=== PATIENT | female | born 1950 | race Caucasian/White ===

== ENCOUNTER 2017-12-31 21:53 | Inpatient (IN) | payer MEDICARE ==
--- NOTE | 2017-12-31 22:42 | RAD ---
AP VIEW CHEST: INDICATIONS: Dyspnea. Diaphoresis. COMPARISON: 05/17/2016 IMPRESSION: There is stable cardiomegaly. No confluent air space opacity or pleural effusion is evident. There is stable elevation of the right hemidiaphragm. No acute osseous abnormality is evident. POS: H
[2017-12-31 23:04] LABS: #Eosinphils 0.2 thou/uL (0.0-0.7); #Monocytes 0.7 thou/uL (0.11-0.59); #Neutrophils 4.1 thou/uL (1.40-6.50); %Basophils 0.4 % (0.0-1.0); %Eosinophils 3.6 % (0.0-10.0); %Lymphocytes 17.1 % (21.0-51.0); %Monocytes 10.7 % (0.0-10.0); %Neutrophils 68.2 % (42.0-75.0); Hemoglobin 10.2 g/dL (12.0-16.0); Mean Corpuscular HGB CONC 32.1 g/dL (32.0-36.0); Mean Corpuscular Hemoglobin 27.9 pg (27.0-31.0); Mean Corpuscular Volume 86.9 fl (81.0-99.0); Mean Platelet Volume 7.3 fL (7.4-10.4); Platelet Count 250 thou/uL (130-400); RBC Distribution Width 14.5 % (11.5-14.5); Red Blood Cell (RBC) Count 3.64 mill/uL (4.20-5.40); White Blood Cell (WBC) Count 6.1 thou/uL (4.8-10.8)
[2017-12-31 23:22] LABS: ALT (SGPT) 20 U/L (8-55); AST (SGOT) 32 U/L (5-34); Albumin 3.3 g/dL (3.4-4.8); Alkaline Phosphatase 94 U/L (40-150); Anion Gap 12 mmol/L (10-20); BUN (Urea Nitrogen) 15 mg/dL (9.8-20.1); Bilirubin, Total 1.2 mg/dL (0.2-1.2); CK (CPK) 185 U/L (29-168); Calc. Creatinine Clearance 0 mL/min (70-130); Calcium 8.9 mg/dL (7.8-10.44); Carbon Dioxide 27 mmol/L (23-31); Chloride 105 mmol/L (98-107); Estimated GFR-MDRD 49; Globulin 2.6 g/dL (2.4-3.5); Glucose 87 mg/dL (80-115); Lipase 9 U/L (8-78); Potassium 3.1 mmol/L (3.5-5.1); Protein, Total 5.9 g/dL (6.0-8.3); Sodium 141 mmol/L (136-145)
[2017-12-31] MEDS ORDERED: Labetalol HCl 100 MG/20 ML VIAL ONE (23:25)
[2017-12-31 23:26] LABS: Troponin I 0.036 ng/mL (< 0.028)
[2018-01-01] MEDS ORDERED: Furosemide 40 MG/4 ML VIAL ONE (00:36)
[2018-01-01] MEDS ORDERED: Nitroglycerin 2% Ointment 1 INCH/1 GM Packet ONE (00:36)
[2018-01-01] MEDS ORDERED: Labetalol HCl 100 MG/20 ML VIAL ONE (01:37)
[2018-01-01] MEDS ORDERED: Acetaminophen 325 MG TAB PO PRN (02:51)
[2018-01-01] MEDS ORDERED: Ondansetron HCl/PF 4 MG/2 ML Vial IVP PRN (02:51)
[2018-01-01] MEDS ORDERED: Ondansetron ODT 4 MG TAB SL PRN (02:51)
[2018-01-01] MEDS: Nitroglycerin 2% Ointment 1 INCH/1 GM Packet TOP SCH ×3 (03:45→17:17)
[2018-01-01 03:46] LABS: Troponin I 0.048 ng/mL (< 0.028)
[2018-01-01] MEDS ORDERED: HYDROcodone/Acetaminophen 5/325 mg Tablet PO PRN (04:00)
[2018-01-01] MEDS ORDERED: Guaifenesin DM 100-10/5 ML UDCUP PO PRN (04:00)
[2018-01-01] MEDS ORDERED: Dextrose 5% in Water 1,000 ML IV PRN (04:00)
[2018-01-01] MEDS ORDERED: Dextrose 50% Abboject 50 ML SYRINGE SLOW IVP PRN (04:00)
[2018-01-01] MEDS ORDERED: Enoxaparin Sodium 40 MG/0.4 ML SYRINGE SC SCH (04:00)
[2018-01-01] MEDS: Furosemide 40 MG/4 ML VIAL SLOW IVP SCH ×2 (05:44→14:33)
[2018-01-01] MEDS: hydrALAZINE 20 MG/ML VIAL SLOW IVP PRN ×2 (05:51→12:18)
[2018-01-01] MEDS ORDERED: Aspirin 325 MG TAB PO SCH (08:00)
[2018-01-01 08:02] LABS: CKMB 3.9 ng/mL (0-6.6); Troponin I 0.038 ng/mL (< 0.028)
--- NOTE | 2018-01-01 09:21 | HP ---
PRIMARY CARE PHYSICIAN: Dr. Florida Mejia PRIMARY EQUITY RESEARCH ANALYST: Dr. Lenny Childs DATE OF ADMISSION: 01/01/2018 TIME OF SERVICE: O245. CHIEF COMPLAINT: Shortness of breath. HISTORY OF PRESENT ILLNESS: Ms. Bruce is a 67-year-old female with history of diabetes, insulin-de pendent, hypertension, GERD, CHF and per echo is 05/18/2016 with combined diastolic and systolic, chr onic anemia, CKD, neuropathy and coronary disease. The patient was in normal state of health and presented to the emergency room today with increased sh ortness of breath and diaphoresis. The patient complains she has been having a cough for 7-8 months, seems to be worse when she lays monica k on one of her sides. She has also had some bilateral lower extremity edema. The patient denies an y chest pain. Oxygen saturations have been okay on room air. She has some dyspnea on exertion. She presented to the emergency department where she was found to have a BNP elevated to 1182, CK, CK- MB, and troponin I were normal except for mild elevation of troponin to 0.036. [facility], blood pressure also noted to be 220/92, potassium slightly low at 3.1. We were meyer bsequently called to admit for hypertensive emergency. The patient received medications on the floor, on arrival to the floor blood pressure reported was 13 0/63, repeat while I was in the room was 196/96. She had no complaints except for mild headache. No nausea, vomiting, no fevers or chills. No cough or sputum production. PAST MEDICAL HISTORY: 1. Diabetes mellitus type 2, insulin-dependent. 2. Hypertension. 3. Gastroesophageal reflux disease. 4. Congestive heart failure, chronic combined systolic and diastolic. 5. Anemia of chronic disease. 6. History of pulmonary edema in the past. 7. Chronic kidney disease, stage 3. 8. Neuropathy. 9. Coronary artery disease status post [place] in the past. 10. Gout. 11. She is legally blind. 12. Depression. PAST SURGICAL HISTORY: 1. Stent x4 back when she had her heart attack. 2. Bilateral cataract replacement. 3. Retina repair. 4. x2 remotely. 5. Tonsillectomy. HOME MEDICATIONS: 1. Gabapentin 300 mg p.o. b.i.d. 2. Plavix 75 mg daily. 3. Lisinopril 20 mg p.o. daily. 4. Protonix 40 mg p.o. daily. 5. Colchicine 0.6 mg 1/2 tablet every 2 weeks. 6. Lasix 40 mg p.o. daily. 7. Tylenol #3 p.r.n. 8. Traceba 30 units subcu daily. ALLERGIES: SULFA, ALLOPURINOL. FAMILY HISTORY: Negative for clotting or bleeding disorder, no immune dysfunction. SOCIAL HISTORY: Negative for habits x3. She lives at home, her daughter and granddaughter, sanket childs currently sits with her in the room, help take care of her. REVIEW OF SYSTEMS: A 10-point review of systems was performed and is negative for all systems except as stated as per HPI. PHYSICAL EXAMINATION: VITAL SIGNS: On arrival, temperature was 98.2, pulse 74, blood pressure 220/92, respiratory 18, satt ing 91% on room air. On arrival to the floor, temperature was 98.0, pulse 91, blood pressure 130/63, respiratory rate 19, satting 93% on room air. GENERAL: She is awake. She is alert. She is oriented x3. She is a well-developed, well-nourished, obese white female, appears to be in no distress. HEENT: She was normocephalic, atraumatic. Pupils are sluggish, but reactive bilaterally. Mucous rh ythm moist. She has no visible lesion or thrush. NECK: Supple. She had no lymphadenopathy, no JVD or thyromegaly. She has normal carotid upstrokes. I do not appreciate bruits. RESPIRATORY: Lungs clear bilaterally, no wheezes, no rales or rhonchi with good air movement. Symme tric chest excursion. CARDIOVASCULAR: Normal S1, S2. No S3, S4. No audible murmurs. ABDOMEN: Soft, it is obese, it is nontender. She has good bowel sounds in all 4 quadrants. There i s no rebound, rigidity or guarding. EXTREMITIES: Show no cyanosis, clubbing with trace pedal edema. SKIN: Warm, moist and well perfused. She has no rash or lesions. No palpable cords in her calves. MUSCULOSKELETAL: Normal to inspection. Large joints appear normal. There is no inflammation. No p alpable effusions. NEUROLOGIC: Pupils are sluggish. She can see shadows and movement, but no detail. Cranial nerves I I-XII be grossly intact, there is no focal neurologic deficits. She has normal speech pattern and 5/ 5 strength. LABORATORY DATA: Sodium 141, potassium 3.1, chloride 105, bicarbonate 27, BUN 15, creatinine 1.10, c alcium 8.9, glucose of 87. Liver functions are completely within normal limits. Total protein 5.9, albumin 3.3. CBC showed white count 6.1 with a normal differential. Hemoglobin 16.2, hematocrit 38.7, platelet co unt 250,000. Chest x-ray showed stable cardiomegaly, no confluent airspace opacity or pleural effusion. There is stable elevation of the left hemidiaphragm. No acute osseous abnormality. ASSESSMENT AND PLAN: 1. Acute on chronic combined systolic and diastolic congestive heart failure. BNP is elevated at 11 82, will give IV Lasix, we will get a 2D echocardiogram, it has been sometime since her last one, we will notify Dr. Childs of admission. We will get daily weights, strict I's and O's. 2. Diabetes mellitus type 2, insulin-dependent, we will continue home medications once she is eating . 3. Hypertension. She is on lisinopril and Lasix. We will continue. 4. Anemia. 5. Chronic kidney disease, stable. 6. Peripheral neuropathy as above. 7. Coronary artery disease, status post myocardial infarction. 8. Gout on every other week Colchicine 0.[address] will [address] the patient on observation. We will get serial cardiac biomarkers. Watch her on telem etry and place her on cardioprotective meds.
[2018-01-01] MEDS ORDERED: Acetaminophen/Codeine 30-300mg Tablet PO PRN (11:42)
[2018-01-01] MEDS: Acetaminophen 325 MG TAB PO PRN (12:47)
--- NOTE | 2018-01-01 13:02 | CON ---
DATE OF CONSULTATION: 01/01/2018 REASON FOR CONSULTATION: Previous history of CAD and shortness of breath. PRIMARY CHILD WELFARE DIRECTOR: Dr. Lneny Childs HISTORY: Ms. Bruce is a 67-year-old woman who is a patient of Dr. Lenny Childs. She has a hist ory of CAD, status post stent placement x4 five years ago after having suffered a myocardial infarcti on. She states over the last week and a half she has had diarrhea, nausea, and vomiting. She also had dr anette orozco over the last 3 days. No other ameliorating or relieving factors present. PAST MEDICAL HISTORY: Diabetes mellitus, hypertension, acid reflux, systolic heart failure, chronic kidney disease, gout, depression, legally blind, anemia of chronic disease, cataract surgery, C-secti on, tonsillectomy. HOME MEDICATIONS: Plavix, lisinopril, Protonix, colchicine, Lasix, Tylenol, Traceba and gabapentin. ALLERGIES: SULFA. FAMILY HISTORY: Negative for CAD. REVIEW OF SYSTEMS: Ten point review of systems reviewed, as above, otherwise negative. PHYSICAL EXAMINATION: VITAL SIGNS: Blood pressure 180/93, pulse 71, temperature 96.7. GENERAL: Patient is a pleasant female who is in no acute distress. The patient appears older than he r stated age. NEUROLOGIC: The patient is alert and oriented times 3 with no focal neurologic deficits. HEENT: Sclerae without icterus. Mouth has moist mucous membranes with normal pallor. NECK: No JVD. Carotid upstroke brisk. No bruits bilaterally. LUNGS: Clear to auscultation with unlabored respirations. BACK: No scoliosis or kyphosis. CARDIAC: Regular rate and rhythm with normal S1 and S2. No S3 or S4 noted. No significant rubs, mur murs, thrills, or gallops noted throughout the precordium. PMI is not displaced. There is no parast ernal heave. ABDOMEN: Soft, nontender, nondistended. No peritoneal signs present. No hepatosplenomegaly. No abn ormal striae. EXTREMITIES: 2+ femoral and 2+ dorsalis pedis pulses. No cyanosis, clubbing, or edema. SKIN: No gross abnormalities. PERTINENT LABS: Hemoglobin 10.2. Peak troponin 0.048. BNP of 1242. IMPRESSION: 1. Nausea, vomiting and diarrhea. 2. Coronary artery disease. 3. Status post myocardial infarction. 4. Shortness of breath. RECOMMENDATIONS: Ms. Bruce states her shortness of breath is fairly stable. Her main issue is ritesh sea, vomiting and diarrhea. She has been on colchicine. From a CV standpoint, I am not concerned ab out troponin. This is likely demand ischemia from previous history of CAD. Would continue conservat luz maria therapy. Echo with Doppler is pending. We will review. Recommendations per Dr. Childs in the a .m.
[2018-01-01 13:19] LABS: CKMB 3.6 ng/mL (0-6.6); Troponin I 0.036 ng/mL (< 0.028)
[2018-01-01 19:04] LABS: CKMB 3.2 ng/mL (0-6.6); Troponin I 0.049 ng/mL (< 0.028)
[2018-01-01] MEDS: Atorvastatin Calcium 20 MG TAB PO SCH (20:24)
[2018-01-01] MEDS: Gabapentin 300 MG CAP PO SCH (20:24)
[2018-01-02] MEDS: Nitroglycerin 2% Ointment 1 INCH/1 GM Packet TOP SCH ×3 (02:03→17:12)
[2018-01-02] MEDS: hydrALAZINE 20 MG/ML VIAL SLOW IVP PRN (04:04)
[2018-01-02 05:25] LABS: #Eosinphils 0.2 thou/uL (0.0-0.7); #Lymphocytes 0.6 thou/uL (1.20-3.40); #Monocytes 0.6 thou/uL (0.11-0.59); #Neutrophils 5.2 thou/uL (1.40-6.50); %Basophils 0.4 % (0.0-1.0); %Eosinophils 2.5 % (0.0-10.0); %Lymphocytes 9.3 % (21.0-51.0); %Monocytes 8.5 % (0.0-10.0); %Neutrophils 79.3 % (42.0-75.0); Hemoglobin 9.7 g/dL (12.0-16.0); Mean Corpuscular HGB CONC 31.7 g/dL (32.0-36.0); Mean Corpuscular Hemoglobin 27.7 pg (27.0-31.0); Mean Corpuscular Volume 87.2 fl (81.0-99.0); Mean Platelet Volume 7.3 fL (7.4-10.4); Platelet Count 264 thou/uL (130-400); RBC Distribution Width 14.9 % (11.5-14.5); White Blood Cell (WBC) Count 6.5 thou/uL (4.8-10.8)
[2018-01-02] MEDS: Furosemide 40 MG/4 ML VIAL SLOW IVP SCH (05:30)
[2018-01-02] MEDS: Acetaminophen 325 MG TAB PO PRN ×2 (05:36→11:32)
[2018-01-02 05:37] LABS: Anion Gap 12 mmol/L (10-20); BUN (Urea Nitrogen) 20 mg/dL (9.8-20.1); Calc. Creatinine Clearance 52 mL/min (70-130); Calcium 8.2 mg/dL (7.8-10.44); Carbon Dioxide 26 mmol/L (23-31); Cardiac Risk 4.6 (Less than 4.5); Chloride 107 mmol/L (98-107); Cholesterol 147 mg/dl (< 200 Desired); Estimated GFR-MDRD 34; Glucose 209 mg/dL (80-115); HDL Cholesterol 32 mg/dL (>60 Neg Risk); LDL Cholesterol, Calculated 98 mg/dL; Potassium 3.2 mmol/L (3.5-5.1); Sodium 142 mmol/L (136-145); Triglycerides 87 mg/dL (Less than 150)
[2018-01-02] MEDS: HumaLOG 300 UNITS/3 ML VIAL SC PRN ×4 (06:19→21:20)
[2018-01-02] MEDS ORDERED: Insulin Degludec [Tresiba Flextouch U-100] SC SCH (07:30)
[2018-01-02] MEDS: Lisinopril 20 MG TAB PO SCH (09:23)
[2018-01-02] MEDS: Gabapentin 300 MG CAP PO SCH ×2 (09:23→20:51)
[2018-01-02] MEDS: Clopidogrel Bisulfate 75 MG TAB PO SCH (09:24)
--- NOTE | 2018-01-02 10:53 | PDOC.PN ---
- Subjective Encounter Start Date: 01/02/18 Encounter Start Time: 10:35 Subjective: f/u for CHF exacerbation and dyspnea. Multiple complaints including -: diarrhea, nosebleeding, chest pain, leg pain and weakness. Nursing noted -: fever of 100.2 last pm receiving Tylenol. - Objective Resuscitation Status: Resuscitation Status FULL:Full Resuscitation MAR Reviewed: Yes Vital Signs & Weight: Vital Signs (12 hours) Temp Pulse Resp BP Pulse Ox 01/02/18 08:05 99.0 F 88 17 137/63 95 01/02/18 05:33 100.2 F H 197/87 H 01/02/18 05:13 100.1 F H 86 20 197/84 H 91 L 01/02/18 04:04 80 Weight Admit Weight 208 lb 6.4 oz Weight 208 lb 6.4 oz I&O: 01/01/18 01/02/18 01/03/18 06:59 06:59 06:59 Intake Total 560 Balance 560 Result Diagrams: 01/02/18 04:55 01/02/18 04:55 Additional Labs: Accuchecks 01/01/18 01/01/18 01/01/18 20:50 17:00 10:56 POC Glucose 216 H 180 H 105 Laboratory Tests 12/31/17 12/31/17 01/01/18 22:51 22:51 03:03 Potassium 3.1 L Creatinine 1.10 Hemoglobin A1c B-Natriuretic Peptide 1182.3 H 1242.2 H Triglycerides Cholesterol LDL Cholesterol, Calc HDL Cholesterol 01/02/18 01/02/18 01/02/18 04:55 04:55 04:55 Potassium Creatinine Hemoglobin A1c 7.0 H B-Natriuretic Peptide 901.2 H Triglycerides 87 Cholesterol 147 LDL Cholesterol, Calc 98 HDL Cholesterol 32 EKG Reviewed by me: Yes (Tele - SR in 90's) Phys Exam - Physical Examination Constitutional: NAD alert, responsive HEENT: PERRLA, moist MMs, sclera anicteric, oral pharynx no lesions Neck: no nodes, no JVD, supple diminished in bases Respiratory: no wheezing, no rales, no rhonchi Cardiovascular: RRR, no significant murmur, no rub, gallop Gastrointestinal: soft, non-tender, no distention, positive bowel sounds mild LE edema bilat Musculoskeletal: pulses present Neurological: non-focal, moves all 4 limbs Psychiatric: normal affect, A&O x 3 Skin: no rash, normal turgor, cap refill <2 seconds Dx/Plan (1) Acute on chronic diastolic (congestive) heart failure Code(s): I50.33 - ACUTE ON CHRONIC DIASTOLIC (CONGESTIVE) HEART FAILURE Status : Acute Comment: Improved with Lasix, decrease Lasix 20mg IV q12h, await 2D echo results (2) SHAMEKA (acute kidney injury) Code(s): N17.9 - ACUTE KIDNEY FAILURE, UNSPECIFIED Status: Acute Comment: mild SHAMEKA, decrease Lasix dosing, avoid nephrotoxic meds and contrast media, serial monitoirng (3) CKD (chronic kidney disease), stage III Code(s): N18.3 - CHRONIC KIDNEY DISEASE, STAGE 3 (MODERATE) Status: Chronic (4) Hypertension Code(s): I10 - ESSENTIAL (PRIMARY) HYPERTENSION Status: Chronic Qualifiers: Hypertension type: essential hypertension Qualified Code(s): I10 - Essential (primary) hypertension Comment: Continue Lisinopril and titrate to optimal response (5) Diarrhea Code(s): R19.7 - DIARRHEA, UNSPECIFIED Status: Acute Comment: Check stool for c. diff, Campylobacter, lactoferrin (6) Fever Code(s): R50.9 - FEVER, UNSPECIFIED Status: Acute Comment: ? etiology, check stool studies, monitor trend (7) Hypokalemia Code(s): E87.6 - HYPOKALEMIA Status: Acute Comment: KCL 40meq BID, repeat K + level in am - Plan plan discussed w/ family, PT/OT, social media sr strategy manager, out of bed/ambulate, DVT proph w/SCDs Stable overall -: Decrease Lasix 20mg IV q12h -: Continue Plavix and Lipitor -: Detemir 10u sc daily -: KCL 40meq BID * AM lab: BMP, CBC, stool studies
[2018-01-02] MEDS ORDERED: Furosemide 20 MG/2 ML VIAL SLOW IVP SCH (14:00)
--- NOTE | 2018-01-02 18:38 | PDOC.CTH ---
Cardiology Progress Note - Subjective She is doing better. No chest pain, tightness, pressure, SOB. - Objective Vital Signs Temp Pulse Resp BP Pulse Ox 01/02/18 16:04 99.0 F 78 16 162/68 H 96 01/02/18 12:00 98.9 F 90 17 179/81 H 95 01/02/18 08:05 99.0 F 88 17 137/63 95 01/02/18 08:00 98.9 F 90 17 95 Admit Weight 208 lb 6.4 oz Weight 208 lb 6.4 oz 01/01/18 01/02/18 01/03/18 06:59 06:59 06:59 Intake Total 560 1020 Output Total 670 Balance 560 350 - Physical Examination General/Neuro: alert & oriented x3, NAD Neck: no JVD present Lungs: unlabored respirations Heart: RRR Abdomen: NT/ND Extremities: + edema B (1+) - Telemetry Telemetry Rhythm: NSR - Labs Result Diagrams: 01/02/18 04:55 01/02/18 04:55 Troponin/CKMB CK-MB (CK-2) 3.2 ng/mL (0-6.6) 01/01/18 18:25 Troponin I 0.049 ng/mL (< 0.028) H 01/01/18 18:25 - Assessment/Plan 1. Acute gastroenteritis. 2. CAD 3. Elevated troponins, likely demand ischemia. 4. Acute on chronic systolic heart failure. PLAN: - Would stop IV lasix as creatinine going up. - Fluid balance will be difficult and would only treat with IV lasix once her diarrhea is better. - EF on echo at 45-50% - C-Diff pending. - Replace K. - Will follow.
[2018-01-02] MEDS: Atorvastatin Calcium 20 MG TAB PO SCH (20:51)
[2018-01-03] MEDS: hydrALAZINE 20 MG/ML VIAL SLOW IVP PRN ×2 (00:08→20:31)
[2018-01-03] MEDS: Nitroglycerin 2% Ointment 1 INCH/1 GM Packet TOP SCH ×3 (01:27→18:28)
[2018-01-03 06:06] LABS: Anion Gap 10 mmol/L (10-20); BUN (Urea Nitrogen) 25 mg/dL (9.8-20.1); Calc. Creatinine Clearance 48 mL/min (70-130); Calcium 8.5 mg/dL (7.8-10.44); Carbon Dioxide 27 mmol/L (23-31); Chloride 109 mmol/L (98-107); Estimated GFR-MDRD 31; Glucose 133 mg/dL (80-115); Potassium 3.2 mmol/L (3.5-5.1); Sodium 143 mmol/L (136-145)
[2018-01-03 06:09] LABS: Anisocytosis SLIGHT = 6-15 cells (100X) (0-5/hpf); Eosinophils 3 % (0-10); Hemoglobin 9.8 g/dL (12.0-16.0); Hypochromia SLIGHT = 6-15 cells (100X) (0-5/hpf); Lymphocytes 11 % (21-51); MDiff Complete? YES; Mean Corpuscular HGB CONC 31.3 g/dL (32.0-36.0); Mean Corpuscular Hemoglobin 27.8 pg (27.0-31.0); Mean Corpuscular Volume 88.8 fl (81.0-99.0); Mean Platelet Volume 7.5 fL (7.4-10.4); Monocytes 10 % (0-10); Neutrophil 76 % (42-75); PLT Morphology Comment Appears Adequate; Platelet Count 247 thou/uL (130-400); RBC Distribution Width 15.1 % (11.5-14.5); Red Blood Cell (RBC) Count 3.53 mill/uL (4.20-5.40); White Blood Cell (WBC) Count 6.5 thou/uL (4.8-10.8)
[2018-01-03 07:55] VITALS: BMI 35.6
[2018-01-03] MEDS: Clopidogrel Bisulfate 75 MG TAB PO SCH (09:47)
[2018-01-03] MEDS: Gabapentin 300 MG CAP PO SCH ×2 (09:47→20:30)
[2018-01-03] MEDS: Lisinopril 20 MG TAB PO SCH (09:47)
[2018-01-03] MEDS: Insulin Detemir 100 UNITS/ML 10 UNITS in Pre-Filled Syringe 1 EACH SC SCH (09:48)
[2018-01-03] MEDS: Acetaminophen 325 MG TAB PO PRN (09:50)
[2018-01-03] MEDS: HumaLOG 300 UNITS/3 ML VIAL SC PRN ×2 (11:26→16:43)
[2018-01-03] MEDS ORDERED: Potassium Chloride 20 MEQ TAB PO SCH ×4 (14:00)
--- NOTE | 2018-01-03 14:03 | PDOC.PN ---
- Subjective Encounter Start Date: 01/03/18 Encounter Start Time: 14:00 Subjective: f/u for CHF exacerbation and pt states feeling much better. Low- grade -: fever noted over 24h ago now resolved. No diarrhea. Good appetite. -: Still with multiple complaints but overall feels improved. - Objective Resuscitation Status: Resuscitation Status FULL:Full Resuscitation MAR Reviewed: Yes Vital Signs & Weight: Vital Signs (12 hours) Temp Pulse Pulse Pulse Resp BP BP 01/03/18 11:17 98.2 F 88 17 01/03/18 09:49 94 94 140/84 134/84 01/03/18 08:00 98.6 F 81 16 01/03/18 07:23 98.6 F 81 16 01/03/18 04:00 97.7 F 75 16 BP Pulse Ox 01/03/18 11:17 142/68 H 96 01/03/18 09:49 01/03/18 08:00 01/03/18 07:23 158/80 H 96 01/03/18 04:00 152/70 H 96 Weight Admit Weight 208 lb 6.4 oz Weight 208 lb I&O: 01/02/18 01/03/18 01/04/18 06:59 06:59 06:59 Intake Total 560 1500 Output Total 670 Balance 560 830 Result Diagrams: 01/03/18 05:24 01/03/18 05:24 Additional Labs: Accuchecks 01/03/18 01/03/18 01/02/18 10:24 05:23 20:50 POC Glucose 276 H 131 H 240 H 01/02/18 16:31 POC Glucose 222 H Radiology Reviewed by me: Yes (2D echo - EF 45-50%, mod-severe TR, mod MR) EKG Reviewed by me: Yes (Tele - SR) Phys Exam - Physical Examination Constitutional: NAD alert, smiling HEENT: PERRLA, moist MMs, sclera anicteric, oral pharynx no lesions Neck: no nodes, no JVD, supple Respiratory: no wheezing, no rales, no rhonchi, clear to auscultation bilateral II/ GWEN RUSB Cardiovascular: RRR, no rub, gallop Gastrointestinal: soft, non-tender, no distention, positive bowel sounds minimal LE edema Musculoskeletal: pulses present Neurological: non-focal, normal sensation, moves all 4 limbs Psychiatric: normal affect, A&O x 3 Skin: no rash, normal turgor, cap refill <2 seconds Dx/Plan (1) Acute on chronic diastolic (congestive) heart failure Code(s): I50.33 - ACUTE ON CHRONIC DIASTOLIC (CONGESTIVE) HEART FAILURE Status : Acute Comment: Improved with Lasix, currently Lasix held secondary to renal function, continue to monitor clinically (2) SHAMEKA (acute kidney injury) Code(s): N17.9 - ACUTE KIDNEY FAILURE, UNSPECIFIED Status: Acute Comment: mild SHAMEKA, Lasix on hold, serial monitoring (3) CKD (chronic kidney disease), stage III Code(s): N18.3 - CHRONIC KIDNEY DISEASE, STAGE 3 (MODERATE) Status: Chronic (4) Hypertension Code(s): I10 - ESSENTIAL (PRIMARY) HYPERTENSION Status: Chronic Qualifiers: Hypertension type: essential hypertension Qualified Code(s): I10 - Essential (primary) hypertension Comment: Continue Lisinopril and titrate to optimal response (5) Diarrhea Code(s): R19.7 - DIARRHEA, UNSPECIFIED Status: Acute Comment: Likely viral etiology, stool studies negative, resolving (6) Fever Code(s): R50.9 - FEVER, UNSPECIFIED Status: Acute Comment: ? etiology, suspected GI source, resolved (7) Hypokalemia Code(s): E87.6 - HYPOKALEMIA Status: Acute Comment: KCL 40meq BID, repeat K + level in am - Plan PT/OT, social worker aide, out of bed/ambulate Stable overall -: OOB/ambulate -: KCL 40meq x 1 dose now and BID -: Lasix on hold due to renal function -: AM lab: BMP * Likely home in am 01/04/18
[2018-01-03] MEDS: Potassium Chloride 20 MEQ TAB PO SCH ×2 (16:42)
--- NOTE | 2018-01-03 18:31 | PDOC.CTH ---
Cardiology Progress Note - Subjective She is doing much better. No chest pain, tightness, pressure, SOB. She continues to have diarrhea but better. - Objective Vital Signs Temp Pulse Pulse Pulse Resp BP BP 01/03/18 15:37 98.0 F 77 16 01/03/18 11:17 98.2 F 88 17 01/03/18 09:49 94 94 140/84 134/84 01/03/18 08:00 98.6 F 81 16 01/03/18 07:23 98.6 F 81 16 BP Pulse Ox 01/03/18 15:37 152/64 H 97 01/03/18 11:17 142/68 H 96 01/03/18 09:49 01/03/18 08:00 01/03/18 07:23 158/80 H 96 Admit Weight 208 lb 6.4 oz Weight 208 lb 01/02/18 01/03/18 01/04/18 06:59 06:59 06:59 Intake Total 560 1500 1510 Output Total 670 500 Balance 076 235 0575 - Physical Examination General/Neuro: alert & oriented x3, NAD Neck: no JVD present Lungs: unlabored respirations Heart: RRR Abdomen: NT/ND Extremities: + edema B (1+) - Telemetry Telemetry Rhythm: NSR - Labs Result Diagrams: 01/03/18 05:24 01/03/18 05:24 Troponin/CKMB CK-MB (CK-2) 3.2 ng/mL (0-6.6) 01/01/18 18:25 Troponin I 0.049 ng/mL (< 0.028) H 01/01/18 18:25 - Assessment/Plan 1. Acute gastroenteritis. 2. CAD, stable 3. Elevated troponins, likely demand ischemia. 4. Acute on chronic systolic heart failure. PLAN: - Continue to hold diuresis. - EF on echo at 45-50% - Replace K - CV stable, no new recs. - Would only restart Lasix PRN and on discharge back to home dose.
[2018-01-03] MEDS: Atorvastatin Calcium 20 MG TAB PO SCH (20:31)
[2018-01-04] MEDS: Nitroglycerin 2% Ointment 1 INCH/1 GM Packet TOP SCH ×2 (01:25→11:29)
[2018-01-04 05:25] LABS: Anion Gap 13 mmol/L (10-20); BUN (Urea Nitrogen) 29 mg/dL (9.8-20.1); Calc. Creatinine Clearance 46 mL/min (70-130); Calcium 8.2 mg/dL (7.8-10.44); Carbon Dioxide 24 mmol/L (23-31); Chloride 109 mmol/L (98-107); Estimated GFR-MDRD 29; Glucose 179 mg/dL (80-115); Potassium 4.2 mmol/L (3.5-5.1); Sodium 142 mmol/L (136-145)
[2018-01-04] MEDS: HumaLOG 300 UNITS/3 ML VIAL SC PRN ×2 (09:07→11:37)
[2018-01-04] MEDS: Insulin Detemir 100 UNITS/ML 10 UNITS in Pre-Filled Syringe 1 EACH SC SCH (09:08)
[2018-01-04] MEDS: Gabapentin 300 MG CAP PO SCH (09:09)
[2018-01-04] MEDS: Clopidogrel Bisulfate 75 MG TAB PO SCH (09:09)
[2018-01-04] MEDS: Lisinopril 20 MG TAB PO SCH (09:09)
[2018-01-04] MEDS: Potassium Chloride 20 MEQ TAB PO SCH ×4 (09:09→17:28)
--- NOTE | 2018-01-04 12:15 | DIS ---
DATE OF ADMISSION: 01/01/2018 DATE OF DISCHARGE: 01/04/2018 DISCHARGE DIAGNOSES: 1. Acute on chronic diastolic congestive heart failure with ejection fraction of 45%-50%. 2. Acute kidney injury on chronic kidney disease stage 3, improved. 3. Gastroenteritis with salmonella group C. 4. Hypertension, stable. 5. Hypokalemia, resolved. 6. Deconditioning. 7. Diabetes mellitus type 2, insulin requiring. CONSULTATION: Dr. Childs with Cardiology Service. PERTINENT LABORATORY DATA AND IMAGING DATA: Potassium ranged between 3.1-4.2, creatinine ranged betw een 1.10-1.72 with estimated GFR ranging between 29-49. Troponin I ranged between 0.036-0.049. BNP ranged between 2242-3046, total cholesterol 147, triglycerides 87, HDL 32, LDL 98. Hemoglobin A1c 7. 0. CBC showed hemoglobin ranging between 9.7-10.2. Stool culture dated 01/02/2018 positive for salm onella group C. Campylobacter and Shigella toxin negative on 01/02/2018. Stool lactoferrin positive on 01/02/2018. C. difficile antigen and toxin on 01/02/2018 negative. Portable chest x-ray dated 0 12/31/2017 showed no acute cardiopulmonary process. A 2D transthoracic echocardiogram dated 8 showed ejection fraction 45%-50%. Grade 2/3 diastolic dysfunction. Moderate mitral annular calcif ication. Moderate to severe mitral valve regurgitation. Moderate tricuspid valve regurgitation. El evated right ventricular systolic pressure 41 mmHg. HOSPITAL COURSE: The patient initially presented with increased shortness of breath in the context o f known diastolic congestive heart failure, placed on IV Lasix and undergoing 2D transthoracic echoca rdiogram showing findings as stated previously. The patient diuresed appropriately with overall decr ease in shortness of breath and dyspnea. The patient was evaluated by the Cardiology Service with re commendations for diuretic therapy and general supportive care. The patient was noted with mild hypo kalemia, receiving potassium chloride replacement therapy with stabilization and resolution of the hy pokalemia by the time of discharge. The patient continued to have loose stool and diarrhea during he r hospital course, undergoing stool evaluation with Salmonella group C positivity noted on 01/02/2018 . The patient treated with ampicillin 250 mg q.i.d. with recommendations for 7-day course of antibio tic therapy after discharge. Due to patient's overall deconditioned status and comorbid conditions, patient was deemed appropriate candidate for ongoing home health services including physical therapy. The patient receiving assistance from case management services for coordination of home health care on discharge. I have examined the patient at the time of discharge and discussed discharge planning , laboratory findings and plans for followup at which point patient has verbalized understanding and agreement. The patient overall clinically stable and ready for discharge on 01/04/2018. DISCHARGE MEDICATIONS: 1. Tylenol #3 300 mg/30 mg 1 tablet p.o. q. 12 hours p.r.n. pain. 2. Ampicillin 250 mg 1 tab p.o. q.i.d. x7 days. 3. Plavix 75 mg one tab p.o. daily. 4. Colchicine 0.3 mg p.o. every 2 weeks. 5. Lasix 40 mg p.o. daily p.r.n. 6. Gabapentin 300 mg p.o. b.i.d. 7. Tresiba FlexTouch 30 units subcutaneously daily. 8. Lisinopril 20 mg 1 tab p.o. daily. 9. Protonix 40 mg one tab p.o. daily. 10. Simvastatin 40 mg p.o. at bedtime. FOLLOWUP: The patient will follow up with Dr. Florida Mejia, primary care provider on 01/11/2018 at 1:15 p.m. Patient will follow up with Dr. Spring with Nephrology Service and to call his office fo r appointment time and date. The patient will follow up with Dr. Childs with [facility] and to call his office for appointment time and date. CONDITION ON DISCHARGE: Stable. ACTIVITY: Ad maegan. DIET: Heart healthy and ADA. SPECIAL INSTRUCTIONS: Cardiac rehabilitation outpatient. Home health services including physical th erapy on discharge. CODE STATUS: FULL. DISPOSITION: Home 01/04/2018. Total time preparing and coordinating discharge is 35 minutes.
[2018-01-04 17:16] VITALS: BP 142/66; TEMP 98.9
== END 2018-01-04 17:35 | disposition home or self-care (01) | DRG 291 ==
LOC: ERS 21:53 → 2NO 01-01 00:27
PROVIDERS: ADMIT Internal Medicine Infectious Disease; ATTEND Internal Medicine Infectious Disease
DX: I13.0 Hypertensive heart and chronic kidney disease with heart failure and stage 1 through stage 4 chronic kidney disease, or unspecified chronic kidney disease (principal); I50.43 Acute on chronic combined systolic (congestive) and diastolic (congestive) heart failure; N17.9 Acute kidney failure, unspecified; E11.22 Type 2 diabetes mellitus with diabetic chronic kidney disease; E11.42 Type 2 diabetes mellitus with diabetic polyneuropathy; A02.0 Salmonella enteritis; I24.8 Other forms of acute ischemic heart disease; K21.9 Gastro-esophageal reflux disease without esophagitis; I25.10 Atherosclerotic heart disease of native coronary artery without angina pectoris; D63.1 Anemia in chronic kidney disease; N18.3 Chronic kidney disease, stage 3 (moderate); M10.9 Gout, unspecified; I25.2 Old myocardial infarction; Z95.5 Presence of coronary angioplasty implant and graft; Z79.02 Long term (current) use of antithrombotics/antiplatelets; Z79.899 Other long term (current) drug therapy; Z79.4 Long term (current) use of insulin; E87.6 Hypokalemia
CPT/HCPCS: 36415; 36416; 71045; 80048; 80053; 80061; 82553; 83036; 83630; 83690; 83880; 84484; 85007; 85025; 85027; 87045; 87046; 87077; 87186; 87324; 87449; 87899; 93005; 93306; 93798; 96374; 96375; 96376; A4216; J0360; J1650; J1815; J1940

== ENCOUNTER 2018-01-22 18:42 | Emergency (ER) | payer MEDICARE ==
[~2018-01-22 18:42] MED LIST: ISOVUE-370 76%-LOCM 1 ML ONE; Iopamidol 370 76% 50 ML VIAL FS ONE
[2018-01-22 19:24] LABS: #Eosinphils 0.2 thou/uL (0.0-0.7); #Lymphocytes 0.6 thou/uL (1.20-3.40); #Monocytes 0.5 thou/uL (0.11-0.59); %Basophils 0.3 % (0.0-1.0); %Eosinophils 3.2 % (0.0-10.0); %Lymphocytes 7.9 % (21.0-51.0); %Monocytes 6.9 % (0.0-10.0); %Neutrophils 81.7 % (42.0-75.0); Hemoglobin 9.8 g/dL (12.0-16.0); Mean Corpuscular Hemoglobin 29.9 pg (27.0-31.0); Mean Corpuscular Volume 90.5 fl (81.0-99.0); Mean Platelet Volume 8.1 fL (7.4-10.4); Platelet Count 196 thou/uL (130-400); RBC Distribution Width 15.9 % (11.5-14.5); Red Blood Cell (RBC) Count 3.29 mill/uL (4.20-5.40); White Blood Cell (WBC) Count 7.4 thou/uL (4.8-10.8)
[2018-01-22 19:37] LABS: ALT (SGPT) 19 U/L (8-55); AST (SGOT) 30 U/L (5-34); Albumin 3.6 g/dL (3.4-4.8); Alkaline Phosphatase 94 U/L (40-150); Anion Gap 10 mmol/L (10-20); BUN (Urea Nitrogen) 35 mg/dL (9.8-20.1); Bilirubin, Total 0.9 mg/dL (0.2-1.2); CK (CPK) 494 U/L (29-168); Calc. Creatinine Clearance 0 mL/min (70-130); Calcium 8.4 mg/dL (7.8-10.44); Carbon Dioxide 27 mmol/L (23-31); Chloride 107 mmol/L (98-107); Estimated GFR-MDRD 31; Globulin 2.3 g/dL (2.4-3.5); Glucose 221 mg/dL (80-115); Potassium 4.2 mmol/L (3.5-5.1); Protein, Total 5.9 g/dL (6.0-8.3); Sodium 140 mmol/L (136-145)
[2018-01-22 19:41] LABS: Troponin I 0.024 ng/mL (< 0.028)
--- NOTE | 2018-01-22 20:31 | RAD ---
PORTABLE CHEST: 01/22/18 HISTORY: Dyspnea. Patient was eating a sandwich and had the feeling that the sandwich stuck in her throat. COMPARISON: 05/17/16 study. Heart size is enlarged. There are atherosclerotic changes of the aorta. There is what appears to be f ree air under the right hemidiaphragm. No pneumomediastinum is seen. The lungs are clear of infiltrat es. IMPRESSION: Possible free air into the right hemidiaphragm. This was discussed with Michelle Cunha and CT will be performed for further assessment. POS: [facility]
[2018-01-22] MEDS ORDERED: Ondansetron ODT 4 MG TAB ONE (20:59)
[2018-01-22] MEDS ORDERED: Morphine 4 MG/ML VIAL ONE (20:59)
--- NOTE | 2018-01-22 22:14 | CT ---
CT OF ABDOMEN AND PELVIS PERFORMED WITH INTRAVENOUS CONTRAST ENHANCEMENT: 01/22/18 HISTORY: Patient had questionable free air seen under the right hemidiaphragm on chest x-ray. Small bilateral pleural effusions, right larger than left are noted. There is some linear parenchymal change in the lung bases. Some of this linear density in the left base is curvilinear in nature and is what caused the appearance of air under the hemidiaphragm and actually just represents some linear scarring. This just curves in the same shape as the hemidiaphragm. Small amount of free fluid is see n anterior to the liver which shows no focal abnormalities. The spleen and pancreas regions are unrem arkable. Areas of increased attenuation within the gallbladder consistent with some small stones. Right and left adrenal glands and right and left kidneys are normal in size. There is some trace free fluid seen in the region of the mesentery and in the right pericolic gutter. There is also some free fluid noted within the pelvis. CT OF PELVIS PERFORMED WITH CONTRAST ENHANCEMENT: No adenopathy or mass. No free fluid. Sigmoid diverticulosis is noted. IMPRESSION: 1. Small bilateral pleural effusions right larger than left with minimal ascites also incidental ly noted. 2. Gallstones. 3. No evidence of free air. 4. Some mild edema changes are seen within the subcutaneous fat. POS: [facility]
== END 2018-01-23 00:59 | disposition home or self-care (01) ==
LOC: ERS 18:42
DX: R05 Cough (principal); M19.90 Unspecified osteoarthritis, unspecified site; D64.9 Anemia, unspecified; I50.9 Heart failure, unspecified; E11.40 Type 2 diabetes mellitus with diabetic neuropathy, unspecified; I25.2 Old myocardial infarction; M10.9 Gout, unspecified; F32.9 Major depressive disorder, single episode, unspecified; Z79.899 Other long term (current) drug therapy; Z79.82 Long term (current) use of aspirin
CPT/HCPCS: 36415; 71045; 74177; 80053; 82553; 83880; 84484; 85025; 87040; 93005; 96374; J2270; Q0162

== ENCOUNTER 2018-05-09 07:12 | Inpatient (IN) | payer MEDICARE ==
[2018-05-09 08:13] LABS: Cardiac Risk 4.2 (Less than 4.5)
[2018-05-09] MEDS ORDERED: Acetaminophen 500 MG TAB ONE (08:14)
[2018-05-09] MEDS ORDERED: Zolpidem Tartrate 5 MG TAB PO PRN (10:35)
[2018-05-09] MEDS ORDERED: Guaifenesin DM 100-10/5 ML UDCUP PO PRN (10:35)
[2018-05-09] MEDS ORDERED: Milk Of Magnesia 30 ML UDCUP PO PRN (10:35)
[2018-05-09 11:06] VITALS: BMI 30.5
[2018-05-09] MEDS ORDERED: Acetaminophen/Codeine 30-300mg Tablet PO PRN (11:21)
[2018-05-09] MEDS ORDERED: Ondansetron ODT 4 MG TAB PO PRN (11:24)
[2018-05-09] MEDS ORDERED: Colchicine 0.3 MG TAB PO SCH (11:30)
[2018-05-09] MEDS: hydrALAZINE 25 MG TAB PO SCH ×2 (14:04→20:21)
[2018-05-09] MEDS: Atorvastatin Calcium 20 MG TAB PO SCH (20:20)
[2018-05-09] MEDS: Carvedilol 6.25 MG TAB PO SCH (20:20)
[2018-05-09] MEDS: Gabapentin 300 MG CAP PO SCH (20:21)
[2018-05-09] MEDS: Sodium Chloride 0.9% 1,000 ML IV SCH (20:22)
[2018-05-10] MEDS ORDERED: Dextrose 50% Abboject 50 ML SYRINGE IVP PRN (00:27)
[2018-05-10] MEDS ORDERED: Dextrose 5% in Water 1,000 ML IV PRN (00:27)
[2018-05-10] MEDS: DULoxetine 60 MG CAP PO SCH (05:02)
[2018-05-10] MEDS: Gabapentin 300 MG CAP PO SCH ×2 (05:02→20:32)
[2018-05-10] MEDS: Furosemide 40 MG TAB PO SCH (05:02)
[2018-05-10] MEDS: Clopidogrel Bisulfate 75 MG TAB PO SCH (05:02)
[2018-05-10] MEDS: Carvedilol 6.25 MG TAB PO SCH ×2 (05:03→20:31)
[2018-05-10] MEDS: hydrALAZINE 25 MG TAB PO SCH ×3 (05:04→21:31)
[2018-05-10 05:47] LABS: #Eosinphils 0.3 thou/uL (0.0-0.7); #Lymphocytes 0.8 thou/uL (1.20-3.40); #Monocytes 0.4 thou/uL (0.11-0.59); #Neutrophils 3.1 thou/uL (1.40-6.50); %Basophils 0.5 % (0.0-1.0); %Eosinophils 6.4 % (0.0-10.0); %Lymphocytes 16.5 % (21.0-51.0); %Monocytes 8.6 % (0.0-10.0); Hemoglobin 8.7 g/dL (12.0-16.0); Mean Corpuscular HGB CONC 33.2 g/dL (32.0-36.0); Mean Corpuscular Hemoglobin 28.7 pg (27.0-31.0); Mean Corpuscular Volume 86.6 fL (78.0-98.0); Mean Platelet Volume 7.1 fL (7.4-10.4); Platelet Count 179 thou/uL (130-400); RBC Distribution Width 13.5 % (11.5-14.5); Red Blood Cell (RBC) Count 3.03 mill/uL (4.20-5.40); White Blood Cell (WBC) Count 4.6 thou/uL (4.8-10.8)
[2018-05-10 05:54] LABS: Anion Gap 13 mmol/L (10-20); BUN (Urea Nitrogen) 38 mg/dL (9.8-20.1); Calc. Creatinine Clearance 38 mL/min (70-130); Calcium 8.6 mg/dL (7.8-10.44); Carbon Dioxide 26 mmol/L (23-31); Chloride 106 mmol/L (98-107); Estimated GFR-MDRD 29; Glucose 244 mg/dL (80-115); Sodium 141 mmol/L (136-145)
[2018-05-10] MEDS: Lisinopril 20 MG TAB PO SCH (07:43)
[2018-05-10] MEDS ORDERED: HEPARIN ONE (08:41)
[2018-05-10] MEDS ORDERED: D5W ONE (08:41)
[2018-05-10] MEDS ORDERED: Lidocaine 1% (PF) 30 ML VIAL ONE (08:42)
[2018-05-10] MEDS ORDERED: Heparin 10,000 UNITS/1 ML VIAL ONE ×2 (09:47→09:57)
[2018-05-10] MEDS ORDERED: Clopidogrel Bisulfate 300 MG TAB ONE (09:57)
[2018-05-10] MEDS ORDERED: Iopamidol 370 76% 100 ML VIAL ONE (10:45)
[2018-05-10] MEDS ORDERED: Iopamidol 370 76% 50 ML VIAL FS ONE (10:45)
[2018-05-10] MEDS ORDERED: Nitroglycerin 0.4 MG TAB (25 Tab Bottle) SL PRN (12:09)
--- NOTE | 2018-05-10 15:18 | EKG ---
Test Reason : POST STENT Blood Pressure : / mmHG Vent. Rate : 066 BPM Atrial Rate : 066 BPM P-R Int : 146 ms QRS Dur : 148 ms QT Int : 488 ms P-R-T Axes : 056 -45 -35 degrees QTc Int : 511 ms Normal sinus rhythm Left axis deviation Right bundle branch block Inferior infarct (cited on or before 18-MAY-2016) Abnormal ECG Confirmed by BLANCO ONTIVEROS, QUETA ([id number]) on 05/10/2018 3:18:12 PM Referred By: MATTIE Confirmed By:QUETA SIMEON MD
[2018-05-10] MEDS: Sodium Chloride 0.9% 1,000 ML IV SCH (15:19)
[2018-05-10] MEDS: HumaLOG 300 UNITS/3 ML VIAL SC PRN ×2 (17:29→20:37)
[2018-05-10] MEDS: Atorvastatin Calcium 20 MG TAB PO SCH (20:31)
[2018-05-11 05:25] LABS: #Eosinphils 0.3 thou/uL (0.0-0.7); #Lymphocytes 0.6 thou/uL (1.20-3.40); #Monocytes 0.4 thou/uL (0.11-0.59); #Neutrophils 3.7 thou/uL (1.40-6.50); %Basophils 0.4 % (0.0-1.0); %Eosinophils 5.4 % (0.0-10.0); %Lymphocytes 11.7 % (21.0-51.0); %Monocytes 8.6 % (0.0-10.0); Hemoglobin 8.2 g/dL (12.0-16.0); Mean Corpuscular HGB CONC 33.5 g/dL (32.0-36.0); Mean Corpuscular Hemoglobin 28.9 pg (27.0-31.0); Mean Corpuscular Volume 86.3 fL (78.0-98.0); Mean Platelet Volume 7.3 fL (7.4-10.4); Platelet Count 178 thou/uL (130-400); RBC Distribution Width 13.7 % (11.5-14.5); Red Blood Cell (RBC) Count 2.84 mill/uL (4.20-5.40); White Blood Cell (WBC) Count 4.9 thou/uL (4.8-10.8)
[2018-05-11 05:39] LABS: ALT (SGPT) 10 U/L (8-55); AST (SGOT) 15 U/L (5-34); Albumin 2.8 g/dL (3.4-4.8); Alkaline Phosphatase 74 U/L (40-150); Anion Gap 9 mmol/L (10-20); BUN (Urea Nitrogen) 37 mg/dL (9.8-20.1); Bilirubin, Total 0.4 mg/dL (0.2-1.2); Calc. Creatinine Clearance 29 mL/min (70-130); Calcium 8.3 mg/dL (7.8-10.44); Carbon Dioxide 29 mmol/L (23-31); Chloride 103 mmol/L (98-107); Estimated GFR-MDRD 22; Globulin 2.8 g/dL (2.4-3.5); Glucose 192 mg/dL (80-115); Potassium 4.3 mmol/L (3.5-5.1); Protein, Total 5.6 g/dL (6.0-8.3); Sodium 137 mmol/L (136-145)
[2018-05-11 07:03] VITALS: BP 120/59; TEMP 98.8
[2018-05-11] MEDS ORDERED: Insulin Glargine 30 UNITS in Pre-Filled Syringe 1 EACH SC SCH (08:00)
[2018-05-11] MEDS: TRESIBA U SC SCH (08:00)
[2018-05-11] MEDS: Clopidogrel Bisulfate 75 MG TAB PO SCH (08:27)
[2018-05-11] MEDS: Furosemide 40 MG TAB PO SCH (08:27)
[2018-05-11] MEDS: Carvedilol 6.25 MG TAB PO SCH (08:27)
[2018-05-11] MEDS: DULoxetine 60 MG CAP PO SCH (08:27)
[2018-05-11] MEDS: Lisinopril 20 MG TAB PO SCH (08:27)
[2018-05-11] MEDS: hydrALAZINE 25 MG TAB PO SCH (08:27)
[2018-05-11] MEDS: Gabapentin 300 MG CAP PO SCH (08:28)
[2018-05-12] MEDS ORDERED: Insulin Glargine 30 UNITS in Pre-Filled Syringe 1 EACH SC SCH (07:30)
== END 2018-05-11 09:26 | disposition home or self-care (01) | DRG 247 ==
LOC: CCL 07:12 → 2NO 10:21
PROVIDERS: ADMIT Internal Medicine Cardiovascular Disease; ATTEND Internal Medicine Cardiovascular Disease
PROC: 027034Z Dilation of Coronary Artery, One Artery with Drug-eluting Intraluminal Device, Percutaneous Approach (ICD-10-PCS; principal; 2018-05-10)
PROC: 4A023N7 Measurement of Cardiac Sampling and Pressure, Left Heart, Percutaneous Approach (ICD-10-PCS; 2018-05-10)
PROC: B211YZZ Fluoroscopy of Multiple Coronary Arteries using Other Contrast (ICD-10-PCS; 2018-05-10)
DX: I25.10 Atherosclerotic heart disease of native coronary artery without angina pectoris (principal); I25.5 Ischemic cardiomyopathy; E11.319 Type 2 diabetes mellitus with unspecified diabetic retinopathy without macular edema; Z01.810 Encounter for preprocedural cardiovascular examination
CPT/HCPCS: 36415; 36416; 80048; 80053; 80061; 85025; 85027; 85347; 85610; 85730; 92928; 93005; 93010; 93454; 93798; A4216; C1769; C1874; C1887; C9600; J1644; J2001; Q0162

== ENCOUNTER 2019-02-27 23:32 | Inpatient (IN) | payer MEDICARE ==
[2019-02-28] MEDS ORDERED: Pantoprazole 80 MG in Sodium Chloride 0.9% 100 ML IVPB SCH (01:15)
[2019-02-28] MEDS ORDERED: Acetaminophen 325 MG TAB PO PRN (03:00)
[2019-02-28] MEDS ORDERED: Dextrose 5% in Water 1,000 ML IV PRN (03:20)
[2019-02-28] MEDS ORDERED: Dextrose 50% Abboject 50 ML SYRINGE SLOW IVP PRN (03:20)
[2019-02-28] MEDS ORDERED: Dextrose 50% Abboject 50 ML SYRINGE ONE ×2 (03:21→20:38)
[2019-02-28] MEDS ORDERED: Sodium Chloride 0.9% 1,000 ML IV SCH (03:30)
--- NOTE | 2019-02-28 03:56 | HP ---
PRIMARY CARE PROVIDER: [place] Mejia MD CHIEF COMPLAINT: Diarrhea. HISTORY OF PRESENT ILLNESS: Ms. Bruce is a pleasant 68-year-old lady, who was seen at [facility] on 02/28/2019. Therefore, she was transferred here from the emergency room at [place], where she presented complaining of diarrhea. She reports that approximately a month ago, she was treated with 10 days of an oral antibiotic for bronchitis. She started having diarrhea one week ago. She reports multiple loose stools. She denies any blood in stool. However, at [place], she was found to have occult blood in stool. She denies any abdominal pain, nausea, or vomiting. She reports generalized weakness. She denies any fevers. REVIEW OF SYSTEMS: All other systems reviewed and found to be negative. PAST MEDICAL HISTORY: Diabetes mellitus type 2, hypertension, gastroesophageal reflux disease, congestive heart failure, combined systolic and diastolic, anemia of chronic disease, pulmonary edema, chronic kidney disease, stage 3, neuropathy, coronary artery disease, status post [place], gout, legally blind, and depression. PAST SURGICAL HISTORY: PCI with stents, bilateral cataract surgery, retina repair, section x2, and tonsillectomy. FAMILY HISTORY: No family history of premature coronary artery disease. SOCIAL HISTORY: No history of tobacco use, alcohol use, or recreational drug use. She lives at home with her daughter and son-in-law. ALLERGIES: SULFA AND ALLOPURINOL. CURRENT MEDICATIONS: 1. Gabapentin 300 mg 2 times a day. 2. Plavix 75 mg daily. 3. Lisinopril 20 mg daily. 4. Pantoprazole 40 mg daily. 5. Colchicine 0.3 mg every two weeks. 6. Lasix 40 mg as needed. 7. Aspirin 81 mg daily. 8. Coreg 12.5 mg 2 times a day. 9. Simvastatin 40 mg daily. 10. Duloxetine 60 mg daily. PHYSICAL EXAMINATION: GENERAL: On examination, Ms. Bruce is awake and alert, not in acute distress. VITAL SIGNS: Blood pressure is 124/58, pulse 71, respiratory rate 18, and oxygen saturation 98% on room air. She is afebrile. EYES: No scleral icterus, no conjunctival pallor. ENT: Moist mucosal membranes. No oropharyngeal erythema or exudates. NECK: Supple, nontender, trachea is midline. RESPIRATORY: Accessory muscles of breathing are not active. Chest wall movements are symmetric bilaterally. LUNGS: Clear to auscultation without wheeze, rhonchi, or crepitations. CARDIOVASCULAR: S1 and S2 are heard, regular. Peripheral pulses palpable. ABDOMEN: Soft, nontender, bowel sounds heard. NEUROLOGIC: Cranial nerves 2 through 12 are intact. MUSCULOSKELETAL: She has bilateral lower extremity pitting edema. Power is 5/5 in all 4 extremities. SKIN: Few bruises. LYMPHATIC: No cervical lymphadenopathy. PSYCHIATRIC: Normal mood, normal affect, the patient is oriented to person, place, and time. LABORATORY DATA: Ms. Bruce's labs and investigations were reviewed. Had normal sinus rhythm, no ST changes to suggest an acute coronary syndrome. She had normal sodium, normal potassium, elevated blood urea nitrogen of 53, elevated creatinine of 2.5, she had a creatinine of 1.99 on 10/31/2018, normal total bilirubin, normal AST, normal ALT, normal alkaline phosphatase, elevated BNP of 1432, normal white count, normocytic anemia with hemoglobin 6.9. Hemoglobin was 8.2 in 09/2018, decreased platelet count of 150,000. Urinalysis that was negative for nitrite and leukocyte esterase. She had positive stool occult blood test. ASSESSMENT AND PLAN: Ms. Bruce is a pleasant 68-year-old lady, who was seen at [facility] on 02/28/2019. Her problem list includes: 1. Gastrointestinal bleed: Ms. Bruce is presenting with symptomatic anemia from anemia of acute blood loss in the GI tract. She will be admitted to the hospital for further management. She will be treated with PPI drip. Gastroenterology Service has been consulted by emergency room physician for opinion and help with management. 2. Diarrhea: We will check stool cultures as well as stool Clostridium difficile toxin test, since she was recently treated with antibiotics. 3. Acute on chronic stage 3 kidney disease: We will provide gentle hydration and recheck creatinine. The patient has a history of chronic combined heart failure but does not appear to be in heart failure exacerbation at this time. 4. Diabetes mellitus type 2: We will start Accu-Cheks and insulin sliding scale. 5. Coronary artery disease: Appears to be stable. 6. Gout: Appears to be stable. Many thanks for allowing me to participate in your patient's care. Please feel free to contact me with any questions or concerns. LEVEL OF RISK: Moderate. LEVEL OF COMPLEXITY: Moderate. Job ID: [id number]
[2019-02-28] MEDS ORDERED: [UNRECOGNIZED DRUG - REMARK] IVPB PRN (04:00)
--- NOTE | 2019-02-28 04:04 | PDOC.EVN ---
Event Note - Event Note Event Note: Following admission, pt was hypothermic and bradycardiac. Arely hugger started. Blood cultures to be sent and urine studies as well. Start empiric antibiotics for sepsis (IV vancomycin and Zosyn).
[2019-02-28] MEDS ORDERED: Vancomycin HCl 1.5 GM in Sodium Chloride 0.9% 250 ML 300 ML IVPB SCH (04:30)
[2019-02-28 04:33] LABS: Base Excess (BEa) -0.6 mEq/L (-2.0 to +3.0); CO2 Tension 39.4 mmHg (35.0-45.0); Calcium, Ionized 1.16 mmol/L (1.12-1.30); Carboxyhemoglobin (COHb) 1.7 gm% (0.0-3.0); Hemoglobin (Hb) 7.7 g/dL (12.0-16.0); O2 Tension (PaO2) 111.7 mmHg (> 70.0); Potassium - ABG Lab 3.28 mmol/L (3.70-5.30)
[2019-02-28] MEDS: Piperacillin/Tazobactam 2.25 GM in Sodium Chloride 0.9% 100 ML IVPB SCH ×3 (04:33→18:42)
[2019-02-28 04:34] LABS: Puncture Site LRA
[2019-02-28 04:41] LABS: #Eosinphils 0.2 thou/uL (0.0-0.7); #Lymphocytes 0.5 thou/uL (1.20-3.40); #Monocytes 0.5 thou/uL (0.11-0.59); #Neutrophils 2.6 thou/uL (1.40-6.50); %Basophils 0.4 % (0.0-1.0); %Eosinophils 6.3 % (0.0-10.0); %Monocytes 13.9 % (0.0-10.0); %Neutrophils 67.4 % (42.0-75.0); Hemoglobin 7.3 g/dL (12.0-16.0); Mean Corpuscular HGB CONC 31.2 g/dL (32.0-36.0); Mean Corpuscular Hemoglobin 26.9 pg (27.0-31.0); Mean Corpuscular Volume 86.3 fL (78.0-98.0); Mean Platelet Volume 9.3 fL (7.4-10.4); Platelet Count 143 thou/uL (130-400); RBC Distribution Width 16.2 % (11.5-14.5); Red Blood Cell (RBC) Count 2.71 mill/uL (4.20-5.40); White Blood Cell (WBC) Count 3.8 thou/uL (4.8-10.8)
[2019-02-28 04:45] LABS: Anion Gap 11 mmol/L (10-20); BUN (Urea Nitrogen) 53 mg/dL (9.8-20.1); Calc. Creatinine Clearance 37 mL/min (70-130); Calcium 8.2 mg/dL (7.8-10.44); Carbon Dioxide 24 mmol/L (23-31); Chloride 108 mmol/L (98-107); Estimated GFR-MDRD 22; Glucose 66 mg/dL (80-115); Potassium 3.3 mmol/L (3.5-5.1); Sodium 140 mmol/L (136-145)
[2019-02-28] MEDS: Dextrose 5 % And 0.9 % NaCl 1,000 ML IV SCH (04:48)
--- NOTE | 2019-02-28 04:48 | PDOC.EVN ---
Event Note - Event Note Event Note: Pt evaluated. Lethargic, sleeping off after briefly waking up. S1, S2, reg. Lungs CTA. ABGs reviewed. Blood work and antibiotics pending. Pt has episodes of hypoglycemia, most likely due to 20 units of regular insulin she received. Pt also has acute on chronic renal failure. Will transfer pt to [facility] for close monitoring on telemetry and to follow accuchecks.
[2019-02-28 04:50] LABS: Lactic Acid 0.9 mmol/L (0.5-2.2)
[2019-02-28 04:51] LABS: Troponin I 0.019 ng/mL (< 0.028)
[2019-02-28 05:01] LABS: Bilirubin Negative (Negative); Blood, Urine Negative (Negative); Clarity CLEAR (Clear); Glucose, Urine (Dipstick) Negative (Negative); Leukocyte Small (Negative); Nitrite Negative (Negative); Protein, Urine (Dipstick) Trace mg/dL (Neg-Trace); Urobilinogen 0.2 mg/dL (0.2-1.0)
[2019-02-28 05:02] LABS: Bacteria/HPF None Seen HPF (None Seen); Hyaline Casts/LPF 4-6 HYALINE CAST LPF (0-3 Hyaline); Pathc Cast-AUWi Flag 0.54 (0-2.49); RBC/HPF 0-3 HPF (0-3); Squamous Epithelial 0-3 HPF (0-3)
--- NOTE | 2019-02-28 10:35 | CON ---
DATE OF CONSULTATION: 02/28/2019 The following encompassed 50 minutes time, of that time, greater than 50% was spent with the patient and/or the patient's unit in the hospital. HISTORY OF PRESENT ILLNESS: The patient is a 68-year-old female, who was admitted to the Hospitalist Service yesterday with intractable diarrhea. Apparently, she developed hypoglycemia last night after receiving some insulin. She was transferred down here for closer monitoring. She now feels back to her baseline. PAST MEDICAL HISTORY: 1. Type 2 diabetes mellitus, requiring insulin. 2. Hypertension. 3. Gastroesophageal reflux. 4. Blindness. 5. Congestive heart failure with systolic heart dysfunction. 6. Chronic kidney disease, stage 3. 7. Peripheral neuropathy. 8. Coronary artery disease. 9. Myocardial infarction. 10. Gout. PAST SURGICAL HISTORY: 1. PCI with stent. 2. Bilateral cataract surgery. 3. Retina repair. 4. section x2. 5. Tonsillectomy. FAMILY MEDICAL HISTORY: Unremarkable. SOCIAL HISTORY: Nonsmoker. Does not consume alcohol. She lives at home with daughter and son-in-law. ALLERGIES: SULFA AND ALLOPURINOL. MEDICATIONS: Prior to admission; 1. Gabapentin. 2. Plavix. 3. Lisinopril. 4. Pantoprazole. 5. Colchicine. 6. Lasix. 7. Aspirin. 8. Coreg. 9. Simvastatin. 10. Duloxetine. REVIEW OF SYSTEMS: Twelve-point review of systems is otherwise negative. PHYSICAL EXAMINATION: VITAL SIGNS: Temperature 96.4, pulse 57, respirations 19, and O2 saturation 100% on room air. GENERAL: She is awake, alert, in no distress. HEENT: Has a blank stare on her face because she is blind. Oropharynx is clear. NECK: No adenopathy or JVD. CHEST: Clear to auscultation without wheezing or rhonchi. CARDIAC: S1 and S2 regular without murmur. ABDOMEN: Soft, nontender, and nondistended. EXTREMITIES: No clubbing, cyanosis, or edema. LABORATORY DATA: White blood cell count 3.8, hematocrit 23.3, hemoglobin 7.3, and platelet count 143. PH of 7.40, pCO2 of 39, and pO2 of 111. Sodium 140, potassium 3.3, chloride 108, CO2 of 24, BUN 53, creatinine 2.2, and glucose 117. ASSESSMENT: 1. Transient hypoglycemia, which is now resolved. 2. Hypovolemia secondary to gastrointestinal bleeding. RECOMMENDATIONS: 1. Recommend GI consultation. 2. Can transfer back out to the floor at any time. 3. We would just treat with sliding-scale insulin until she is able to eat again. 4. We would consider discontinuing antibiotics as she does not appear septic. Job ID: [id number]
[2019-02-28 12:10] LABS: Hemoglobin 9.7 g/dL (12.0-16.0)
[2019-02-28] MEDS: Pantoprazole 80 MG in Sodium Chloride 0.9% 100 ML IVPB SCH ×2 (12:39→22:33)
[2019-02-28] MEDS ORDERED: GoLYTELY 4,000 ml Bottle PO SCH (22:30)
[2019-03-01] MEDS: Dextrose 5 % And 0.9 % NaCl 1,000 ML IV SCH (01:01)
--- NOTE | 2019-03-01 02:58 | CON ---
DATE OF CONSULTATION: 02/28/2019 REASON FOR CONSULTATION: Symptomatic anemia, diarrhea. CONSULTING PHYSICIAN: Dr. Juan Colbert. HISTORY OF PRESENT ILLNESS: The patient is a 68-year-old female with past medical history of diabetes, hypertension, GERD, congestive heart failure, anemia of chronic disease, pulmonary edema, chronic kidney disease stage 3, neuropathy, coronary artery disease status post [place], gout, depression, and legal blindness, presenting with complaints of weakness. She states that she was in her usual state of health until approximately 1 week ago when she began having increased frequency of diarrhea having approximately 8 to 10 liquid bowel movements per day. This was associated with increased weakness, decreased appetite and increased flatulence as well as increased abdominal bloating, weight gain, and swelling of the upper and lower extremities. She also notes that prior to the onset of her diarrhea, she had attempted using "concoction" composed primarily of cinnamon and cayenne pepper as a weight loss measure with the significant diarrhea occurring afterwards. However, with worsening weakness over this last week, it prompted her to seek healthcare admission in [place], [place] where she was noted to have a significant decrease in her H and H, prompting transfer to [facility] for further evaluation. On presentation to the hospital, she denies any history of overt GI bleeding including hematemesis, melena, or hematochezia. Also during this admission, she denies any further episodes of diarrhea. However, she does endorse dysphagia occurring with both solids and pills occurring at the level of the thyroid cartilage, but is able to swallow liquids without any difficulty. Of note, while in the [place] [facility], she was noted to be significantly anemic and transfused approximately 1 unit of PRBCs. REVIEW OF SYSTEMS: A 10-category review of systems was obtained with all responses negative except for the pertinent positives as listed in HPI. PAST MEDICAL HISTORY: As per HPI. PAST SURGICAL HISTORY: PCI with stent placement, bilateral cataract surgery with retina repair, x2 and tonsillectomy. FAMILY HISTORY: Denies any GI malignancies. SOCIAL HISTORY: Denies any tobacco, alcohol, or illicit drug use. OUTPATIENT MEDICATIONS: Reviewed. ALLERGIES: SULFA AND ALLOPURINOL. PHYSICAL EXAMINATION: VITAL SIGNS: Temperature 98.3, pulse 68, blood pressure 120/80, respiratory rate 21, saturating 96% on room air. GENERAL: The patient was lying in bed, in no acute distress. Alert and oriented x4. HEENT: Normocephalic, atraumatic. NECK: Supple with no JVD or scleral icterus noted. CARDIOVASCULAR: Regular rate and rhythm with no discernible murmurs, gallops, or rubs. RESPIRATORY: Clear to auscultation bilaterally with no discernible wheezes or rales. ABDOMEN: Normoactive bowel sounds. Soft, nontender, nondistended. EXTREMITIES: No cyanosis, clubbing, or edema. LABORATORY DATA: CBC with a white blood cell count of 3.8, hemoglobin 7.3, hematocrit 23.3, platelets 143. Chemistry with a sodium of 140, potassium 3.3, chloride 108, CO2 of 24, BUN 53, creatinine 2.2, glucose 66. IMAGING DATA: No current GI imaging is available for review. ASSESSMENT AND PLAN: The patient is a 68-year-old female with past medical history of diabetes, hypertension, gastroesophageal reflux disease, congestive heart failure, pulmonary edema, chronic kidney disease, stage 3, neuropathy, coronary artery disease status post myocardial infarction, gout, legal blindness, depression, and anemia of chronic disease presenting with symptomatic anemia. Symptomatic anemia. The patient is presenting with a recent history of increased diarrhea over the last week, characterized as having 8-10 bowel movements per day. However, over the same time period, she was endorsing increased weakness, decreased appetite and swelling of the upper lower extremities. On admission, she was noted to have a significant decrease in her hemoglobin and hematocrit concerning for possible gastrointestinal blood loss. She subsequently underwent a fecal occult blood testing in [place], which was positive (although this was just a colorectal cancer screening test and does not indicate active gastrointestinal bleeding). She currently denies any symptoms consistent with overt gastrointestinal bleeding and no iron indices were drawn prior to the installation of packed red blood cells making any further evaluation of her anemia unfeasible. She has never had a colonoscopy before, but she denies any family history of colorectal cancer, which places her at average risk for colorectal cancer itself. At this time, she is presenting with possible symptomatic anemia, but whether or not this is due to an iron-deficiency anemia, due to chronic gastrointestinal blood loss or anemia of chronic disease is unclear at this time. RECOMMENDATIONS: 1. We would continue to trend H and H and transfuse as necessary to maintain an H and H of 7/. 2. Continue to monitor clinically for signs of active GI bleeding. 3. Given the uncertainty of possible GI bleeding, we will plan for both EGD and colonoscopy tomorrow for further evaluation. If both of these studies are negative, we would then strongly consider a diagnosis of anemia of chronic disease. 4. Continue to monitor patient for any additional diarrhea and/or blood loss. 5. We will continue to follow. Please call with any questions. Job ID: [id number]
[2019-03-01 08:38] LABS: #Basophils 0.1 thou/uL (0.0-0.2); #Eosinphils 0.2 thou/uL (0.0-0.7); #Lymphocytes 0.6 thou/uL (1.20-3.40); #Monocytes 0.6 thou/uL (0.11-0.59); #Neutrophils 5.3 thou/uL (1.40-6.50); %Basophils 0.8 % (0.0-1.0); %Eosinophils 3.1 % (0.0-10.0); %Lymphocytes 8.5 % (21.0-51.0); %Monocytes 9.4 % (0.0-10.0); %Neutrophils 78.3 % (42.0-75.0); Mean Corpuscular HGB CONC 31.5 g/dL (32.0-36.0); Mean Corpuscular Hemoglobin 27.2 pg (27.0-31.0); Mean Corpuscular Volume 86.3 fL (78.0-98.0); Mean Platelet Volume 9.3 fL (7.4-10.4); Platelet Count 166 thou/uL (130-400); RBC Distribution Width 16.1 % (11.5-14.5); White Blood Cell (WBC) Count 6.8 thou/uL (4.8-10.8)
[2019-03-01 08:59] LABS: Anion Gap 11 mmol/L (10-20); BUN (Urea Nitrogen) 43 mg/dL (9.8-20.1); Calc. Creatinine Clearance 39 mL/min (70-130); Calcium 8.3 mg/dL (7.8-10.44); Carbon Dioxide 26 mmol/L (23-31); Chloride 110 mmol/L (98-107); Estimated GFR-MDRD 24; Glucose 88 mg/dL (80-115); Magnesium 1.9 mg/dL (1.6-2.6); Phosphorus 3.7 mg/dL (2.3-4.7); Potassium 3.7 mmol/L (3.5-5.1); Sodium 143 mmol/L (136-145)
[2019-03-01] MEDS ORDERED: PROPOFOL 200 MG/20 ML VIAL ONE (09:59)
[2019-03-01] MEDS ORDERED: Lidocaine 1% PF 5 ML VIAL ONE (09:59)
[2019-03-01] MEDS ORDERED: Ketamine 50 MG/ML (10ML VIAL) ONE (11:29)
[2019-03-01] MEDS ORDERED: PROPOFOL 20 ML ONE (11:29)
[2019-03-01] MEDS ORDERED: Promethazine HCl 25 MG/ML VIAL IM PRN (12:48)
[2019-03-01] MEDS ORDERED: Ondansetron HCl/PF 4 MG/2 ML Vial IVP PRN (12:48)
[2019-03-01] MEDS ORDERED: Promethazine HCl 25 MG/ML VIAL SLOW IVP PRN (12:48)
--- NOTE | 2019-03-01 13:41 | OP ---
DATE OF PROCEDURE: 03/01/2019 PROCEDURES PERFORMED: 1. Esophagogastroduodenoscopy with biopsy and polypectomy. 2. Colonoscopy with biopsy and polypectomy. INDICATIONS FOR PROCEDURE: Symptomatic anemia with possible iron deficiency anemia, diarrhea. DESCRIPTION OF PROCEDURE: After the risks and benefits of the procedure were explained to the patient including risks of bleeding, infection, perforation, reactions to anesthesia, aspiration, and/or pain, informed consent was obtained. The patient was then taken to the endoscopy suite, where deep sedation was administered via propofol and anesthesia support. Once adequate sedation was achieved, the standard gastroscope was introduced into the mouth with intubation of the esophagus, stomach, and the proximal small intestines. Adequate visualization of the mucosa was achieved. Upon completion of this portion of the procedure, all equipment was removed from the patient. The bed was then rotated 180 degrees in anticipation for the colonoscopy. A digital rectal examination was then performed followed by introduction of the standard colonoscope, which was then advanced to the proximal descending colon with further progression inhibited by a large colonic near obstructive mass to prevent it any further progress. The quality of the prep was excellent. The patient tolerated the procedure well with no immediate perioperative complications. Upon completion of the procedure, all equipment was removed from the patient and she was transferred to PACU in satisfactory condition. EGD FINDINGS: Esophagus: Normal-appearing mucosa was seen in the proximal, mid, and distal esophagus. There was no evidence of erosions, ulcerations, mass, lesions, or active/recent bleeding. Stomach: Normal-appearing mucosa was seen in the gastric cardia, fundus, and body. A 1 cm [id number] erythematous polyp was seen in the junction between the gastric body and antrum. This was completely removed with snare cautery polypectomy and placed in a specimen jar for evaluation. Otherwise, normal-appearing mucosa was then seen in the antrum and incisura. Duodenum: Normal-appearing mucosa was seen in both the duodenal bulb and second portion of the duodenum. There was no evidence of erosions, ulcerations, mass, lesions, or active/recent bleeding. Multiple biopsies were taken from both the duodenal bulb and second portion of duodenum for possible celiac sprue. Impression; 1. A 1 cm erythematous gastric polyp seen at the body/antral junction, status post snare cautery polypectomy. 2. Otherwise normal upper endoscopy. Colonoscopy findings: Digital rectal exam, normal-appearing skin was seen on external examination, although there was some possible poor sphincter tone. Colon findings: The colonoscope was advanced to approximately 60 cm past the anal verge, at which point, a large descending colon mass was encountered. The mass itself was near obstructive occupying approximately 90% to 95% of the colonic lumen, but the proximal colon could be visualized through the center of this lesion. However, it could not be traversed with the colonoscope. Multiple biopsies were then taken from this mass and placed in the specimen jar for evaluation. Using an injector needle, three submucosal tattoos were then placed at the distal end of this mass for further reference. A 5 mm polyp was also encountered in the distal descending colon and completely removed with snare cautery polypectomy. It was retrieved and placed in a specimen jar for evaluation. Multiple small and medium-sized diverticula were seen throughout the sigmoid colon, but did not have any associated colonic narrowing or strictures associated with diverticular disease. An 8 mm to 9 mm semi-pedunculated polyp was also encountered in the rectum and completely removed with snare cautery polypectomy. It was retrieved and placed in a specimen jar for evaluation. Normal-appearing mucosa was seen on rectal retroflexion. Impression; 1. A large near obstructive colonic mass was encountered in the descending colon concerning for malignant process, status post biopsies and tattoo placement. 2. A 5 mm descending colon polyp, status post snare cautery polypectomy. 3. An 8 mm to 9 mm semi-pedunculated rectal polyp, status post snare cautery polypectomy. 4. Moderate sigmoid diverticulosis. RECOMMENDATIONS: 1. We will follow up on the biopsy results and polypectomy results for possible adenomatous or malignant processes. 2. Given the higher likelihood of malignant process in the descending colon, I would recommend staging imaging with CT of both the abdomen, pelvis, and chest. 3. We would recommend General Surgery consultation for evaluation of this patient for non-emergent resection based on pathology and staging imaging. 4. We will continue the patient on PPI, but it can be transferred to pantoprazole 40 mg daily by mouth. 5. We will continue to trend H and H and transfuse as necessary to maintain an H and H of 7/21. 6. We will continue to monitor clinically for signs of active GI bleeding. 7. We will continue to follow. Please call with any questions. Job ID: [id number]
--- NOTE | 2019-03-01 16:02 | CT ---
CT CHEST WITHOUT IV CONTRAST CT ABDOMEN WITHOUT IV CONTRAST CT PELVIS WITHOUT IV CONTRAST: HISTORY: Descending colon mass on colonoscopy. COMPARISON: CT abdomen and pelvis without contrast of 02/27/2019. DISCLAIMER: Absence of IV contrast reduces the sensitivity of the exam, particularly for evaluation of mediastina l, hilar, and vascular structures and solid organs. The possibility of metastatic disease cannot be excluded on the study. FINDINGS: There are small bilateral pleural effusions. No lung nodules or masses are seen. The tracheobronchi al tree appears patent. There is edema in the subcutaneous fat consistent with anasarca. No free air is seen in the abdomen or pelvis. There is a small amount of free fluid in the abdomen a nd pelvis consistent with mild ascites. Calcified gallstones are again seen. No calculi are noted i n the kidneys, ureters, or the urinary bladder. No hydroureteral nephrosis is noted on either side. A Rajan catheter is present in the urinary bladder. Air is also seen in the urinary bladder. There is sigmoid diverticulosis. Vascular calcifications are present without evidence of aneurysmal dilatation of the thoracoabdominal aorta. There are degenerative changes in the thoracolumbar spine. No osteolytic or osteoblastic le sions are noted. A normal-appearing appendix is present. IMPRESSION: 1. Exam limited by absence of IV contrast. 2. Small bilateral pleural effusions. 3. Cholelithiasis. 4. Sigmoid diverticulosis. 5. Anasarca. 6. Mild ascites. POS: [facility]
[2019-03-01] MEDS: Cyanocobalamin (Vitamin B-12) 1,000 MCG TAB PO SCH (17:45)
[2019-03-01] MEDS: Folic Acid 1 MG TAB PO SCH (17:45)
[2019-03-01] MEDS: Multivit, Therapeutic 1 TAB PO SCH (17:45)
[2019-03-01] MEDS ORDERED: Dextrose 5 % And 0.9 % NaCl 1,000 ML IV SCH (18:59)
--- NOTE | 2019-03-01 21:48 | PDOC.PN ---
- Subjective Encounter Start Date: 03/01/19 Encounter Start Time: 08:15 Patient seen and examined for Anemia. Feels better. No new Melena. No CP/SOB/ Palpitations. No new complaints. No overnight events - Objective Resuscitation Status - Order Detail: 02/28/19 03:00 Resuscitation Status Routine Resuscitation Status: FULL: Full Resuscitation Discussed with: patient MAR Reviewed: Yes Vital Signs & Weight: Vital Signs (12 hours) Temp Pulse Ox 03/01/19 19:32 92 L 03/01/19 19:00 97.8 F 03/01/19 14:52 97.3 F L Weight Admit Weight 218 lb 2 oz Weight 216 lb 5.506 oz Most Recent Monitor Data Heart Rate from ECG 78 NIBP 179/81 NIBP BP-Mean 113 Respiration from ECG 34 SpO2 92 I&O: 02/28/19 03/01/19 03/02/19 06:59 06:59 06:59 Intake Total 260 4925 1500 Output Total 225 3750 1100 Balance 35 1175 400 Result Diagrams: 03/02/19 04:02 03/02/19 04:02 Additional Labs: Accuchecks 03/01/19 03/01/19 03/01/19 19:59 16:16 08:06 POC Glucose 299 H 178 H 98 03/01/19 03/01/19 03/01/19 06:20 04:27 00:20 POC Glucose 89 77 90 EKG Reviewed by me: Yes (Tele SR) Phys Exam - Physical Examination Constitutional: NAD Neck: no JVD Respiratory: no wheezing, no rales, no rhonchi, clear to auscultation bilateral Cardiovascular: RRR, no rub no heaves/pulsations Gastrointestinal: soft, non-tender, no distention, positive bowel sounds Musculoskeletal: no edema, pulses present Neurological: non-focal, normal sensation, moves all 4 limbs Psychiatric: normal affect, A&O x 3 Skin: no rash Dx/Plan - Plan DVT proph w/SCDs IMPRESSION: Symtomatic Anemia ?GI bleed Acute GI blood loss Anemia s/p 1 unit PRBC Diarrhea - r/o C diff SHAMEKA on CKD 3 HTN GERD CAD s/p stent - on ASA/Plavix Obesity BMI 37.4 Hypokalemia DM2 Gout PLAN: EGD/Colonscopy today Monitor HH DC Atbx Cont IVF with Dextrose for now AM labs DC Atbx Await stool w/u Cont Protonix drip Review of Systems - Medications/Allergies Allergies/Adverse Reactions: Allergies Allergy/AdvReac Type Severity Reaction Status Date / Time allopurinol Allergy Severe BLISTERS Verified 02/28/19 02:37 ON HANDS Sulfa (Sulfonamide Allergy Intermediate ITCHING Verified 02/28/19 02:37 Antibiotics) Medications: Current Medications Acetaminophen (Tylenol) 650 mg PO Q4H PRN PRN Reason: Headache/Fever/Mild Pain (1-3) Cyanocobalamin (Vitamin B-12) 1,000 mcg PO DAILY [facility] Last Admin: 03/01/19 17:45 Dose: Not Given Dextrose/Water (Dextrose 50%) 50 ml SLOW IVP PRN PRN PRN Reason: Hypoglycemia Last Admin: 02/28/19 04:48 Dose: 50 ml Folic Acid (Folvite) 1 mg PO DAILY [facility] Last Admin: 03/01/19 17:45 Dose: Not Given Glucagon (Glucagon) 1 mg IM PRN PRN PRN Reason: Hypoglycemia Pantoprazole Sodium 80 mg/ (Sodium Chloride) 100 mls @ 10 mls/hr IVPB INF [facility] Last Admin: 02/28/19 22:33 Dose: 100 mls Dextrose/Water (D5w) 1,000 mls @ 0 mls/hr IV .Q0M PRN PRN Reason: Hypoglycemia Dextrose/Sodium Chloride (D5 0.9% Ns) 1,000 mls @ 100 mls/hr IV .Q10H PASCUAL Insulin Human Lispro (Humalog) 0 units SC .MILD SLIDING SCALE PRN PRN Reason: Mild Correctional Scale Multivitamins (Theragran) 1 tab PO DAILY [facility] Last Admin: 03/01/19 17:45 Dose: Not Given Sodium Chloride (Flush - Normal Saline) 10 ml IVF Q12HR PASCUAL Sodium Chloride (Flush - Normal Saline) 10 ml IVF PRN PRN PRN Reason: Saline Flush
[2019-03-02] MEDS: HumaLOG 300 UNITS/3 ML VIAL SC PRN ×4 (00:07→16:59)
[2019-03-02 04:14] LABS: #Eosinphils 0.1 thou/uL (0.0-0.7); #Lymphocytes 0.7 thou/uL (1.20-3.40); #Monocytes 0.7 thou/uL (0.11-0.59); #Neutrophils 3.4 thou/uL (1.40-6.50); %Basophils 0.2 % (0.0-1.0); %Eosinophils 2.1 % (0.0-10.0); %Lymphocytes 14.5 % (21.0-51.0); %Monocytes 13.7 % (0.0-10.0); %Neutrophils 69.6 % (42.0-75.0); Hemoglobin 8.8 g/dL (12.0-16.0); Mean Corpuscular Hemoglobin 27.1 pg (27.0-31.0); Mean Corpuscular Volume 87.6 fL (78.0-98.0); Platelet Count 137 thou/uL (130-400); RBC Distribution Width 16.5 % (11.5-14.5); Red Blood Cell (RBC) Count 3.22 mill/uL (4.20-5.40); White Blood Cell (WBC) Count 4.9 thou/uL (4.8-10.8)
[2019-03-02 04:42] LABS: ALT (SGPT) 17 U/L (8-55); AST (SGOT) 31 U/L (5-34); Albumin 2.9 g/dL (3.4-4.8); Alkaline Phosphatase 78 U/L (40-150); Anion Gap 13 mmol/L (10-20); BUN (Urea Nitrogen) 39 mg/dL (9.8-20.1); Bilirubin, Total 0.6 mg/dL (0.2-1.2); Calc. Creatinine Clearance 38 mL/min (70-130); Calcium 8.1 mg/dL (7.8-10.44); Carbon Dioxide 22 mmol/L (23-31); Chloride 111 mmol/L (98-107); Estimated GFR-MDRD 23; Globulin 2.6 g/dL (2.4-3.5); Glucose 317 mg/dL (80-115); Magnesium 1.9 mg/dL (1.6-2.6); Phosphorus 3.4 mg/dL (2.3-4.7); Potassium 3.8 mmol/L (3.5-5.1); Protein, Total 5.5 g/dL (6.0-8.3); Sodium 142 mmol/L (136-145)
[2019-03-02] MEDS ORDERED: Vancomycin HCl 1 GM in Premix Bag 1 BAG IVPB SCH (05:00)
[2019-03-02] MEDS: Folic Acid 1 MG TAB PO SCH (08:32)
[2019-03-02] MEDS: Cyanocobalamin (Vitamin B-12) 1,000 MCG TAB PO SCH (08:32)
[2019-03-02] MEDS: Multivit, Therapeutic 1 TAB PO SCH (08:32)
[2019-03-02] MEDS ORDERED: Oxymetazoline HCl 0.05% ( 15 ML ) NASAL PRN (08:43)
--- NOTE | 2019-03-02 09:08 | CON ---
DATE OF CONSULTATION: REASON FOR CONSULT: Near obstructing descending colon mass. HISTORY OF PRESENT ILLNESS: Ms. Bruce is a 68-year-old woman, who presented to the hospital with a several week history of worsening weakness and decreased energy. She was found to be significantly anemic. She also complained of diarrhea over about the same period of time. The patient has not noticed any stool in her blood or any black color to the stool, but has recently been feeling bloated and like her abdomen was more distended. She was admitted to the Medicine Service and Gastroenterology was consulted. She tolerated a bowel prep, has had decreased abdominal distention. Yesterday, she underwent a colonoscopy by Dr. Boston, which found a near obstructing descending colon mass. She has multiple biopsies and tattoos on the mass that was unable to traverse it. The patient denies any abdominal pain, nausea, or vomiting. She has not had any fevers or chills. She has had about 80 pounds weight loss over the past 4 years, but states that most of this was intentional. However, in the past month or so, she has some unintentional weight loss, which she attributed to the diarrhea and the recent bout of bronchitis. PAST MEDICAL HISTORY: Significant for diabetes; hypertension; GERD; heart failure; anemia; pulmonary edema; stage 3 to 4 chronic kidney disease followed by Dr. Spring; neuropathy; coronary artery disease, status post VA; gout; legal blindness; and depression. PAST SURGICAL HISTORY: Coronary stents, cataract surgery and retinal repair, multiple laser surgeries on her eyes, , and tonsillectomy. FAMILY HISTORY: Noncontributory. She does not know of anybody with GI malignancy. REVIEW OF SYSTEMS: Ten system review of systems is negative except per HPI. The patient states that she has had anemia of some degree for several years but had not previously undergone upper or lower endoscopy. SOCIAL HISTORY: The patient does not smoke, drink, or use illicit drugs. 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 OUTPATIENT MEDICATIONS: Include; 1. Gabapentin. 2. Plavix. 3. Lisinopril. 4. Pantoprazole. 5. Colchicine. 6. Lasix. 7. Aspirin. 8. Coreg. 9. Simvastatin. 10. Duloxetine. ALLERGIES: SHE HAS ADVERSE DRUG REACTIONS TO ALLOPURINOL AND SULFA. PHYSICAL EXAMINATION: VITAL SIGNS: Temperature 99.5, 100% saturated on 2 L nasal cannula, heart rate 67, and blood pressure 120/54. GENERAL: Reveals a chronically ill-appearing woman, in no acute distress. She is not flushed or toxic in appearance. She is not jaundiced or icteric. HEENT: Unremarkable. NECK: Supple without lymphadenopathy or thyroid nodules. HEART: Regular in its rate and rhythm without murmurs, rubs, or gallops. LUNGS: Clear to auscultation bilaterally. ABDOMEN: Soft, nondistended, and nontender. No palpable masses or hernias. EXTREMITIES: Warm and well perfused. I cannot appreciate popliteal pulses, but no pedal pulses, but her feet are warm. Her legs were both quite swollen and her right leg is tender to palpation, but without erythema or induration. She states that it has been this way for some time. NEURO: No focal deficits. PSYCHIATRIC: Alert, oriented, and appropriate. DIAGNOSTIC DATA: White count is normal, hemoglobin on admission was 7.3 with hematocrit of 23.3, and platelets of 143. BUN and creatinine are 39 and 2.14. Glucose has ranged from 178 to 330, albumin 2.9. Electrolytes are unremarkable. Noncontrast CT of the chest, abdomen, and pelvis showed small bilateral pleural effusions, but no lung or liver masses. Small amount of free fluid in the abdomen and pelvis consistent with mild ascites and calcified gallstones were seen. Sigmoid diverticulosis was noted. No evidence of obstruction and no obvious mass in the colon. She was noted to have anasarca. ASSESSMENT: Near obstructing descending sigmoid mass, which had a malignant appearance on endoscopy. Pathology is still pending. The patient has anasarca and heart failure, but will likely require urgent surgery during this hospitalization regardless. She did tolerate a bowel prep and is now on a clear liquid diet. I have asked Cardiology to see her as an inpatient. Her primary law firm consultant is Dr. Childs and she states that it has been over years since she had an echocardiogram. Her last echocardiogram showed an ejection fraction of 45% to 50% with grade 2/3 diastolic dysfunction. She states that she had a cardiac stent about a year ago and has not had any known problems since then except for the heart failure and fluid overload. She understands that she will likely require segmental resection for the obstruction and that because of her underlying medical illnesses, she is at somewhat increased risk for the surgery. Primary reanastomosis is appropriate since she is able to tolerate a bowel prep, but there is a risk of anastomotic leak, which could require an ostomy. Other risks include, but are not limited to, bleeding, infection, risks of anesthesia, damage to nearby structures including bowel, blood vessels, and ureter. Surgery can likely be assisted in a laparoscopic hand assist fashion. I will await Cardiology input before scheduling surgery. As I previously stated, this will likely need to be done during this hospitalization because of the near obstructing nature of the lesion. There is no evidence of hepatic or pulmonary metastasis on her noncontrast CT, but this is somewhat limited by the lack of IV contrast. I have ordered a CEA for the next lab draw, but do not expect this to be elevated. Job ID: [id number]
--- NOTE | 2019-03-02 09:15 | ULT ---
BILATERAL LOWER EXTREMITY VENOUS DOPPLER ULTRASOUND: HISTORY: Bilateral lower extremity edema, right leg tenderness. TECHNIQUE: Stevens scale ultrasound with color flow and spectral Doppler imaging of the deep venous systems of the lower extremities was performed bilaterally. FINDINGS: There is good flow, compression, and augmentation noted in the common femoral, femoral, deep femoral, popliteal, posterior tibial, and greater saphenous veins on either side. IMPRESSION: No evidence of deep vein thrombosis in either lower extremity. POS: ODILIA
[2019-03-02] MEDS: Insulin Glargine 10 UNITS in Pre-Filled Syringe 1 EACH SC SCH (09:55)
[2019-03-02] MEDS: Sodium Chloride 0.65% Nasal 44 ML BOT EA NARE SCH ×3 (09:55→22:48)
--- NOTE | 2019-03-02 12:07 | CON ---
DATE OF CONSULTATION: REASON FOR CONSULTATION: Preop clearance. PRIMARY EXTRACTOR OPERATOR: Dr. Lenny Childs. HISTORY OF PRESENT ILLNESS: Ms. Bruce is a 68-year-old woman, who recently presented with diarrhea. She denied having any hematochezia or melena. She was found to be profoundly anemic with a hemoglobin of 7. From a CV standpoint, she does have a history of CAD, status post stent placement with last stent placed in April of 2018. During my visit, she states she has felt much better since her stent placement. No chest pain, pressure, shortness of breath, dizziness, lightheadedness, or other associated symptoms. PAST MEDICAL HISTORY: Diabetes mellitus, hypertension, acid reflux, systolic/diastolic heart failure, anemia, pulmonary edema, chronic kidney disease, previous ME, gout, depression, legally blind, tonsillectomy, retinal repair. SOCIAL HISTORY: No current tobacco or alcohol use. ALLERGIES: SULFA. HOME MEDICATIONS: Include; 1. Gabapentin. 2. Plavix. 3. Lisinopril. 4. Pantoprazole. 5. Colchicine. 6. Lasix. 7. Aspirin. 8. Coreg. 9. Zocor. 10. Duloxetine. REVIEW OF SYSTEMS: A 10-point review of systems is reviewed and as above, otherwise negative. PHYSICAL EXAMINATION: GENERAL: Patient is a pleasant female, who is in no acute distress. The patient appears their stated age. VITAL SIGNS: Blood pressure 163/89, pulse 79, temperature afebrile. NEUROLOGIC: The patient is alert and oriented x3 with no focal neurologic deficits. HEENT: Sclerae without icterus. Mouth has moist mucous membranes with normal pallor. NECK: No JVD. Carotid upstroke brisk. No bruits bilaterally. LUNGS: Clear to auscultation with unlabored respirations. BACK: No scoliosis or kyphosis. CARDIAC: Regular rate and rhythm with normal S1 and S2. No S3 or S4 noted. No significant rubs, murmurs, thrills, or gallops noted throughout the precordium. PMI is not displaced. There is no parasternal heave. ABDOMEN: Soft, nontender, nondistended. No peritoneal signs present. No hepatosplenomegaly. No abnormal striae. EXTREMITIES: Significant hyperpigmentation of the lower extremities bilaterally with 2+ pitting edema. SKIN: No gross abnormalities. DIAGNOSTIC DATA: Previous echo dated 01/02/2018 with LVEF 45% to 50% and moderate MR present and mild aortic stenosis. IMPRESSION: 1. Preop clearance. 2. Coronary artery disease. 3. Status post stent placement. RECOMMENDATIONS: Given likely recent bleeding with anemia and need for colectomy, we would recommend stopping Plavix. She is greater than 6 months out from her stent placement. The stent was placed for chronic stable angina and not for acute myocardial infarction. We will continue aspirin. She states her symptoms have improved. We will recommend repeat echo. Echo is unchanged from previous study 1 year ago, we then cleared for surgery. There are certainly risks for underlying complications, but the benefits outweigh the risk. Job ID: [id number]
--- NOTE | 2019-03-02 15:23 | PDOC.GSPN ---
Surgery Progress Note: Subj - Subjective Narrative: Patient feels okay. No bloating nausea or vomiting. No abdominal pain. Cardiology has been by and given approval for surgery although they prefer that she continue her aspirin and Plavix. This seems reasonable given her coated stent which is less than a year old, although does put her at slightly elevated risk for bleeding complications. We will go ahead and give her mag citrate and not absorbed antibiotics for mechanical bowel preparation today and put her on the OR schedule for tomorrow for laparoscopic left colectomy. She also has gallstones which are basically asymptomatic but we will consider cholecystectomy under the same anesthesia to prevent future problems related to these. Surgery Progress Note: Obj - Vital signs Vital signs: Vital Signs - Most Recent Temp Pulse Resp BP Pulse Ox 98.2 F 56 L 19 132/68 100 03/02/19 12:08 02/28/19 06:48 02/28/19 06:48 02/28/19 06:48 03/02/19 08:00 Surgery Progress Note: Results - Labs Result Diagrams: 03/02/19 04:02 03/02/19 04:02 Lab results: Laboratory Results - last 24 hr 03/02/19 03/02/19 03/02/19 04:02 04:02 04:02 WBC 4.9 RBC 3.22 L Hgb 8.8 L Hct 28.2 L MCV 87.6 MCH 27.1 MCHC 31.0 L RDW 16.5 H Plt Count 137 MPV 9.0 Neutrophils % 69.6 Lymphocytes % 14.5 L Monocytes % 13.7 H Eosinophils % 2.1 Basophils % 0.2 Neutrophils # 3.4 Lymphocytes # 0.7 L Monocytes # 0.7 H Eosinophils # 0.1 Basophils # 0.0 Sodium 142 Potassium 3.8 Chloride 111 H Carbon Dioxide 22 L Anion Gap 13 BUN 39 H Creatinine 2.14 H Estimated GFR (MDRD) 23 Glucose 317 H POC Glucose Calcium 8.1 Phosphorus 3.4 Magnesium 1.9 Total Bilirubin 0.6 AST 31 ALT 17 Alkaline Phosphatase 78 Serum Total Protein 5.5 L Albumin 2.9 L Globulin 2.6 Albumin/Globulin Ratio 1.1 L Carcinoembryonic Ag 2.88 03/02/19 03/02/19 03/02/19 04:04 08:23 11:54 WBC RBC Hgb Hct MCV MCH MCHC RDW Plt Count MPV Neutrophils % Lymphocytes % Monocytes % Eosinophils % Basophils % Neutrophils # Lymphocytes # Monocytes # Eosinophils # Basophils # Sodium Potassium Chloride Carbon Dioxide Anion Gap BUN Creatinine Estimated GFR (MDRD) Glucose POC Glucose 330 H 280 H 328 H Calcium Phosphorus Magnesium Total Bilirubin AST ALT Alkaline Phosphatase Serum Total Protein Albumin Globulin Albumin/Globulin Ratio Carcinoembryonic Ag
[2019-03-02] MEDS ORDERED: Magnesium Citrate 300 ML BOT PO SCH (15:30)
[2019-03-02] MEDS: Erythromycin Base 250 MG TAB PO SCH ×2 (17:08→22:48)
[2019-03-02] MEDS: Neomycin 500 mg Tablet PO SCH (17:08)
--- NOTE | 2019-03-02 20:01 | PDOC.PN ---
- Subjective Encounter Start Date: 03/02/19 Encounter Start Time: 10:45 Patient seen and examined for Anemia. No new episodes of GI bleeding. No fever/ chills. No new complaints. No overnight events - Objective Resuscitation Status - Order Detail: 02/28/19 03:00 Resuscitation Status Routine Resuscitation Status: FULL: Full Resuscitation Discussed with: patient LISA Reviewed: Yes Vital Signs & Weight: Vital Signs (12 hours) Temp Pulse Resp BP Pulse Ox 03/02/19 18:08 98.6 F 73 18 166/84 H 96 03/02/19 15:33 97.4 F L 03/02/19 12:08 98.2 F Weight Admit Weight 218 lb 2 oz Weight 219 lb 5.759 oz Most Recent Monitor Data Heart Rate from ECG 72 NIBP 160/80 NIBP BP-Mean 106 Respiration from ECG 19 SpO2 100 I&O: 03/01/19 03/02/19 03/03/19 06:59 06:59 06:59 Intake Total 4925 2600 800 Output Total 3750 1500 450 Balance 1175 1100 350 Result Diagrams: 03/02/19 04:02 03/02/19 04:02 Additional Labs: Accuchecks 03/02/19 03/02/19 03/02/19 16:03 11:54 08:23 POC Glucose 355 H 328 H 280 H 03/02/19 03/01/19 03/01/19 04:04 23:55 19:59 POC Glucose 330 H 394 H 299 H EKG Reviewed by me: Yes (Tele SR) Phys Exam - Physical Examination Constitutional: NAD Respiratory: no wheezing, no rhonchi Cardiovascular: RRR, no rub Gastrointestinal: soft, non-tender, positive bowel sounds Dx/Plan - Plan DVT proph w/SCDs IMPRESSION: Symtomatic Anemia due to GI bleed Colon mass (new diagnosis) Acute GI blood loss Anemia s/p 1 unit PRBC Diarrhea - C diff ruled out - prob antibiotic induced SHAMEKA on CKD 3 HTN GERD CAD s/p stent - on ASA/Plavix at home Obesity BMI 37.4 Hypokalemia DM2 Gout PLAN: Increase Lantus to 10 units BID today Resume ASA if ok with GI Changed Protonix drip to IV daily LE doppler neg for DVT Hemicolectomy in AM Review of Systems - Review of Systems Cardiovascular: negative: chest pain, palpitations, orthopnea, paroxysmal nocturnal dyspnea, edema, light headedness, other Gastrointestinal: negative: Nausea, Vomiting, Abdominal Pain, Diarrhea, Constipation, Melena, Hematochezia, Other - Medications/Allergies Allergies/Adverse Reactions: Allergies Allergy/AdvReac Type Severity Reaction Status Date / Time allopurinol Allergy Severe BLISTERS Verified 02/28/19 02:37 ON HANDS Sulfa (Sulfonamide Allergy Intermediate ITCHING Verified 02/28/19 02:37 Antibiotics) Medications: Current Medications Acetaminophen (Tylenol) 650 mg PO Q4H PRN PRN Reason: Headache/Fever/Mild Pain (1-3) Cyanocobalamin (Vitamin B-12) 1,000 mcg PO DAILY [facility] Last Admin: 03/02/19 08:32 Dose: 1,000 mcg Dextrose/Water (Dextrose 50%) 50 ml SLOW IVP PRN PRN PRN Reason: Hypoglycemia Last Admin: 02/28/19 04:48 Dose: 50 ml Erythromycin (Erythromycin Base) 250 mg PO Q6H [facility] Last Admin: 03/02/19 17:08 Dose: 250 mg Folic Acid (Folvite) 1 mg PO DAILY [facility] Last Admin: 03/02/19 08:32 Dose: 1 mg Glucagon (Glucagon) 1 mg IM PRN PRN PRN Reason: Hypoglycemia Pantoprazole Sodium 80 mg/ (Sodium Chloride) 100 mls @ 10 mls/hr IVPB INF [facility] Last Admin: 02/28/19 22:33 Dose: 100 mls Dextrose/Water (D5w) 1,000 mls @ 0 mls/hr IV .Q0M PRN PRN Reason: Hypoglycemia Insulin Glargine 10 units/ (Miscellaneous Medication) 0.1 mls @ 0 mls/hr SC QAM [facility] Last Admin: 03/02/19 09:55 Dose: 0.1 mls Insulin Glargine 10 units/ (Miscellaneous Medication) 0.1 mls @ 0 mls/hr SC HS [facility] Insulin Human Lispro (Humalog) 0 units SC .MILD SLIDING SCALE PRN PRN Reason: Mild Correctional Scale Last Admin: 03/02/19 16:59 Dose: 6 unit Multivitamins (Theragran) 1 tab PO DAILY [facility] Last Admin: 03/02/19 08:32 Dose: 1 tab Neomycin Sulfate (Neomycin Sulfate) 500 mg PO Q8H [facility] Last Admin: 03/02/19 17:08 Dose: 500 mg Oxymetazoline HCl (Oxymetazoline Hcl) 0 sprays NASAL Q4H PRN PRN Reason: Epistaxis Sodium Chloride (Flush - Normal Saline) 10 ml IVF Q12HR [facility] Last Admin: 03/02/19 08:33 Dose: 10 ml Sodium Chloride (Flush - Normal Saline) 10 ml IVF PRN PRN PRN Reason: Saline Flush Sodium Chloride ([place] Nasal [place] 0.65%) 0 ml EA NARE TID [facility] Last Admin: 03/02/19 14:11 Dose: 1 spr
[2019-03-02] MEDS ORDERED: Insulin Glargine 10 UNITS in Pre-Filled Syringe 1 EACH SC SCH (21:00)
[2019-03-03] MEDS: Neomycin 500 mg Tablet PO SCH ×2 (01:25→08:15)
[2019-03-03] MEDS ORDERED: cefOXitin Sodium/Dextrose,Iso 2 GM in Premix Bag 1 BAG IVPB SCH (01:45)
[2019-03-03] MEDS: Erythromycin Base 250 MG TAB PO SCH ×3 (05:23→22:21)
--- NOTE | 2019-03-03 06:43 | PDOC.CTH ---
Cardiology Progress Note - Subjective Doing well. No comaplints prior to surgeyr - Objective Vital Signs Temp Pulse Resp BP Pulse Ox 03/03/19 05:00 98.3 F 63 18 133/69 99 03/03/19 00:55 99.6 F 72 18 136/64 99 03/02/19 20:50 100 03/02/19 20:00 98.0 F 76 14 146/66 H 100 Admit Weight 218 lb 2 oz Weight 219 lb 5.759 oz 03/01/19 03/02/19 03/03/19 06:59 06:59 06:59 Intake Total 4925 2600 1260 Output Total 3750 1500 900 Balance 1175 1100 360 - Physical Examination General/Neuro: alert & oriented x3, NAD Neck: carotid US brisk, no JVD present Lungs: unlabored respirations Heart: PMI normal, RRR Abdomen: no HSM, NT/ND, soft Extremities: + femoral B - Labs Result Diagrams: 03/04/19 05:05 03/03/19 21:50 Troponin/CKMB Troponin I 0.019 ng/mL (< 0.028) 02/28/19 04:19 - Assessment/Plan CAD s/p stent to RCA Preop clearance dc plavix and continue ASA Given recent GI bleed, no benefit to continued DAPT after 6 months Ok to proceed with surgery No current symptoms of angina No further recommendations
[2019-03-03] MEDS: Cyanocobalamin (Vitamin B-12) 1,000 MCG TAB PO SCH (08:15)
[2019-03-03] MEDS: Aspirin 81 mg Enteric Coated Tablet PO SCH (08:15)
[2019-03-03] MEDS: Multivit, Therapeutic 1 TAB PO SCH (08:15)
[2019-03-03] MEDS: Sodium Chloride 0.65% Nasal 44 ML BOT EA NARE SCH ×3 (08:15→22:21)
[2019-03-03] MEDS: Insulin Glargine 10 UNITS in Pre-Filled Syringe 1 EACH SC SCH (08:15)
[2019-03-03] MEDS: Pantoprazole 40 MG VIAL IVP SCH (08:15)
[2019-03-03] MEDS: Folic Acid 1 MG TAB PO SCH (08:15)
[2019-03-03] MEDS ORDERED: Bupivacaine HCl 0.5%/Epinephrine 1:200,000/PF 30 ml Vial ONE (11:25)
[2019-03-03] MEDS ORDERED: Lidocaine 1% PF 5 ML VIAL ONE (11:39)
[2019-03-03] MEDS ORDERED: Rocuronium Bromide 10 MG/ML (10ML VIAL) ONE (11:39)
[2019-03-03] MEDS ORDERED: Phenylephrine HCL 10 MG/ML VIAL ONE (11:39)
[2019-03-03] MEDS ORDERED: ePHEDrine 50 MG/ML VIAL ONE (11:39)
[2019-03-03] MEDS ORDERED: diphenhydrAMINE 50 MG/ML VIAL ONE (11:39)
[2019-03-03] MEDS ORDERED: PROPOFOL 200 MG/20 ML VIAL ONE (11:39)
[2019-03-03] MEDS ORDERED: Metoclopramide HCl 10 MG/2 ML VIAL ONE (11:39)
[2019-03-03] MEDS ORDERED: hydrALAZINE 20 MG/ML VIAL SLOW IVP SCH (12:00)
[2019-03-03] MEDS ORDERED: cefOXitin 2 GM VIAL ONE ×3 (13:10→19:25)
[2019-03-03] MEDS ORDERED: Sodium Chloride 0.9% 100 ML ONE (13:11)
[2019-03-03] MEDS ORDERED: Fentanyl 100 MCG/2 ML VIAL ONE ×3 (13:53→21:49)
[2019-03-03] MEDS ORDERED: Fentanyl 250 MCG/5 ML VIAL ONE (14:03)
--- NOTE | 2019-03-03 17:50 | PDOC.PN ---
- Subjective Encounter Start Date: 03/03/19 Encounter Start Time: 10:00 Pt seen for followup re: colon mass. Says she feels better. - Objective Resuscitation Status - Order Detail: 02/28/19 03:00 Resuscitation Status Routine Resuscitation Status: FULL: Full Resuscitation Discussed with: patient LISA Reviewed: Yes Vital Signs & Weight: Vital Signs (12 hours) Temp Pulse Resp BP BP Pulse Ox 03/03/19 12:30 98.5 F 72 16 160/74 H 99 03/03/19 12:14 79 193/95 H 03/03/19 11:21 97.3 F L 73 22 H 188/84 H 99 03/03/19 08:00 97 03/03/19 07:38 97.4 F L 62 20 146/75 H 97 Weight Admit Weight 218 lb 2 oz Weight 219 lb 5.759 oz Most Recent Monitor Data Heart Rate from ECG 72 NIBP 160/80 NIBP BP-Mean 106 Respiration from ECG 19 SpO2 100 I&O: 03/02/19 03/03/19 03/04/19 06:59 06:59 06:59 Intake Total 2600 1260 Output Total 1500 900 Balance 1100 360 Result Diagrams: 03/02/19 04:02 03/02/19 04:02 Additional Labs: Accuchecks 03/03/19 03/03/19 03/03/19 17:31 11:25 05:32 POC Glucose 110 118 H 154 H 03/02/19 20:52 POC Glucose 259 H Labs reviewed by me Phys Exam - Physical Examination Obese HEENT: moist MMs Neck: supple Respiratory: clear to auscultation bilateral Cardiovascular: RRR Gastrointestinal: soft Neurological: moves all 4 limbs Psychiatric: normal affect Dx/Plan (1) Colonic mass Code(s): K63.9 - DISEASE OF INTESTINE, UNSPECIFIED Status: Acute Comment: for surgery today (2) Chronic kidney disease, stage 4 (severe) Code(s): N18.4 - CHRONIC KIDNEY DISEASE, STAGE 4 (SEVERE) Status: Chronic Comment: stable (3) Gout Code(s): M10.9 - GOUT, UNSPECIFIED Status: Chronic (4) CAD (coronary artery disease) Code(s): I25.10 - ATHSCL HEART DISEASE OF [place] CORONARY ARTERY W/O ANG PCTRS Status: Chronic - Plan * . Review of Systems - Review of Systems Cardiovascular: negative: chest pain, palpitations, orthopnea, paroxysmal nocturnal dyspnea, edema, light headedness Gastrointestinal: negative: Nausea, Vomiting, Abdominal Pain, Diarrhea, Constipation, Melena, Hematochezia - Medications/Allergies Allergies/Adverse Reactions: Allergies Allergy/AdvReac Type Severity Reaction Status Date / Time allopurinol Allergy Severe BLISTERS Verified 02/28/19 02:37 ON HANDS Sulfa (Sulfonamide Allergy Intermediate ITCHING Verified 02/28/19 02:37 Antibiotics) Medications: Current Medications Acetaminophen (Tylenol) 650 mg PO Q4H PRN PRN Reason: Headache/Fever/Mild Pain (1-3) Last Admin: 03/03/19 01:28 Dose: 650 mg Aspirin (Ecotrin) 81 mg PO DAILY [facility] Last Admin: 03/03/19 08:15 Dose: Not Given Cyanocobalamin (Vitamin B-12) 1,000 mcg PO DAILY [facility] Last Admin: 03/03/19 08:15 Dose: Not Given Dextrose/Water (Dextrose 50%) 50 ml SLOW IVP PRN PRN PRN Reason: Hypoglycemia Last Admin: 02/28/19 04:48 Dose: 50 ml Erythromycin (Erythromycin Base) 250 mg PO Q6H [facility] Last Admin: 03/03/19 12:07 Dose: 250 mg Folic Acid (Folvite) 1 mg PO DAILY [facility] Last Admin: 03/03/19 08:15 Dose: Not Given Glucagon (Glucagon) 1 mg IM PRN PRN PRN Reason: Hypoglycemia Dextrose/Water (D5w) 1,000 mls @ 0 mls/hr IV .Q0M PRN PRN Reason: Hypoglycemia Insulin Glargine 10 units/ (Miscellaneous Medication) 0.1 mls @ 0 mls/hr SC QAM [facility] Last Admin: 03/03/19 08:15 Dose: Not Given Cefoxitin Sodium/Dextrose 2 gm (/ Device) 50 mls @ 50 mls/hr IVPB ONCALL-OR [facility] Stop: 03/04/19 01:46 Insulin Human Lispro (Humalog) 0 units SC .MILD SLIDING SCALE PRN PRN Reason: Mild Correctional Scale Last Admin: 03/02/19 16:59 Dose: 6 unit Multivitamins (Theragran) 1 tab PO DAILY [facility] Last Admin: 03/03/19 08:15 Dose: Not Given Neomycin Sulfate (Neomycin Sulfate) 500 mg PO Q8H [facility] Last Admin: 03/03/19 08:15 Dose: 500 mg Oxymetazoline HCl (Oxymetazoline Hcl) 0 sprays NASAL Q4H PRN PRN Reason: Epistaxis Pantoprazole Sodium (Protonix) 40 mg IVP DAILY [facility] Last Admin: 03/03/19 08:15 Dose: Not Given Sodium Chloride (Flush - Normal Saline) 10 ml IVF Q12HR [facility] Last Admin: 03/03/19 08:15 Dose: 10 ml Sodium Chloride (Flush - Normal Saline) 10 ml IVF PRN PRN PRN Reason: Saline Flush Sodium Chloride ([place] Nasal [place] 0.65%) 0 ml EA NARE TID [facility] Last Admin: 03/03/19 08:15 Dose: 1 spr
[2019-03-03] MEDS ORDERED: SUGAMMADEX SODIUM 200 MG/2 ML VIAL ONE (19:36)
[2019-03-03] MEDS ORDERED: Insulin Glargine 10 UNITS in Pre-Filled Syringe 1 EACH SC SCH (21:00)
[2019-03-03] MEDS ORDERED: Midazolam HCl 2 mg/2 ml Vial ONE (21:48)
[2019-03-03] MEDS ORDERED: Fentanyl BOLUS 250 ML IVPB PRN (21:58)
[2019-03-03] MEDS ORDERED: DISCONTINUE PREVIOUS NARCOTIC PAIN MEDICATIONS AND BENZODIAZEPINES FS SCH (21:58)
[2019-03-03] MEDS ORDERED: Morphine 2 MG/ML SYRINGE SLOW IVP PRN (21:58)
[2019-03-03] MEDS ORDERED: Propofol BOLUS 1,000 MG/100 ML VIAL IV PRN (21:58)
[2019-03-03] MEDS ORDERED: Lorazepam 2 MG/ML VIAL SLOW IVP PRN (21:58)
[2019-03-03] MEDS ORDERED: fentaNYL Citrate/PF 2,000 MCG in Sodium Chloride 0.9% 60 ML IV SCH (21:58)
[2019-03-03 22:13] LABS: Actual Bicarbonate (HCO3a) 22.7 mEq/L (22-28); CO2 Tension 38.5 mmHg (35.0-45.0); pH, Arterial 7.39 (7.35-7.45)
[2019-03-03 22:14] LABS: ALV-art Gradient 131.675 (0-20); Calcium, Ionized 1.14 mmol/L (1.12-1.30); Carboxyhemoglobin (COHb) 0.9 gm% (0.0-3.0); Hemoglobin (Hb) 9.6 g/dL (12.0-16.0); Potassium - ABG Lab 3.52 mmol/L (3.70-5.30); Puncture Site LINE
[2019-03-03] MEDS: Propofol 1,000 MG/100 ML VIAL IV PRN (22:22)
[2019-03-03 22:32] LABS: #Eosinphils 0.1 thou/uL (0.0-0.7); #Lymphocytes 0.6 thou/uL (1.20-3.40); #Monocytes 0.6 thou/uL (0.11-0.59); #Neutrophils 6.1 thou/uL (1.40-6.50); %Basophils 0.4 % (0.0-1.0); %Eosinophils 1.5 % (0.0-10.0); %Lymphocytes 7.6 % (21.0-51.0); %Neutrophils 82.6 % (42.0-75.0); Hemoglobin 9.1 g/dL (12.0-16.0); Mean Corpuscular HGB CONC 32.2 g/dL (32.0-36.0); Mean Corpuscular Hemoglobin 28.3 pg (27.0-31.0); Mean Corpuscular Volume 87.7 fL (78.0-98.0); Mean Platelet Volume 9.5 fL (7.4-10.4); Platelet Count 149 thou/uL (130-400); RBC Distribution Width 16.9 % (11.5-14.5); Red Blood Cell (RBC) Count 3.21 mill/uL (4.20-5.40); White Blood Cell (WBC) Count 7.4 thou/uL (4.8-10.8)
[2019-03-03 22:55] LABS: ALT (SGPT) 21 U/L (8-55); AST (SGOT) 52 U/L (5-34); Albumin 2.8 g/dL (3.4-4.8); Alkaline Phosphatase 69 U/L (40-150); Anion Gap 13 mmol/L (10-20); BUN (Urea Nitrogen) 30 mg/dL (9.8-20.1); Bilirubin, Total 0.9 mg/dL (0.2-1.2); Calc. Creatinine Clearance 43 mL/min (70-130); Calcium 8.3 mg/dL (7.8-10.44); Carbon Dioxide 21 mmol/L (23-31); Chloride 111 mmol/L (98-107); Estimated GFR-MDRD 26; Globulin 3.2 g/dL (2.4-3.5); Glucose 109 mg/dL (80-115); Magnesium 2.4 mg/dL (1.6-2.6); Phosphorus 3.5 mg/dL (2.3-4.7); Sodium 141 mmol/L (136-145)
[2019-03-03] MEDS ORDERED: hydrALAZINE 20 MG/ML VIAL SLOW IVP PRN (23:05)
[2019-03-04] MEDS: Erythromycin Base 250 MG TAB PO SCH ×5 (00:47→22:59)
[2019-03-04] MEDS: Neomycin 500 mg Tablet PO SCH ×4 (00:47→18:03)
[2019-03-04] MEDS: cefOXitin 2 GM in Sodium Chloride 0.9% 100 ML IVPB SCH ×3 (04:58→20:31)
[2019-03-04] MEDS: Propofol 1,000 MG/100 ML VIAL IV PRN (05:02)
[2019-03-04 05:32] LABS: #Lymphocytes 0.5 thou/uL (1.20-3.40); #Monocytes 0.7 thou/uL (0.11-0.59); %Basophils 0.1 % (0.0-1.0); %Eosinophils 0.3 % (0.0-10.0); %Lymphocytes 4.2 % (21.0-51.0); %Monocytes 6.3 % (0.0-10.0); %Neutrophils 89.1 % (42.0-75.0); Hemoglobin 8.7 g/dL (12.0-16.0); Mean Corpuscular HGB CONC 31.1 g/dL (32.0-36.0); Mean Corpuscular Hemoglobin 27.2 pg (27.0-31.0); Mean Corpuscular Volume 87.7 fL (78.0-98.0); Platelet Count 178 thou/uL (130-400); RBC Distribution Width 16.9 % (11.5-14.5); Red Blood Cell (RBC) Count 3.21 mill/uL (4.20-5.40); White Blood Cell (WBC) Count 11.2 thou/uL (4.8-10.8)
[2019-03-04 05:49] LABS: Phosphorus 3.5 mg/dL (2.3-4.7)
[2019-03-04 06:23] LABS: ALT (SGPT) 20 U/L (8-55); AST (SGOT) 37 U/L (5-34); Albumin 2.6 g/dL (3.4-4.8); Alkaline Phosphatase 63 U/L (40-150); Anion Gap 13 mmol/L (10-20); BUN (Urea Nitrogen) 32 mg/dL (9.8-20.1); Bilirubin, Total 0.9 mg/dL (0.2-1.2); Calc. Creatinine Clearance 44 mL/min (70-130); Calcium 8.3 mg/dL (7.8-10.44); Carbon Dioxide 22 mmol/L (23-31); Chloride 112 mmol/L (98-107); Estimated GFR-MDRD 26; Globulin 2.4 g/dL (2.4-3.5); Glucose 138 mg/dL (80-115); Magnesium 1.9 mg/dL (1.6-2.6); Potassium 3.6 mmol/L (3.5-5.1); Sodium 143 mmol/L (136-145)
[2019-03-04] MEDS ORDERED: Morphine 4 MG/ML VIAL ONE (08:47)
[2019-03-04] MEDS: Cyanocobalamin (Vitamin B-12) 1,000 MCG TAB PO SCH (09:10)
[2019-03-04] MEDS: Aspirin 81 mg Enteric Coated Tablet PO SCH (09:10)
[2019-03-04] MEDS: Folic Acid 1 MG TAB PO SCH (09:10)
[2019-03-04] MEDS: Multivit, Therapeutic 1 TAB PO SCH (09:11)
[2019-03-04] MEDS ORDERED: Morphine 4 MG/ML VIAL SLOW IVP SCH (09:15)
[2019-03-04] MEDS: Pantoprazole 40 MG VIAL IVP SCH (09:22)
--- NOTE | 2019-03-04 09:22 | PRG ---
DATE OF SERVICE: 03/04/2019 TIME SPENT: 30 minutes critical time. SUBJECTIVE: This patient was left intubated after surgery. I had not been made aware that until this morning. She is awake, alert, and wants the endotracheal tube out. OBJECTIVE: VITAL SIGNS: Temperature is 98.7, pulse 69, blood pressure 121/43. A 24-hour intake 1260, output 900. HEENT: Unremarkable. NECK: No JVD. LUNGS: Coarse breath sounds. CARDIAC: S1 and S2, regular. ABDOMEN: Soft, nontender. Multiple port sites present from laparoscopic surgery. EXTREMITIES: Brawny edema. LABORATORY DATA: Sodium 143, potassium 3.6, BUN 32, creatinine 1.8, glucose 138. White count is 11.2, hematocrit 28.1, platelet count 178. ASSESSMENT: Status post laparoscopy. She was left intubated after surgery. PLAN: She looks reasonable for extubation. We will go ahead and extubate her nasal cannula. Her art line will be discontinued. Further care per General Surgery. Job ID: [id number]
[2019-03-04] MEDS: Acetaminophen 1,000 MG in Premix Bag 1 BAG IVPB SCH ×2 (10:41→18:06)
[2019-03-04] MEDS: Insulin Glargine 10 UNITS in Pre-Filled Syringe 1 EACH SC SCH (10:49)
--- NOTE | 2019-03-04 16:35 | PDOC.PN ---
- Subjective Encounter Start Date: 03/04/19 Encounter Start Time: 10:00 Pt seen for followup re: colon mass. Sleepy but arousable, not answering questions, could not complete ROS. - Objective Resuscitation Status - Order Detail: 02/28/19 03:00 Resuscitation Status Routine Resuscitation Status: FULL: Full Resuscitation Discussed with: patient MAR Reviewed: Yes Vital Signs & Weight: Vital Signs (12 hours) Temp Resp Pulse Ox 03/04/19 12:00 97.7 F 03/04/19 08:05 95 03/04/19 08:03 100 03/04/19 08:00 99 03/04/19 07:00 98.3 F 03/04/19 05:47 17 03/04/19 04:47 12 Weight Admit Weight 218 lb 2 oz Weight 219 lb 5.759 oz Most Recent Monitor Data Heart Rate from ECG 76 NIBP 109/43 NIBP BP-Mean 70 Respiration from ECG 14 SpO2 99 I&O: 03/03/19 03/04/19 03/05/19 06:59 06:59 06:59 Intake Total 1260 190.7 100 Output Total 900 415 120 Balance 360 -224.3 -20 Result Diagrams: 03/04/19 05:05 03/04/19 05:05 Additional Labs: Accuchecks 03/04/19 03/04/19 03/04/19 15:29 10:50 05:58 POC Glucose 111 H 124 H 128 H 03/03/19 03/03/19 19:41 17:31 POC Glucose 119 H 110 EKG Reviewed by me: Yes (Tele: NSR) Phys Exam - Physical Examination Obese HEENT: moist MMs Neck: supple Respiratory: clear to auscultation bilateral Cardiovascular: RRR Gastrointestinal: soft surgical sites clean Neurological: moves all 4 limbs Deviation from normal: Unable to assess Dx/Plan (1) Colonic mass Code(s): K63.9 - DISEASE OF INTESTINE, UNSPECIFIED Status: Acute Comment: s/ p surgery yesterday, extubated today. (2) Chronic kidney disease, stage 4 (severe) Code(s): N18.4 - CHRONIC KIDNEY DISEASE, STAGE 4 (SEVERE) Status: Chronic Comment: stable (3) Gout Code(s): M10.9 - GOUT, UNSPECIFIED Status: Chronic Comment: stable (4) CAD (coronary artery disease) Code(s): I25.10 - ATHSCL HEART DISEASE OF [place] CORONARY ARTERY W/O ANG PCTRS Status: Chronic Comment: stable - Plan * . Review of Systems - Medications/Allergies Allergies/Adverse Reactions: Allergies Allergy/AdvReac Type Severity Reaction Status Date / Time allopurinol Allergy Severe BLISTERS Verified 02/28/19 02:37 ON HANDS Sulfa (Sulfonamide Allergy Intermediate ITCHING Verified 02/28/19 02:37 Antibiotics) Medications: Current Medications Acetaminophen (Tylenol) 650 mg PO Q4H PRN PRN Reason: Headache/Fever/Mild Pain (1-3) Last Admin: 03/03/19 01:28 Dose: 650 mg Aspirin (Ecotrin) 81 mg PO DAILY [facility] Last Admin: 03/04/19 09:10 Dose: Not Given Cyanocobalamin (Vitamin B-12) 1,000 mcg PO DAILY [facility] Last Admin: 03/04/19 09:10 Dose: Not Given Dextrose/Water (Dextrose 50%) 50 ml SLOW IVP PRN PRN PRN Reason: Hypoglycemia Last Admin: 02/28/19 04:48 Dose: 50 ml Erythromycin (Erythromycin Base) 250 mg PO Q6H [facility] Last Admin: 03/04/19 14:45 Dose: Not Given Folic Acid (Folvite) 1 mg PO DAILY [facility] Last Admin: 03/04/19 09:10 Dose: Not Given Glucagon (Glucagon) 1 mg IM PRN PRN PRN Reason: Hypoglycemia Heparin Sodium (Porcine) (Heparin) 5,000 units SC BID [facility] Hydralazine HCl (Apresoline) 10 mg SLOW IVP Q4H PRN PRN Reason: SBP Greater Than 180 Last Admin: 03/03/19 23:15 Dose: 10 mg Dextrose/Water (D5w) 1,000 mls @ 0 mls/hr IV .Q0M PRN PRN Reason: Hypoglycemia Insulin Glargine 10 units/ (Miscellaneous Medication) 0.1 mls @ 0 mls/hr SC QAM [facility] Last Admin: 03/04/19 10:49 Dose: Not Given Cefoxitin Sodium 2 gm/ Sodium (Chloride) 100 mls @ 100 mls/hr IVPB 0400,1200, 2000 [facility] Last Admin: 03/04/19 12:45 Dose: 100 mls Acetaminophen 1,000 mg/ Device 100 mls @ 400 mls/hr IVPB Q6HR [facility] Stop: 03/05/19 06:14 Last Admin: 03/04/19 10:41 Dose: 100 mls Insulin Human Lispro (Humalog) 0 units SC .MILD SLIDING SCALE PRN PRN Reason: Mild Correctional Scale Last Admin: 03/02/19 16:59 Dose: 6 unit Multivitamins (Theragran) 1 tab PO DAILY [facility] Last Admin: 03/04/19 09:11 Dose: Not Given Neomycin Sulfate (Neomycin Sulfate) 500 mg PO Q8H [facility] Last Admin: 03/04/19 09:11 Dose: Not Given Oxymetazoline HCl (Oxymetazoline Hcl) 0 sprays NASAL Q4H PRN PRN Reason: Epistaxis Pantoprazole Sodium (Protonix) 40 mg IVP DAILY [facility] Last Admin: 03/04/19 09:22 Dose: 40 mg Sodium Chloride (Flush - Normal Saline) 10 ml IVF Q12HR [facility] Last Admin: 03/04/19 09:22 Dose: 10 ml Sodium Chloride (Flush - Normal Saline) 10 ml IVF PRN PRN PRN Reason: Saline Flush Sodium Chloride ([place] Nasal [place] 0.65%) 0 ml EA NARE TID [facility] Last Admin: 03/03/19 22:21 Dose: Not Given
--- NOTE | 2019-03-04 16:37 | PDOC.GSPN ---
Surgery Progress Note: Subj - Subjective Narrative: Patient extubated early this morning. She is breathing okay but having a fair amount of abdominal pain despite the tap block. No nausea or vomiting, but has not passed gas either. Her incisions looked good but bowel sounds are hypoactive. I ordered a CAREER SPECIALIST for her. Her urine output was adequate overnight, but she is only on minimal IV fluids. I have advanced this to maintenance levels. H&H and creatinine are stable. We will try to advance her activities as tolerated. She can have ice chips today. Surgery Progress Note: Obj - Vital signs Vital signs: Vital Signs - Most Recent Temp Pulse Resp BP Pulse Ox 97.7 F 70 17 122/58 L 95 03/04/19 12:00 03/04/19 02:21 03/04/19 05:47 03/04/19 02:21 03/04/19 08:05 Surgery Progress Note: Results - Labs Result Diagrams: 03/04/19 05:05 03/04/19 05:05 Lab results: Laboratory Results - last 24 hr 03/04/19 03/04/19 03/04/19 05:05 05:05 05:05 WBC 11.2 H RBC 3.21 L Hgb 8.7 L Hct 28.1 L MCV 87.7 MCH 27.2 MCHC 31.1 L RDW 16.9 H Plt Count 178 MPV 9.0 Neutrophils % 89.1 H Lymphocytes % 4.2 L Monocytes % 6.3 Eosinophils % 0.3 Basophils % 0.1 Neutrophils # 10.0 H Lymphocytes # 0.5 L Monocytes # 0.7 H Eosinophils # 0.0 Basophils # 0.0 Sodium 143 Potassium 3.6 Chloride 112 H Carbon Dioxide 22 L Anion Gap 13 BUN 32 H Creatinine 1.88 H Estimated GFR (MDRD) 26 Glucose 138 H POC Glucose Calcium 8.3 Phosphorus 3.5 Magnesium 1.9 Total Bilirubin 0.9 AST 37 H ALT 20 Alkaline Phosphatase 63 Serum Total Protein 5.0 L Albumin 2.6 L Globulin 2.4 Albumin/Globulin Ratio 1.1 L 03/04/19 03/04/19 03/04/19 05:58 10:50 15:29 WBC RBC Hgb Hct MCV MCH MCHC RDW Plt Count MPV Neutrophils % Lymphocytes % Monocytes % Eosinophils % Basophils % Neutrophils # Lymphocytes # Monocytes # Eosinophils # Basophils # Sodium Potassium Chloride Carbon Dioxide Anion Gap BUN Creatinine Estimated GFR (MDRD) Glucose POC Glucose 128 H 124 H 111 H Calcium Phosphorus Magnesium Total Bilirubin AST ALT Alkaline Phosphatase Serum Total Protein Albumin Globulin Albumin/Globulin Ratio
[2019-03-04] MEDS: Sodium Chloride 0.65% Nasal 44 ML BOT EA NARE SCH ×2 (16:51→20:32)
--- NOTE | 2019-03-04 17:14 | PRG ---
DATE OF SERVICE: 03/04/2019 SUBJECTIVE: Ms. Bruce is doing well. She is postop day #1. No current complaints. OBJECTIVE: VITAL SIGNS: Blood pressure 109/43, pulse 76, and temperature afebrile. LUNGS: Clear to auscultation. HEART: Regular rate and rhythm. ABDOMEN: Soft, nontender, and nondistended. EXTREMITIES: No edema. IMPRESSION: 1. Coronary artery disease. 2. Status post stent placement. 3. Preop clearance. RECOMMENDATIONS: Ms. Bruce appears to be doing well. We would recommend aspirin when okay with Dr. Garcia. We will hold Plavix. We would recommend continuing low-dose beta-simona therapy in addition to statin therapy. We will add low-dose Toprol. Job ID: [id number]
[2019-03-04] MEDS: Metoprolol Tartrate 25 MG TAB PO SCH (20:30)
[2019-03-04] MEDS: Heparin 5,000 UNITS/ML VIAL SC SCH (20:31)
[2019-03-05] MEDS: Neomycin 500 mg Tablet PO SCH ×2 (00:45→09:59)
[2019-03-05] MEDS: Acetaminophen 1,000 MG in Premix Bag 1 BAG IVPB SCH ×2 (00:45→05:53)
[2019-03-05] MEDS: cefOXitin 2 GM in Sodium Chloride 0.9% 100 ML IVPB SCH ×2 (04:25→11:48)
[2019-03-05 05:29] LABS: Anion Gap 13 mmol/L (10-20); BUN (Urea Nitrogen) 36 mg/dL (9.8-20.1); Calc. Creatinine Clearance 30 mL/min (70-130); Calcium 8.5 mg/dL (7.8-10.44); Carbon Dioxide 23 mmol/L (23-31); Chloride 112 mmol/L (98-107); Estimated GFR-MDRD 17; Glucose 89 mg/dL (80-115); Potassium 3.8 mmol/L (3.5-5.1); Sodium 144 mmol/L (136-145)
[2019-03-05 05:30] LABS: Hemoglobin 8.8 g/dL (12.0-16.0); MDiff Complete? YES; Mean Corpuscular HGB CONC 30.5 g/dL (32.0-36.0); Mean Corpuscular Hemoglobin 27.2 pg (27.0-31.0); Mean Corpuscular Volume 89.2 fL (78.0-98.0); Mean Platelet Volume 8.9 fL (7.4-10.4); Platelet Count 164 thou/uL (130-400); RBC Distribution Width 17.2 % (11.5-14.5); Red Blood Cell (RBC) Count 3.22 mill/uL (4.20-5.40); White Blood Cell (WBC) Count 13.6 thou/uL (4.8-10.8)
[2019-03-05 05:31] LABS: Band 36 % (5-11); Eosinophils 3 % (0-10); Lymphocytes 5 % (21-51); Monocytes 3 % (0-10); Neutrophil 53 % (42-75); Platelet Morphology Comment Appears Adequate
[2019-03-05] MEDS: Erythromycin Base 250 MG TAB PO SCH ×2 (05:54→11:14)
[2019-03-05] MEDS: Metoprolol Tartrate 25 MG TAB PO SCH ×2 (07:42→19:51)
[2019-03-05] MEDS: Heparin 5,000 UNITS/ML VIAL SC SCH ×2 (07:42→19:59)
[2019-03-05] MEDS: Pantoprazole 40 MG VIAL IVP SCH (07:43)
[2019-03-05] MEDS ORDERED: Albumin 25% 25 GM/100 ML BOT IVPB ONE (08:01)
[2019-03-05] MEDS: Insulin Glargine 10 UNITS in Pre-Filled Syringe 1 EACH SC SCH (08:02)
--- NOTE | 2019-03-05 08:16 | PRG ---
DATE OF SERVICE: 03/05/2019 SUBJECTIVE: The patient is doing well. She had no acute complaints. OBJECTIVE: VITAL SIGNS: On exam, temperature is 97.6, pulse 75, and blood pressure 104/40. A 24-hour intake 2871, output 315. HEENT: Unremarkable. NECK: No adenopathy, JVD, or bruits. LUNGS: Clear to auscultation. CARDIAC: S1 and S2 regular without audible murmur. ABDOMEN: Soft, nontender. Surgical site appears to be healing well. EXTREMITIES: No clubbing, cyanosis, or edema. LABORATORY DATA: Sodium 144, potassium 3.8, chloride 112, CO2 of 23, BUN 36, creatinine 2.7, and glucose 89. White blood cell count 13.6, hemoglobin 8.8, hematocrit 28.8, and platelet count 164. ASSESSMENT: 1. Status post post-surgical respiratory failure, requiring brief mechanical ventilation. 2. Elevated creatinine. 3. Coronary artery disease, status post stent placement. PLAN: 1. From my standpoint, she can be transferred out to the surgical floor. Her labs need to be trended. 2. Initiate physical therapy. Job ID: [id number]
[2019-03-05] MEDS: Multivit, Therapeutic 1 TAB PO SCH (09:59)
[2019-03-05] MEDS: Aspirin 81 mg Enteric Coated Tablet PO SCH (09:59)
[2019-03-05] MEDS: Cyanocobalamin (Vitamin B-12) 1,000 MCG TAB PO SCH (09:59)
[2019-03-05] MEDS: Folic Acid 1 MG TAB PO SCH (09:59)
[2019-03-05] MEDS: Sodium Chloride 0.65% Nasal 44 ML BOT EA NARE SCH ×3 (10:00→19:59)
[2019-03-05] MEDS: Sodium Chloride 0.9% 1,000 ML IV SCH (10:39)
[2019-03-05] MEDS ORDERED: Sodium Chloride 0.9% 1,000 ML IV SCH (11:15)
[2019-03-05] MEDS ORDERED: diphenhydrAMINE 50 MG/ML VIAL ONE (11:35)
[2019-03-05] MEDS ORDERED: fentaNYL Citrate/PF 2,000 MCG in Sodium Chloride 0.9% 60 ML IV PRN (11:36)
[2019-03-05] MEDS: diphenhydrAMINE 50 MG/ML VIAL IVP PRN ×2 (11:40→19:45)
[2019-03-05] MEDS ORDERED: Sodium Bicarb 50 MEQ/50 ML VIAL ONE (15:09)
--- NOTE | 2019-03-05 15:37 | PDOC.GSPN ---
Surgery Progress Note: Subj - Subjective Narrative: Patient is feeling okay. She did get up out of bed. She has had some diarrhea and passed a little bit of gas. She is not nauseated. Pain is controlled with TELEVISION PRODUCER. Vital signs are okay. Urine output is poor and creatinine has risen. She did not respond to albumin this morning. I ordered some IV fluids for her and consulted nephrology. This may be quite difficult to manage given her heart failure and renal insufficiency. Her incisions look good. Her abdomen is still quiet. We will start her on clear liquids and clamp her NG tube. If her residuals are low this can be discontinued. Her O2 sats are good and she is not short of breath. If she doesn't respond to the IV fluids I may give her some blood. The original biopsy from her colonoscopy came back positive for adenocarcinoma. Final pathology on the colon specimen is still pending. The above issues and plan were discussed with the patient and her son. Surgery Progress Note: Obj - Vital signs Vital signs: Vital Signs - Most Recent Temp Pulse Resp BP Pulse Ox 97.7 F 71 17 92/50 L 95 03/05/19 11:00 03/05/19 09:25 03/04/19 05:47 03/05/19 09:25 03/05/19 09:25 Surgery Progress Note: Results - Labs Result Diagrams: 03/05/19 04:35 03/05/19 04:35 Lab results: Laboratory Results - last 24 hr 03/05/19 03/05/19 03/05/19 04:35 04:35 05:10 WBC 13.6 H RBC 3.22 L Hgb 8.8 L Hct 28.8 L MCV 89.2 MCH 27.2 MCHC 30.5 L RDW 17.2 H Plt Count 164 MPV 8.9 Neutrophils % (Manual) 53 Band Neuts % (Manual) 36 H Lymphocytes % (Manual) 5 L Monocytes % (Manual) 3 Eosinophils % (Manual) 3 Plt Morphology Comment Appears Adequate Sodium 144 Potassium 3.8 Chloride 112 H Carbon Dioxide 23 Anion Gap 13 BUN 36 H Creatinine 2.71 H Estimated GFR (MDRD) 17 Glucose 89 POC Glucose 95 Calcium 8.5 03/05/19 11:48 WBC RBC Hgb Hct MCV MCH MCHC RDW Plt Count MPV Neutrophils % (Manual) Band Neuts % (Manual) Lymphocytes % (Manual) Monocytes % (Manual) Eosinophils % (Manual) Plt Morphology Comment Sodium Potassium Chloride Carbon Dioxide Anion Gap BUN Creatinine Estimated GFR (MDRD) Glucose POC Glucose 84 Calcium
--- NOTE | 2019-03-05 16:49 | CON ---
DATE OF CONSULTATION: REASON FOR CONSULTATION: Elevated creatinine. HISTORY OF PRESENT ILLNESS: This is a pleasant 68-year-old female, followed by Dr. Spring, presented to the hospital on February 28, 2019, for diarrhea. The patient had a creatinine of 2.2 on admission, which dropped to 1.8 and has increased to 2.7 today. The patient is diabetic and has known CKD stage 3 to stage 4. The patient on February 28 has had severe hypoglycemia. PAST MEDICAL HISTORY: Significant for diabetes mellitus, hypertension, GERD, blindness, congestive heart failure, CKD stage 3/4, peripheral neuropathy, gout, coronary artery disease with stent, history of cataract surgery, retina repair, , and tonsillectomy. FAMILY HISTORY: Negative for ESRD. ALLERGIES: REVIEWED. HOME MEDICATION: List reviewed. REVIEW OF SYSTEMS: A 15-point review of system was performed and negative except for positives noted above. GENERAL: HEAD: NECK: No swelling or lumps. NOSE: No epistaxis or discharge. EYES: No diplopia or pain. RESPIRATORY: CARDIOVASCULAR: GASTROINTESTINAL: /MANAGING JEWELER: MUSCULOSKELETAL: No joint pain. NEUROPSYCHIATRIC SYSTEMS: No suicidal ideation. No ideation. SKIN: Denies any rash or ulcer. CONSTITUTIONAL: No fever or chills. PHYSICAL EXAMINATION: GENERAL: The patient is awake and alert. VITAL SIGNS: Afebrile, pulse 81, breathing 16, and blood pressure 108/42. GENERAL APPEARANCE AND MENTAL STATUS: Fair. HEAD/NECK: Normocephalic. Atraumatic. EYES: EOMI. No deformity. EARS: Clear. No ulcers. NOSE: Intact. No lesions. MOUTH: Clear. No discharge. THROAT: Clear. No exudate. LUNGS: Clear. No crackles. CARDIAC: S1, S2. No rub. ABDOMEN: Benign. Bowel sounds positive. GENITALIA/RECTUM: Rajan absent. BACK/EXTREMITIES: Edema 0+. NEUROLOGICAL: Alert and motor intact. SKIN: LYMPHATICS: LABORATORY DATA: Reviewed. ASSESSMENT AND PLAN: Chronic kidney disease stage 4 with acute kidney injury, multifactorial because of progressive diabetic disease in the setting of decreased effective arterial blood volume. No indication for dialysis. Hypertension, stable. Anemia, stable. Medication based on GFR, appropriate. We will follow the patient's renal function closely Job ID: [id number]
--- NOTE | 2019-03-05 18:02 | PDOC.PN ---
- Subjective Encounter Start Date: 03/05/19 Encounter Start Time: 11:40 Pt seen for followup re: colon mass. Feels much better today. Had bowel movement today - Objective Resuscitation Status - Order Detail: 02/28/19 03:00 Resuscitation Status Routine Resuscitation Status: FULL: Full Resuscitation Discussed with: patient LISA Reviewed: Yes Vital Signs & Weight: Vital Signs (12 hours) Temp Pulse Pulse BP BP Pulse Ox Pulse Ox 03/05/19 16:00 98.1 F 03/05/19 11:00 97.7 F 03/05/19 09:25 71 75 92/50 L 101/45 L 94 L 03/05/19 07:12 99 03/05/19 07:00 97.6 F Pulse Ox 03/05/19 16:00 03/05/19 11:00 03/05/19 09:25 90 L 03/05/19 07:12 03/05/19 07:00 Weight Admit Weight 218 lb 2 oz Weight 219 lb 5.759 oz Most Recent Monitor Data Heart Rate from ECG 75 NIBP 99/44 NIBP BP-Mean 78 Respiration from ECG 14 SpO2 100 I&O: 03/04/19 03/05/19 03/06/19 06:59 06:59 06:59 Intake Total 190.7 2871 1913 Output Total 415 250 90 Balance -224.3 2621 1823 Result Diagrams: 03/05/19 04:35 03/05/19 04:35 Additional Labs: Accuchecks 03/05/19 03/05/19 03/05/19 11:48 05:10 00:48 POC Glucose 84 95 94 03/04/19 20:36 POC Glucose 93 Labs reviewed by me EKG Reviewed by me: Yes (Tele: NSR) Phys Exam - Physical Examination Obese HEENT: moist MMs Neck: supple Respiratory: clear to auscultation bilateral Cardiovascular: RRR Gastrointestinal: soft, positive bowel sounds Neurological: moves all 4 limbs Psychiatric: normal affect Dx/Plan (1) Colonic mass Code(s): K63.9 - DISEASE OF INTESTINE, UNSPECIFIED Status: Acute Comment: s/ p surgery, s/p extubation (2) Chronic kidney disease, stage 4 (severe) Code(s): N18.4 - CHRONIC KIDNEY DISEASE, STAGE 4 (SEVERE) Status: Chronic Comment: stable (3) Gout Code(s): M10.9 - GOUT, UNSPECIFIED Status: Chronic Comment: stable (4) CAD (coronary artery disease) Code(s): I25.10 - ATHSCL HEART DISEASE OF [place] CORONARY ARTERY W/O ANG PCTRS Status: Chronic Comment: stable - Plan * . 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 Review of Systems - Review of Systems Cardiovascular: negative: chest pain, palpitations, orthopnea, paroxysmal nocturnal dyspnea, edema, light headedness Gastrointestinal: negative: Nausea, Vomiting, Abdominal Pain, Diarrhea, Constipation, Melena, Hematochezia - Medications/Allergies Allergies/Adverse Reactions: Allergies Allergy/AdvReac Type Severity Reaction Status Date / Time allopurinol Allergy Severe BLISTERS Verified 02/28/19 02:37 ON HANDS Sulfa (Sulfonamide Allergy Intermediate ITCHING Verified 02/28/19 02:37 Antibiotics) Medications: Current Medications Acetaminophen (Tylenol) 650 mg PO Q4H PRN PRN Reason: Headache/Fever/Mild Pain (1-3) Last Admin: 03/03/19 01:28 Dose: 650 mg Aspirin (Ecotrin) 81 mg PO DAILY [facility] Last Admin: 03/05/19 09:59 Dose: Not Given Cyanocobalamin (Vitamin B-12) 1,000 mcg PO DAILY [facility] Last Admin: 03/05/19 09:59 Dose: Not Given Dextrose/Water (Dextrose 50%) 50 ml SLOW IVP PRN PRN PRN Reason: Hypoglycemia Last Admin: 02/28/19 04:48 Dose: 50 ml Diphenhydramine HCl (Benadryl) 25 mg IVP Q6H PRN PRN Reason: Itching Last Admin: 03/05/19 11:40 Dose: 25 mg Folic Acid (Folvite) 1 mg PO DAILY [facility] Last Admin: 03/05/19 09:59 Dose: Not Given Glucagon (Glucagon) 1 mg IM PRN PRN PRN Reason: Hypoglycemia Heparin Sodium (Porcine) (Heparin) 5,000 units SC BID [facility] Last Admin: 03/05/19 07:42 Dose: 5,000 units Hydralazine HCl (Apresoline) 10 mg SLOW IVP Q4H PRN PRN Reason: SBP Greater Than 180 Last Admin: 03/03/19 23:15 Dose: 10 mg Dextrose/Water (D5w) 1,000 mls @ 0 mls/hr IV .Q0M PRN PRN Reason: Hypoglycemia Insulin Glargine 10 units/ (Miscellaneous Medication) 0.1 mls @ 0 mls/hr SC QAM [facility] Last Admin: 03/05/19 08:02 Dose: Not Given Sodium Chloride (Normal Saline 0.9%) 1,000 mls @ 100 mls/hr IV .Q10H [facility] Last Admin: 03/05/19 10:39 Dose: 1,000 mls Fentanyl Citrate 2,000 mcg/ (Sodium Chloride) 100 mls @ 0 mls/hr IV INF PRN PRN Reason: Pain Insulin Human Lispro (Humalog) 0 units SC .MILD SLIDING SCALE PRN PRN Reason: Mild Correctional Scale Last Admin: 03/02/19 16:59 Dose: 6 unit Metoprolol Tartrate (Lopressor) 12.5 mg PO BID [facility] Last Admin: 03/05/19 07:42 Dose: Not Given Multivitamins (Theragran) 1 tab PO DAILY [facility] Last Admin: 03/05/19 09:59 Dose: Not Given Oxymetazoline HCl (Oxymetazoline Hcl) 0 sprays NASAL Q4H PRN PRN Reason: Epistaxis Pantoprazole Sodium (Protonix) 40 mg IVP DAILY [facility] Last Admin: 03/05/19 07:43 Dose: 40 mg Saccharomyces Boulardii (Florastor) 250 mg PO DAILY [facility] Sodium Chloride (Flush - Normal Saline) 10 ml IVF Q12HR [facility] Last Admin: 03/05/19 07:43 Dose: 10 ml Sodium Chloride (Flush - Normal Saline) 10 ml IVF PRN PRN PRN Reason: Saline Flush Sodium Chloride ([place] Nasal [place] 0.65%) 0 ml EA NARE TID [facility] Last Admin: 03/05/19 15:01 Dose: Not Given
[2019-03-06] MEDS ORDERED: diphenhydrAMINE 50 MG/ML VIAL ONE (04:22)
[2019-03-06] MEDS ORDERED: Albumin 25% 25 GM/100 ML BOT IVPB SCH (08:45)
[2019-03-06] MEDS: Aspirin 81 mg Enteric Coated Tablet PO SCH (09:34)
[2019-03-06] MEDS: Multivit, Therapeutic 1 TAB PO SCH (09:35)
[2019-03-06] MEDS: Saccharomyces boulardii 250 MG CAP PO SCH (09:35)
[2019-03-06] MEDS: Folic Acid 1 MG TAB PO SCH (09:35)
[2019-03-06] MEDS: Heparin 5,000 UNITS/ML VIAL SC SCH ×2 (09:36→19:57)
[2019-03-06] MEDS: Metoprolol Tartrate 25 MG TAB PO SCH ×2 (09:36→19:58)
[2019-03-06] MEDS: Pantoprazole 40 MG VIAL IVP SCH (09:37)
[2019-03-06] MEDS: Sodium Chloride 0.9% 1,000 ML IV SCH ×2 (09:43→11:18)
[2019-03-06] MEDS: Insulin Glargine 10 UNITS in Pre-Filled Syringe 1 EACH SC SCH (09:43)
[2019-03-06] MEDS: Sodium Chloride 0.65% Nasal 44 ML BOT EA NARE SCH ×3 (09:44→19:59)
[2019-03-06] MEDS: Cyanocobalamin (Vitamin B-12) 1,000 MCG TAB PO SCH (10:11)
[2019-03-06 10:13] LABS: Hemoglobin 9.7 g/dL (12.0-16.0); White Blood Cell (WBC) Count 14.3 thou/uL (4.8-10.8)
[2019-03-06 10:14] LABS: Mean Corpuscular HGB CONC 30.4 g/dL (32.0-36.0); Mean Corpuscular Hemoglobin 26.9 pg (27.0-31.0); Mean Corpuscular Volume 88.7 fL (78.0-98.0); Platelet Count 153 thou/uL (130-400); RBC Distribution Width 16.5 % (11.5-14.5)
[2019-03-06 10:15] LABS: #Eosinphils 0.3 thou/uL (0.0-0.7); #Lymphocytes 0.8 thou/uL (1.20-3.40); #Monocytes 0.9 thou/uL (0.11-0.59); #Neutrophils 12.2 thou/uL (1.40-6.50); %Basophils 0.2 % (0.0-1.0); %Eosinophils 2.2 % (0.0-10.0); %Lymphocytes 5.9 % (21.0-51.0); %Monocytes 6.2 % (0.0-10.0); %Neutrophils 85.5 % (42.0-75.0); Mean Platelet Volume 9.2 fL (7.4-10.4)
[2019-03-06] MEDS ORDERED: Furosemide 40 MG/4 ML VIAL SLOW IVP SCH (10:45)
--- NOTE | 2019-03-06 10:55 | PRG ---
DATE OF SERVICE: 03/06/2019 SUBJECTIVE: A 68-year-old female being seen for acute kidney injury. The patient denied any nausea, vomiting, and chest pain. OBJECTIVE: CONSTITUTIONAL: The patient is awake and alert. VITAL SIGNS: Afebrile, pulse 78, breathing 16, blood pressure 93/60. GENERAL APPEARANCE AND MENTAL STATUS: Fair. HEAD/NECK: Normocephalic. Atraumatic. EYES: EOMI. No deformity. EARS: Clear. No ulcers. NOSE: Intact. No lesions. MOUTH: Clear. No discharge. THROAT: Clear. No exudate. LUNGS: Clear. No crackles. CARDIAC: S1, S2. No rub. ABDOMEN: Benign. Bowel sounds positive. GENITALIA/RECTUM: Rajan absent. BACK/EXTREMITIES: Edema 0+. NEUROLOGICAL: Alert and motor intact. SKIN: LYMPHATICS: LABORATORY DATA: Labs are pending. ASSESSMENT AND PLAN: Chronic kidney disease stage 4 with acute kidney injury due to acute tubular necrosis. Follow renal function and labs. Hypertension, stable. Anemia, stable. No urgent indication for dialysis. Job ID: [id number]
[2019-03-06 14:19] LABS: Anion Gap 15 mmol/L (10-20); BUN (Urea Nitrogen) 43 mg/dL (9.8-20.1); Calc. Creatinine Clearance 25 mL/min (70-130); Calcium 8.6 mg/dL (7.8-10.44); Carbon Dioxide 20 mmol/L (23-31); Chloride 109 mmol/L (98-107); Estimated GFR-MDRD 14; Glucose 145 mg/dL (80-115); Potassium 3.9 mmol/L (3.5-5.1); Sodium 140 mmol/L (136-145)
--- NOTE | 2019-03-06 16:54 | PDOC.PN ---
- Subjective Encounter Start Date: 03/06/19 Encounter Start Time: 11:00 Pt seen for followup re: acute on chronic renal failure stage 4. Says she is nauseous. Abdo discomfort+ - Objective Resuscitation Status - Order Detail: 02/28/19 03:00 Resuscitation Status Routine Resuscitation Status: FULL: Full Resuscitation Discussed with: patient LISA Reviewed: Yes Vital Signs & Weight: Vital Signs (12 hours) Temp Pulse Pulse Pulse Resp BP BP 03/06/19 15:36 98.0 F 80 03/06/19 13:00 03/06/19 12:58 97.8 F 75 24 H 03/06/19 12:00 97.9 F 03/06/19 10:00 88 84 134/60 131/56 L 03/06/19 08:00 97.9 F BP Pulse Ox 03/06/19 15:36 03/06/19 13:00 97 03/06/19 12:58 131/60 97 03/06/19 12:00 03/06/19 10:00 03/06/19 08:00 Weight Admit Weight 218 lb 2 oz Weight 219 lb 5.759 oz Most Recent Monitor Data Heart Rate from ECG 76 NIBP 120/73 NIBP BP-Mean 88 Respiration from ECG 16 SpO2 100 I&O: 03/05/19 03/06/19 03/07/19 06:59 06:59 06:59 Intake Total 2871 2153 910 Output Total 250 107 125 Balance 2621 2046 785 Result Diagrams: 03/06/19 03:46 03/07/19 06:55 Additional Labs: Accuchecks 03/06/19 03/06/19 03/06/19 16:35 11:46 05:16 POC Glucose 129 H 149 H 104 03/06/19 03/05/19 00:20 20:09 POC Glucose 120 H 113 H EKG Reviewed by me: Yes (Tele: NSR) Phys Exam - Physical Examination Obese HEENT: moist MMs Neck: supple Respiratory: clear to auscultation bilateral Cardiovascular: RRR Gastrointestinal: soft Musculoskeletal: edema present Neurological: moves all 4 limbs Psychiatric: normal affect Dx/Plan (1) Acute worsening of stage 4 chronic kidney disease Code(s): N18.4 - CHRONIC KIDNEY DISEASE, STAGE 4 (SEVERE) Status: Acute Comment: IV albumin today, follow electrolytes and creatinine (2) Colonic mass Code(s): K63.9 - DISEASE OF INTESTINE, UNSPECIFIED Status: Acute Comment: s/ p surgery (3) Chronic kidney disease, stage 4 (severe) Code(s): N18.4 - CHRONIC KIDNEY DISEASE, STAGE 4 (SEVERE) Status: Chronic Comment: stable (4) Gout Code(s): M10.9 - GOUT, UNSPECIFIED Status: Chronic Comment: stable (5) CAD (coronary artery disease) Code(s): I25.10 - ATHSCL HEART DISEASE OF [place] CORONARY ARTERY W/O ANG PCTRS Status: Chronic Comment: stable - Plan * . Review of Systems - Review of Systems Constitutional: weakness. negative: fever, chills, sweats, malaise Cardiovascular: negative: chest pain, palpitations, orthopnea, paroxysmal nocturnal dyspnea, edema, light headedness Gastrointestinal: Nausea - Medications/Allergies Allergies/Adverse Reactions: Allergies Allergy/AdvReac Type Severity Reaction Status Date / Time allopurinol Allergy Severe BLISTERS Verified 02/28/19 02:37 ON HANDS Sulfa (Sulfonamide Allergy Intermediate ITCHING Verified 02/28/19 02:37 Antibiotics) Medications: Current Medications Acetaminophen (Tylenol) 650 mg PO Q4H PRN PRN Reason: Headache/Fever/Mild Pain (1-3) Last Admin: 03/03/19 01:28 Dose: 650 mg Aspirin (Ecotrin) 81 mg PO DAILY [facility] Last Admin: 03/06/19 09:34 Dose: 81 mg Cyanocobalamin (Vitamin B-12) 1,000 mcg PO DAILY [facility] Last Admin: 03/06/19 10:11 Dose: 1,000 mcg Dextrose/Water (Dextrose 50%) 50 ml SLOW IVP PRN PRN PRN Reason: Hypoglycemia Last Admin: 02/28/19 04:48 Dose: 50 ml Diphenhydramine HCl (Benadryl) 25 mg IVP Q6H PRN PRN Reason: Itching Last Admin: 03/05/19 19:45 Dose: 25 mg Folic Acid (Folvite) 1 mg PO DAILY [facility] Last Admin: 03/06/19 09:35 Dose: 1 mg Glucagon (Glucagon) 1 mg IM PRN PRN PRN Reason: Hypoglycemia Heparin Sodium (Porcine) (Heparin) 5,000 units SC BID [facility] Last Admin: 03/06/19 09:36 Dose: 5,000 units Hydralazine HCl (Apresoline) 10 mg SLOW IVP Q4H PRN PRN Reason: SBP Greater Than 180 Last Admin: 03/03/19 23:15 Dose: 10 mg Dextrose/Water (D5w) 1,000 mls @ 0 mls/hr IV .Q0M PRN PRN Reason: Hypoglycemia Insulin Glargine 10 units/ (Miscellaneous Medication) 0.1 mls @ 0 mls/hr SC QAM [facility] Last Admin: 03/06/19 09:43 Dose: 0.1 mls Fentanyl Citrate 2,000 mcg/ (Sodium Chloride) 100 mls @ 0 mls/hr IV INF PRN PRN Reason: Pain Last Admin: 03/06/19 09:14 Dose: 100 mls Insulin Human Lispro (Humalog) 0 units SC .MILD SLIDING SCALE PRN PRN Reason: Mild Correctional Scale Last Admin: 03/02/19 16:59 Dose: 6 unit Metoprolol Tartrate (Lopressor) 12.5 mg PO BID [facility] Last Admin: 03/06/19 09:36 Dose: 12.5 mg Multivitamins (Theragran) 1 tab PO DAILY [facility] Last Admin: 03/06/19 09:35 Dose: 1 tab Oxymetazoline HCl (Oxymetazoline Hcl) 0 sprays NASAL Q4H PRN PRN Reason: Epistaxis Pantoprazole Sodium (Protonix) 40 mg IVP DAILY [facility] Last Admin: 03/06/19 09:37 Dose: 40 mg Saccharomyces Boulardii (Florastor) 250 mg PO DAILY [facility] Last Admin: 03/06/19 09:35 Dose: 250 mg Sodium Chloride (Flush - Normal Saline) 10 ml IVF Q12HR [facility] Last Admin: 03/06/19 09:37 Dose: 10 ml Sodium Chloride (Flush - Normal Saline) 10 ml IVF PRN PRN PRN Reason: Saline Flush Sodium Chloride ([place] Nasal [place] 0.65%) 0 ml EA NARE TID [facility] Last Admin: 03/06/19 15:03 Dose: Not Given
[2019-03-06 17:24] LABS: Anion Gap 16 mmol/L (10-20); BUN (Urea Nitrogen) 41 mg/dL (9.8-20.1); Carbon Dioxide 19 mmol/L (23-31); Chloride 111 mmol/L (98-107); Potassium 3.9 mmol/L (3.5-5.1); Sodium 142 mmol/L (136-145)
[2019-03-06 17:25] LABS: Calc. Creatinine Clearance 26 mL/min (70-130); Calcium 8.6 mg/dL (7.8-10.44); Estimated GFR-MDRD 14; Glucose 103 mg/dL (80-115)
--- NOTE | 2019-03-06 20:33 | PDOC.GSPN ---
Surgery Progress Note: Subj - Subjective Narrative: Patient feels OK. Pain is a little better except when she gets up with PT. Diarrhea which she cannot control limits mobility also. Breathing fine, no nausea but not eating much due to pain. BP low normal and urine output poor. Creatinine still rising. No response to IVF, albumin or PRBCs. Nephrology ordered lasix today, feeling that worsening renal function is due to heart failure. Incisions look fine and other labs OK. A/P) Doing well from a surgical standpoint but with worsening renal failure, likely due to heart failure plus fluid shifts and hypoalbuminemia/malnutrition. Nephrology involved, but hemodialysis is felt likely to be necessary and it is unclear whether patient will tolerate this. Dr Schaffer plans to discuss with family and patient further. No new surgical recommendations. Surgery Progress Note: Obj - Vital signs Vital signs: Vital Signs - Most Recent Temp Pulse Resp BP Pulse Ox 97.5 F L 80 24 H 131/60 97 03/06/19 19:23 03/06/19 15:36 03/06/19 12:58 03/06/19 12:58 03/06/19 13:00 Surgery Progress Note: Results - Labs Result Diagrams: 03/06/19 03:46 03/06/19 13:32 Lab results: Laboratory Results - last 24 hr 03/05/19 03/06/19 03/06/19 20:09 00:20 03:46 WBC RBC Hgb Hct MCV MCH MCHC RDW Plt Count MPV Neutrophils % Lymphocytes % Monocytes % Eosinophils % Basophils % Neutrophils # Lymphocytes # Monocytes # Eosinophils # Basophils # Sodium 142 Potassium 3.9 Chloride 111 H Carbon Dioxide 19 L Anion Gap 16 BUN 41 H Creatinine 3.21 H Estimated GFR (MDRD) 14 Glucose 103 POC Glucose 113 H 120 H Calcium 8.6 03/06/19 03/06/19 03/06/19 03:46 05:16 11:46 WBC 14.3 H RBC 3.60 L Hgb 9.7 L Hct 31.9 L MCV 88.7 MCH 26.9 L MCHC 30.4 L RDW 16.5 H Plt Count 153 MPV 9.2 Neutrophils % 85.5 H Lymphocytes % 5.9 L Monocytes % 6.2 Eosinophils % 2.2 Basophils % 0.2 Neutrophils # 12.2 H Lymphocytes # 0.8 L Monocytes # 0.9 H Eosinophils # 0.3 Basophils # 0.0 Sodium Potassium Chloride Carbon Dioxide Anion Gap BUN Creatinine Estimated GFR (MDRD) Glucose POC Glucose 104 149 H Calcium 03/06/19 03/06/19 03/06/19 13:32 16:35 20:18 WBC RBC Hgb Hct MCV MCH MCHC RDW Plt Count MPV Neutrophils % Lymphocytes % Monocytes % Eosinophils % Basophils % Neutrophils # Lymphocytes # Monocytes # Eosinophils # Basophils # Sodium 140 Potassium 3.9 Chloride 109 H Carbon Dioxide 20 L Anion Gap 15 BUN 43 H Creatinine 3.29 H Estimated GFR (MDRD) 14 Glucose 145 H POC Glucose 129 H 131 H Calcium 8.6
[2019-03-07 07:51] LABS: ALT (SGPT) 25 U/L (8-55); AST (SGOT) 23 U/L (5-34); Albumin 2.9 g/dL (3.4-4.8); Alkaline Phosphatase 66 U/L (40-150); Anion Gap 12 mmol/L (10-20); BUN (Urea Nitrogen) 47 mg/dL (9.8-20.1); Bilirubin, Total 0.8 mg/dL (0.2-1.2); Calc. Creatinine Clearance 29 mL/min (70-130); Calcium 8.5 mg/dL (7.8-10.44); Carbon Dioxide 21 mmol/L (23-31); Chloride 111 mmol/L (98-107); Estimated GFR-MDRD 15; Globulin 2.6 g/dL (2.4-3.5); Glucose 118 mg/dL (80-115); Potassium 3.7 mmol/L (3.5-5.1); Protein, Total 5.5 g/dL (6.0-8.3); Sodium 140 mmol/L (136-145)
[2019-03-07] MEDS: Aspirin 81 mg Enteric Coated Tablet PO SCH (08:47)
[2019-03-07] MEDS: Cyanocobalamin (Vitamin B-12) 1,000 MCG TAB PO SCH (08:47)
[2019-03-07] MEDS: Folic Acid 1 MG TAB PO SCH (08:47)
[2019-03-07] MEDS: Heparin 5,000 UNITS/ML VIAL SC SCH ×2 (08:47→20:37)
[2019-03-07] MEDS: Multivit, Therapeutic 1 TAB PO SCH (08:48)
[2019-03-07] MEDS: Metoprolol Tartrate 25 MG TAB PO SCH ×2 (08:48→20:36)
[2019-03-07] MEDS: Insulin Glargine 10 UNITS in Pre-Filled Syringe 1 EACH SC SCH (08:48)
[2019-03-07] MEDS: Sodium Chloride 0.65% Nasal 44 ML BOT EA NARE SCH ×3 (08:49→20:59)
[2019-03-07] MEDS: Pantoprazole 40 MG VIAL IVP SCH (08:49)
[2019-03-07] MEDS: Saccharomyces boulardii 250 MG CAP PO SCH (08:49)
--- NOTE | 2019-03-07 09:05 | PRG ---
DATE OF SERVICE: 03/07/2019 SUBJECTIVE: The patient is in good spirits, had no acute complaints. OBJECTIVE: VITAL SIGNS: On exam, temperature is 97.0, pulse 71, blood pressure 159/62, and O2 saturation 97%. A 24-hour intake 1790, output 575. HEENT: Unremarkable. NECK: No JVD. LUNGS: Clear to auscultation. CARDIAC: S1 and S2, regular. ABDOMEN: Soft. EXTREMITIES: No edema. LABORATORY DATA: Sodium 140, potassium 3.7, chloride 111, CO2 of 21, BUN 47, creatinine 3.1, and glucose 118. ASSESSMENT: 1. Status post mechanical ventilation in the postop. 2. Coronary artery disease. 3. Colon cancer. 4. Chronic kidney disease. PLAN: Further disposition of the cancer per General Surgery. Pulmonary status is currently stable. We will continue to follow while she is in the IMCU, but in my opinion, she could probably be transferred to the surgical floor. Job ID: [id number]
[2019-03-07] MEDS ORDERED: HYDROcodone/Acetaminophen 10/325 mg Tablet PO PRN ×2 (11:29→11:30)
[2019-03-07] MEDS ORDERED: Fentanyl 100 MCG/2 ML VIAL SLOW IVP PRN (11:31)
--- NOTE | 2019-03-07 12:43 | PRG ---
DATE OF SERVICE: 03/07/2019 SUBJECTIVE: A 68-year-old female, being seen for acute kidney injury. The patient denies any nausea, vomiting, or chest pain. OBJECTIVE: CONSTITUTIONAL: The patient is awake and alert. VITAL SIGNS: Afebrile, pulse 75, breathing 16, blood pressure 172/81. GENERAL APPEARANCE AND MENTAL STATUS: Fair. HEAD/NECK: Normocephalic. Atraumatic. EYES: EOMI. No deformity. EARS: Clear. No ulcers. NOSE: Intact. No lesions. MOUTH: Clear. No discharge. THROAT: Clear. No exudate. LUNGS: Clear. No crackles. CARDIAC: S1, S2. No rub. ABDOMEN: Benign. Bowel sounds positive. GENITALIA/RECTUM: Rajan absent. BACK/EXTREMITIES: Edema 0+. NEUROLOGICAL: Alert and motor intact. SKIN: LYMPHATICS: LABORATORY DATA: Reviewed. ASSESSMENT AND RECOMMENDATIONS: 1. Acute kidney injury with chronic kidney disease, stage 4 due to cardiorenal syndrome. No indication for dialysis. 2. Hypertension, stable. 3. Anemia, stable. 4. Medication based on GFR, appropriate. 5. The patient has significant edema. We will recommend diuresis. Job ID: [id number]
[2019-03-07 14:10] VITALS: BMI 41.3
--- NOTE | 2019-03-07 17:17 | PDOC.GSPN ---
Surgery Progress Note: Subj - Subjective Narrative: Patient feels better overall today. Her pain is less. She is breathing well. She is passing gas and tolerating her clear liquid diet. Abdomen is soft and nondistended and minimally tender to palpation. Incisions look good. Her lungs sound clear anteriorly. Her BUN and creatinine have come down a little bit and her urine output was better yesterday after Lasix. Her blood pressure is back up into her normal range which is slightly elevated. Assessment/plan: Improving status post extended left hemicolectomy for near obstructing colon cancer. Severe heart failure responding to Lasix. Acute on chronic renal failure somewhat improved today. Okay from a surgical standpoint to transfer to the surgical floor. I'm going to advance her diet to full liquid and have written for some nutritional supplements as well. Dr. Carr is covering this weekend. I will be back on Sunday. Surgery Progress Note: Obj - Vital signs Vital signs: Vital Signs - Most Recent Temp Pulse Resp BP Pulse Ox 97.9 F 103 H 24 H 159/75 H 97 03/07/19 11:43 03/07/19 13:42 03/06/19 12:58 03/07/19 13:42 03/07/19 09:29 Surgery Progress Note: Results - Labs Result Diagrams: 03/06/19 03:46 03/07/19 06:55 Lab results: Laboratory Results - last 24 hr 03/07/19 03/07/19 03/07/19 05:54 06:55 10:30 Sodium 140 Potassium 3.7 Chloride 111 H Carbon Dioxide 21 L Anion Gap 12 BUN 47 H Creatinine 3.14 H Estimated GFR (MDRD) 15 Glucose 118 H POC Glucose 121 H 130 H Calcium 8.5 Total Bilirubin 0.8 AST 23 ALT 25 Alkaline Phosphatase 66 Serum Total Protein 5.5 L Albumin 2.9 L Globulin 2.6 Albumin/Globulin Ratio 1.1 L 03/07/19 16:10 Sodium Potassium Chloride Carbon Dioxide Anion Gap BUN Creatinine Estimated GFR (MDRD) Glucose POC Glucose 160 H Calcium Total Bilirubin AST ALT Alkaline Phosphatase Serum Total Protein Albumin Globulin Albumin/Globulin Ratio
[2019-03-07] MEDS ORDERED: Furosemide 40 MG/4 ML VIAL SLOW IVP SCH (17:30)
--- NOTE | 2019-03-07 17:50 | PDOC.PN ---
- Subjective Encounter Start Date: 03/07/19 Encounter Start Time: 14:45 Doing very well. Tolerating liquids. Seen in conjunction with Dr. Garcia. Advancing diet. - Objective Resuscitation Status - Order Detail: 02/28/19 03:00 Resuscitation Status Routine Resuscitation Status: FULL: Full Resuscitation Discussed with: patient Vital Signs & Weight: Vital Signs (12 hours) Temp Pulse Pulse BP BP Pulse Ox 03/07/19 13:42 103 H 110 H 159/75 H 130/100 H 03/07/19 11:43 97.9 F 03/07/19 09:29 97 03/07/19 08:00 98 03/07/19 07:45 98.0 F Weight Admit Weight 218 lb 2 oz Weight 240 lb 11.916 oz Most Recent Monitor Data Heart Rate from ECG 70 NIBP 125/62 NIBP BP-Mean 83 Respiration from ECG 21 SpO2 96 I&O: 03/06/19 03/07/19 03/08/19 06:59 06:59 06:59 Intake Total 2153 1790 Output Total 107 575 Balance 2046 1215 Result Diagrams: 03/06/19 03:46 03/07/19 06:55 Additional Labs: Accuchecks 03/07/19 03/07/19 03/07/19 16:10 10:30 05:54 POC Glucose 160 H 130 H 121 H 03/07/19 03/06/19 00:27 20:18 POC Glucose 134 H 131 H Phys Exam - Physical Examination Constitutional: NAD Respiratory: no wheezing, no rales, no rhonchi Cardiovascular: RRR, no significant murmur Gastrointestinal: soft, non-tender, no distention, positive bowel sounds 2+ pitting edema ble's. Psychiatric: normal affect Dx/Plan (1) Acute worsening of stage 4 chronic kidney disease Code(s): N18.4 - CHRONIC KIDNEY DISEASE, STAGE 4 (SEVERE) Status: Acute Comment: IV albumin today, follow electrolytes and creatinine (2) Colonic mass Code(s): K63.9 - DISEASE OF INTESTINE, UNSPECIFIED Status: Acute Comment: s/ p surgery (3) CAD (coronary artery disease) Code(s): I25.10 - ATHSCL HEART DISEASE OF [place] CORONARY ARTERY W/O ANG PCTRS Status: Chronic Comment: stable (4) Acute on chronic diastolic (congestive) heart failure Code(s): I50.33 - ACUTE ON CHRONIC DIASTOLIC (CONGESTIVE) HEART FAILURE Status : Acute Comment: Improved with Lasix, currently Lasix held secondary to renal function, continue to monitor clinically (5) Diabetes type 2, controlled Code(s): E11.9 - TYPE 2 DIABETES MELLITUS WITHOUT COMPLICATIONS Status: Chronic (6) Dyslipidemia Code(s): E78.5 - HYPERLIPIDEMIA, UNSPECIFIED Status: Chronic (7) Hypertension Code(s): I10 - ESSENTIAL (PRIMARY) HYPERTENSION Status: Chronic Qualifiers: Hypertension type: essential hypertension Qualified Code(s): I10 - Essential (primary) hypertension Comment: Continue Lisinopril and titrate to optimal response - Plan * Doing well. * Diet being advanced by surg. * Continuing diuresis. * Nephrology following. * Increase mobility. * Await path on surgical specimen. * Blood sugars are good.
[2019-03-07] MEDS: traMADol HCl 50 MG TAB PO PRN (22:05)
[2019-03-08] MEDS: Folic Acid 1 MG TAB PO SCH (09:12)
[2019-03-08] MEDS: Heparin 5,000 UNITS/ML VIAL SC SCH ×2 (09:12→20:28)
[2019-03-08] MEDS: Cyanocobalamin (Vitamin B-12) 1,000 MCG TAB PO SCH (09:12)
[2019-03-08] MEDS: Aspirin 81 mg Enteric Coated Tablet PO SCH (09:12)
[2019-03-08] MEDS: Metoprolol Tartrate 25 MG TAB PO SCH ×2 (09:13→20:28)
[2019-03-08] MEDS: Multivit, Therapeutic 1 TAB PO SCH (09:13)
[2019-03-08] MEDS: Insulin Glargine 10 UNITS in Pre-Filled Syringe 1 EACH SC SCH (09:13)
[2019-03-08] MEDS: Sodium Chloride 0.65% Nasal 44 ML BOT EA NARE SCH ×3 (09:14→20:39)
[2019-03-08] MEDS: Saccharomyces boulardii 250 MG CAP PO SCH (09:14)
[2019-03-08] MEDS: Pantoprazole 40 MG VIAL IVP SCH (09:14)
[2019-03-08] MEDS: HumaLOG 300 UNITS/3 ML VIAL SC PRN ×3 (10:37→21:10)
[2019-03-08 11:05] LABS: Anion Gap 11 mmol/L (10-20); BUN (Urea Nitrogen) 45 mg/dL (9.8-20.1); Calc. Creatinine Clearance 35 mL/min (70-130); Calcium 8.3 mg/dL (7.8-10.44); Carbon Dioxide 21 mmol/L (23-31); Chloride 111 mmol/L (98-107); Estimated GFR-MDRD 18; Glucose 203 mg/dL (80-115); Potassium 3.9 mmol/L (3.5-5.1); Sodium 139 mmol/L (136-145)
--- NOTE | 2019-03-08 11:34 | PRG ---
DATE OF SERVICE: 03/08/2019 SUBJECTIVE: A 68-year-old female, being seen for acute kidney injury. The patient denies any nausea, vomiting, or chest pain. OBJECTIVE: CONSTITUTIONAL: The patient is awake and alert. VITAL SIGNS: Pulse 60, breathing 16, and blood pressure 135/83. GENERAL APPEARANCE AND MENTAL STATUS: Fair. HEAD/NECK: Normocephalic. Atraumatic. EYES: EOMI. No deformity. EARS: Clear. No ulcers. NOSE: Intact. No lesions. MOUTH: Clear. No discharge. THROAT: Clear. No exudate. LUNGS: Clear. No crackles. CARDIAC: S1, S2. No rub. ABDOMEN: Benign. Bowel sounds positive. GENITALIA/RECTUM: Rajan absent. BACK/EXTREMITIES: Lower extremities have 4+ edema. NEUROLOGICAL: Alert and motor intact. SKIN: LYMPHATICS: LABORATORY DATA: Creatinine is pending. ASSESSMENT AND RECOMMENDATIONS: 1. Chronic kidney disease stage 4 with congestive heart failure. Continue Lasix. 2. Hypertension, stable. 3. Anemia, stable. 4. Colon cancer. Management per primary team. 5. Congestive heart failure; renal replacement therapy would be difficult. Job ID: [id number]
[2019-03-08] MEDS ORDERED: Furosemide 40 MG/4 ML VIAL SLOW IVP SCH (12:00)
--- NOTE | 2019-03-08 12:26 | PRG ---
DATE OF SERVICE: 03/08/2019 SERVICE: Pulmonary Medicine. INTERVAL HISTORY: The patient is doing fine from respiratory standpoint. Breathing comfortably. Denies any current chest pain, fevers, or chills. Tolerating p.o. No nausea or vomiting. She is passing gas. PHYSICAL EXAMINATION: VITAL SIGNS: Afebrile, pulse 66, blood pressure 135/83, respirations 10, saturation 99% on 2 L nasal cannula. On room air, she is 96%. HEENT: Normocephalic and atraumatic. Sclerae are white. Conjunctivae are pink. Oral mucosa is moist without lesions. LUNGS: Decent air entry. Crackles are present. No prolonged expiratory phase. HEART: Normal rate, regular. ABDOMEN: Soft, nontender, and nondistended. Bowel sounds are positive. MUSCULOSKELETAL: No cyanosis or clubbing. There is 3+ pitting in bilateral lower extremities. NEUROLOGIC: Grossly nonfocal. LABORATORY DATA: WBC 14.3, hemoglobin 9.7, and platelets 153,000. Creatinine 2.61 and downtrending nicely (baseline 1.8). Urinalysis is unremarkable. C difficile antigen and toxin are negative. Stool cultures are negative to date. ASSESSMENT: 1. Acute hypoxic respiratory failure, resolved. 2. Acute kidney injury on chronic kidney disease, stage 3, improving. 3. Adenocarcinoma of the colon with deep invasion, and lymph node involvement. 4. Coronary artery disease. DISCUSSION AND PLAN: We will initiate diuretics on a daily basis. The patient is significantly volume overloaded. I have told the patient about her new diagnosis of colon cancer. She knows to expect an oncologist at some point in the next 24 to 48 hours. I will continue to follow for the time being. Job ID: [id number]
[2019-03-08] MEDS: traMADol HCl 50 MG TAB PO PRN (12:41)
[2019-03-08] MEDS ORDERED: Acetaminophen 500 MG TAB PO PRN (13:43)
--- NOTE | 2019-03-08 14:41 | PRG ---
DATE OF SERVICE: 03/08/2019 SUBJECTIVE: Yanet Bruce is doing well. She is being moved from [facility] to the floor. OBJECTIVE: LUNGS: Clear to auscultation. CARDIAC: Regular rate and rhythm without murmur or gallop. ABDOMEN: Soft and nontender. Surgical wound looks good. LABORATORY DATA: Sodium 139, potassium 3.9, BUN 47, creatinine 2.61 down from 3.64 yesterday. GFR 18, improved. Hemoglobin 9.7, white count 14. Dr. Dillon and myself discussed pathology results with her, T3 N1b tumor. PLAN: 1. We will order a CEA level. Oncology consult has been requested, but I do not see any point in this. This could be postponed for an outpatient as there will be no chemotherapy discussions or intervention at this time. She needs to see oncologist as an outpatient. She can visit them with the family at later time. 2. Deconditioning. She will need rehab consult either in [place] or locally. Agree with transfer to the floor . Resume home medications. Job ID: [id number]
[2019-03-08] MEDS: Gabapentin 300 MG CAP PO SCH (20:28)
[2019-03-09 05:06] LABS: Hemoglobin 8.6 g/dL (12.0-16.0)
[2019-03-09 05:29] LABS: Anion Gap 10 mmol/L (10-20); BUN (Urea Nitrogen) 44 mg/dL (9.8-20.1); Calc. Creatinine Clearance 41 mL/min (70-130); Calcium 8.5 mg/dL (7.8-10.44); Carbon Dioxide 25 mmol/L (23-31); Chloride 113 mmol/L (98-107); Estimated GFR-MDRD 22; Glucose 134 mg/dL (80-115); Phosphorus 2.9 mg/dL (2.3-4.7); Potassium 3.7 mmol/L (3.5-5.1); Sodium 144 mmol/L (136-145)
[2019-03-09] MEDS ORDERED: Furosemide 40 MG/4 ML VIAL SLOW IVP SCH (06:00)
[2019-03-09] MEDS: Insulin Glargine 10 UNITS in Pre-Filled Syringe 1 EACH SC SCH (08:49)
[2019-03-09] MEDS: Folic Acid 1 MG TAB PO SCH (08:50)
[2019-03-09] MEDS: Metoprolol Tartrate 25 MG TAB PO SCH ×2 (08:50→20:45)
[2019-03-09] MEDS: Aspirin Chewable 81 MG TAB PO SCH (08:50)
[2019-03-09] MEDS: Saccharomyces boulardii 250 MG CAP PO SCH (08:50)
[2019-03-09] MEDS: Gabapentin 300 MG CAP PO SCH ×2 (08:50→20:45)
[2019-03-09] MEDS: Clopidogrel Bisulfate 75 MG TAB PO SCH (08:50)
[2019-03-09] MEDS: Furosemide 80 MG TAB PO SCH (08:50)
[2019-03-09] MEDS: Cyanocobalamin (Vitamin B-12) 1,000 MCG TAB PO SCH (08:50)
[2019-03-09] MEDS: Multivit, Therapeutic 1 TAB PO SCH (08:50)
[2019-03-09] MEDS: Lisinopril 20 MG TAB PO SCH (08:50)
[2019-03-09] MEDS: Heparin 5,000 UNITS/ML VIAL SC SCH ×2 (08:51→20:45)
--- NOTE | 2019-03-09 08:53 | PDOC.PN ---
- Subjective Encounter Start Date: 03/08/19 Encounter Start Time: 12:45 Subjective: pt up in chair denies any pain - Objective Resuscitation Status - Order Detail: 02/28/19 03:00 Resuscitation Status Routine Resuscitation Status: FULL: Full Resuscitation Discussed with: patient Vital Signs & Weight: Vital Signs (12 hours) Temp Pulse Resp BP Pulse Ox 03/09/19 07:27 98.1 F 59 L 16 145/76 H 99 03/09/19 04:10 97.9 F 63 16 130/73 99 03/09/19 00:00 98.2 F 69 16 147/79 H 98 Weight Admit Weight 218 lb 2 oz Weight 240 lb 11.916 oz Most Recent Monitor Data Heart Rate from ECG 67 NIBP 152/75 NIBP BP-Mean 100 Respiration from ECG 16 SpO2 95 I&O: 03/08/19 03/09/19 03/10/19 06:59 06:59 06:59 Intake Total 1328 700 Output Total 1125 100 Balance 203 600 Result Diagrams: 03/09/19 04:03 03/09/19 04:03 Additional Labs: Accuchecks 03/09/19 03/08/19 03/08/19 06:20 21:05 16:03 POC Glucose 136 H 164 H 167 H 03/08/19 03/08/19 10:30 06:28 POC Glucose 201 H 196 H Phys Exam - Physical Examination Neck: no nodes, no JVD, supple, full ROM Respiratory: no wheezing, no rales, no rhonchi, wheezing present, clear to auscultation bilateral Cardiovascular: RRR, no significant murmur, no rub, gallop, irregular Gastrointestinal: soft, non-tender, no distention, positive bowel sounds Dx/Plan (1) Acute worsening of stage 4 chronic kidney disease Code(s): N18.4 - CHRONIC KIDNEY DISEASE, STAGE 4 (SEVERE) Status: Acute Comment: IV albumin today, follow electrolytes and creatinine (2) Adenocarcinoma of colon Code(s): C18.9 - MALIGNANT NEOPLASM OF COLON, UNSPECIFIED Status: Acute (3) Colonic mass Code(s): K63.9 - DISEASE OF INTESTINE, UNSPECIFIED Status: Acute Comment: s/ p surgery (4) CAD (coronary artery disease) Code(s): I25.10 - ATHSCL HEART DISEASE OF [place] CORONARY ARTERY W/O ANG PCTRS Status: Chronic Comment: stable (5) Chronic kidney disease, stage 4 (severe) Code(s): N18.4 - CHRONIC KIDNEY DISEASE, STAGE 4 (SEVERE) Status: Chronic Comment: stable (6) Acute on chronic diastolic (congestive) heart failure Code(s): I50.33 - ACUTE ON CHRONIC DIASTOLIC (CONGESTIVE) HEART FAILURE Status : Acute Comment: Improved with Lasix, currently Lasix held secondary to renal function, continue to monitor clinically - Plan will continue iv lasix, will discontinue coleman -: pt to be transferred out of [facility]. -: pt and family notified about her pathology * . Review of Systems - Review of Systems Respiratory: negative: Cough, Dry, Shortness of Breath, Hemoptysis, SOB with Excertion, Pleuritic Pain, Sputum, Wheezing Cardiovascular: negative: chest pain, palpitations, orthopnea, paroxysmal nocturnal dyspnea, edema, light headedness, other Gastrointestinal: negative: Nausea, Vomiting, Abdominal Pain, Diarrhea, Constipation, Melena, Hematochezia, Other - Medications/Allergies Allergies/Adverse Reactions: Allergies Allergy/AdvReac Type Severity Reaction Status Date / Time allopurinol Allergy Severe BLISTERS Verified 02/28/19 02:37 ON HANDS Sulfa (Sulfonamide Allergy Intermediate ITCHING Verified 02/28/19 02:37 Antibiotics) Medications: Current Medications Acetaminophen (Tylenol) 1,000 mg PO Q6H PRN PRN Reason: Moderate to Severe Pain (6-10) Aspirin (Aspirin Chewable) 81 mg PO DAILY [facility] Last Admin: 03/09/19 08:50 Dose: 81 mg Clopidogrel Bisulfate (Plavix) 75 mg PO DAILY [facility] Last Admin: 03/09/19 08:50 Dose: 75 mg Colchicine (Colcrys) 0.3 mg PO Q14D@0900 [facility] Cyanocobalamin (Vitamin B-12) 1,000 mcg PO DAILY [facility] Last Admin: 03/09/19 08:50 Dose: 1,000 mcg Dextrose/Water (Dextrose 50%) 50 ml SLOW IVP PRN PRN PRN Reason: Hypoglycemia Last Admin: 02/28/19 04:48 Dose: 50 ml Diphenhydramine HCl (Benadryl) 25 mg IVP Q6H PRN PRN Reason: Itching Last Admin: 03/05/19 19:45 Dose: 25 mg Folic Acid (Folvite) 1 mg PO DAILY [facility] Last Admin: 03/09/19 08:50 Dose: 1 mg Furosemide (Lasix) 80 mg PO DAILY [facility] Last Admin: 03/09/19 08:50 Dose: 80 mg Furosemide (Lasix) 60 mg SLOW IVP 1600 [facility] Stop: 03/09/19 18:00 Gabapentin (Neurontin) 300 mg PO BID [facility] Last Admin: 03/09/19 08:50 Dose: 300 mg Glucagon (Glucagon) 1 mg IM PRN PRN PRN Reason: Hypoglycemia Heparin Sodium (Porcine) (Heparin) 5,000 units SC BID [facility] Last Admin: 03/09/19 08:51 Dose: 5,000 units Hydralazine HCl (Apresoline) 10 mg SLOW IVP Q4H PRN PRN Reason: SBP Greater Than 180 Last Admin: 03/03/19 23:15 Dose: 10 mg Dextrose/Water (D5w) 1,000 mls @ 0 mls/hr IV .Q0M PRN PRN Reason: Hypoglycemia Insulin Glargine 10 units/ (Miscellaneous Medication) 0.1 mls @ 0 mls/hr SC QAM [facility] Last Admin: 03/09/19 08:49 Dose: 0.1 mls Insulin Human Lispro (Humalog) 0 units SC .MILD SLIDING SCALE PRN PRN Reason: Mild Correctional Scale Last Admin: 03/09/19 11:52 Dose: 2 unit Lisinopril (Zestril) 20 mg PO DAILY [facility] Last Admin: 03/09/19 08:50 Dose: 20 mg Metoprolol Tartrate (Lopressor) 12.5 mg PO BID [facility] Last Admin: 03/09/19 08:50 Dose: 12.5 mg Multivitamins (Theragran) 1 tab PO DAILY [facility] Last Admin: 03/09/19 08:50 Dose: 1 tab Oxymetazoline HCl (Oxymetazoline Hcl) 0 sprays NASAL Q4H PRN PRN Reason: Epistaxis Pantoprazole Sodium (Protonix) 40 mg PO DAILY [facility] Last Admin: 03/09/19 08:50 Dose: 40 mg Saccharomyces Boulardii (Florastor) 250 mg PO DAILY [facility] Last Admin: 03/09/19 08:50 Dose: 250 mg Sodium Chloride (Flush - Normal Saline) 10 ml IVF Q12HR [facility] Last Admin: 03/09/19 09:00 Dose: 10 ml Sodium Chloride (Flush - Normal Saline) 10 ml IVF PRN PRN PRN Reason: Saline Flush Last Admin: 03/08/19 12:33 Dose: 10 ml Sodium Chloride ([place] Nasal [employer] 0.65%) 0 ml EA NARE TID PASCUAL Last Admin: 03/09/19 13:53 Dose: 1 spr Tramadol HCl (Ultram) 50 mg PO Q6H PRN PRN Reason: PAIN (2-4) Last Admin: 03/08/19 12:41 Dose: 50 mg Tramadol HCl (Ultram) 100 mg PO Q6H PRN PRN Reason: PAIN (5-10) Last Admin: 03/07/19 22:05 Dose: 100 mg
[2019-03-09] MEDS: Sodium Chloride 0.65% Nasal 44 ML BOT EA NARE SCH ×3 (08:59→20:46)
[2019-03-09] MEDS: HumaLOG 300 UNITS/3 ML VIAL SC PRN ×2 (11:52→20:46)
--- NOTE | 2019-03-09 12:20 | PRG ---
DATE OF SERVICE: 03/09/2019 SUBJECTIVE: A 68-year-old female, being seen for acute kidney injury. The patient denied any nausea, vomiting, or chest pain. OBJECTIVE: CONSTITUTIONAL: The patient is awake and alert. VITAL SIGNS: Afebrile, pulse 75, breathing 16, and blood pressure 130/73. GENERAL APPEARANCE AND MENTAL STATUS: Fair. HEAD/NECK: Normocephalic. Atraumatic. EYES: EOMI. No deformity. EARS: Clear. No ulcers. NOSE: Intact. No lesions. MOUTH: Clear. No discharge. THROAT: Clear. No exudate. LUNGS: Clear. No crackles. CARDIAC: S1, S2. No rub. ABDOMEN: Benign. Bowel sounds positive. GENITALIA/RECTUM: Rajan absent. BACK/EXTREMITIES: Edema 0+. NEUROLOGICAL: Alert and motor intact. SKIN: LYMPHATICS: LABORATORY DATA: Labs show hemoglobin 8.6 and creatinine 2.0. ASSESSMENT AND PLAN: 1. Acute kidney injury with acute tubular necrosis, improved. 2. Chronic kidney disease, stage 4, stable. 3. Congestive heart failure, stable. 4. Anemia, stable. 5. Overall prognosis is poor. Job ID: [id number]
[2019-03-09] MEDS ORDERED: Potassium Chloride 20 MEQ TAB PO SCH (12:45)
[2019-03-09] MEDS ORDERED: Magnesium 2 GM/50 ML 2 GM in Premix Bag 1 BAG IVPB SCH (12:45)
--- NOTE | 2019-03-09 12:54 | PRG ---
DATE OF SERVICE: 03/09/2019 SERVICE: Pulmonary Medicine. INTERVAL HISTORY: The patient is doing fine from respiratory standpoint. Breathing comfortably. Has no complaints of chest discomfort, nausea, or vomiting. She remains volume overloaded, otherwise. She is moved in the right direction, however. She indicates that her strength is much better. She remains fatigued, however. She carries a diagnosis of sleep apnea, but has been off her machine for several years. She thinks that maybe she should establish care with a sleep doctor. PHYSICAL EXAMINATION: VITAL SIGNS: Afebrile, pulse 66, blood pressure 134/93, respirations 16, saturation 94% on room air. GENERAL: The patient is awake and alert, in no apparent distress. LUNGS: Crackles are present. There is no prolonged expiratory phase or wheezing present. HEART: Normal rate, regular. ABDOMEN: Soft, nontender, and nondistended. Bowel sounds are positive. MUSCULOSKELETAL: No cyanosis or clubbing. There is diffuse 2 to 3+ pitting throughout. : No Rajan. NEUROLOGIC: Grossly nonfocal. LABORATORY DATA: Hemoglobin 8.6. Creatinine 2.21 and gently downtrending. BUN 44 and downtrending. Basic metabolic profile is otherwise unremarkable except for a chloride of 113. Magnesium 1.6, phosphorus 2.9. ASSESSMENT: 1. Acute hypoxic respiratory failure, resolved. 2. Acute kidney injury on chronic kidney disease 3, improving. 3. Adenocarcinoma of the colon with deep invasion and lymph node involvement. 4. Coronary artery disease. DISCUSSION AND PLAN: We will continue to diurese the patient until she returns to euvolemia. At this point, she has no further requirements for inpatient Pulmonary or Critical Care opinion, and I will sign off. Please call with additional questions or concerns through time. Job ID: [id number]
--- NOTE | 2019-03-09 15:10 | PDOC.PN ---
- Subjective Encounter Start Date: 03/09/19 Encounter Start Time: 10:30 Subjective: pt up in bed no complains - Objective Resuscitation Status - Order Detail: 02/28/19 03:00 Resuscitation Status Routine Resuscitation Status: FULL: Full Resuscitation Discussed with: patient Vital Signs & Weight: Vital Signs (12 hours) Temp Pulse Resp BP Pulse Ox 03/09/19 11:01 98.4 F 66 16 134/93 H 94 L 03/09/19 07:27 98.1 F 59 L 16 145/76 H 99 03/09/19 04:10 97.9 F 63 16 130/73 99 Weight Admit Weight 218 lb 2 oz Weight 240 lb 11.916 oz Most Recent Monitor Data Heart Rate from ECG 67 NIBP 152/75 NIBP BP-Mean 100 Respiration from ECG 16 SpO2 95 I&O: 03/08/19 03/09/19 03/10/19 06:59 06:59 06:59 Intake Total 1328 700 Output Total 1125 100 Balance 203 600 Result Diagrams: 03/09/19 04:03 03/09/19 04:03 Additional Labs: Accuchecks 03/09/19 03/09/19 03/08/19 11:01 06:20 21:05 POC Glucose 182 H 136 H 164 H 03/08/19 03/08/19 03/08/19 16:03 10:30 06:28 POC Glucose 167 H 201 H 196 H Phys Exam - Physical Examination Neck: no nodes, no JVD, supple, full ROM Respiratory: no wheezing, no rales, no rhonchi, wheezing present, clear to auscultation bilateral Cardiovascular: RRR, no significant murmur, no rub, gallop, irregular Gastrointestinal: soft, non-tender, no distention, positive bowel sounds Dx/Plan (1) Acute worsening of stage 4 chronic kidney disease Code(s): N18.4 - CHRONIC KIDNEY DISEASE, STAGE 4 (SEVERE) Status: Acute Comment: IV albumin today, follow electrolytes and creatinine (2) Colonic mass Code(s): K63.9 - DISEASE OF INTESTINE, UNSPECIFIED Status: Acute Comment: s/ p surgery (3) CAD (coronary artery disease) Code(s): I25.10 - ATHSCL HEART DISEASE OF [place] CORONARY ARTERY W/O ANG PCTRS Status: Chronic Comment: stable (4) Gout Code(s): M10.9 - GOUT, UNSPECIFIED Status: Chronic Comment: stable (5) Acute on chronic diastolic (congestive) heart failure Code(s): I50.33 - ACUTE ON CHRONIC DIASTOLIC (CONGESTIVE) HEART FAILURE Status : Acute Comment: Improved with Lasix, currently Lasix held secondary to renal function, continue to monitor clinically (6) Adenocarcinoma of colon Code(s): C18.9 - MALIGNANT NEOPLASM OF COLON, UNSPECIFIED Status: Acute - Plan pt's creatinine continues to improve. will continue lasix given her -: lower ext edema -: pt will need snf vs rehab. * . Review of Systems - Review of Systems Respiratory: negative: Cough, Dry, Shortness of Breath, Hemoptysis, SOB with Excertion, Pleuritic Pain, Sputum, Wheezing Cardiovascular: negative: chest pain, palpitations, orthopnea, paroxysmal nocturnal dyspnea, edema, light headedness, other Gastrointestinal: negative: Nausea, Vomiting, Abdominal Pain, Diarrhea, Constipation, Melena, Hematochezia, Other - Medications/Allergies Allergies/Adverse Reactions: Allergies Allergy/AdvReac Type Severity Reaction Status Date / Time allopurinol Allergy Severe BLISTERS Verified 02/28/19 02:37 ON HANDS Sulfa (Sulfonamide Allergy Intermediate ITCHING Verified 02/28/19 02:37 Antibiotics) Medications: Current Medications Acetaminophen (Tylenol) 1,000 mg PO Q6H PRN PRN Reason: Moderate to Severe Pain (6-10) Aspirin (Aspirin Chewable) 81 mg PO DAILY [facility] Last Admin: 03/09/19 08:50 Dose: 81 mg Clopidogrel Bisulfate (Plavix) 75 mg PO DAILY [facility] Last Admin: 03/09/19 08:50 Dose: 75 mg Colchicine (Colcrys) 0.3 mg PO Q14D@0900 [facility] Cyanocobalamin (Vitamin B-12) 1,000 mcg PO DAILY [facility] Last Admin: 03/09/19 08:50 Dose: 1,000 mcg Dextrose/Water (Dextrose 50%) 50 ml SLOW IVP PRN PRN PRN Reason: Hypoglycemia Last Admin: 02/28/19 04:48 Dose: 50 ml Diphenhydramine HCl (Benadryl) 25 mg IVP Q6H PRN PRN Reason: Itching Last Admin: 03/05/19 19:45 Dose: 25 mg Folic Acid (Folvite) 1 mg PO DAILY [facility] Last Admin: 03/09/19 08:50 Dose: 1 mg Furosemide (Lasix) 80 mg PO DAILY [facility] Last Admin: 03/09/19 08:50 Dose: 80 mg Furosemide (Lasix) 60 mg SLOW IVP 1600 [facility] Stop: 03/09/19 18:00 Gabapentin (Neurontin) 300 mg PO BID [facility] Last Admin: 03/09/19 08:50 Dose: 300 mg Glucagon (Glucagon) 1 mg IM PRN PRN PRN Reason: Hypoglycemia Heparin Sodium (Porcine) (Heparin) 5,000 units SC BID [facility] Last Admin: 03/09/19 08:51 Dose: 5,000 units Hydralazine HCl (Apresoline) 10 mg SLOW IVP Q4H PRN PRN Reason: SBP Greater Than 180 Last Admin: 03/03/19 23:15 Dose: 10 mg Dextrose/Water (D5w) 1,000 mls @ 0 mls/hr IV .Q0M PRN PRN Reason: Hypoglycemia Insulin Glargine 10 units/ (Miscellaneous Medication) 0.1 mls @ 0 mls/hr SC QAM [facility] Last Admin: 03/09/19 08:49 Dose: 0.1 mls Insulin Human Lispro (Humalog) 0 units SC .MILD SLIDING SCALE PRN PRN Reason: Mild Correctional Scale Last Admin: 03/09/19 11:52 Dose: 2 unit Lisinopril (Zestril) 20 mg PO DAILY [facility] Last Admin: 03/09/19 08:50 Dose: 20 mg Metoprolol Tartrate (Lopressor) 12.5 mg PO BID [facility] Last Admin: 03/09/19 08:50 Dose: 12.5 mg Multivitamins (Theragran) 1 tab PO DAILY [facility] Last Admin: 03/09/19 08:50 Dose: 1 tab Oxymetazoline HCl (Oxymetazoline Hcl) 0 sprays NASAL Q4H PRN PRN Reason: Epistaxis Pantoprazole Sodium (Protonix) 40 mg PO DAILY [facility] Last Admin: 03/09/19 08:50 Dose: 40 mg Saccharomyces Boulardii (Florastor) 250 mg PO DAILY [facility] Last Admin: 03/09/19 08:50 Dose: 250 mg Sodium Chloride (Flush - Normal Saline) 10 ml IVF Q12HR [facility] Last Admin: 03/09/19 09:00 Dose: 10 ml Sodium Chloride (Flush - Normal Saline) 10 ml IVF PRN PRN PRN Reason: Saline Flush Last Admin: 03/08/19 12:33 Dose: 10 ml Sodium Chloride ([place] Nasal [place] 0.65%) 0 ml EA NARE TID [facility]CU[facility] Last Admin: 03/09/19 13:53 Dose: 1 spr Tramadol HCl (Ultram) 50 mg PO Q6H PRN PRN Reason: PAIN (2-4) Last Admin: 03/08/19 12:41 Dose: 50 mg Tramadol HCl (Ultram) 100 mg PO Q6H PRN PRN Reason: PAIN (5-10) Last Admin: 03/07/19 22:05 Dose: 100 mg
--- NOTE | 2019-03-09 15:22 | PRG ---
DATE OF SERVICE: 03/09/2019 SUBJECTIVE: Yanet Bruce is in bed. She has been in bed most of the day. She is only set up for a few seconds. She normally ambulates with a walker, but has not been ambulating today. Dr. Dillon is seeing her and will see her as needed in the future. They are still diuresing her. She does has some residual edema. She is on diuretics. I have talked to the patient and her . I have talked to the patient's daughter today. Dr. Dillon has talked to the patient and her yesterday regarding the diagnosis of her colon cancer. CEA level is 2.28. She will need to see oncologist as an outpatient. There is no reason for an oncologist to visit her in the hospital. They will need to meet with the family at an oncologist office in 2 to 3 weeks, appointment can be established on discharge. The patient and family are agreeable and preferred that she goes to [facility] rehab at [facility] for a rehab. The patient was in [place]. She is currently having bowel movements and then tolerating her diet. All of her medications have been changed to oral. The patient is ready to be transferred to rehab at any time. She has severe deconditioning and we will consult rehab for screening tomorrow Sunday. OBJECTIVE: LUNGS: Clear to auscultation. CARDIAC: Rhythm without murmur or gallop. ABDOMEN: Soft, nontender. Surgical wounds look good. Good bowel sounds. EXTREMITIES: Unremarkable. LABORATORY DATA: Sodium 144, chloride 113, BUN 44, creatinine 2.21, GFR 32. White count 14 yesterday. Today, hemoglobin 8.6 and stable. ASSESSMENT AND PLAN: 1. Severe deconditioning to rehab. 2. Obesity. 3. Colon cancer. We will need Oncology followup as an outpatient, nothing to do at this time. 4. Chronic kidney disease, exacerbated, improving daily. Follow this. The patient is ready to go to rehab tomorrow. Job ID: [id number]
[2019-03-09] MEDS ORDERED: Furosemide 100 MG/10 ML VIAL SLOW IVP SCH (16:00)
[2019-03-10 04:56] LABS: Anion Gap 11 mmol/L (10-20); BUN (Urea Nitrogen) 43 mg/dL (9.8-20.1); Calc. Creatinine Clearance 47 mL/min (70-130); Calcium 8.3 mg/dL (7.8-10.44); Carbon Dioxide 25 mmol/L (23-31); Chloride 111 mmol/L (98-107); Estimated GFR-MDRD 26; Glucose 159 mg/dL (80-115); Potassium 3.9 mmol/L (3.5-5.1); Sodium 143 mmol/L (136-145)
[2019-03-10] MEDS: HumaLOG 300 UNITS/3 ML VIAL SC PRN ×2 (05:48→21:00)
[2019-03-10] MEDS: Clopidogrel Bisulfate 75 MG TAB PO SCH (08:24)
[2019-03-10] MEDS: Multivit, Therapeutic 1 TAB PO SCH (08:24)
[2019-03-10] MEDS: Sodium Chloride 0.65% Nasal 44 ML BOT EA NARE SCH ×3 (08:24→21:01)
[2019-03-10] MEDS: Insulin Glargine 10 UNITS in Pre-Filled Syringe 1 EACH SC SCH (08:24)
[2019-03-10] MEDS: Metoprolol Tartrate 25 MG TAB PO SCH ×2 (08:25→20:58)
[2019-03-10] MEDS: Lisinopril 20 MG TAB PO SCH (08:25)
[2019-03-10] MEDS: Saccharomyces boulardii 250 MG CAP PO SCH (08:25)
[2019-03-10] MEDS: Furosemide 80 MG TAB PO SCH (08:25)
[2019-03-10] MEDS: Cyanocobalamin (Vitamin B-12) 1,000 MCG TAB PO SCH (08:25)
[2019-03-10] MEDS: Aspirin Chewable 81 MG TAB PO SCH (08:25)
[2019-03-10] MEDS: Folic Acid 1 MG TAB PO SCH (08:26)
[2019-03-10] MEDS: Gabapentin 300 MG CAP PO SCH ×2 (08:26→20:58)
[2019-03-10] MEDS: Heparin 5,000 UNITS/ML VIAL SC SCH ×2 (08:33→21:01)
[2019-03-10] MEDS ORDERED: Colchicine 0.3 MG TAB PO SCH (09:00)
[2019-03-10] MEDS: traMADol HCl 50 MG TAB PO PRN (09:51)
[2019-03-10] MEDS ORDERED: hydrALAZINE 25 MG TAB PO SCH ×2 (12:13→12:15)
[2019-03-10] MEDS: Loperamide HCl 2 MG CAP PO PRN (14:27)
--- NOTE | 2019-03-10 17:35 | PDOC.PN ---
- Subjective Encounter Start Date: 03/10/19 Encounter Start Time: 10:30 Subjective: pt up in bed no complains - Objective Resuscitation Status - Order Detail: 02/28/19 03:00 Resuscitation Status Routine Resuscitation Status: FULL: Full Resuscitation Discussed with: patient Vital Signs & Weight: Vital Signs (12 hours) Temp Pulse Resp BP Pulse Ox 03/10/19 15:28 97.9 F 76 18 149/80 H 95 03/10/19 11:51 97.9 F 69 20 150/84 H 100 03/10/19 07:54 98.4 F 73 20 137/62 95 Weight Admit Weight 218 lb 2 oz Weight 240 lb 11.916 oz Most Recent Monitor Data Heart Rate from ECG 67 NIBP 152/75 NIBP BP-Mean 100 Respiration from ECG 16 SpO2 95 I&O: 03/09/19 03/10/19 03/11/19 06:59 06:59 06:59 Intake Total 700 1250 Output Total 100 Balance 600 1250 Result Diagrams: 03/09/19 04:03 03/10/19 04:01 Additional Labs: Accuchecks 03/10/19 03/10/19 03/10/19 15:30 11:05 05:39 POC Glucose 181 H 150 H 157 H 03/09/19 20:24 POC Glucose 160 H Phys Exam - Physical Examination Respiratory: no wheezing, no rales, no rhonchi, wheezing present, clear to auscultation bilateral Cardiovascular: RRR, no significant murmur, no rub, gallop, irregular Gastrointestinal: soft, non-tender, no distention, positive bowel sounds Musculoskeletal: no edema, pulses present, edema present Dx/Plan (1) Acute worsening of stage 4 chronic kidney disease Code(s): N18.4 - CHRONIC KIDNEY DISEASE, STAGE 4 (SEVERE) Status: Acute Comment: IV albumin today, follow electrolytes and creatinine (2) Adenocarcinoma of colon Code(s): C18.9 - MALIGNANT NEOPLASM OF COLON, UNSPECIFIED Status: Acute (3) Colonic mass Code(s): K63.9 - DISEASE OF INTESTINE, UNSPECIFIED Status: Acute Comment: s/ p surgery (4) CAD (coronary artery disease) Code(s): I25.10 - ATHSCL HEART DISEASE OF [place] CORONARY ARTERY W/O ANG PCTRS Status: Chronic Comment: stable (5) Chronic kidney disease, stage 4 (severe) Code(s): N18.4 - CHRONIC KIDNEY DISEASE, STAGE 4 (SEVERE) Status: Chronic Comment: stable (6) Acute on chronic diastolic (congestive) heart failure Code(s): I50.33 - ACUTE ON CHRONIC DIASTOLIC (CONGESTIVE) HEART FAILURE Status : Acute Comment: Improved with Lasix, currently Lasix held secondary to renal function, continue to monitor clinically - Plan pt having some diarrhea will add imodium -: Her creatinine is improving -: possible discharge to rehab -: pt is on oral lasix * . Review of Systems - Review of Systems Respiratory: negative: Cough, Dry, Shortness of Breath, Hemoptysis, SOB with Excertion, Pleuritic Pain, Sputum, Wheezing Cardiovascular: negative: chest pain, palpitations, orthopnea, paroxysmal nocturnal dyspnea, edema, light headedness, other Gastrointestinal: negative: Nausea, Vomiting, Abdominal Pain, Diarrhea, Constipation, Melena, Hematochezia, Other - Medications/Allergies Allergies/Adverse Reactions: Allergies Allergy/AdvReac Type Severity Reaction Status Date / Time allopurinol Allergy Severe BLISTERS Verified 02/28/19 02:37 ON HANDS Sulfa (Sulfonamide Allergy Intermediate ITCHING Verified 02/28/19 02:37 Antibiotics) Medications: Current Medications Acetaminophen (Tylenol) 1,000 mg PO Q6H PRN PRN Reason: Moderate to Severe Pain (6-10) Aspirin (Aspirin Chewable) 81 mg PO [facility]ILY [facility] Last Admin: 03/10/19 08:25 Dose: 81 mg Clopidogrel Bisulfate (Plavix) 75 mg PO DAILY [facility] Last Admin: 03/10/19 08:24 Dose: 75 mg Colchicine (Colcrys) 0.3 mg PO Q14D@0900 [facility] Last Admin: 03/10/19 08:26 Dose: Not Given Cyanocobalamin (Vitamin B-12) 1,000 mcg PO DAILY [facility] Last Admin: 03/10/19 08:25 Dose: 1,000 mcg Dextrose/Water (Dextrose 50%) 50 ml SLOW IVP PRN PRN PRN Reason: Hypoglycemia Last Admin: 02/28/19 04:48 Dose: 50 ml Diphenhydramine HCl (Benadryl) 25 mg IVP Q6H PRN PRN Reason: Itching Last Admin: 03/05/19 19:45 Dose: 25 mg Folic Acid (Folvite) 1 mg PO DAILY [facility] Last Admin: 03/10/19 08:26 Dose: 1 mg Furosemide (Lasix) 80 mg PO DAILY [facility] Last Admin: 03/10/19 08:25 Dose: 80 mg Gabapentin (Neurontin) 300 mg PO BID [facility] Last Admin: 03/10/19 08:26 Dose: 300 mg Glucagon (Glucagon) 1 mg IM PRN PRN PRN Reason: Hypoglycemia Heparin Sodium (Porcine) (Heparin) 5,000 units SC BID [facility] Last Admin: 03/10/19 08:33 Dose: 5,000 units Hydralazine HCl (Apresoline) 10 mg SLOW IVP Q4H PRN PRN Reason: SBP Greater Than 180 Last Admin: 03/03/19 23:15 Dose: 10 mg Hydralazine HCl (Apresoline) 25 mg PO BID [facility] Dextrose/Water (D5w) 1,000 mls @ 0 mls/hr IV .Q0M PRN PRN Reason: Hypoglycemia Insulin Glargine 10 units/ (Miscellaneous Medication) 0.1 mls @ 0 mls/hr SC QAM [facility] Last Admin: 03/10/19 08:24 Dose: 0.1 mls Insulin Human Lispro (Humalog) 0 units SC .MILD SLIDING SCALE PRN PRN Reason: Mild Correctional Scale Last Admin: 03/10/19 05:48 Dose: 2 unit Lisinopril (Zestril) 20 mg PO DAILY [facility] Last Admin: 03/10/19 08:25 Dose: 20 mg Loperamide HCl (Imodium) 1 mg PO Q8H PRN PRN Reason: Diarrhea/Loose Stools Last Admin: 03/10/19 14:27 Dose: 1 mg Metoprolol Tartrate (Lopressor) 12.5 mg PO BID [facility] Last Admin: 03/10/19 08:25 Dose: 12.5 mg Multivitamins (Theragran) 1 tab PO DAILY [facility] Last Admin: 03/10/19 08:24 Dose: 1 tab Oxymetazoline HCl (Oxymetazoline Hcl) 0 sprays NASAL Q4H PRN PRN Reason: Epistaxis Pantoprazole Sodium (Protonix) 40 mg PO DAILY [facility] Last Admin: 03/10/19 08:24 Dose: 40 mg Saccharomyces Boulardii (Florastor) 250 mg PO DAILY [facility] Last Admin: 03/10/19 08:25 Dose: 250 mg Sodium Chloride (Flush - Normal Saline) 10 ml IVF Q12HR [facility] Last Admin: 03/10/19 08:44 Dose: Not Given Sodium Chloride (Flush - Normal Saline) 10 ml IVF PRN PRN PRN Reason: Saline Flush Last Admin: 03/08/19 12:33 Dose: 10 ml Sodium Chloride ([place] Nasal [place] 0.65%) 0 ml EA NARE TID PASCUAL Last Admin: 03/10/19 14:28 Dose: Not Given Tramadol HCl (Ultram) 50 mg PO Q6H PRN PRN Reason: PAIN (2-4) Last Admin: 03/10/19 09:51 Dose: 50 mg Tramadol HCl (Ultram) 100 mg PO Q6H PRN PRN Reason: PAIN (5-10) Last Admin: 03/07/19 22:05 Dose: 100 mg
[2019-03-10] MEDS: hydrALAZINE 25 MG TAB PO SCH (20:58)
--- NOTE | 2019-03-10 22:53 | PRG ---
DATE OF SERVICE: 03/10/2019 SUBJECTIVE: Patient was seen and examined at bedside and overnight events noted. Patient denies any shortness of breath or chest pain or palpitation. No history of nausea or vomiting or diarrhea or fever or chills or cramps. OBJECTIVE: GENERAL: This is a well-built female, in no apparent distress. VITAL SIGNS: Temperature 98.4 . Heart rate . Respiratory rate . Blood pressure . HEENT: Atraumatic, normocephalic. Oral mucosa is moist NECK: Supple. CARDIOVASCULAR: S1, S2 heard. Rate and rhythm regular. RESPIRATORY: Clear to auscultation. GASTROINTESTINAL: Abdomen is soft. MUSCULOSKELETAL: No tenderness. No edema. DERMATOLOGIC: No skin rash. NEUROLOGIC: Alert and awake and oriented X3. No focal neurologic deficits. Moving all the extremities. PSYCHIATRIC: Mood and affect normal. LABORATORY DATA: Potassium is 3.9, BUN is 43, and creatinine is 1.9. ASSESSMENT AND PLAN: 1. Acute kidney injury on chronic kidney disease stage 4 with improvement in the creatinine, creatinine down to 1.9 from 3.2 and currently on Lasix 80 mg p.o. daily. Continue on current dose and we will monitor. Limit fluid and salt intake. 2. Edema, better. 3. Cardiorenal syndrome. 4. Anemia of chronic disease. 5. Hypertension, stable. Creatinine better with diuresis. We will continue close monitoring. Avoid nephrotoxins. We will follow. Job ID: [id number]
[2019-03-11] MEDS: HumaLOG 300 UNITS/3 ML VIAL SC PRN ×3 (05:38→22:06)
[2019-03-11 07:27] LABS: Anion Gap 11 mmol/L (10-20); BUN (Urea Nitrogen) 43 mg/dL (9.8-20.1); Calc. Creatinine Clearance 47 mL/min (70-130); Carbon Dioxide 24 mmol/L (23-31); Chloride 110 mmol/L (98-107); Estimated GFR-MDRD 26; Glucose 198 mg/dL (80-115); Potassium 3.8 mmol/L (3.5-5.1); Sodium 141 mmol/L (136-145)
[2019-03-11 08:08] LABS: Band 1 % (5-11); Eosinophils 2 % (0-10); Lymphocytes 15 % (21-51); MDiff Complete? YES; Mean Corpuscular HGB CONC 31.6 g/dL (32.0-36.0); Mean Corpuscular Hemoglobin 27.5 pg (27.0-31.0); Mean Platelet Volume 10.5 fL (7.4-10.4); Monocytes 9 % (0-10); Neutrophil 73 % (42-75); Platelet Count 104 thou/uL (130-400); Platelet Morphology Comment Appears Decreased; Polychromasia SLIGHT = 2-3 cells (100X) (0-2/hpf); RBC Distribution Width 16.9 % (11.5-14.5); Red Blood Cell (RBC) Count 3.28 mill/uL (4.20-5.40); White Blood Cell (WBC) Count 5.8 thou/uL (4.8-10.8)
[2019-03-11] MEDS: Sodium Chloride 0.65% Nasal 44 ML BOT EA NARE SCH ×3 (09:15→20:25)
[2019-03-11] MEDS: Insulin Glargine 10 UNITS in Pre-Filled Syringe 1 EACH SC SCH (09:15)
[2019-03-11] MEDS: Heparin 5,000 UNITS/ML VIAL SC SCH ×2 (09:16→20:22)
[2019-03-11] MEDS: Metoprolol Tartrate 25 MG TAB PO SCH ×2 (09:16→20:23)
[2019-03-11] MEDS: Clopidogrel Bisulfate 75 MG TAB PO SCH (09:16)
[2019-03-11] MEDS: Multivit, Therapeutic 1 TAB PO SCH (09:17)
[2019-03-11] MEDS: Furosemide 80 MG TAB PO SCH (09:17)
[2019-03-11] MEDS: Folic Acid 1 MG TAB PO SCH (09:18)
[2019-03-11] MEDS: Gabapentin 300 MG CAP PO SCH ×2 (09:18→20:21)
[2019-03-11] MEDS: hydrALAZINE 25 MG TAB PO SCH ×2 (09:18→20:22)
[2019-03-11] MEDS: Cyanocobalamin (Vitamin B-12) 1,000 MCG TAB PO SCH (09:18)
[2019-03-11] MEDS: Aspirin Chewable 81 MG TAB PO SCH (09:18)
[2019-03-11] MEDS: Saccharomyces boulardii 250 MG CAP PO SCH (09:18)
--- NOTE | 2019-03-11 12:57 | PDOC.PN ---
- Subjective Encounter Start Date: 03/11/19 Encounter Start Time: 10:15 Subjective: pt up in bed no complains - Objective Resuscitation Status - Order Detail: 02/28/19 03:00 Resuscitation Status Routine Resuscitation Status: FULL: Full Resuscitation Discussed with: patient Vital Signs & Weight: Vital Signs (12 hours) Temp Pulse Resp BP BP Pulse Ox 03/11/19 11:55 99.5 F 73 18 126/78 100 03/11/19 09:18 72 130/75 03/11/19 08:47 98.4 F 03/11/19 08:07 100.6 F H 72 16 130/75 99 03/11/19 04:00 99.3 F 71 24 H 126/62 96 Weight Admit Weight 218 lb 2 oz Weight 240 lb 11.916 oz Most Recent Monitor Data Heart Rate from ECG 67 NIBP 152/75 NIBP BP-Mean 100 Respiration from ECG 16 SpO2 95 I&O: 03/10/19 03/11/19 03/12/19 06:59 06:59 06:59 Intake Total 1250 1150 Balance 1250 1150 Result Diagrams: 03/11/19 06:43 03/11/19 06:43 Additional Labs: Accuchecks 03/11/19 03/11/19 03/10/19 10:43 05:27 20:59 POC Glucose 262 H 191 H 209 H 03/10/19 15:30 POC Glucose 181 H Phys Exam - Physical Examination Neck: no nodes, no JVD, supple, full ROM Respiratory: no wheezing, no rales, no rhonchi, wheezing present, clear to auscultation bilateral Cardiovascular: RRR, no significant murmur, no rub, gallop, irregular Gastrointestinal: soft, non-tender, no distention, positive bowel sounds Musculoskeletal: no edema, pulses present, edema present Dx/Plan (1) Acute worsening of stage 4 chronic kidney disease Code(s): N18.4 - CHRONIC KIDNEY DISEASE, STAGE 4 (SEVERE) Status: Acute Comment: IV albumin today, follow electrolytes and creatinine (2) Adenocarcinoma of colon Code(s): C18.9 - MALIGNANT NEOPLASM OF COLON, UNSPECIFIED Status: Acute (3) Colonic mass Code(s): K63.9 - DISEASE OF INTESTINE, UNSPECIFIED Status: Acute Comment: s/ p surgery (4) CAD (coronary artery disease) Code(s): I25.10 - ATHSCL HEART DISEASE OF [place] CORONARY ARTERY W/O ANG PCTRS Status: Chronic Comment: stable (5) Chronic kidney disease, stage 4 (severe) Code(s): N18.4 - CHRONIC KIDNEY DISEASE, STAGE 4 (SEVERE) Status: Chronic Comment: stable (6) Acute on chronic diastolic (congestive) heart failure Code(s): I50.33 - ACUTE ON CHRONIC DIASTOLIC (CONGESTIVE) HEART FAILURE Status : Acute Comment: Improved with Lasix, currently Lasix held secondary to renal function, continue to monitor clinically - Plan pt and family wants to go to inpatient rehab -: waiting for approval, avoidable days -: medically she is table. Her diarrhea has improved and her -: renal function is improving * . Review of Systems - Review of Systems Respiratory: negative: Cough, Dry, Shortness of Breath, Hemoptysis, SOB with Excertion, Pleuritic Pain, Sputum, Wheezing Cardiovascular: negative: chest pain, palpitations, orthopnea, paroxysmal nocturnal dyspnea, edema, light headedness, other Gastrointestinal: negative: Nausea, Vomiting, Abdominal Pain, Diarrhea, Constipation, Melena, Hematochezia, Other - Medications/Allergies Allergies/Adverse Reactions: Allergies Allergy/AdvReac Type Severity Reaction Status Date / Time allopurinol Allergy Severe BLISTERS Verified 02/28/19 02:37 ON HANDS Sulfa (Sulfonamide Allergy Intermediate ITCHING Verified 02/28/19 02:37 Antibiotics) Medications: Current Medications Acetaminophen (Tylenol) 1,000 mg PO Q6H PRN PRN Reason: Moderate to Severe Pain (6-10) Aspirin (Aspirin Chewable) [address] [facility] Last Admin: 03/11/19 09:18 Dose: 81 mg Clopidogrel Bisulfate (Plavix) [address] [facility] Last Admin: 03/11/19 09:16 Dose: 75 mg Colchicine (Colcrys) 0.3 mg PO Q14D@0900 [facility] Last Admin: 03/10/19 08:26 Dose: Not Given Cyanocobalamin (Vitamin B-12) 1,[address] [facility] Last Admin: 03/11/19 09:18 Dose: 1,000 mcg Dextrose/Water (Dextrose 50%) 50 ml SLOW IVP PRN PRN PRN Reason: Hypoglycemia Last Admin: 02/28/19 04:48 Dose: 50 ml Diphenhydramine HCl (Benadryl) 25 mg IVP Q6H PRN PRN Reason: Itching Last Admin: 03/05/19 19:45 Dose: 25 mg Folic Acid (Folvite) [address] [facility] Last Admin: 03/11/19 09:18 Dose: 1 mg Furosemide (Lasix) [address] [facility] Last Admin: 03/11/19 09:17 Dose: 80 mg Gabapentin (Neurontin) [address] [facility] Last Admin: 03/11/19 09:18 Dose: 300 mg Glucagon (Glucagon) 1 mg IM PRN PRN PRN Reason: Hypoglycemia Heparin Sodium (Porcine) (Heparin) 5,[address] [facility] Last Admin: 03/11/19 09:16 Dose: 5,000 units Hydralazine HCl (Apresoline) 10 mg SLOW IVP Q4H PRN PRN Reason: SBP Greater Than 180 Last Admin: 03/03/19 23:15 Dose: 10 mg Hydralazine HCl (Apresoline) [address] [facility] Last Admin: 03/11/19 09:18 Dose: 25 mg Dextrose/Water (D5w) 1,000 mls @ 0 mls/hr IV .Q0M PRN PRN Reason: Hypoglycemia Insulin Glargine 10 units/ (Miscellaneous Medication) 0.1 mls @ 0 mls/hr SC QAM [facility] Last Admin: 03/11/19 09:15 Dose: 0.1 mls Insulin Human Lispro (Humalog) 0 units SC .MILD SLIDING SCALE PRN PRN Reason: Mild Correctional Scale Last Admin: 03/11/19 05:38 Dose: 2 unit Lisinopril (Zestril) [address] [facility] Last Admin: 03/10/19 08:25 Dose: 20 mg Loperamide HCl (Imodium) 1 mg PO Q8H PRN PRN Reason: Diarrhea/Loose Stools Last Admin: 03/10/19 14:27 Dose: 1 mg Metoprolol Tartrate (Lopressor) 12.[address] [facility] Last Admin: 03/11/19 09:16 Dose: 12.5 mg Multivitamins (Theragran) [address] [facility] Last Admin: 03/11/19 09:17 Dose: 1 tab Oxymetazoline HCl (Oxymetazoline Hcl) 0 sprays NASAL Q4H PRN PRN Reason: Epistaxis Pantoprazole Sodium (Protonix) [address] [facility] Last Admin: 03/11/19 09:18 Dose: 40 mg Saccharomyces Boulardii (Florastor) [address] [facility] Last Admin: 03/11/19 09:18 Dose: 250 mg Sodium Chloride (Flush - Normal Saline) [address] [facility] Last Admin: 03/11/19 09:20 Dose: 10 ml Sodium Chloride (Flush - Normal Saline) 10 ml IVF PRN PRN PRN Reason: Saline Flush Last Admin: 03/08/19 12:33 Dose: 10 ml Sodium Chloride ([place] Nasal [place] 0.65%) [address] [facility] Last Admin: 03/11/19 09:15 Dose: 1 spr Tramadol HCl (Ultram) 50 mg PO Q6H PRN PRN Reason: PAIN (2-4) Last Admin: 03/10/19 09:51 Dose: 50 mg Tramadol HCl (Ultram) 100 mg PO Q6H PRN PRN Reason: PAIN (5-10) Last Admin: 03/07/19 22:05 Dose: 100 mg
--- NOTE | 2019-03-11 13:50 | PRG ---
DATE OF SERVICE: 03/11/2019 SUBJECTIVE: Patient was seen and examined at bedside and overnight events noted. Patient denies any shortness of breath or chest pain or palpitation. No history of nausea or vomiting or diarrhea or fever or chills or cramps. OBJECTIVE: GENERAL: This is a well-built female, in no apparent distress. VITAL SIGNS: Temperature 99.5. Heart rate 73. Respiratory rate 18. Blood pressure 126/78. HEENT: Atraumatic, normocephalic. Oral mucosa is moist NECK: Supple. CARDIOVASCULAR: S1, S2 heard. Rate and rhythm regular. RESPIRATORY: Clear to auscultation. GASTROINTESTINAL: Abdomen is soft. MUSCULOSKELETAL: +2 edema. DERMATOLOGIC: No skin rash. NEUROLOGIC: Alert and awake and oriented X3. No focal neurologic deficits. Moving all the extremities. PSYCHIATRIC: Mood and affect normal. LABORATORY DATA: Potassium is 3.8, BUN is 43, creatinine is 1.9. ASSESSMENT AND PLAN: 1. Acute kidney injury on chronic kidney disease, stage 4, stable. 2. Edema. Continue Lasix. 3. Cardiorenal syndrome. 4. Anemia. 5. Hypertension. Renal function seems to be stable on Lasix. Monitor closely. Limit fluid and salt intake. Job ID: [id number]
[2019-03-11] MEDS: traMADol HCl 50 MG TAB PO PRN (15:26)
--- NOTE | 2019-03-11 18:05 | PDOC.GSPN ---
Surgery Progress Note: Subj - Subjective Narrative: Patient is feeling better today but still very tired. Her family member tells me that she is not eating very much and only taking a few sips of her supplements. She denies nausea or vomiting or significant pain. She hasn't had any diarrhea since yesterday. Abdomen is soft and nondistended with minimal lower abdominal tenderness. Incisions look good. Vitals are okay except for a low-grade fever earlier today, but the patient states that her temperature was taken right after she drank some hot chocolate; on the recheck it was better. Assessment/plan: doing well from a surgical standpoint and ready for discharge to inpatient rehabilitation ideally, pending insurance approval. Her family does not feel that they can manage her at home currently. I have spoken with the nurse about trying to find a supplement that she tolerates better. I also encouraged her to use her incentive spirometer and to cough. Her lungs sound clear but her inspiratory effort is poor. She is only pulling 750 on the incentive spirometer. She is going to follow up with oncology as an outpatient. Surgery Progress Note: Obj - Vital signs Vital signs: Vital Signs - Most Recent Temp Pulse Resp BP Pulse Ox 98.1 F 72 18 147/83 H 100 03/11/19 16:07 03/11/19 16:07 03/11/19 16:07 03/11/19 16:07 03/11/19 16:07 Surgery Progress Note: Results - Labs Result Diagrams: 03/11/19 06:43 03/11/19 06:43 Lab results: Laboratory Results - last 24 hr 03/10/19 03/11/19 03/11/19 20:59 06:43 06:43 WBC 5.8 RBC 3.28 L Hgb 9.0 L Hct 28.5 L MCV 87.0 MCH 27.5 MCHC 31.6 L RDW 16.9 H Plt Count 104 L MPV 10.5 H Neutrophils % (Manual) 73 Band Neuts % (Manual) 1 L Lymphocytes % (Manual) 15 L Monocytes % (Manual) 9 Eosinophils % (Manual) 2 Plt Morphology Comment Appears Decreased L Polychromasia SLIGHT = 2-3 cells Sodium 141 Potassium 3.8 Chloride 110 H Carbon Dioxide 24 Anion Gap 11 BUN 43 H Creatinine 1.90 H Estimated GFR (MDRD) 26 Glucose 198 H POC Glucose 209 H Calcium 8.0 03/11/19 03/11/19 10:43 15:57 WBC RBC Hgb Hct MCV MCH MCHC RDW Plt Count MPV Neutrophils % (Manual) Band Neuts % (Manual) Lymphocytes % (Manual) Monocytes % (Manual) Eosinophils % (Manual) Plt Morphology Comment Polychromasia Sodium Potassium Chloride Carbon Dioxide Anion Gap BUN Creatinine Estimated GFR (MDRD) Glucose POC Glucose 262 H 315 H Calcium
[2019-03-12] MEDS: HumaLOG 300 UNITS/3 ML VIAL SC PRN ×4 (06:39→22:36)
[2019-03-12] MEDS: Cyanocobalamin (Vitamin B-12) 1,000 MCG TAB PO SCH (08:54)
[2019-03-12] MEDS: Folic Acid 1 MG TAB PO SCH (08:54)
[2019-03-12] MEDS: Furosemide 80 MG TAB PO SCH (08:54)
[2019-03-12] MEDS: Aspirin Chewable 81 MG TAB PO SCH (08:54)
[2019-03-12] MEDS: Gabapentin 300 MG CAP PO SCH ×2 (08:54→22:35)
[2019-03-12] MEDS: Clopidogrel Bisulfate 75 MG TAB PO SCH (08:54)
[2019-03-12] MEDS: Saccharomyces boulardii 250 MG CAP PO SCH (08:55)
[2019-03-12] MEDS: Metoprolol Tartrate 25 MG TAB PO SCH ×2 (08:55→22:35)
[2019-03-12] MEDS: Heparin 5,000 UNITS/ML VIAL SC SCH ×2 (08:55→22:35)
[2019-03-12] MEDS: Multivit, Therapeutic 1 TAB PO SCH (08:55)
[2019-03-12] MEDS: Sodium Chloride 0.65% Nasal 44 ML BOT EA NARE SCH ×3 (08:56→22:35)
[2019-03-12] MEDS: hydrALAZINE 25 MG TAB PO SCH ×2 (08:56→22:34)
[2019-03-12] MEDS: Insulin Glargine 15 UNITS in Pre-Filled Syringe 1 EACH SC SCH (09:42)
--- NOTE | 2019-03-12 10:32 | PRG ---
DATE OF SERVICE: 03/12/2019 SUBJECTIVE: Patient was seen and examined at bedside and overnight events noted. Patient denies any shortness of breath or chest pain or palpitation. No history of nausea or vomiting or diarrhea or fever or chills or cramps. OBJECTIVE: GENERAL: This is a well-built female, in no apparent distress. VITAL SIGNS: Temperature 98.4. Heart rate 68. Respiratory rate 18. Blood pressure 108/66. HEENT: Atraumatic, normocephalic. Oral mucosa is moist NECK: Supple. CARDIOVASCULAR: S1, S2 heard. Rate and rhythm regular. RESPIRATORY: Clear to auscultation. GASTROINTESTINAL: Abdomen is soft. MUSCULOSKELETAL: No tenderness. No edema. DERMATOLOGIC: No skin rash. NEUROLOGIC: Alert and awake and oriented X3. No focal neurologic deficits. Moving all the extremities. PSYCHIATRIC: Mood and affect normal. LABORATORY DATA: Not done today. ASSESSMENT AND PLAN: 1. Acute kidney injury on chronic kidney disease stage 4. Recheck labs. 2. Edema. We will increase Lasix to 40 IV b.i.d. Limit fluid and salt intake. 3. Cardiorenal syndrome. 4. Anemia. Chronic. 5. Hypertension. Stable. 6. We will increase Lasix and monitor labs. Job ID: [id number]
[2019-03-12] MEDS: traMADol HCl 50 MG TAB PO PRN (10:51)
[2019-03-12] MEDS: Furosemide 40 MG/4 ML VIAL SLOW IVP SCH (13:43)
--- NOTE | 2019-03-12 22:40 | PDOC.PN ---
- Subjective Encounter Start Date: 03/12/19 Encounter Start Time: 17:00 Subjective: pt up in bed no complains - Objective Resuscitation Status - Order Detail: 02/28/19 03:00 Resuscitation Status Routine Resuscitation Status: FULL: Full Resuscitation Discussed with: patient Vital Signs & Weight: Vital Signs (12 hours) Temp Pulse Resp BP Pulse Ox 03/12/19 21:19 98.3 F 72 16 147/66 H 95 03/12/19 16:00 98.0 F 68 20 148/84 H 99 03/12/19 11:14 97.8 F 67 22 H 141/66 H 96 Weight Admit Weight 218 lb 2 oz Weight 240 lb 11.916 oz Most Recent Monitor Data Heart Rate from ECG 67 NIBP 152/75 NIBP BP-Mean 100 Respiration from ECG 16 SpO2 95 I&O: 03/11/19 03/12/19 03/13/19 06:59 06:59 06:59 Intake Total 1150 240 Balance 1150 240 Result Diagrams: 03/11/19 06:43 03/11/19 06:43 Additional Labs: Accuchecks 03/12/19 03/12/19 03/12/19 22:17 16:05 11:18 POC Glucose 171 H 197 H 172 H 03/12/19 05:42 POC Glucose 204 H Phys Exam - Physical Examination Neck: no nodes, no JVD, supple, full ROM Respiratory: no wheezing, no rales, no rhonchi, wheezing present, clear to auscultation bilateral Cardiovascular: RRR, no significant murmur, no rub, gallop, irregular Gastrointestinal: soft, non-tender, no distention, positive bowel sounds Dx/Plan (1) Acute worsening of stage 4 chronic kidney disease Code(s): N18.4 - CHRONIC KIDNEY DISEASE, STAGE 4 (SEVERE) Status: Acute Comment: IV albumin today, follow electrolytes and creatinine (2) Adenocarcinoma of colon Code(s): C18.9 - MALIGNANT NEOPLASM OF COLON, UNSPECIFIED Status: Acute (3) Colonic mass Code(s): K63.9 - DISEASE OF INTESTINE, UNSPECIFIED Status: Acute Comment: s/ p surgery (4) CAD (coronary artery disease) Code(s): I25.10 - ATHSCL HEART DISEASE OF [place] CORONARY ARTERY W/O ANG PCTRS Status: Chronic Comment: stable (5) Chronic kidney disease, stage 4 (severe) Code(s): N18.4 - CHRONIC KIDNEY DISEASE, STAGE 4 (SEVERE) Status: Chronic Comment: stable (6) Acute on chronic diastolic (congestive) heart failure Code(s): I50.33 - ACUTE ON CHRONIC DIASTOLIC (CONGESTIVE) HEART FAILURE Status : Acute Comment: Improved with Lasix, currently Lasix held secondary to renal function, continue to monitor clinically - Plan pt doing well, will check labs in am -: peer to peer done and denied inpatient rehab -: will ask case managment for snf placement. * . Review of Systems - Review of Systems Respiratory: negative: Cough, Dry, Shortness of Breath, Hemoptysis, SOB with Excertion, Pleuritic Pain, Sputum, Wheezing Cardiovascular: negative: chest pain, palpitations, orthopnea, paroxysmal nocturnal dyspnea, edema, light headedness, other - Medications/Allergies Allergies/Adverse Reactions: Allergies Allergy/AdvReac Type Severity Reaction Status Date / Time allopurinol Allergy Severe BLISTERS Verified 02/28/19 02:37 ON HANDS Sulfa (Sulfonamide Allergy Intermediate ITCHING Verified 02/28/19 02:37 Antibiotics) Medications: Current Medications Acetaminophen (Tylenol) 1,000 mg PO Q6H PRN PRN Reason: Moderate to Severe Pain (6-10) Aspirin (Aspirin Chewable) 81 mg PO DAILY [facility] Last Admin: 03/12/19 08:54 Dose: 81 mg Clopidogrel Bisulfate (Plavix) 75 mg PO DAILY [facility] Last Admin: 03/12/19 08:54 Dose: 75 mg Colchicine (Colcrys) 0.3 mg PO Q14D@0900 [facility] Last Admin: 03/10/19 08:26 Dose: Not Given Cyanocobalamin (Vitamin B-12) 1,000 mcg PO DAILY [facility] Last Admin: 03/12/19 08:54 Dose: 1,000 mcg Dextrose/Water (Dextrose 50%) 50 ml SLOW IVP PRN PRN PRN Reason: Hypoglycemia Last Admin: 02/28/19 04:48 Dose: 50 ml Diphenhydramine HCl (Benadryl) 25 mg IVP Q6H PRN PRN Reason: Itching Last Admin: 03/05/19 19:45 Dose: 25 mg Folic Acid (Folvite) 1 mg PO DAILY [facility] Last Admin: 03/12/19 08:54 Dose: 1 mg Furosemide (Lasix) 40 mg SLOW IVP 0600,1400 [facility] Last Admin: 03/12/19 13:43 Dose: 40 mg Gabapentin (Neurontin) 300 mg PO BID [facility] Last Admin: 03/12/19 08:54 Dose: 300 mg Glucagon (Glucagon) 1 mg IM PRN PRN PRN Reason: Hypoglycemia Heparin Sodium (Porcine) (Heparin) 5,000 units SC BID [facility] Last Admin: 03/12/19 08:55 Dose: 5,000 units Hydralazine HCl (Apresoline) 10 mg SLOW IVP Q4H PRN PRN Reason: SBP Greater Than 180 Last Admin: 03/03/19 23:15 Dose: 10 mg Hydralazine HCl (Apresoline) 25 mg PO BID [facility] Last Admin: 03/12/19 08:56 Dose: Not Given Dextrose/Water (D5w) 1,000 mls @ 0 mls/hr IV .Q0M PRN PRN Reason: Hypoglycemia Insulin Glargine 15 units/ (Miscellaneous Medication) 0.15 mls @ 0 mls/hr SC QAM [facility] Last Admin: 03/12/19 09:42 Dose: 0.15 mls Insulin Human Lispro (Humalog) 0 units SC .MILD SLIDING SCALE PRN PRN Reason: Mild Correctional Scale Last Admin: 03/12/19 18:44 Dose: 2 unit Loperamide HCl (Imodium) 1 mg PO Q8H PRN PRN Reason: Diarrhea/Loose Stools Last Admin: 03/10/19 14:27 Dose: 1 mg Metoprolol Tartrate (Lopressor) 12.5 mg PO BID [facility] Last Admin: 03/12/19 08:55 Dose: 12.5 mg Multivitamins (Theragran) 1 tab PO DAILY [facility] Last Admin: 03/12/19 08:55 Dose: 1 tab Oxymetazoline HCl (Oxymetazoline Hcl) 0 sprays NASAL Q4H PRN PRN Reason: Epistaxis Pantoprazole Sodium (Protonix) 40 mg PO DAILY [facility] Last Admin: 03/12/19 08:55 Dose: 40 mg Saccharomyces Boulardii (Florastor) 250 mg PO DAILY [facility] Last Admin: 03/12/19 08:55 Dose: 250 mg Sodium Chloride (Flush - Normal Saline) 10 ml IVF Q12HR [facility] Last Admin: 03/12/19 08:56 Dose: 10 ml Sodium Chloride (Flush - Normal Saline) 10 ml IVF PRN PRN PRN Reason: Saline Flush Last Admin: 03/08/19 12:33 Dose: 10 ml Sodium Chloride ([place] Nasal [place] 0.65%) 0 ml EA NARE TID PASCUAL Last Admin: 03/12/19 13:43 Dose: Not Given Tramadol HCl (Ultram) 50 mg PO Q6H PRN PRN Reason: PAIN (2-4) Last Admin: 03/10/19 09:51 Dose: 50 mg Tramadol HCl (Ultram) 100 mg PO Q6H PRN PRN Reason: PAIN (5-10) Last Admin: 03/12/19 10:51 Dose: 100 mg
--- NOTE | 2019-03-12 23:55 | PDOC.GSPN ---
Surgery Progress Note: Subj - Subjective Narrative: Feels good. Had a normal bowel movement. Ambulating in the room with assistance. She is able to get up out of bed on her own, but still has trouble getting up from a chair, and needs help getting her legs back into the bed. Pain is controlled and she is tolerating her diet. Her abdomen is soft nondistended and minimally tender ry-incisionally. Her incisions all look good. She has a lot of edema in her lower abdomen and legs. Vital signs are okay she hasn't had any more fevers. Assessment and plan: Doing well status post extended left colectomy, and surgically ready for discharge to rehabilitation or intermediate with physical therapy. Surgery Progress Note: Obj - Vital signs Vital signs: Vital Signs - Most Recent Temp Pulse Resp BP Pulse Ox 98.3 F 72 16 147/66 H 95 03/12/19 21:19 03/12/19 21:19 03/12/19 21:19 03/12/19 21:19 03/12/19 21:19 Surgery Progress Note: Results - Labs Result Diagrams: 03/11/19 06:43 03/11/19 06:43 Lab results: Laboratory Results - last 24 hr 03/12/19 03/12/19 16:05 22:17 POC Glucose 197 H 171 H
[2019-03-13 06:01] LABS: Anion Gap 11 mmol/L (10-20); BUN (Urea Nitrogen) 51 mg/dL (9.8-20.1); Calc. Creatinine Clearance 44 mL/min (70-130); Calcium 8.1 mg/dL (7.8-10.44); Carbon Dioxide 24 mmol/L (23-31); Chloride 108 mmol/L (98-107); Estimated GFR-MDRD 24; Glucose 147 mg/dL (80-115); Sodium 139 mmol/L (136-145)
[2019-03-13] MEDS: HumaLOG 300 UNITS/3 ML VIAL SC PRN ×4 (06:09→20:22)
[2019-03-13] MEDS: Furosemide 40 MG/4 ML VIAL SLOW IVP SCH ×2 (06:09→14:29)
[2019-03-13] MEDS: Aspirin Chewable 81 MG TAB PO SCH (09:25)
[2019-03-13] MEDS: Metoprolol Tartrate 25 MG TAB PO SCH ×2 (09:25→20:22)
[2019-03-13] MEDS: Gabapentin 300 MG CAP PO SCH ×2 (09:25→20:22)
[2019-03-13] MEDS: Folic Acid 1 MG TAB PO SCH (09:26)
[2019-03-13] MEDS: hydrALAZINE 25 MG TAB PO SCH ×2 (09:26→20:22)
[2019-03-13] MEDS: Multivit, Therapeutic 1 TAB PO SCH (09:27)
[2019-03-13] MEDS: Saccharomyces boulardii 250 MG CAP PO SCH (09:27)
[2019-03-13] MEDS: Cyanocobalamin (Vitamin B-12) 1,000 MCG TAB PO SCH (09:27)
[2019-03-13] MEDS: Clopidogrel Bisulfate 75 MG TAB PO SCH (09:28)
[2019-03-13] MEDS: Heparin 5,000 UNITS/ML VIAL SC SCH ×2 (09:28→20:23)
[2019-03-13] MEDS: Sodium Chloride 0.65% Nasal 44 ML BOT EA NARE SCH ×3 (09:34→20:23)
[2019-03-13] MEDS: Insulin Glargine 15 UNITS in Pre-Filled Syringe 1 EACH SC SCH (10:49)
--- NOTE | 2019-03-13 11:15 | PDOC.GSPN ---
Surgery Progress Note: Subj - Subjective Narrative: Patient continues to improve daily. She is getting out of bed on her own and ambulating to the bathroom. She is tolerating her diet. She still has some gassy pain on the left side of her abdomen occasionally but this is not severe. Having normal bowel movements. Incisions look good. Still a fairly severe edema in the lower extremity and dependent parts of her abdomen. She has unfortunately been turned down for rehabilitation by her insurance company so we are looking at detention facility options. From a surgical standpoint she is ready for discharge any time and can follow up with oncology as an outpatient. Surgery Progress Note: Obj - Vital signs Vital signs: Vital Signs - Most Recent Temp Pulse Resp BP Pulse Ox 98.4 F 68 16 122/73 97 03/13/19 07:29 03/13/19 09:26 03/13/19 07:29 03/13/19 07:29 03/13/19 08:00 Surgery Progress Note: Results - Labs Result Diagrams: 03/11/19 06:43 03/13/19 05:15 Lab results: Laboratory Results - last 24 hr 03/13/19 03/13/19 05:15 05:51 Sodium 139 Potassium 4.0 Chloride 108 H Carbon Dioxide 24 Anion Gap 11 BUN 51 H Creatinine 2.04 H Estimated GFR (MDRD) 24 Glucose 147 H POC Glucose 152 H Calcium 8.1
--- NOTE | 2019-03-13 11:51 | PRG ---
DATE OF SERVICE: 03/13/2019 SUBJECTIVE: Patient was seen and examined at bedside and overnight events noted. Patient denies any shortness of breath or chest pain or palpitation. No history of nausea or vomiting or diarrhea or fever or chills or cramps. OBJECTIVE: GENERAL: This is a well built female, in no acute distress. VITAL SIGNS: Temperature 98.4. Heart rate 68. Respiratory rate 16. Blood pressure 122/73. HEENT: Atraumatic, normocephalic. Oral mucosa is moist NECK: Supple. CARDIOVASCULAR: S1, S2 heard. Rate and rhythm regular. RESPIRATORY: Clear to auscultation. GASTROINTESTINAL: Abdomen is soft. MUSCULOSKELETAL: No tenderness. DERMATOLOGIC: No skin rash. NEUROLOGIC: Alert and awake and oriented X3. No focal neurologic deficits. Moving all the extremities. PSYCHIATRIC: Mood and affect normal. LABORATORY DATA: Potassium 4.0, BUN is 51, and creatinine is 2.04. ASSESSMENT AND PLAN: 1. Acute kidney injury on chronic kidney, stage 4, stable. 2. Edema. Continue Lasix. 3. Cardiorenal syndrome. 4. Anemia. 5. Hypertension, stable. We will limit fluid intake and we will continue on Lasix. Job ID: [id number]
--- NOTE | 2019-03-13 18:17 | PDOC.PN ---
- Subjective Encounter Start Date: 03/13/19 Encounter Start Time: 15:20 Doing well. Still has some edema and discomfort in her feet. Biggest concern is that she cannot have a cheeseburger because her diet was changed to a renal diet today. - Objective Resuscitation Status - Order Detail: 02/28/19 03:00 Resuscitation Status Routine Resuscitation Status: FULL: Full Resuscitation Discussed with: patient Vital Signs & Weight: Vital Signs (12 hours) Temp Pulse Resp BP Pulse Ox 03/13/19 15:10 98.3 F 68 18 133/65 98 03/13/19 10:45 98.1 F 66 16 114/71 97 03/13/19 09:26 68 03/13/19 08:00 97 03/13/19 07:29 98.4 F 68 16 122/73 97 Weight Admit Weight 218 lb 2 oz Weight 240 lb 11.916 oz Most Recent Monitor Data Heart Rate from ECG 67 NIBP 152/75 NIBP BP-Mean 100 Respiration from ECG 16 SpO2 95 I&O: 03/12/19 03/13/19 03/14/19 06:59 06:59 06:59 Intake Total 240 720 Output Total 325 Balance 240 395 Result Diagrams: 03/11/19 06:43 03/13/19 05:15 Additional Labs: Accuchecks 03/13/19 03/13/19 03/13/19 15:39 10:53 05:51 POC Glucose 172 H 189 H 152 H 03/12/19 22:17 POC Glucose 171 H Phys Exam - Physical Examination Constitutional: NAD Respiratory: no wheezing, no rales, no rhonchi, clear to auscultation bilateral Cardiovascular: RRR, no significant murmur Gastrointestinal: soft, non-tender, no distention 1=-2+ pitting edema of the LE's Neurological: non-focal Psychiatric: normal affect, A&O x 3 Dx/Plan (1) Acute worsening of stage 4 chronic kidney disease Code(s): N18.4 - CHRONIC KIDNEY DISEASE, STAGE 4 (SEVERE) Status: Acute Comment: IV albumin today, follow electrolytes and creatinine (2) Colonic mass Code(s): K63.9 - DISEASE OF INTESTINE, UNSPECIFIED Status: Acute Comment: s/ p surgery (3) CAD (coronary artery disease) Code(s): I25.10 - ATHSCL HEART DISEASE OF [place] CORONARY ARTERY W/O ANG PCTRS Status: Chronic Comment: stable (4) Acute on chronic diastolic (congestive) heart failure Code(s): I50.33 - ACUTE ON CHRONIC DIASTOLIC (CONGESTIVE) HEART FAILURE Status : Acute Comment: Improved with Lasix, currently Lasix held secondary to renal function, continue to monitor clinically (5) Diabetes type 2, controlled Code(s): E11.9 - TYPE 2 DIABETES MELLITUS WITHOUT COMPLICATIONS Status: Chronic (6) Dyslipidemia Code(s): E78.5 - HYPERLIPIDEMIA, UNSPECIFIED Status: Chronic (7) Hypertension Code(s): I10 - ESSENTIAL (PRIMARY) HYPERTENSION Status: Chronic Qualifiers: Hypertension type: essential hypertension Qualified Code(s): I10 - Essential (primary) hypertension Comment: Continue Lisinopril and titrate to optimal response (8) Adenocarcinoma of colon Code(s): C18.9 - MALIGNANT NEOPLASM OF COLON, UNSPECIFIED Status: Acute - Plan * Doing quite well overall. * Still has some peripheral edema, but that will be challenging to resolve. Continue IV lasix while she is here. Will need to ambulate more. * Denied for IRF. Referral sent to SNF. * May be approved by tomorrow.
[2019-03-13] MEDS: traMADol HCl 50 MG TAB PO PRN (20:30)
[2019-03-14] MEDS: Furosemide 40 MG/4 ML VIAL SLOW IVP SCH (05:42)
[2019-03-14 08:16] LABS: #Eosinphils 0.2 thou/uL (0.0-0.7); #Lymphocytes 0.7 thou/uL (1.20-3.40); #Monocytes 0.5 thou/uL (0.11-0.59); #Neutrophils 5.3 thou/uL (1.40-6.50); %Basophils 0.2 % (0.0-1.0); %Eosinophils 3.5 % (0.0-10.0); %Lymphocytes 10.9 % (21.0-51.0); %Monocytes 7.4 % (0.0-10.0); %Neutrophils 78.1 % (42.0-75.0); Hemoglobin 8.6 g/dL (12.0-16.0); Mean Corpuscular HGB CONC 30.9 g/dL (32.0-36.0); Mean Corpuscular Hemoglobin 27.6 pg (27.0-31.0); Mean Corpuscular Volume 89.4 fL (78.0-98.0); Mean Platelet Volume 9.6 fL (7.4-10.4); Platelet Count 200 thou/uL (130-400); RBC Distribution Width 18.4 % (11.5-14.5); Red Blood Cell (RBC) Count 3.12 mill/uL (4.20-5.40); White Blood Cell (WBC) Count 6.8 thou/uL (4.8-10.8)
[2019-03-14 08:34] LABS: Albumin 2.5 g/dL (3.4-4.8); Anion Gap 13 mmol/L (10-20); BUN (Urea Nitrogen) 55 mg/dL (9.8-20.1); BUN/Creatinine Ratio 24.23; Calc. Creatinine Clearance 40 mL/min (70-130); Calcium 8.2 mg/dL (7.8-10.44); Carbon Dioxide 23 mmol/L (23-31); Chloride 107 mmol/L (98-107); Estimated GFR-MDRD 21; Glucose 157 mg/dL (80-115); Magnesium 1.6 mg/dL (1.6-2.6); Phosphorus 3.6 mg/dL (2.3-4.7); Potassium 4.2 mmol/L (3.5-5.1); Sodium 139 mmol/L (136-145)
[2019-03-14] MEDS: Multivit, Therapeutic 1 TAB PO SCH (08:39)
[2019-03-14] MEDS: Aspirin Chewable 81 MG TAB PO SCH (08:40)
[2019-03-14] MEDS: Gabapentin 300 MG CAP PO SCH ×2 (08:40→21:11)
[2019-03-14] MEDS: Clopidogrel Bisulfate 75 MG TAB PO SCH (08:40)
[2019-03-14] MEDS: Saccharomyces boulardii 250 MG CAP PO SCH (08:40)
[2019-03-14] MEDS: Cyanocobalamin (Vitamin B-12) 1,000 MCG TAB PO SCH (08:40)
[2019-03-14] MEDS: Metoprolol Tartrate 25 MG TAB PO SCH ×2 (08:40→21:11)
[2019-03-14] MEDS: Folic Acid 1 MG TAB PO SCH (08:41)
[2019-03-14] MEDS: Heparin 5,000 UNITS/ML VIAL SC SCH ×2 (08:42→21:12)
[2019-03-14] MEDS: hydrALAZINE 25 MG TAB PO SCH ×2 (08:53→21:09)
[2019-03-14] MEDS: Insulin Glargine 15 UNITS in Pre-Filled Syringe 1 EACH SC SCH (10:16)
[2019-03-14] MEDS: Sodium Chloride 0.65% Nasal 44 ML BOT EA NARE SCH ×3 (10:18→21:12)
[2019-03-14] MEDS: HumaLOG 300 UNITS/3 ML VIAL SC PRN ×2 (11:58→21:14)
[2019-03-14] MEDS: Furosemide 40 MG TAB PO SCH (13:50)
--- NOTE | 2019-03-14 17:12 | PRG ---
DATE OF SERVICE: 03/14/2019 SUBJECTIVE: Patient was seen and examined at bedside and overnight events noted. Patient denies any shortness of breath or chest pain or palpitation. No history of nausea or vomiting or diarrhea or fever or chills or cramps. OBJECTIVE: GENERAL: This is an obese female, in no apparent distress. VITAL SIGNS: Temperature 98.3, heart rate 64, respiratory rate 18, blood pressure 109/58. HEENT: Atraumatic, normocephalic. Oral mucosa is moist NECK: Supple. CARDIOVASCULAR: S1, S2 heard. Rate and rhythm regular. RESPIRATORY: Clear to auscultation. GASTROINTESTINAL: Abdomen is soft. MUSCULOSKELETAL: No tenderness. 1+ edema. DERMATOLOGIC: No skin rash. NEUROLOGIC: Alert and awake and oriented X3. No focal neurologic deficits. Moving all the extremities. PSYCHIATRIC: Mood and affect normal. LABORATORY DATA: Potassium is 4.2, BUN is 55, and creatinine is 2.2. ASSESSMENT AND PLAN: 1. Acute kidney injury, on chronic kidney stage 4. We will reduce. We will change Lasix to p.o. given the rise in creatinine. 2. Edema, limit fluid intake. 3. Cardiorenal syndrome. 4. Anemia, monitor hemoglobin. 5. Hypertension, stable. We will continue to monitor. Job ID: [id number]
--- NOTE | 2019-03-14 20:10 | PDOC.PN ---
- Subjective Encounter Start Date: 03/14/19 Encounter Start Time: 15:00 Doing well. Feet feel a little less swollen today. - Objective Resuscitation Status - Order Detail: 02/28/19 03:00 Resuscitation Status Routine Resuscitation Status: FULL: Full Resuscitation Discussed with: patient Vital Signs & Weight: Vital Signs (12 hours) Temp Pulse Resp BP BP BP Pulse Ox 03/14/19 15:37 98.3 F 64 18 109/58 L 95 03/14/19 11:05 97.4 F L 65 18 136/58 L 96 03/14/19 08:53 63 106/62 Weight Admit Weight 218 lb 2 oz Weight 240 lb 11.916 oz Most Recent Monitor Data Heart Rate from ECG 67 NIBP 152/75 NIBP BP-Mean 100 Respiration from ECG 16 SpO2 95 I&O: 03/13/19 03/14/19 03/15/19 06:59 06:59 06:59 Intake Total 720 1020 840 Output Total 325 400 Balance 395 620 840 Result Diagrams: 03/14/19 08:05 03/14/19 08:05 Additional Labs: Accuchecks 03/14/19 03/14/19 03/14/19 15:31 11:12 05:36 POC Glucose 144 H 196 H 137 H 03/13/19 20:22 POC Glucose 168 H Phys Exam - Physical Examination Constitutional: NAD Respiratory: no wheezing, no rales, no rhonchi Cardiovascular: RRR, no significant murmur, no rub Gastrointestinal: soft, non-tender, no distention, positive bowel sounds 2+ pitting edema of BLE's Neurological: non-focal Psychiatric: normal affect, A&O x 3 Dx/Plan (1) Acute worsening of stage 4 chronic kidney disease Code(s): N18.4 - CHRONIC KIDNEY DISEASE, STAGE 4 (SEVERE) Status: Acute Comment: Nephrology following. Changing to po Lasix. Continue to monitor creat. (2) Colonic mass Code(s): K63.9 - DISEASE OF INTESTINE, UNSPECIFIED Status: Acute Comment: s/ p surgery (3) CAD (coronary artery disease) Code(s): I25.10 - ATHSCL HEART DISEASE OF [place] CORONARY ARTERY W/O ANG PCTRS Status: Chronic Comment: stable (4) Acute on chronic diastolic (congestive) heart failure Code(s): I50.33 - ACUTE ON CHRONIC DIASTOLIC (CONGESTIVE) HEART FAILURE Status : Acute Comment: PO Lasix. (5) Diabetes type 2, controlled Code(s): E11.9 - TYPE 2 DIABETES MELLITUS WITHOUT COMPLICATIONS Status: Chronic (6) Dyslipidemia Code(s): E78.5 - HYPERLIPIDEMIA, UNSPECIFIED Status: Chronic (7) Hypertension Code(s): I10 - ESSENTIAL (PRIMARY) HYPERTENSION Status: Chronic Qualifiers: Hypertension type: essential hypertension Qualified Code(s): I10 - Essential (primary) hypertension Comment: Continue Lisinopril and titrate to optimal response (8) Adenocarcinoma of colon Code(s): C18.9 - MALIGNANT NEOPLASM OF COLON, UNSPECIFIED Status: Acute - Plan * Improving slowly following surgery. * Continue PT. * Awaiting placement for SNF. * Difficult to manage fluids in light of CKD IV and the chf. * Will need follow up with oncology after she is adequately healed from surgery.
--- NOTE | 2019-03-14 20:33 | PDOC.GSPN ---
Surgery Progress Note: Subj - Subjective Narrative: Patient is feeling well. She is ambulating on her own in the room and able to get out of bed. She is still quite tired and her energy level has not really returned to normal. She is tolerating her diet and her bowel movements are normal now. Her incisions look good and she is afebrile with normal vital signs. From a surgical standpoint she has been ready for discharge for several days, and she is simply awaiting placement in a detention at this point. I do not anticipate that she will have any surgical needs over the weekend, but Dr. Kam is available to see her on an as-needed basis. If she is still in the hospital on Sunday, I will see her then. Otherwise she can follow up in my clinic in 2 weeks' time. Surgery Progress Note: Obj - Vital signs Vital signs: Vital Signs - Most Recent Temp Pulse Resp BP Pulse Ox 97.8 F 72 16 124/73 99 03/14/19 20:20 03/14/19 20:20 03/14/19 20:20 03/14/19 20:20 03/14/19 20:20 Surgery Progress Note: Results - Labs Result Diagrams: 03/14/19 08:05 03/14/19 08:05 Lab results: Laboratory Results - last 24 hr 03/14/19 03/14/19 03/14/19 08:05 11:12 15:31 Sodium 139 Potassium 4.2 Chloride 107 Carbon Dioxide 23 Anion Gap 13 BUN 55 H Creatinine 2.27 H Estimated GFR (MDRD) 21 BUN/Creatinine Ratio 24.23 Glucose 157 H POC Glucose 196 H 144 H Calcium 8.2 Phosphorus 3.6 Magnesium 1.6 Albumin 2.5 L
[2019-03-15] MEDS: hydrALAZINE 25 MG TAB PO SCH ×2 (08:54→20:29)
[2019-03-15] MEDS: Furosemide 40 MG TAB PO SCH (08:54)
[2019-03-15] MEDS: Saccharomyces boulardii 250 MG CAP PO SCH (08:54)
[2019-03-15] MEDS: Aspirin Chewable 81 MG TAB PO SCH (08:54)
[2019-03-15] MEDS: Folic Acid 1 MG TAB PO SCH (08:55)
[2019-03-15] MEDS: Cyanocobalamin (Vitamin B-12) 1,000 MCG TAB PO SCH (08:55)
[2019-03-15] MEDS: Gabapentin 300 MG CAP PO SCH ×2 (08:55→20:29)
[2019-03-15] MEDS: Metoprolol Tartrate 25 MG TAB PO SCH ×2 (08:55→20:31)
[2019-03-15] MEDS: Clopidogrel Bisulfate 75 MG TAB PO SCH (08:55)
[2019-03-15] MEDS: Multivit, Therapeutic 1 TAB PO SCH (08:55)
[2019-03-15] MEDS: Heparin 5,000 UNITS/ML VIAL SC SCH ×2 (08:56→20:30)
[2019-03-15] MEDS: Insulin Glargine 15 UNITS in Pre-Filled Syringe 1 EACH SC SCH (09:03)
[2019-03-15 10:00] LABS: Anion Gap 12 mmol/L (10-20); BUN (Urea Nitrogen) 57 mg/dL (9.8-20.1); Calc. Creatinine Clearance 37 mL/min (70-130); Calcium 7.7 mg/dL (7.8-10.44); Carbon Dioxide 23 mmol/L (23-31); Chloride 106 mmol/L (98-107); Estimated GFR-MDRD 20; Glucose 153 mg/dL (80-115); Potassium 4.2 mmol/L (3.5-5.1); Sodium 137 mmol/L (136-145)
[2019-03-15] MEDS ORDERED: Ondansetron PF 4 MG/2 ML Vial IVP PRN (11:04)
--- NOTE | 2019-03-15 11:51 | PRG ---
DATE OF SERVICE: 03/15/2019 SUBJECTIVE: Patient was seen and examined at bedside and overnight events noted. Patient denies any shortness of breath or chest pain or palpitation. No history of nausea or vomiting or diarrhea or fever or chills or cramps. OBJECTIVE: GENERAL: This is a well-built female, in no apparent distress. VITAL SIGNS: Temperature 98.6. Pulse 67. Respiratory rate 16. Blood pressure 119/71. HEENT: Atraumatic, normocephalic. Oral mucosa is moist NECK: Supple. CARDIOVASCULAR: S1, S2 heard. Rate and rhythm regular. RESPIRATORY: Clear to auscultation. GASTROINTESTINAL: Abdomen is soft. MUSCULOSKELETAL: No tenderness. No edema. DERMATOLOGIC: No skin rash. NEUROLOGIC: Alert and awake and oriented X3. No focal neurologic deficits. Moving all the extremities. PSYCHIATRIC: Mood and affect normal. LABORATORY DATA: Potassium 4.2, BUN is 57, and creatinine is 2.4. ASSESSMENT AND PLAN: 1. Acute kidney injury on chronic kidney, stage 4, with worsening creatinine. Plan is to change Lasix to 40 mg p.o. daily. 2. Edema, on Lasix. 3. Limit fluid intake. 4. Cardiorenal syndrome. 5. Anemia. 6. Hypertension, stable. We will reduce Lasix dose and monitor. Job ID: [id number]
[2019-03-15] MEDS: HumaLOG 300 UNITS/3 ML VIAL SC PRN ×2 (12:30→17:19)
[2019-03-15] MEDS: Ondansetron ODT 4 MG TAB PO PRN (12:32)
[2019-03-15] MEDS: Sodium Chloride 0.65% Nasal 44 ML BOT EA NARE SCH ×3 (12:33→20:32)
[2019-03-15] MEDS: traMADol HCl 50 MG TAB PO PRN ×2 (14:45→22:29)
--- NOTE | 2019-03-15 15:30 | PDOC.PN ---
- Subjective Encounter Start Date: 03/15/19 Encounter Start Time: 12:30 Doing ok. Had a little nausea this morning, but believes it was related to having to eat her cereal without milk. Eating her lunch now and does not appear to be having any issues. - Objective Resuscitation Status - Order Detail: 02/28/19 03:00 Resuscitation Status Routine Resuscitation Status: FULL: Full Resuscitation Discussed with: patient Vital Signs & Weight: Vital Signs (12 hours) Temp Pulse Resp BP BP Pulse Ox 03/15/19 11:16 98.3 F 72 18 110/58 L 95 03/15/19 08:21 98.6 F 67 16 103/54 L 94 L 03/15/19 08:00 94 L 03/15/19 04:05 98.6 F 68 16 119/71 97 Weight Admit Weight 218 lb 2 oz Weight 240 lb 11.916 oz Most Recent Monitor Data Heart Rate from ECG 67 NIBP 152/75 NIBP BP-Mean 100 Respiration from ECG 16 SpO2 95 I&O: 03/14/19 03/15/19 03/16/19 06:59 06:59 06:59 Intake Total 1020 960 Output Total 400 Balance 620 960 Result Diagrams: 03/14/19 08:05 03/15/19 09:31 Additional Labs: Accuchecks 03/15/19 03/15/19 03/14/19 12:09 05:35 20:42 POC Glucose 207 H 108 158 H 03/14/19 15:31 POC Glucose 144 H Phys Exam - Physical Examination Constitutional: NAD Respiratory: no wheezing, no rales, no rhonchi Cardiovascular: RRR, no significant murmur Gastrointestinal: soft, non-tender, no distention 2+ pitting edema BLE's Psychiatric: normal affect, A&O x 3 Dx/Plan (1) Acute worsening of stage 4 chronic kidney disease Code(s): N18.4 - CHRONIC KIDNEY DISEASE, STAGE 4 (SEVERE) Status: Acute Comment: Nephrology following. Changing to po Lasix. Continue to monitor creat. (2) Colonic mass Code(s): K63.9 - DISEASE OF INTESTINE, UNSPECIFIED Status: Acute Comment: s/ p surgery (3) CAD (coronary artery disease) Code(s): I25.10 - ATHSCL HEART DISEASE OF [place] CORONARY ARTERY W/O ANG PCTRS Status: Chronic Comment: stable (4) Acute on chronic diastolic (congestive) heart failure Code(s): I50.33 - ACUTE ON CHRONIC DIASTOLIC (CONGESTIVE) HEART FAILURE Status : Acute Comment: PO Lasix. Persistent edema. Challenging with advanced CKD. (5) Diabetes type 2, controlled Code(s): E11.9 - TYPE 2 DIABETES MELLITUS WITHOUT COMPLICATIONS Status: Chronic Comment: Well controlled (6) Dyslipidemia Code(s): E78.5 - HYPERLIPIDEMIA, UNSPECIFIED Status: Chronic (7) Hypertension Code(s): I10 - ESSENTIAL (PRIMARY) HYPERTENSION Status: Chronic Qualifiers: Hypertension type: essential hypertension Qualified Code(s): I10 - Essential (primary) hypertension Comment: Continue Lisinopril and titrate to optimal response (8) Adenocarcinoma of colon Code(s): C18.9 - MALIGNANT NEOPLASM OF COLON, UNSPECIFIED Status: Acute Comment: Will need follow up when she has adequately healed from surgery. - Plan * Continue PT. * Continue to monitor renal function as long as she is here. * Awaiting insurance approval for Fabien.
[2019-03-16 08:49] LABS: Anion Gap 14 mmol/L (10-20); BUN (Urea Nitrogen) 62 mg/dL (9.8-20.1); Calc. Creatinine Clearance 33 mL/min (70-130); Calcium 8.1 mg/dL (7.8-10.44); Carbon Dioxide 24 mmol/L (23-31); Chloride 107 mmol/L (98-107); Estimated GFR-MDRD 17; Glucose 104 mg/dL (80-115); Potassium 4.6 mmol/L (3.5-5.1); Sodium 140 mmol/L (136-145)
[2019-03-16] MEDS: Heparin 5,000 UNITS/ML VIAL SC SCH ×2 (08:54→20:50)
[2019-03-16] MEDS: Insulin Glargine 15 UNITS in Pre-Filled Syringe 1 EACH SC SCH (08:54)
[2019-03-16] MEDS: Multivit, Therapeutic 1 TAB PO SCH (08:55)
[2019-03-16] MEDS: Saccharomyces boulardii 250 MG CAP PO SCH (08:55)
[2019-03-16] MEDS: Metoprolol Tartrate 25 MG TAB PO SCH ×2 (08:56→20:47)
[2019-03-16] MEDS: Clopidogrel Bisulfate 75 MG TAB PO SCH (08:56)
[2019-03-16] MEDS: hydrALAZINE 25 MG TAB PO SCH ×3 (08:56→20:47)
[2019-03-16] MEDS: Aspirin Chewable 81 MG TAB PO SCH (08:56)
[2019-03-16] MEDS: Gabapentin 300 MG CAP PO SCH ×2 (08:56→20:50)
[2019-03-16] MEDS: Furosemide 40 MG TAB PO SCH (08:56)
[2019-03-16] MEDS: Folic Acid 1 MG TAB PO SCH (08:56)
[2019-03-16] MEDS: Cyanocobalamin (Vitamin B-12) 1,000 MCG TAB PO SCH (08:57)
[2019-03-16] MEDS: Sodium Chloride 0.65% Nasal 44 ML BOT EA NARE SCH ×3 (08:57→20:50)
[2019-03-16] MEDS: traMADol HCl 50 MG TAB PO PRN (10:02)
--- NOTE | 2019-03-16 11:53 | PRG ---
DATE OF SERVICE: 03/16/2019 SUBJECTIVE: Patient was seen and examined at bedside and overnight events noted. Patient denies any shortness of breath or chest pain or palpitation. No history of nausea or vomiting or diarrhea or fever or chills or cramps. OBJECTIVE: GENERAL: This is an obese female, in no apparent distress. VITAL SIGNS: Temperature 98.3. Heart rate 69. Respiratory rate 18. Blood pressure . HEENT: Atraumatic, normocephalic. Oral mucosa is moist NECK: Supple. CARDIOVASCULAR: S1, S2 heard. Rate and rhythm regular. RESPIRATORY: Clear to auscultation. GASTROINTESTINAL: Abdomen is soft. MUSCULOSKELETAL: No tenderness. No edema. DERMATOLOGIC: No skin rash. NEUROLOGIC: Alert and awake and oriented X3. No focal neurologic deficits. Moving all the extremities. PSYCHIATRIC: Mood and affect normal. LABORATORY DATA: Potassium 4.6, BUN is 62, creatinine is 2.7. ASSESSMENT AND PLAN: 1. Acute kidney injury. Creatinine getting worse. will hold AM dose of lasix. 2. Edema, continue on fluid restriction. 3. Limit fluid intake. 4. Cardiorenal syndrome. 5. Anemia. 6. Hypertension - stable. Monitor renal function. Avoid nephrotoxins. Job ID: [id number] MTDD
--- NOTE | 2019-03-16 14:48 | PDOC.PN ---
- Subjective Encounter Start Date: 03/16/19 Encounter Start Time: 13:45 Doing ok. No new problems. Has a good attitude about getting better and beating her cancer. Daughter with her today. - Objective Resuscitation Status - Order Detail: 02/28/19 03:00 Resuscitation Status Routine Resuscitation Status: FULL: Full Resuscitation Discussed with: patient Vital Signs & Weight: Vital Signs (12 hours) Temp Pulse Resp BP BP Pulse Ox 03/16/19 11:19 98.3 F 63 18 111/71 96 03/16/19 08:56 69 03/16/19 08:00 94 L 03/16/19 07:25 98.3 F 69 18 108/51 L 94 L 03/16/19 04:02 98.6 F 66 16 95/59 L 93 L Weight Admit Weight 218 lb 2 oz Weight 240 lb 11.916 oz Most Recent Monitor Data Heart Rate from ECG 67 NIBP 152/75 NIBP BP-Mean 100 Respiration from ECG 16 SpO2 95 I&O: 03/15/19 03/16/19 03/17/19 06:59 06:59 06:59 Intake Total 960 600 Balance 960 600 Result Diagrams: 03/14/19 08:05 03/16/19 07:45 Additional Labs: Accuchecks 03/16/19 03/16/19 03/15/19 11:23 05:38 20:22 POC Glucose 122 H 112 H 97 03/15/19 16:03 POC Glucose 198 H Phys Exam - Physical Examination Constitutional: NAD Respiratory: no wheezing, no rales, no rhonchi Cardiovascular: RRR, no significant murmur, no rub Gastrointestinal: soft, non-tender, no distention, positive bowel sounds 2+ pitting edema. Neurological: non-focal Psychiatric: normal affect, A&O x 3 Dx/Plan (1) Acute worsening of stage 4 chronic kidney disease Code(s): N18.4 - CHRONIC KIDNEY DISEASE, STAGE 4 (SEVERE) Status: Acute Comment: Nephrology following. Changing to po Lasix. Continue to monitor creat. (2) Colonic mass Code(s): K63.9 - DISEASE OF INTESTINE, UNSPECIFIED Status: Acute Comment: s/ p surgery (3) CAD (coronary artery disease) Code(s): I25.10 - ATHSCL HEART DISEASE OF [place] CORONARY ARTERY W/O ANG PCTRS Status: Chronic Comment: stable (4) Acute on chronic diastolic (congestive) heart failure Code(s): I50.33 - ACUTE ON CHRONIC DIASTOLIC (CONGESTIVE) HEART FAILURE Status : Acute Comment: PO Lasix. Persistent edema. Challenging with advanced CKD. (5) Diabetes type 2, controlled Code(s): E11.9 - TYPE 2 DIABETES MELLITUS WITHOUT COMPLICATIONS Status: Chronic Comment: Well controlled (6) Dyslipidemia Code(s): E78.5 - HYPERLIPIDEMIA, UNSPECIFIED Status: Chronic (7) Hypertension Code(s): I10 - ESSENTIAL (PRIMARY) HYPERTENSION Status: Chronic Qualifiers: Hypertension type: essential hypertension Qualified Code(s): I10 - Essential (primary) hypertension Comment: Continue Lisinopril and titrate to optimal response (8) Adenocarcinoma of colon Code(s): C18.9 - MALIGNANT NEOPLASM OF COLON, UNSPECIFIED Status: Acute Comment: Will need follow up when she has adequately healed from surgery. - Plan * Awaiting placement. * Had near obstructing colon mass removed. Adenoca. * Post op has had issues with edema, renal function and CHF. * Renal function has been waxing and waning. Trending worse now. * Followed by Nephrology. * Changed from IV to po lasix. * Continue to monitor while she is here, but ok to DC with outpatient follow up. * Likely to discharge tomorrow.
[2019-03-17] MEDS: Ondansetron ODT 4 MG TAB PO PRN (01:54)
[2019-03-17 06:32] LABS: Anion Gap 15 mmol/L (10-20); BUN (Urea Nitrogen) 64 mg/dL (9.8-20.1); Calc. Creatinine Clearance 31 mL/min (70-130); Calcium 7.9 mg/dL (7.8-10.44); Carbon Dioxide 21 mmol/L (23-31); Chloride 107 mmol/L (98-107); Estimated GFR-MDRD 16; Glucose 91 mg/dL (80-115); Potassium 4.7 mmol/L (3.5-5.1); Sodium 138 mmol/L (136-145)
[2019-03-17] MEDS: Aspirin Chewable 81 MG TAB PO SCH (09:39)
[2019-03-17] MEDS: hydrALAZINE 25 MG TAB PO SCH ×2 (09:40→20:45)
[2019-03-17] MEDS: Cyanocobalamin (Vitamin B-12) 1,000 MCG TAB PO SCH (09:40)
[2019-03-17] MEDS: Gabapentin 300 MG CAP PO SCH ×2 (09:40→20:45)
[2019-03-17] MEDS: Furosemide 40 MG TAB PO SCH (09:40)
[2019-03-17] MEDS: Folic Acid 1 MG TAB PO SCH (09:40)
[2019-03-17] MEDS: Clopidogrel Bisulfate 75 MG TAB PO SCH (09:40)
[2019-03-17] MEDS: Metoprolol Tartrate 25 MG TAB PO SCH ×2 (09:41→20:46)
[2019-03-17] MEDS: Saccharomyces boulardii 250 MG CAP PO SCH (09:41)
[2019-03-17] MEDS: Multivit, Therapeutic 1 TAB PO SCH (09:41)
[2019-03-17] MEDS: Heparin 5,000 UNITS/ML VIAL SC SCH ×2 (09:44→20:45)
[2019-03-17] MEDS: Insulin Glargine 15 UNITS in Pre-Filled Syringe 1 EACH SC SCH (09:44)
[2019-03-17] MEDS: Sodium Chloride 0.65% Nasal 44 ML BOT EA NARE SCH ×3 (09:46→20:46)
--- NOTE | 2019-03-17 10:22 | PDOC.PN ---
- Subjective Encounter Start Date: 03/17/19 Encounter Start Time: 10:20 Patient seen and examined, apparently started having lose watery diarrhea type stool from last night, no other issues. - Objective Resuscitation Status - Order Detail: 02/28/19 03:00 Resuscitation Status Routine Resuscitation Status: FULL: Full Resuscitation Discussed with: patient Vital Signs & Weight: Vital Signs (12 hours) Temp Pulse Resp BP BP Pulse Ox 03/17/19 09:40 66 03/17/19 07:56 98.3 F 65 16 103/69 96 03/17/19 03:34 98.4 F 66 18 116/75 97 03/17/19 00:28 98.4 F 74 18 129/74 95 Weight Admit Weight 218 lb 2 oz Weight 240 lb 11.916 oz Most Recent Monitor Data Heart Rate from ECG 67 NIBP 152/75 NIBP BP-Mean 100 Respiration from ECG 16 SpO2 95 I&O: 03/16/19 03/17/19 03/18/19 06:59 06:59 06:59 Intake Total 600 960 Balance 600 960 Result Diagrams: 03/14/19 08:05 03/17/19 06:01 Additional Labs: Accuchecks 03/17/19 03/16/19 03/16/19 05:50 20:47 15:08 POC Glucose 103 157 H 136 H 03/16/19 11:23 POC Glucose 122 H Phys Exam - Physical Examination Constitutional: NAD HEENT: PERRLA, moist MMs Neck: no nodes, no JVD Respiratory: no wheezing, no rales, no rhonchi Cardiovascular: RRR, no significant murmur, no rub Gastrointestinal: soft, non-tender, no distention Musculoskeletal: no edema, pulses present Dx/Plan (1) Diarrhea Code(s): R19.7 - DIARRHEA, UNSPECIFIED Status: Acute (2) Acute worsening of stage 4 chronic kidney disease Code(s): N18.4 - CHRONIC KIDNEY DISEASE, STAGE 4 (SEVERE) Status: Acute Comment: Nephrology following. Changing to po Lasix. Continue to monitor creat. (3) Adenocarcinoma of colon Code(s): C18.9 - MALIGNANT NEOPLASM OF COLON, UNSPECIFIED Status: Acute Comment: Will need follow up when she has adequately healed from surgery. (4) CAD (coronary artery disease) Code(s): I25.10 - ATHSCL HEART DISEASE OF [place] CORONARY ARTERY W/O ANG PCTRS Status: Chronic Comment: stable (5) Gout Code(s): M10.9 - GOUT, UNSPECIFIED Status: Chronic Comment: stable (6) Acute on chronic diastolic (congestive) heart failure Code(s): I50.33 - ACUTE ON CHRONIC DIASTOLIC (CONGESTIVE) HEART FAILURE Status : Acute Comment: PO Lasix. Persistent edema. Challenging with advanced CKD. (7) Diabetes type 2, controlled Code(s): E11.9 - TYPE 2 DIABETES MELLITUS WITHOUT COMPLICATIONS Status: Chronic Comment: Well controlled (8) Dyslipidemia Code(s): E78.5 - HYPERLIPIDEMIA, UNSPECIFIED Status: Chronic (9) Hypertension Code(s): I10 - ESSENTIAL (PRIMARY) HYPERTENSION Status: Chronic Qualifiers: Hypertension type: essential hypertension Qualified Code(s): I10 - Essential (primary) hypertension Comment: Continue Lisinopril and titrate to optimal response - Plan * will monitor for now, if diarrhea persists in AM will check C-diff, it appears likely related to food ingestion * no other changes in plan of care for now * pending placmeent at [facility] * likely DC to [facility] once diarrhea is improved * case and plan d/w patient at length, she understood and agreed with this plan.
--- NOTE | 2019-03-17 12:24 | PRG ---
DATE OF SERVICE: 03/17/2019 SUBJECTIVE: A 68-year-old female, being seen for acute kidney injury. The patient denies any nausea, vomiting, or chest pain. OBJECTIVE: See above. Awake, alert, in no acute distress. GENERAL APPEARANCE AND MENTAL STATUS: Fair. VITAL SIGNS: Afebrile, pulse 66, breathing 16, and blood pressure 103/69. HEAD/NECK: Normocephalic. Atraumatic. EYES: EOMI. No deformity. EARS: Clear. No ulcers. NOSE: Intact. No lesions. MOUTH: Clear. No discharge. THROAT: Clear. No exudate. LUNGS: Clear. No crackles. CARDIAC: S1, S2. No rub. ABDOMEN: Benign. Bowel sounds positive. GENITALIA/RECTUM: Rajan absent. BACK/EXTREMITIES: Lower extremities, 4+ edema. NEUROLOGICAL: Alert and motor intact. SKIN: LYMPHATICS: LABORATORY DATA: Showed creatinine 2.8. ASSESSMENT AND PLAN: 1. Acute kidney injury with chronic kidney disease due to congestive heart failure. Continue diuretics. 2. Hypertension, stable. 3. Anemia, stable. 4. Edema. Continue on Lasix. Job ID: [id number]
--- NOTE | 2019-03-17 16:35 | PDOC.GSPN ---
Surgery Progress Note: Subj - Subjective Narrative: Doing alright but had a fair amount of diarrhea last night. She thinks this may be because of eating too many sugary foods. It seems to be slowing down. No fevers or chills or abdominal pain. She was checked for C. difficile earlier and was negative. Her abdominal exam is benign and her incisions are well- healed. No new surgical issues. Her creatinine continues to slowly creep upward , but nephrology is following her and managing her diuretics. Still awaiting approval for mcc placement. Surgery Progress Note: Obj - Vital signs Vital signs: Vital Signs - Most Recent Temp Pulse Resp BP Pulse Ox 97.5 F L 64 18 117/73 96 03/17/19 15:58 03/17/19 15:58 03/17/19 15:58 03/17/19 15:58 03/17/19 15:58 Surgery Progress Note: Results - Labs Result Diagrams: 03/14/19 08:05 03/17/19 06:01 Lab results: Laboratory Results - last 24 hr 03/17/19 03/17/19 03/17/19 05:50 06:01 11:01 Sodium 138 Potassium 4.7 Chloride 107 Carbon Dioxide 21 L Anion Gap 15 BUN 64 H Creatinine 2.89 H Estimated GFR (MDRD) 16 Glucose 91 POC Glucose 103 119 H Calcium 7.9 03/17/19 15:59 Sodium Potassium Chloride Carbon Dioxide Anion Gap BUN Creatinine Estimated GFR (MDRD) Glucose POC Glucose 103 Calcium
[2019-03-17] MEDS: Loperamide HCl 2 MG CAP PO PRN (17:02)
[2019-03-17] MEDS ORDERED: Loperamide HCl 2 MG CAP PO PRN (21:17)
[2019-03-18] MEDS ORDERED: Benzocaine 20% Spray 60 ML CAN PO PRN (01:24)
[2019-03-18] MEDS: Insulin Glargine 15 UNITS in Pre-Filled Syringe 1 EACH SC SCH (09:26)
[2019-03-18] MEDS: Heparin 5,000 UNITS/ML VIAL SC SCH (09:27)
[2019-03-18] MEDS: Saccharomyces boulardii 250 MG CAP PO SCH (09:27)
[2019-03-18] MEDS: Multivit, Therapeutic 1 TAB PO SCH (09:28)
[2019-03-18] MEDS: Cyanocobalamin (Vitamin B-12) 1,000 MCG TAB PO SCH (09:28)
[2019-03-18] MEDS: Gabapentin 300 MG CAP PO SCH (09:28)
[2019-03-18] MEDS: hydrALAZINE 25 MG TAB PO SCH (09:28)
[2019-03-18] MEDS: Clopidogrel Bisulfate 75 MG TAB PO SCH (09:28)
[2019-03-18] MEDS: Aspirin Chewable 81 MG TAB PO SCH (09:28)
[2019-03-18] MEDS: Metoprolol Tartrate 25 MG TAB PO SCH (09:28)
[2019-03-18] MEDS: Folic Acid 1 MG TAB PO SCH (09:28)
[2019-03-18] MEDS: Sodium Chloride 0.65% Nasal 44 ML BOT EA NARE SCH (09:29)
--- NOTE | 2019-03-18 10:36 | PDOC.EVN ---
Event Note - Event Note Event Note: DC SUMMARY #[id number]
--- NOTE | 2019-03-18 11:13 | PRG ---
DATE OF SERVICE: 03/18/2019 SUBJECTIVE: A 68-year-old female being seen for acute kidney injury. The patient denied any nausea, vomiting, or chest pain. OBJECTIVE: CONSTITUTIONAL: The patient is awake and alert. VITAL SIGNS: Pulse 69, breathing 16, blood pressure 121/75. GENERAL APPEARANCE AND MENTAL STATUS: Fair. HEAD/NECK: Normocephalic. Atraumatic. EYES: EOMI. No deformity. EARS: Clear. No ulcers. NOSE: Intact. No lesions. MOUTH: Clear. No discharge. THROAT: Clear. No exudate. LUNGS: Clear. No crackles. CARDIAC: S1, S2. No rub. ABDOMEN: Benign. Bowel sounds positive. GENITALIA/RECTUM: Rajan absent. BACK/EXTREMITIES: Edema 0+. NEUROLOGICAL: Alert and motor intact. SKIN: LYMPHATICS: LABORATORY DATA: Reviewed. ASSESSMENT: 1. Chronic kidney disease stage 4, stable. 2. Hypertension, stable. 3. Anemia, stable. The patient will follow up to see Dr. Spring. Job ID: [id number]
--- NOTE | 2019-03-18 11:18 | DIS ---
DATE OF ADMISSION: 02/28/2019 DATE OF DISCHARGE: 03/18/2019 ADMITTING DIAGNOSES: 1. Diarrhea. 2. Hypertension. 3. Hypothyroidism. 4. Coronary artery disease. 5. Hyperlipidemia. 6. Gout. 7. Congestive heart failure. DISCHARGE DIAGNOSES: 1. Colonic mass. 2. Adenocarcinoma. 3. Diabetes, stable. 4. Chronic kidney disease, stable. 5. Hypertension, stable. 6. Hyperlipidemia, stable. 7. Gout, stable. HOSPITAL COURSE: This is a 68-year-old female presented to [facility] ER with diarrhea, was admitted to Internal Medicine Team. The patient had consultations done by the ICU team as well as Gastroenterology. Initially admitted to the ICU because of hemodynamic instability. The patient had a CT scan done of the chest, abdomen, pelvis, and was found to have a colonic mass. The patient was taken to the OR by the GI team and had EGD and colonoscopy done. The patient also had an evaluation done by General Surgery as well as Cardiology given her prior history of heart disease, risk of GI bleed and need for dual antiplatelets. The patient had biopsies done. Pathology was pending. The patient was requested to follow up with General Surgery within 2 weeks post discharge for further management and care. At point in time of discharge, the patient was stable, did not have any nausea, vomiting, diarrhea, constipation, chest pain, fevers, chills, or shortness of breath. The patient's hemoglobin was stable at 8.6, the day prior was 8.6 as well. SHAMEKA had stabilized. Creatinine was at 2.89. Highest creatinine being 3.3. The patient upon the time of discharge was to follow up with Fabien Pina per the patient's request. Case and plan discussed with the patient and her family at length. They understood and agreed with this plan. DISPOSITION: [facility]. FOLLOWUP: Follow up with PCP within 1 week, General Surgery within 1 week, Nephrology within 1 week as well as GI within 1 week. MEDICATIONS: See MAR. ACTIVITY: As tolerated with assistance as needed. DIET: Low-fat low-calorie high-fiber diet. CONDITION: Stable. PROGNOSIS: Overall guarded to poor. Once again, case and plan discussed with the patient and family at length. They understood and agreed with this plan. Job ID: [id number]
[2019-03-18 11:40] LABS: Anion Gap 16 mmol/L (10-20); BUN (Urea Nitrogen) 71 mg/dL (9.8-20.1); Calc. Creatinine Clearance 27 mL/min (70-130); Calcium 8.1 mg/dL (7.8-10.44); Carbon Dioxide 20 mmol/L (23-31); Chloride 107 mmol/L (98-107); Estimated GFR-MDRD 13; Glucose 109 mg/dL (80-115); Sodium 138 mmol/L (136-145)
[2019-03-18 12:32] VITALS: BP 106/69; TEMP 98.4
[2019-03-18] MEDS: Ondansetron ODT 4 MG TAB PO PRN (13:39)
--- NOTE | 2019-03-19 14:45 | PDOC.OP ---
Operative Note - Operative Note Operative Note: PROCEDURE: Extended left hemicolectomy, laparoscopic hand-assisted SURGEON: Kaz Garcia M.D. DATE: PREOPERATIVE DIAGNOSIS: Near obstructing descending colon mass POSTOPERATIVE DIAGNOSIS: Near struck during splenic flexure mass HISTORY: Patient with multiple medical problems including severe heart failure who presented with weight loss and diarrhea and anemia. Colonoscopy revealed near obstructing mass in the left colon which was tattooed. Recommendation was made to proceed with excision. The proximal colon could not be surveyed as the scope could not be passed beyond the mass. PROCEDURE IN DETAIL: After appropriate preoperative antibiotics were administered and appropriate bowel preparation carried out the patient was taken to the operating room where she was placed in supine position and general endotracheal anesthesia was administered. She was prepped and draped in standard sterile fashion and a 6 cm circa- umbilical incision was made. Dissection was carried down to the fascia which was incised in the midline and the peritoneal cavity was entered. Omental adhesions to the midline were taken down to allow placement of a GelPort. A wound protector and GelPort were placed and carbon dioxide gas insufflated into the abdominal cavity to an intra- abdominal pressure of 5 which the patient tolerated well. The abdominal cavity was examined and dissecting trochars placed in the right lower quadrant, left lower quadrant, and upper midline under direct vision of the laparoscope. Additional omental adhesions were taken down through the avascular plane and the left colon examined. The patient was found to have tattooing of the colon at the level of the splenic flexure as well as a palpable mass in this area. The white line of Toldt was incised and the colon mobilized medially. There is a fair amount of fibrosis near the area of the sigmoid colon implying previous inflammation in this area. The ureter and a metal vessels were clearly identified and peristalsis confirmed in the ureter. The mesentery was carefully mobilized off of these structures medially to the midline. The splenic flexure was then mobilized . The omentum was divided leaving it adherent to the distal transverse colon and the attachments in the left upper quadrant were divided allowing complete mobilization of the splenic flexure. The middle colic vessel was identified and traced down to its origin. The transverse colon was divided proximal to the middle colic artery with a laparoscopic stapler and the middle colic artery divided at its origin with the LigaSure device. The mesentery was then sequentially divided down to the origin of the HUI which was likewise divided with the LigaSure device. The mesentery was then divided down to the level of the upper rectum and the perirectal tissues cleared using LigaSure. A stapler was placed across the upper rectum and the bowel was divided. The specimen was passed from the field and oriented for pathology. There were no palpable lymph nodes in the mesentery which was rather short. The hepatic flexure was then completely mobilized to allow at the proximal transverse colon to reach down to the rectal stump. Once this was adequately mobilized the end of the bowel was externalized through the wound protector and draped off with laparotomy sponges and towels towels and the suture line was resected. A pressure suture was placed and sizers placed into the colon which accepted up to a 31 mm sizer. This also easily passed transanally to the end of the rectal pouch. A 31 mm anvil was secured within the end of the colon and the pursestring suture tied down. The bowel was returned to the abdominal cavity and a EEA stapler advanced to the end of the rectal pouch. The spike was advanced through the end of the rectal pouch and secured to the anvil and a stapled anastomosis created. 2 full-thickness donuts were obtained. Proctoscope was then placed into the rectum and saline instilled into the abdominal cavity. The colon was digitally occluded above the anastomosis and air insufflated into the rectum distending the anastomosis. No air leak was seen at the anastomosis. Air was evacuated from the rectum and the anastomosis was confirmed to be tension-free. The abdominal cavity was then irrigated to clear and the operative sites examined and hemostasis verified. The small bowel was run and no abnormalities found. There were no palpable masses in the right colon. There were no palpable masses in the liver. The small bowel was returned to its normal anatomic position and the remaining omentum drawn over this. The left lower quadrant trocar was removed and the fascia closed using a 0 Vicryl suture on a GraNee needle under direct laparoscopic vision. The other 5 mm dissecting trochars were withdrawn under direct vision and hemostasis verified. Seprafilm was placed beneath the midline incision and the fascia closed with a running PDS suture. The subcutaneous tissues were copiously irrigated and the skin incisions were closed using 4-0 subcuticular Monocryl sutures. Dermabond dressings were placed and the patient was taken to the CCU in stable condition. Estimated blood loss was 100 mL's. There were no complications. Specimen is extended left hemicolectomy.
== END 2019-03-18 13:45 | DRG 329 ==
LOC: ERS 23:32 → T4-B 02-28 02:09 → IMCU/EMU 02-28 05:29 → T4-B 03-02 17:54 → CCU 03-03 16:40 → IMCU/EMU 03-06 10:36 → SURG A 03-08 13:57
PROVIDERS: ADMIT Internal Medicine; ATTEND Internal Medicine
PROC: 0DTG4ZZ Resection of Left Large Intestine, Percutaneous Endoscopic Approach (ICD-10-PCS; 2019-02-28)
PROC: 07BC4ZX Excision of Pelvis Lymphatic, Percutaneous Endoscopic Approach, Diagnostic (ICD-10-PCS; 2019-02-28)
PROC: 0DB98ZX Excision of Duodenum, Via Natural or Artificial Opening Endoscopic, Diagnostic (ICD-10-PCS; principal; 2019-03-01)
PROC: 0DB78ZZ Excision of Stomach, Pylorus, Via Natural or Artificial Opening Endoscopic (ICD-10-PCS; 2019-03-01)
PROC: 0DBM8ZX Excision of Descending Colon, Via Natural or Artificial Opening Endoscopic, Diagnostic (ICD-10-PCS; 2019-03-01)
DX: C18.9 Malignant neoplasm of colon, unspecified (principal); N17.0 Acute kidney failure with tubular necrosis; I50.43 Acute on chronic combined systolic (congestive) and diastolic (congestive) heart failure; J96.01 Acute respiratory failure with hypoxia; K57.31 Diverticulosis of large intestine without perforation or abscess with bleeding; N18.4 Chronic kidney disease, stage 4 (severe); I13.0 Hypertensive heart and chronic kidney disease with heart failure and stage 1 through stage 4 chronic kidney disease, or unspecified chronic kidney disease; D62 Acute posthemorrhagic anemia; C77.9 Secondary and unspecified malignant neoplasm of lymph node, unspecified; E11.22 Type 2 diabetes mellitus with diabetic chronic kidney disease; D63.1 Anemia in chronic kidney disease; E11.40 Type 2 diabetes mellitus with diabetic neuropathy, unspecified; E11.649 Type 2 diabetes mellitus with hypoglycemia without coma; I25.10 Atherosclerotic heart disease of native coronary artery without angina pectoris; H54.8 Legal blindness, as defined in USA; F32.9 Major depressive disorder, single episode, unspecified; E66.9 Obesity, unspecified; E87.6 Hypokalemia; E78.5 Hyperlipidemia, unspecified; K63.5 Polyp of colon; K31.7 Polyp of stomach and duodenum; M10.9 Gout, unspecified; K21.9 Gastro-esophageal reflux disease without esophagitis; Z68.37 Body mass index [BMI] 37.0-37.9, adult; Z79.4 Long term (current) use of insulin; I25.2 Old myocardial infarction; Z95.5 Presence of coronary angioplasty implant and graft; Z98.42 Cataract extraction status, left eye; Z98.41 Cataract extraction status, right eye; Z98.890 Other specified postprocedural states; Z88.2 Allergy status to sulfonamides; Z88.8 Allergy status to other drugs, medicaments and biological substances
CPT/HCPCS: 36415; 36416; 36430; 71250; 74177; 80048; 80053; 80069; 81001; 82378; 82533; 82805; 83605; 83735; 84100; 84443; 84484; 85014; 85018; 85025; 86850; 86900; 86901; 87040; 87045; 87046; 87086; 87324; 87328; 87329; 87449; 87899; 88304; 88305; 88309; 88312; 93798; 93970; 94002; 94003; 94760; 96365; 96375; C9113; J0131; J0360; J0670; J0694; J1200; J1610; J1644; J1815; J1940; J2001; J2250; J2270; J2370; J2543; J2704; J2765; J3010; J3370; J3475; J3490; J7050; P9016; P9047; Q0162

== ENCOUNTER → 2019-04-04 | Day surgery (SDC) | payer MEDICARE ==
[2019-04-03 11:09] VITALS: BMI 39.6
[~2019-04-04] MED LIST changes: +Bupivacaine/Epinephrine 0.25% 30 ML VIAL ONE; -ISOVUE-370 76%-LOCM 1 ML ONE; -Iopamidol 370 76% 50 ML VIAL FS ONE; +Lidocaine 2% PF 5 ML VIAL ONE; +Sodium Chloride 0.9% 100 ML ONE; +cefTRIAXone\\ROCEPHIN 1 GM VIAL ONE
--- NOTE | 2019-04-04 09:14 | ULT ---
BILATERAL UPPER EXTREMITY VEIN MAPPING: CLINICAL HISTORY: Dialysis access, end-stage renal disease. FINDINGS: RIGHT UPPER EXTREMITY BRACHIAL ARTERY: 4.0 mm RADIAL ARTERY: 1.5 mm ULNAR ARTERY: 1.9 mm CEPHALIC VEIN Proximal Humerus: 1.7 mm Mid Humerus: 1.4 mm Distal Humerus: 1.5 mm Antecubital Fossa: 4.2 mm Proximal Forearm: 1.8 mm Mid Forearm: 1.0 mm Distal Forearm: 1.4 mm BASILIC VEIN Proximal Humerus: 3.7 mm Mid Humerus: 3.5 mm Distal Humerus: 3.8 mm Antecubital Fossa: 2.5 mm Proximal Forearm: 2.2 mm Mid Forearm: 1.2 mm Distal Forearm: 1.3 mm LEFT UPPER EXTREMITY BRACHIAL ARTERY: 3.9 mm RADIAL ARTERY: 1.8 mm ULNAR ARTERY: 2.0 mm CEPHALIC VEIN Proximal Humerus: Not visualized Mid Humerus: Not visualized Distal Humerus: 1.7 mm Antecubital Fossa: 4.7 mm Proximal Forearm: 1.2 mm Mid Forearm: 2.0 mm Distal Forearm: Not visualized BASILIC VEIN Proximal Humerus: 3.4 mm Mid Humerus: 1.8 mm Distal Humerus: 2.5 mm Antecubital Fossa: 1.9 mm Proximal Forearm: 1.9 mm Mid Forearm: 1.6 mm Distal Forearm: 2.0 mm IMPRESSION: Bilateral upper extremity vein mapping, as above. Transcribed Date/Time: 04/04/2019 9:18 AM
[2019-04-04 09:18] LABS: Hemoglobin 9.1 g/dL (12.0-16.0); Mean Corpuscular HGB CONC 29.5 g/dL (32.0-36.0); Mean Corpuscular Hemoglobin 27.7 pg (27.0-31.0); Mean Corpuscular Volume 93.8 fL (78.0-98.0); Mean Platelet Volume 9.1 fL (7.4-10.4); Platelet Count 181 thou/uL (130-400)
[2019-04-04 09:19] LABS: #Eosinphils 0.3 thou/uL (0.0-0.7); #Lymphocytes 0.7 thou/uL (1.20-3.40); #Monocytes 0.4 thou/uL (0.11-0.59); #Neutrophils 3.7 thou/uL (1.40-6.50); %Basophils 0.2 % (0.0-1.0); %Eosinophils 5.4 % (0.0-10.0); %Lymphocytes 13.5 % (21.0-51.0); %Monocytes 7.3 % (0.0-10.0); %Neutrophils 73.5 % (42.0-75.0)
[2019-04-04 09:30] LABS: Anion Gap 15 mmol/L (10-20); BUN (Urea Nitrogen) 62 mg/dL (9.8-20.1); Calc. Creatinine Clearance 29 mL/min (70-130); Calcium 8.4 mg/dL (7.8-10.44); Carbon Dioxide 20 mmol/L (23-31); Chloride 111 mmol/L (98-107); Estimated GFR-MDRD 15; Glucose 171 mg/dL (80-115); Potassium 4.6 mmol/L (3.5-5.1); Sodium 141 mmol/L (136-145)
[2019-04-04 09:35] LABS: Bacteria/HPF 3+ HPF (None Seen); Bilirubin Negative (Negative); Blood, Urine 1+ (Negative); Clarity Turbid (Clear); Glucose, Urine (Dipstick) Normal (Negative); Leukocyte 500 Leu/uL (Negative); Nitrite Negative (Negative); Protein, Urine (Dipstick) 20 mg/dL (Neg-Trace); Squamous Epithelial 0-3 HPF (0-3); Transitional Epithelial 0-3 HPF (None Seen); Urobilinogen Normal mg/dL (Less than 2); WBC/HPF Greater than 50 HPF (0-3)
[2019-04-04 10:24] LABS: Hypochromia SLIGHT = 6-15 cells (100X) (0-5/hpf); MDiff Complete? YES; Platelet Morphology Comment Appears Adequate; Polychromasia SLIGHT = 2-3 cells (100X) (0-2/hpf)
--- NOTE | 2019-04-04 17:18 | EKG ---
Test Reason : PREOP Blood Pressure : / mmHG Vent. Rate : 065 BPM Atrial Rate : 065 BPM P-R Int : 124 ms QRS Dur : 136 ms QT Int : 454 ms P-R-T Axes : 023 -42 -34 degrees QTc Int : 472 ms Normal sinus rhythm Left axis deviation Right bundle branch block Inferior infarct (cited on or before 18-MAY-2016) Nonspecific ST-T changes Abnormal ECG When compared with ECG of 11-MAY-2018 05:08, No significant change was found Confirmed by DR. Ramiro SERRANO ([id number]) on 04/04/2019 5:17:36 PM Referred By: XAVIER Confirmed By:DR. Ramiro SERRANO
--- NOTE | 2019-04-05 09:40 | PDOC.GSPN ---
Surgery Progress Note: Subj - Subjective Narrative: Patient with chronic renal insufficiency who requires a Mediport. Her seal delivery vehicle officer had recommended AV fistula placement as well but does not think that she needs a tunneled hemodialysis catheter, and the plan was to proceed with left AV fistula and left internal jugular Mediport placement. Her creatinine is in the threes has been pretty stable since discharge. Unfortunately, she was recently diagnosed with UTI and despite 3 days of antibiotics she is still having dysuria. A catheter UA and micro showed evidence of persistent UTI so her case was canceled. I'm going to be out of town for the next [address] Carr is going to place her Mediport in my absence so she can start her chemotherapy as scheduled next week. The patient was instructed not to allow anyone to place IVs or draw labs from her left arm as this will be the side of her eventual access. I discussed antibiotic treatment for her UTI with Dr. Spring and he recommended ceftriaxone for the next 2 days and then Vantin by mouth since she is being discharged from rehabilitation. Cultures were sent today and I have ordered a repeat catheterized UA and micro before her rescheduled surgery next week. Patient was disappointed but understanding. Surgery Progress Note: Results - Labs Result Diagrams: 04/04/19 09:05 04/04/19 09:05
== END ==
LOC: SDC 07:46
PROVIDERS: ATTEND Surgery
DX: C18.9 Malignant neoplasm of colon, unspecified (principal); C77.9 Secondary and unspecified malignant neoplasm of lymph node, unspecified; N39.0 Urinary tract infection, site not specified; B96.20 Unspecified Escherichia coli [E. coli] as the cause of diseases classified elsewhere; E11.22 Type 2 diabetes mellitus with diabetic chronic kidney disease; N18.9 Chronic kidney disease, unspecified; I50.30 Unspecified diastolic (congestive) heart failure; I25.10 Atherosclerotic heart disease of native coronary artery without angina pectoris; E66.9 Obesity, unspecified; Z68.39 Body mass index [BMI] 39.0-39.9, adult; Z53.09 Procedure and treatment not carried out because of other contraindication; Z79.4 Long term (current) use of insulin; Z79.82 Long term (current) use of aspirin; Z79.899 Other long term (current) drug therapy; Z88.2 Allergy status to sulfonamides; Z88.8 Allergy status to other drugs, medicaments and biological substances; Z95.5 Presence of coronary angioplasty implant and graft; Z90.49 Acquired absence of other specified parts of digestive tract
CPT/HCPCS: 80048; 81001; 85025; 87077; 87086; 87186; 93005; G0365; 36415; 93010; 93970; J0131; J0690; J0696; J1642; J2001; J3490

== ENCOUNTER 2019-08-28 11:22 | Outpatient (CLI) | payer MEDICARE ==
--- NOTE | 2019-08-28 14:16 | PET ---
PET CT: HISTORY: A 69-year-old female with colon cancer. Exam requested to evaluate for subsequent . COMPARISON: None. TECHNIQUE: PET scanning with CT attenuation correction was performed from the base of the brain through the prox imal thighs following the intravenous administration of 11.5 millicuries of F18 fluorodeoxyglucose in the right antecubital fossa. FINDINGS: No madi hypermetabolism is seen in the neck, chest, axillae, abdomen, pelvis, or inguinal regions. N o hypermetabolic pulmonary nodules or liver, adrenal or skeletal lesions are seen. There is physiologic activity in the GI and tracts and in the visualized potions of the brain. CT scan used for attenuation correction demonstrates a small right pleural effusion, massive ascites and cholelithiasis. IMPRESSION: 1. No evidence of hypermetabolic lesions. 2. Small right pleural effusion and massive ascites. POS: ODILIA
== END 2019-08-28 11:23 | disposition home or self-care (01) ==
LOC: PET 11:22
PROVIDERS: ATTEND Internal Medicine Hematology & Oncology
DX: C18.9 Malignant neoplasm of colon, unspecified (principal); J90 Pleural effusion, not elsewhere classified; R18.8 Other ascites
CPT/HCPCS: 78815; A9552

== ENCOUNTER 2019-11-06 09:10 | Outpatient (CLI) | payer MEDICARE ==
[2019-11-06 17:27] LABS: Hemoglobin 12.4 g/dL (12.0-16.0); Mean Corpuscular HGB CONC 30.5 g/dL (32.0-36.0); Mean Corpuscular Hemoglobin 30.6 pg (27.0-31.0); Mean Platelet Volume 8.7 fL (7.4-10.4); Platelet Count 191 thou/uL (130-400); RBC Distribution Width 14.5 % (11.5-14.5); Red Blood Cell (RBC) Count 4.05 mill/uL (4.20-5.40); White Blood Cell (WBC) Count 3.8 thou/uL (4.8-10.8)
[2019-11-06 17:32] LABS: PTT 30.9 SEC (22.9-36.1)
[2019-11-06 17:43] LABS: INR-International Normal Ratio 1.1; Prothrombin Time 14.3 SEC (12.0-14.7)
[2019-11-06 17:55] LABS: Anion Gap 15 mmol/L (10-20); BUN (Urea Nitrogen) 42 mg/dL (9.8-20.1); Calc. Creatinine Clearance 0 mL/min (70-130); Calcium 8.4 mg/dL (7.8-10.44); Carbon Dioxide 27 mmol/L (23-31); Chloride 101 mmol/L (98-107); Estimated GFR-MDRD 8; Glucose 169 mg/dL (83-110); Potassium 3.7 mmol/L (3.5-5.1); Sodium 139 mmol/L (136-145)
== END 2019-11-06 09:11 | disposition home or self-care (01) ==
LOC: LABBT 09:10
PROVIDERS: ATTEND Internal Medicine Cardiovascular Disease
DX: Z01.818 Encounter for other preprocedural examination (principal); I50.9 Heart failure, unspecified
CPT/HCPCS: 80048; 85027; 85610; 85730; 93005; 93010

== ENCOUNTER 2019-11-17 07:51 | Observation (INO) | payer MEDICARE ==
[2019-11-17] MEDS ORDERED: Fentanyl 100 MCG/2 ML VIAL ONE (09:17)
[2019-11-17] MEDS ORDERED: Midazolam HCl 2 mg/2 ml Vial ONE (09:17)
[2019-11-17] MEDS ORDERED: Propofol 500 MG/50 ML VIAL ONE (09:20)
[2019-11-17] MEDS ORDERED: PROPOFOL 200 MG/20 ML VIAL ONE (09:29)
[2019-11-17] MEDS ORDERED: Heparin 10,000 UNITS/ 10 ML VIAL ONE (11:53)
--- NOTE | 2019-11-17 12:16 | RAD ---
EXAM: Portable chest PROVIDED CLINICAL HISTORY: Post ICD placement COMPARISON: 01/22/2018 FINDINGS: Cardiac silhouette remains enlarged. Atherosclerosis is redemonstrated. Interval placement of right s ubclavian cardiac pacing device with lead tips overlying expected locations of RA, RV and coronary sinus. Left IJ dialysis catheter is noted, tip of which projects in expected location of SVC.. No foc al consolidation, pleural fluid or pneumothorax evident. IMPRESSION: No evidence for an acute cardiopulmonary process.
[2019-11-17 13:09] LABS: #Eosinphils 0.4 thou/uL (0.0-0.7); #Lymphocytes 0.7 thou/uL (1.20-3.40); #Monocytes 0.3 thou/uL (0.11-0.59); #Neutrophils 2.4 thou/uL (1.40-6.50); %Basophils 0.2 % (0.0-1.0); %Eosinophils 9.9 % (0.0-10.0); %Lymphocytes 17.2 % (21.0-51.0); %Monocytes 8.6 % (0.0-10.0); %Neutrophils 64.2 % (42.0-75.0); Hemoglobin 11.4 g/dL (12.0-16.0); Mean Corpuscular HGB CONC 32.3 g/dL (32.0-36.0); Mean Corpuscular Hemoglobin 32.7 pg (27.0-31.0); Mean Platelet Volume 8.6 fL (7.4-10.4); Platelet Count 163 thou/uL (130-400); RBC Distribution Width 14.6 % (11.5-14.5); Red Blood Cell (RBC) Count 3.49 mill/uL (4.20-5.40); White Blood Cell (WBC) Count 3.8 thou/uL (4.8-10.8)
[2019-11-17 13:24] LABS: Anion Gap 15 mmol/L (10-20); BUN (Urea Nitrogen) 56 mg/dL (9.8-20.1); Calc. Creatinine Clearance 10 mL/min (70-130); Calcium 8.4 mg/dL (7.8-10.44); Carbon Dioxide 28 mmol/L (23-31); Chloride 104 mmol/L (98-107); Estimated GFR-MDRD 7; Glucose 143 mg/dL (83-110); Potassium 4.5 mmol/L (3.5-5.1); Sodium 142 mmol/L (136-145)
[2019-11-17] MEDS ORDERED: Promethazine 25 MG TAB PO PRN (13:51)
[2019-11-17] MEDS ORDERED: Iopamidol 370 76% 50 ML VIAL FS ONE (14:29)
[2019-11-17 16:28] VITALS: BMI 29.9
[2019-11-17] MEDS ORDERED: Morphine 2 MG/ML SYRINGE SLOW IVP PRN (17:10)
[2019-11-17] MEDS ORDERED: Promethazine HCl 25 MG/ML VIAL IM/IV PRN (17:10)
[2019-11-17] MEDS ORDERED: Ondansetron PF 4 MG/2 ML Vial IVP PRN (17:11)
[2019-11-17] MEDS ORDERED: HYDROcodone/Acetaminophen 5/325 mg Tablet PO PRN ×2 (17:11)
[2019-11-17] MEDS ORDERED: Labetalol HCl 100 MG/20 ML VIAL SLOW IVP PRN (17:12)
[2019-11-17] MEDS ORDERED: Dextrose 5% in Water 1,000 ML IV PRN (17:43)
[2019-11-17] MEDS ORDERED: HumaLOG 300 UNITS/3 ML VIAL SC PRN ×2 (17:43)
[2019-11-17] MEDS ORDERED: Dextrose 50% Abboject 50 ML SYRINGE SLOW IVP PRN (17:43)
[2019-11-17] MEDS: CEFAZOLIN 1 GM in Sodium Chloride 0.9% 100 ML IVPB SCH (18:17)
--- NOTE | 2019-11-17 19:17 | CON ---
DATE OF CONSULTATION: PRIMARY CARE PHYSICIAN: Dr. Mejia at [facility] in [place]. PRIMARY TEAM ELECTROPHYSIOLOGY: Dr. Samuels. REASON FOR CONSULTATION: Medical management. HISTORY OF PRESENT ILLNESS: This is a 69-year-old white female with an extensive past medical history including diabetes mellitus insulin dependent, hypertension, end-stage renal disease on dialysis, congestive heart failure with combined systolic and diastolic and ejection fraction most recently at 30%, who presented for scheduled placement of a biventricular pacer with defibrillator by Dr. Samuels, this was performed earlier today. Per the nurse practitioner report, the pacer was put in without difficulty; however, when they induced ventricular fibrillation, the defibrillator fired, but it was not able to converted back out, they had to do an external defibrillation to get it back into rhythm. As a result, Dr. Samuels is having the Nephrology to dialyze the patient to 90s and reassess in the morning to see if they need to revise the defibrillator lead. The patient reports persistent pain in her right upper chest, shoulder and arm at the side of the surgery, ever since she also when I was in the middle of intervening her, became suddenly nauseated and then vomited up all of her lunch. This resolved the nausea completely after she finished vomiting up. The patient reports she does have chronic nausea that she wakes up with nausea regularly and that she gets sudden nausea regularly as well, but does not easily vomit. She has no other active complaints. REVIEW OF SYSTEMS: CONSTITUTIONAL: No fevers. No chills. EYES: The patient is legally blind. Can just see some shapes and figures of the people around her, but cannot discern facial features or writing. No changes. ENT: No congestion, drainage, or sore throat. CARDIOVASCULAR: Chest pain in the anterior chest wall of the right upper chest, where they did a pacemaker placement, but no other chest pains. No palpitations or racing heart. PULMONARY: She does have a chronic cough, nonproductive. No significant worsening recently. No shortness of breath currently. GASTROINTESTINAL: No abdominal pain, nausea, or vomiting as per HPI. No diarrhea or constipation. She has had abdominal cramping pains whenever she has to have a bowel movement, ever since her surgery to remove her colon cancer. GENITOURINARY: The patient has no hematuria. She has had several weeks of burning externally with urination that only happens when she is constipated and about to have a bowel movement. Otherwise, there is no pain. This is burning, feels similar to the neuropathic burning of her lower extremities from her diabetes. EXTREMITIES: She has chronic burning and numbness in her bilateral lower extremities and bilateral hands as well. SKIN: No new rashes. Recently, she has had some redness of bilateral lower extremities from edema that was a little worse on the right about a week ago, but now is about that similar to the left side. NEUROLOGIC: Chronic numbness and tingling as above. No new neurologic symptoms. PAST MEDICAL HISTORY: 1. End-stage renal disease, on hemodialysis. 2. Diabetes mellitus type 2, insulin dependent, most recently on 10 units of long-acting insulin daily, but she has not been taking it for about the last week because her blood sugars have been running lower. She says she has not gone over 200 at that time. 3. Hypertension. 4. Gastroesophageal reflux disease. 5. Combined systolic and diastolic congestive heart failure with ejection fraction of 30% to 35% most recently. 6. Ischemic cardiomyopathy. 7. Coronary artery disease, status post MIs. 8. History of pulmonary edema. 9. Gout. 10. Diabetic neuropathy. 11. Diabetic retinopathy, now legally blind. 12. Colon cancer with metastases to lymph nodes, status post surgery and radiation chemotherapy, currently in remission. PAST PSYCHIATRIC HISTORY: Depression. PAST SURGICAL HISTORY: 1. Stents x4. 2. Bilateral cataract replacement. 3. Retinal repair. 4. x2. 5. Tonsillectomy. 6. Hemicolectomy in March 2019 for colon cancer. SOCIAL HISTORY: No tobacco, alcohol, or illicit drug use. She lives at home with her daughter and son-in-law. She is a full code. Should she be incapacitated, her daughter would be her medical decision maker, her name is Katerine Phoenix. FAMILY HISTORY: No family history of premature coronary artery disease or other significant medical issues. ALLERGIES: SULFA, ALLOPURINOL, AND LATEX. CURRENT MEDICATIONS: 1. Tresiba 10 units subcu daily. 2. Aspirin 81 mg daily. 3. Clopidogrel 75 mg daily. 4. Vitamin B12 of 2500 mcg daily. 5. Duloxetine 60 mg daily. 6. Gabapentin 300 mg twice a day. 7. Iron 28 mg daily. 8. Lactobacillus acidophilus one capsule daily. 9. Metoprolol succinate 25 mg twice a day. 10. Multivitamin daily. 11. Protonix 40 mg daily. 12. Promethazine 25 mg daily as needed. 13. Pyridoxine 50 mg daily. 14. Simvastatin 40 mg at night. IMAGING: Chest x-ray, I did review the chest x-ray done in the hospital shows a pacer defibrillator in place in the right anterior chest and a port in place in the left anterior chest. No infiltrates. No other acute changes. ASSESSMENT: 1. Severe congestive heart failure, status post defibrillator and pacer placement. Dr. Samuels following and will manage. 2. Chronic nausea with acute episode of nausea and vomiting. We will give p.r.n. Phenergan and we will observe this is likely just related to the recent surgery and the pain that she has been in. 3. Coronary artery disease. We will continue aspirin, Plavix, and statin. 4. Hypertension. Resume home antihypertensives. 5. Gastroesophageal reflux disease. Continue the patient's Protonix. 6. Diabetes mellitus, type 2. We will hold the patient's insulin due to her history of lower blood sugars recently. We will get fingerstick blood sugars q.a.c. and at bedtime and we will give a light insulin sliding scale. 7. Deep venous thrombosis prophylaxis. We will put the patient on sequential compression devices while in bed. CODE STATUS: The patient is a full code. Should she be incapacitated, her daughter would be her medical decision maker, daughter's name is Katerine Phoenix. Job ID: [id number]
[2019-11-17 23:54] LABS: Bilirubin Negative (Negative); Blood, Urine Moderate (Negative); Glucose, Urine (Dipstick) Negative (Negative); Leukocyte Large (Negative); Nitrite Negative (Negative); Protein, Urine (Dipstick) > or equal to 300 mg/dL (Neg-Trace); Urobilinogen 0.2 mg/dL (Less than 2)
[2019-11-18 00:03] LABS: RBC/HPF 21-50 HPF (0-3); Squamous Epithelial None Seen HPF (0-3); Transitional Epithelial 0-3 HPF (None Seen); WBC/HPF Greater than 50 HPF (0-3)
[2019-11-18 00:04] LABS: Clarity Turbid (Clear)
[2019-11-18 00:05] LABS: Bacteria/HPF Rare-Few HPF (None Seen)
[2019-11-18] MEDS: CEFAZOLIN 1 GM in Sodium Chloride 0.9% 100 ML IVPB SCH (00:10)
[2019-11-18] MEDS: Gabapentin 300 MG CAP PO SCH ×3 (00:11→20:10)
[2019-11-18] MEDS: Atorvastatin Calcium 20 MG TAB PO SCH ×2 (00:12→20:10)
[2019-11-18] MEDS: Ondansetron ODT 4 MG TAB PO PRN ×2 (06:34→15:30)
--- NOTE | 2019-11-18 08:53 | CON ---
DATE OF CONSULTATION: 11/17/2019 CONSULTING PHYSICIAN: Dr. Samuels. REASON FOR CONSULTATION: End-stage renal disease evaluation. REASON FOR ADMISSION: Elective admission for cardiac procedure. HISTORY OF PRESENT ILLNESS: This is a 69-year-old female with history of end-stage renal disease, on hemodialysis; type 2 diabetes, hypertension, GERD, congestive heart failure, came to the hospital for elective cardiac procedure. She is getting admitted to the hospital. Nephrology was consulted for dialysis. She gets dialysis Sunday, Sunday, Sunday, due for dialysis today. She denies any nausea or vomiting. No shortness of breath or chest pain. She does have leg swelling. PAST MEDICAL HISTORY: Positive for end-stage renal disease, on hemodialysis; type 2 diabetes, hypertension, GERD, congestive heart failure, anemia, neuropathy, coronary artery disease. PAST SURGICAL HISTORY: Dialysis access placement, retina surgery, , tonsillectomy, and cardiac stents. HOME MEDICATIONS: Reviewed. ALLERGIES: SULFA, ALLOPURINOL, AND LATEX. SOCIAL HISTORY: No smoking, alcohol, or illicit drug use. FAMILY HISTORY: No history of kidney disease. REVIEW OF SYSTEMS: The following complete review of systems was negative, unless otherwise mentioned in the HPI or below: Constitutional: Weight loss or gain, ability to conduct usual activities. Skin: Rash, itching. Eyes: Double vision, pain. ENT/Mouth: Nose bleeding, neck stiffness, pain, tenderness. Cardiovascular: Palpitations, dyspnea on exertion, orthopnea. Respiratory: Shortness of breath, wheezing, cough, hemoptysis, fever or night sweats. Gastrointestinal: Poor appetite, abdominal pain, heartburn, nausea, vomiting, constipation, or diarrhea. Genitourinary: Urgency, frequency, dysuria, nocturia. Musculoskeletal: Pain, swelling. Neurologic/Psychiatric: Anxiety, depression. Allergy/Immunologic: Skin rash, bleeding tendency. PHYSICAL EXAMINATION: GENERAL: This is a well-built female, in no apparent distress. VITAL SIGNS: Temperature 96.7 degrees, pulse 78, respiratory rate 18, blood pressure 147/78. HEENT: Atraumatic, normocephalic. Oral mucosa moist. NECK: Supple. CV: S1 and S2. Regular rate and rhythm. RESPIRATORY: Clear. MUSCULOSKELETAL: 1 to 2+ edema. DERMATOLOGIC: No skin rash. NEUROLOGIC: Alert and awake. PSYCHIATRIC: Mood and affect normal. LABORATORY DATA: Hemoglobin is 11.4. Potassium 4.5, BUN is 56, creatinine is 6.2. ASSESSMENT AND PLAN: 1. End-stage renal disease, on hemodialysis. Plan to continue dialysis today. We will continue dialysis Sunday, Sunday, Sunday. 2. Edema, controlled. 3. Anemia. 4. History of hypertension. Continue dialysis Sunday, Sunday, Sunday. Thank you for the consult. We will follow the case along with you. Job ID: [id number]
[2019-11-18] MEDS ORDERED: Cephalexin 250 MG CAP PO SCH (09:00)
[2019-11-18] MEDS ORDERED: TRESIBA (INSULIN DEGLUDEC) SC SCH (09:00)
[2019-11-18] MEDS: Aspirin Chewable 81 MG TAB PO SCH ×2 (11:23→16:09)
[2019-11-18] MEDS: DULoxetine 60 MG CAP PO SCH (11:24)
[2019-11-18] MEDS: Cephalexin 250 MG CAP PO SCH ×3 (11:24→20:10)
[2019-11-18] MEDS: Clopidogrel Bisulfate 75 MG TAB PO SCH ×2 (11:24→16:09)
[2019-11-18] MEDS: Cyanocobalamin (Vitamin B-12) 1,000 MCG TAB PO SCH (11:24)
[2019-11-18] MEDS: Lactinex Tablet PO SCH (11:25)
[2019-11-18] MEDS: Ferrous Sulfate 325 MG TAB PO SCH (11:25)
[2019-11-18] MEDS: Multivitamin W/ Minerals 1 TAB PO SCH (11:26)
[2019-11-18] MEDS: pyridOXINE 50 MG (B6) TAB PO SCH (11:27)
--- NOTE | 2019-11-18 15:35 | PRG ---
DATE OF SERVICE: 11/18/2019 SUBJECTIVE: Patient was seen and examined at bedside and overnight events noted. Patient denies any shortness of breath or chest pain or palpitation. No history of nausea or vomiting or diarrhea or fever or chills or cramps. OBJECTIVE: GENERAL: This is well-built female, in no apparent distress. VITAL SIGNS: Temperature 91. Heart Rate 74. Respiratory rate 14. Blood pressure 137/62. HEENT: Atraumatic, normocephalic. Oral mucosa is moist. NECK: Supple. CARDIOVASCULAR: S1, S2 heard. Rate and rhythm regular. RESPIRATORY: Clear to auscultation. GASTROINTESTINAL: Abdomen is soft. MUSCULOSKELETAL: No tenderness. No edema. DERMATOLOGIC: No skin rash. NEUROLOGIC: Alert and awake and oriented x3. No focal neurologic deficits. Moving all the extremities. PSYCHIATRIC: Mood and affect normal. LABORATORY DATA: Not done today. ASSESSMENT AND PLAN: 1. End-stage renal disease. Continue dialysis on Sunday, Sunday, and Sunday. 2. Edema, controlled. 3. Anemia. 4. History of hypertension. Plan to continue dialysis on Sunday, Sunday, and Sunday as tolerated. Job ID: [id number]
--- NOTE | 2019-11-18 16:26 | PDOC.EP ---
- Subjective Date: 11/18/19 Time: 16:24 Interval History: follow up for device management. Feels well. voices no complaints. eager to have procedure done. - Review of Systems Constitutional: denies: chills, fever, malaise, sweats, weakness, other Respiratory: denies: cough, dry, hemoptysis, pleuritic pain, shortness of breath , SOB with excertion, sputum, wheezing, other Cardiology: denies: edema, heart racing, light headedness, palpitations, passing out Gastrointestinal: denies: abdominal pain, constipation, diarrhea - Objective Allergies/Adverse Reactions: Allergies Allergy/AdvReac Type Severity Reaction Status Date / Time allopurinol Allergy Severe BLISTERS Verified 11/06/19 16:14 ON HANDS Sulfa (Sulfonamide Allergy Intermediate ITCHING Verified 11/06/19 16:14 Antibiotics) latex Allergy Verified 11/06/19 17:02 Current Medications Hydrocodone Bitart/Acetaminophen ([place] 5/325) 1 tab PO Q4H PRN PRN Reason: Mild Pain (1-3) Last Admin: 11/18/19 16:12 Dose: 1 tab Hydrocodone Bitart/Acetaminophen ([place] 5/325) 2 tab PO Q4H PRN PRN Reason: Moderate Pain (4-6) Last Admin: 11/17/19 18:18 Dose: 2 tab Acidophilus (Floranex) 1 tab PO DAILY [facility] Last Admin: 11/18/19 11:25 Dose: Not Given Aspirin (Aspirin Chewable) 81 mg PO DAILY [facility] Last Admin: 11/18/19 16:09 Dose: 81 mg Atorvastatin Calcium (Lipitor) 20 mg PO HS [facility] Last Admin: 11/18/19 00:12 Dose: 20 mg Cephalexin (Keflex) 250 mg PO TID [facility] Stop: 11/27/19 21:01 Last Admin: 11/18/19 15:19 Dose: 250 mg Clopidogrel Bisulfate (Plavix) 75 mg PO DAILY [facility] Last Admin: 11/18/19 16:09 Dose: 75 mg Cyanocobalamin (Vitamin B-12) 2,500 mcg PO DAILY [facility] Last Admin: 11/18/19 11:24 Dose: Not Given Dextrose/Water (Dextrose 50%) 25 gm SLOW IVP PRN PRN PRN Reason: Hypoglycemia Duloxetine HCl (Cymbalta) 60 mg PO DAILY [facility] Last Admin: 11/18/19 11:24 Dose: Not Given Ferrous Sulfate (Feosol) 325 mg PO DAILY [facility] Last Admin: 11/18/19 11:25 Dose: Not Given Gabapentin (Neurontin) 300 mg PO BID [facility] Last Admin: 11/18/19 11:25 Dose: Not Given Glucagon (Glucagon) 1 mg IM PRN PRN PRN Reason: Hypoglycemia Dextrose/Water (D5w) 1,000 mls @ 0 mls/hr IV .Q0M PRN PRN Reason: Hypoglycemia Insulin Human Lispro (Humalog) 0 units SC .MILD SLIDING SCALE PRN PRN Reason: Mild Correctional Scale Insulin Human Lispro (Humalog) 0 units SC .BEDTIME SLIDING SC PRN PRN Reason: Bedtime Correctional Scale Iron/Minerals/Multivitamins (Theragran M) 1 tab PO DAILY [facility] Last Admin: 11/18/19 11:26 Dose: Not Given Labetalol HCl (Normodyne) 10 mg SLOW IVP Q4H PRN PRN Reason: SBP Greater Than 180 Last Admin: 11/17/19 18:25 Dose: 10 mg Metoprolol Succinate (Toprol Xl) 25 mg PO BID [facility] Last Admin: 11/18/19 11:25 Dose: Not Given Morphine Sulfate (Morphine) 2 mg SLOW IVP Q4H PRN PRN Reason: Severe Pain (7-10) Last Admin: 11/18/19 06:31 Dose: 2 mg Ondansetron HCl (Zofran Odt) 4 mg PO Q6H PRN PRN Reason: Nausea/Vomiting Last Admin: 11/18/19 15:30 Dose: 4 mg Ondansetron HCl (Zofran) 4 mg IVP Q6H PRN PRN Reason: Nausea/Vomiting Pantoprazole Sodium (Protonix) 40 mg PO DAILY [facility] Last Admin: 11/18/19 11:26 Dose: Not Given Tresiba (Insulin (Degludec)) 0 each SC DAILY [facility] Promethazine HCl (Phenergan) 25 mg PO DAILYPRN PRN PRN Reason: Nausea Promethazine HCl (Phenergan) 12.5 mg IM/IV Q6H PRN PRN Reason: Nausea/Vomiting Pyridoxine HCl (Vitamin B 6) 50 mg PO DAILY [facility] Last Admin: 03/03/20 11:27 Dose: Not Given Sodium Chloride (Flush - Normal Saline) 10 ml IVF Q12HR [facility] Last Admin: 11/18/19 11:27 Dose: Not Given Sodium Chloride (Flush - Normal Saline) 10 ml IVF PRN PRN PRN Reason: Saline Flush Last Admin: 11/18/19 06:33 Dose: 10 ml Vital Signs & Weight: Vital Signs Temp Pulse Resp BP BP Pulse Ox 11/18/19 15:57 99 F 75 16 160/69 H 93 L 11/18/19 11:35 98.1 F 74 14 137/62 93 L 11/18/19 07:28 99.7 F H 74 16 126/58 L 92 L 11/18/19 06:20 72 16 132/63 Weight 165 lb 1.6 oz I/O: I/O 11/17/19 11/18/19 11/19/19 06:59 06:59 06:59 Intake Total 920 Output Total 300 Balance 620 - Physical Exam General: alert & oriented x3, appears well, no apparent distress, speech clear, affect appropriate HEENT: mucus membranes moist, normocephaly Neck: supple neck, midline trachea, no JVD/HJR, no lymphadenopathy Cardiology: regular rate and rhythm, no murmur, PMI nondisplaced Lungs: clear to auscultation, normal breath sounds, no wheeze, rales, rhonchi Neurology: cranial nerve 2-12 intact, sensory function intact, no lateralizing findings Skin: device site stable w/o swelling, bruising (minimal), right sided device. negative: drainage, erosion, hematoma - Labs Result Diagrams: 11/17/19 12:54 11/17/19 12:54 - EKG Interpretation EKG Method: Telemetry EKG shows: Sinus rhythm - Device Device: biventricular, defibrillator Device Result: [employer] - Assessment/Plan Assessment/Plan: MS. BARONE IS A PLEASANT 69-YEAR-OLD WOMAN WITH A HISTORY OF ISCHEMIC CARDIOMYOPATHY, SEVERELY REDUCED LEFT VENTRICULAR EJECTION FRACTION, AND END- STAGE RENAL DISEASE WHO ALSO HAS HAD A HISTORY OF CARDIAC ARREST IN CORRELATION WITH HER COLON-RESECTION SURGERY. HER LEFT VENTRICULAR EJECTION FRACTION REMAINS SEVERELY DEPRESSED, AND SHE IS AT RISK OF FUTURE MALIGNANT VENTRICULAR ARRHYTHMIAS. IN ADDITION TO THIS, SHE HAS SIGNIFICANT QRS WIDENING AT 164 MS, WITH BIFASCICULAR PATTERN. [employer] CLASS III FUNCTIONAL STATUS STILL PERSISTS, AND SHE WOULD BENEFIT FROM THE CONSIDERATION OF BIVENTRICULAR PACING. A right sided BiV ICD was implanted on 11/17/2019. Wires test normally. Unfortunately her DFT failed to terminate VT. She was admitted and labs check. She received HD yesterday, on schedule. K was 4.2 pre dialysis. I had hoped to re-test her device today and possibly add an additional lead if DFT failed again. Unfortunately the schedule did not permit this. I have ordered a diet. She is scheduled for this tomorrow AM. Afterwards, I would like her to receive HD then will likely be ok to DC home. 1. Ischemic cardiomyopathy 2. ESRD, HD on MWF 3. DM, type 2 4. BiVentricular ICD - failed DFT post implant - planned to retest and possibly add lead, pending DFT check.
--- NOTE | 2019-11-18 18:48 | PDOC.HOSPP ---
- Subjective Encounter Date: 11/18/19 Encounter Time: 12:30 Subjective: Patient seen and examined for med mngt. No CP/SOB/palpitations. No new complaints. No overnight events - Objective Vital Signs & Weight: Vital Signs (12 hours) Temp Pulse Resp BP BP Pulse Ox 11/18/19 15:57 99 F 75 16 160/69 H 93 L 11/18/19 11:35 98.1 F 74 14 137/62 93 L 11/18/19 07:28 99.7 F H 74 16 126/58 L 92 L 11/18/19 06:20 72 16 132/63 Weight Weight 165 lb 1.6 oz I&O: 11/17/19 11/18/19 11/19/19 06:59 06:59 06:59 Intake Total 920 240 Output Total 300 Balance 620 240 Result Diagrams: 11/17/19 12:54 11/17/19 12:54 Additional Labs: Accuchecks 11/18/19 11/18/19 11/18/19 16:41 10:33 06:11 POC Glucose 217 H 108 134 H 11/17/19 23:43 POC Glucose 99 EKG Reviewed by me: Yes (Tele SR) Hospitalist ROS - Review of Systems Respiratory: denies: cough, dry, shortness of breath, hemoptysis, SOB with excertion, pleuritic pain, sputum, wheezing, other Cardiovascular: denies: chest pain, palpitations, orthopnea, paroxysmal noc. dyspnea, edema, light headedness, other - Medication Medications: Active Medications Generic Name Dose Route Start Last Admin Trade Name Freq PRN Reason Stop Dose Admin Hydrocodone Bitart/Acetaminophen 1 tab 11/17/19 17:11 11/18/19 16:12 [place] 5/325 PO 1 tab Q4H PRN Administration Mild Pain (1-3) Hydrocodone Bitart/Acetaminophen 2 tab 11/17/19 17:11 11/17/19 18:18 [place] 5/325 PO 2 tab Q4H PRN Administration Moderate Pain (4-6) Acidophilus 1 tab 11/18/19 09:00 11/18/19 11:25 Floranex PO Not Given DAILY [facility] Atorvastatin Calcium 20 mg 11/17/19 21:00 11/18/19 00:12 Lipitor PO 20 mg HS [facility] Administration Cephalexin 250 mg 11/18/19 09:00 11/18/19 15:19 Keflex PO 11/27/19 21:01 250 mg TID [facility] Administration Cyanocobalamin 2,500 mcg 11/18/19 09:00 11/18/19 11:24 Vitamin B-12 PO Not Given DAILY [facility] Duloxetine HCl 60 mg 11/18/19 09:00 11/18/19 11:24 Cymbalta PO Not Given DAILY [facility] Ferrous Sulfate 325 mg 11/18/19 09:00 11/18/19 11:25 Feosol PO Not Given DAILY [facility] Gabapentin 300 mg 11/17/19 21:00 11/18/19 11:25 Neurontin PO Not Given BID [facility] Insulin Human Lispro 0 units 11/17/19 17:43 11/18/19 16:55 Humalog SC 3 units .MILD SLIDING SCALE PRN Administration Mild Correctional Scale Iron/Minerals/Multivitamins 1 tab 11/18/19 09:00 11/18/19 11:26 Theragran M PO Not Given DAILY [facility] Labetalol HCl 10 mg 11/17/19 17:12 11/17/19 18:25 Normodyne SLOW IVP 10 mg Q4H PRN Administration SBP Greater Than 180 Metoprolol Succinate 25 mg 11/17/19 21:00 11/18/19 11:25 Toprol Xl PO Not Given BID [facility] Morphine Sulfate 2 mg 11/17/19 17:10 11/18/19 06:31 Morphine SLOW IVP 2 mg Q4H PRN Administration Severe Pain (7-10) Ondansetron HCl 4 mg 11/17/19 17:11 11/18/19 15:30 Zofran Odt PO 4 mg Q6H PRN Administration Nausea/Vomiting Pantoprazole Sodium 40 mg 11/18/19 09:00 11/18/19 11:26 Protonix PO Not Given DAILY [facility] Pyridoxine HCl 50 mg 11/18/19 09:00 11/18/19 11:27 Vitamin B 6 PO Not Given DAILY [facility] Sodium Chloride 10 ml 11/17/19 21:00 11/18/19 11:27 Flush - Normal Saline IVF Not Given Q12HR [facility] Sodium Chloride 10 ml 11/17/19 18:00 11/18/19 06:33 Flush - Normal Saline IVF 10 ml PRN PRN Administration Saline Flush - Exam General Appearance: NAD Neck: supple, no JVD Heart: RRR, no gallops Respiratory: no wheezes, no ronchi Gastrointestinal: non-tender, normal bowel sounds Extremities: no cyanosis, no edema Hosp A/P - Plan DVT proph w/SCDs Chronic systolic HF ESRD on dialysis HTN ?UTI GERD CAD s/p stent - on ASA/Plavix DM2 Gout h/o Colon CA PLAN: Dialysis per Nephro AICD retest in AM Cont ASA/Plavix Cont Toprol Cont sliding scale Urine culture Cont Keflex for prophylaxis Not on ACEI/ARB/Aldactone due to ESRD
[2019-11-19] MEDS ORDERED: Propofol 500 MG/50 ML VIAL ONE (08:34)
[2019-11-19] MEDS ORDERED: Insulin Glargine 10 UNITS in Pre-Filled Syringe 1 EACH SC SCH (09:00)
[2019-11-19] MEDS ORDERED: PHENYLEPHRINE-NS 100 MCG/ML 10 ML SYRINGE ONE (09:52)
[2019-11-19] MEDS ORDERED: EPHEDRINE 25 MG/5 ML SYRINGE ONE (09:52)
[2019-11-19] MEDS ORDERED: Morphine Sulfate 2 MG/ML SYRINGE SLOW IVP PRN (10:08)
[2019-11-19] MEDS ORDERED: Ondansetron HCl/PF 4 MG/2 ML Vial IVP PRN (10:08)
[2019-11-19] MEDS ORDERED: Promethazine HCl 25 MG/ML VIAL IM PRN (10:08)
[2019-11-19] MEDS ORDERED: Promethazine HCl 25 MG/ML VIAL SLOW IVP PRN (10:08)
--- NOTE | 2019-11-19 10:47 | PRG ---
DATE OF SERVICE: 11/19/2019 SUBJECTIVE: Patient was seen and examined at bedside and overnight events noted. Patient denies any shortness of breath or chest pain or palpitation. No history of nausea or vomiting or diarrhea or fever or chills or cramps. OBJECTIVE: GENERAL: This is a well-built female, in no apparent distress. VITAL SIGNS: Temperature . Heart rate 67. Respiratory rate 14. Blood pressure 144/61. HEENT: Atraumatic, normocephalic. Oral mucosa is moist NECK: Supple. CARDIOVASCULAR: S1, S2 heard. Rate and rhythm regular. RESPIRATORY: Clear to auscultation. GASTROINTESTINAL: Abdomen is soft. MUSCULOSKELETAL: No tenderness. No edema. DERMATOLOGIC: No skin rash. NEUROLOGIC: Alert and awake and oriented X3. No focal neurologic deficits. Moving all the extremities. PSYCHIATRIC: Mood and affect normal. LABORATORY DATA: Potassium is 4.5, BUN is 56, creatinine is 6.2. ASSESSMENT AND PLAN: 1. End-stage renal disease, continue on dialysis as tolerated. 2. Edema, controlled. 3. Anemia. 4. History of hypertension. Plan to continue on dialysis as tolerated. Job ID: [id number]
[2019-11-19] MEDS ORDERED: Heparin 10,000 UNITS/ 10 ML VIAL ONE (10:57)
[2019-11-19] MEDS ORDERED: Acetaminophen/Codeine 30-300mg Tablet PO PRN ×2 (11:45)
[2019-11-19] MEDS: Cyanocobalamin (Vitamin B-12) 1,000 MCG TAB PO SCH (12:02)
[2019-11-19] MEDS: Gabapentin 300 MG CAP PO SCH (12:03)
[2019-11-19] MEDS: Lactinex Tablet PO SCH (12:03)
[2019-11-19] MEDS: DULoxetine 60 MG CAP PO SCH (12:03)
[2019-11-19] MEDS: Ferrous Sulfate 325 MG TAB PO SCH (12:03)
[2019-11-19] MEDS: Multivitamin W/ Minerals 1 TAB PO SCH (12:04)
[2019-11-19] MEDS: pyridOXINE 50 MG (B6) TAB PO SCH (12:06)
--- NOTE | 2019-11-19 12:07 | RAD ---
CHEST 1 VIEW PORTABLE: Date: 11/19/2019 HISTORY: Follow-up recent ICD placement. COMPARISON: 11/17/2019. FINDINGS: Right ICD. Left dual lumen venous access catheter. Stable linear horizontal parenchymal change in the right lower lobe. No pneumothorax or pleural effusion. IMPRESSION: 1. Stable right ICD and left venous access catheter. 2. Minimal increased markings in the right lower lobe with mild right hemidiaphragm elevation. 3. No pneumothorax or significant pleural effusion. POS: [facility]
[2019-11-19] MEDS: Cephalexin 250 MG CAP PO SCH (12:16)
[2019-11-19 12:20] VITALS: BP 159/76; TEMP 97.5
--- NOTE | 2019-11-19 13:11 | PDOC.HOSPP ---
- Subjective Encounter Date: 11/19/19 Encounter Time: 12:00 Subjective: Patient seen and examined for med mngt. No new complaints. No overnight events - Objective Vital Signs & Weight: Vital Signs (12 hours) Temp Pulse Resp BP Pulse Ox 11/19/19 11:45 97.5 F L 63 18 159/76 H 92 L 11/19/19 03:53 98.0 F 67 14 144/61 H 92 L Weight Weight 168 lb 14.4 oz I&O: 11/18/19 11/19/19 11/20/19 06:59 06:59 06:59 Intake Total 920 480 Output Total 300 Balance 620 480 Result Diagrams: 11/17/19 12:54 11/17/19 12:54 Additional Labs: Accuchecks 11/19/19 11/18/19 11/18/19 10:50 19:54 16:41 POC Glucose 163 H 191 H 217 H EKG Reviewed by me: Yes (Paced) Hospitalist ROS - Review of Systems Respiratory: denies: cough, dry, shortness of breath, hemoptysis, SOB with excertion, pleuritic pain, sputum, wheezing, other Cardiovascular: denies: chest pain, palpitations, orthopnea, paroxysmal noc. dyspnea, edema, light headedness, other Gastrointestinal: denies: nausea, vomiting, abdominal pain, diarrhea, constipation, melena, hematochezia, other - Medication Medications: Active Medications Generic Name Dose Route Start Last Admin Trade Name Freq PRN Reason Stop Dose Admin Hydrocodone Bitart/Acetaminophen 1 tab 11/17/19 17:11 11/18/19 16:12 Williamson 5/325 PO 1 tab Q4H PRN Administration Mild Pain (1-3) Acidophilus 1 tab 11/18/19 09:00 11/19/19 12:03 Floranex PO 1 tab DAILY PASCUAL Administration Atorvastatin Calcium 20 mg 11/17/19 21:00 11/18/19 20:10 Lipitor PO 20 mg HS PASCUAL Administration Cyanocobalamin 2,500 mcg 11/18/19 09:00 11/19/19 12:02 Vitamin B-12 PO 2,500 mcg DAILY PASCUAL Administration Duloxetine HCl 60 mg 11/18/19 09:00 11/19/19 12:03 Cymbalta PO 60 mg DAILY PASCUAL Administration Ferrous Sulfate 325 mg 11/18/19 09:00 11/19/19 12:03 Feosol PO 325 mg DAILY PASCUAL Administration Gabapentin 300 mg 11/17/19 21:00 11/19/19 12:03 Neurontin PO 300 mg BID PASCUAL Administration Insulin Glargine 10 units/ 0.1 mls @ 0 mls/hr 11/19/19 09:00 11/19/19 12:06 Miscellaneous Medication SC Not Given QAM [facility] Insulin Human Lispro 0 units 11/17/19 17:43 11/18/19 16:55 Humalog SC 3 units .MILD SLIDING SCALE PRN Administration Mild Correctional Scale Iron/Minerals/Multivitamins 1 tab 11/18/19 09:00 11/19/19 12:04 Theragran M PO 1 tab DAILY [facility] Administration Labetalol HCl 10 mg 11/17/19 17:12 11/17/19 18:25 Normodyne SLOW IVP 10 mg Q4H PRN Administration SBP Greater Than 180 Metoprolol Succinate 25 mg 11/17/19 21:00 11/19/19 12:06 Toprol Xl PO Not Given BID [facility] Morphine Sulfate 2 mg 11/17/19 17:10 11/18/19 06:31 Morphine SLOW IVP 2 mg Q4H PRN Administration Severe Pain (7-10) Ondansetron HCl 4 mg 11/17/19 17:11 11/18/19 15:30 Zofran Odt PO 4 mg Q6H PRN Administration Nausea/Vomiting Pantoprazole Sodium 40 mg 11/18/19 09:00 11/19/19 12:04 Protonix PO 40 mg DAILY PASCUAL Administration Pyridoxine HCl 50 mg 11/18/19 09:00 11/19/19 12:06 Vitamin B 6 PO 50 mg DAILY [facility] Administration Sodium Chloride 10 ml 11/17/19 21:00 11/19/19 12:06 Flush - Normal Saline IVF Not Given Q12HR [facility] - Exam General Appearance: NAD Neck: supple, no JVD Heart: RRR, no gallops Respiratory: no wheezes, no rales Gastrointestinal: non-tender, non-distended, normal bowel sounds Extremities: no cyanosis Hosp A/P - Plan DVT proph w/SCDs Chronic systolic HF ESRD on dialysis HTN UTI - prob ruled out - Cultures negative GERD CAD s/p stent - on ASA/Plavix DM2 Gout h/o Colon CA PLAN: Dialysis today Cont ASA/Plavix/Toprol Cont sliding scale Cont Keflex for prophylaxis Not on ACEI/ARB/Aldactone due to renal dysfunction Cont other meds as above
[2019-11-19] MEDS ORDERED: Cephalexin 250 MG CAP PO SCH ×2 (14:00→15:00)
--- NOTE | 2019-11-20 07:55 | DIS ---
DATE OF ADMISSION: 11/17/2019 DATE OF DISCHARGE: 11/19/2019 This is Kianna Brewster NP, dictating as scribe for Fermín Samuels MD. DIAGNOSES: Ischemic cardiomyopathy, left bundle-branch block, end-stage renal disease, and biventricular ICD management. HISTORY OF PRESENT ILLNESS: Ms. Bruce is a pleasant 69-year-old woman with a history of ischemic cardiomyopathy, severely reduced ejection fraction, and end-stage renal disease, who also has a history of cardiac arrest in correlation with her colon resection surgery. Her left ventricular ejection fraction remains severely depressed and she was at risk for future malignant ventricular arrhythmias. In addition to that, she had a significantly widened QRS at 164 milliseconds with bifascicular pattern. She is NYHA functional class III status and it was determined that she would likely benefit from the implantation of biventricular ICD. Device was placed on 11/17/2019, it is a right-sided device as there is a presence of left-sided tunneled catheter. Following her ICD implants, DFT was performed, but unfortunately failed to terminate her VT and restore sinus rhythm. Her wires were well positioned and were testing normally with appropriate sensing and capture thresholds. She was admitted to observation to check labs as she is an end-stage renal patient and also to continue her dialysis as we manage her ICD. This morning, she was taken back to the EP lab and underwent repeat DFT test, but eventually required RV lead repositioning, which then resulted in successful DFT. Her oil recovery unit operator was consulted and has been managing her hemodialysis during her stay. Her post device recovery is complete and she is being dialyzed today and discharging after dialysis. Hospitalist care was also consulted to manage medical issues throughout her stay. There is some concern for urinary tract infection. Cultures were negative and hospitalist and Nephrology have cleared her for discharge. SUBJECTIVE: Ms. Bruce feels well. She is eager for discharge home. She does not have any medical concerns or complaints today. OBJECTIVE: VITAL SIGNS: Temperature 97.5, pulse 63, blood pressure 144/61, respirations 14, and oxygen is 94% on room air. GENERAL: She is alert and oriented. Speech is clear. Affect is appropriate. She is in no apparent distress at the time of the exam. Her right-sided device incision is somewhat swollen with minimal bruising, but edges are well approximated. There is no drainage or signs of complication at this time. Dermabond is over the site. HEART: Rate is regular. LUNGS: Clear to auscultation. ABDOMEN: Soft and nontender without palpable masses. EXTREMITIES: Warm and dry to touch. NEUROLOGIC: Grossly intact with no focal deficits. Gait was not assessed. LABORATORY DATA: Chest x-ray today shows stable results with no evidence of pneumothorax. 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 DISCHARGE INSTRUCTIONS: Keep incision clean and dry. Take post implant antibiotics x1 week. Two-week wound and device check will be arranged with [facility]. Continue with regular dialysis schedule as guided by Dr. Spring. I will be resuming her home medications with the addition of Keflex 500 mg t.i.d. x7 days. No additional medication changes were made. CONDITION AT DISCHARGE: Stable. Job ID: [id number]
--- NOTE | 2019-11-20 08:31 | EKG ---
Test Reason : POST ICD WIRE CHGOUT Blood Pressure : / mmHG Vent. Rate : 066 BPM Atrial Rate : 066 BPM P-R Int : 112 ms QRS Dur : 150 ms QT Int : 474 ms P-R-T Axes : 019 -61 -41 degrees QTc Int : 496 ms Electronic ventricular pacemaker When compared with ECG of 06-NOV-2019 17:04, Electronic ventricular pacemaker has replaced Sinus rhythm Confirmed by DR. Augusto SMALLWOOD ([id number]) on 11/20/2019 8:31:14 AM Referred By: BRIE Confirmed By:DR. Augusto SMALLWOOD
[2019-11-20] MEDS ORDERED: Clopidogrel Bisulfate 75 MG TAB PO SCH (09:00)
[2019-11-20] MEDS ORDERED: Aspirin Chewable 81 MG TAB PO SCH (09:00)
== END 2019-11-19 20:00 | disposition home or self-care (01) ==
LOC: SDC 07:51 → 2SW 12:12
PROVIDERS: ADMIT Internal Medicine Cardiovascular Disease; ATTEND Internal Medicine Cardiovascular Disease
PROC: 02H63KZ Insertion of Defibrillator Lead into Right Atrium, Percutaneous Approach (ICD-10-PCS; principal; 2019-11-17)
PROC: 0JWT0PZ Revision of Cardiac Rhythm Related Device in Trunk Subcutaneous Tissue and Fascia, Open Approach (ICD-10-PCS; 2019-11-17)
DX: I25.5 Ischemic cardiomyopathy (principal); I44.7 Left bundle-branch block, unspecified; I13.2 Hypertensive heart and chronic kidney disease with heart failure and with stage 5 chronic kidney disease, or end stage renal disease; E11.22 Type 2 diabetes mellitus with diabetic chronic kidney disease; N18.6 End stage renal disease; I50.22 Chronic systolic (congestive) heart failure; D63.1 Anemia in chronic kidney disease; I25.10 Atherosclerotic heart disease of native coronary artery without angina pectoris; F32.9 Major depressive disorder, single episode, unspecified; H54.8 Legal blindness, as defined in USA; Z79.4 Long term (current) use of insulin; Z79.82 Long term (current) use of aspirin; Z79.899 Other long term (current) drug therapy; Z88.5 Allergy status to narcotic agent; Z91.040 Latex allergy status; Z88.2 Allergy status to sulfonamides; Z88.8 Allergy status to other drugs, medicaments and biological substances; Z99.2 Dependence on renal dialysis
CPT/HCPCS: 33225; 33226; 33249; 36005; 71045 ×2; 75820; 80048; 82962 ×3; 85025; 87086; 93005; 93642; 96365; 96375 ×2; 96376; C1777; C1882; C1898; C1900; G0378 ×3; 36415; 36416; 81003; 81015; 90935; G0257; J0690; J1644; J1815; J2250; J2270; J2704; J3010; J3490; Q0162; Q9967

== ENCOUNTER 2020-04-06 07:20 | Outpatient (CLI) | payer MEDICARE ==
--- NOTE | 2020-04-06 12:15 | PET ---
PET CT: HISTORY: 69-year-old female with malignant neoplasm of transverse colon. Exam requested to evaluate for treatm ent response. TECHNIQUE: PET scanning with CT attenuation correction was performed from the base of the brain through the prox imal thighs following the intravenous administration of 11.3 mCi [id number] in the right antecubital fos sa. COMPARISON: PET CT dated 08/28/2019. FINDINGS: No madi hypermetabolism is seen in the neck, chest, axilla, abdomen, pelvis, or inguinal regions. No hypermetabolic pulmonary nodules or liver, adrenal, or skeletal lesions are seen. There is physiologic activity in the heart, GI and tracts, and the visualized portions of the brai n. The CT scan used for attenuation correction demonstrates massive ascites and cholelithiasis. The prev iously noted right pleural effusion has resolved in the interim. IMPRESSION: 1. No evidence of hypermetabolic lesions. 2. Massive ascites. 3. Interval resolution of right pleural effusion. POS: [facility]IL[facility]
== END 2020-04-06 07:21 | disposition home or self-care (01) ==
LOC: PET 07:20
PROVIDERS: ATTEND Internal Medicine Hematology & Oncology
DX: C18.4 Malignant neoplasm of transverse colon (principal); R18.8 Other ascites; J90 Pleural effusion, not elsewhere classified
CPT/HCPCS: 78815; A9552; 87077; 87086; 87186

== ENCOUNTER 2020-06-04 15:32 | Inpatient (IN) | payer MEDICARE, MEDICAID, OTHER ==
[~2020-06-04 15:32] MED LIST changes: +Amiodarone 150 MG/3 ML VIAL ONE; -Bupivacaine/Epinephrine 0.25% 30 ML VIAL ONE; +Calcium Chloride 1 GM/10 ML Abboject SYRINGE ONE; +Lidocaine 1% PF 5 ML VIAL ONE; -Lidocaine 2% PF 5 ML VIAL ONE; +PHENYLEPHRINE-NS 100 MCG/ML 10 ML SYRINGE ONE; +Rocuronium Bromide 10 MG/ML (10ML VIAL) ONE; +Sodium Bicarb 50 MEQ/50 ML Abboject 8.4% SYRINGE ONE; -Sodium Chloride 0.9% 100 ML ONE; -cefTRIAXone\\ROCEPHIN 1 GM VIAL ONE
[2020-06-04] MEDS ORDERED: Cefepime 2 GM VIAL ONE ×2 (16:27→17:07)
--- NOTE | 2020-06-04 16:31 | RAD ---
EXAM: Single view of the chest HISTORY: Shortness of breath COMPARISON: 11/19/2019 and PET/CT 04/06/2020 FINDINGS: Single view of the chest shows an enlarged but stable cardiomediastinal silhouette. The pa cemaker is unchanged in position. There is a left sided dialysis catheter with its tip in the superior vena cava. Atherosclerotic calcifications are seen in the aorta. There is no evidence of con solidation, mass, or pleural effusion. Degenerative changes are seen in the spine. Hardware is seen in the left humerus. IMPRESSION: No evidence of acute cardiopulmonary disease
[2020-06-04 17:37] LABS: Mean Corpuscular HGB CONC 29.7 g/dL (32.0-36.0); Mean Platelet Volume 12.6 fL (7.4-10.4); Platelet Count 62 thou/uL (130-400); RBC Distribution Width 13.8 % (11.5-14.5); Red Blood Cell (RBC) Count 3.32 mill/uL (4.20-5.40); White Blood Cell (WBC) Count 5.8 thou/uL (4.8-10.8)
[2020-06-04 17:45] LABS: ALT (SGPT) 29 U/L (8-55); AST (SGOT) 29 U/L (5-34); Albumin 2.9 g/dL (3.4-4.8); Alkaline Phosphatase 94 U/L (40-110); Anion Gap 20 mmol/L (10-20); BUN (Urea Nitrogen) 85 mg/dL (9.8-20.1); Bilirubin, Total 0.8 mg/dL (0.2-1.2); Calc. Creatinine Clearance 0 mL/min (70-130); Calcium 7.5 mg/dL (7.8-10.44); Carbon Dioxide 17 mmol/L (23-31); Chloride 98 mmol/L (98-107); Estimated GFR-MDRD 5; Globulin 3.2 g/dL (2.4-3.5); Glucose 266 mg/dL (83-110); Potassium 4.1 mmol/L (3.5-5.1); Protein, Total 6.1 g/dL (6.0-8.3); Sodium 131 mmol/L (136-145)
[2020-06-04 17:50] LABS: Band 28 % (5-11); Lymphocytes 3 % (21-51); MDiff Complete? YES; Macrocytosis SLIGHT = 6-15 cells (100X) (0-5/hpf); Monocytes 1 % (0-10); Neutrophil 68 % (42-75); Ovalocytes SLIGHT = 2-5 cells (100X) (0-1/hpf); Platelet Morphology Comment Appears Decreased; Polychromasia SLIGHT = 2-3 cells (100X) (0-2/hpf); Vacuoles SLIGHT
--- NOTE | 2020-06-04 18:06 | ULT ---
US Ext Art Graft Upr Uni History: Pain. Infection Comparison: None. Findings: Real-time grayscale, color and spectral analysis of the left upper extremity graft was perf ormed. Flow is seen within the graft with minimal peripheral debris along a perigraft fluid collection which groin to the technologist indicates the skin surface and there is pus coming from the skin defect. Impression: Findings suggestive of a perigraft infection with pus coming to the skin surface at the s [place] location of the collection adjacent to the graft which measures up to 2 cm in size which is also the same location of the debris within the patent graft.
[2020-06-04 18:23] LABS: CKMB 2.3 ng/mL (0-6.6)
[2020-06-04] MEDS ORDERED: Fentanyl 100 MCG/2 ML VIAL ONE (18:51)
[2020-06-04] MEDS ORDERED: Lorazepam 2 MG/ML VIAL ONE (19:29)
[2020-06-04] MEDS ORDERED: Norepinephrine 8 MG/0.9% NS 250 ML IVPB SCH (19:45)
[2020-06-04] MEDS ORDERED: methylPREDNISolone Sod Succ/PF 125 MG/2 ML VIAL ONE (20:07)
[2020-06-04] MEDS ORDERED: Diltiazem 125 MG/25 ML ONE (20:16)
[2020-06-04] MEDS ORDERED: Magnesium 2 GM/50 ML BAG (IN WATER) ONE (20:20)
[2020-06-04 20:37] LABS: Base Excess-Venous -2.9 mmol/L (-2.0 to 3.0); Bicarbonate (HCO3v) 22.6 mmol/L (22.0-28.0); Calcium, Ionized 1.22 mmol/L (See Comments:); Chloride 99 mmol/L (98-107); Hemoglobin - Calc 11.9 g/dL (12.0-16.0); Potassium 3.8 mmol/L (3.5-5.1); Sodium 135 mmol/L (138-145); T. Carbon Dioxide 23.8 mmol/L (22.0-28.0); vO2 Saturation-calc 57.3 % (60.0-85.0)
[2020-06-04] MEDS ORDERED: Lidocaine 2% PF 5 ML VIAL ONE (20:37)
[2020-06-04] MEDS ORDERED: Bupivacaine 0.25% HCL 30 ML VIAL ONE (20:37)
[2020-06-04] MEDS ORDERED: Protamine Sulfate 250 MG/25 ML VIAL ONE (20:37)
[2020-06-04] MEDS ORDERED: Heparin 5,000 UNITS/ML VIAL ONE (20:37)
[2020-06-04] MEDS ORDERED: Lidocaine 1% w/Epinephrine 1:100K 20 ML VIAL ONE (20:37)
[2020-06-04] MEDS ORDERED: Vancomycin 1 GM/200 ML BAG ONE (20:40)
--- NOTE | 2020-06-04 20:42 | CON ---
DATE OF CONSULTATION: REASON FOR CONSULT: Infected dialysis graft. HISTORY OF PRESENT ILLNESS: Ms. Bruce is a 70-year-old woman with end-stage renal failure, on dialysis for the past year, so she states that she had a left upper arm AV graft placed at [facility] about a month ago and they immediately started using it for dialysis access. She states that it has been swollen for some time, but started getting red earlier this week. She states that the nurses had trouble accessing it on Sunday and made an appointment for her to see her vascular surgeon at [facility] on Sunday. She went to that appointment and was scheduled for an ultrasound and followup next week. She did not make it to dialysis on Sunday because of doctor's appointment and today she was having diarrhea as she did not go to her dialysis appointment. Her last full dialysis was Sunday; they used her graft for inflow and her dialysis catheter for outflow. As far she knows, her dialysis catheter is working okay, but they have not used it for a few weeks because they have been using the graft. She came to the hospital today because she was feeling very weak and unwell. Her arm was red and warm to the touch and she was worried about that as well. She has been dizzy and weak. Has not had any fevers or chills. She was initially seen at [facility] in [place] and transferred here for further care. PAST MEDICAL HISTORY: She has an extensive past medical history. She had a heart attack about a year ago and has a defibrillator in place since that time, that is also when her kidneys started to fail. She has a colon cancer for which I did a colon resection in summer and has been following up with Dr. Moya for this issue. She has a history of heart failure. She also has diabetes, hypertension, chronic anemia, gout, legal blindness, and depression. PAST SURGICAL HISTORY: Coronary stents, cataract surgery and retinal surgery for diabetes, , tonsillectomy, and extended left hemicolectomy. MEDICATIONS: The patient is on aspirin and Plavix, gabapentin, lisinopril, pantoprazole, Colcrys, Lasix, carvedilol, simvastatin, and duloxetine. ALLERGIES: SHE REPORTS ALLERGIES TO LATEX, SULFA, AND ALLOPURINOL. FAMILY HISTORY: Noncontributory. REVIEW OF SYSTEMS: Ten-system review of systems is negative except per HPI. She denies any cough, sore throat, shortness of breath. PHYSICAL EXAMINATION: VITAL SIGNS: Temperature 98.4, heart rate 103, respirations 21, blood pressure 107/49 that dips down into the 80s systolic recently. GENERAL: Reveals a chronically ill-appearing frail woman, in no acute distress, who is able to converse and give a good history. HEENT: Unremarkable. Pupils are equal. Extraocular movements are intact. NECK: Supple without lymphadenopathy or thyroid nodules. HEART: Tachycardic, but regular. I do not appreciate any murmurs, rubs, or gallops. She has a left internal jugular tunneled dialysis catheter in place, which is not red, tender, or swollen. She has a right AICD in place, which is not tender, red, or swollen. ABDOMEN: Soft and nondistended. She has mild tenderness to palpation in the epigastrium, but no rigidity, rebound, or guarding. No palpable masses or hernias. Her laparoscopic colectomy scars are well healed. No palpable hernias. EXTREMITIES: Warm and well perfused. She has some edema at her ankles. Her left arm has a graft in place which is remarkably swollen, red, and tender along almost the entire length, but mostly over the lower portion. I do not hear bruit or feel a thrill in the graft, although a recent duplex did show flow within the graft. ASSESSMENT: Infected left upper arm AV graft. The patient states that the nurses have always commented on how it is quite wide and I suspect that she had hematoma around the graft due to accessing it too soon after surgery. Now this hematoma has become infected. I do not think the graft is salvageable as I do not hear any flow within it and also it extends very close to the arterial anastomosis and I do not know if there was enough length to bypass it through a clean field. I suspect that we will need to just resect the graft and do wound care to the arm afterwards with a VAC dressing. In addition, I do not think she has enough uninvolved arm to create a bypass around the infected field without going out onto the back of the arm, which would be difficult for the nurses to access. I will examine it under ultrasound in the operating room and if salvage is feasible, consider this. However, I believe that the graft is likely not salvageable. Blood cultures will be sent and she will be admitted to the ICU postoperative for IV antibiotics. Hopefully, her AICD and tunneled dialysis catheter are not involved with the infection, but clearly the source is the arm. Cultures will be sent. Her prognosis is guarded due to her multiple medical comorbidities. Job ID: [id number]
[2020-06-04 20:52] LABS: Lactic Acid 2.1 mmol/L (0.5-2.2)
[2020-06-04] MEDS ORDERED: Phenylephrine 10 MG/ML VIAL ONE (21:40)
[2020-06-04] MEDS ORDERED: Propofol BOLUS 1,000 MG/100 ML VIAL IV PRN (23:15)
[2020-06-04] MEDS ORDERED: fentaNYL Citrate/PF 2,000 MCG in Sodium Chloride 0.9% 60 ML IV SCH (23:15)
[2020-06-04] MEDS ORDERED: Fentanyl BOLUS 250 ML IVPB PRN (23:15)
[2020-06-04] MEDS ORDERED: Propofol 1,000 MG/100 ML VIAL IV PRN (23:15)
[2020-06-04] MEDS ORDERED: Lorazepam 2 MG/ML VIAL SLOW IVP PRN (23:15)
[2020-06-04] MEDS ORDERED: DISCONTINUE PREVIOUS NARCOTIC PAIN MEDICATIONS AND BENZODIAZEPINES FS SCH (23:15)
[2020-06-04 23:36] LABS: Actual Bicarbonate (HCO3a) 17.7 mEq/L (22-28); Base Excess (BEa) -8.3 mEq/L (-2.0 to +3.0); CO2 Tension 38.4 mmHg (35.0-45.0); Carboxyhemoglobin (COHb) 0.7 gm% (0.0-3.0); Hemoglobin (Hb) 11.6 g/dL (12.0-16.0); O2 Tension (PaO2), arterial 131.9 mmHg (> 70.0); Potassium - ABG Lab 4.22 mmol/L (3.70-5.30); pH, Arterial 7.28 (7.35-7.45)
[2020-06-05] MEDS ORDERED: Guaifenesin DM 100-10/5 ML UDCUP PO PRN (00:25)
[2020-06-05] MEDS ORDERED: Labetalol HCl 100 MG/20 ML VIAL SLOW IVP PRN (00:25)
[2020-06-05] MEDS ORDERED: Promethazine HCl 12.5 MG in Sodium Chloride 0.9% 50 ML IVPB PRN (00:25)
[2020-06-05] MEDS ORDERED: hydrALAZINE 20 MG/ML VIAL SLOW IVP PRN (00:25)
[2020-06-05] MEDS ORDERED: cloNIDine 0.1 MG TAB PO PRN (00:25)
[2020-06-05 00:28] LABS: Albumin 2.9 g/dL (3.4-4.8)
[2020-06-05 00:29] LABS: Chloride 100 mmol/L (98-107); Potassium 4.3 mmol/L (3.5-5.1); Sodium 133 mmol/L (136-145)
[2020-06-05] MEDS ORDERED: Vancomycin 1 GM in Premix Bag 1 BAG IVPB ONE (00:29)
[2020-06-05 00:30] LABS: Calcium 7.9 mg/dL (7.8-10.44); Glucose 270 mg/dL (83-110)
[2020-06-05] MEDS ORDERED: Ventilator Sedation Protocol 1 EACH FS SCH (00:30)
[2020-06-05] MEDS ORDERED: Mag-Al 1200 mg/1200 mg/30 ML UDCUP PO PRN (00:30)
[2020-06-05] MEDS ORDERED: Phenylephrine 10 MG/NS 250 ML 250 ML IVPB PRN (00:30)
[2020-06-05] MEDS ORDERED: Bisacodyl 10 MG SUPP PR PRN (00:30)
[2020-06-05] MEDS ORDERED: Bisacodyl 5 MG TAB PO PRN (00:30)
[2020-06-05] MEDS ORDERED: Milk Of Magnesia 30 ML UDCUP PO PRN (00:30)
[2020-06-05 00:31] LABS: Protein, Total 5.9 g/dL (6.0-8.3)
[2020-06-05 00:32] LABS: Anion Gap 20 mmol/L (10-20); Bilirubin, Total 1.1 mg/dL (0.2-1.2); Carbon Dioxide 17 mmol/L (23-31)
[2020-06-05 00:33] LABS: Alkaline Phosphatase 83 U/L (40-110)
--- NOTE | 2020-06-05 00:33 | PDOC.HHP ---
Hospitalist HPI - History of Present Illness Malaise History of Present Illness: Patient is a 70 year old female with PMH ESRD, IDDM, HTN, systolic and diastolic CHF w/ pacemaker who presents to ED as transfer from [place] for malaise, infected AV graft. Patient is in ICU after emergent surgery, history obtained from chart review. She originally presented to [facility] today for malaise, she has an AV graft was placed at [facility] a month ago, used immediately for HD, apparantly becoming swollen for some time and this week became red w/ malaise for last few days. She had HD a few days ago and L arm fistula was working then, has apparantly not had HD since Sunday. She was transferred here from [facility], L AV graft hot and no thrill palpated in ED, temperature 103.1, received 30 cc/kg bolus, vancomycin/cefepime, cultures sent, duplex L arm revealed perigraft infection w/ pus coming to skin surface from 2cm collection near graft. Dr Garcia consulted and suspected hematoma around graft became infected, taken for emergent surgery by Dr Garcia and admitted to CCU afterwards. She is intubated and sedated, on diltiazem drip and levophed for septic shock. Labs significant for hyponatremia w/ Na 133, metabolic acidosis, elevated troponin. Dr Spring of nephrology consulted and plans for HD tonight. Of note AICD went off in ED for arrhtyhmia/Vtach runs, she converted to Afib w/ RVR. Patient admitted to hospitalist service for further workup and care. Hospitalist ROS - Review of Systems ROS unobtainable: due to endotracheal tube All other systems reviewed; all pertinent +/- noted in HPI/Subj - Medication Medications: gabapentin CAPSULE : Strength - 300 mg : ORAL Patient Dose: 2 times a day. clopidogrel TABLET : Strength - 75 mg : ORAL Patient Dose: once a day. lisinopril TABLET : Strength - 20 mg : ORAL Patient Dose: once a day. pantoprazole oral TABLET, DELAYED RELEASE (ENTERIC COATED) : Strength - 40 mg : ORAL Patient Dose: once a day. Colcrys TABLET : Strength - 0.6 mg : ORAL Patient Dose: 0.5 tab(s) Oral.every 2 weeks. Lasix oral TABLET : Strength - 40 mg : ORAL Patient Dose: once a day.as needed. aspirin oral TABLET : Strength - 81 mg : ORAL Patient Dose: 81 mg Oral once a day. carvedilol TABLET : Strength - 12.5 mg : ORAL Patient Dose: 12.5 mg Oral 2 times a day. simvastatin TABLET : Strength - 40 mg : ORAL Patient Dose: 40 mg Oral once a day. DULoxetine CAPSULE,DELAYED RELEASE (ENTERIC COATED) : Strength - 60 mg : ORAL Patient Dose: Unknown. Hospitalist History - Past Medical History Other Medical History: ESRD, IDDM, HTN, systolic and diastolic CHF w/ pacemake - Past Surgical History Other Surgical History: 4 cardiac stents, L arm AVF, cataract/retinal surgery, C section, tonsillectomy - Family History Family History: reports: no pertinent history - Social History Smoking Status: Never smoker Alcohol: reports: None Drugs: reports: none - Exam General - other findings: intubated, sedated Eye: PERRL, anicteric sclera ENT: normocephalic atraumatic, no oropharyngeal lesions, moist mucosa Neck: supple, symmetric, no JVD, no thyromegaly, no lymphadenopathy, no carotid bruit Heart: RRR, no murmur, no gallops, no rubs, normal peripheral pulses Respiratory: CTAB, no wheezes, no rales, no ronchi, normal chest expansion, no tachypnea, normal percussion Gastrointestinal: soft, non-tender, non-distended, normal bowel sounds, no palpable masses, no hepatomegaly, no splenomegaly, no bruit Extremities - other findings: L arm surgical dressing Skin: normal turgor, no lesions, no rashes Neurological - other findings: intubated, sedated, RASS -2 Musculoskeletal: normal tone, no muscle wasting Psychiatric - other findings: unable to evaluate Hospitalist Results - Labs Result Diagrams: 06/05/20 02:21 06/05/20 02:21 Lab results: WBC 5.8 thou/uL (4.8-10.8) 06/04/20 17:00 Hgb 11.0 g/dL (12.0-16.0) L 06/04/20 17:00 Hct 36.9 % (36.0-47.0) 06/04/20 17:00 MCV 111.0 fL (78.0-98.0) H 09/18/20 17:00 Plt Count 62 thou/uL (130-400) L 06/04/20 17:00 Band Neuts % (Manual) 28 % (5-11) H 06/04/20 17:00 VBG pCO2 41.0 mmHg (40.0-50.0) 06/04/20 20:39 VBG pO2 31.5 mmHg (35.0-45.0) L 06/04/20 20:39 Sodium 131 mmol/L (136-145) L 06/04/20 17:00 Potassium 4.1 mmol/L (3.5-5.1) 06/04/20 17:00 Chloride 98 mmol/L (98-107) 06/04/20 17:00 Carbon Dioxide 17 mmol/L (23-31) L 06/04/20 17:00 BUN 85 mg/dL (9.8-20.1) H 06/04/20 17:00 Creatinine 8.12 mg/dL (0.6-1.1) H 06/04/20 17:00 Glucose 266 mg/dL (83-110) H 06/04/20 17:00 Lactic Acid 2.1 mmol/L (0.5-2.2) 06/04/20 20:29 Calcium 7.5 mg/dL (7.8-10.44) L 06/04/20 17:00 Total Bilirubin 0.8 mg/dL (0.2-1.2) 06/04/20 17:00 AST 29 U/L (5-34) 06/04/20 17:00 ALT 29 U/L (8-55) 06/04/20 17:00 Alkaline Phosphatase 94 U/L (40-110) 06/04/20 17:00 CK-MB (CK-2) 2.3 ng/mL (0-6.6) 06/04/20 17:00 Troponin I 0.116 ng/mL (< 0.028) H 06/04/20 17:00 Serum Total Protein 6.1 g/dL (6.0-8.3) 06/04/20 17:00 Albumin 2.9 g/dL (3.4-4.8) L 06/04/20 17:00 Additional comment: VITAL SIGNS SunJun 04, 2020 21:04 GAUTAM Marcum [place] BP: 80/51 MAP: 60 Pulse: 110 Resp: 29 O2 sat: 100 on (Room Air) Time: 06/04/2020 21:04. labs, imaging reports, ed documents and consultation documents reviewed. Hospitalist H&P A/P - Plan Plan: Patient is a 70 year old female with PMH ESRD, IDDM, HTN, systolic and diastolic CHF w/ pacemaker who presents to ED as transfer from [place] for malaise, infected AV graft. # infected and thrombosed L arm AV fistula # septic shock secondary to infected AV fistula She originally presented to [facility] today for malaise, she has an AV graft was placed at [facility] a month ago, used immediately for HD, apparantly becoming swollen for some time and this week became red w/ malaise for last few days. L AV graft hot and no thrill palpated in ED, temperature 103.1, received 30 cc/kg bolus, vancomycin/cefepime, cultures sent, duplex L arm revealed perigraft infection w/ pus coming to skin surface from 2cm collection near graft. Dr Garcia consulted and taken for emergent surgery and admitted to CCU afterwards. She is intubated and sedated, on diltiazem drip and levophed for septic shock. Labs significant for hyponatremia w/ Na 133, metabolic acidosis, elevated troponin. Dr Spring of nephrology consulted and plans for HD tonight. Of note AICD went off in ED for arrhtyhmia/Vtach runs, she converted to Afib w/ RVR. - admit to CCU - continue vancomycin/zosyn - follow cultures - appreciate Dr Garcia of surgery intervention, follow up operative report once transcribed - continue phenylephrine/vasopressin and diltiazem for shock/arrhythmia - hold ASA/plavix, hold anticoagulation until cleared by surgery to resume, hold HTN meds # ESRD on HD # hyponatremia # metabolic acidosis - appreciate evaluation by nephrology, patient missed HD x 5 days reportedly, will recieve HD tonight w/ fluid removal # afib RVR, Vtach, AICD w/ shock # elevated troponin - had arrhtyhmia during workup, VT and AICD shock, suspect troponin elevation due to AICD shock and sepsis/shock and hypotension - continue diltiazem, resume home meds - echo ordered # T2DM - insulin dependant - continue home long acting insulin, SSI # HTN - 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
[2020-06-05 00:34] LABS: Calc. Creatinine Clearance 8 mL/min (70-130); Estimated GFR-MDRD 5
[2020-06-05 00:35] LABS: BUN (Urea Nitrogen) 87 mg/dL (9.8-20.1)
[2020-06-05 00:36] LABS: ALT (SGPT) 30 U/L (8-55); AST (SGOT) 26 U/L (5-34)
[2020-06-05 00:40] LABS: Lactic Acid 1.8 mmol/L (0.5-2.2)
[2020-06-05 00:41] LABS: Troponin I 0.201 ng/mL (< 0.028)
[2020-06-05 00:43] LABS: Puncture Site RBA
[2020-06-05] MEDS: Phenylephrine 40 MG in Sodium Chloride 0.9% 250 ML 250 ML IVPB SCH ×2 (00:52→21:20)
[2020-06-05] MEDS ORDERED: HOLD VANCOMYCIN FOR LEVEL >20 FS SCH (01:15)
--- NOTE | 2020-06-05 01:20 | CON ---
DATE OF CONSULTATION: 06/04/2020 CONSULTING PHYSICIAN: Dr. Herrera from ER. REASON FOR CONSULTATION: End-stage renal disease evaluation and care. REASON FOR ADMISSION: Infected graft. HISTORY OF PRESENT ILLNESS: This is a 70-year-old white female with a history of end-stage renal disease, heart failure, diabetes, hypertension, anemia, depression, neuropathy, came to the hospital with infected graft. She had a graft placed in [facility] and there was concern for infection due to warmth and redness. She also has some altered mentation. Family brought her to the hospital and she was found to have infected graft and she had immediate surgery by Dr. Garcia in the OR. She is in the CCU after the surgery, intubated currently, not able to give history. PAST MEDICAL HISTORY: Positive for end-stage renal disease, colon cancers, heart failure, diabetes, hypertension, chronic anemia, gout, and depression. PAST SURGICAL HISTORY: Dialysis access placement, fistula placement, , tonsillectomy, and hemicolectomy. HOME MEDICATIONS: Reviewed. ALLERGIES: SULFA, ALLOPURINOL, AND LATEX. SOCIAL HISTORY: No smoking, alcohol, or illicit drugs. FAMILY HISTORY: No history of kidney disease. REVIEW OF SYSTEMS: Could not be obtained as she is intubated. PHYSICAL EXAMINATION: GENERAL: Notes a well-built female, intubated. VITAL SIGNS: Reviewed. Blood pressure 120/73 on Manas-Synephrine. HEENT: Intubated. CV: S1 and S2 heard. RESPIRATORY: Clear anteriorly. GI: Abdomen is obese. MUSCULOSKELETAL: 1+ edema. DERMATOLOGIC: No skin rash. NEUROLOGIC: Intubated. LABORATORY DATA: Hemoglobin 11.0. Potassium 3.8, BUN is 85, creatinine is 8.1. ASSESSMENT AND PLAN: 1. End-stage renal disease. The patient is fluid overloaded per Anesthesia report and would like to have dialysis. The patient missed dialysis for almost five days now. Plan is to have dialysis tonight. Dialysis nurse notified. 2. Hyponatremia. 3. Acidosis. 4. Hypoalbuminemia. 5. History of hypertension. 6. Anemia, mild. 7. Infected graft, status post surgery and appreciate help from Surgery. Plan is to have dialysis due to fluid overload. Dialysis nurse notified. Thank you for the consult. We will follow. The patient remains high risk for complications and further issues due to multiple comorbidities and her presenting symptom. Job ID: [id number]
[2020-06-05 03:06] LABS: Phosphorus 4.4 mg/dL (2.3-4.7)
[2020-06-05 03:08] LABS: Band 30 % (5-11); Lymphocytes 4 % (21-51); MDiff Complete? YES; Macrocytosis SLIGHT = 6-15 cells (100X) (0-5/hpf); Mean Corpuscular HGB CONC 32.6 g/dL (32.0-36.0); Mean Corpuscular Hemoglobin 35.7 pg (27.0-31.0); Monocytes 1 % (0-10); Neutrophil 65 % (42-75); Platelet Count 70 thou/uL (130-400); Platelet Morphology Comment Appears Decreased; RBC Distribution Width 13.5 % (11.5-14.5); Red Blood Cell (RBC) Count 3.35 mill/uL (4.20-5.40); White Blood Cell (WBC) Count 10.5 thou/uL (4.8-10.8)
[2020-06-05 03:09] LABS: ALT (SGPT) 31 U/L (8-55); AST (SGOT) 28 U/L (5-34); Alkaline Phosphatase 92 U/L (40-110); Anion Gap 20 mmol/L (10-20); BUN (Urea Nitrogen) 66 mg/dL (9.8-20.1); Calc. Creatinine Clearance 10 mL/min (70-130); Calcium 8.3 mg/dL (7.8-10.44); Carbon Dioxide 19 mmol/L (23-31); Chloride 101 mmol/L (98-107); Estimated GFR-MDRD 7; Globulin 3.3 g/dL (2.4-3.5); Glucose 238 mg/dL (83-110); Magnesium 1.9 mg/dL (1.6-2.6); Potassium 3.8 mmol/L (3.5-5.1); Protein, Total 6.3 g/dL (6.0-8.3); Sodium 136 mmol/L (136-145)
[2020-06-05 03:23] LABS: HBSAg Index 0.66 S/CO (0-0.99); Hep B Surf Ag Non-Reactive S/CO (NonReactive)
[2020-06-05] MEDS: Diltiazem 125 MG in Sodium Chloride 0.9% 100 ML IVPB SCH ×2 (04:35→21:20)
[2020-06-05] MEDS: Piperacillin/Tazobactam 2.25 GM in Sodium Chloride 0.9% 100 ML IVPB SCH ×2 (05:43→17:26)
[2020-06-05] MEDS ORDERED: Non-Formulary Item 1 EACH (Insulin Degludec [Tresiba Flextouch U-100] 100 UNIT/ML Insuln. SC SCH (09:00)
[2020-06-05] MEDS ORDERED: Vancomycin HCl 750 MG in Sodium Chloride 0.9% 250 ML 250 ML IVPB SCH (09:00)
[2020-06-05] MEDS ORDERED: Vancomycin HCl 500 MG in Sodium Chloride 0.9% 100 ML IVPB SCH (09:00)
[2020-06-05] MEDS ORDERED: Piperacillin/Tazobactam 1.125 GM in Sodium Chloride 0.9% 100 ML IVPB SCH (09:00)
[2020-06-05] MEDS ORDERED: Vancomycin 1 GM in Premix Bag 1 BAG IVPB SCH (09:00)
[2020-06-05] MEDS ORDERED: Vancomycin HCl 1.25 GM in Sodium Chloride 0.9% 250 ML 250 ML IVPB SCH (09:00)
[2020-06-05 09:36] LABS: Vancomycin, Random 21.7 ug/mL (See Comment)
--- NOTE | 2020-06-05 09:40 | PDOC.OP ---
Operative Note - Operative Note Operative Note: PROCEDURE: Excision of infected left upper arm AV graft SURGEON: Kaz Garcia M.D. DATE: 06/04/2020 PREOPERATIVE DIAGNOSIS: Infected left upper arm AV graft POSTOPERATIVE DIAGNOSIS: Infected left upper arm AV graft HISTORY: Patient with end-stage renal failure and infected left upper arm AV graft. She is septic and has pus oozing from graft access sites. Emergent exclusion and excision of the graft to control sepsis was recommended. She is critically ill. FINDINGS: Large perigraft abscess. No obvious gross infection of the graft proximal and distal to the abscess. PROCEDURE IN DETAIL: After informed consent was obtained and appropriate pre operative antibiotics continue the patient was taken to the operating room where she was placed in the supine position and general endotracheal anesthesia was administered. She was prepped and draped in the standard sterile fashion and a sterile ultrasound used to identify the proximal and distal margins of the perigraft abscess. This extended quite close to the arterial anastomosis, and there was cellulitis overlying this area all the way to the anastomosis, but a short segment of graft without any obvious perigraft abscess was identified near the arterial anastomosis. Local anesthesia was infused to the skin and subcutaneous tissues overlying this area and a longitudinal incision made transverse to the course of the graft. The graft was dissected free circumferentially clamped and divided removing a segment of intervening graft. The graft was ligated proximally and distally in the end oversewn with a running 4-0 Prolene suture. A culture of the wound was sent to see if there was occult contamination at this level. The wound was then irrigated and the subcutaneous tissues between the 2 ends of the transected graft were reapproximated to create a barrier between the grossly infected graft and the arterial stump. The same process was carried out along the distal end of the graft along a segment of clinically normal non-cellulitic graft that had no perigraft fluid collection on ultrasound. An incision was then made overlying the obviously infected segment of graft and the perigraft abscess drained. Cultures were sent from this area as well and a moderate amount of pus and nonviable tissue on debrided from the wound. The entire intervening segment of graft was excised and the wound was copiously irrigated with warm saline. Hemostasis was obtained using Bovie el ectrocautery. The wound was packed with iodoform soaked Poonam wrap and covered with 4 x 4's Kerlix and an Romeo wrap. The patient was taken intubated to the critical care unit for further care. Estimated blood loss was minimal. Specimen is culture of the antecubital incision and of the perigraft abscess.
[2020-06-05] MEDS: Famotidine 40 MG/5 ML Oral Suspension PER TUBE SCH (09:41)
[2020-06-05] MEDS: Gabapentin 300 MG CAP PO SCH (09:41)
[2020-06-05] MEDS: Insulin Glargine 10 UNITS in Pre-Filled Syringe 1 EACH SC SCH (09:42)
[2020-06-05] MEDS: DULoxetine 60 MG CAP PO SCH (09:44)
--- NOTE | 2020-06-05 09:51 | PDOC.GSPN ---
Surgery Progress Note: Subj - Subjective Narrative: Patient received dialysis last night. 2 L of fluid removed. She is awake and overbreathing the vent and following commands. She was left intubated overnight as anesthesia felt that she was fluid overloaded. She is answering yes/no questions today. She indicates that her pain is under control. She still has a bandemia. Blood cultures are negative to date but wound cultures from the OR both indicate gram-positive cocci on Gram stain. She is afebrile and her blood pressure is low normal on pressors. The nurse states that they have been able to lower these by about half since she arrived in the critical care unit. Her lungs are clear to auscultation. Assessment/plan: Severe sepsis due to left upper arm infected AV graft. Status post excision of infected graft. I had hoped that the proximal segment near the anastomosis was uninvolved but Gram stain has come back positive for gram- positive cocci from this wound as well so I will open and VAC this also. Continue with antibiotics, to be tailored to culture results as they become available. Vent management per accounting machine mechanic, but I anticipate the patient will be able to be extubated now that she has been dialyzed. Still critically ill on pressors. Surgery Progress Note: Obj - Vital signs Vital signs: Vital Signs - Most Recent Temp Pulse Resp BP Pulse Ox 98.6 F 61 12 107/58 L 100 06/05/20 08:00 06/05/20 07:36 06/05/20 08:00 06/05/20 07:36 06/05/20 07:54 Surgery Progress Note: Results - Labs Result Diagrams: 06/05/20 02:21 06/05/20 02:21 Lab results: Laboratory Results - last 24 hr 06/04/20 06/04/20 06/04/20 00:03 00:03 23:30 WBC RBC Hgb Hct MCV MCH MCHC RDW Plt Count MPV Neutrophils % (Manual) Band Neuts % (Manual) Lymphocytes % (Manual) Monocytes % (Manual) Plt Morphology Comment Macrocytosis Specimen Type ARTERIAL Puncture Site RBA Bicarbonate Actual 17.7 L ABG pH 7.28 L ABG pCO2 38.4 ABG pO2 131.9 H ABG O2 Sat (Measured) 98.0 ABG O2 Content 16.1 L ABG Base Excess -8.3 L ABG Hematocrit 34.0 L ABG Hemoglobin 11.6 L ABG Oxyhemoglobin 97.0 ABG Carboxyhemoglobin 0.7 ABG Methemoglobin 0.30 ABG Deoxyhemoglobin 2.0 Angel Test NOT DONE A-a O2 Gradient 247.900 H Ionized Calcium 1.10 L Mode of Support SIMV Mechanical Rate 12 Inspired O2 60 Tidal Volume 450 Pressure Support 10 PEEP or CPAP 5.0 Sodium 133 L 133 L Potassium 4.3 4.22 Chloride 100 100 Carbon Dioxide 17 L Anion Gap 20 BUN 87 H Creatinine 8.13 H Estimated GFR (MDRD) 5 Glucose 270 H Lactic Acid Calcium 7.9 Phosphorus Magnesium Total Bilirubin 1.1 AST 26 ALT 30 Alkaline Phosphatase 83 Troponin I 0.201 H Serum Total Protein 5.9 L Albumin 2.9 L Globulin 3.0 Albumin/Globulin Ratio 1.0 L Random Vancomycin Hep Bs Antigen 06/05/20 06/05/20 06/05/20 00:03 02:21 02:21 WBC RBC Hgb Hct MCV MCH MCHC RDW Plt Count MPV Neutrophils % (Manual) Band Neuts % (Manual) Lymphocytes % (Manual) Monocytes % (Manual) Plt Morphology Comment Macrocytosis Specimen Type Puncture Site Bicarbonate Actual ABG pH ABG pCO2 ABG pO2 ABG O2 Sat (Measured) ABG O2 Content ABG Base Excess ABG Hematocrit ABG Hemoglobin ABG Oxyhemoglobin ABG Carboxyhemoglobin ABG Methemoglobin ABG Deoxyhemoglobin Angel Test A-a O2 Gradient Ionized Calcium Mode of Support Mechanical Rate Inspired O2 Tidal Volume Pressure Support PEEP or CPAP Sodium 136 Potassium 3.8 Chloride 101 Carbon Dioxide 19 L Anion Gap 20 BUN 66 H Creatinine 6.14 H Estimated GFR (MDRD) 7 Glucose 238 H Lactic Acid 1.8 Calcium 8.3 Phosphorus Magnesium 1.9 Total Bilirubin 1.0 AST 28 ALT 31 Alkaline Phosphatase 92 Troponin I 0.280 H Serum Total Protein 6.3 Albumin 3.0 L Globulin 3.3 Albumin/Globulin Ratio 0.9 L Random Vancomycin Hep Bs Antigen 06/05/20 06/05/20 06/05/20 02:21 02:21 02:21 WBC 10.5 RBC 3.35 L Hgb 12.0 Hct 36.7 MCV 110.0 H MCH 35.7 H MCHC 32.6 RDW 13.5 Plt Count 70 L MPV 12.0 H Neutrophils % (Manual) 65 Band Neuts % (Manual) 30 H Lymphocytes % (Manual) 4 L Monocytes % (Manual) 1 Plt Morphology Comment Appears Decreased L Macrocytosis SLIGHT = 6-15 cells Specimen Type Puncture Site Bicarbonate Actual ABG pH ABG pCO2 ABG pO2 ABG O2 Sat (Measured) ABG O2 Content ABG Base Excess ABG Hematocrit ABG Hemoglobin ABG Oxyhemoglobin ABG Carboxyhemoglobin ABG Methemoglobin ABG Deoxyhemoglobin Angel Test A-a O2 Gradient Ionized Calcium Mode of Support Mechanical Rate Inspired O2 Tidal Volume Pressure Support PEEP or CPAP Sodium Potassium Chloride Carbon Dioxide Anion Gap BUN Creatinine Estimated GFR (MDRD) Glucose Lactic Acid Calcium Phosphorus 4.4 Magnesium Total Bilirubin AST ALT Alkaline Phosphatase Troponin I Serum Total Protein Albumin Globulin Albumin/Globulin Ratio Random Vancomycin Hep Bs Antigen Non-Reactive 06/05/20 08:49 WBC RBC Hgb Hct MCV MCH MCHC RDW Plt Count MPV Neutrophils % (Manual) Band Neuts % (Manual) Lymphocytes % (Manual) Monocytes % (Manual) Plt Morphology Comment Macrocytosis Specimen Type Puncture Site Bicarbonate Actual ABG pH ABG pCO2 ABG pO2 ABG O2 Sat (Measured) ABG O2 Content ABG Base Excess ABG Hematocrit ABG Hemoglobin ABG Oxyhemoglobin ABG Carboxyhemoglobin ABG Methemoglobin ABG Deoxyhemoglobin Angel Test A-a O2 Gradient Ionized Calcium Mode of Support Mechanical Rate Inspired O2 Tidal Volume Pressure Support PEEP or CPAP Sodium Potassium Chloride Carbon Dioxide Anion Gap BUN Creatinine Estimated GFR (MDRD) Glucose Lactic Acid Calcium Phosphorus Magnesium Total Bilirubin AST ALT Alkaline Phosphatase Troponin I Serum Total Protein Albumin Globulin Albumin/Globulin Ratio Random Vancomycin 21.7 Hep Bs Antigen
[2020-06-05] MEDS: HumaLOG 300 UNITS/3 ML VIAL SC PRN ×3 (12:35→23:52)
--- NOTE | 2020-06-05 13:43 | EKG ---
Test Reason : Blood Pressure : / mmHG Vent. Rate : 155 BPM Atrial Rate : 087 BPM P-R Int : 000 ms QRS Dur : 142 ms QT Int : 272 ms P-R-T Axes : 000 -65 078 degrees QTc Int : 437 ms Atrial fibrillation with rapid ventricular response with premature ventricular or aberrantly conducte d complexes Left axis deviation Right bundle branch block Inferior infarct , age undetermined Anterolateral infarct , age undetermined Abnormal ECG Confirmed by JEANNE CIFUENTES DO ([id number]), editor map MILLICENT HURLEY ([id number]) on 06/05/2020 1:43:21 PM Referred By: Confirmed By:JEANNE CIFUENTES DO
--- NOTE | 2020-06-05 15:39 | CON ---
DATE OF CONSULTATION: 06/05/2020 HISTORY OF PRESENT ILLNESS: Ms. Bruce is a 70-year-old female with history of end-stage renal disease presumed secondary to a combination of diabetes and hypertension. She had a left upper arm graft placed about 6 weeks ago. Initial attempts to cannulate the graft at the dialysis center were unsuccessful and she has been receiving maintenance dialysis through her tunneled temporary catheter. This apparently had been doing well until earlier this week when there was some associated swelling and erythema. She was seen by the implant vascular surgeon in the middle of the week and wants to have followup appointment and ultrasound next week. Unfortunately, she began to have dialysis and weakness. She was unable to go to the dialysis center and then developed weakness and dizziness. She did not have any fevers or chills. She was seen in [facility] and transferred here for further intervention. She was taken to the operating room last evening for removal of the fistula. Surprisingly, there was not a large associated abscess. New access was not placed. She received dialysis last evening through her dialysis temporary catheter and has remained on the ventilator. She is receiving empiric antibiotics. This morning, her wound is being re-evaluated at bedside with placement of wound VAC. The patient is awake and nods her head to simple commands. She denies air hunger, but does report pain. The patient is a 70-year-old female. She has a reported intolerance to latex, sulfa, and allopurinol. HOME MEDICATIONS: Include: 1. Aspirin. 2. Plavix. 3. Gabapentin. 4. Lisinopril. 5. Pantoprazole. 6. Colcrys. 7. Lasix. 8. Coreg. 9. Simvastatin. 10. She receives maintenance hemodialysis on Sunday, Sunday, Sunday. PAST MEDICAL HISTORY: Remarkable for diabetes with resultant end-stage renal disease. She has a history of previous myocardial infarction and has a defibrillator suggesting significant reduction in LV systolic function. She has a past history of colon cancer in 2019 with resection. She has a defibrillator with a left ventricular wire. REVIEW OF SYSTEMS: Remarkable as above. She is currently intubated and I cannot get a full review. PHYSICAL EXAMINATION: VITAL SIGNS: Blood pressure 102/59, heart rate is 72, she is afebrile, respiratory rate is 20. She is orally intubated. She is on low sedation. HEENT: Shows no icterus. I could not evaluate her oropharynx. NECK: She has no JVD. LUNGS: Show rhonchi without wheezing. She has what sounds like a small cuff leak, although it does not disappear with further inflation of the cuff. The tube appears to be in good position, although a post ventilator film is not available. HEART: Regular rate and rhythm. I do not hear a murmur. ABDOMEN: Mildly distended. It is soft. There is no guarding. EXTREMITIES: Show no cyanosis or clubbing. The left upper extremity is bandaged. I was there when the bandage was taken down and she has an extensive wound from removal of her graft. It is dry without obvious suppuration. LABORATORY DATA: White count is 10,500, hemoglobin is 12 with hematocrit 36, she has macrocytosis with MCV of 110, she has 65% neutrophils and 30% bands, platelet count is 70,000. Blood gas last evening included pH 7.28 with pCO2 of 38, pO2 of 131, and a bicarbonate of 17 consistent with acute metabolic acidosis. Electrolytes this morning include sodium 136; potassium 3.8; chloride 101; CO2 is 19; BUN 66, and creatinine 6.1, down from 87 and 8.1 respectively. Troponin is 0.8, but likely demand rather than true myocardial infarction. Chest x-ray from the emergency room shows a left tunneled dialysis catheter. She has old surgery of the left proximal humerus. Heart size is normal. Lung clement are grossly clear. IMPRESSION: 1. Sepsis secondary to infected left upper extremity graft subsequently removed. She is on empiric broad antibiotics with vancomycin. 2. End-stage renal disease. Dialysis was done last night and will continue to be performed at the frequency and direction of the Nephrology Service. At this point, she does not appear to be volume overloaded nor have other acute dialysis indications. 3. History of diabetes. 4. History of ischemic coronary artery disease with defibrillator via the right subclavian approach. PLAN: She is doing well on current ventilator settings. I am going to reduce the rate and the FiO2 and hopefully we can get her onto CPAP trials and possibly even extubate later today. The small leak she has is quite insignificant. Wound care and antibiotics have been initiated. It is going to be somewhat difficult with regard to placement of new access because she has a defibrillator in the right subclavian approach and therefore somewhat limited options. We will continue to provide supportive care. Job ID: [id number]
[2020-06-05] MEDS: Morphine 2 MG/ML VIAL SLOW IVP PRN (17:25)
[2020-06-05] MEDS: Atorvastatin Calcium 20 MG TAB PO SCH (19:22)
[2020-06-06 04:55] LABS: Band 5 % (5-11); Crenated RBC SLIGHT = 1-5 cells (100X) (None Seen); Elliptocytes SLIGHT = 2-5 cells (100X) (0-1/hpf); Lymphocytes 1 % (21-51); MDiff Complete? YES; Macrocytosis SLIGHT = 6-15 cells (100X) (0-5/hpf); Mean Corpuscular HGB CONC 31.1 g/dL (32.0-36.0); Mean Corpuscular Hemoglobin 33.7 pg (27.0-31.0); Mean Platelet Volume 12.2 fL (7.4-10.4); Monocytes 6 % (0-10); Neutrophil 88 % (42-75); Platelet Count 117 thou/uL (130-400); Platelet Morphology Comment Appears Decreased; RBC Distribution Width 13.8 % (11.5-14.5); Red Blood Cell (RBC) Count 3.85 mill/uL (4.20-5.40); White Blood Cell (WBC) Count 16.4 thou/uL (4.8-10.8)
[2020-06-06 05:16] LABS: ALT (SGPT) 28 U/L (8-55); AST (SGOT) 14 U/L (5-34); Albumin 2.7 g/dL (3.4-4.8); Alkaline Phosphatase 72 U/L (40-110); Anion Gap 20 mmol/L (10-20); BUN (Urea Nitrogen) 90 mg/dL (9.8-20.1); Bilirubin, Direct 0.4 mg/dL (0.1-0.3); Bilirubin, Total 0.6 mg/dL (0.2-1.2); Calc. Creatinine Clearance 8 mL/min (70-130); Calcium 8.2 mg/dL (7.8-10.44); Carbon Dioxide 20 mmol/L (23-31); Chloride 99 mmol/L (98-107); Estimated GFR-MDRD 5; Glucose 296 mg/dL (83-110); Magnesium 2.1 mg/dL (1.6-2.6); Phosphorus 6.9 mg/dL (2.3-4.7); Potassium 4.4 mmol/L (3.5-5.1); Protein, Total 5.7 g/dL (6.0-8.3); Sodium 135 mmol/L (136-145)
[2020-06-06] MEDS: Piperacillin/Tazobactam 2.25 GM in Sodium Chloride 0.9% 100 ML IVPB SCH ×2 (05:24→17:50)
[2020-06-06] MEDS: Phenylephrine 40 MG in Sodium Chloride 0.9% 250 ML 250 ML IVPB SCH ×2 (05:24→16:09)
--- NOTE | 2020-06-06 05:32 | PRG ---
DATE OF SERVICE: 06/05/2020 SUBJECTIVE: The patient was seen and examined in ICU. She remains intubated. OBJECTIVE: GENERAL: This is a well-built female, intubated, seen in ICU. VITAL SIGNS: Temperature 98.6, pulse 72, respiratory rate , blood pressure 102/59. HEENT: Intubated. CV: S1 and S2, heard. RESPIRATORY: Clear. MUSCULOSKELETAL: 1+ edema. NEUROLOGIC: Intubated. LABORATORY DATA: Potassium 3.8, BUN is 66, creatinine is 6.1. ASSESSMENT AND PLAN: 1. End-stage renal disease, had dialysis yesterday, tolerated well, had almost 1.8 L removed. 2. Plan to later extubate today. We will continue on dialysis as tolerated. 3. Acidosis, better. 4. Hypertension. 5. Anemia. 6. Hyponatremia - Limit fluid intake. 7. Infected dialysis access. We will continue on dialysis as tolerated. Thank you for the consult. Appreciate help from Surgery. We will follow. Job ID: [id number] [facility]
[2020-06-06] MEDS: HumaLOG 300 UNITS/3 ML VIAL SC PRN ×4 (05:34→23:50)
[2020-06-06] MEDS: Morphine 2 MG/ML VIAL SLOW IVP PRN ×2 (07:29→23:25)
[2020-06-06] MEDS: DULoxetine 60 MG CAP PO SCH (08:56)
[2020-06-06] MEDS: Famotidine 40 MG/5 ML Oral Suspension PER TUBE SCH (08:57)
[2020-06-06] MEDS: Insulin Glargine 10 UNITS in Pre-Filled Syringe 1 EACH SC SCH (08:57)
[2020-06-06] MEDS: Gabapentin 300 MG CAP PO SCH (08:57)
--- NOTE | 2020-06-06 11:30 | PRG ---
DATE OF SERVICE: 06/06/2020 SUBJECTIVE: Ms. Bruce has done well with her CPAP trials. Her oxygen status is good with decent rate and spontaneous volumes. We have subsequently extubated her. She will be seen by Speech Therapy later today. Her blood pressure remains low and she is still on vasopressin drip. She is to have her final weekly dialysis treatment today. She has had significant decrease in intake for the past 4 or 5 days related to this illness and subsequent intubation. I think that she is probably volume depleted and plan to give her 500 of saline and possibly another bolus after that. Wound VAC is in place to her left upper extremity. Further wound assessment and revision are planned for tomorrow. PHYSICAL EXAMINATION: VITAL SIGNS: Blood pressure 105/52, but as low as 96/87, heart rate is 65, pulse ox 100%. GENERAL: She is awake and alert. She has poor recollection of the events leading to her intubation. She denies any nausea or vomiting. HEENT: Oropharynx shows no Adalgisa. Voice is decent following extubation. NECK: She has no JVD. LUNGS: Show rhonchi. There is no wheezing. HEART: Regular rate and rhythm. She has a pacemaker via the right subclavian approach. ABDOMEN: Soft. There is no organomegaly. EXTREMITIES: She does not have any edema. Wound VAC is on her left upper arm. LABORATORY DATA: White count 16,400, hemoglobin is 13, platelet count 117,000. Her band count continues to improve, but is down to 5 today, having been as high as 50%. Sodium 135, potassium 4.4, chloride 99, CO2 is 20, BUN 90, creatinine 7.4. Cultures from her arm and blood revealed MRSA. IMPRESSION: 1. Infected left upper arm PTFE, now status post excision, wound irrigation, and placement of a wound VAC. 2. End-stage renal disease, for dialysis today. 3. Methicillin-resistant Staphylococcus aureus bacteremia secondary to above. 4. Hypotension, probably secondary to a mix of sepsis and volume depletion. PLAN: She will get 500 of saline and possibly even another bolus. Speech Therapy will see her today. She has been successfully extubated to nasal cannula. Diet can be advanced as allowed by Speech. Antibiotic and wound care ongoing. Critical care, 31 minutes. Job ID: [id number]
--- NOTE | 2020-06-06 12:47 | PRG ---
DATE OF SERVICE: 06/06/2020 SUBJECTIVE: Patient was seen and examined at bedside and overnight events noted. Patient denies any shortness of breath or chest pain or palpitation. No history of nausea or vomiting or diarrhea or fever or chills or cramps. OBJECTIVE: GENERAL: This is a well-built female, in no apparent distress. VITAL SIGNS: Temperature 98.8. Heart rate 69. Respiratory rate 20. Blood pressure 103/59. HEENT: Atraumatic, normocephalic. Oral mucosa is moist NECK: Supple. CARDIOVASCULAR: S1, S2 heard. Rate and rhythm regular. RESPIRATORY: Clear to auscultation. GASTROINTESTINAL: Abdomen is soft. MUSCULOSKELETAL: No tenderness. No edema. DERMATOLOGIC: No skin rash. NEUROLOGIC: Alert and awake and oriented X3. No focal neurologic deficits. Moving all the extremities. PSYCHIATRIC: Mood and affect normal. LABORATORY DATA: Potassium 4.4, sodium 135, BUN is 90, creatinine is 7.4. ASSESSMENT AND PLAN: 1. End-stage renal disease. No dialysis today. The patient was getting some IV fluids today. Be cautious with IV hydration. 2. Hypotension, on IV fluids. 3. Hyponatremia. 4. Acidosis. 5. Azotemia. 6. Hyperglycemia. 7. Hyperphosphatemia. 8. Hypoalbuminemia. 9. Cardiorenal syndrome. 10. Infected graft, status post excision and also on wound VAC and antibiotics. Appreciate help from Surgery. 11. No indication for dialysis today. We will continue dialysis on Sunday, Sunday, and Sunday. Recommend caution with IV hydration. Job ID: [id number]
--- NOTE | 2020-06-06 14:44 | PDOC.HOSPP ---
- Subjective Encounter Date: 06/06/20 Subjective: The patient was successfully extubated. She has no new complaints this morning. - Objective Vital Signs & Weight: Vital Signs (12 hours) Temp Pulse Resp BP Pulse Ox 06/06/20 11:00 98.8 F 06/06/20 08:30 100 06/06/20 07:24 64 106/72 06/06/20 07:00 98.7 F 06/06/20 06:00 16 06/06/20 04:00 97.6 F 14 Weight Admit Weight 170 lb 3.136 oz Weight 160 lb 0.889 oz Most Recent Monitor Data Heart Rate from ECG 66 NIBP 121/65 NIBP BP-Mean 83 Respiration from ECG 25 SpO2 100 I&O: 06/05/20 06/06/20 06/07/20 06:59 06:59 06:59 Intake Total 163.6 744.7 Output Total 0 0 0 Balance 163.6 744.7 0 Result Diagrams: 06/06/20 04:24 06/06/20 04:24 Additional Labs: Accuchecks 06/06/20 06/05/20 06/05/20 12:10 23:56 18:41 POC Glucose 222 H 246 H 238 H Hospitalist ROS - Medication Medications: Active Medications Generic Name Dose Route Start Last Admin Trade Name Yasmin PRN Reason Stop Dose Admin Atorvastatin Calcium 20 mg 06/05/20 21:00 06/05/20 19:22 Atorvastatin Calcium 20 Mg Tab PO 20 mg HS PASCUAL Administration Duloxetine HCl 60 mg 06/05/20 09:00 06/06/20 08:56 Duloxetine 60 Mg Cap PO Not Given DAILY PASCUAL Famotidine 20 mg 06/05/20 09:00 06/06/20 08:57 Famotidine 40 Mg/5 Ml Oral Suspension PER TUBE Not Given QAM PASCUAL Gabapentin 300 mg 06/05/20 09:00 06/06/20 08:57 Gabapentin 300 Mg Cap PO Not Given DAILY PASCUAL Phenylephrine HCl 40 mg/ 254 mls @ 0 mls/hr 06/05/20 00:15 06/06/20 05:24 Sodium Chloride IVPB 254 mls INF PASCUAL Administration Protocol Piperacillin Sod/Tazobactam 100 mls @ 200 mls/hr 06/05/20 06:00 06/06/20 05:24 Sod 2.25 gm/ Sodium Chloride IVPB 100 mls 0600,1800 PASCUAL Administration Diltiazem HCl 125 mg/ Sodium 125 mls @ 0 mls/hr 06/05/20 00:45 06/05/20 21:20 Chloride IVPB 125 mls INF PASCUAL Administration Protocol Titrate Insulin Glargine 10 units/ 0.1 mls @ 0 mls/hr 06/05/20 09:00 06/06/20 08:57 Miscellaneous Medication SC Not Given DAILY PASCUAL Insulin Human Lispro 0 units 06/05/20 00:30 06/06/20 12:06 Humalog 300 Units/3 Ml Vial SC 3 unit .MILD SLIDING SCALE PRN Administration Mild Correctional Scale Lorazepam 2 mg 06/04/20 23:15 06/05/20 19:46 Lorazepam 2 Mg/Ml Vial SLOW IVP 07/04/20 23:15 2 mg Q1H PRN Administration Breakthrough agitation Morphine Sulfate 2 mg 06/04/20 23:15 06/06/20 07:29 Morphine 2 Mg/Ml Vial SLOW IVP 07/04/20 23:15 2 mg Q1H PRN Administration Breakthrough Pain/Agitation Propofol 1,000 mg 06/04/20 23:15 06/05/20 00:30 Propofol 1,000 Mg/100 Ml Vial IV 07/04/20 23:15 1,000 mg INF PRN Administration TO ACHIEVE GOAL RASS Protocol Sodium Chloride 10 ml 06/05/20 09:00 06/06/20 08:58 Flush - Normal Saline 10 Ml Syringe IVF 10 ml Q12HR PASCUAL Administration - Exam General Appearance: awake alert ENT: normocephalic atraumatic Neck: supple, no JVD Heart: RRR Respiratory: normal chest expansion, no tachypnea Extremities: no cyanosis, no clubbing Neurological: cranial nerve grossly intact, no focal deficits Hosp A/P (1) Septic shock Code(s): A41.9 - SEPSIS, UNSPECIFIED ORGANISM; R65.21 - SEVERE SEPSIS WITH SEPTIC SHOCK Status: Acute (2) End-stage renal disease on hemodialysis Code(s): N18.6 - END STAGE RENAL DISEASE; Z99.2 - DEPENDENCE ON RENAL DIALYSIS Status: Acute (3) Dialysis AV fistula infection Code(s): T82.7XXA - INFECT/INFLM REACT D/T OTH CARDI/VASC DEV/IMPLNT/GRFT, INIT Status: Acute (4) Acute respiratory failure with hypoxia Code(s): J96.01 - ACUTE RESPIRATORY FAILURE WITH HYPOXIA Status: Acute - Plan Continue broad-spectrum antibiotics. Culture results showing MRSA in the blood and in the IV access site. Check echocardiogram. The patient was extubated today. She remains IV pressor dependent. Continue HD per nephrology.
--- NOTE | 2020-06-06 14:56 | PDOC.GSPN ---
Surgery Progress Note: Subj - Subjective Narrative: Patient is feeling better today. She just extubated this morning. She is not having much pain in her arm. No further fevers but she is still requiring pressors and the rate has actually had to go up during the night. VAC dressings are in place. These will be taken down tomorrow. MRSA is growing from her wound culture and she has staph aureus from blood cultures as well. Assessment/plan: Infected AV graft of left upper arm status post excision. Doing better but still requiring pressors. Continue irrigating VAC and antibiotics. May need long-term antibiotics given bacteremia and at-risk AICD and tunneled dialysis catheter. This may be able to be given during dialysis. Surgery Progress Note: Obj - Vital signs Vital signs: Vital Signs - Most Recent Temp Pulse Resp BP Pulse Ox 98.8 F 64 16 106/72 100 06/06/20 11:00 06/06/20 07:24 06/06/20 06:00 06/06/20 07:24 06/06/20 08:30 Surgery Progress Note: Results - Labs Result Diagrams: 06/06/20 04:24 06/06/20 04:24 Lab results: Laboratory Results - last 24 hr 06/06/20 06/06/20 06/06/20 04:24 04:24 09:21 WBC 16.4 H RBC 3.85 L Hgb 13.0 Hct 41.8 MCV 108.0 H MCH 33.7 H MCHC 31.1 L RDW 13.8 Plt Count 117 L MPV 12.2 H Neutrophils % (Manual) 88 H Band Neuts % (Manual) 5 Lymphocytes % (Manual) 1 L Monocytes % (Manual) 6 Plt Morphology Comment Appears Decreased L Macrocytosis SLIGHT = 6-15 cells Crenated Cell SLIGHT = 1-5 cells Elliptocytes SLIGHT = 2-5 cells Sodium 135 L Potassium 4.4 Chloride 99 Carbon Dioxide 20 L Anion Gap 20 BUN 90 H Creatinine 7.44 H Estimated GFR (MDRD) 5 Glucose 296 H POC Glucose Calcium 8.2 Phosphorus 6.9 H Magnesium 2.1 Total Bilirubin 0.6 Direct Bilirubin 0.4 H AST 14 ALT 28 Alkaline Phosphatase 72 Serum Total Protein 5.7 L Albumin 2.7 L Random Vancomycin 18.0 06/06/20 12:10 WBC RBC Hgb Hct MCV MCH MCHC RDW Plt Count MPV Neutrophils % (Manual) Band Neuts % (Manual) Lymphocytes % (Manual) Monocytes % (Manual) Plt Morphology Comment Macrocytosis Crenated Cell Elliptocytes Sodium Potassium Chloride Carbon Dioxide Anion Gap BUN Creatinine Estimated GFR (MDRD) Glucose POC Glucose 222 H Calcium Phosphorus Magnesium Total Bilirubin Direct Bilirubin AST ALT Alkaline Phosphatase Serum Total Protein Albumin Random Vancomycin
[2020-06-06] MEDS: Atorvastatin Calcium 20 MG TAB PO SCH (20:11)
[2020-06-07 04:49] LABS: Anion Gap 21 mmol/L (10-20); BUN (Urea Nitrogen) 111 mg/dL (9.8-20.1); Calc. Creatinine Clearance 7 mL/min (70-130); Calcium 7.4 mg/dL (7.8-10.44); Carbon Dioxide 19 mmol/L (23-31); Chloride 100 mmol/L (98-107); Estimated GFR-MDRD 5; Glucose 246 mg/dL (83-110); Phosphorus 6.4 mg/dL (2.3-4.7); Potassium 4.2 mmol/L (3.5-5.1); Sodium 136 mmol/L (136-145)
[2020-06-07 05:07] LABS: Band 13 % (5-11); Crenated RBC SLIGHT = 1-5 cells (100X) (None Seen); Eosinophils 1 % (0-10); Hemoglobin 11.4 g/dL (12.0-16.0); Lymphocytes 9 % (21-51); MDiff Complete? YES; Mean Corpuscular Hemoglobin 34.1 pg (27.0-31.0); Mean Platelet Volume 12.2 fL (7.4-10.4); Monocytes 1 % (0-10); Neutrophil 76 % (42-75); Ovalocytes SLIGHT = 2-5 cells (100X) (0-1/hpf); Platelet Count 67 thou/uL (130-400); Platelet Morphology Comment Appears Decreased; RBC Distribution Width 13.6 % (11.5-14.5); Red Blood Cell (RBC) Count 3.34 mill/uL (4.20-5.40); White Blood Cell (WBC) Count 10.1 thou/uL (4.8-10.8)
[2020-06-07] MEDS: Piperacillin/Tazobactam 2.25 GM in Sodium Chloride 0.9% 100 ML IVPB SCH ×2 (05:45→17:18)
[2020-06-07] MEDS: HumaLOG 300 UNITS/3 ML VIAL SC PRN (06:09)
--- NOTE | 2020-06-07 08:07 | CON ---
DATE OF CONSULTATION: 06/05/2020 ADDENDUM: Critical care rendered on the date of service is 42 minutes. This involves critical care thinking time, evaluation of the chart, patient evaluation and examination, formulation of impression and plan and coordinating with team. Job ID: [id number]
[2020-06-07 08:44] LABS: Vancomycin, Random 13.7 ug/mL (See Comment)
[2020-06-07] MEDS: Insulin Glargine 10 UNITS in Pre-Filled Syringe 1 EACH SC SCH (08:50)
[2020-06-07] MEDS: DULoxetine 60 MG CAP PO SCH (08:51)
[2020-06-07] MEDS: Famotidine 40 MG/5 ML Oral Suspension PER TUBE SCH (08:51)
[2020-06-07] MEDS: Gabapentin 300 MG CAP PO SCH (08:51)
[2020-06-07] MEDS ORDERED: DC Sedation Protocol FS ONE (08:53)
--- NOTE | 2020-06-07 09:50 | PRG ---
DATE OF SERVICE: 06/07/2020 SUBJECTIVE: A 70-year-old female, status post respiratory failure. She is better. She is extubated. She is being dialyzed, still slightly hypotensive. OBJECTIVE: VITAL SIGNS: Sats 100% on room air, blood pressure 96/52, pulse respiratory rate 18. GENERAL: She is awake. CHEST: Decreased breath sounds. No wheezing. CARDIAC: Normal S1 and S2. No gallops. ABDOMEN: Soft. LABORATORY DATA: White count 10,000, H and H 11/35, platelet count is 67. Creatinine is 7, BUN 11. Blood culture from the arm abscess, MRSA. MRSA infection of upper extremity access. ASSESSMENT: Chronic renal failure, diabetes, severe deconditioning. PLAN: Continue aggressive PT, supportive care. Her EF is decreased at 30%. She was extubated yesterday and appears to be in no acute distress. Antibiotics as outlined. We will follow while in the ICU. Job ID: [id number]
--- NOTE | 2020-06-07 10:34 | PDOC.GSPN ---
Surgery Progress Note: Subj - Subjective Narrative: Patient is feeling okay today. They were able to get her off pressors yesterday after giving her some IV fluid. Her blood pressure dropped when they started dialysis this morning however. She is not having much pain in her arm. Afebrile. MRSA from basically all sites. Her arm looks better. The cellulitis and induration have resolved. Assessment/plan: Severe sepsis and bacteremia from infected left upper arm AV graft. The infected segment of graft has been removed but there is a small segment at the arterial anastomosis and the venous end. Continue VAC and antibiotics. AICD and tunneled dialysis catheter are at risk but do not appear infected. I would recommend considering consulting infectious disease for long- term management. Surgery Progress Note: Obj - Vital signs Vital signs: Vital Signs - Most Recent Temp Pulse Resp BP Pulse Ox 96.2 F L 64 16 106/72 100 06/07/20 07:00 06/06/20 07:24 06/06/20 06:00 06/06/20 07:24 06/07/20 07:50 Surgery Progress Note: Results - Labs Result Diagrams: 06/07/20 03:00 06/07/20 03:00 Lab results: Laboratory Results - last 24 hr 06/07/20 06/07/20 06/07/20 03:00 03:00 08:06 WBC 10.1 RBC 3.34 L Hgb 11.4 L Hct 35.6 L MCV 107.0 H MCH 34.1 H MCHC 32.0 RDW 13.6 Plt Count 67 L MPV 12.2 H Neutrophils % (Manual) 76 H Band Neuts % (Manual) 13 H Lymphocytes % (Manual) 9 L Monocytes % (Manual) 1 Eosinophils % (Manual) 1 Plt Morphology Comment Appears Decreased L Ovalocytes SLIGHT = 2-5 cells Crenated Cell SLIGHT = 1-5 cells Sodium 136 Potassium 4.2 Chloride 100 Carbon Dioxide 19 L Anion Gap 21 H BUN 111 H Creatinine 7.81 H Estimated GFR (MDRD) 5 Glucose 246 H Calcium 7.4 L Phosphorus 6.4 H Magnesium 2.0 Random Vancomycin 13.7
--- NOTE | 2020-06-07 10:44 | PRG ---
DATE OF SERVICE: 06/07/2020 SUBJECTIVE: A 70-year-old female, being seen for end-stage renal disease. The patient denied nausea, vomiting, or chest pain. OBJECTIVE: GENERAL: The patient is awake and alert. VITAL SIGNS: Afebrile, pulse 75, breathing at 16, and blood pressure 71/57. HEENT: Head normocephalic and atraumatic. Eyes intact, no ulcers. Nose intact, no ulcers. Ears intact, no ulcers. Neck: Supple. No JVD. Chest: Symmetrical and clear. Cardiovascular: Shows S1 and S2, no rub, no murmur. Gastrointestinal: Abdomen is soft, bowel sounds positive. Extremities: Show no edema or ulcers. Skin: Shows no rash or petechiae. Musculoskeletal: Shows no joint swelling or stiffness. Genitourinary: Shows no Rajan or CVA tenderness. Neurologic: Motor intact. Cranial nerves intact. LABORATORY DATA: Show hemoglobin of 11.4. ASSESSMENT AND PLAN: 1. Stage 6 chronic kidney disease. Plan dialysis per schedule. 2. Hypotension. Consider pressors medication based on GFR appropriate. Job ID: [id number]
--- NOTE | 2020-06-07 11:38 | ULT ---
US Venous Doppler Bilat History: Pain and edema. Comparison: Ultrasound examination February 2019 Findings: Real-time grayscale, color and spectral analysis of bilateral lower extremity venous system was performed. The common femoral, femoral, proximal portions greater saphenous and deep femoral veins as well as the popliteal and posterior tibial veins were interrogated. The right posterior tibial vein was not well seen likely due to soft tissue swelling. Remainder of th e veins are patent. Normal flow, augmentation and compression. Moderate soft tissue swelling. Impression: No deep venous thrombosis.
--- NOTE | 2020-06-07 16:31 | PDOC.HOSPP ---
- Subjective Encounter Date: 06/07/20 Subjective: No new complaints. She remains hypotensive and dependent on pressors. - Objective Vital Signs & Weight: Vital Signs (12 hours) Temp Pulse Ox 06/07/20 16:00 97.2 F L 06/07/20 11:00 96.5 F L 06/07/20 07:50 100 06/07/20 07:00 96.2 F L Weight Admit Weight 170 lb 3.136 oz Weight 157 lb 13.616 oz Most Recent Monitor Data Heart Rate from ECG 85 NIBP 97/44 NIBP BP-Mean 61 Respiration from ECG 22 SpO2 96 I&O: 06/06/20 06/07/20 06/08/20 06:59 06:59 06:59 Intake Total 744.7 1354.9 500 Output Total 0 201 Balance 744.7 1153.9 500 Result Diagrams: 06/07/20 03:00 06/07/20 03:00 Additional Labs: Accuchecks 06/07/20 06/07/20 06/06/20 12:07 06:08 23:54 POC Glucose 144 H 206 H 263 H 06/06/20 18:04 POC Glucose 198 H Hospitalist ROS - Medication Medications: Active Medications Generic Name Dose Route Start Last Admin Trade Name Freq PRN Reason Stop Dose Admin Atorvastatin Calcium 20 mg 06/05/20 21:00 06/06/20 20:11 Atorvastatin Calcium 20 Mg Tab PO 20 mg HS PASCUAL Administration Duloxetine HCl 60 mg 06/05/20 09:00 06/07/20 08:51 Duloxetine 60 Mg Cap PO 60 mg DAILY PASCUAL Administration Famotidine 20 mg 06/05/20 09:00 06/07/20 08:51 Famotidine 40 Mg/5 Ml Oral Suspension PER TUBE 20 mg QAM PASCUAL Administration Gabapentin 300 mg 06/05/20 09:00 06/07/20 08:51 Gabapentin 300 Mg Cap PO 300 mg DAILY PASCUAL Administration Phenylephrine HCl 40 mg/ 254 mls @ 0 mls/hr 06/05/20 00:15 06/06/20 16:09 Sodium Chloride IVPB 254 mls INF PASCUAL Administration Protocol Piperacillin Sod/Tazobactam 100 mls @ 200 mls/hr 06/05/20 06:00 06/07/20 05:45 Sod 2.25 gm/ Sodium Chloride IVPB 100 mls 0600,1800 PASCUAL Administration Diltiazem HCl 125 mg/ Sodium 125 mls @ 0 mls/hr 06/05/20 00:45 06/05/20 21:20 Chloride IVPB 125 mls INF PASCUAL Administration Protocol Titrate Vancomycin HCl 750 mg/ Sodium 250 mls @ 250 mls/hr 06/05/20 09:00 06/07/20 11:15 Chloride IVPB 06/12/20 09:01 250 mls WILLCALL PASCUAL Administration Insulin Glargine 10 units/ 0.1 mls @ 0 mls/hr 06/05/20 09:00 06/07/20 08:50 Miscellaneous Medication SC 0.1 mls DAILY PASCUAL Administration Insulin Human Lispro 0 units 06/05/20 00:30 06/07/20 06:09 Humalog 300 Units/3 Ml Vial SC 3 unit .MILD SLIDING SCALE PRN Administration Mild Correctional Scale Sodium Chloride 10 ml 06/05/20 09:00 06/07/20 08:52 Flush - Normal Saline 10 Ml Syringe IVF 10 ml Q12HR PASCUAL Administration - Exam General Appearance: awake alert ENT: normocephalic atraumatic Neck: supple, no JVD Heart: RRR Respiratory: normal chest expansion, no tachypnea Neurological: cranial nerve grossly intact, no new deficit Hosp A/P (1) Septic shock Code(s): A41.9 - SEPSIS, UNSPECIFIED ORGANISM; R65.21 - SEVERE SEPSIS WITH SEPTIC SHOCK Status: Acute (2) End-stage renal disease on hemodialysis Code(s): N18.6 - END STAGE RENAL DISEASE; Z99.2 - DEPENDENCE ON RENAL DIALYSIS Status: Acute (3) Dialysis AV fistula infection Code(s): T82.7XXA - INFECT/INFLM REACT D/T OTH CARDI/VASC DEV/IMPLNT/GRFT, INIT Status: Acute (4) Acute respiratory failure with hypoxia Code(s): J96.01 - ACUTE RESPIRATORY FAILURE WITH HYPOXIA Status: Acute - Plan Continue broad-spectrum antibiotics. Culture results showing MRSA in the blood and in the IV access site. Echocardiogram did not show any overt vegetations. Due to the MRSA bacteremia, persistent sepsis, and presence of an ICD, I have consulted Dr. Carvajal. Continue HD per nephrology.
--- NOTE | 2020-06-07 18:50 | CON ---
DATE OF CONSULTATION: 06/07/2020 REASON FOR CONSULTATION: Bacteremia. HISTORY OF PRESENT ILLNESS: A 70-year-old who has a history of type 2 diabetes; end-stage renal disease, on hemodialysis with AV graft in the left upper extremity; gout; recently diagnosed colon cancer status post resection and reanastomosis by Dr. Garcia. The patient was seen at [facility] and was transferred to [place]. At that time, she was not feeling well for several days. She had noticed inflammatory changes in the AV graft site in the left upper extremity. On arrival, BP 100/49, pulse 103, temperature 98.4, O2 saturation 98. She appeared ill, but was alert and oriented. There were erythematous changes around the graft in the left upper extremity. The lungs, heart, and abdomen examination otherwise not remarkable. She had a surgical procedure by Dr. Garcia on 06/05 and it consisted of exclusion excision of the graft to control sepsis. At the same time, a left IJ tunneled catheter was placed. She is currently in the ICU, appears chronically ill. She is off pressors. Zzpy-[id number] pain in the left upper extremity. No headaches. No change in visual symptoms. No sore throat. No chest pain or shortness of breath. No abdominal pain. She does not have much urine output. PAST MEDICAL HISTORY: 1. Type 2 diabetes. 2. End-stage renal disease, on hemodialysis with graft until now, and it was removed. Now, she has a tunneled catheter in left IJ position. 3. Ischemic cardiomyopathy with AICD in the right subclavian location. 4. Gout. 5. Blindness. 6. Neuropathy. 7. Prior OK. PAST SURGICAL HISTORY: Includes: 1. Four cardiac stents. 2. Retinal interventions. 3. section. 4. Tonsillectomy. SOCIAL HISTORY: Never smoker. No alcoholic beverage use. ALLERGIES: ALLOPURINOL, LATEX, AND SULFA. MEDICATIONS: 1. Maalox. 2. DuoNeb. 3. Lipitor. 4. Catapres. 5. Diltiazem. 6. Cymbalta. 7. Pepcid. 8. Neurontin. 9. Apresoline. 10. Insulin. 11. Levophed. 12. Zosyn. 13. Vancomycin. PHYSICAL EXAMINATION: VITAL SIGNS: T-max 98.8, blood pressure 82/45, O2 saturations are 100 with 21% of FiO2, room air after extubation and she was on 35 before extubation. SKIN: The left arm site with the postsurgical appearance with a kind of an elliptical incision with kind of red tissue at the base, not much erythema noted. She has a tunneled catheter in the left IJ position without remarkable findings. The right AICD site does not appear inflamed. She has no urine output. No lymphadenopathy. GENERAL: Chronically ill-appearing, in no distress. HEENT: Pupils are constricted. Oral cavity with a few missing teeth. She complains of pain, I think it is probably localized to the sternoclavicular joint, left mandibular area. This was related to the mechanical ventilation intubation procedure. No sore throat, odynophagia, or dysphagia. No vomiting. No back pain. No dyspnea or chest pain. No abdominal pain or diarrhea. No genitourinary symptoms. No joint symptoms outside the left upper extremity. NEUROLOGIC: Awake and oriented, follows commands. Good recollection. Speech appears to be normal. LABORATORY DATA: White cell count is 5.8 with 28% bands and now bands are down to 13 and white cell count down to 10, hemoglobin 11.4, and platelets 67,000. A pH of 7.28, pCO2 of 38, and pO2 of 131. Sodium 136, creatinine 7.81, phosphorus 6.4. Liver profile normal. Albumin 3.0. Hepatitis surface antigen nonreactive. COVID was not detected on 05/03 and has not been repeated. Blood cultures with 4 sets with MRSA, those were obtained about 5 hours apart. The organism has an BLAIR for vancomycin of one. IMAGING STUDIES: Include a venogram on 06/07, which showed no evidence of DVT. Duplex scan of upper extremity artery with perigraft infection with pus coming to the skin surface. Chest x-ray on 06/04 with no evidence of acute cardiopulmonary disease. The patient had an echo yesterday, which demonstrated EF of 30% to 35% and severe mitral regurgitation, sclerotic aortic valve, moderate aortic regurgitation. ASSESSMENT: 1. Type 2 diabetes with end-stage renal disease, previously on hemodialysis was graft in the left upper extremity. 2. Recently diagnosed colon cancer with lymph node invasiveness, status post resection with reanastomosis. 3. Inflammatory changes in the left arteriovenous graft for dialysis, which led to removal of the graft as there was obvious infection at the site. 4. Continuous bacteremia due to methicillin-resistant Staphylococcus aureus. 5. Automatic implantable cardioverter-defibrillator device in place. DISCUSSION: This patient now will need to have the possibility of colonization of the AICD and endocarditis evaluated. Repeat blood cultures will be drawn in a day or 2 to verify resolution of bacteremia with antimicrobial therapy and removal of the graft. Consider GENET to evaluate the leads and the valve, particularly in the face of wide open aortic insufficiency and mitral regurgitation. Continue with vancomycin sliding scale with target trough around anywhere from 15 to 20 mcg/mL. We will likely treat for at least 6 weeks. Other sites of involvement are not apparent at this time. Job ID: [id number] [facility]
[2020-06-07] MEDS: Atorvastatin Calcium 20 MG TAB PO SCH (20:49)
[2020-06-08] MEDS: HumaLOG 300 UNITS/3 ML VIAL SC PRN ×5 (00:22→20:38)
[2020-06-08] MEDS: Piperacillin/Tazobactam 2.25 GM in Sodium Chloride 0.9% 100 ML IVPB SCH (06:36)
[2020-06-08] MEDS: DULoxetine 60 MG CAP PO SCH (08:28)
[2020-06-08] MEDS: Gabapentin 300 MG CAP PO SCH (08:28)
[2020-06-08] MEDS: Insulin Glargine 10 UNITS in Pre-Filled Syringe 1 EACH SC SCH (08:28)
--- NOTE | 2020-06-08 10:10 | PDOC.GSPN ---
Surgery Progress Note: Subj - Subjective Narrative: Patient is feeling okay. She denies any shortness of breath or chest pain or lightheadedness. The arm is not really hurting her. The nurses report that there is a large discrepancy in blood pressure between her arms and her legs with a blood pressure in the arms being quite a bit lower. She did have some issues with the function of her graft as well. Blood pressure is normal but she is back on a Manas-Synephrine drip and the right has had to be increased through the night. She has a normal radial pulse at the wrist VAC dressing is in place. Minimal swelling in the left arm. Moderate to severe swelling in the right arm. Assessment/plan: Sepsis due to infected left upper arm AV graft. Improving but still with hypotension requiring pressors. There is some discrepancy between the blood pressures in her arms and her legs so I am going to order noninvasive arterial studies of her arms to see if there is any evidence of a significant arterial stenosis. This might explain some of the problems they were having accessing her graft as well. MRSA bacteremia is being treated with vancomycin. Dr. Carvajal was under the impression that I placed the left internal jugular hemodialysis catheter, but I informed him that it was already in place when she was admitted to the hospital. He plans to instill vancomycin into the catheter as well for the next couple weeks to try to salvage it. Surgery Progress Note: Obj - Vital signs Vital signs: Vital Signs - Most Recent Temp Pulse Resp BP Pulse Ox 97.8 F 64 16 106/72 98 06/08/20 07:24 06/06/20 07:24 06/06/20 06:00 06/06/20 07:24 06/08/20 07:26 Surgery Progress Note: Results - Labs Result Diagrams: 06/07/20 03:00 06/07/20 03:00 Lab results: Laboratory Results - last 24 hr 06/08/20 06/08/20 00:19 06:37 POC Glucose 183 H 185 H
[2020-06-08] MEDS: Famotidine 40 MG/5 ML Oral Suspension PER TUBE SCH (10:42)
[2020-06-08] MEDS ORDERED: Famotidine 20 MG TAB PO SCH (10:45)
[2020-06-08] MEDS: Hydrocortisone Sod Succ/PF 100 mg/2 ml Vial IVP SCH ×3 (11:42→23:34)
--- NOTE | 2020-06-08 11:45 | ULT ---
Arterial duplex sonogram bilateral upper extremity HISTORY: Good color and spectral Doppler flow with normal waveforms at each subclavian artery. Each w as evaluated at the proximal, mid, and distal portions of the respective subclavian artery. No abnormally elevated peak systolic velocities. IMPRESSION : No evidence of subclavian artery stenosis.
--- NOTE | 2020-06-08 11:58 | PRG ---
DATE OF SERVICE: 06/08/2020 SUBJECTIVE: A 70-year-old female being seen for end-stage renal disease. The patient denied nausea, vomiting, or chest pain. OBJECTIVE: GENERAL: The patient is resting. VITAL SIGNS: Afebrile, pulse 96, breathing at 16, blood pressure 106/60. HEENT: Head normocephalic and atraumatic. Eyes intact, no ulcers. Nose intact, no ulcers. Ears intact, no ulcers. Neck: Supple. No JVD. Chest: Symmetrical and clear. Cardiovascular: Shows S1 and S2, no rub, no murmur. Gastrointestinal: Abdomen is soft, bowel sounds positive. Extremities: Show no edema or ulcers. Skin: Shows no rash or petechiae. Musculoskeletal: Shows no joint swelling or stiffness. Genitourinary: Shows no Rajan or CVA tenderness. Neurologic: Motor intact. Cranial nerves intact. LABORATORY DATA: Reviewed. ASSESSMENT AND PLAN: 1. Stage 6 chronic kidney disease. Plan dialysis per schedule. 2. Hypertension, stable. 3. Anemia, stable. 4. Medication based on GFR, appropriate. Job ID: [id number]
--- NOTE | 2020-06-08 12:27 | ULT ---
ULTRASOUND DOPPLER DUPLEX VENOUS RIGHT UPPER EXTREMITY: Date: 06/08/2020 HISTORY: 70-year-old female with right upper extremity swelling and edema. TECHNIQUE: Stevens scale, color flow, and spectral analysis, of major veins of right upper extremity. Compression a nd release applied to all veins except the subclavian. FINDINGS: There is thrombus causing noncompressibility and lack of blood flow, throughout the entire cephalic v ein, in both the arm and forearm. There is thrombus in the right axillary and basilic vein in the arm, but not in the forearm. There is blood flow in these vessels. There is no evidence of thrombus in the internal jugular, brachial, radial, and ulnar, veins. The spaghetti machine operator, Lydia, gave verbal report of the venous thrombosis to nurse, GAUTAM Childers, just prior to this dictation. IMPRESSION: 1. Positive for nonocclusive deep venous thrombosis of the right axillary vein. 2. Positive for nonocclusive superficial venous thrombosis of the right basilic vein in the arm. 3. Positive for occlusive superficial venous thrombosis in the right cephalic vein in the arm and fo rearm. CODE CR. POS: GREER
--- NOTE | 2020-06-08 13:51 | PDOC.HOSPP ---
- Subjective Encounter Date: 06/08/20 Subjective: The patient is alert but confused. Her blood pressure is been measured through her right lower extremity. We are having trouble getting her blood pressure through the right upper extremity. Ultrasound revealed presence of DVT. - Objective Vital Signs & Weight: Vital Signs (12 hours) Temp Pulse Ox 06/08/20 12:00 98.1 F 06/08/20 07:26 98 06/08/20 07:24 97.8 F 06/08/20 04:00 97.8 F Weight Admit Weight 170 lb 3.136 oz Weight 173 lb 11.588 oz Most Recent Monitor Data Heart Rate from ECG 87 NIBP 95/62 NIBP BP-Mean 73 Respiration from ECG 29 SpO2 98 I&O: 06/07/20 06/08/20 06/09/20 06:59 06:59 06:59 Intake Total 1354.9 773.5 745 Output Total 201 0 Balance 1153.9 773.5 745 Result Diagrams: 06/07/20 03:00 06/07/20 03:00 Additional Labs: Accuchecks 06/08/20 06/08/20 06/08/20 11:53 06:37 00:19 POC Glucose 206 H 185 H 183 H 06/07/20 17:08 POC Glucose 148 H Hospitalist ROS - Medication Medications: Active Medications Generic Name Dose Route Start Last Admin Trade Name Freq PRN Reason Stop Dose Admin Atorvastatin Calcium 20 mg 06/05/20 21:00 06/07/20 20:49 Atorvastatin Calcium 20 Mg Tab PO 20 mg HS PASCUAL Administration Duloxetine HCl 60 mg 06/05/20 09:00 06/08/20 08:28 Duloxetine 60 Mg Cap PO 60 mg DAILY PASCUAL Administration Gabapentin 300 mg 06/05/20 09:00 06/08/20 08:28 Gabapentin 300 Mg Cap PO 300 mg DAILY PASCUAL Administration Hydrocortisone Sodium Succinate 50 mg 06/08/20 12:00 06/08/20 11:42 Hydrocortisone Sod Succ/Pf 100 Mg/2 Ml Vial IVP 06/15/20 12:01 50 mg Q6HR PASCUAL Administration Phenylephrine HCl 40 mg/ 254 mls @ 0 mls/hr 06/05/20 00:15 06/06/20 16:09 Sodium Chloride IVPB 254 mls INF PASCUAL Administration Protocol Piperacillin Sod/Tazobactam 100 mls @ 200 mls/hr 06/05/20 06:00 06/08/20 06:36 Sod 2.25 gm/ Sodium Chloride IVPB 100 mls 0600,1800 PASCUAL Administration Diltiazem HCl 125 mg/ Sodium 125 mls @ 0 mls/hr 06/05/20 00:45 06/05/20 21:20 Chloride IVPB 125 mls INF PASCUAL Administration Protocol Titrate Vancomycin HCl 750 mg/ Sodium 250 mls @ 250 mls/hr 06/05/20 09:00 06/07/20 11:15 Chloride IVPB 06/12/20 09:01 250 mls WILLCALL PASCUAL Administration Insulin Glargine 10 units/ 0.1 mls @ 0 mls/hr 06/05/20 09:00 06/08/20 08:28 Miscellaneous Medication SC 0.1 mls DAILY PASCUAL Administration Insulin Human Lispro 0 units 06/05/20 00:30 06/08/20 12:19 Humalog 300 Units/3 Ml Vial SC 3 unit .MILD SLIDING SCALE PRN Administration Mild Correctional Scale Sodium Chloride 10 ml 06/05/20 09:00 06/08/20 08:58 Flush - Normal Saline 10 Ml Syringe IVF 10 ml Q12HR PASCUAL Administration - Exam General Appearance: awake alert Neck: supple, no JVD Heart: RRR Respiratory: normal chest expansion, no tachypnea Neurological: cranial nerve grossly intact, no weakness Hosp A/P (1) Septic shock Code(s): A41.9 - SEPSIS, UNSPECIFIED ORGANISM; R65.21 - SEVERE SEPSIS WITH SEPTIC SHOCK Status: Acute (2) End-stage renal disease on hemodialysis Code(s): N18.6 - END STAGE RENAL DISEASE; Z99.2 - DEPENDENCE ON RENAL DIALYSIS Status: Acute (3) Dialysis AV fistula infection Code(s): T82.7XXA - INFECT/INFLM REACT D/T OTH CARDI/VASC DEV/IMPLNT/GRFT, INIT Status: Acute (4) Acute respiratory failure with hypoxia Code(s): J96.01 - ACUTE RESPIRATORY FAILURE WITH HYPOXIA Status: Acute (5) Deep vein thrombosis, upper right extremity Code(s): I82.621 - ACUTE EMBOLISM AND THROMBOSIS OF DEEP VEINS OF R UP EXTREM Status: Acute (6) MRSA bacteremia Code(s): R78.81 - BACTEREMIA; B95.62 - METHICILLIN RESIS STAPH INFCT CAUSING DISEASES CLASSD ELSWHR Status: Acute - Plan Culture results showing MRSA in the blood and in the IV access site. Transthoracic echocardiogram did not show any overt vegetations. I have consulted for GENET out endocarditis. Continue IV antibiotics per ID. Continue wound VAC management per surgery team. Start Eliquis 2.5 mg orally twice daily for DVT of the right upper extremity.
--- NOTE | 2020-06-08 14:26 | PRG ---
DATE OF SERVICE: 06/08/2020 SUBJECTIVE: Yanet Bruce is a 70-year-old female. This morning, she remains hypotensive, on Manas-Synephrine. OBJECTIVE: VITAL SIGNS: Blood pressure 90/60, pulse afebrile. GENERAL: She is awake, alert, and responsive. CHEST: No wheezing. No crackles. CARDIAC: Normal S1 and S2. No gallops. ABDOMEN: No masses. ASSESSMENT: Chronic renal failure, methicillin-resistant Staphylococcus aureus infection from an access, and persistent hypotension. PLAN: Stress dose of steroids being added, 250 of 5% albumin is given. Hopefully, once able to get her hypotension resolved, she can be transferred out of the ICU. We will follow. Job ID: [id number]
--- NOTE | 2020-06-08 16:07 | PRG ---
DATE OF SERVICE: 06/08/2020 SUBJECTIVE: In the ICU, she is extubated, does not appear to be in any pain. Left upper extremity is dressed. OBJECTIVE: VITAL SIGNS: Temperature normal. LUNGS: Clear. HEART: S1 and S2. Regular rate. ABDOMEN: Soft. Not distended. LABORATORY DATA: White cell count 10.1, hemoglobin 11.4, platelets 67. Creatinine 7.81. MRSA from 4 sets. Currently, on piperacillin and vancomycin, and we will go ahead and discontinue piperacillin/tazobactam. Continue vancomycin for protracted period of time. The areas of interest are noted in my consult note. Colon ca s/p partial colectomy, reanastomosis ESRD, infected L AV arm graft s/p removal MRSA bacteremia from infected graft with potential involvement of AICD as well as new HD tunneled cath that had been placed in [facility]. protracted Vancomycin sliding scale at dialysis, add Vanco lock solution to HD cath ports for 2 wks. Job ID: [id number] [facility]
[2020-06-08] MEDS: Acetaminophen 650 MG/20.3 ML UDCUP PO PRN (17:14)
--- NOTE | 2020-06-08 18:43 | CON ---
DATE OF CONSULTATION: 06/08/2020 REASON FOR CONSULTATION: Need for transesophageal echo. PRIMARY PRINT AND PATTERN DESIGNER: Lenny Childs MD HISTORY OF PRESENT ILLNESS: Ms. Bruce is a very pleasant 70-year-old white female very well known to myself, who comes to the hospital for fevers and chills. She recently was started on hemodialysis and actually had a fistula placed at [facility] about a month ago. This was used immediately for hemodialysis and eventually developed redness and it appeared infected, so she went to the [facility]. Temperature was a 103.1, and she was transferred over here for further evaluation and care. She was diagnosed with MRSA bacteremia likely related to infection of her AV graft. I am being asked to see her as she has an AICD and there was a concern for endocarditis or seeding of the AICD. On my evaluation Ms. Bruce is awake in the chair. She still on pressor support. Denies any chest pain, tightness, pressure. PAST MEDICAL HISTORY: 1. Coronary artery disease, status post stenting to the RCA in 2018. She had a drug-eluting stent 3.0 x 16 mm Synergy secondary to in-stent restenoses. She had 40% mid LAD and patent LAD and circumflex stents. At that time, her EF was 45% to 50% and had mild aortic valve stenosis. 2. Ischemic cardiomyopathy. At one point, her EF was under 35%, had an AICD placed, but on last evaluation recently in the office, her EF was 52%. 3. Hypertension. 4. History of colon cancer, in remission, followed by Dr. Moya. 5. End-stage renal disease, on hemodialysis Sunday, Sunday, Sunday with Dr. Spring. 6. PVD, which is still pending evaluation. 7. Type 2 diabetes. 8. Gout. 9. Hyperlipidemia. SURGICAL HISTORY: 1. . 2. Cardiac stents as above. 3. Tonsillectomy. 4. Cholecystectomy. 5. Colectomy secondary to colon cancer. 6. Graft implant by Dr. Esqueda in April of 2020. FAMILY HISTORY: Father of coronary artery disease. Mother of coronary artery disease, had diabetes and hypertension, had a stroke. ALLERGIES: 1. SULFA. 2. LATEX. 3. ALLOPURINOL, BLISTERS IN HER HANDS. REVIEW OF SYSTEMS: A 12-point review of systems was done and was found to be negative other than stated in the history of present illness. PHYSICAL EXAMINATION: VITAL SIGNS: Temperature 97.1, pulse 84, respiratory rate 20, saturating 100% on 2 L nasal cannula, blood pressure 105/69. GENERAL: Awake, alert, oriented to person, place, difficulty with time and situation, in no distress. HEENT: Normocephalic, atraumatic. NECK: Supple. LUNGS: Clear. CARDIOVASCULAR: S1 and S2. No S3 or S4. There is a grade 3/6 systolic murmur at the right upper sternal border. ABDOMEN: Soft. Positive bowel sounds. EXTREMITIES: No edema. SKIN: Warm and dry. LABORATORY DATA: Laboratory work was reviewed. White count of 10, hemoglobin of 11, hematocrit of 35, platelet count of 67. Chemistry was reviewed, latest one on the . GFR was 5, normal sodium and potassium, calcium was 7.4, which is low, phosphorus 6.4, which is high. Albumin was 2.7. Troponin was in the indeterminate range at 0.20, 0.11, and 0.28 in that order. Cortisol level was 19. Serology for hepatitis B surface antigen was nonreactive. Vascular ultrasound recently was found to have deep venous thrombosis of the right axillary vein, also superficial thrombosis of the right basilic vein and right cephalic vein. ASSESSMENT AND PLAN: 1. MRSA bacteremia. 2. Worsening dilated cardiomyopathy, EF at 30% to 35% on recent echocardiogram done during this admission. This is a change from when she had normal EF in the office just a few months ago. 3. Coronary artery disease, stable. No ACS. 4. Paroxysmal atrial fibrillation. 5. DVT of the upper extremity. PLAN: 1. Certainly we will need transesophageal echo to evaluate for endocarditis or seeding of the AICD. We will try to do this in the next few days once she is weaned off all her pressors and inotropics support. Currently, she is still on pressors, so we will wait next few days when she is weaned off. 2. No plan on heart catheterization. Most likely, her reduced EF is related to severe illness. Also, her platelets are too low at this time to do anything. 3. DVT. Agree with Merrill. The dose for end-stage renal disease would be 5 mg twice a day. 4. Plan on GENET once she is off pressor support. Thank you for letting us to participate in the care of your patient. We will follow. Job ID: [id number]
[2020-06-08] MEDS: Atorvastatin Calcium 20 MG TAB PO SCH (20:25)
[2020-06-08] MEDS: Apixaban 5 MG TAB PO SCH (20:25)
[2020-06-09 04:48] LABS: ALT (SGPT) 17 U/L (8-55); AST (SGOT) 13 U/L (5-34); Albumin 2.8 g/dL (3.4-4.8); Alkaline Phosphatase 65 U/L (40-110); Anion Gap 20 mmol/L (10-20); BUN (Urea Nitrogen) 87 mg/dL (9.8-20.1); Bilirubin, Total 0.6 mg/dL (0.2-1.2); Calc. Creatinine Clearance 9 mL/min (70-130); Calcium 7.5 mg/dL (7.8-10.44); Carbon Dioxide 19 mmol/L (23-31); Chloride 102 mmol/L (98-107); Estimated GFR-MDRD 6; Globulin 2.9 g/dL (2.4-3.5); Glucose 238 mg/dL (83-110); Magnesium 2.1 mg/dL (1.6-2.6); Potassium 3.9 mmol/L (3.5-5.1); Protein, Total 5.7 g/dL (6.0-8.3); Sodium 137 mmol/L (136-145)
[2020-06-09 05:19] LABS: Band 2 % (5-11); Hemoglobin 9.7 g/dL (12.0-16.0); Hypochromia SLIGHT = 6-15 cells (100X) (0-5/hpf); Lymphocytes 10 % (21-51); MDiff Complete? YES; Macrocytosis SLIGHT = 6-15 cells (100X) (0-5/hpf); Mean Corpuscular HGB CONC 32.4 g/dL (32.0-36.0); Mean Corpuscular Hemoglobin 34.5 pg (27.0-31.0); Mean Platelet Volume 12.1 fL (7.4-10.4); Monocytes 6 % (0-10); Neutrophil 82 % (42-75); Platelet Count 58 thou/uL (130-400); Platelet Morphology Comment Appears Decreased; RBC Distribution Width 13.5 % (11.5-14.5)
[2020-06-09] MEDS ORDERED: Vancomycin HCl 50 MG, Sodium Chloride 0.9% 10 ML in Syringe 1 ML CATH SCH (06:15)
[2020-06-09] MEDS: Hydrocortisone Sod Succ/PF 100 mg/2 ml Vial IVP SCH ×4 (07:13→23:52)
[2020-06-09] MEDS: Insulin Glargine 10 UNITS in Pre-Filled Syringe 1 EACH SC SCH (08:47)
[2020-06-09] MEDS: HumaLOG 300 UNITS/3 ML VIAL SC PRN ×2 (08:47→11:33)
[2020-06-09 08:48] LABS: Vancomycin, Random 18.3 ug/mL (See Comment)
--- NOTE | 2020-06-09 09:20 | PRG ---
DATE OF SERVICE: 06/09/2020 SUBJECTIVE: This morning, she is much more awake, responsive. She is being dialyzed. OBJECTIVE: VITAL SIGNS: Temperature 97, sats are 100% on room air, blood pressure 130/58, respirations 18. She is off pressors. Cortisol level was 19 suggestive of relative adrenal insufficiency. Chest: No wheezing. No crackles. CARDIAC: Normal S1, S2. No gallops. ABDOMEN: No masses. LABORATORY DATA: H and H are stable, white count 5000. ASSESSMENT AND PLAN: Sepsis syndrome, methicillin-resistant Staphylococcus aureus, chronic renal failure, relative adrenal insufficiency. She is stable enough to be transferred out of the ICU. Continue steroids as prescribed. Job ID: [id number]
--- NOTE | 2020-06-09 09:34 | PRG ---
DATE OF SERVICE: 06/09/2020 SUBJECTIVE: A 70-year-old female being seen for end-stage renal disease. The patient denies any nausea, vomiting, or chest pain. OBJECTIVE: GENERAL: The patient is awake, alert. VITAL SIGNS: Afebrile. Pulse 80, breathing 16, blood pressure 132/58. HEENT: Head normocephalic and atraumatic. Eyes intact, no ulcers. Nose intact, no ulcers. Ears intact, no ulcers. NECK: Supple. No JVD. CHEST: Symmetrical and clear. CARDIOVASCULAR: Shows S1 and S2, no rub, no murmur. GASTROINTESTINAL: Abdomen is soft, bowel sounds positive. EXTREMITIES: Show no edema or ulcers. SKIN: Shows no rash or petechiae. MUSCULOSKELETAL: Shows no joint swelling or stiffness. GENITOURINARY: Shows no Rajan or CVA tenderness. NEUROLOGIC: Motor intact. Cranial nerves intact. LABORATORY DATA: Reviewed. ASSESSMENT AND PLAN: 1. Stage 6 chronic kidney disease. Plan dialysis. 2. Hypertension, stable. 3. Anemia, stable. 4. Medication based on GFR appropriate. Job ID: [id number]
[2020-06-09] MEDS ORDERED: Heparin 10,000 UNITS/ 10 ML VIAL ONE (10:04)
[2020-06-09] MEDS ORDERED: SODIUM CHLORIDE IVPB SCH ×4 (10:45→11:15)
[2020-06-09] MEDS ORDERED: [UNRECOGNIZED DRUG - OTHER] IVPB SCH (10:45)
[2020-06-09] MEDS ORDERED: VANCOMYCIN HCL IVPB SCH ×4 (10:45→11:15)
[2020-06-09] MEDS: Gabapentin 300 MG CAP PO SCH (11:11)
[2020-06-09] MEDS: DULoxetine 60 MG CAP PO SCH (11:11)
[2020-06-09] MEDS: Famotidine 20 MG TAB PO SCH (11:11)
[2020-06-09] MEDS ORDERED: [UNRECOGNIZED DRUG - OTHER] IVPB SCH (11:15)
[2020-06-09] MEDS ORDERED: [UNRECOGNIZED DRUG - OTHER] IVPB SCH (11:15)
[2020-06-09] MEDS ORDERED: [UNRECOGNIZED DRUG - OTHER] IVPB SCH (11:15)
[2020-06-09] MEDS: Apixaban 5 MG TAB PO SCH ×2 (11:57→21:11)
[2020-06-09] MEDS: Acetaminophen 650 MG/20.3 ML UDCUP PO PRN (14:10)
--- NOTE | 2020-06-09 14:30 | PDOC.GSPN ---
Surgery Progress Note: Subj - Subjective Narrative: Patient is doing better. She is off of pressors since yesterday. She tolerated dialysis. She is not having any pain in her arm. The incision is clean. Cellulitis and induration completely resolved. Irrigating VAC was discontinued and regular VAC will be placed. Assessment/plan: Sepsis due to infected left upper arm AV graft. This has been resected. Operative site is being managed with a VAC dressing. Long-term antibiotics are planned by Dr. Carvajal. She has a right upper arm DVT which is being treated with Eliquis. Surgery Progress Note: Obj - Vital signs Vital signs: Vital Signs - Most Recent Temp Pulse Resp BP Pulse Ox 98.3 F 64 16 106/72 100 06/09/20 12:00 06/06/20 07:24 06/06/20 06:00 06/06/20 07:24 06/09/20 08:00 Surgery Progress Note: Results - Labs Result Diagrams: 06/09/20 04:06 06/09/20 03:30 Lab results: Laboratory Results - last 24 hr 06/09/20 06/09/20 06/09/20 03:30 04:06 07:55 WBC 5.0 RBC 2.80 L Hgb 9.7 L Hct 29.8 L MCV 107.0 H MCH 34.5 H MCHC 32.4 RDW 13.5 Plt Count 58 L MPV 12.1 H Neutrophils % (Manual) 82 H Band Neuts % (Manual) 2 L Lymphocytes % (Manual) 10 L Monocytes % (Manual) 6 Hypochromia SLIGHT = 6-15 cells Plt Morphology Comment Appears Decreased L Macrocytosis SLIGHT = 6-15 cells Sodium 137 Potassium 3.9 Chloride 102 Carbon Dioxide 19 L Anion Gap 20 BUN 87 H Creatinine 6.75 H Estimated GFR (MDRD) 6 Glucose 238 H POC Glucose Calcium 7.5 L Magnesium 2.1 Total Bilirubin 0.6 AST 13 ALT 17 Alkaline Phosphatase 65 Serum Total Protein 5.7 L Albumin 2.8 L Globulin 2.9 Albumin/Globulin Ratio 1.0 L Random Vancomycin 18.3 06/09/20 06/09/20 08:51 11:27 WBC RBC Hgb Hct MCV MCH MCHC RDW Plt Count MPV Neutrophils % (Manual) Band Neuts % (Manual) Lymphocytes % (Manual) Monocytes % (Manual) Hypochromia Plt Morphology Comment Macrocytosis Sodium Potassium Chloride Carbon Dioxide Anion Gap BUN Creatinine Estimated GFR (MDRD) Glucose POC Glucose 163 H 169 H Calcium Magnesium Total Bilirubin AST ALT Alkaline Phosphatase Serum Total Protein Albumin Globulin Albumin/Globulin Ratio Random Vancomycin
--- NOTE | 2020-06-09 15:25 | PDOC.HOSPP ---
- Subjective Encounter Date: 06/09/20 Subjective: The patient has been off vasopressors. She has no new complaints. Right upper extremity swelling still present. No evidence of active bleeding. - Objective Vital Signs & Weight: Vital Signs (12 hours) Temp Pulse Ox 06/09/20 12:00 98.3 F 06/09/20 08:00 97.6 F 100 Weight Admit Weight 170 lb 3.136 oz Weight 172 lb 13.478 oz Most Recent Monitor Data Heart Rate from ECG 95 NIBP 133/54 NIBP BP-Mean 80 Respiration from ECG 21 SpO2 100 I&O: 06/08/20 06/09/20 06/10/20 06:59 06:59 06:59 Intake Total 773.5 1030 1000 Output Total 600 100 Balance 773.5 430 900 Result Diagrams: 06/09/20 04:06 06/09/20 03:30 Additional Labs: Accuchecks 06/09/20 06/09/20 06/08/20 11:27 08:51 20:40 POC Glucose 169 H 163 H 265 H 06/08/20 17:20 POC Glucose 248 H Hospitalist ROS - Medication Medications: Active Medications Generic Name Dose Route Start Last Admin Trade Name Freq PRN Reason Stop Dose Admin Acetaminophen 650 mg 06/05/20 00:35 06/09/20 14:10 Acetaminophen 650 Mg/20.3 Ml Udcup PO 650 mg Q6H PRN Administration Fever > 101 or Mild Pain Apixaban 5 mg 06/08/20 21:00 06/09/20 11:57 Apixaban 5 Mg Tab PO 5 mg BID PASCUAL Administration Atorvastatin Calcium 20 mg 06/05/20 21:00 06/08/20 20:25 Atorvastatin Calcium 20 Mg Tab PO 20 mg HS PASCUAL Administration Duloxetine HCl 60 mg 06/05/20 09:00 06/09/20 11:11 Duloxetine 60 Mg Cap PO 60 mg DAILY PASCUAL Administration Famotidine 20 mg 06/09/20 09:00 06/09/20 11:11 Famotidine 20 Mg Tab PO 20 mg 0900 PASCUAL Administration Gabapentin 300 mg 06/05/20 09:00 06/09/20 11:11 Gabapentin 300 Mg Cap PO 300 mg DAILY PASCUAL Administration Hydrocortisone Sodium Succinate 50 mg 06/08/20 12:00 06/09/20 11:15 Hydrocortisone Sod Succ/Pf 100 Mg/2 Ml Vial IVP 06/15/20 12:01 50 mg Q6HR PASCUAL Administration Phenylephrine HCl 40 mg/ 254 mls @ 0 mls/hr 06/05/20 00:15 06/06/20 16:09 Sodium Chloride IVPB 254 mls INF PASCUAL Administration Protocol Diltiazem HCl 125 mg/ Sodium 125 mls @ 0 mls/hr 06/05/20 00:45 06/05/20 21:20 Chloride IVPB 125 mls INF PASCUAL Administration Protocol Titrate Vancomycin HCl 750 mg/ Sodium 250 mls @ 250 mls/hr 06/05/20 09:00 06/07/20 11:15 Chloride IVPB 06/12/20 09:01 250 mls WILLCALL PASCUAL Administration Vancomycin HCl 500 mg/ Sodium 100 mls @ 100 mls/hr 06/05/20 09:00 06/09/20 13:55 Chloride IVPB 06/12/20 09:01 100 mls WILLCALL PASCUAL Administration Insulin Glargine 10 units/ 0.1 mls @ 0 mls/hr 06/05/20 09:00 06/09/20 08:47 Miscellaneous Medication SC 0.1 mls DAILY PASCUAL Administration Vancomycin HCl 25 mg/ Sodium 9.5 mls @ 0 mls/hr 06/09/20 11:15 06/09/20 11:26 Chloride 9.25 ml/ Heparin IVPB 9.5 mls Sodium (Porcine) 2,500 units/ WILLCALL PASCUAL Administration Syringe Insulin Human Lispro 0 units 06/05/20 00:30 06/09/20 11:33 Humalog 300 Units/3 Ml Vial SC 2 unit .MILD SLIDING SCALE PRN Administration Mild Correctional Scale Sodium Chloride 10 ml 06/05/20 09:00 06/09/20 11:11 Flush - Normal Saline 10 Ml Syringe IVF 10 ml Q12HR PASCUAL Administration Sodium Chloride 10 ml 06/05/20 00:45 06/08/20 23:35 Flush - Normal Saline 10 Ml Syringe IVF 10 ml PRN PRN Administration Saline Flush - Exam General Appearance: awake alert Neck: supple, no JVD Respiratory: normal chest expansion, no tachypnea Gastrointestinal: soft Neurological: cranial nerve grossly intact, no new deficit Hosp A/P (1) Septic shock Code(s): A41.9 - SEPSIS, UNSPECIFIED ORGANISM; R65.21 - SEVERE SEPSIS WITH SEPTIC SHOCK Status: Acute (2) End-stage renal disease on hemodialysis Code(s): N18.6 - END STAGE RENAL DISEASE; Z99.2 - DEPENDENCE ON RENAL DIALYSIS Status: Acute (3) Dialysis AV fistula infection Code(s): T82.7XXA - INFECT/INFLM REACT D/T OTH CARDI/VASC DEV/IMPLNT/GRFT, INIT Status: Acute (4) Acute respiratory failure with hypoxia Code(s): J96.01 - ACUTE RESPIRATORY FAILURE WITH HYPOXIA Status: Acute (5) Deep vein thrombosis, upper right extremity Code(s): I82.621 - ACUTE EMBOLISM AND THROMBOSIS OF DEEP VEINS OF R UP EXTREM Status: Acute (6) MRSA bacteremia Code(s): R78.81 - BACTEREMIA; B95.62 - METHICILLIN RESIS STAPH INFCT CAUSING DISEASES CLASSD ELSWHR Status: Acute - Plan Culture results showing MRSA in the blood and in the IV access site. Transthoracic echocardiogram did not show any overt vegetations. I have consulted for GENET out endocarditis. Continue IV antibiotics per ID. Vasopressors discontinued. Continue wound VAC management per surgery team. Continue Eliquis 5 mg orally twice daily for DVT of the right upper extremity.
--- NOTE | 2020-06-09 18:35 | PDOC.CPN ---
- Subjective Date: 06/09/20 Time: 18:32 Interval history: Doing better. Of pressors. Still very weak and deconditioned. - Review of Systems General: reports: fatigue. denies: fever/chills, weight/appetite/sleep changes, night sweats Respiratory: reports: shortness of breath, exercise intolerance. denies: cough, congestion Cardiovascular: reports: edema. denies: chest pain, palpitation, paroxysmal noc turnal dyspnea, orthopnea Gastrointestinal: denies: nausea, vomiting, diarrhea, constipation, abd pain, GI bleeding Musculoskeletal: denies: pain, tenderness, stiffness, swelling, arthritis/arthralgias Neurological: denies: numbness, syncope, seizure, weakness - Objective Allergies/Adverse Reactions: Allergies Allergy/AdvReac Type Severity Reaction Status Date / Time allopurinol Allergy Severe BLISTERS Verified 05/04/20 15:24 ON HANDS Sulfa (Sulfonamide Allergy Intermediate ITCHING Verified 05/04/20 15:24 Antibiotics) latex Allergy Verified 05/04/20 15:24 Visit Medications: Current Medications Acetaminophen (Acetaminophen 650 Mg/20.3 Ml Udcup) 650 mg PO Q6H PRN PRN Reason: Fever > 101 or Mild Pain Last Admin: 06/09/20 14:10 Dose: 650 mg Documented by: Al Hydroxide/Mg Hydroxide (Mag-Al 1200 Mg/1200 Mg/30 Ml Udcup) 30 ml PO Q8H PRN PRN Reason: Indigestion Albuterol/Ipratropium (Ipratropium/Albuterol Sulfate 3 Ml Neb) 3 ml NEB [id number] PRN PRN Reason: SOB &/or Wheezing Apixaban (Apixaban 5 Mg Tab) 5 mg PO BID [facility] Last Admin: 06/09/20 11:57 Dose: 5 mg Documented by: Atorvastatin Calcium (Atorvastatin Calcium 20 Mg Tab) 20 mg PO HS [facility] Last Admin: 06/08/20 20:25 Dose: 20 mg Documented by: Bisacodyl (Bisacodyl 5 Mg Tab) 10 mg PO DAILYPRN PRN PRN Reason: Constipation Bisacodyl (Bisacodyl 10 Mg Supp) 10 mg ME DAILYPRN PRN PRN Reason: Constipation Clonidine (Clonidine 0.1 Mg Tab) 0.1 mg PO BID PRN PRN Reason: SBP > 160 use second Duloxetine HCl (Duloxetine 60 Mg Cap) 60 mg PO DAILY [facility] Last Admin: 06/09/20 11:11 Dose: 60 mg Documented by: Famotidine (Famotidine 20 Mg Tab) 20 mg PO 0900 [facility] Last Admin: 06/09/20 11:11 Dose: 20 mg Documented by: Gabapentin (Gabapentin 300 Mg Cap) 300 mg PO DAILY [facility] Last Admin: 06/09/20 11:11 Dose: 300 mg Documented by: Guaifenesin/Dextromethorphan (Guaifenesin Dm 100-10/5 Ml Udcup) 15 ml PO Q4H PRN PRN Reason: Cough Hydralazine HCl (Hydralazine 20 Mg/Ml Vial) 10 mg SLOW IVP Q6H PRN PRN Reason: SBP GREATER THAN 160 Hydrocortisone Sodium Succinate (Hydrocortisone Sod Succ/Pf 100 Mg/2 Ml Vial) 50 mg IVP Q6HR [facility] Stop: 06/15/20 12:01 Last Admin: 06/09/20 11:15 Dose: 50 mg Documented by: Norepinephrine Bitartrate (Levophed) 250 mls @ 0 mls/hr IVPB INF [facility]; Protocol Phenylephrine HCl 40 mg/ (Sodium Chloride) 254 mls @ 0 mls/hr IVPB INF [facility]; Protocol Last Admin: 06/06/20 16:09 Dose: 254 mls Documented by: Promethazine HCl 12.5 mg/ (Sodium Chloride) 50.5 mls @ 202 mls/hr IVPB Q6H PRN PRN Reason: Nausea/vomiting use second Vasopressin 40 unit/ Sodium (Chloride) 102 mls @ 6 mls/hr IV INF PRN PRN Reason: To maintain MAP > 65 Diltiazem HCl 125 mg/ Sodium (Chloride) 125 mls @ 0 mls/hr IVPB INF [facility]; Protocol Last Admin: 06/05/20 21:20 Dose: 125 mls Documented by: Vancomycin HCl 1.25 gm/ Sodium (Chloride) 250 mls @ 166.667 mls/hr IVPB WILLCALL [facility] Stop: 06/12/20 09:01 Vancomycin HCl 1 gm/ Device 200 mls @ 200 mls/hr IVPB WILLCALL [facility] Stop: 06/12/20 09:01 Vancomycin HCl 750 mg/ Sodium (Chloride) 250 mls @ 250 mls/hr IVPB WILLCALL [facility] Stop: 06/12/20 09:01 Last Admin: 06/07/20 11:15 Dose: 250 mls Documented by: Vancomycin HCl 500 mg/ Sodium (Chloride) 100 mls @ 100 mls/hr IVPB WILLCALL [facility] Stop: 06/12/20 09:01 Last Admin: 06/09/20 13:55 Dose: 100 mls Documented by: Insulin Glargine 10 units/ (Miscellaneous Medication) 0.1 mls @ 0 mls/hr SC DAILY [facility] Last Admin: 06/09/20 08:47 Dose: 0.1 mls Documented by: Vancomycin HCl 50 mg/ Sodium (Chloride 10 ml/ Syringe) 11 mls @ 0 mls/hr [facility] Vancomycin HCl 25 mg/ Sodium Chloride 9.25 ml/ Heparin Sodium (Porcine) 2,500 units/Syringe 9.5 mls @ 0 mls/hr IVPB WILLCALL [facility] Last Admin: 06/09/20 11:26 Dose: 9.5 mls Documented by: Insulin Human Lispro (Humalog 300 Units/3 Ml Vial) 0 units SC .MILD SLIDING SCALE PRN PRN Reason: Mild Correctional Scale Last Admin: 06/09/20 11:33 Dose: 2 unit Documented by: Labetalol HCl (Labetalol Hcl 100 Mg/20 Ml Vial) 20 mg SLOW IVP Q4H PRN PRN Reason: SBP > 160 use third Magnesium Hydroxide (Milk Of Magnesia 30 Ml Udcup) 30 ml PO Q8H PRN PRN Reason: Constipation Miscellaneous Medication (Pharmacy To Dose Vancomycin/ Zosyn) 1 each IVPB PRN PRN PRN Reason: Pharmacy to dose Hold Vancomycin For (Level >20) 0 each FS .AT DIALYSIS [facility] Ondansetron HCl (Ondansetron Pf 4 Mg/2 Ml Vial) 4 mg IVP Q6H PRN PRN Reason: Nausea/Vomiting use 1st Sodium Chloride (Flush - Normal Saline 10 Ml Syringe) 10 ml IVF Q12HR [facility] Last Admin: 06/09/20 11:11 Dose: 10 ml Documented by: Sodium Chloride (Flush - Normal Saline 10 Ml Syringe) 10 ml IVF PRN PRN PRN Reason: Saline Flush Last Admin: 06/08/20 23:35 Dose: 10 ml Documented by: Vital Signs & Weight: Vital Signs Temp Pulse BP Pulse Ox Pulse Ox 06/09/20 16:00 97.6 F 06/09/20 15:15 88 113/55 L 100 06/09/20 12:00 98.3 F 06/09/20 08:00 97.6 F 100 Admit Weight 170 lb 3.136 oz Weight 172 lb 13.478 oz - Physical Exam General: no apparent distress HEENT: mucus membranes moist Neck: supple neck Cardiac: no murmur Lungs: normal breath sounds Neuro: grossly intact Abdomen: active bowel sounds Extremities: 1+ LE edema Skin: clear Musculoskeletal: no pain - Labs Result Diagrams: 06/09/20 04:06 06/09/20 03:30 Troponin/CKMB CK-MB (CK-2) 2.3 ng/mL (0-6.6) 06/04/20 17:00 Troponin I 0.280 ng/mL (< 0.028) H 06/05/20 02:21 - Telemetry Sinus rhythms and dysrhythmias: other (AV paced.) - Assessment/Plan Assessment/Plan: 1. MRSA bacteremia 2. Septic shock, improved. 3. Worsening CMY EF at 30-35% 4. CAD, stable, no ACS 5. Paroxysmal afib 6. UE DVT 7. ESRD on HD. PLAN: - IV abx per primary team. - Currently still to weak to undergo GENET. - Will plan towards the end of the week, likely sunday.
[2020-06-09] MEDS: Atorvastatin Calcium 20 MG TAB PO SCH (21:11)
[2020-06-10 04:59] LABS: #Lymphocytes 0.4 thou/uL (1.20-3.40); #Monocytes 0.4 thou/uL (0.11-0.59); #Neutrophils 3.9 thou/uL (1.40-6.50); %Basophils 0.3 % (0.0-1.0); %Eosinophils 0.3 % (0.0-10.0); %Lymphocytes 8.4 % (21.0-51.0); %Monocytes 9.3 % (0.0-10.0); %Neutrophils 81.6 % (42.0-75.0); Hemoglobin 9.7 g/dL (12.0-16.0); Mean Corpuscular HGB CONC 31.6 g/dL (32.0-36.0); Mean Corpuscular Hemoglobin 33.7 pg (27.0-31.0); Mean Platelet Volume 11.6 fL (7.4-10.4); Platelet Count 76 thou/uL (130-400); RBC Distribution Width 13.3 % (11.5-14.5); Red Blood Cell (RBC) Count 2.87 mill/uL (4.20-5.40); White Blood Cell (WBC) Count 4.7 thou/uL (4.8-10.8)
[2020-06-10] MEDS: HumaLOG 300 UNITS/3 ML VIAL SC PRN ×4 (05:54→22:03)
[2020-06-10] MEDS: Hydrocortisone Sod Succ/PF 100 mg/2 ml Vial IVP SCH ×3 (05:54→18:21)
[2020-06-10] MEDS: Famotidine 20 MG TAB PO SCH (10:00)
[2020-06-10] MEDS: Gabapentin 300 MG CAP PO SCH (10:00)
[2020-06-10] MEDS: Apixaban 5 MG TAB PO SCH ×2 (10:00→22:03)
[2020-06-10] MEDS: DULoxetine 60 MG CAP PO SCH (10:00)
[2020-06-10] MEDS: Insulin Glargine 10 UNITS in Pre-Filled Syringe 1 EACH SC SCH (10:01)
--- NOTE | 2020-06-10 10:12 | PRG ---
DATE OF SERVICE: 06/10/2020 SUBJECTIVE: Yanet Bruce this morning is better. OBJECTIVE: VITAL SIGNS: Temperature 96, pulse 75, respirations 16, saturation is 98% on room air, and blood pressure 139/79. Hypotension, resolved from sepsis. CHEST: Decreased breath sounds. No wheezing. CARDIAC: Normal S1, S2. No gallops. ABDOMEN: No masses. ASSESSMENT: 1. Methicillin-resistant Staphylococcus aureus sepsis, relative adrenal insufficiency. 2. Chronic renal failure. She was much improved. Continue stress dose of steroids as prescribed. 3. placement. Job ID: [id number]
--- NOTE | 2020-06-10 10:57 | PDOC.GSPN ---
Surgery Progress Note: Subj - Subjective Narrative: Patient is feeling okay today. Denies pain at her left arm incision. States that the swelling in her right arm has improved somewhat. Vitals are okay. H&H has come down from baseline. No blood in the VAC canister or on dressings. Right arm is still severely swollen. Assessment/plan: No evidence of postoperative bleeding on Eliquis but H&H has diminished somewhat. This will need to be followed. She has a history of colon cancer but is status post resection for this. Her follow-up colonoscopy was incomplete due to inadequate prep. If her H&H continue to decline I would recommend getting gastroenterology involved. Surgery Progress Note: Obj - Vital signs Vital signs: Vital Signs - Most Recent Temp Pulse Resp BP Pulse Ox 96.7 F L 74 16 139/79 98 06/10/20 07:51 06/10/20 07:51 06/10/20 07:51 06/10/20 07:51 06/10/20 07:51 Surgery Progress Note: Results - Labs Result Diagrams: 06/10/20 04:09 06/09/20 03:30 Lab results: Laboratory Results - last 24 hr 06/10/20 06/10/20 06/10/20 04:09 05:44 10:26 WBC 4.7 L RBC 2.87 L Hgb 9.7 L Hct 30.7 L MCV 107.0 H MCH 33.7 H MCHC 31.6 L RDW 13.3 Plt Count 76 L MPV 11.6 H Neutrophils % 81.6 H Neutrophils % (Manual) Not Reportable Lymphocytes % 8.4 L Monocytes % 9.3 Eosinophils % 0.3 Basophils % 0.3 Neutrophils # 3.9 Lymphocytes # 0.4 L Monocytes # 0.4 Eosinophils # 0.0 Basophils # 0.0 POC Glucose 335 H 339 H
--- NOTE | 2020-06-10 12:48 | PRG ---
DATE OF SERVICE: 06/10/2020 SUBJECTIVE: A 70-year-old female being seen for end-stage renal disease. The patient denies any nausea, vomiting, chest pain. OBJECTIVE: General: The patient is awake, alert. Vital Signs: Afebrile, pulse 74, breathing at 16, blood pressure 139/79. HEENT: Head normocephalic and atraumatic. Eyes intact, no ulcers. Nose intact, no ulcers. Ears intact, no ulcers. Neck: Supple. No JVD. Chest: Symmetrical and clear. Cardiovascular: Shows S1 and S2, no rub, no murmur. Gastrointestinal: Abdomen is soft, bowel sounds positive. Extremities: Show no edema or ulcers. Skin: Shows no rash or petechiae. Musculoskeletal: Shows no joint swelling or stiffness. Genitourinary: Shows no Rajan or CVA tenderness. Neurologic: Motor intact. Cranial nerves intact. LAB: 1. Reviewed. ASSESSMENT: 1. Stage 6 chronic kidney disease, plan dialysis. 2. Hypertension, stable. 3. Anemia, stable. 4. Medication based on GFR appropriate. Job ID: [id number]
[2020-06-10] MEDS ORDERED: Benzonatate 100 MG CAP PO PRN (16:17)
--- NOTE | 2020-06-10 16:19 | PDOC.HOSPP ---
- Subjective Encounter Date: 06/10/20 Subjective: The patient is denying any pain in her right upper extremity. The swelling is slightly improving. She is complaining of persistent cough. - Objective Vital Signs & Weight: Vital Signs (12 hours) Temp Pulse Resp BP Pulse Ox 06/10/20 12:00 96.7 F L 82 18 112/56 L 95 06/10/20 07:51 96.7 F L 74 16 139/79 98 Weight Admit Weight 170 lb 3.136 oz Weight 3.464 oz Most Recent Monitor Data Heart Rate from ECG 77 NIBP 116/55 NIBP BP-Mean 75 Respiration from ECG 24 SpO2 100 I&O: 06/09/20 06/10/20 06/11/20 06:59 06:59 06:59 Intake Total 1030 1000 450 Output Total 600 100 Balance 430 900 450 Result Diagrams: 06/10/20 04:09 06/09/20 03:30 Additional Labs: Accuchecks 06/10/20 06/10/20 06/10/20 16:13 10:26 05:44 POC Glucose 337 H 339 H 335 H 06/09/20 20:17 POC Glucose 323 H Hospitalist ROS - Medication Medications: Active Medications Generic Name Dose Route Start Last Admin Trade Name Freq PRN Reason Stop Dose Admin Acetaminophen 650 mg 06/05/20 00:35 06/09/20 14:10 Acetaminophen 650 Mg/20.3 Ml Udcup PO 650 mg Q6H PRN Administration Fever > 101 or Mild Pain Apixaban 5 mg 06/08/20 21:00 06/10/20 10:00 Apixaban 5 Mg Tab PO 5 mg BID PASCUAL Administration Atorvastatin Calcium 20 mg 06/05/20 21:00 06/09/20 21:11 Atorvastatin Calcium 20 Mg Tab PO 20 mg HS PASCUAL Administration Duloxetine HCl 60 mg 06/05/20 09:00 06/10/20 10:00 Duloxetine 60 Mg Cap PO 60 mg DAILY PASCUAL Administration Famotidine 20 mg 06/09/20 09:00 06/10/20 10:00 Famotidine 20 Mg Tab PO 20 mg 0900 PASCUAL Administration Gabapentin 300 mg 06/05/20 09:00 06/10/20 10:00 Gabapentin 300 Mg Cap PO 300 mg DAILY PASCUAL Administration Hydrocortisone Sodium Succinate 50 mg 06/10/20 12:00 06/10/20 12:27 Hydrocortisone Sod Succ/Pf 100 Mg/2 Ml Vial IVP 06/17/20 12:01 50 mg Q6HR PASCUAL Administration Phenylephrine HCl 40 mg/ 254 mls @ 0 mls/hr 06/05/20 00:15 06/06/20 16:09 Sodium Chloride IVPB 254 mls INF PASCUAL Administration Protocol Diltiazem HCl 125 mg/ Sodium 125 mls @ 0 mls/hr 06/05/20 00:45 06/05/20 21:20 Chloride IVPB 125 mls INF PASCUAL Administration Protocol Titrate Vancomycin HCl 750 mg/ Sodium 250 mls @ 250 mls/hr 06/05/20 09:00 06/07/20 11:15 Chloride IVPB 06/12/20 09:01 250 mls WILLCALL PASCUAL Administration Vancomycin HCl 500 mg/ Sodium 100 mls @ 100 mls/hr 06/05/20 09:00 06/09/20 13:55 Chloride IVPB 06/12/20 09:01 100 mls WILLCALL PASCUAL Administration Insulin Glargine 10 units/ 0.1 mls @ 0 mls/hr 06/05/20 09:00 06/10/20 10:01 Miscellaneous Medication SC 0.1 mls DAILY PASCUAL Administration Vancomycin HCl 25 mg/ Sodium 9.5 mls @ 0 mls/hr 06/09/20 11:15 06/09/20 11:26 Chloride 9.25 ml/ Heparin IVPB 9.5 mls Sodium (Porcine) 2,500 units/ WILLCALL PASCUAL Administration Syringe Insulin Human Lispro 0 units 06/05/20 00:30 06/10/20 12:20 Humalog 300 Units/3 Ml Vial SC 5 unit .MILD SLIDING SCALE PRN Administration Mild Correctional Scale Sodium Chloride 10 ml 06/05/20 09:00 06/10/20 12:16 Flush - Normal Saline 10 Ml Syringe IVF 10 ml Q12HR PASCUAL Administration Sodium Chloride 10 ml 06/05/20 00:45 06/08/20 23:35 Flush - Normal Saline 10 Ml Syringe IVF 10 ml PRN PRN Administration Saline Flush - Exam General Appearance: awake alert ENT: normocephalic atraumatic Neck: supple, no JVD Heart: RRR Respiratory: normal chest expansion, no tachypnea Neurological: cranial nerve grossly intact, no new deficit Hosp A/P (1) Septic shock Code(s): A41.9 - SEPSIS, UNSPECIFIED ORGANISM; R65.21 - SEVERE SEPSIS WITH SEPTIC SHOCK Status: Acute (2) End-stage renal disease on hemodialysis Code(s): N18.6 - END STAGE RENAL DISEASE; Z99.2 - DEPENDENCE ON RENAL DIALYSIS Status: Acute (3) Dialysis AV fistula infection Code(s): T82.7XXA - INFECT/INFLM REACT D/T OTH CARDI/VASC DEV/IMPLNT/GRFT, INIT Status: Acute (4) Acute respiratory failure with hypoxia Code(s): J96.01 - ACUTE RESPIRATORY FAILURE WITH HYPOXIA Status: Acute (5) Deep vein thrombosis, upper right extremity Code(s): I82.621 - ACUTE EMBOLISM AND THROMBOSIS OF DEEP VEINS OF R UP EXTREM Status: Acute (6) MRSA bacteremia Code(s): R78.81 - BACTEREMIA; B95.62 - METHICILLIN RESIS STAPH INFCT CAUSING DISEASES CLASSD ELSWHR Status: Acute - Plan Culture results showing MRSA in the blood and in the IV access site. Transthoracic echocardiogram did not show any overt vegetations. Cardiology planning GENET within the next 24 to 48 hours. Continue IV antibiotics per ID. Vasopressors discontinued. Continue wound VAC management per surgery team. Continue Eliquis 5 mg orally twice daily for DVT of the right upper extremity. H&H slightly trending down. No obvious source of bleeding. Check stool for occult blood given her history of colon cancer with resection. Continue to monitor H&H. Tessalon Perles every 8 hours as needed for cough. She is saturating well on room air.
--- NOTE | 2020-06-10 19:09 | PDOC.CPN ---
- Subjective Date: 06/10/20 Time: 19:06 Interval history: She is doing a lot better. No angina. No SOB. - Review of Systems General: denies: fever/chills, weight/appetite/sleep changes, night sweats, fatigue Respiratory: denies: cough, congestion, shortness of breath, exercise intolerance Cardiovascular: denies: chest pain, palpitation, edema, paroxysmal nocturnal dyspnea, orthopnea Gastrointestinal: denies: nausea, vomiting, diarrhea, constipation, abd pain, GI bleeding Musculoskeletal: denies: pain, tenderness, stiffness, swelling, arthritis/arthra lgias Neurological: denies: numbness, syncope, seizure, weakness - Objective Allergies/Adverse Reactions: Allergies Allergy/AdvReac Type Severity Reaction Status Date / Time allopurinol Allergy Severe BLISTERS Verified 05/04/20 15:24 ON HANDS Sulfa (Sulfonamide Allergy Intermediate ITCHING Verified 05/04/20 15:24 Antibiotics) latex Allergy Verified 05/04/20 15:24 Visit Medications: Current Medications Acetaminophen (Acetaminophen 650 Mg/20.3 Ml Udcup) 650 mg PO Q6H PRN PRN Reason: Fever > 101 or Mild Pain Last Admin: 06/09/20 14:10 Dose: 650 mg Documented by: Al Hydroxide/Mg Hydroxide (Mag-Al 1200 Mg/1200 Mg/30 Ml Udcup) 30 ml PO Q8H PRN PRN Reason: Indigestion Albuterol/Ipratropium (Ipratropium/Albuterol Sulfate 3 Ml Neb) 3 ml NEB [id number] PRN PRN Reason: SOB &/or Wheezing Apixaban (Apixaban 5 Mg Tab) 5 mg PO BID [facility] Last Admin: 06/10/20 10:00 Dose: 5 mg Documented by: Atorvastatin Calcium (Atorvastatin Calcium 20 Mg Tab) 20 mg PO HS [facility] Last Admin: 06/09/20 21:11 Dose: 20 mg Documented by: Benzonatate (Benzonatate 100 Mg Cap) 100 mg PO TIDPRN PRN PRN Reason: Cough Bisacodyl (Bisacodyl 5 Mg Tab) 10 mg PO DAILYPRN PRN PRN Reason: Constipation Bisacodyl (Bisacodyl 10 Mg Supp) 10 mg GA DAILYPRN PRN PRN Reason: Constipation Clonidine (Clonidine 0.1 Mg Tab) 0.1 mg PO BID PRN PRN Reason: SBP > 160 use second Duloxetine HCl (Duloxetine 60 Mg Cap) 60 mg PO DAILY [facility] Last Admin: 06/10/20 10:00 Dose: 60 mg Documented by: Famotidine (Famotidine 20 Mg Tab) 20 mg PO 0900 [facility] Last Admin: 06/10/20 10:00 Dose: 20 mg Documented by: Gabapentin (Gabapentin 300 Mg Cap) 300 mg PO DAILY [facility] Last Admin: 06/10/20 10:00 Dose: 300 mg Documented by: Guaifenesin/Dextromethorphan (Guaifenesin Dm 100-10/5 Ml Udcup) 15 ml PO Q4H PRN PRN Reason: Cough Hydralazine HCl (Hydralazine 20 Mg/Ml Vial) 10 mg SLOW IVP Q6H PRN PRN Reason: SBP GREATER THAN 160 Hydrocortisone Sodium Succinate (Hydrocortisone Sod Succ/Pf 100 Mg/2 Ml Vial) 50 mg IVP Q6HR [facility] Stop: 06/17/20 12:01 Last Admin: 06/10/20 18:21 Dose: 50 mg Documented by: Norepinephrine Bitartrate (Levophed) 250 mls @ 0 mls/hr IVPB INF [facility]; Protocol Phenylephrine HCl 40 mg/ (Sodium Chloride) 254 mls @ 0 mls/hr IVPB INF [facility]; Protocol Last Admin: 06/06/20 16:09 Dose: 254 mls Documented by: Promethazine HCl 12.5 mg/ (Sodium Chloride) 50.5 mls @ 202 mls/hr IVPB Q6H PRN PRN Reason: Nausea/vomiting use second Vasopressin 40 unit/ Sodium (Chloride) 102 mls @ 6 mls/hr IV INF PRN PRN Reason: To maintain MAP > 65 Diltiazem HCl 125 mg/ Sodium (Chloride) 125 mls @ 0 mls/hr IVPB INF [facility]; Protocol Last Admin: 06/05/20 21:20 Dose: 125 mls Documented by: Vancomycin HCl 1.25 gm/ Sodium (Chloride) 250 mls @ 166.667 mls/hr IVPB [facility] Stop: 06/12/20 09:01 Vancomycin HCl 1 gm/ Device 200 mls @ 200 mls/hr IVPB [facility] Stop: 06/12/20 09:01 Vancomycin HCl 750 mg/ Sodium (Chloride) 250 mls @ 250 mls/hr IVPB [facility] Stop: 06/12/20 09:01 Last Admin: 06/07/20 11:15 Dose: 250 mls Documented by: Vancomycin HCl 500 mg/ Sodium (Chloride) 100 mls @ 100 mls/hr IVPB [facility] Stop: 06/12/20 09:01 Last Admin: 06/09/20 13:55 Dose: 100 mls Documented by: Insulin Glargine 10 units/ (Miscellaneous Medication) 0.1 mls @ 0 mls/hr SC DAILY [facility] Last Admin: 06/10/20 10:01 Dose: 0.1 mls Documented by: Vancomycin HCl 50 mg/ Sodium (Chloride 10 ml/ Syringe) 11 mls @ 0 mls/hr [facility] Vancomycin HCl 25 mg/ Sodium Chloride 9.25 ml/ Heparin Sodium (Porcine) 2,500 units/Syringe 9.5 mls @ 0 mls/hr IVPB [facility] Last Admin: 06/09/20 11:26 Dose: 9.5 mls Documented by: Insulin Human Lispro (Humalog 300 Units/3 Ml Vial) 0 units SC .MILD SLIDING SCALE PRN PRN Reason: Mild Correctional Scale Last Admin: 06/10/20 18:23 Dose: 5 unit Documented by: Labetalol HCl (Labetalol Hcl 100 Mg/20 Ml Vial) 20 mg SLOW IVP Q4H PRN PRN Reason: SBP > 160 use third Magnesium Hydroxide (Milk Of Magnesia 30 Ml Udcup) 30 ml PO Q8H PRN PRN Reason: Constipation Miscellaneous Medication (Pharmacy To Dose Vancomycin/ Zosyn) 1 each IVPB PRN PRN PRN Reason: Pharmacy to dose Hold Vancomycin For (Level >20) 0 each FS .AT DIALYSIS [facility] Ondansetron HCl (Ondansetron Pf 4 Mg/2 Ml Vial) 4 mg IVP Q6H PRN PRN Reason: Nausea/Vomiting use 1st Sodium Chloride (Flush - Normal Saline 10 Ml Syringe) 10 ml IVF Q12HR [facility] Last Admin: 06/10/20 12:16 Dose: 10 ml Documented by: Sodium Chloride (Flush - Normal Saline 10 Ml Syringe) 10 ml IVF PRN PRN PRN Reason: Saline Flush Last Admin: 06/08/20 23:35 Dose: 10 ml Documented by: Vital Signs & Weight: Vital Signs Temp Pulse Resp BP Pulse Ox 06/10/20 16:00 96.4 F L 78 18 121/58 L 97 06/10/20 12:00 96.7 F L 82 18 112/56 L 95 06/10/20 07:51 96.7 F L 74 16 139/79 98 Admit Weight 170 lb 3.136 oz Weight 3.464 oz - Physical Exam General: alert & oriented x3 HEENT: mucus membranes moist Neck: supple neck Cardiac: regular rate and rhythm Lungs: normal breath sounds Neuro: grossly intact Abdomen: active bowel sounds Extremities: 1+ LE edema Skin: clear Musculoskeletal: no pain - Labs Result Diagrams: 06/10/20 04:09 06/09/20 03:30 Troponin/CKMB CK-MB (CK-2) 2.3 ng/mL (0-6.6) 06/04/20 17:00 Troponin I 0.280 ng/mL (< 0.028) H 06/05/20 02:21 - Telemetry Sinus rhythms and dysrhythmias: sinus rhythm - Assessment/Plan Assessment/Plan: 1. MRSA bacteremia 2. Septic shock, improved. 3. Worsening CMY EF at 30-35% 4. CAD, stable, no ACS 5. Paroxysmal afib 6. UE DVT 7. ESRD on HD. PLAN: - IV abx per primary team. - Doing much better and should be ok to go for GENET tomorrow. - Risks include but not limited to: Damage to teeth, mouth, throat, esophageal tear requiring emergency surgery, reaction to the medication and aspiration pneumonia. All questions were answered. Given the risks above, pt agreed to proceed with procedure.
[2020-06-10] MEDS: Atorvastatin Calcium 20 MG TAB PO SCH (22:03)
[2020-06-11] MEDS: Hydrocortisone Sod Succ/PF 100 mg/2 ml Vial IVP SCH ×2 (01:01→06:23)
[2020-06-11 04:49] LABS: #Lymphocytes 0.3 thou/uL (1.20-3.40); #Monocytes 0.6 thou/uL (0.11-0.59); #Neutrophils 4.8 thou/uL (1.40-6.50); %Basophils 0.6 % (0.0-1.0); %Eosinophils 0.3 % (0.0-10.0); %Lymphocytes 4.8 % (21.0-51.0); %Monocytes 9.8 % (0.0-10.0); %Neutrophils 84.5 % (42.0-75.0); Hemoglobin 10.2 g/dL (12.0-16.0); Mean Corpuscular HGB CONC 32.4 g/dL (32.0-36.0); Mean Corpuscular Hemoglobin 34.9 pg (27.0-31.0); Mean Platelet Volume 11.5 fL (7.4-10.4); Platelet Count 97 thou/uL (130-400); RBC Distribution Width 13.3 % (11.5-14.5); Red Blood Cell (RBC) Count 2.93 mill/uL (4.20-5.40); White Blood Cell (WBC) Count 5.6 thou/uL (4.8-10.8)
[2020-06-11 05:02] LABS: Anion Gap 18 mmol/L (10-20); BUN (Urea Nitrogen) 97 mg/dL (9.8-20.1); Calc. Creatinine Clearance 0 mL/min (70-130); Calcium 7.4 mg/dL (7.8-10.44); Carbon Dioxide 19 mmol/L (23-31); Chloride 102 mmol/L (98-107); Estimated GFR-MDRD 7; Glucose 360 mg/dL (83-110); Potassium 3.5 mmol/L (3.5-5.1); Sodium 135 mmol/L (136-145)
[2020-06-11] MEDS: HumaLOG 300 UNITS/3 ML VIAL SC PRN ×3 (06:24→20:46)
--- NOTE | 2020-06-11 09:06 | PRG ---
DATE OF SERVICE: 06/11/2020 SUBJECTIVE: 70-year-old female, being dialyzed this morning. OBJECTIVE: VITAL SIGNS: Temperature 97, pulse 116, sats 90% on room air, blood pressure is 107/64. CHEST: No wheezing. No crackles. CARDIAC: Normal S1, S2. No gallops. ABDOMEN: Soft. LABORATORY DATA: White blood cell count is 5000. ASSESSMENT: 1. Methicillin-resistant Staphylococcus aureus sepsis. 2. Chronic renal failure. 3. Relative adrenal insufficiency. Patient's blood pressure resolved with low-dose steroids, which I am going to discontinue today. Continue present care, PT. Pulmonary/Critical Care will follow at a distance. Call if needed. Job ID: [id number]
--- NOTE | 2020-06-11 10:52 | PRG ---
DATE OF SERVICE: 06/11/2020 SUBJECTIVE: A 70-year-old female being seen for end-stage renal disease. The patient denied nausea, vomiting, or chest pain. PHYSICAL EXAMINATION: General: The patient is awake and alert. Vital Signs: Afebrile, pulse 75, breathing at 16, blood pressure 107/64. HEENT: Head normocephalic and atraumatic. Eyes intact, no ulcers. Nose intact, no ulcers. Ears intact, no ulcers. Neck: Supple. No JVD. Chest: Symmetrical and clear. Cardiovascular: Shows S1 and S2, no rub, no murmur. Gastrointestinal: Abdomen is soft, bowel sounds positive. Extremities: Show no edema or ulcers. Skin: Shows no rash or petechiae. Musculoskeletal: Shows no joint swelling or stiffness. Genitourinary: Shows no Rajan or CVA tenderness. Neurologic: Motor intact. Cranial nerves intact. LABORATORY DATA: Labs show hemoglobin 10.2. ASSESSMENT: 1. Stage 6 chronic kidney disease, continue hemodialysis. 2. Hypertension, stable. 3. Anemia, stable. 4. Medication based on GFR appropriate. Job ID: [id number]
[2020-06-11] MEDS ORDERED: Ketamine 50 MG/ML (10ML VIAL) ONE (13:16)
[2020-06-11] MEDS ORDERED: Midazolam HCl 2 mg/2 ml Vial ONE (13:18)
--- NOTE | 2020-06-11 13:49 | PDOC.PALFU ---
Palliative Care Follow-up Note Palliative Care attempted to see patient, away at diagnostic test. Will follow up.
--- NOTE | 2020-06-11 14:30 | PDOC.HOSPP ---
- Subjective Encounter Date: 06/11/20 Subjective: For GENET today. - Objective Vital Signs & Weight: Vital Signs (12 hours) Temp Pulse Resp BP Pulse Ox 06/11/20 12:38 97.8 F 70 16 107/47 L 96 06/11/20 07:25 97.5 F L 79 16 107/64 98 06/11/20 03:49 97.5 F L 69 18 103/55 L 96 Weight Admit Weight 170 lb 3.136 oz Weight 173 lb 13.352 oz Most Recent Monitor Data Heart Rate from ECG 77 NIBP 116/55 NIBP BP-Mean 75 Respiration from ECG 24 SpO2 100 I&O: 06/10/20 06/11/20 06/12/20 06:59 06:59 06:59 Intake Total 1000 940 Output Total 100 Balance 900 940 Result Diagrams: 06/11/20 04:03 06/11/20 04:03 Additional Labs: Accuchecks 06/11/20 06/10/20 06/10/20 05:52 20:22 16:13 POC Glucose 329 H 345 H 337 H Hospitalist ROS - Medication Medications: Active Medications Generic Name Dose Route Start Last Admin Trade Name Freq PRN Reason Stop Dose Admin Acetaminophen 650 mg 06/05/20 00:35 06/09/20 14:10 Acetaminophen 650 Mg/20.3 Ml Udcup PO 650 mg Q6H PRN Administration Fever > 101 or Mild Pain Apixaban 5 mg 06/08/20 21:00 06/10/20 22:03 Apixaban 5 Mg Tab PO 5 mg BID [facility] Administration Atorvastatin Calcium 20 mg 06/05/20 21:00 06/10/20 22:03 Atorvastatin Calcium 20 Mg Tab PO 20 mg HS [facility] Administration Duloxetine HCl 60 mg 06/05/20 09:00 06/10/20 10:00 Duloxetine 60 Mg Cap PO 60 mg DAILY [facility] Administration Famotidine 20 mg 06/09/20 09:00 06/10/20 10:00 Famotidine 20 Mg Tab PO 20 mg 0900 [facility] Administration Gabapentin 300 mg 06/05/20 09:00 06/10/20 10:00 Gabapentin 300 Mg Cap PO 300 mg DAILY [facility] Administration Phenylephrine HCl 40 mg/ 254 mls @ 0 mls/hr 06/05/20 00:15 06/06/20 16:09 Sodium Chloride IVPB 254 mls INF [facility] Administration Protocol Diltiazem HCl 125 mg/ Sodium 125 mls @ 0 mls/hr 06/05/20 00:45 06/05/20 21:20 Chloride IVPB 125 mls INF [facility] Administration Protocol Titrate Vancomycin HCl 750 mg/ Sodium 250 mls @ 250 mls/hr 06/05/20 09:00 06/07/20 11:15 Chloride IVPB 06/12/20 09:01 250 mls [facility] Administration Vancomycin HCl 500 mg/ Sodium 100 mls @ 100 mls/hr 06/05/20 09:00 06/09/20 13:55 Chloride IVPB 06/12/20 09:01 100 mls [facility] Administration Insulin Glargine 10 units/ 0.1 mls @ 0 mls/hr 06/05/20 09:00 06/10/20 10:01 Miscellaneous Medication SC 0.1 mls DAILY [facility] Administration Vancomycin HCl 25 mg/ Sodium 9.5 mls @ 0 mls/hr 06/09/20 11:15 06/09/20 11:26 Chloride 9.25 ml/ Heparin IVPB 9.5 mls Sodium (Porcine) 2,500 units/ [facility] Administration Syringe Insulin Human Lispro 0 units 06/05/20 00:30 06/11/20 06:24 Humalog 300 Units/3 Ml Vial SC 5 unit .MILD SLIDING SCALE PRN Administration Mild Correctional Scale Insulin Human Lispro 0 units 06/10/20 21:27 06/10/20 22:03 Humalog 300 Units/3 Ml Vial SC 4 unit .BEDTIME SLIDING SC PRN Administration Bedtime Correctional Scale Sodium Chloride 10 ml 06/05/20 09:00 06/10/20 22:03 Flush - Normal Saline 10 Ml Syringe IVF 10 ml Q12HR [facility] Administration Sodium Chloride 10 ml 06/05/20 00:45 06/08/20 23:35 Flush - Normal Saline 10 Ml Syringe IVF 10 ml PRN PRN Administration Saline Flush - Exam General Appearance: awake alert Neck: supple, no JVD Heart: RRR Respiratory: normal chest expansion, no tachypnea Neurological: cranial nerve grossly intact, no focal deficits Hosp A/P (1) Septic shock Code(s): A41.9 - SEPSIS, UNSPECIFIED ORGANISM; R65.21 - SEVERE SEPSIS WITH SEPTIC SHOCK Status: Acute (2) End-stage renal disease on hemodialysis Code(s): N18.6 - END STAGE RENAL DISEASE; Z99.2 - DEPENDENCE ON RENAL DIALYSIS Status: Acute (3) Dialysis AV fistula infection Code(s): T82.7XXA - INFECT/INFLM REACT D/T OTH CARDI/VASC DEV/IMPLNT/GRFT, INIT Status: Acute (4) Acute respiratory failure with hypoxia Code(s): J96.01 - ACUTE RESPIRATORY FAILURE WITH HYPOXIA Status: Acute (5) Deep vein thrombosis, upper right extremity Code(s): I82.621 - ACUTE EMBOLISM AND THROMBOSIS OF DEEP VEINS OF R UP EXTREM Status: Acute (6) MRSA bacteremia Code(s): R78.81 - BACTEREMIA; B95.62 - METHICILLIN RESIS STAPH INFCT CAUSING DISEASES CLASSD ELSWHR Status: Acute - Plan Culture results showing MRSA in the blood and in the IV access site. Transthoracic echocardiogram did not show any overt vegetations. GENET planned today. Continue IV antibiotics per ID. Vasopressors discontinued. Continue wound VAC management per surgery team. Continue Eliquis 5 mg orally twice daily for DVT of the right upper extremity. H&H stable. FOBT negative. Continue to monitor H&H. Tessalon Perles every 8 hours as needed for cough. She is saturating well on room air.
[2020-06-11] MEDS: Famotidine 20 MG TAB PO SCH (15:07)
[2020-06-11] MEDS: Apixaban 5 MG TAB PO SCH ×2 (15:08→20:45)
[2020-06-11] MEDS: Gabapentin 300 MG CAP PO SCH (15:08)
[2020-06-11] MEDS: DULoxetine 60 MG CAP PO SCH (15:08)
[2020-06-11] MEDS: Insulin Glargine 10 UNITS in Pre-Filled Syringe 1 EACH SC SCH (15:09)
[2020-06-11] MEDS: Acetaminophen 650 MG/20.3 ML UDCUP PO PRN (18:33)
[2020-06-11] MEDS: Atorvastatin Calcium 20 MG TAB PO SCH (20:45)
[2020-06-12] MEDS: Acetaminophen 650 MG/20.3 ML UDCUP PO PRN (04:55)
[2020-06-12] MEDS: Ondansetron PF 4 MG/2 ML Vial IVP PRN (04:59)
[2020-06-12 05:02] LABS: Anion Gap 15 mmol/L (10-20); BUN (Urea Nitrogen) 64 mg/dL (9.8-20.1); Calc. Creatinine Clearance 13 mL/min (70-130); Calcium 7.2 mg/dL (7.8-10.44); Carbon Dioxide 22 mmol/L (23-31); Chloride 101 mmol/L (98-107); Estimated GFR-MDRD 9; Glucose 276 mg/dL (83-110); Potassium 3.2 mmol/L (3.5-5.1); Sodium 135 mmol/L (136-145)
[2020-06-12] MEDS: HumaLOG 300 UNITS/3 ML VIAL SC PRN ×4 (06:20→22:54)
[2020-06-12] MEDS ORDERED: traMADol HCl 50 MG TAB PO PRN (09:53)
[2020-06-12] MEDS: Insulin Glargine 10 UNITS in Pre-Filled Syringe 1 EACH SC SCH (09:55)
[2020-06-12] MEDS: DULoxetine 60 MG CAP PO SCH (10:05)
[2020-06-12] MEDS: Famotidine 20 MG TAB PO SCH (10:05)
[2020-06-12] MEDS: Gabapentin 300 MG CAP PO SCH (10:05)
[2020-06-12] MEDS: Apixaban 5 MG TAB PO SCH ×2 (10:05→20:59)
--- NOTE | 2020-06-12 10:20 | PRG ---
DATE OF SERVICE: 06/12/2020 Ms. Bruce is complaining of pain all over in the area of surgery as well. She is afebrile. Vital signs are stable. Her wounds are all wound VAC. ASSESSMENT: Postoperative removal of infected graft. PLAN: We will add hydrocodone and Flagyl for pain p.r.n. Job ID: [id number]
[2020-06-12] MEDS: HYDROcodone/Acetaminophen 7.5/325 mg Tablet PO PRN ×2 (12:35→17:55)
--- NOTE | 2020-06-12 14:36 | PRG ---
DATE OF SERVICE: 06/12/2020 Nephrology Progress note Subjective: Seen and examined in the room. Patient complains of pain in the left arm. Review of systems Gen.: No fever, no chills All the 14 systems reviewed except for the ones mentioned above are negative Physical examination Vitals: Patient's blood pressure, pulse rate, respiratory rate and temperature were reviewed. Blood pressure-99/57 Pulse rate- 90/minute Respiratory- 18 /minute Oxygen saturation-94 % on room air Temperature- 98.7 F Constitutional: Patient is in mild pain and discomfort HEENT: Mucous membranes moist, no icterus Neck: Left IJ TDC + Heart: Regular rate and rhythm; no murmurs Lungs: Air entry equal bilateral; no wheezes Abdomen: Soft; nontender; no guarding/tenderness/rebound Extremities: Left upper arm dressing with wound VAC noted Neurological: Patient is awake, following commands Skin: No rash, no ulcers Psychological: Not agitated Labs and Imaging reviewed Hemoglobin/hematocrit 9.7/29.8 Potassium 3.2 Sodium 135 BUN/creatinine 64/4.82 Medications review All medications reviewed; Pt is on eliquis, Vancomycin Assessment and plan Stage 6 chronic kidney disease Hypertension Anemia Bacteremia secondary to infected AV graft Patient had hemodialysis yesterday. Anticipate next dialysis on Sunday. Patient is receiving vancomycin with hemodialysis. Concern for Patient's blood pressure which is in the lower range. Currently not on antihypertensives. Will continue to monitor. Discussed with GAUTAM ORTA
--- NOTE | 2020-06-12 15:19 | PDOC.HOSPP ---
- Subjective Subjective: Patient was seen examined at bedside. Patient complained of pain at the AV fistula site. She had a wound VAC in place. No fever. Her white count has normalized. Blood cultures were positive for MRSA as well as wound culture. - Objective Vital Signs & Weight: Vital Signs (12 hours) Temp Pulse Resp BP Pulse Ox 06/12/20 12:34 97.6 F 95 18 108/60 97 06/12/20 10:00 95 06/12/20 09:49 98.3 F 86 16 113/51 L 95 06/12/20 04:00 98.5 F 94 16 117/64 98 Weight Admit Weight 170 lb 3.136 oz Weight 178 lb 6.54 oz Most Recent Monitor Data Heart Rate from ECG 77 NIBP 116/55 NIBP BP-Mean 75 Respiration from ECG 24 SpO2 100 I&O: 06/11/20 06/12/20 06/13/20 06:59 06:59 06:59 Intake Total 940 237 Output Total 600 Balance 940 -363 Result Diagrams: 06/11/20 04:03 06/12/20 03:54 Additional Labs: Accuchecks 06/12/20 06/12/20 06/11/20 10:52 06:15 20:42 POC Glucose 220 H 267 H 287 H 06/11/20 16:41 POC Glucose 243 H Hospitalist ROS - Medication Medications: Active Medications Generic Name Dose Route Start Last Admin Trade Name Freq PRN Reason Stop Dose Admin Acetaminophen 650 mg 06/05/20 00:35 06/12/20 04:55 Acetaminophen 650 Mg/20.3 Ml Udcup PO 650 mg Q6H PRN Administration Fever > 101 or Mild Pain Hydrocodone Bitart/Acetaminophen 1 tab 06/12/20 09:53 06/12/20 12:35 Hydrocodone/Acetaminophen 7.5/325 Mg Tablet PO 1 tab Q6H PRN Administration Mild Pain (1-3) Apixaban 5 mg 06/08/20 21:00 06/12/20 10:05 Apixaban 5 Mg Tab PO 5 mg BID [facility] Administration Atorvastatin Calcium 20 mg 06/05/20 21:00 06/11/20 20:45 Atorvastatin Calcium 20 Mg Tab PO 20 mg HS [facility] Administration Duloxetine HCl 60 mg 06/05/20 09:00 06/12/20 10:05 Duloxetine 60 Mg Cap PO 60 mg DAILY [facility] Administration Famotidine 20 mg 06/09/20 09:00 06/12/20 10:05 Famotidine 20 Mg Tab PO 20 mg 0900 [facility] Administration Gabapentin 300 mg 06/05/20 09:00 06/12/20 10:05 Gabapentin 300 Mg Cap PO 300 mg DAILY [facility] Administration Guaifenesin/Dextromethorphan 15 ml 06/05/20 00:25 06/11/20 18:22 Guaifenesin Dm 100-10/5 Ml Udcup PO 15 ml Q4H PRN Administration Cough Phenylephrine HCl 40 mg/ 254 mls @ 0 mls/hr 06/05/20 00:15 06/06/20 16:09 Sodium Chloride IVPB 254 mls INF [facility] Administration Protocol Diltiazem HCl 125 mg/ Sodium 125 mls @ 0 mls/hr 06/05/20 00:45 06/05/20 21:20 Chloride IVPB 125 mls INF [facility] Administration Protocol Titrate Insulin Glargine 10 units/ 0.1 mls @ 0 mls/hr 06/05/20 09:00 06/12/20 09:55 Miscellaneous Medication SC 0.1 mls DAILY [facility] Administration Vancomycin HCl 25 mg/ Sodium 9.5 mls @ 0 mls/hr 06/09/20 11:15 06/09/20 11:26 Chloride 9.25 ml/ Heparin IVPB 9.5 mls Sodium (Porcine) 2,500 units/ [facility] Administration Syringe Insulin Human Lispro 0 units 06/05/20 00:30 06/12/20 09:53 Humalog 300 Units/3 Ml Vial SC 4 unit .MILD SLIDING SCALE PRN Administration Mild Correctional Scale Insulin Human Lispro 0 units 06/10/20 21:27 06/11/20 20:46 Humalog 300 Units/3 Ml Vial SC 3 unit .BEDTIME SLIDING SC PRN Administration Bedtime Correctional Scale Ondansetron HCl 4 mg 06/05/20 00:25 06/12/20 04:59 Ondansetron Pf 4 Mg/2 Ml Vial IVP 4 mg Q6H PRN Administration Nausea/Vomiting use 1st Sodium Chloride 10 ml 06/05/20 09:00 06/12/20 10:05 Flush - Normal Saline 10 Ml Syringe IVF 10 ml Q12HR [facility] Administration Sodium Chloride 10 ml 06/05/20 00:45 06/12/20 04:59 Flush - Normal Saline 10 Ml Syringe IVF 10 ml PRN PRN Administration Saline Flush - Exam General Appearance: NAD, awake alert Eye: PERRL, anicteric sclera ENT: normocephalic atraumatic Neck: supple, symmetric, JVD Heart: RRR, no murmur Respiratory: CTAB Gastrointestinal: soft, non-tender Extremities: no cyanosis, no clubbing, no edema Extremities - other findings: Wound VAC on the left arm Neurological: cranial nerve grossly intact Musculoskeletal: normal tone Psychiatric: normal affect Hosp A/P - Plan This is a 70 years old female who has significant past medical history as of ESRD, hypertension, combined heart failure was status post pacemaker, who was transfer from [facility] for infected AV graft. She developed sepsis with septic shock, required emergent I&D. Sepsis with septic Shock --required vasopressors. HD stable --cont abx, rpt BCx to document clearance Infected AV graft - s/p I&D --wound culture positive for MRSA --Wound vac in place, surgery is following MRSA bacteremia --cont IV abx, Vanc. s/p GENET 06/11, report pending --ID consulted, rpt BCx DVT right upper extremity --cont Eliquis ESRD on dialysis --further mgt as per nephrology team Combined heart failure with EF 30% --no evidence of decompensation. cont dialysis as per nephrology PAF with RVR on admission, required Cardizem gtt --rate controlled. consider resume BB when BP stable. Cont Eliquis as above CAD with history of PCI --cont statin. ASA/BB on hold - will consider resume when BP stablized Diabetes type 2 --cont Lantus, ISS Gout --stable Dyslipidemia --cont statin therapy Hypokalemia --replaced, follow BMP Acute hypoxic respiratory failure - resolved.
[2020-06-12] MEDS ORDERED: Potassium Chloride 20 MEQ TAB PO SCH (15:45)
[2020-06-12] MEDS: Atorvastatin Calcium 20 MG TAB PO SCH (20:59)
[2020-06-13 05:07] LABS: Anion Gap 17 mmol/L (10-20); BUN (Urea Nitrogen) 75 mg/dL (9.8-20.1); Calc. Creatinine Clearance 11 mL/min (70-130); Calcium 7.5 mg/dL (7.8-10.44); Carbon Dioxide 22 mmol/L (23-31); Chloride 99 mmol/L (98-107); Estimated GFR-MDRD 7; Glucose 172 mg/dL (83-110); Magnesium 1.7 mg/dL (1.6-2.6); Potassium 3.5 mmol/L (3.5-5.1); Sodium 134 mmol/L (136-145)
[2020-06-13 05:28] LABS: Band 13 % (5-11); Hemoglobin 10.3 g/dL (12.0-16.0); Lymphocytes 8 % (21-51); MDiff Complete? YES; Mean Corpuscular HGB CONC 32.6 g/dL (32.0-36.0); Mean Platelet Volume 11.4 fL (7.4-10.4); Monocytes 4 % (0-10); Neutrophil 75 % (42-75); Platelet Count 90 thou/uL (130-400); Platelet Morphology Comment Appears Decreased; RBC Distribution Width 13.3 % (11.5-14.5); Red Blood Cell (RBC) Count 2.94 mill/uL (4.20-5.40); White Blood Cell (WBC) Count 10.9 thou/uL (4.8-10.8)
[2020-06-13] MEDS: Famotidine 20 MG TAB PO SCH (08:30)
[2020-06-13] MEDS: Gabapentin 300 MG CAP PO SCH (08:31)
[2020-06-13] MEDS: HYDROcodone/Acetaminophen 7.5/325 mg Tablet PO PRN ×2 (08:31→21:30)
[2020-06-13] MEDS: DULoxetine 60 MG CAP PO SCH (08:31)
[2020-06-13] MEDS: Apixaban 5 MG TAB PO SCH ×2 (08:31→21:30)
[2020-06-13] MEDS: Insulin Glargine 10 UNITS in Pre-Filled Syringe 1 EACH SC SCH (08:33)
[2020-06-13] MEDS: Lidocaine 5% Patch TD SCH (11:19)
--- NOTE | 2020-06-13 14:13 | PDOC.BPN ---
- Brief Progress Note Encounter Date: 06/13/20 Encounter Time: 15:30 Nephrology Progress note Subjective: Seen and examined in the room. Patient is complaining of mild pain in the left upper arm. She had removal of infected AV graft on 06/11. Patient also complains of discomfort in the right upper extremity due to swelling Review of systems Gen.: No fever, no chills All the 14 systems reviewed except for the ones mentioned above are negative Physical examination Vitals: Patient's blood pressure, pulse rate, respiratory rate and temperature were reviewed. Blood pressure-156/95 Pulse rate- 101 /minute Respiratory-18 /minute Oxygen saturation- 98 % on room air Temperature- 98.8 F Constitutional: The patient is in mild pain HEENT: Mucous membranes moist, no icterus Neck: Left IJ TDC+ Heart: Regular rate and rhythm; no murmurs Lungs: Air entry equal bilateral; no wheezes Abdomen: Soft; nontender; no guarding/tenderness/rebound Extremities: Left upper arm with dressing and wound VAC noted; right upper extremity is swollen and edematous Neurological: Patient is awake, following commands Skin: No rash, no ulcers Psychological: Not agitated Labs and Imaging reviewed Hemoglobin/hematocrit 10.3/31.5 Potassium 3.5 Sodium 134 Medications review All medications reviewed; including Eliquis and vancomycin Assessment and plan Stage 6 chronic kidney disease on hemodialysis Hypertension Anemia MRSA bacteremia due to infected AV graft DVT in the right upper extremity Anticipate dialysis in a.m.. Vancomycin with dialysis. Patient is on Eliquis for management of DVT in the right upper extremity. Patient's blood pressures are fluctuating; currently not on antihypertensives. Discussed with GAUTAM
--- NOTE | 2020-06-13 14:22 | PDOC.HOSPP ---
- Subjective Subjective: Patient complaining of pain on her upper extremity. no fever. no acute event overnight - Objective Vital Signs & Weight: Vital Signs (12 hours) Temp Pulse Resp BP Pulse Ox 06/13/20 11:23 97.4 F L 99 18 102/62 96 06/13/20 08:35 98.8 F 95 18 122/73 97 06/13/20 08:30 96 06/13/20 05:00 98.4 F 95 14 97/56 L 96 Weight Admit Weight 170 lb 3.136 oz Weight 184 lb 11.958 oz Most Recent Monitor Data Heart Rate from ECG 77 NIBP 116/55 NIBP BP-Mean 75 Respiration from ECG 24 SpO2 100 I&O: 06/12/20 06/13/20 06/14/20 06:59 06:59 06:59 Intake Total 237 120 Output Total 600 0 Balance -363 120 Result Diagrams: 06/13/20 04:29 06/13/20 04:29 Additional Labs: Accuchecks 06/13/20 06/13/20 06/12/20 10:43 05:39 20:17 POC Glucose 218 H 169 H 214 H 06/12/20 17:02 POC Glucose 237 H Hospitalist ROS - Medication Medications: Active Medications Generic Name Dose Route Start Last Admin Trade Name Freq PRN Reason Stop Dose Admin Acetaminophen 650 mg 06/05/20 00:35 06/12/20 04:55 Acetaminophen 650 Mg/20.3 Ml Udcup PO 650 mg Q6H PRN Administration Fever > 101 or Mild Pain Hydrocodone Bitart/Acetaminophen 1 tab 06/12/20 09:53 06/13/20 08:31 Hydrocodone/Acetaminophen 7.5/325 Mg Tablet PO 1 tab Q6H PRN Administration Mild Pain (1-3) Apixaban 5 mg 06/08/20 21:00 06/13/20 08:31 Apixaban 5 Mg Tab PO 5 mg BID PASCUAL Administration Atorvastatin Calcium 20 mg 06/05/20 21:00 06/12/20 20:59 Atorvastatin Calcium 20 Mg Tab PO 20 mg HS PASCUAL Administration Duloxetine HCl 60 mg 06/05/20 09:00 06/13/20 08:31 Duloxetine 60 Mg Cap PO 60 mg DAILY PASCUAL Administration Famotidine 20 mg 06/09/20 09:00 06/13/20 08:30 Famotidine 20 Mg Tab PO 20 mg 0900 PASCUAL Administration Gabapentin 300 mg 06/05/20 09:00 06/13/20 08:31 Gabapentin 300 Mg Cap PO 300 mg DAILY PASCUAL Administration Guaifenesin/Dextromethorphan 15 ml 06/05/20 00:25 06/11/20 18:22 Guaifenesin Dm 100-10/5 Ml Udcup PO 15 ml Q4H PRN Administration Cough Phenylephrine HCl 40 mg/ 254 mls @ 0 mls/hr 06/05/20 00:15 06/06/20 16:09 Sodium Chloride IVPB 254 mls INF PASCUAL Administration Protocol Diltiazem HCl 125 mg/ Sodium 125 mls @ 0 mls/hr 06/05/20 00:45 06/05/20 21:20 Chloride IVPB 125 mls INF PASCUAL Administration Protocol Titrate Insulin Glargine 10 units/ 0.1 mls @ 0 mls/hr 06/05/20 09:00 06/13/20 08:33 Miscellaneous Medication SC 0.1 mls DAILY PASCUAL Administration Vancomycin HCl 25 mg/ Sodium 9.5 mls @ 0 mls/hr 06/09/20 11:15 06/09/20 11:26 Chloride 9.25 ml/ Heparin IVPB 9.5 mls Sodium (Porcine) 2,500 units/ WILLCALL PASCUAL Administration Syringe Insulin Human Lispro 0 units 06/05/20 00:30 06/12/20 17:55 Humalog 300 Units/3 Ml Vial SC 3 unit .MILD SLIDING SCALE PRN Administration Mild Correctional Scale Insulin Human Lispro 0 units 06/10/20 21:27 06/12/20 22:54 Humalog 300 Units/3 Ml Vial SC 2 unit .BEDTIME SLIDING SC PRN Administration Bedtime Correctional Scale Lidocaine 1 patch 06/13/20 11:00 06/13/20 11:19 Lidocaine 5% Patch TD 1 patch 1100 PASCUAL Administration Ondansetron HCl 4 mg 06/05/20 00:25 06/12/20 04:59 Ondansetron Pf 4 Mg/2 Ml Vial IVP 4 mg Q6H PRN Administration Nausea/Vomiting use 1st Sodium Chloride 10 ml 06/05/20 09:00 06/13/20 08:34 Flush - Normal Saline 10 Ml Syringe IVF 10 ml Q12HR PASCUAL Administration Sodium Chloride 10 ml 06/05/20 00:45 06/12/20 04:59 Flush - Normal Saline 10 Ml Syringe IVF 10 ml PRN PRN Administration Saline Flush - Exam Eye: PERRL ENT: normocephalic atraumatic Neck: supple, symmetric Heart: RRR, no murmur Respiratory: CTAB, no wheezes Gastrointestinal: soft, non-tender Extremities: no cyanosis, 1+ LE edema Extremities - other findings: RUE welling. LUE with wound vac in place Skin: normal turgor Neurological: cranial nerve grossly intact Musculoskeletal: normal tone Psychiatric: normal affect Hosp A/P - Plan This is a 70 years old female who has significant past medical history as of ESRD, hypertension, combined heart failure was status post pacemaker, who was transfer from [facility] for infected AV graft. She developed sepsis with septic shock, required emergent I&D. Infected AV graft - s/p I&D --wound culture positive for MRSA. Cont Vanc on HD --Wound vac in place, surgery is following MRSA bacteremia --cont IV abx, Vanc. s/p [facility] 06/11, report pending --ID consulted, rpt BCx Sepsis with septic Shock - resolved --required vasopressors. HD stable --cont abx, rpt BCx to document clearance DVT right upper extremity --cont Eliquis ESRD on dialysis --further mgt as per nephrology team Combined heart failure with EF 30% --no evidence of decompensation. cont dialysis as per nephrology PAF with RVR on admission, required Cardizem gtt --rate controlled. consider resume BB when BP stable. Cont Eliquis as above CAD with history of PCI --cont statin. ASA/BB on hold - will consider resume when BP stablized Diabetes type 2 --cont Lantus, ISS Gout --stable Dyslipidemia --cont statin therapy Hypokalemia --replaced, follow BMP Acute hypoxic respiratory failure - resolved. Hx Colon Ca - s/p partial colectomy
[2020-06-13] MEDS: HumaLOG 300 UNITS/3 ML VIAL SC PRN (17:54)
[2020-06-13] MEDS: Atorvastatin Calcium 20 MG TAB PO SCH (21:30)
[2020-06-13] MEDS: Lidocaine Patch Removal TOP SCH (22:15)
[2020-06-14 04:40] LABS: Anion Gap 19 mmol/L (10-20); BUN (Urea Nitrogen) 85 mg/dL (9.8-20.1); Calc. Creatinine Clearance 10 mL/min (70-130); Calcium 7.7 mg/dL (7.8-10.44); Carbon Dioxide 18 mmol/L (23-31); Chloride 99 mmol/L (98-107); Estimated GFR-MDRD 6; Glucose 223 mg/dL (83-110); Potassium 4.4 mmol/L (3.5-5.1); Sodium 132 mmol/L (136-145)
[2020-06-14] MEDS: Gabapentin 300 MG CAP PO SCH (08:07)
[2020-06-14] MEDS: Famotidine 20 MG TAB PO SCH (08:07)
[2020-06-14] MEDS: Apixaban 5 MG TAB PO SCH ×2 (08:07→21:20)
[2020-06-14] MEDS: DULoxetine 60 MG CAP PO SCH (08:07)
[2020-06-14] MEDS: HYDROcodone/Acetaminophen 7.5/325 mg Tablet PO PRN ×2 (08:12→15:26)
[2020-06-14] MEDS: HumaLOG 300 UNITS/3 ML VIAL SC PRN ×3 (08:18→21:23)
--- NOTE | 2020-06-14 10:49 | PRG ---
DATE OF SERVICE: 06/14/2020 SUBJECTIVE: Patient was seen and examined at bedside and overnight events noted. Patient denies any shortness of breath or chest pain or palpitation. No history of nausea or vomiting or diarrhea or fever or chills or cramps. OBJECTIVE: GENERAL: This is a well-built female in no apparent distress. VITAL SIGNS: Temperature 97.9. Heart Rate 87. Respiratory rate 18. Blood pressure 110/65. HEENT: Atraumatic, normocephalic. Oral mucosa is moist. NECK: Supple. CARDIOVASCULAR: S1, S2 heard. Rate and rhythm regular. RESPIRATORY: Clear to auscultation. GASTROINTESTINAL: Abdomen is soft. MUSCULOSKELETAL: No tenderness. No edema. DERMATOLOGIC: No skin rash. NEUROLOGIC: Alert and awake and oriented x3. No focal neurologic deficits. Moving all the extremities. PSYCHIATRIC: Mood and affect normal. LABORATORY DATA: Potassium 4.4, BUN is 85, creatinine is 6.6. ASSESSMENT AND PLAN: 1. End-stage renal disease. Continue hemodialysis as tolerated; Sunday, Sunday, and Sunday. The patient is seen during dialysis. 2. Edema, controlled. 3. Hypertension. 4. Anemia. 5. Infected dialysis access. Appreciate help from Surgery. Continue antibiotics. Job ID: [id number]
[2020-06-14] MEDS ORDERED: HOLD VANCOMYCIN FOR LEVEL >20 FS SCH (11:30)
[2020-06-14] MEDS ORDERED: Vancomycin Sliding Scale 1 EACH FS ONE (11:30)
[2020-06-14] MEDS ORDERED: Vancomycin HCl 1.25 GM in Sodium Chloride 0.9% 250 ML 250 ML IVPB SCH (11:30)
[2020-06-14] MEDS ORDERED: Vancomycin HCl 750 MG in Sodium Chloride 0.9% 250 ML 250 ML IVPB SCH ×2 (11:30→15:30)
[2020-06-14] MEDS ORDERED: Vancomycin HCl 500 MG in Sodium Chloride 0.9% 100 ML IVPB SCH (11:30)
[2020-06-14] MEDS ORDERED: Vancomycin 1 GM in Premix Bag 1 BAG IVPB SCH (11:30)
[2020-06-14] MEDS ORDERED: Heparin 10,000 UNITS/ 10 ML VIAL ONE (11:53)
[2020-06-14] MEDS: Insulin Glargine 10 UNITS in Pre-Filled Syringe 1 EACH SC SCH (12:27)
[2020-06-14] MEDS: Lidocaine 5% Patch TD SCH (12:38)
[2020-06-14] MEDS: Vancomycin HCl 750 MG in Sodium Chloride 0.9% 250 ML 250 ML IVPB SCH ×2 (15:14→15:19)
--- NOTE | 2020-06-14 16:22 | PDOC.PALPN ---
Palliative Progress Note - Subjective Sleeping but arousable. Discomfort to both upper extremities. States she had difficulty tolerating dialysis today. - Objective Vital Signs: Vital Signs - Most Recent Temp Pulse Resp BP Pulse Ox 98.2 F 87 16 140/66 95 06/14/20 15:42 06/14/20 15:42 06/14/20 15:42 06/14/20 15:42 06/14/20 15:42 - Physical Exam Constitutional: ill appearing HEENT: EOMI, moist MMs, sclera anicteric Respiratory: no wheezing, unlabored breathing Cardiovascular: diminished peripheral pulses, irregular Gastrointestinal: soft, non-tender, incontinent Genitourinary: incontinent Musculoskeletal: no cyanosis, no clubbing Deviation from normal: edema to right upper extremity Skin: cap refill <2 seconds, bruising, fragile Deviation from normal: Wound as per wound photo Psychiatric: A&O x 3, normal mood - Plan Plan: Ms Bruce lives with her daughter and son-in-law in [place] in an independent home setting. Has three children and multiple grandchildren and great grandchildren. They call her Grandma and Grandma G. States most important thing to her is her family. She is frustrated with recent infection to dialysis cath, and poor toleration of dialysis today. Awaiting report from [facility] from last week. Confirmed MPOA. Patient daughter who is also MPOA is coming 06/16/2020 in the afternoon to discuss with patient and palliative care directive to physician. While the patient currently desires to have aggressive measures she would like to discuss potential care and make her wishes known to her daughter. [45] minutes spent on this encounter with >50% of the time in counseling and coordination of care. - ROS Constitutional: alert, weakness ENT: alteration in dentition Respiratory: other (Deneis cough or shortness of breath) Cardiology: other (Denies chest pain) Musculoskeletal: arm pain, arthritis/arthralgias Neurological: numbness, other (Denies confusion or dizziness) Skin: wounds
--- NOTE | 2020-06-14 18:10 | PDOC.HOSPP ---
- Subjective Subjective: complaints of pain. Pt was seen during dialysis. no fever. rpt cultures remains positive. - Objective Vital Signs & Weight: Vital Signs (12 hours) Temp Pulse Resp BP Pulse Ox 06/14/20 15:42 98.2 F 87 16 140/66 95 06/14/20 11:50 98.3 F 95 18 106/55 L 95 06/14/20 08:10 98 06/14/20 07:55 97.9 F 87 18 154/96 H 98 Weight Admit Weight 170 lb 3.136 oz Weight 185 lb 6.54 oz Most Recent Monitor Data Heart Rate from ECG 77 NIBP 116/55 NIBP BP-Mean 75 Respiration from ECG 24 SpO2 100 I&O: 06/13/20 06/14/20 06/15/20 06:59 06:59 06:59 Intake Total 120 720 Output Total 0 Balance 120 720 Result Diagrams: 06/13/20 04:29 06/14/20 03:51 Additional Labs: Accuchecks 06/14/20 06/14/20 06/13/20 16:44 06:23 20:38 POC Glucose 204 H 207 H 186 H Radiology Reviewed by me: Yes EKG Reviewed by me: Yes Hospitalist ROS - Medication Medications: Active Medications Generic Name Dose Route Start Last Admin Trade Name Freq PRN Reason Stop Dose Admin Acetaminophen 650 mg 06/05/20 00:35 06/12/20 04:55 Acetaminophen 650 Mg/20.3 Ml Udcup PO 650 mg Q6H PRN Administration Fever > 101 or Mild Pain Apixaban 5 mg 06/08/20 21:00 06/14/20 08:07 Apixaban 5 Mg Tab PO 5 mg BID PASCUAL Administration Atorvastatin Calcium 20 mg 06/05/20 21:00 06/13/20 21:30 Atorvastatin Calcium 20 Mg Tab PO 20 mg HS PASCUAL Administration Duloxetine HCl 60 mg 06/05/20 09:00 06/14/20 08:07 Duloxetine 60 Mg Cap PO 60 mg DAILY PASCUAL Administration Famotidine 20 mg 06/09/20 09:00 06/14/20 08:07 Famotidine 20 Mg Tab PO 20 mg 0900 PASCUAL Administration Gabapentin 300 mg 06/05/20 09:00 06/14/20 08:07 Gabapentin 300 Mg Cap PO 300 mg DAILY PASCUAL Administration Guaifenesin/Dextromethorphan 15 ml 06/05/20 00:25 06/11/20 18:22 Guaifenesin Dm 100-10/5 Ml Udcup PO 15 ml Q4H PRN Administration Cough Insulin Glargine 10 units/ 0.1 mls @ 0 mls/hr 06/05/20 09:00 06/14/20 12:27 Miscellaneous Medication SC 0.1 mls DAILY PASCUAL Administration Vancomycin HCl 25 mg/ Sodium 9.5 mls @ 0 mls/hr 06/09/20 11:15 06/09/20 11:26 Chloride 9.25 ml/ Heparin IVPB 9.5 mls Sodium (Porcine) 2,500 units/ WILLCALL PASCUAL Administration Syringe Insulin Human Lispro 0 units 06/05/20 00:30 06/14/20 08:18 Humalog 300 Units/3 Ml Vial SC 3 unit .MILD SLIDING SCALE PRN Administration Mild Correctional Scale Insulin Human Lispro 0 units 06/10/20 21:27 06/12/20 22:54 Humalog 300 Units/3 Ml Vial SC 2 unit .BEDTIME SLIDING SC PRN Administration Bedtime Correctional Scale Lidocaine 1 patch 06/13/20 11:00 06/14/20 12:38 Lidocaine 5% Patch TD 1 patch 1100 PASCUAL Administration Miscellaneous Medication 1 each 06/13/20 23:00 06/13/20 22:15 Lidocaine Patch Removal TOP Not Given 2300 PASCUAL Ondansetron HCl 4 mg 06/05/20 00:25 06/12/20 04:59 Ondansetron Pf 4 Mg/2 Ml Vial IVP 4 mg Q6H PRN Administration Nausea/Vomiting use 1st Sodium Chloride 10 ml 06/05/20 09:00 06/14/20 12:29 Flush - Normal Saline 10 Ml Syringe IVF 10 ml Q12HR PASCUAL Administration Sodium Chloride 10 ml 06/05/20 00:45 06/12/20 04:59 Flush - Normal Saline 10 Ml Syringe IVF 10 ml PRN PRN Administration Saline Flush Hosp A/P - Plan - Exam Eye: PERRL ENT: normocephalic atraumatic Neck: supple, symmetric Heart: RRR, no murmur Respiratory: CTAB, no wheezes Gastrointestinal: soft, non-tender Extremities: no cyanosis, 1+ LE edema Extremities - other findings: RUE welling. LUE with wound vac in place Skin: normal turgor Neurological: cranial nerve grossly intact Musculoskeletal: normal tone Psychiatric: normal affect This is a 70 years old female who has significant past medical history as of ESRD, hypertension, combined heart failure was status post pacemaker, who was transfer from [facility] for infected AV graft. She developed sepsis with septic shock, required emergent I&D. Infected AV graft - s/p I&D --wound culture positive for MRSA. Cont Vanc on HD --Wound vac in place, cont local wound care. surgery is following --adjust pain regimen --CM consult for inpt rehab MRSA bacteremia --cont IV abx, Vanc. s/p [facility] 06/11, report pending --ID consulted, rpt BCx Sepsis with septic Shock - resolved --required vasopressors. HD stable --cont abx, rpt BCx remains positive DVT right upper extremity --cont Eliquis ESRD on dialysis --further mgt as per nephrology team Combined heart failure with EF 30% --no evidence of decompensation. cont dialysis as per nephrology PAF with RVR on admission, required Cardizem gtt --rate controlled. consider resume BB when BP stable. Cont Eliquis as above CAD with history of PCI --cont statin. ASA/BB on hold - will consider resume when BP stablized Diabetes type 2 --cont Lantus, ISS Gout --stable Dyslipidemia --cont statin therapy Hypokalemia --replaced, follow BMP Acute hypoxic respiratory failure - resolved. Hx Colon Ca - s/p partial colectomy
[2020-06-14] MEDS: HYDROcodone/Acetaminophen 10/325 mg Tablet PO PRN (21:20)
[2020-06-14] MEDS: Atorvastatin Calcium 20 MG TAB PO SCH (21:20)
[2020-06-14] MEDS: Lidocaine Patch Removal TOP SCH (21:20)
[2020-06-15] MEDS: HYDROcodone/Acetaminophen 10/325 mg Tablet PO PRN ×3 (03:49→21:32)
[2020-06-15] MEDS: Ondansetron PF 4 MG/2 ML Vial IVP PRN (03:53)
[2020-06-15 04:24] LABS: Anion Gap 20 mmol/L (10-20); BUN (Urea Nitrogen) 64 mg/dL (9.8-20.1); Calc. Creatinine Clearance 11 mL/min (70-130); Calcium 7.8 mg/dL (7.8-10.44); Carbon Dioxide 20 mmol/L (23-31); Chloride 97 mmol/L (98-107); Estimated GFR-MDRD 7; Glucose 164 mg/dL (83-110); Sodium 133 mmol/L (136-145)
[2020-06-15] MEDS: HumaLOG 300 UNITS/3 ML VIAL SC PRN (05:42)
[2020-06-15] MEDS: Apixaban 5 MG TAB PO SCH ×2 (09:00→21:17)
[2020-06-15] MEDS: DULoxetine 60 MG CAP PO SCH (09:00)
[2020-06-15] MEDS: Famotidine 20 MG TAB PO SCH (09:00)
[2020-06-15] MEDS: Gabapentin 300 MG CAP PO SCH (09:00)
[2020-06-15] MEDS: Insulin Glargine 10 UNITS in Pre-Filled Syringe 1 EACH SC SCH (09:01)
--- NOTE | 2020-06-15 11:15 | PRG ---
DATE OF SERVICE: 06/15/2020 SUBJECTIVE: Patient was seen and examined at bedside and overnight events noted. Patient denies any shortness of breath or chest pain or palpitation. No history of nausea or vomiting or diarrhea or fever or chills or cramps. OBJECTIVE: GENERAL: This is a well-built female, in no apparent distress. VITAL SIGNS: Temperature 98.2. Heart rate 93. Respiratory rate 16. Blood pressure 126/60. HEENT: Atraumatic, normocephalic. Oral mucosa is moist NECK: Supple. CARDIOVASCULAR: S1, S2 heard. Rate and rhythm regular. RESPIRATORY: Clear to auscultation. GASTROINTESTINAL: Abdomen is soft. MUSCULOSKELETAL: No tenderness. No edema. DERMATOLOGIC: No skin rash. NEUROLOGIC: Alert and awake and oriented X3. No focal neurologic deficits. Moving all the extremities. PSYCHIATRIC: Mood and affect normal. LABORATORY DATA: Potassium 4.0, BUN is 64, creatinine is 5.7. ASSESSMENT AND PLAN: 1. End-stage renal disease. Continue on dialysis. 2. Edema. 3. Hypertension. 4. Anemia of chronic disease. 5. Continue on dialysis Sunday, Sunday, and Sunday as tolerated. Job ID: [id number]
--- NOTE | 2020-06-15 14:08 | PDOC.GSPN ---
Surgery Progress Note: Subj - Subjective Narrative: Patient was asleep when I came by today. Her VAC dressing is intact with a good seal and there is no drainage in the canister. It looked excellent according to the wound care nurse when she changed yesterday. I will see her with wound care tomorrow and we would consider reapproximating the wound at intervals. Surgery Progress Note: Obj - Vital signs Vital signs: Vital Signs - Most Recent Temp Pulse Resp BP Pulse Ox 97.9 F 84 14 96/57 L 96 06/15/20 12:44 06/15/20 12:44 06/15/20 12:44 06/15/20 12:44 06/15/20 12:44 Surgery Progress Note: Results - Labs Result Diagrams: 06/13/20 04:29 06/15/20 04:03 Lab results: Laboratory Results - last 24 hr 06/15/20 06/15/20 06/15/20 04:03 05:30 12:22 Sodium 133 L Potassium 4.0 Chloride 97 L Carbon Dioxide 20 L Anion Gap 20 BUN 64 H Creatinine 5.76 H Estimated GFR (MDRD) 7 Glucose 164 H POC Glucose 186 H 156 H Calcium 7.8
[2020-06-15] MEDS: Lidocaine 5% Patch TD SCH (15:20)
--- NOTE | 2020-06-15 17:27 | PDOC.HOSPP ---
- Subjective Subjective: c/o some epigastric discomfort. attribute to gas pain. - Objective Vital Signs & Weight: Vital Signs (12 hours) Temp Pulse Pulse Pulse Resp BP BP 06/15/20 16:15 98.3 F 87 16 06/15/20 12:44 97.9 F 84 14 06/15/20 09:11 89 99 92/59 L 127/76 06/15/20 09:10 06/15/20 08:00 97.8 F 88 16 BP Pulse Ox 06/15/20 16:15 110/60 97 06/15/20 12:44 96/57 L 96 06/15/20 09:11 06/15/20 09:10 96 06/15/20 08:00 92/59 L 96 Weight Admit Weight 170 lb 3.136 oz Weight 178 lb 9.191 oz Most Recent Monitor Data Heart Rate from ECG 77 NIBP 116/55 NIBP BP-Mean 75 Respiration from ECG 24 SpO2 100 I&O: 06/14/20 06/15/20 06/16/20 06:59 06:59 06:59 Intake Total 720 790 Balance 720 790 Result Diagrams: 06/13/20 04:29 06/15/20 04:03 Additional Labs: Accuchecks 06/15/20 06/15/20 06/15/20 17:04 12:22 05:30 POC Glucose 144 H 156 H 186 H 06/14/20 21:18 POC Glucose 209 H Radiology Reviewed by me: Yes EKG Reviewed by me: Yes Hospitalist ROS - Medication Medications: Active Medications Generic Name Dose Route Start Last Admin Trade Name Freq PRN Reason Stop Dose Admin Acetaminophen 650 mg 06/05/20 00:35 06/12/20 04:55 Acetaminophen 650 Mg/20.3 Ml Udcup PO 650 mg Q6H PRN Administration Fever > 101 or Mild Pain Hydrocodone Bitart/Acetaminophen 1 tab 06/14/20 17:52 06/15/20 08:59 Hydrocodone/Acetaminophen 10/325 Mg Tablet PO 1 tab Q4H PRN Administration Severe Pain (7-10) Apixaban 5 mg 06/08/20 21:00 06/15/20 09:00 Apixaban 5 Mg Tab PO 5 mg BID PASCUAL Administration Atorvastatin Calcium 20 mg 06/05/20 21:00 06/14/20 21:20 Atorvastatin Calcium 20 Mg Tab PO 20 mg HS PASCUAL Administration Duloxetine HCl 60 mg 06/05/20 09:00 06/15/20 09:00 Duloxetine 60 Mg Cap PO 60 mg DAILY PASCUAL Administration Famotidine 20 mg 06/09/20 09:00 06/15/20 09:00 Famotidine 20 Mg Tab PO 20 mg 0900 PASCUAL Administration Gabapentin 300 mg 06/05/20 09:00 06/15/20 09:00 Gabapentin 300 Mg Cap PO 300 mg DAILY PASCUAL Administration Guaifenesin/Dextromethorphan 15 ml 06/05/20 00:25 06/11/20 18:22 Guaifenesin Dm 100-10/5 Ml Udcup PO 15 ml Q4H PRN Administration Cough Insulin Glargine 10 units/ 0.1 mls @ 0 mls/hr 06/05/20 09:00 06/15/20 09:01 Miscellaneous Medication SC 0.1 mls DAILY PASCUAL Administration Vancomycin HCl 25 mg/ Sodium 9.5 mls @ 0 mls/hr 06/09/20 11:15 06/09/20 11:26 Chloride 9.25 ml/ Heparin IVPB 9.5 mls Sodium (Porcine) 2,500 units/ WILLCALL PASCUAL Administration Syringe Insulin Human Lispro 0 units 06/05/20 00:30 06/15/20 05:42 Humalog 300 Units/3 Ml Vial SC 2 unit .MILD SLIDING SCALE PRN Administration Mild Correctional Scale Insulin Human Lispro 0 units 06/10/20 21:27 06/14/20 21:23 Humalog 300 Units/3 Ml Vial SC 2 unit .BEDTIME SLIDING SC PRN Administration Bedtime Correctional Scale Lidocaine 1 patch 06/13/20 11:00 06/15/20 15:20 Lidocaine 5% Patch TD Not Given 1100 PASCUAL Miscellaneous Medication 1 each 06/13/20 23:00 06/14/20 21:20 Lidocaine Patch Removal TOP Not Given 2300 [facility] Ondansetron HCl 4 mg 06/05/20 00:25 06/15/20 03:53 Ondansetron Pf 4 Mg/2 Ml Vial IVP 4 mg Q6H PRN Administration Nausea/Vomiting use 1st Sodium Chloride 10 ml 06/05/20 09:00 06/15/20 09:01 Flush - Normal Saline 10 Ml Syringe IVF 10 ml Q12HR PASCUAL Administration Sodium Chloride 10 ml 06/05/20 00:45 06/15/20 03:53 Flush - Normal Saline 10 Ml Syringe IVF 10 ml PRN PRN Administration Saline Flush Hosp A/P - Plan - Exam Eye: PERRL ENT: normocephalic atraumatic Neck: supple, symmetric Heart: RRR, no murmur Respiratory: CTAB, no wheezes Gastrointestinal: soft, non-tender Extremities: no cyanosis, 1+ LE edema Extremities - other findings: RUE welling. LUE with wound vac in place Skin: normal turgor Neurological: cranial nerve grossly intact Musculoskeletal: normal tone Psychiatric: normal affect This is a 70 years old female who has significant past medical history as of ESRD, hypertension, combined heart failure was status post AICD, who was transfer from [facility] for infected AV graft. She developed sepsis with septic shock, required emergent I&D. Infected AV graft - s/p I&D --wound culture positive for MRSA. Cont Vanc on HD --Wound vac in place, cont local wound care. surgery is following --adjust pain regimen --attempted to call daughter, but didn't pecan picker. Pt preferred to go home when medically ready MRSA bacteremia --cont IV abx, Vanc. s/p [facility] 06/11, unable to locate the op report --ID consulted, rpt BCx Sepsis with septic Shock - resolved --required vasopressors. 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 cont dialysis as per nephrology PAF with RVR on admission, required Cardizem gtt --rate controlled. consider resume BB when BP stable. Cont Eliquis as above CAD with history of PCI --cont statin. ASA/BB on hold - will consider resume when BP stablized Diabetes type 2 --cont Lantus, ISS Gout --stable Dyslipidemia --cont statin therapy Hypokalemia --replaced, follow BMP Acute hypoxic respiratory failure - resolved. Hx Colon Ca - s/p partial colectomy
[2020-06-15] MEDS: Atorvastatin Calcium 20 MG TAB PO SCH (21:17)
[2020-06-16] MEDS: Lidocaine Patch Removal TOP SCH (01:19)
[2020-06-16] MEDS: HYDROcodone/Acetaminophen 10/325 mg Tablet PO PRN ×2 (06:22→11:39)
[2020-06-16 10:03] LABS: Vancomycin, Random 13.3 ug/mL (See Comment)
[2020-06-16] MEDS ORDERED: traMADol HCl 50 MG TAB PO PRN (10:43)
[2020-06-16] MEDS: DULoxetine 60 MG CAP PO SCH (11:33)
[2020-06-16] MEDS: Apixaban 5 MG TAB PO SCH ×2 (11:33→21:13)
[2020-06-16] MEDS: Gabapentin 300 MG CAP PO SCH (11:33)
[2020-06-16] MEDS: Lidocaine 5% Patch TD SCH ×3 (11:34→18:23)
[2020-06-16] MEDS ORDERED: Heparin 10,000 UNITS/ 10 ML VIAL ONE (11:35)
[2020-06-16] MEDS: Insulin Glargine 10 UNITS in Pre-Filled Syringe 1 EACH SC SCH (11:38)
--- NOTE | 2020-06-16 12:17 | PRG ---
DATE OF SERVICE: 06/16/2020 SUBJECTIVE: Patient was seen and examined at bedside and overnight events noted. Patient denies any shortness of breath or chest pain or palpitation. No history of nausea or vomiting or diarrhea or fever or chills or cramps. OBJECTIVE: GENERAL: This is a well-built female, in no apparent distress. Vital Signs: Temperature 98.3. Heart Rate 77. Respiratory rate 18. Blood pressure 86/54. HEENT: Atraumatic, normocephalic. Oral mucosa is moist. Neck: Supple. Cardiovascular: S1, S2 heard. Rate and rhythm regular. Respiratory: Clear to auscultation. Gastrointestinal: Abdomen is soft. Musculoskeletal: No tenderness. No edema. Dermatologic: No skin rash. Neurologic: Alert and awake and oriented x3. No focal neurologic deficits. Moving all the extremities. Psychiatric: Mood and affect normal. LABORATORY DATA: Not done today. ASSESSMENT AND PLAN: 1. End-stage renal disease. Continue dialysis on Sunday, Sunday, and Sunday. The patient was seen during dialysis. The patient is having hypotension. 2. Edema, remove fluid if tolerated. 3. Hypotension. 4. Anemia of chronic disease. Continue dialysis Sunday, Sunday, and Sunday. Limit fluid intake. Prognosis guarded. The patient is not tolerating dialysis well. Job ID: [id number]
[2020-06-16] MEDS: HumaLOG 300 UNITS/3 ML VIAL SC PRN (12:27)
[2020-06-16] MEDS ORDERED: Albumin 25% 25 GM/100 ML BOT IVPB SCH (13:23)
[2020-06-16] MEDS ORDERED: Epoetin (ESRD) 20,000 UNITS/ML IVP SCH (13:30)
--- NOTE | 2020-06-16 13:39 | PRG ---
DATE OF SERVICE: 06/16/2020 SUBJECTIVE: Teo is in tele now. She is awake and complaining of an inability to eat properly because of an area of ulceration in the frontal left incisor under the lip and the gum line. No visual symptoms. No back pain. No dyspnea or chest pain. She has pain across the upper abdomen intermittently. Does not have much urine output. No diarrhea. Some pain in the knees, but that is chronic. OBJECTIVE: VITAL SIGNS: T-max 98.8, blood pressure 86/54, heart rate 96, respiratory rate 16. SKIN: The site of the previous AV graft, for the most part, has granulation tissue. There are a few dark areas in the top aspect of the wound. The tunneled catheter in the left IJ position appears to be without inflammatory changes or tenderness. GENERAL: She appears chronically ill, but in no acute distress. She is oriented. HEENT: Ocular movements conjugate. Pupils are equal. Oral cavity is moist. She has that loose tooth left upper incisor with a fairly large area of ulceration with yellow tissue at the base right above this loose dental structure. No thrush. NECK: Supple. LUNGS: Symmetric, clear breath sounds. HEART: Diminished heart sounds. I could not hear any murmurs. ABDOMEN: Not tender. No ascites. No organomegaly or bladder distention. EXTREMITIES: She is able to move all extremities on command. No edema. Pulses 1+ in dorsalis pedis. Plantar responses are flexor. NEUROLOGIC: She is oriented. Follows commands. Speech appears to be normal. LABORATORY DATA: Vancomycin trough 13 today. White cell count 10.9, hemoglobin 10.3, platelets 90,000. She had blood cultures repeated on June 13, they are still both positive for MRSA, the cultures are obtained from the right arm. There is an echocardiogram from the , which showed wide open mitral regurgitation, she has moderate aortic regurg. ASSESSMENT AND DISCUSSION: Type 2 diabetes, end-stage renal disease with an infection of the left upper extremity graft which was removed secondary to methicillin-resistant Staphylococcus aureus bacteremia due to methicillin-resistant Staphylococcus aureus, which appears to be persistent now even after graft removal and antimicrobial therapy with sliding scale vancomycin. Recently diagnosed colon cancer with lymph node invasiveness with resection, anastomosis. Automatic implantable cardioverter-defibrillator in place and a catheter for a dialysis tunneled into the left IJ position. The concern here is with colonization of the hemodialysis catheter in the left IJ position or automatic implantable cardioverter-defibrillator lead colonization, plus-minus mitral or aortic valve endocarditis. It is a difficult situation and we will have repeat cultures from the next dialysis, but she may have to have this catheter removed as well as a GENET to evaluate the leads and the valves. Job ID: [id number]
[2020-06-16] MEDS ORDERED: EPOETIN ALFA-EPBX (ESRD) 10,000 UNIT/ML VIAL IVP SCH (14:00)
--- NOTE | 2020-06-16 14:09 | PDOC.GSPN ---
Surgery Progress Note: Subj - Subjective Narrative: Incisions look good. They are clean and granulating and there is no exposed graft. I think the patient's skin is to delicate to reapproximate with sutures so we are going to try to bring the skin edges little closer together with a VAC dressing itself. From a surgical standpoint she is ready for discharge with ongoing antibiotics during dialysis. I will see her back in my clinic in a couple weeks. Surgery Progress Note: Obj - Vital signs Vital signs: Vital Signs - Most Recent Temp Pulse Resp BP Pulse Ox 98.3 F 94 15 80/50 L 94 L 06/16/20 12:30 06/16/20 12:30 06/16/20 12:30 06/16/20 12:30 06/16/20 12:30 Surgery Progress Note: Results - Labs Result Diagrams: 06/13/20 04:29 06/15/20 04:03 Lab results: Laboratory Results - last 24 hr 06/16/20 06/16/20 06/16/20 05:58 09:36 11:17 POC Glucose 164 H 168 H Random Vancomycin 13.3
[2020-06-16] MEDS ORDERED: Midodrine HCl 5 MG TAB PO SCH (15:45)
--- NOTE | 2020-06-16 19:05 | PDOC.HOSPP ---
- Subjective Subjective: Patient was seen examined at bedside. She was hypotensive this morning. Updated family member, her daughter at bedside. Discussed with palliative cares team. - Objective Vital Signs & Weight: Vital Signs (12 hours) Temp Pulse Resp BP Pulse Ox 06/16/20 16:51 99 F 98 18 117/59 L 95 06/16/20 12:30 98.3 F 94 15 80/50 L 94 L 06/16/20 07:45 98.3 F 96 16 86/54 L Weight Admit Weight 170 lb 3.136 oz Weight 174 lb 9.698 oz Most Recent Monitor Data Heart Rate from ECG 77 NIBP 116/55 NIBP BP-Mean 75 Respiration from ECG 24 SpO2 100 I&O: 06/15/20 06/16/20 06/17/20 06:59 06:59 06:59 Intake Total 511 287 0159 Output Total 1650 Balance 790 840 -450 Result Diagrams: 06/13/20 04:29 06/15/20 04:03 Additional Labs: Accuchecks 06/16/20 06/16/20 06/16/20 17:38 11:17 05:58 POC Glucose 113 H 168 H 164 H 06/15/20 20:31 POC Glucose 146 H Radiology Reviewed by me: Yes EKG Reviewed by me: Yes Hospitalist ROS - Medication Medications: Active Medications Generic Name Dose Route Start Last Admin Trade Name Freq PRN Reason Stop Dose Admin Acetaminophen 650 mg 06/05/20 00:35 06/12/20 04:55 Acetaminophen 650 Mg/20.3 Ml Udcup PO 650 mg Q6H PRN Administration Fever > 101 or Mild Pain Hydrocodone Bitart/Acetaminophen 1 tab 06/14/20 17:52 06/16/20 11:39 Hydrocodone/Acetaminophen 10/325 Mg Tablet PO 1 tab Q4H PRN Administration Severe Pain (7-10) Apixaban 5 mg 06/08/20 21:00 06/16/20 11:33 Apixaban 5 Mg Tab PO 5 mg BID PASCUAL Administration Atorvastatin Calcium 20 mg 06/05/20 21:00 06/15/20 21:17 Atorvastatin Calcium 20 Mg Tab PO 20 mg HS PASCUAL Administration Duloxetine HCl 60 mg 06/05/20 09:00 06/16/20 11:33 Duloxetine 60 Mg Cap PO 60 mg DAILY PASCUAL Administration Epoetin Yrn-epbx 10,000 unit 06/16/20 14:00 06/16/20 14:42 Epoetin Yrn-Epbx (Esrd) 10,000 Unit/Ml Vial IVP 10,000 unit [email or web address] PASCUAL Administration Gabapentin 300 mg 06/05/20 09:00 06/16/20 11:33 Gabapentin 300 Mg Cap PO 300 mg DAILY PASCUAL Administration Guaifenesin/Dextromethorphan 15 ml 06/05/20 00:25 06/11/20 18:22 Guaifenesin Dm 100-10/5 Ml Udcup PO 15 ml Q4H PRN Administration Cough Insulin Glargine 10 units/ 0.1 mls @ 0 mls/hr 06/05/20 09:00 06/16/20 11:38 Miscellaneous Medication SC Not Given DAILY PASCUAL Vancomycin HCl 25 mg/ Sodium 9.5 mls @ 0 mls/hr 06/09/20 11:15 06/09/20 11:26 Chloride 9.25 ml/ Heparin IVPB 9.5 mls Sodium (Porcine) 2,500 units/ WILLCALL PASCUAL Administration Syringe Vancomycin HCl 750 mg/ Sodium 250 mls @ 250 mls/hr 06/14/20 11:30 06/16/20 18:19 Chloride IVPB 250 mls WILLCALL PASCUAL Administration Insulin Human Lispro 0 units 06/05/20 00:30 06/16/20 12:27 Humalog 300 Units/3 Ml Vial SC 2 unit .MILD SLIDING SCALE PRN Administration Mild Correctional Scale Insulin Human Lispro 0 units 06/10/20 21:27 06/14/20 21:23 Humalog 300 Units/3 Ml Vial SC 2 unit .BEDTIME SLIDING SC PRN Administration Bedtime Correctional Scale Lidocaine 1 patch 06/13/20 11:00 06/16/20 18:23 Lidocaine 5% Patch TD 1 patch 1100 PASCUAL Administration Miscellaneous Medication 1 each 06/13/20 23:00 06/16/20 01:19 Lidocaine Patch Removal TOP Not Given 2300 [facility] Ondansetron HCl 4 mg 06/05/20 00:25 06/15/20 03:53 Ondansetron Pf 4 Mg/2 Ml Vial IVP 4 mg Q6H PRN Administration Nausea/Vomiting use 1st Pantoprazole Sodium 40 mg 06/15/20 21:00 06/15/20 21:17 Pantoprazole 40 Mg Tab PO 40 mg HS PASCUAL Administration Sodium Chloride 10 ml 06/05/20 09:00 06/16/20 11:34 Flush - Normal Saline 10 Ml Syringe IVF 10 ml Q12HR PASCUAL Administration Sodium Chloride 10 ml 06/05/20 00:45 06/15/20 03:53 Flush - Normal Saline 10 Ml Syringe IVF 10 ml PRN PRN Administration Saline Flush Hosp A/P - Plan - Exam Eye: PERRL ENT: normocephalic atraumatic Neck: supple, symmetric Heart: RRR, no murmur Respiratory: CTAB, no wheezes Gastrointestinal: soft, non-tender Extremities: no cyanosis, 1+ LE edema Extremities - other findings: RUE welling. LUE with wound vac in place Skin: normal turgor Neurological: cranial nerve grossly intact Musculoskeletal: normal tone Psychiatric: normal affect This is a 70 years old female who has significant past medical history as of ESRD, hypertension, combined heart failure was status post AICD, who was transfer from [facility] for infected AV graft. She developed sepsis with septic shock, required emergent I&D. Hypotension --Add Midrin, monitor BP Infected AV graft - s/p I&D --wound culture positive for MRSA. Cont Vanc on HD --Wound vac in place, cont local wound care. surgery is following --adjust pain regimen --updated pt's daughter MRSA bacteremia --cont IV abx, Vanc. s/p GENET 06/11, unable to locate the op report --ID consulted, rpt BCx Sepsis with septic Shock - resolved --required vasopressors. 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 cont dialysis as per nephrology PAF with RVR on admission, required Cardizem gtt --rate controlled. consider resume BB when BP stable. Cont Eliquis as above CAD with history of PCI --cont statin. ASA/BB on hold - will consider resume when BP stablized Diabetes type 2 --cont Lantus, ISS Gout --stable Dyslipidemia --cont statin therapy Hypokalemia --replaced, follow BMP Acute hypoxic respiratory failure - resolved. Hx Colon Ca - s/p partial colectomy
[2020-06-16] MEDS: Midodrine HCl 5 MG TAB PO SCH (21:12)
[2020-06-16] MEDS: Atorvastatin Calcium 20 MG TAB PO SCH (21:12)
[2020-06-17 05:03] LABS: #Eosinphils 0.1 thou/uL (0.0-0.7); #Lymphocytes 0.6 thou/uL (1.20-3.40); #Neutrophils 8.2 thou/uL (1.40-6.50); %Basophils 0.4 % (0.0-1.0); %Eosinophils 0.7 % (0.0-10.0); %Lymphocytes 5.7 % (21.0-51.0); %Monocytes 10.1 % (0.0-10.0); %Neutrophils 83.1 % (42.0-75.0); Hemoglobin 10.1 g/dL (12.0-16.0); Mean Corpuscular Hemoglobin 34.7 pg (27.0-31.0); Mean Platelet Volume 10.9 fL (7.4-10.4); Platelet Count 119 thou/uL (130-400); RBC Distribution Width 13.5 % (11.5-14.5); Red Blood Cell (RBC) Count 2.91 mill/uL (4.20-5.40); White Blood Cell (WBC) Count 9.9 thou/uL (4.8-10.8)
[2020-06-17] MEDS: Lidocaine Patch Removal TOP SCH (05:53)
[2020-06-17] MEDS: Midodrine HCl 5 MG TAB PO SCH ×3 (07:57→21:08)
[2020-06-17] MEDS: Gabapentin 300 MG CAP PO SCH (07:57)
[2020-06-17] MEDS: Ondansetron PF 4 MG/2 ML Vial IVP PRN (07:57)
[2020-06-17] MEDS: DULoxetine 60 MG CAP PO SCH (07:57)
[2020-06-17] MEDS: Apixaban 5 MG TAB PO SCH ×2 (07:59→21:08)
[2020-06-17] MEDS: Insulin Glargine 10 UNITS in Pre-Filled Syringe 1 EACH SC SCH (10:30)
[2020-06-17] MEDS: HumaLOG 300 UNITS/3 ML VIAL SC PRN ×2 (11:56→18:15)
--- NOTE | 2020-06-17 12:50 | PRG ---
DATE OF SERVICE: 06/17/2020 SUBJECTIVE: Patient was seen and examined at bedside and overnight events noted. Patient denies any shortness of breath or chest pain or palpitation. No history of nausea or vomiting or diarrhea or fever or chills or cramps. OBJECTIVE: GENERAL: This is a well-built female, in no apparent distress. VITAL SIGNS: Temperature 98.0. Heart rate 97. Respiratory rate 16. Blood pressure 112/64. HEENT: Atraumatic, normocephalic. Oral mucosa is moist NECK: Supple. CARDIOVASCULAR: S1, S2 heard. Rate and rhythm regular. RESPIRATORY: Clear to auscultation. GASTROINTESTINAL: Abdomen is soft. MUSCULOSKELETAL: No tenderness. No edema. DERMATOLOGIC: No skin rash. NEUROLOGIC: Alert and awake and oriented X3. No focal neurologic deficits. Moving all the extremities. PSYCHIATRIC: Mood and affect normal. LABORATORY DATA: Not done today. ASSESSMENT AND PLAN: 1. End-stage renal disease. Continue dialysis on Sunday, Sunday, and Sunday. 2. Edema. 3. Hypertension. 4. Anemia of chronic disease. We will continue on dialysis as tolerated. Job ID: [id number]
--- NOTE | 2020-06-17 15:53 | PDOC.GSPN ---
Surgery Progress Note: Subj - Subjective Narrative: Patient had some nausea this morning but that is better after receiving nausea medications. She has not had a bowel movement in some time although she feels the need to. She had some hypotension yesterday morning but this has improved. Her second set of blood cultures came back positive for MRSA but her more recent blood cultures are no growth to date. VAC dressing looks clean and there is minimal drainage. No abdominal pain or tenderness. Assessment/plan: Sepsis due to infected left upper arm graft status post excision. Being treated with IV antibiotics and VAC dressing. Monitoring for colonization of her catheter or AICD. Nausea may be exacerbated by constipation; docusate and MiraLAX ordered. Will see with wound care team tomorrow. Surgery Progress Note: Obj - Vital signs Vital signs: Vital Signs - Most Recent Temp Pulse Resp BP Pulse Ox 98.3 F 95 14 105/59 L 94 L 06/17/20 12:03 06/17/20 12:03 06/17/20 12:03 06/17/20 12:03 06/17/20 12:03 Surgery Progress Note: Results - Labs Result Diagrams: 06/17/20 04:05 06/15/20 04:03 Lab results: Laboratory Results - last 24 hr 06/17/20 06/17/20 06/17/20 04:05 06:06 11:00 WBC 9.9 RBC 2.91 L Hgb 10.1 L Hct 31.6 L MCV 109.0 H MCH 34.7 H MCHC 32.0 RDW 13.5 Plt Count 119 L MPV 10.9 H Neutrophils % 83.1 H Neutrophils % (Manual) Not Reportable Lymphocytes % 5.7 L Monocytes % 10.1 H Eosinophils % 0.7 Basophils % 0.4 Neutrophils # 8.2 H Lymphocytes # 0.6 L Monocytes # 1.0 H Eosinophils # 0.1 Basophils # 0.0 POC Glucose 146 H 166 H
--- NOTE | 2020-06-17 17:33 | PDOC.HOSPP ---
- Subjective Subjective: BP improved. Midrin was added yesterday she complaints of bloated and gas pain after meal. no BM recently - Objective Vital Signs & Weight: Vital Signs (12 hours) Temp Pulse Resp BP Pulse Ox 06/17/20 12:03 98.3 F 95 14 105/59 L 94 L 06/17/20 08:15 98.0 F 97 16 99/57 L 96 Weight Admit Weight 170 lb 3.136 oz Weight 170 lb 6.677 oz Most Recent Monitor Data Heart Rate from ECG 77 NIBP 116/55 NIBP BP-Mean 75 Respiration from ECG 24 SpO2 100 I&O: 06/16/20 06/17/20 06/18/20 06:59 06:59 06:59 Intake Total 840 1320 120 Output Total 1650 Balance 840 -330 120 Result Diagrams: 06/17/20 04:05 06/15/20 04:03 Additional Labs: Accuchecks 06/17/20 06/17/20 06/17/20 16:43 11:00 06:06 POC Glucose 182 H 166 H 146 H 06/16/20 06/16/20 20:37 17:38 POC Glucose 129 H 113 H Radiology Reviewed by me: Yes EKG Reviewed by me: Yes Hospitalist ROS - Medication Medications: Active Medications Generic Name Dose Route Start Last Admin Trade Name Gerryq PRN Reason Stop Dose Admin Acetaminophen 650 mg 06/05/20 00:35 06/12/20 04:55 Acetaminophen 650 Mg/20.3 Ml Udcup PO 650 mg Q6H PRN Administration Fever > 101 or Mild Pain Hydrocodone Bitart/Acetaminophen 1 tab 06/14/20 17:52 06/16/20 11:39 Hydrocodone/Acetaminophen 10/325 Mg Tablet PO 1 tab Q4H PRN Administration Severe Pain (7-10) Apixaban 5 mg 06/08/20 21:00 06/17/20 07:59 Apixaban 5 Mg Tab PO 5 mg BID PASCUAL Administration Atorvastatin Calcium 20 mg 06/05/20 21:00 06/16/20 21:12 Atorvastatin Calcium 20 Mg Tab PO 20 mg HS PASCUAL Administration Duloxetine HCl 60 mg 06/05/20 09:00 06/17/20 07:57 Duloxetine 60 Mg Cap PO 60 mg DAILY PASCUAL Administration Epoetin Yrn-epbx 10,000 unit 06/16/20 14:00 06/16/20 14:42 Epoetin Yrn-Epbx (Esrd) 10,000 Unit/Ml Vial IVP 10,000 unit [email or web address] PASCUAL Administration Gabapentin 300 mg 06/05/20 09:00 06/17/20 07:57 Gabapentin 300 Mg Cap PO 300 mg DAILY PASCUAL Administration Guaifenesin/Dextromethorphan 15 ml 06/05/20 00:25 06/11/20 18:22 Guaifenesin Dm 100-10/5 Ml Udcup PO 15 ml Q4H PRN Administration Cough Insulin Glargine 10 units/ 0.1 mls @ 0 mls/hr 06/05/20 09:00 06/17/20 10:30 Miscellaneous Medication SC Not Given DAILY PASCUAL Vancomycin HCl 25 mg/ Sodium 9.5 mls @ 0 mls/hr 06/09/20 11:15 06/09/20 11:26 Chloride 9.25 ml/ Heparin IVPB 9.5 mls Sodium (Porcine) 2,500 units/ WILLCALL PASCUAL Administration Syringe Vancomycin HCl 750 mg/ Sodium 250 mls @ 250 mls/hr 06/14/20 11:30 06/16/20 18:19 Chloride IVPB 250 mls WILLCALL PASCUAL Administration Insulin Human Lispro 0 units 06/05/20 00:30 06/17/20 11:56 Humalog 300 Units/3 Ml Vial SC 2 unit .MILD SLIDING SCALE PRN Administration Mild Correctional Scale Insulin Human Lispro 0 units 06/10/20 21:27 06/14/20 21:23 Humalog 300 Units/3 Ml Vial SC 2 unit .BEDTIME SLIDING SC PRN Administration Bedtime Correctional Scale Lidocaine 1 patch 06/13/20 11:00 06/16/20 18:23 Lidocaine 5% Patch TD 1 patch 1100 PASCUAL Administration Midodrine 5 mg 06/16/20 21:00 06/17/20 07:59 Midodrine Hcl 5 Mg Tab PO 5 mg TID PASCUAL Administration Miscellaneous Medication 1 each 06/13/20 23:00 06/17/20 05:53 Lidocaine Patch Removal TOP 1 each 2300 PASCUAL Administration Ondansetron HCl 4 mg 06/05/20 00:25 06/17/20 07:57 Ondansetron Pf 4 Mg/2 Ml Vial IVP 4 mg Q6H PRN Administration Nausea/Vomiting use 1st Pantoprazole Sodium 40 mg 06/15/20 21:00 06/16/20 21:12 Pantoprazole 40 Mg Tab PO 40 mg HS PASCUAL Administration Sodium Chloride 10 ml 06/05/20 09:00 06/17/20 08:00 Flush - Normal Saline 10 Ml Syringe IVF 10 ml Q12HR PASCUAL Administration Sodium Chloride 10 ml 06/05/20 00:45 06/15/20 03:53 Flush - Normal Saline 10 Ml Syringe IVF 10 ml PRN PRN Administration Saline Flush Tramadol HCl 50 mg 06/16/20 10:43 06/16/20 21:11 Tramadol Hcl 50 Mg Tab PO 50 mg Q12H PRN Administration Moderate Pain (4-6) Hosp A/P - Plan - Exam Eye: PERRL ENT: normocephalic atraumatic Neck: supple, symmetric Heart: RRR, no murmur Respiratory: CTAB, no wheezes Gastrointestinal: soft, non-tender Extremities: no cyanosis, 1+ LE edema Extremities - other findings: RUE welling. LUE with wound vac in place Skin: normal turgor Neurological: cranial nerve grossly intact Musculoskeletal: normal tone Psychiatric: normal affect This is a 70 years old female who has significant past medical history as of ESRD, hypertension, combined heart failure was status post AICD, who was t vivi from [facility] for infected AV graft. She developed sepsis with septic shock, required emergent I&D. Hypotension - BP improved --Add Midrin, monitor BP Infected AV graft - s/p I&D --wound culture positive for MRSA. Cont Vanc on HD --Wound vac in place, cont local wound care. surgery is following --adjust pain regimen --updated pt's daughter MRSA bacteremia --cont IV abx, Vanc. s/p GENET 06/11, discussed with Dr. West GENET was negative for endocarditis --ID consulted, rpt BCx Sepsis with septic Shock - resolved --required vasopressors. 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 cont dialysis as per nephrology PAF with RVR on admission, required Cardizem gtt --rate controlled. consider resume BB when BP stable. Cont Eliquis as above CAD with history of PCI --cont statin. ASA/BB on hold - will consider resume when BP stablized Diabetes type 2 --cont Lantus, ISS Gout --stable Dyslipidemia --cont statin therapy Hypokalemia --replaced, follow BMP Acute hypoxic respiratory failure - resolved. Hx Colon Ca - s/p partial colectomy
[2020-06-17] MEDS: HYDROcodone/Acetaminophen 10/325 mg Tablet PO PRN (18:12)
[2020-06-17] MEDS ORDERED: Aluminum & Magnesium Hydroxide 60 ML, diphenhydrAMINE 150 MG, Lidocaine 2% Viscous Solu... SSW SCH (18:15)
[2020-06-17] MEDS: Atorvastatin Calcium 20 MG TAB PO SCH (21:08)
[2020-06-17] MEDS: Docusate 100 MG CAP PO SCH (21:09)
[2020-06-17] MEDS: Metoclopramide 10 MG/10 ML UDCUP PO SCH (21:09)
[2020-06-17] MEDS: Aluminum & Magnesium Hydroxide 60 ML, diphenhydrAMINE 150 MG, Lidocaine 2% Viscous Solu... SSW SCH (21:14)
[2020-06-18] MEDS: Lidocaine Patch Removal TOP SCH ×2 (00:21→23:40)
[2020-06-18 04:47] LABS: Anion Gap 20 mmol/L (10-20); BUN (Urea Nitrogen) 62 mg/dL (9.8-20.1); Calc. Creatinine Clearance 10 mL/min (70-130); Calcium 7.9 mg/dL (7.8-10.44); Carbon Dioxide 19 mmol/L (23-31); Chloride 98 mmol/L (98-107); Estimated GFR-MDRD 7; Glucose 171 mg/dL (83-110); Potassium 5.3 mmol/L (3.5-5.1); Sodium 132 mmol/L (136-145)
[2020-06-18] MEDS: HumaLOG 300 UNITS/3 ML VIAL SC PRN ×3 (06:25→21:16)
[2020-06-18] MEDS: Midodrine HCl 5 MG TAB PO SCH ×3 (07:37→21:19)
[2020-06-18] MEDS: Metoclopramide 10 MG/10 ML UDCUP PO SCH ×4 (08:28→21:18)
[2020-06-18] MEDS: Aluminum & Magnesium Hydroxide 60 ML, diphenhydrAMINE 150 MG, Lidocaine 2% Viscous Solu... SSW SCH ×4 (08:29→21:18)
[2020-06-18 10:05] LABS: Vancomycin, Random 14.1 ug/mL (See Comment)
[2020-06-18] MEDS ORDERED: Vancomycin HCl 750 MG in Sodium Chloride 0.9% 250 ML 250 ML IVPB SCH (10:30)
[2020-06-18] MEDS ORDERED: Vancomycin HCl 1.5 GM in Sodium Chloride 0.9% 250 ML 300 ML IVPB SCH (10:30)
[2020-06-18] MEDS ORDERED: Vancomycin 1 GM in Premix Bag 1 BAG IVPB SCH (10:30)
[2020-06-18] MEDS ORDERED: Vancomycin Sliding Scale 1 EACH FS ONE (10:30)
[2020-06-18] MEDS ORDERED: HOLD VANCOMYCIN FOR LEVEL >20 FS SCH (10:30)
[2020-06-18] MEDS ORDERED: Vancomycin HCl 1.25 GM in Sodium Chloride 0.9% 250 ML 250 ML IVPB SCH (10:30)
[2020-06-18] MEDS: DULoxetine 60 MG CAP PO SCH (11:58)
[2020-06-18] MEDS: Apixaban 5 MG TAB PO SCH ×2 (11:58→21:19)
[2020-06-18] MEDS: Insulin Glargine 10 UNITS in Pre-Filled Syringe 1 EACH SC SCH (11:59)
[2020-06-18] MEDS: Polyethylene Glycol 3350 17 GM Packet PO SCH (11:59)
[2020-06-18] MEDS: Docusate 100 MG CAP PO SCH ×2 (11:59→21:19)
[2020-06-18] MEDS: Lidocaine 5% Patch TD SCH (12:00)
[2020-06-18] MEDS: EPOETIN ALFA-EPBX (ESRD) 10,000 UNIT/ML VIAL IVP SCH (12:09)
[2020-06-18] MEDS: Gabapentin 300 MG CAP PO SCH (12:12)
[2020-06-18] MEDS ORDERED: Heparin 10,000 UNITS/ 10 ML VIAL ONE (12:13)
--- NOTE | 2020-06-18 12:27 | PRG ---
DATE OF SERVICE: 06/18/2020 SUBJECTIVE: Patient was seen and examined at bedside and overnight events noted. Patient denies any shortness of breath or chest pain or palpitation. No history of nausea or vomiting or diarrhea or fever or chills or cramps. OBJECTIVE: GENERAL: This is a well-built female, in no apparent distress. VITAL SIGNS: Temperature 98.2. Heart rate 75. Respiratory rate 16. Blood pressure 106/60. HEENT: Atraumatic, normocephalic. Oral mucosa is moist. NECK: Supple. CARDIOVASCULAR: S1, S2 heard. Rate and rhythm regular. RESPIRATORY: Clear to auscultation. GASTROINTESTINAL: Abdomen is soft. MUSCULOSKELETAL: No tenderness. No edema. DERMATOLOGIC: No skin rash. NEUROLOGIC: Alert and awake and oriented x3. No focal neurologic deficits. Moving all the extremities. PSYCHIATRIC: Mood and affect normal. LABORATORY DATA: Potassium 5.3, BUN is 62, and creatinine is 6.03. ASSESSMENT AND PLAN: 1. End-stage renal disease. Continue on hemodialysis as tolerated. 2. Edema. We will remove fluid. 3. Hypertension. 4. Anemia of chronic disease. 5. Hyperkalemia. We will have dialysis. Repeat blood cultures on dialysis catheter per ID recommendations and we will continue dialysis as tolerated. Not able to have much ultrafiltration due to hypertension. We will follow. Job ID: [id number]
--- NOTE | 2020-06-18 14:06 | PDOC.GSPN ---
Surgery Progress Note: Subj - Subjective Narrative: No new complaints. Blood pressure still a bit on the low side. Most recent blood cultures negative at 48 hours. Wound is clean and granulating. VAC was replaced. No new surgical recommendations. Dr. Flores is covering over the weekend; please call him if there are any surgical concerns. Otherwise I will see the patient if she is still here on Sunday. Surgery Progress Note: Obj - Vital signs Vital signs: Vital Signs - Most Recent Temp Pulse Resp BP Pulse Ox 98.6 F 77 18 108/72 94 L 06/18/20 11:55 06/18/20 11:55 06/18/20 11:55 06/18/20 11:55 06/18/20 11:55 Surgery Progress Note: Results - Labs Result Diagrams: 06/17/20 04:05 06/18/20 04:07 Lab results: Laboratory Results - last 24 hr 06/18/20 06/18/20 06/18/20 04:07 05:51 09:24 Sodium 132 L Potassium 5.3 H Chloride 98 Carbon Dioxide 19 L Anion Gap 20 BUN 62 H Creatinine 6.03 H Estimated GFR (MDRD) 7 Glucose 171 H POC Glucose 168 H Calcium 7.9 Random Vancomycin 14.1 06/18/20 11:48 Sodium Potassium Chloride Carbon Dioxide Anion Gap BUN Creatinine Estimated GFR (MDRD) Glucose POC Glucose 148 H Calcium Random Vancomycin
--- NOTE | 2020-06-18 19:37 | PDOC.HOSPP ---
- Subjective Subjective: Pt was seen examined at bedside. Patient stated her GI symptom is doing much better with Reglan. She also tolerated diet better with the Magic mouthwash. Her blood pressure still on the low side, she did not tolerate much dialysis today due to hypotension. Patient is still indecisive about rehab versus hospice. Palliative care is following. - Objective Vital Signs & Weight: Vital Signs (12 hours) Temp Pulse Resp BP Pulse Ox 06/18/20 16:00 98.4 F 81 16 101/59 L 94 L 06/18/20 11:55 98.6 F 77 18 108/72 94 L Weight Admit Weight 170 lb 3.136 oz Weight 169 lb 5.04 oz Most Recent Monitor Data Heart Rate from ECG 77 NIBP 116/55 NIBP BP-Mean 75 Respiration from ECG 24 SpO2 100 I&O: 06/17/20 06/18/20 06/19/20 06:59 06:59 06:59 Intake Total 1320 220 Output Total 1650 Balance -330 220 Result Diagrams: 06/17/20 04:05 06/18/20 04:07 Additional Labs: Accuchecks 06/18/20 06/18/20 06/18/20 16:51 11:48 05:51 POC Glucose 222 H 148 H 168 H 06/17/20 20:51 POC Glucose 169 H Radiology Reviewed by me: Yes EKG Reviewed by me: Yes Hospitalist ROS - Medication Medications: Active Medications Generic Name Dose Route Start Last Admin Trade Name Freq PRN Reason Stop Dose Admin Acetaminophen 650 mg 06/05/20 00:35 06/12/20 04:55 Acetaminophen 650 Mg/20.3 Ml Udcup PO 650 mg Q6H PRN Administration Fever > 101 or Mild Pain Hydrocodone Bitart/Acetaminophen 1 tab 06/14/20 17:52 06/17/20 18:12 Hydrocodone/Acetaminophen 10/325 Mg Tablet PO 1 tab Q4H PRN Administration Severe Pain (7-10) Apixaban 5 mg 06/08/20 21:00 06/18/20 11:58 Apixaban 5 Mg Tab PO 5 mg BID PASCUAL Administration Atorvastatin Calcium 20 mg 06/05/20 21:00 06/17/20 21:08 Atorvastatin Calcium 20 Mg Tab PO 20 mg HS PASCUAL Administration Al Hydroxide/Mg Hydroxide 60 0 ml 06/17/20 21:00 06/18/20 18:05 ml/ Diphenhydramine HCl 150 mg SSW 10 ml / Lidocaine HCl 60 ml/ ACHS PASCUAL Administration Nystatin 6,000,000 units Docusate Sodium 100 mg 06/17/20 21:00 06/18/20 11:59 Docusate 100 Mg Cap PO 100 mg BID PASCUAL Administration Duloxetine HCl 60 mg 06/05/20 09:00 06/18/20 11:58 Duloxetine 60 Mg Cap PO 60 mg DAILY PASCUAL Administration Epoetin Yrn-epbx 10,000 unit 06/18/20 11:00 06/18/20 12:09 Epoetin Yrn-Epbx (Esrd) 10,000 Unit/Ml Vial IVP 10,000 unit MoWeFr PASCUAL Administration Guaifenesin/Dextromethorphan 15 ml 06/05/20 00:25 06/11/20 18:22 Guaifenesin Dm 100-10/5 Ml Udcup PO 15 ml Q4H PRN Administration Cough Insulin Glargine 10 units/ 0.1 mls @ 0 mls/hr 06/05/20 09:00 06/18/20 11:59 Miscellaneous Medication SC 0.1 mls DAILY PASCUAL Administration Vancomycin HCl 25 mg/ Sodium 9.5 mls @ 0 mls/hr 06/09/20 11:15 06/09/20 11:26 Chloride 9.25 ml/ Heparin IVPB 9.5 mls Sodium (Porcine) 2,500 units/ WILLCALL PASCUAL Administration Syringe Vancomycin HCl 1 gm/ Device 200 mls @ 200 mls/hr 06/18/20 10:30 06/18/20 12:00 IVPB 200 mls WILLCALL PASCUAL Administration Insulin Human Lispro 0 units 06/05/20 00:30 06/18/20 18:32 Humalog 300 Units/3 Ml Vial SC 3 unit .MILD SLIDING SCALE PRN Administration Mild Correctional Scale Insulin Human Lispro 0 units 06/10/20 21:27 06/14/20 21:23 Humalog 300 Units/3 Ml Vial SC 2 unit .BEDTIME SLIDING SC PRN Administration Bedtime Correctional Scale Lidocaine 1 patch 06/13/20 11:00 06/18/20 12:00 Lidocaine 5% Patch TD 1 patch 1100 PASCUAL Administration Metoclopramide HCl 5 mg 06/17/20 21:00 06/18/20 18:05 Metoclopramide 10 Mg/10 Ml Udcup PO 5 mg ACHS PASCUAL Administration Midodrine 5 mg 06/16/20 21:00 06/18/20 16:02 Midodrine Hcl 5 Mg Tab PO 5 mg TID PASCUAL Administration Miscellaneous Medication 1 each 06/13/20 23:00 06/18/20 00:21 Lidocaine Patch Removal TOP 1 each 2300 PASCUAL Administration Ondansetron HCl 4 mg 06/05/20 00:25 06/17/20 07:57 Ondansetron Pf 4 Mg/2 Ml Vial IVP 4 mg Q6H PRN Administration Nausea/Vomiting use 1st Pantoprazole Sodium 40 mg 06/15/20 21:00 06/17/20 21:08 Pantoprazole 40 Mg Tab PO 40 mg HS PASCUAL Administration Polyethylene Glycol 17 gm 06/18/20 09:00 06/18/20 11:59 Polyethylene Glycol 3350 17 Gm Packet PO 17 gm DAILY PASCUAL Administration Sodium Chloride 10 ml 06/05/20 09:00 06/18/20 11:59 Flush - Normal Saline 10 Ml Syringe IVF 10 ml Q12HR PASCUAL Administration Sodium Chloride 10 ml 06/05/20 00:45 06/15/20 03:53 Flush - Normal Saline 10 Ml Syringe IVF 10 ml PRN PRN Administration Saline Flush Tramadol HCl 50 mg 06/16/20 10:43 06/16/20 21:11 Tramadol Hcl 50 Mg Tab PO 50 mg Q12H PRN Administration Moderate Pain (4-6) Hosp A/P - Plan - Exam Eye: PERRL ENT: normocephalic atraumatic Neck: supple, symmetric Heart: RRR, no murmur Respiratory: CTAB, no wheezes Gastrointestinal: soft, non-tender Extremities: no cyanosis, 1+ LE edema Extremities - other findings: RUE welling. LUE with wound vac in place Skin: normal turgor Neurological: cranial nerve grossly intact Musculoskeletal: normal tone Psychiatric: normal affect This is a 70 years old female who has significant past medical history as of ESRD, hypertension, combined heart failure was status post AICD, who was transfer from [facility] for infected AV graft. She developed sepsis with septic shock, required emergent I&D. Wound culture and BCx positive for MRSA, on IV Vanc sliding scale with dialysis. ID is following. Patient has been having problemd with hypotension during dialysis, and does not appear to be tolerated well. Patient is still indecisive about go home on hospice versus Rehab/SNF. Hypotension - BP improved --cont Midodrin, monitor BP Infected AV graft - s/p I&D --wound culture positive for MRSA. Cont Vanc on HD --Wound vac in place, cont local wound care. surgery is following --adjust pain regimen --updated pt's daughter MRSA bacteremia --cont IV abx, Vanc. s/p GENET 06/11, discussed with Dr. Childs GENET was negative for endocarditis --ID consulted, rpt BCx Sepsis with septic Shock - resolved --required vasopressors. 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 cont dialysis as per nephrology PAF with RVR on admission, required Cardizem gtt --rate controlled. consider resume BB when BP stable. Cont Eliquis as above CAD with history of PCI --cont statin. ASA/BB on hold - will consider resume when BP stablized Diabetes type 2 --cont Lantus, ISS Gout --stable Dyslipidemia --cont statin therapy Hypokalemia --replaced, follow BMP Acute hypoxic respiratory failure - resolved. Hx Colon Ca - s/p partial colectomy
[2020-06-18] MEDS: Atorvastatin Calcium 20 MG TAB PO SCH (21:19)
[2020-06-19] MEDS: HumaLOG 300 UNITS/3 ML VIAL SC PRN ×2 (06:44→18:33)
[2020-06-19] MEDS: Metoclopramide 10 MG/10 ML UDCUP PO SCH ×4 (10:43→21:39)
[2020-06-19] MEDS: Aluminum & Magnesium Hydroxide 60 ML, diphenhydrAMINE 150 MG, Lidocaine 2% Viscous Solu... SSW SCH ×4 (10:43→21:41)
[2020-06-19] MEDS: Gabapentin 100 MG CAP PO SCH (10:46)
[2020-06-19] MEDS: DULoxetine 60 MG CAP PO SCH (10:46)
[2020-06-19] MEDS: Docusate 100 MG CAP PO SCH ×2 (10:47→21:38)
[2020-06-19] MEDS: Insulin Glargine 10 UNITS in Pre-Filled Syringe 1 EACH SC SCH (10:47)
[2020-06-19] MEDS: Midodrine HCl 5 MG TAB PO SCH ×3 (10:47→21:38)
[2020-06-19] MEDS: Apixaban 5 MG TAB PO SCH ×2 (10:47→21:38)
[2020-06-19] MEDS: Lidocaine 5% Patch TD SCH (10:48)
[2020-06-19] MEDS: Polyethylene Glycol 3350 17 GM Packet PO SCH (10:48)
--- NOTE | 2020-06-19 11:22 | PDOC.HOSPP ---
- Subjective Encounter Date: 06/19/20 Encounter Time: 10:15 Subjective: no sob, says she is eating better has not ambulated but says she stood up with PT agrees to go into rehab/swing bed (not [facility] and another one) - Objective Vital Signs & Weight: Vital Signs (12 hours) Temp Pulse Resp BP Pulse Ox 06/19/20 04:00 97.2 F L 96 16 135/61 94 L Weight Admit Weight 170 lb 3.136 oz Weight 164 lb 3.91 oz Most Recent Monitor Data Heart Rate from ECG 77 NIBP 116/55 NIBP BP-Mean 75 Respiration from ECG 24 SpO2 100 I&O: 06/18/20 06/19/20 06/20/20 06:59 06:59 06:59 Intake Total 220 920 Output Total 0 Balance 220 920 Result Diagrams: 06/17/20 04:05 06/18/20 04:07 Additional Labs: Accuchecks 06/19/20 06/19/20 06/18/20 10:58 05:55 21:13 POC Glucose 199 H 199 H 212 H 06/18/20 06/18/20 16:51 11:48 POC Glucose 222 H 148 H Hospitalist ROS - Medication Medications: Active Medications Generic Name Dose Route Start Last Admin Trade Name Freq PRN Reason Stop Dose Admin Acetaminophen 650 mg 06/05/20 00:35 06/12/20 04:55 Acetaminophen 650 Mg/20.3 Ml Udcup PO 650 mg Q6H PRN Administration Fever > 101 or Mild Pain Hydrocodone Bitart/Acetaminophen 1 tab 06/14/20 17:52 06/17/20 18:12 Hydrocodone/Acetaminophen 10/325 Mg Tablet PO 1 tab Q4H PRN Administration Severe Pain (7-10) Apixaban 5 mg 06/08/20 21:00 06/19/20 10:47 Apixaban 5 Mg Tab PO 5 mg BID PASCUAL Administration Atorvastatin Calcium 20 mg 06/05/20 21:00 06/18/20 21:19 Atorvastatin Calcium 20 Mg Tab PO 20 mg HS PASCUAL Administration Al Hydroxide/Mg Hydroxide 60 0 ml 06/17/20 21:00 06/19/20 10:47 ml/ Diphenhydramine HCl 150 mg SSW 10 ml / Lidocaine HCl 60 ml/ ACHS PASCUAL Administration Nystatin 6,000,000 units Docusate Sodium 100 mg 10/01/20 21:00 06/19/20 10:47 Docusate 100 Mg Cap PO 100 mg BID PASCUAL Administration Duloxetine HCl 60 mg 06/05/20 09:00 06/19/20 10:46 Duloxetine 60 Mg Cap PO 60 mg DAILY PASCUAL Administration Epoetin Yrn-epbx 10,000 unit 06/18/20 11:00 06/18/20 12:09 Epoetin Yrn-Epbx (Esrd) 10,000 Unit/Ml Vial IVP 10,000 unit MoWeFr PASCUAL Administration Gabapentin 200 mg 06/19/20 09:00 06/19/20 10:46 Gabapentin 100 Mg Cap PO 200 mg DAILY PASCUAL Administration Guaifenesin/Dextromethorphan 15 ml 06/05/20 00:25 06/11/20 18:22 Guaifenesin Dm 100-10/5 Ml Udcup PO 15 ml Q4H PRN Administration Cough Insulin Glargine 10 units/ 0.1 mls @ 0 mls/hr 06/05/20 09:00 06/19/20 10:47 Miscellaneous Medication SC 0.1 mls DAILY PASCUAL Administration Vancomycin HCl 25 mg/ Sodium 9.5 mls @ 0 mls/hr 06/09/20 11:15 06/09/20 11:26 Chloride 9.25 ml/ Heparin IVPB 9.5 mls Sodium (Porcine) 2,500 units/ WILLCALL PASCUAL Administration Syringe Vancomycin HCl 1 gm/ Device 200 mls @ 200 mls/hr 06/18/20 10:30 06/18/20 12:00 IVPB 200 mls WILLCALL PASCUAL Administration Insulin Human Lispro 0 units 06/05/20 00:30 06/19/20 06:44 Humalog 300 Units/3 Ml Vial SC 2 unit .MILD SLIDING SCALE PRN Administration Mild Correctional Scale Insulin Human Lispro 0 units 06/10/20 21:27 06/18/20 21:16 Humalog 300 Units/3 Ml Vial SC 2 unit .BEDTIME SLIDING SC PRN Administration Bedtime Correctional Scale Lidocaine 1 patch 06/13/20 11:00 06/19/20 10:48 Lidocaine 5% Patch TD 1 patch 1100 PASCUAL Administration Metoclopramide HCl 5 mg 06/17/20 21:00 06/19/20 10:46 Metoclopramide 10 Mg/10 Ml Udcup PO 5 mg ACHS PASCUAL Administration Midodrine 5 mg 06/16/20 21:00 06/19/20 10:47 Midodrine Hcl 5 Mg Tab PO 5 mg TID PASCUAL Administration Miscellaneous Medication 1 each 06/13/20 23:00 06/18/20 23:40 Lidocaine Patch Removal TOP 1 each 2300 PASCUAL Administration Ondansetron HCl 4 mg 06/05/20 00:25 06/17/20 07:57 Ondansetron Pf 4 Mg/2 Ml Vial IVP 4 mg Q6H PRN Administration Nausea/Vomiting use 1st Pantoprazole Sodium 40 mg 06/15/20 21:00 06/18/20 21:19 Pantoprazole 40 Mg Tab PO 40 mg HS PASCUAL Administration Polyethylene Glycol 17 gm 06/18/20 09:00 06/19/20 10:48 Polyethylene Glycol 3350 17 Gm Packet PO Not Given DAILY PASCUAL Sodium Chloride 10 ml 06/05/20 09:00 06/19/20 10:48 Flush - Normal Saline 10 Ml Syringe IVF 10 ml Q12HR PASCUAL Administration Sodium Chloride 10 ml 06/05/20 00:45 06/15/20 03:53 Flush - Normal Saline 10 Ml Syringe IVF 10 ml PRN PRN Administration Saline Flush Tramadol HCl 50 mg 06/16/20 10:43 06/16/20 21:11 Tramadol Hcl 50 Mg Tab PO 50 mg Q12H PRN Administration Moderate Pain (4-6) - Exam General Appearance: awake alert, ill appearing Eye: PERRL, anicteric sclera ENT: no oropharyngeal lesions, moist mucosa Neck: supple, no JVD Heart: RRR, no murmur Respiratory: no wheezes, no rales, rhonchi Gastrointestinal: soft, non-tender, non-distended, normal bowel sounds Extremities - other findings: right UE edema++, left in dressing Neurological: cranial nerve grossly intact, no focal deficits Psychiatric: A&O x 3 Hosp A/P (1) MRSA bacteremia Code(s): R78.81 - BACTEREMIA; B95.62 - METHICILLIN RESIS STAPH INFCT CAUSING DISEASES CLASSD ELSWHR Status: Acute (2) Deep vein thrombosis, upper right extremity Code(s): I82.621 - ACUTE EMBOLISM AND THROMBOSIS OF DEEP VEINS OF R UP EXTREM Status: Acute (3) End-stage renal disease on hemodialysis Code(s): N18.6 - END STAGE RENAL DISEASE; Z99.2 - DEPENDENCE ON RENAL DIALYSIS Status: Chronic (4) Acute on chronic diastolic (congestive) heart failure Code(s): I50.33 - ACUTE ON CHRONIC DIASTOLIC (CONGESTIVE) HEART FAILURE Status: Acute (5) Anxiety and depression Code(s): F41.9 - ANXIETY DISORDER, UNSPECIFIED; F32.9 - MAJOR DEPRESSIVE DISORDER, SINGLE EPISODE, UNSPECIFIED Status: Chronic (6) CAD (coronary artery disease) Code(s): I25.10 - ATHSCL HEART DISEASE OF [place] CORONARY ARTERY W/O ANG PCTRS Status: Chronic Qualifiers: Coronary Disease-Associated Artery/Lesion type: [place] artery [place] vs. transplanted heart: [place] heart (7) Diabetes type 2, controlled Code(s): E11.9 - TYPE 2 DIABETES MELLITUS WITHOUT COMPLICATIONS Status: Chronic Qualifiers: Diabetes mellitus termination clerk insulin use: with mcfp use Diabetes mellitus complication status: with kidney complications Diabetes mellitus complication detail: with chronic kidney disease Chronic kidney disease stage: on chronic dialysis Qualified Code(s): E11.22 - Type 2 diabetes mellitus with diabetic chronic kidney disease; N18.6 - End stage renal disease; Z79.4 - [place] (current) use of insulin; Z99.2 - Dependence on renal dialysis (8) Dyslipidemia Code(s): E78.5 - HYPERLIPIDEMIA, UNSPECIFIED Status: Chronic (9) Gout Code(s): M10.9 - GOUT, UNSPECIFIED Status: Chronic Qualifiers: Gout site: unspecified site Chronicity: chronic Presence of tophus: without tophus (10) Hypertension Code(s): I10 - ESSENTIAL (PRIMARY) HYPERTENSION Status: Chronic Qualifiers: Hypertension type: essential hypertension Qualified Code(s): I10 - Essent ial (primary) hypertension (11) Infection of AV graft for dialysis Code(s): T82.7XXA - INFECT/INFLM REACT D/T OTH CARDI/VASC DEV/IMPLNT/GRFT, INIT Status: Acute - Plan s/p extraction of av graft repeat blood cs on 06/16, 06/18 are -ve is on vanc with HD eliquis for dvt, lipitor, cymbalta, neurontin, lantus will need swing/rehab for dc plan, has deconditioning ef of around 30%, has aicd PT to mobilize as tolerated, right UE to be elevated over pillows
--- NOTE | 2020-06-19 11:59 | PRG ---
DATE OF SERVICE: 06/19/2020 SUBJECTIVE: Patient was seen and examined at bedside and overnight events noted. Patient denies any shortness of breath or chest pain or palpitation. No history of nausea or vomiting or diarrhea or fever or chills or cramps. OBJECTIVE: GENERAL: This is a well-built female, in no apparent distress. VITAL SIGNS: Temperature 97.6. Heart rate 105. Respiratory rate 18. Blood pressure 133/84. HEENT: Atraumatic, normocephalic. Oral mucosa is moist. NECK: Supple. CARDIOVASCULAR: S1, S2 heard. Rate and rhythm regular. RESPIRATORY: Clear to auscultation. GASTROINTESTINAL: Abdomen is soft. MUSCULOSKELETAL: No tenderness. No edema. DERMATOLOGIC: No skin rash. NEUROLOGIC: Alert and awake and oriented x3. No focal neurologic deficits. Moving all the extremities. PSYCHIATRIC: Mood and affect normal. LABORATORY DATA: Not done today. ASSESSMENT AND PLAN: 1. End-stage renal disease. Continue dialysis on Sunday, Sunday, and Sunday. 2. Edema. 3. Hypertension. 4. Anemia. 5. Hyperkalemia. Limit potassium intake. Continue dialysis on Sunday, Sunday, and Sunday. Job ID: [id number]
[2020-06-19] MEDS ORDERED: Heparin 10,000 UNITS/ 10 ML VIAL ONE (12:20)
[2020-06-19] MEDS: Atorvastatin Calcium 20 MG TAB PO SCH (21:38)
[2020-06-20] MEDS: Ondansetron PF 4 MG/2 ML Vial IVP PRN (00:45)
[2020-06-20] MEDS: HYDROcodone/Acetaminophen 10/325 mg Tablet PO PRN ×3 (00:56→21:23)
[2020-06-20] MEDS: Lidocaine Patch Removal TOP SCH (01:54)
[2020-06-20 05:30] LABS: #Eosinphils 0.1 thou/uL (0.0-0.7); #Lymphocytes 0.4 thou/uL (1.20-3.40); #Monocytes 0.8 thou/uL (0.11-0.59); #Neutrophils 4.9 thou/uL (1.40-6.50); %Basophils 0.4 % (0.0-1.0); %Eosinophils 0.8 % (0.0-10.0); %Lymphocytes 7.1 % (21.0-51.0); %Monocytes 13.5 % (0.0-10.0); %Neutrophils 78.2 % (42.0-75.0); Hemoglobin 9.8 g/dL (12.0-16.0); Mean Platelet Volume 10.4 fL (7.4-10.4); Platelet Count 123 thou/uL (130-400); RBC Distribution Width 13.6 % (11.5-14.5); Red Blood Cell (RBC) Count 2.79 mill/uL (4.20-5.40); White Blood Cell (WBC) Count 6.2 thou/uL (4.8-10.8)
[2020-06-20 05:52] LABS: Anion Gap 20 mmol/L (10-20); BUN (Urea Nitrogen) 46 mg/dL (9.8-20.1); Calc. Creatinine Clearance 11 mL/min (70-130); Calcium 7.7 mg/dL (7.8-10.44); Carbon Dioxide 17 mmol/L (23-31); Chloride 97 mmol/L (98-107); Estimated GFR-MDRD 8; Glucose 152 mg/dL (83-110); Magnesium 1.8 mg/dL (1.6-2.6); Potassium 4.9 mmol/L (3.5-5.1); Sodium 129 mmol/L (136-145)
[2020-06-20] MEDS: HumaLOG 300 UNITS/3 ML VIAL SC PRN ×2 (06:15→11:46)
[2020-06-20] MEDS: DULoxetine 60 MG CAP PO SCH (09:13)
[2020-06-20] MEDS: Apixaban 5 MG TAB PO SCH ×2 (09:13→21:21)
[2020-06-20] MEDS: Docusate 100 MG CAP PO SCH ×2 (09:13→21:22)
[2020-06-20] MEDS: Polyethylene Glycol 3350 17 GM Packet PO SCH (09:13)
[2020-06-20] MEDS: Metoclopramide 10 MG/10 ML UDCUP PO SCH ×4 (09:14→21:22)
[2020-06-20] MEDS: Midodrine HCl 5 MG TAB PO SCH ×3 (09:14→21:22)
[2020-06-20] MEDS: Gabapentin 100 MG CAP PO SCH (09:19)
[2020-06-20] MEDS: Aluminum & Magnesium Hydroxide 60 ML, diphenhydrAMINE 150 MG, Lidocaine 2% Viscous Solu... SSW SCH ×5 (09:48→21:23)
[2020-06-20] MEDS: Insulin Glargine 10 UNITS in Pre-Filled Syringe 1 EACH SC SCH (09:56)
--- NOTE | 2020-06-20 10:58 | PDOC.HOSPP ---
- Subjective Encounter Date: 06/20/20 Encounter Time: 08:30 Subjective: no sob or chest pain or nausea says she is working with PT, has not ambulated so far encouraged oral intake - Objective Vital Signs & Weight: Vital Signs (12 hours) Temp Pulse Resp BP Pulse Ox 06/20/20 08:30 97.6 F 97 20 108/65 93 L 06/20/20 04:00 98.0 F 90 16 104/65 95 Weight Admit Weight 170 lb 3.136 oz Weight 177 lb 0.499 oz Most Recent Monitor Data Heart Rate from ECG 77 NIBP 116/55 NIBP BP-Mean 75 Respiration from ECG 24 SpO2 100 I&O: 06/19/20 06/20/20 06/21/20 06:59 06:59 06:59 Intake Total 920 Output Total 0 Balance 920 Result Diagrams: 06/20/20 04:38 06/20/20 04:38 Additional Labs: Accuchecks 06/20/20 06/19/20 06/19/20 06:09 20:55 17:50 POC Glucose 163 H 135 H 152 H 06/19/20 10:58 POC Glucose 199 H Hospitalist ROS - Medication Medications: Active Medications Generic Name Dose Route Start Last Admin Trade Name Freq PRN Reason Stop Dose Admin Acetaminophen 650 mg 06/05/20 00:35 06/12/20 04:55 Acetaminophen 650 Mg/20.3 Ml Udcup PO 650 mg Q6H PRN Administration Fever > 101 or Mild Pain Hydrocodone Bitart/Acetaminophen 1 tab 06/14/20 17:52 06/20/20 00:56 Hydrocodone/Acetaminophen 10/325 Mg Tablet PO 1 tab Q4H PRN Administration Severe Pain (7-10) Apixaban 5 mg 06/08/20 21:00 06/20/20 09:13 Apixaban 5 Mg Tab PO 5 mg BID PASCUAL Administration Atorvastatin Calcium 20 mg 06/05/20 21:00 06/19/20 21:38 Atorvastatin Calcium 20 Mg Tab PO 20 mg HS PASCUAL Administration Al Hydroxide/Mg Hydroxide 60 0 ml 06/17/20 21:00 06/20/20 09:48 ml/ Diphenhydramine HCl 150 mg SSW Not Given / Lidocaine HCl 60 ml/ ACHS PASCUAL Nystatin 6,000,000 units Docusate Sodium 100 mg 06/17/20 21:00 06/20/20 09:13 Docusate 100 Mg Cap PO 100 mg BID PASCUAL Administration Duloxetine HCl 60 mg 06/05/20 09:00 06/20/20 09:13 Duloxetine 60 Mg Cap PO 60 mg DAILY PASCUAL Administration Epoetin Yrn-epbx 10,000 unit 06/18/20 11:00 06/18/20 12:09 Epoetin Yrn-Epbx (Esrd) 10,000 Unit/Ml Vial IVP 10,000 unit MoWeFr PASCUAL Administration Gabapentin 200 mg 06/19/20 09:00 06/20/20 09:19 Gabapentin 100 Mg Cap PO 200 mg DAILY PASCUAL Administration Guaifenesin/Dextromethorphan 15 ml 06/05/20 00:25 06/11/20 18:22 Guaifenesin Dm 100-10/5 Ml Udcup PO 15 ml Q4H PRN Administration Cough Insulin Glargine 10 units/ 0.1 mls @ 0 mls/hr 06/05/20 09:00 06/20/20 09:56 Miscellaneous Medication SC 0.1 mls DAILY PASCUAL Administration Vancomycin HCl 1 gm/ Device 200 mls @ 200 mls/hr 06/18/20 10:30 06/18/20 12:00 IVPB 200 mls WILLCALL PASCUAL Administration Insulin Human Lispro 0 units 06/05/20 00:30 06/20/20 06:15 Humalog 300 Units/3 Ml Vial SC 2 unit .MILD SLIDING SCALE PRN Administration Mild Correctional Scale Insulin Human Lispro 0 units 06/10/20 21:27 06/18/20 21:16 Humalog 300 Units/3 Ml Vial SC 2 unit .BEDTIME SLIDING SC PRN Administration Bedtime Correctional Scale Lidocaine 1 patch 06/13/20 11:00 06/19/20 10:48 Lidocaine 5% Patch TD 1 patch 1100 PASCUAL Administration Metoclopramide HCl 5 mg 06/17/20 21:00 06/20/20 09:14 Metoclopramide 10 Mg/10 Ml Udcup PO 5 mg ACHS PASCUAL Administration Midodrine 5 mg 06/16/20 21:00 06/20/20 09:14 Midodrine Hcl 5 Mg Tab PO 5 mg TID PASCUAL Administration Miscellaneous Medication 1 each 06/13/20 23:00 06/20/20 01:54 Lidocaine Patch Removal TOP 1 each 2300 PASCUAL Administration Ondansetron HCl 4 mg 06/05/20 00:25 06/20/20 00:45 Ondansetron Pf 4 Mg/2 Ml Vial IVP 4 mg Q6H PRN Administration Nausea/Vomiting use 1st Pantoprazole Sodium 40 mg 06/15/20 21:00 06/19/20 21:38 Pantoprazole 40 Mg Tab PO 40 mg HS PASCUAL Administration Polyethylene Glycol 17 gm 06/18/20 09:00 06/20/20 09:13 Polyethylene Glycol 3350 17 Gm Packet PO 17 gm DAILY PASCUAL Administration Sodium Chloride 10 ml 06/05/20 09:00 06/20/20 09:54 Flush - Normal Saline 10 Ml Syringe IVF 10 ml Q12HR PASCUAL Administration Sodium Chloride 10 ml 06/05/20 00:45 06/20/20 00:47 Flush - Normal Saline 10 Ml Syringe IVF 10 ml PRN PRN Administration Saline Flush Tramadol HCl 50 mg 06/16/20 10:43 06/16/20 21:11 Tramadol Hcl 50 Mg Tab PO 50 mg Q12H PRN Administration Moderate Pain (4-6) - Exam General Appearance: awake alert Eye: PERRL, anicteric sclera ENT: no oropharyngeal lesions, moist mucosa Neck: supple, no JVD Heart: RRR, no murmur Respiratory: no wheezes, no rales Gastrointestinal: soft, non-tender, non-distended, normal bowel sounds Extremities: no cyanosis, 1+ LE edema Neurological: cranial nerve grossly intact, no focal deficits Psychiatric: A&O x 3 Hosp A/P (1) MRSA bacteremia Code(s): R78.81 - BACTEREMIA; B95.62 - METHICILLIN RESIS STAPH INFCT CAUSING DISEASES CLASSD ELSWHR Status: Acute (2) Deep vein thrombosis, upper right extremity Code(s): I82.621 - ACUTE EMBOLISM AND THROMBOSIS OF DEEP VEINS OF R UP EXTREM Status: Acute (3) End-stage renal disease on hemodialysis Code(s): N18.6 - END STAGE RENAL DISEASE; Z99.2 - DEPENDENCE ON RENAL DIALYSIS Status: Chronic (4) Acute on chronic diastolic (congestive) heart failure Code(s): I50.33 - ACUTE ON CHRONIC DIASTOLIC (CONGESTIVE) HEART FAILURE Status: Acute (5) Anxiety and depression Code(s): F41.9 - ANXIETY DISORDER, UNSPECIFIED; F32.9 - MAJOR DEPRESSIVE DISORDER, SINGLE EPISODE, UNSPECIFIED Status: Chronic (6) CAD (coronary artery disease) Code(s): I25.10 - ATHSCL HEART DISEASE OF [place] CORONARY ARTERY W/O ANG PCTRS Status: Chronic Qualifiers: Coronary Disease-Associated Artery/Lesion type: [place] artery [place] vs. transplanted heart: [place] heart (7) Diabetes type 2, controlled Code(s): E11.9 - TYPE 2 DIABETES MELLITUS WITHOUT COMPLICATIONS Status: Chronic Qualifiers: Diabetes mellitus terminal gauger insulin use: with terminal gauger use Diabetes mellitus complication status: with kidney complications Diabetes mellitus complication detail: with chronic kidney disease Chronic kidney disease stage: on chronic dialysis Qualified Code(s): E11.22 - Type 2 diabetes mellitus with diabetic chronic kidney disease; N18.6 - End stage renal disease; Z79.4 - nursing home (current) use of insulin; Z99.2 - Dependence on renal dialysis (8) Dyslipidemia Code(s): E78.5 - HYPERLIPIDEMIA, UNSPECIFIED Status: Chronic (9) Gout Code(s): M10.9 - GOUT, UNSPECIFIED Status: Chronic Qualifiers: Gout site: unspecified site Chronicity: chronic Presence of tophus: without tophus (10) Hypertension Code(s): I10 - ESSENTIAL (PRIMARY) HYPERTENSION Status: Chronic Qualifiers: Hypertension type: essential hypertension Qualified Code(s): I10 - Essential (primary) hypertension (11) Infection of AV graft for dialysis Code(s): T82.7XXA - INFECT/INFLM REACT D/T OTH CARDI/VASC DEV/IMPLNT/GRFT, INIT Status: Acute - Plan s/p extraction of av graft repeat blood cs on 06/16, 06/18 are -ve is on vanc with HD eliquis for dvt, lipitor, cymbalta, neurontin, lantus will need swing/rehab for dc plan, has severe deconditioning ef of around 30%, has aicd PT to mobilize as tolerated, right UE to be elevated over pillows encourage po intake await placement
[2020-06-20] MEDS: Lidocaine 5% Patch TD SCH (11:22)
--- NOTE | 2020-06-20 13:15 | PRG ---
DATE OF SERVICE: 06/20/2020 SUBJECTIVE: Patient was seen and examined at bedside and overnight events noted. Patient denies any shortness of breath or chest pain or palpitation. No history of nausea or vomiting or diarrhea or fever or chills or cramps. OBJECTIVE: GENERAL: This is a well-built female, in no apparent distress. VITAL SIGNS: Temperature 97.7. Heart Rate 104. Respiratory rate 20. Blood pressure 106/65. HEENT: Atraumatic, normocephalic. Oral mucosa is moist. NECK: Supple. CARDIOVASCULAR: S1, S2 heard. Rate and rhythm regular. RESPIRATORY: Clear to auscultation. GASTROINTESTINAL: Abdomen is soft. MUSCULOSKELETAL: No tenderness. 2+ edema. DERMATOLOGIC: No skin rash. NEUROLOGIC: Alert and awake and oriented x3. No focal neurologic deficits. Moving all the extremities. PSYCHIATRIC: Mood and affect normal. LABORATORY DATA: Potassium 4.9, sodium 129, BUN 46, and creatinine is 5.4. ASSESSMENT AND PLAN: 1. End-stage renal disease. We will have an extra dialysis today, plan for 2 hours especially the patient is getting fluid overload getting hyponatremia. 2. Edema, we will remove fluid with dialysis. Plan is to have ultrafiltration only today. 3. History of hypertension. 4. Anemia of chronic disease. 5. Hyperkalemia. Plan to have extra session, 2 hours of dialysis today for fluid removal if tolerated and then continue dialysis Sunday, Sunday, and Sunday. Fluid removal has been difficult lately with dialysis. Job ID: [id number]
[2020-06-20] MEDS ORDERED: Albumin 25% 25 GM/100 ML BOT IVPB SCH (16:45)
[2020-06-20] MEDS ORDERED: VANCOMYCIN HCL IVPB SCH (18:00)
[2020-06-20] MEDS ORDERED: SODIUM CHLORIDE IVPB SCH (18:00)
[2020-06-20] MEDS ORDERED: [UNRECOGNIZED DRUG - OTHER] IVPB SCH (18:00)
[2020-06-20] MEDS: Atorvastatin Calcium 20 MG TAB PO SCH (21:21)
[2020-06-21] MEDS: Lidocaine Patch Removal TOP SCH ×2 (00:27→23:35)
[2020-06-21] MEDS: HYDROcodone/Acetaminophen 10/325 mg Tablet PO PRN (01:14)
[2020-06-21] MEDS: Metoclopramide 10 MG/10 ML UDCUP PO SCH ×4 (07:18→21:09)
[2020-06-21] MEDS: Gabapentin 100 MG CAP PO SCH (07:19)
[2020-06-21] MEDS: Apixaban 5 MG TAB PO SCH ×2 (07:19→21:09)
[2020-06-21] MEDS: Midodrine HCl 5 MG TAB PO SCH ×3 (07:19→21:09)
[2020-06-21] MEDS: DULoxetine 60 MG CAP PO SCH (07:19)
[2020-06-21] MEDS: Aluminum & Magnesium Hydroxide 60 ML, diphenhydrAMINE 150 MG, Lidocaine 2% Viscous Solu... SSW SCH ×4 (07:22→21:35)
[2020-06-21] MEDS: Docusate 100 MG CAP PO SCH ×2 (08:00→21:09)
[2020-06-21] MEDS: Polyethylene Glycol 3350 17 GM Packet PO SCH (08:00)
[2020-06-21 09:07] LABS: Vancomycin, Random 16.5 ug/mL (See Comment)
[2020-06-21] MEDS: Acetaminophen 650 MG/20.3 ML UDCUP PO PRN (10:37)
--- NOTE | 2020-06-21 11:36 | PRG ---
DATE OF SERVICE: 06/21/2020 SUBJECTIVE: This morning, she is being dialyzed. OBJECTIVE: VITAL SIGNS: Temperature 97 respirations 18, sats 92% on room air, blood pressure . GENERAL: She denies any difficulty breathing. CHEST: No wheezing. No crackles. CARDIAC: Normal S1, S2. No gallops. ABDOMEN: No masses. ASSESSMENT AND PLAN: Renal failure, on dialysis; methicillin-resistant Staphylococcus aureus sepsis; respiratory failure, stable. Continue antibiotic as per Infectious Disease. Pulmonary is going to follow at a distance. Call if needed. Job ID: [id number]
--- NOTE | 2020-06-21 11:43 | PDOC.HOSPP ---
- Subjective Encounter Date: 06/21/20 Encounter Time: 10:00 Subjective: is getting HD, no chest pain or sob - Objective Vital Signs & Weight: Vital Signs (12 hours) Temp Pulse Resp BP Pulse Ox 06/21/20 07:38 97.5 F L 88 18 115/66 98 06/21/20 04:00 97.5 F L 88 14 131/58 L 93 L 06/21/20 00:00 103/61 Weight Admit Weight 170 lb 3.136 oz Weight 177 lb 0.499 oz Most Recent Monitor Data Heart Rate from ECG 77 NIBP 116/55 NIBP BP-Mean 75 Respiration from ECG 24 SpO2 100 I&O: 06/20/20 06/21/20 06/22/20 06:59 06:59 06:59 Intake Total 320 Balance 320 Result Diagrams: 06/20/20 04:38 06/20/20 04:38 Additional Labs: Accuchecks 06/21/20 06/20/20 06/20/20 06:08 20:37 17:38 POC Glucose 120 H 123 H 125 H 06/20/20 10:48 POC Glucose 166 H Hospitalist ROS - Medication Medications: Active Medications Generic Name Dose Route Start Last Admin Trade Name Freq PRN Reason Stop Dose Admin Acetaminophen 650 mg 06/05/20 00:35 06/21/20 10:37 Acetaminophen 650 Mg/20.3 Ml Udcup PO 650 mg Q6H PRN Administration Fever > 101 or Mild Pain Hydrocodone Bitart/Acetaminophen 1 tab 06/14/20 17:52 06/21/20 01:14 Hydrocodone/Acetaminophen 10/325 Mg Tablet PO 1 tab Q4H PRN Administration Severe Pain (7-10) Apixaban 5 mg 06/08/20 21:00 06/21/20 07:19 Apixaban 5 Mg Tab PO 5 mg BID PASCUAL Administration Atorvastatin Calcium 20 mg 06/05/20 21:00 06/20/20 21:21 Atorvastatin Calcium 20 Mg Tab PO 20 mg HS PASCUAL Administration Al Hydroxide/Mg Hydroxide 60 0 ml 06/17/20 21:00 06/21/20 07:22 ml/ Diphenhydramine HCl 150 mg SSW 60 ml / Lidocaine HCl 60 ml/ ACHS PASCUAL Administration Nystatin 6,000,000 units Docusate Sodium 100 mg 06/17/20 21:00 06/21/20 08:00 Docusate 100 Mg Cap PO Not Given BID PASCUAL Duloxetine HCl 60 mg 06/05/20 09:00 06/21/20 07:19 Duloxetine 60 Mg Cap PO 60 mg DAILY PASCUAL Administration Epoetin Yrn-epbx 10,000 unit 06/18/20 11:00 06/18/20 12:09 Epoetin Yrn-Epbx (Esrd) 10,000 Unit/Ml Vial IVP 10,000 unit MoWeFr PASCUAL Administration Gabapentin 200 mg 06/19/20 09:00 06/21/20 07:19 Gabapentin 100 Mg Cap PO 200 mg DAILY PASCUAL Administration Guaifenesin/Dextromethorphan 15 ml 06/05/20 00:25 06/11/20 18:22 Guaifenesin Dm 100-10/5 Ml Udcup PO 15 ml Q4H PRN Administration Cough Insulin Glargine 10 units/ 0.1 mls @ 0 mls/hr 06/05/20 09:00 06/20/20 09:56 Miscellaneous Medication SC 0.1 mls DAILY PASCUAL Administration Vancomycin HCl 1 gm/ Device 200 mls @ 200 mls/hr 06/18/20 10:30 06/18/20 12:00 IVPB 200 mls WILLCALL PASCUAL Administration Vancomycin HCl 750 mg/ Sodium 250 mls @ 250 mls/hr 06/18/20 10:30 06/21/20 10:15 Chloride IVPB 250 mls WILLCALL PASCUAL Administration Insulin Human Lispro 0 units 06/05/20 00:30 06/20/20 11:46 Humalog 300 Units/3 Ml Vial SC 2 unit .MILD SLIDING SCALE PRN Administration Mild Correctional Scale Insulin Human Lispro 0 units 06/10/20 21:27 06/18/20 21:16 Humalog 300 Units/3 Ml Vial SC 2 unit .BEDTIME SLIDING SC PRN Administration Bedtime Correctional Scale Lidocaine 1 patch 06/13/20 11:00 06/20/20 11:22 Lidocaine 5% Patch TD 1 patch 1100 PASCUAL Administration Metoclopramide HCl 5 mg 06/17/20 21:00 06/21/20 07:18 Metoclopramide 10 Mg/10 Ml Udcup PO 5 mg ACHS PASCUAL Administration Midodrine 5 mg 06/16/20 21:00 06/21/20 07:19 Midodrine Hcl 5 Mg Tab PO 5 mg TID PASCUAL Administration Miscellaneous Medication 1 each 06/13/20 23:00 06/21/20 00:27 Lidocaine Patch Removal TOP 1 each 2300 PASCUAL Administration Ondansetron HCl 4 mg 06/05/20 00:25 06/20/20 00:45 Ondansetron Pf 4 Mg/2 Ml Vial IVP 4 mg Q6H PRN Administration Nausea/Vomiting use 1st Pantoprazole Sodium 40 mg 06/15/20 21:00 06/20/20 21:23 Pantoprazole 40 Mg Tab PO 40 mg HS PASCUAL Administration Polyethylene Glycol 17 gm 06/18/20 09:00 06/21/20 08:00 Polyethylene Glycol 3350 17 Gm Packet PO Not Given DAILY PASCUAL Sodium Chloride 10 ml 06/05/20 09:00 06/20/20 21:23 Flush - Normal Saline 10 Ml Syringe IVF 10 ml Q12HR PASCUAL Administration Sodium Chloride 10 ml 06/05/20 00:45 06/20/20 00:47 Flush - Normal Saline 10 Ml Syringe IVF 10 ml PRN PRN Administration Saline Flush Tramadol HCl 50 mg 06/16/20 10:43 06/16/20 21:11 Tramadol Hcl 50 Mg Tab PO 50 mg Q12H PRN Administration Moderate Pain (4-6) - Exam General Appearance: awake alert Eye: PERRL, anicteric sclera ENT: no oropharyngeal lesions, moist mucosa Neck: supple, no JVD Heart: RRR, no murmur Respiratory: no wheezes, no rales Gastrointestinal: soft, non-tender, non-distended, normal bowel sounds Extremities - other findings: right UE edema Neurological: cranial nerve grossly intact, no focal deficits Psychiatric: A&O x 3 Hosp A/P (1) MRSA bacteremia Code(s): R78.81 - BACTEREMIA; B95.62 - METHICILLIN RESIS STAPH INFCT CAUSING DISEASES CLASSD ELSWHR Status: Acute (2) Deep vein thrombosis, upper right extremity Code(s): I82.621 - ACUTE EMBOLISM AND THROMBOSIS OF DEEP VEINS OF R UP EXTREM Status: Acute (3) End-stage renal disease on hemodialysis Code(s): N18.6 - END STAGE RENAL DISEASE; Z99.2 - DEPENDENCE ON RENAL DIALYSIS Status: Chronic (4) Acute on chronic diastolic (congestive) heart failure Code(s): I50.33 - ACUTE ON CHRONIC DIASTOLIC (CONGESTIVE) HEART FAILURE Status: Resolved (5) Anxiety and depression Code(s): F41.9 - ANXIETY DISORDER, UNSPECIFIED; F32.9 - MAJOR DEPRESSIVE DISORDER, SINGLE EPISODE, UNSPECIFIED Status: Chronic (6) CAD (coronary artery disease) Code(s): I25.10 - ATHSCL HEART DISEASE OF [place] CORONARY ARTERY W/O ANG PCTRS Status: Chronic Qualifiers: Coronary Disease-Associated Artery/Lesion type: nome artery [place] vs. transplanted heart: nome heart (7) Diabetes type 2, controlled Code(s): E11.9 - TYPE 2 DIABETES MELLITUS WITHOUT COMPLICATIONS Status: Chronic Qualifiers: Diabetes mellitus care home insulin use: with terminal makeup operator use Diabetes mellitus complication status: with kidney complications Diabetes mellitus complication detail: with chronic kidney disease Chronic kidney disease stage: on chronic dialysis Qualified Code(s): E11.22 - Type 2 diabetes mellitus with diabetic chronic kidney disease; N18.6 - End stage renal disease; Z79.4 - MCFP (current) use of insulin; Z99.2 - Dependence on renal dialysis (8) Dyslipidemia Code(s): E78.5 - HYPERLIPIDEMIA, UNSPECIFIED Status: Chronic (9) Gout Code(s): M10.9 - GOUT, UNSPECIFIED Status: Chronic Qualifiers: Gout site: unspecified site Chronicity: chronic Presence of tophus: without tophus (10) Hypertension Code(s): I10 - ESSENTIAL (PRIMARY) HYPERTENSION Status: Chronic Qualifiers: Hypertension type: essential hypertension Qualified Code(s): I10 - Essential (primary) hypertension (11) Infection of AV graft for dialysis Code(s): T82.7XXA - INFECT/INFLM REACT D/T OTH CARDI/VASC DEV/IMPLNT/GRFT, INIT Status: Acute - Plan s/p extraction of av graft is on vanc with HD eliquis for dvt, lipitor, cymbalta, neurontin, lantus will need swing/rehab for dc plan, has severe deconditioning, agrees to go in [facility] ef of around 30%, has aicd PT to mobilize as tolerated, right UE to be elevated over pillows encourage po intake await placement, may dc if ready
[2020-06-21] MEDS ORDERED: Heparin 10,000 UNITS/ 10 ML VIAL ONE (12:22)
--- NOTE | 2020-06-21 12:50 | PRG ---
DATE OF SERVICE: 06/21/2020 SUBJECTIVE: A 70-year-old female, being seen for end-stage renal disease. The patient denied nausea, vomiting, or chest pain. PHYSICAL EXAMINATION: General: The patient is awake and alert. Vital Signs: Afebrile, pulse 80, breathing at 16, blood pressure 115/66. HEENT: Head normocephalic and atraumatic. Eyes intact, no ulcers. Nose intact, no ulcers. Ears intact, no ulcers. Neck: Supple. No JVD. Chest: Symmetrical and clear. Cardiovascular: Shows S1 and S2, no rub, no murmur. Gastrointestinal: Abdomen is soft, bowel sounds positive. Extremities: Show no edema or ulcers. Skin: Shows no rash or petechiae. Musculoskeletal: Shows no joint swelling or stiffness. Genitourinary: Shows no Rajan or CVA tenderness. Neurologic: Motor intact. Cranial nerves intact. LABORATORY DATA: Reviewed. ASSESSMENT AND PLAN: 1. Stage 6 chronic kidney disease, stable. 2. Hypertension, stable. 3. Anemia, stable. 4. Medication based on GFR, appropriate. Job ID: [id number]
--- NOTE | 2020-06-21 13:05 | PDOC.GSPN ---
Surgery Progress Note: Subj - Subjective Narrative: Patient feels good. No pain in her arm and no fevers or chills. Her wound looks excellent. It is clean and granulating. We placed Promogran and a surface wound VAC which can be left in place for 7 days. From a surgical standpoint she is ready to be discharged as long as she has antibiotics arranged. Her most recent cultures are negative thus far. Blood cultures sent on June 14 had 1 out of 2 sets positive for MRSA still however. She will need follow-up with infectious disease. If they feel that her catheter needs to be removed, please contact my office to arrange this. Surgery Progress Note: Obj - Vital signs Vital signs: Vital Signs - Most Recent Temp Pulse Resp BP Pulse Ox 97.5 F L 99 16 96/54 L 93 L 06/21/20 11:30 06/21/20 11:30 06/21/20 11:30 06/21/20 11:30 06/21/20 11:30 Surgery Progress Note: Results - Labs Result Diagrams: 06/20/20 04:38 06/20/20 04:38 Lab results: Laboratory Results - last 12 hr 06/20/20 06/21/20 06/21/20 10:48 06:08 08:32 POC Glucose 166 H 120 H Random Vancomycin 16.5 06/21/20 11:52 POC Glucose 127 H Random Vancomycin
[2020-06-21] MEDS: Lidocaine 5% Patch TD SCH (13:36)
[2020-06-21] MEDS: Insulin Glargine 10 UNITS in Pre-Filled Syringe 1 EACH SC SCH ×2 (13:41→15:29)
[2020-06-21] MEDS: EPOETIN ALFA-EPBX (ESRD) 10,000 UNIT/ML VIAL IVP SCH (13:41)
--- NOTE | 2020-06-21 16:17 | PDOC.FMACP ---
Advance Care Planning - Problem (1) Palliative care encounter Status: Acute Code(s): Z51.5 - ENCOUNTER FOR PALLIATIVE CARE (2) Declining functional status Status: Acute Code(s): R53.81 - OTHER MALAISE (3) Deep vein thrombosis, upper right extremity Status: Acute Code(s): I82.621 - ACUTE EMBOLISM AND THROMBOSIS OF DEEP VEINS OF R UP EXTREM (4) Infection of AV graft for dialysis Status: Acute Code(s): T82.7XXA - INFECT/INFLM REACT D/T OTH CARDI/VASC DEV/IMPLNT/GRFT, INIT (5) End-stage renal disease on hemodialysis Status: Chronic Code(s): N18.6 - END STAGE RENAL DISEASE; Z99.2 - DEPENDENCE ON RENAL DIALYSIS (6) Chronic combined systolic and diastolic heart failure Status: Chronic Code(s): I50.42 - CHRONIC COMBINED SYSTOLIC AND DIASTOLIC HRT FAIL - Note Participants: patient, family, palliative care Summary: Palliative Care has facilitated several conversations in relation to Advanced Care Planning. The diagnosis, prognosis and goals of care were discussed. Appropriate forms and documentation to accomplish the goals of care were discussed. All questions were answered. Confirmed DNAR status. S Yash Palliative care to assist with OOHDNAR when patient daughter arrives. MPOA previously completed, continues to be her daughter. As for Goal of Care Pa lliative Care RN confirms that patient and daughter remain undecided in relation to discharge home with hospice or transition to skilled setting. Currently the process for discharge to skilled setting is in process. Should Ms Bruce decide to complete Directive to Physician Palliative Care will assist. *DNAR, Palliative Care will assist in OOHDNAR and notify Hospitalist when on chart for signature *Confirmed MPOA *Undecided if transition home with hospice or to facility. Please also refer to Palliative Care notes in note section. Time Spent (mins): 20
--- NOTE | 2020-06-21 16:51 | PRG ---
DATE OF SERVICE: 06/21/2020 SUBJECTIVE: In the tele still, she is feeling okay, still a little bit of pain in the left shoulder when she moves it around. No shortness of breath or chest pain. No abdominal pain. No diarrhea. She has not had a fever in a while. OBJECTIVE: VITAL SIGNS: BP 113/65, heart rate 99, O2 saturation 93 on room air. GENERAL: Awake, alert, and oriented, chronically ill-appearing, but in no distress. Pleasant. CHEST: Lungs are symmetric. Clear breath sounds. Pacer pocket is not tender, but the left tunneled hemodialysis catheter appears to be tender to touch. The left upper extremity dressing is intact and not removed. HEART: S1 and S2. Regular rate. ABDOMEN: Soft, not distended or tender. Still has a right-sided femoral catheter in place. EXTREMITIES: She is able to move extremities. A very little edema. NEUROLOGIC: Awake and oriented. Knows her name, location, and date. Speech appears to be normal. Moves all extremities equally. LABORATORY DATA: White cell count is at 6.2, hemoglobin 9.8, platelets 123, and 78% neutrophils. Chemistry with the expected changes. Repeat blood cultures, now we have a positive from 06/16, one out of two thus far with MRSA. This is labeled as being from the right common femoral vein. She has had thus far 7 positive blood cultures starting on 06/04. ASSESSMENT AND DISCUSSION: Type 2 diabetes and end-stage renal disease with infection in the left upper extremity graft, which has been removed. This is connected with methicillin-resistant Staphylococcus aureus bacteremia, which is persistent even after graft removal and antimicrobial therapy, which raises the possibility of colonization either of the left-sided tunneled hemodialysis catheter or the right groin line or the automatic implantable cardioverter-defibrillator leads. The patient has fresh culture submitted about 2 days ago, 3 days ago from the subclavian vein. I would advise removal of the right groin line for now and then see what the cultures from the subclavian vein jewel bearing turner to be. The plan is a total of 6 weeks of therapy with IV vancomycin sliding scale and the end date of therapy is sometime around the end of this month or the beginning of next month. If the bacteremia resumes, then the catheter will have to be removed, the tunneled catheter in the left IJ position. She is still at risk for endocarditis and colonization of the pacer leads. Job ID: [id number]
[2020-06-21] MEDS: HumaLOG 300 UNITS/3 ML VIAL SC PRN ×2 (18:25→21:11)
[2020-06-21] MEDS: Atorvastatin Calcium 20 MG TAB PO SCH (21:09)
[2020-06-22] MEDS: HYDROcodone/Acetaminophen 10/325 mg Tablet PO PRN ×2 (05:51→14:33)
[2020-06-22] MEDS: HumaLOG 300 UNITS/3 ML VIAL SC PRN (05:52)
[2020-06-22] MEDS: Aluminum & Magnesium Hydroxide 60 ML, diphenhydrAMINE 150 MG, Lidocaine 2% Viscous Solu... SSW SCH ×4 (08:00→21:09)
[2020-06-22] MEDS: Apixaban 5 MG TAB PO SCH ×2 (08:01→21:10)
[2020-06-22] MEDS: Metoclopramide 10 MG/10 ML UDCUP PO SCH ×4 (08:01→21:09)
[2020-06-22] MEDS: Gabapentin 100 MG CAP PO SCH (08:01)
[2020-06-22] MEDS: DULoxetine 60 MG CAP PO SCH (08:01)
[2020-06-22] MEDS: Midodrine HCl 5 MG TAB PO SCH ×3 (08:01→21:10)
[2020-06-22] MEDS: Docusate 100 MG CAP PO SCH ×2 (08:02→21:10)
[2020-06-22] MEDS: Polyethylene Glycol 3350 17 GM Packet PO SCH (08:02)
[2020-06-22] MEDS: Insulin Glargine 10 UNITS in Pre-Filled Syringe 1 EACH SC SCH (08:02)
[2020-06-22] MEDS: Lidocaine 5% Patch TD SCH (11:17)
--- NOTE | 2020-06-22 13:15 | PDOC.HOSPP ---
- Subjective Encounter Date: 06/22/20 Encounter Time: 09:50 Subjective: awake, no sob or pain feels better is trying to eat better says she walked 6ft with rw and PT - Objective Vital Signs & Weight: Vital Signs (12 hours) Temp Pulse Resp BP Pulse Ox 06/22/20 11:24 97.6 F 95 16 102/66 92 L 06/22/20 08:00 93 L 06/22/20 07:23 98.1 F 98 16 106/71 93 L 06/22/20 04:00 98.0 F 106 H 18 135/85 94 L Weight Admit Weight 170 lb 3.136 oz Weight 176 lb Most Recent Monitor Data Heart Rate from ECG 77 NIBP 116/55 NIBP BP-Mean 75 Respiration from ECG 24 SpO2 100 I&O: 06/21/20 06/22/20 06/23/20 06:59 06:59 06:59 Intake Total 320 1200 240 Balance 320 1200 240 Result Diagrams: 06/20/20 04:38 06/20/20 04:38 Additional Labs: Accuchecks 06/22/20 06/22/20 06/21/20 11:29 05:32 20:21 POC Glucose 202 H 220 H 227 H 06/21/20 18:08 POC Glucose 237 H Hospitalist ROS - Medication Medications: Active Medications Generic Name Dose Route Start Last Admin Trade Name Freq PRN Reason Stop Dose Admin Acetaminophen 650 mg 06/05/20 00:35 06/21/20 10:37 Acetaminophen 650 Mg/20.3 Ml Udcup PO 650 mg Q6H PRN Administration Fever > 101 or Mild Pain Hydrocodone Bitart/Acetaminophen 1 tab 06/14/20 17:52 06/22/20 05:51 Hydrocodone/Acetaminophen 10/325 Mg Tablet PO 1 tab Q4H PRN Administration Severe Pain (7-10) Apixaban 5 mg 06/08/20 21:00 06/22/20 08:01 Apixaban 5 Mg Tab PO 5 mg BID PASCUAL Administration Atorvastatin Calcium 20 mg 06/05/20 21:00 06/21/20 21:09 Atorvastatin Calcium 20 Mg Tab PO 20 mg HS PASCUAL Administration Al Hydroxide/Mg Hydroxide 60 0 ml 06/17/20 21:00 06/22/20 08:00 ml/ Diphenhydramine HCl 150 mg SSW 10 ml / Lidocaine HCl 60 ml/ ACHS PASCUAL Administration Nystatin 6,000,000 units Docusate Sodium 100 mg 06/17/20 21:00 06/22/20 08:02 Docusate 100 Mg Cap PO 100 mg BID PASCUAL Administration Duloxetine HCl 60 mg 06/05/20 09:00 06/22/20 08:01 Duloxetine 60 Mg Cap PO 60 mg DAILY PASCUAL Administration Epoetin Yrn-epbx 10,000 unit 06/18/20 11:00 06/21/20 13:41 Epoetin Yrn-Epbx (Esrd) 10,000 Unit/Ml Vial IVP 10,000 unit MoWeFr PASCUAL Administration Gabapentin 200 mg 06/19/20 09:00 06/22/20 08:01 Gabapentin 100 Mg Cap PO 200 mg DAILY PASCUAL Administration Guaifenesin/Dextromethorphan 15 ml 06/05/20 00:25 06/11/20 18:22 Guaifenesin Dm 100-10/5 Ml Udcup PO 15 ml Q4H PRN Administration Cough Insulin Glargine 10 units/ 0.1 mls @ 0 mls/hr 06/05/20 09:00 06/22/20 08:02 Miscellaneous Medication SC 0.1 mls DAILY PASCUAL Administration Vancomycin HCl 1 gm/ Device 200 mls @ 200 mls/hr 06/18/20 10:30 06/18/20 12:00 IVPB 200 mls WILLCALL PASCUAL Administration Vancomycin HCl 750 mg/ Sodium 250 mls @ 250 mls/hr 06/18/20 10:30 06/21/20 10:15 Chloride IVPB 250 mls WILLCALL PASCUAL Administration Insulin Human Lispro 0 units 06/05/20 00:30 06/22/20 05:52 Humalog 300 Units/3 Ml Vial SC 3 unit .MILD SLIDING SCALE PRN Administration Mild Correctional Scale Insulin Human Lispro 0 units 06/10/20 21:27 06/18/20 21:16 Humalog 300 Units/3 Ml Vial SC 2 unit .BEDTIME SLIDING SC PRN Administration Bedtime Correctional Scale Lidocaine 1 patch 06/13/20 11:00 06/22/20 11:17 Lidocaine 5% Patch TD 1 patch 1100 PASCUAL Administration Metoclopramide HCl 5 mg 06/17/20 21:00 06/22/20 11:17 Metoclopramide 10 Mg/10 Ml Udcup PO 5 mg ACHS PASCUAL Administration Midodrine 5 mg 06/16/20 21:00 06/22/20 08:01 Midodrine Hcl 5 Mg Tab PO 5 mg TID PASCUAL Administration Miscellaneous Medication 1 each 06/13/20 23:00 06/21/20 23:35 Lidocaine Patch Removal TOP Not Given 2300 PASCUAL Ondansetron HCl 4 mg 06/05/20 00:25 06/20/20 00:45 Ondansetron Pf 4 Mg/2 Ml Vial IVP 4 mg Q6H PRN Administration Nausea/Vomiting use 1st Pantoprazole Sodium 40 mg 06/15/20 21:00 06/21/20 21:10 Pantoprazole 40 Mg Tab PO 40 mg HS PASCUAL Administration Polyethylene Glycol 17 gm 06/18/20 09:00 06/22/20 08:02 Polyethylene Glycol 3350 17 Gm Packet PO 17 gm DAILY PASCUAL Administration Sodium Chloride 10 ml 06/05/20 09:00 06/22/20 08:08 Flush - Normal Saline 10 Ml Syringe IVF 10 ml Q12HR PASCUAL Administration Sodium Chloride 10 ml 06/05/20 00:45 06/20/20 00:47 Flush - Normal Saline 10 Ml Syringe IVF 10 ml PRN PRN Administration Saline Flush Tramadol HCl 50 mg 06/16/20 10:43 06/16/20 21:11 Tramadol Hcl 50 Mg Tab PO 50 mg Q12H PRN Administration Moderate Pain (4-6) - Exam General Appearance: awake alert Eye: PERRL, anicteric sclera ENT: no oropharyngeal lesions, moist mucosa Neck: supple, no JVD Heart: RRR, no murmur Respiratory: no wheezes, no rales Gastrointestinal: soft, non-tender, non-distended, normal bowel sounds Extremities: no cyanosis, 1+ LE edema Neurological: cranial nerve grossly intact, no focal deficits Psychiatric: A&O x 3 Hosp A/P (1) MRSA bacteremia Code(s): R78.81 - BACTEREMIA; B95.62 - METHICILLIN RESIS STAPH INFCT CAUSING DISEASES CLASSD ELSWHR Status: Acute (2) Deep vein thrombosis, upper right extremity Code(s): I82.621 - ACUTE EMBOLISM AND THROMBOSIS OF DEEP VEINS OF R UP EXTREM Status: Acute (3) End-stage renal disease on hemodialysis Code(s): N18.6 - END STAGE RENAL DISEASE; Z99.2 - DEPENDENCE ON RENAL DIALYSIS Status: Chronic (4) Acute on chronic diastolic (congestive) heart failure Code(s): I50.33 - ACUTE ON CHRONIC DIASTOLIC (CONGESTIVE) HEART FAILURE Status: Resolved (5) Anxiety and depression Code(s): F41.9 - ANXIETY DISORDER, UNSPECIFIED; F32.9 - MAJOR DEPRESSIVE DISORDER, SINGLE EPISODE, UNSPECIFIED Status: Chronic (6) CAD (coronary artery disease) Code(s): I25.10 - ATHSCL HEART DISEASE OF [place] CORONARY ARTERY W/O ANG PCTRS Status: Chronic Qualifiers: Coronary Disease-Associated Artery/Lesion type: ruby artery [place] vs. transplanted heart: [place] heart (7) Diabetes type 2, controlled Code(s): E11.9 - TYPE 2 DIABETES MELLITUS WITHOUT COMPLICATIONS Status: Chronic Qualifiers: Diabetes mellitus termite renewal inspector insulin use: with termite renewal inspector use Diabetes mellitus complication status: with kidney complications Diabetes mellitus complication detail: with chronic kidney disease Chronic kidney disease stage: on chronic dialysis Qualified Code(s): E11.22 - Type 2 diabetes mellitus with diabetic chronic kidney disease; N18.6 - End stage renal disease; Z79.4 - retirement (current) use of insulin; Z99.2 - Dependence on renal dialysis (8) Dyslipidemia Code(s): E78.5 - HYPERLIPIDEMIA, UNSPECIFIED Status: Chronic (9) Gout Code(s): M10.9 - GOUT, UNSPECIFIED Status: Chronic Qualifiers: Gout site: unspecified site Chronicity: chronic Presence of tophus: without tophus (10) Hypertension Code(s): I10 - ESSENTIAL (PRIMARY) HYPERTENSION Status: Chronic Qualifiers: Hypertension type: essential hypertension Qualified Code(s): I10 - Essential (primary) hypertension (11) Infection of AV graft for dialysis Code(s): T82.7XXA - INFECT/INFLM REACT D/T OTH CARDI/VASC DEV/IMPLNT/GRFT, INIT Status: Acute - Plan s/p extraction of av graft, will need removal of central line and likely her tunnelled HD cath as well per is on vanc with HD eliquis for dvt, lipitor, cymbalta, neurontin, lantus will need swing/rehab for dc plan, has severe deconditioning, agrees to go in [place] [facility] ef of around 30%, has aicd PT to mobilize as tolerated, right UE to be elevated over pillows encourage po intake await placement.
--- NOTE | 2020-06-22 19:58 | PRG ---
DATE OF SERVICE: 06/22/2020 SUBJECTIVE: A 70-year-old female, being seen for end-stage renal disease. The patient denied nausea, vomiting, or chest pain. PHYSICAL EXAMINATION: General: The patient is awake and alert. Vital Signs: Afebrile, pulse 75, breathing at 16, blood pressure HEENT: Head normocephalic and atraumatic. Eyes intact, no ulcers. Nose intact, no ulcers. Ears intact, no ulcers. Neck: Supple. No JVD. Chest: Symmetrical and clear. Cardiovascular: Shows S1 and S2, no rub, no murmur. Gastrointestinal: Abdomen is soft, bowel sounds positive. Extremities: Show no edema or ulcers. Skin: Shows no rash or petechiae. Musculoskeletal: Shows no joint swelling or stiffness. Genitourinary: Shows no Rajan or CVA tenderness. Neurologic: Motor intact. Cranial nerves intact. LABORATORY DATA: Reviewed. ASSESSMENT AND PLAN: 1. Stage 6 chronic kidney disease . 2. Hypertension, stable. 3. Anemia, stable. 4. Medication based on GFR, appropriate. Job ID: [id number]
[2020-06-22] MEDS: Atorvastatin Calcium 20 MG TAB PO SCH (21:10)
[2020-06-22] MEDS: Lidocaine Patch Removal TOP SCH (23:00)
[2020-06-23] MEDS: HYDROcodone/Acetaminophen 10/325 mg Tablet PO PRN (07:23)
[2020-06-23 07:45] LABS: Anion Gap 19 mmol/L (10-20); BUN (Urea Nitrogen) 35 mg/dL (9.8-20.1); Calc. Creatinine Clearance 14 mL/min (70-130); Calcium 7.9 mg/dL (7.8-10.44); Carbon Dioxide 21 mmol/L (23-31); Chloride 98 mmol/L (98-107); Estimated GFR-MDRD 9; Glucose 219 mg/dL (83-110); Potassium 4.5 mmol/L (3.5-5.1); Sodium 133 mmol/L (136-145)
[2020-06-23] MEDS: Metoclopramide 10 MG/10 ML UDCUP PO SCH ×4 (08:51→20:14)
[2020-06-23] MEDS: Aluminum & Magnesium Hydroxide 60 ML, diphenhydrAMINE 150 MG, Lidocaine 2% Viscous Solu... SSW SCH ×4 (08:51→20:15)
[2020-06-23] MEDS: Apixaban 5 MG TAB PO SCH ×2 (08:52→20:14)
[2020-06-23] MEDS: Midodrine HCl 5 MG TAB PO SCH ×3 (08:52→20:14)
[2020-06-23] MEDS: Docusate 100 MG CAP PO SCH ×2 (08:52→20:14)
[2020-06-23 09:35] LABS: Vancomycin, Random 17.5 ug/mL (See Comment)
[2020-06-23 09:37] LABS: Anion Gap 17 mmol/L (10-20); BUN (Urea Nitrogen) 27 mg/dL (9.8-20.1); Calc. Creatinine Clearance 18 mL/min (70-130); Calcium 7.8 mg/dL (7.8-10.44); Carbon Dioxide 24 mmol/L (23-31); Chloride 98 mmol/L (98-107); Estimated GFR-MDRD 12; Glucose 197 mg/dL (83-110); Potassium 3.7 mmol/L (3.5-5.1); Sodium 135 mmol/L (136-145)
[2020-06-23] MEDS: Ondansetron PF 4 MG/2 ML Vial IVP PRN (10:50)
--- NOTE | 2020-06-23 11:56 | PRG ---
DATE OF SERVICE: 06/23/2020 SUBJECTIVE: A 70-year-old female being seen for end-stage renal disease. The patient denied any nausea, vomiting, or chest pain. OBJECTIVE: GENERAL: On exam, the patient is awake and alert. VITAL SIGNS: Afebrile, pulse 91, breathing at 16, and blood pressure 131/74. HEENT: Head normocephalic and atraumatic. Eyes intact, no ulcers. Nose intact, no ulcers. Ears intact, no ulcers. NECK: Supple. No JVD. CHEST: Symmetrical and clear. CARDIOVASCULAR: Shows S1 and S2, no rub, no murmur. GASTROINTESTINAL: Abdomen is soft, bowel sounds positive. EXTREMITIES: Show no edema or ulcers. SKIN: Shows no rash or petechiae. MUSCULOSKELETAL: Shows no joint swelling or stiffness. GENITOURINARY: Shows no Rajan or CVA tenderness. NEUROLOGIC: Motor intact. Cranial nerves intact. LABORATORY DATA: Hemoglobin 9.8. ASSESSMENT/PLAN: 1. Stage 6 chronic kidney disease. Plan dialysis. 2. Hypertension, stable. 3. Anemia, stable. 4. Medications based on glomerular filtration rate are appropriate. Job ID: [id number]
[2020-06-23] MEDS: DULoxetine 60 MG CAP PO SCH (12:05)
[2020-06-23] MEDS: Gabapentin 100 MG CAP PO SCH (12:06)
[2020-06-23] MEDS: Insulin Glargine 10 UNITS in Pre-Filled Syringe 1 EACH SC SCH (12:06)
[2020-06-23] MEDS: Lidocaine 5% Patch TD SCH (12:07)
[2020-06-23] MEDS: Polyethylene Glycol 3350 17 GM Packet PO SCH (12:07)
[2020-06-23] MEDS: EPOETIN ALFA-EPBX (ESRD) 10,000 UNIT/ML VIAL IVP SCH (12:07)
[2020-06-23] MEDS ORDERED: Heparin 10,000 UNITS/ 10 ML VIAL ONE (13:11)
--- NOTE | 2020-06-23 13:23 | PDOC.HOSPP ---
- Subjective Encounter Date: 06/23/20 Encounter Time: 13:00 Subjective: is getting hemodialysis no sob or fever feels better - Objective Vital Signs & Weight: Vital Signs (12 hours) Temp Pulse Resp BP Pulse Ox 06/23/20 12:00 97.7 F 102 H 18 103/67 94 L 06/23/20 08:00 95 06/23/20 07:34 97.8 F 105 H 18 141/74 H 95 06/23/20 07:25 97.8 F 104 H 18 141/74 H 95 06/23/20 04:00 97.5 F L 91 18 131/84 96 Weight Admit Weight 170 lb 3.136 oz Weight 176 lb Most Recent Monitor Data Heart Rate from ECG 77 NIBP 116/55 NIBP BP-Mean 75 Respiration from ECG 24 SpO2 100 I&O: 06/22/20 06/23/20 06/24/20 06:59 06:59 06:59 Intake Total 1200 720 Balance 1200 720 Result Diagrams: 06/20/20 04:38 06/23/20 08:28 Additional Labs: Accuchecks 06/23/20 06/23/20 06/22/20 12:21 04:52 19:29 POC Glucose 153 H 190 H 169 H 06/22/20 15:27 POC Glucose 202 H Hospitalist ROS - Medication Medications: Active Medications Generic Name Dose Route Start Last Admin Trade Name Freq PRN Reason Stop Dose Admin Acetaminophen 650 mg 06/05/20 00:35 06/21/20 10:37 Acetaminophen 650 Mg/20.3 Ml Udcup PO 650 mg Q6H PRN Administration Fever > 101 or Mild Pain Hydrocodone Bitart/Acetaminophen 1 tab 06/14/20 17:52 06/23/20 07:23 Hydrocodone/Acetaminophen 10/325 Mg Tablet PO 1 tab Q4H PRN Administration Severe Pain (7-10) Apixaban 5 mg 06/08/20 21:00 06/23/20 08:52 Apixaban 5 Mg Tab PO Not Given BID PASCUAL Atorvastatin Calcium 20 mg 06/05/20 21:00 06/22/20 21:10 Atorvastatin Calcium 20 Mg Tab PO 20 mg HS PASCUAL Administration Al Hydroxide/Mg Hydroxide 60 0 ml 06/17/20 21:00 06/23/20 12:08 ml/ Diphenhydramine HCl 150 mg SSW 10 ml / Lidocaine HCl 60 ml/ ACHS PASCUAL Administration Nystatin 6,000,000 units Docusate Sodium 100 mg 06/17/20 21:00 06/23/20 08:52 Docusate 100 Mg Cap PO Not Given BID PASCUAL Duloxetine HCl 60 mg 06/05/20 09:00 06/23/20 12:05 Duloxetine 60 Mg Cap PO 60 mg DAILY PASCUAL Administration Epoetin Yrn-epbx 10,000 unit 06/18/20 11:00 06/23/20 12:07 Epoetin Yrn-Epbx (Esrd) 10,000 Unit/Ml Vial IVP Not Given MoWeFr PASCUAL Gabapentin 200 mg 06/19/20 09:00 06/23/20 12:06 Gabapentin 100 Mg Cap PO 200 mg DAILY PASCUAL Administration Guaifenesin/Dextromethorphan 15 ml 06/05/20 00:25 06/11/20 18:22 Guaifenesin Dm 100-10/5 Ml Udcup PO 15 ml Q4H PRN Administration Cough Insulin Glargine 10 units/ 0.1 mls @ 0 mls/hr 06/05/20 09:00 06/23/20 12:06 Miscellaneous Medication SC 0.1 mls DAILY PASCUAL Administration Vancomycin HCl 1 gm/ Device 200 mls @ 200 mls/hr 06/18/20 10:30 06/18/20 12:00 IVPB 200 mls WILLCALL PASCUAL Administration Vancomycin HCl 750 mg/ Sodium 250 mls @ 250 mls/hr 06/18/20 10:30 06/21/20 10:15 Chloride IVPB 250 mls WILLCALL PASCUAL Administration Insulin Human Lispro 0 units 06/05/20 00:30 06/22/20 05:52 Humalog 300 Units/3 Ml Vial SC 3 unit .MILD SLIDING SCALE PRN Administration Mild Correctional Scale Insulin Human Lispro 0 units 06/10/20 21:27 06/18/20 21:16 Humalog 300 Units/3 Ml Vial SC 2 unit .BEDTIME SLIDING SC PRN Administration Bedtime Correctional Scale Lidocaine 1 patch 06/13/20 11:00 06/23/20 12:07 Lidocaine 5% Patch TD Not Given 1100 PASCUAL Metoclopramide HCl 5 mg 06/17/20 21:00 06/23/20 12:07 Metoclopramide 10 Mg/10 Ml Udcup PO 5 mg ACHS PASCUAL Administration Midodrine 5 mg 06/16/20 21:00 06/23/20 08:52 Midodrine Hcl 5 Mg Tab PO Not Given TID PASCUAL Miscellaneous Medication 1 each 06/13/20 23:00 06/22/20 23:00 Lidocaine Patch Removal TOP 1 each 2300 PASCUAL Administration Ondansetron HCl 4 mg 06/05/20 00:25 06/23/20 10:50 Ondansetron Pf 4 Mg/2 Ml Vial IVP 4 mg Q6H PRN Administration Nausea/Vomiting use 1st Pantoprazole Sodium 40 mg 06/15/20 21:00 06/22/20 21:10 Pantoprazole 40 Mg Tab PO 40 mg HS PASCUAL Administration Polyethylene Glycol 17 gm 06/18/20 09:00 06/23/20 12:07 Polyethylene Glycol 3350 17 Gm Packet PO Not Given DAILY PASCUAL Sodium Chloride 10 ml 06/05/20 09:00 06/23/20 08:52 Flush - Normal Saline 10 Ml Syringe IVF Not Given Q12HR PASCUAL Sodium Chloride 10 ml 06/05/20 00:45 06/20/20 00:47 Flush - Normal Saline 10 Ml Syringe IVF 10 ml PRN PRN Administration Saline Flush Tramadol HCl 50 mg 06/16/20 10:43 06/16/20 21:11 Tramadol Hcl 50 Mg Tab PO 50 mg Q12H PRN Administration Moderate Pain (4-6) - Exam General Appearance: awake alert Eye: PERRL, anicteric sclera ENT: no oropharyngeal lesions, moist mucosa Neck: supple, no JVD Heart: RRR, no murmur Respiratory: no wheezes, no rales Gastrointestinal: soft, non-tender, non-distended, normal bowel sounds Extremities: no cyanosis, no edema Neurological: cranial nerve grossly intact, no focal deficits Psychiatric: normal affect, A&O x 3 Hosp A/P (1) MRSA bacteremia Code(s): R78.81 - BACTEREMIA; B95.62 - METHICILLIN RESIS STAPH INFCT CAUSING DISEASES CLASSD ELSWHR Status: Acute (2) Deep vein thrombosis, upper right extremity Code(s): I82.621 - ACUTE EMBOLISM AND THROMBOSIS OF DEEP VEINS OF R UP EXTREM Status: Acute (3) End-stage renal disease on hemodialysis Code(s): N18.6 - END STAGE RENAL DISEASE; Z99.2 - DEPENDENCE ON RENAL DIALYSIS Status: Chronic (4) Acute on chronic diastolic (congestive) heart failure Code(s): I50.33 - ACUTE ON CHRONIC DIASTOLIC (CONGESTIVE) HEART FAILURE Status: Resolved (5) Anxiety and depression Code(s): F41.9 - ANXIETY DISORDER, UNSPECIFIED; F32.9 - MAJOR DEPRESSIVE DISORDER, SINGLE EPISODE, UNSPECIFIED Status: Chronic (6) CAD (coronary artery disease) Code(s): I25.10 - ATHSCL HEART DISEASE OF [place] CORONARY ARTERY W/O ANG PCTRS Status: Chronic Qualifiers: Coronary Disease-Associated Artery/Lesion type: [place] artery [place] vs. transplanted heart: [place] heart (7) Diabetes type 2, controlled Code(s): E11.9 - TYPE 2 DIABETES MELLITUS WITHOUT COMPLICATIONS Status: Chronic Qualifiers: Diabetes mellitus long-term insulin use: with long-term use Diabetes mellitus complication status: with kidney complications Diabetes mellitus complication detail: with chronic kidney disease Chronic kidney disease stage: on chronic dialysis Qualified Code(s): E11.22 - Type 2 diabetes mellitus with diabetic chronic kidney disease; N18.6 - End stage renal disease; Z79.4 - watermelon inspector (current) use of insulin; Z99.2 - Dependence on renal dialysis (8) Dyslipidemia Code(s): E78.5 - HYPERLIPIDEMIA, UNSPECIFIED Status: Chronic (9) Gout Code(s): M10.9 - GOUT, UNSPECIFIED Status: Chronic Qualifiers: Gout site: unspecified site Chronicity: chronic Presence of tophus: without tophus (10) Hypertension Code(s): I10 - ESSENTIAL (PRIMARY) HYPERTENSION Status: Chronic Qualifiers: Hypertension type: essential hypertension Qualified Code(s): I10 - Essential (primary) hypertension (11) Infection of AV graft for dialysis Code(s): T82.7XXA - INFECT/INFLM REACT D/T OTH CARDI/VASC DEV/IMPLNT/GRFT, INIT Status: Acute - Plan s/p extraction of av graft, will need removal of central line today and likely her tunnelled HD cath as well per is on vanc with HD eliquis for dvt, lipitor, cymbalta, neurontin, lantus will need swing/rehab for dc plan, has severe deconditioning, agrees to go to [place] [facility] ef of around 30%, has aicd PT to mobilize as tolerated, right UE to be elevated over pillows encourage po intake await placement.
[2020-06-23] MEDS: HumaLOG 300 UNITS/3 ML VIAL SC PRN (16:15)
[2020-06-23] MEDS: Atorvastatin Calcium 20 MG TAB PO SCH (20:14)
[2020-06-23] MEDS: Lidocaine Patch Removal TOP SCH (23:00)
[2020-06-24] MEDS: HYDROcodone/Acetaminophen 10/325 mg Tablet PO PRN (05:00)
[2020-06-24 07:25] VITALS: BMI 24.5
[2020-06-24] MEDS: Insulin Glargine 10 UNITS in Pre-Filled Syringe 1 EACH SC SCH (08:58)
[2020-06-24] MEDS: Gabapentin 100 MG CAP PO SCH (08:58)
[2020-06-24] MEDS: Metoclopramide 10 MG/10 ML UDCUP PO SCH ×4 (08:58→21:17)
[2020-06-24] MEDS: Midodrine HCl 5 MG TAB PO SCH ×3 (08:59→21:18)
[2020-06-24] MEDS: Apixaban 5 MG TAB PO SCH ×2 (08:59→21:18)
[2020-06-24] MEDS: Docusate 100 MG CAP PO SCH ×2 (08:59→21:18)
[2020-06-24] MEDS: DULoxetine 60 MG CAP PO SCH (08:59)
[2020-06-24] MEDS: Polyethylene Glycol 3350 17 GM Packet PO SCH (08:59)
[2020-06-24] MEDS: Aluminum & Magnesium Hydroxide 60 ML, diphenhydrAMINE 150 MG, Lidocaine 2% Viscous Solu... SSW SCH ×4 (09:21→21:18)
[2020-06-24] MEDS: Lidocaine 5% Patch TD SCH (11:26)
[2020-06-24] MEDS: HumaLOG 300 UNITS/3 ML VIAL SC PRN (11:29)
--- NOTE | 2020-06-24 13:04 | PDOC.HOSPP ---
- Subjective Encounter Date: 06/24/20 Encounter Time: 11:30 Subjective: no sob or fever says she is eating better had HD yesterday - Objective Vital Signs & Weight: Vital Signs (12 hours) Temp Pulse Resp BP Pulse Ox 06/24/20 11:27 97.3 F L 119 H 18 132/74 92 L 06/24/20 08:00 92 L 06/24/20 07:26 98.3 F 102 H 16 137/80 92 L 06/24/20 04:00 98.2 F 104 H 17 107/69 94 L Weight Admit Weight 170 lb 3.136 oz Weight 176 lb Most Recent Monitor Data Heart Rate from ECG 77 NIBP 116/55 NIBP BP-Mean 75 Respiration from ECG 24 SpO2 100 I&O: 06/23/20 06/24/20 06/25/20 06:59 06:59 06:59 Intake Total 720 720 Output Total 1800 Balance 720 -1080 Result Diagrams: 06/20/20 04:38 06/23/20 08:28 Additional Labs: Accuchecks 06/24/20 06/23/20 06/23/20 11:34 20:47 15:54 POC Glucose 209 H 181 H 189 H Hospitalist ROS - Medication Medications: Active Medications Generic Name Dose Route Start Last Admin Trade Name Freq PRN Reason Stop Dose Admin Acetaminophen 650 mg 06/05/20 00:35 06/21/20 10:37 Acetaminophen 650 Mg/20.3 Ml Udcup PO 650 mg Q6H PRN Administration Fever > 101 or Mild Pain Hydrocodone Bitart/Acetaminophen 1 tab 06/14/20 17:52 06/24/20 05:00 Hydrocodone/Acetaminophen 10/325 Mg Tablet PO 1 tab Q4H PRN Administration Severe Pain (7-10) Apixaban 5 mg 06/08/20 21:00 06/24/20 08:59 Apixaban 5 Mg Tab PO 5 mg BID PASCUAL Administration Atorvastatin Calcium 20 mg 06/05/20 21:00 06/23/20 20:14 Atorvastatin Calcium 20 Mg Tab PO 20 mg HS PASCUAL Administration Al Hydroxide/Mg Hydroxide 60 0 ml 06/17/20 21:00 06/24/20 11:26 ml/ Diphenhydramine HCl 150 mg SSW 10 ml / Lidocaine HCl 60 ml/ ACHS PASCUAL Administration Nystatin 6,000,000 units Docusate Sodium 100 mg 06/17/20 21:00 06/24/20 08:59 Docusate 100 Mg Cap PO 100 mg BID PASCUAL Administration Duloxetine HCl 60 mg 06/05/20 09:00 06/24/20 08:59 Duloxetine 60 Mg Cap PO 60 mg DAILY PASCUAL Administration Epoetin Yrn-epbx 10,000 unit 06/18/20 11:00 06/23/20 12:07 Epoetin Yrn-Epbx (Esrd) 10,000 Unit/Ml Vial IVP Not Given MoWeFr PASCUAL Gabapentin 200 mg 06/19/20 09:00 06/24/20 08:58 Gabapentin 100 Mg Cap PO 200 mg DAILY PASCUAL Administration Guaifenesin/Dextromethorphan 15 ml 06/05/20 00:25 06/11/20 18:22 Guaifenesin Dm 100-10/5 Ml Udcup PO 15 ml Q4H PRN Administration Cough Insulin Glargine 10 units/ 0.1 mls @ 0 mls/hr 06/05/20 09:00 06/24/20 08:58 Miscellaneous Medication SC 0.1 mls DAILY PASCUAL Administration Vancomycin HCl 1 gm/ Device 200 mls @ 200 mls/hr 06/18/20 10:30 06/18/20 12:00 IVPB 200 mls WILLCALL PASCUAL Administration Vancomycin HCl 750 mg/ Sodium 250 mls @ 250 mls/hr 06/18/20 10:30 06/21/20 10:15 Chloride IVPB 250 mls WILLCALL PASCUAL Administration Insulin Human Lispro 0 units 06/05/20 00:30 06/24/20 11:29 Humalog 300 Units/3 Ml Vial SC 3 unit .MILD SLIDING SCALE PRN Administration Mild Correctional Scale Insulin Human Lispro 0 units 06/10/20 21:27 06/18/20 21:16 Humalog 300 Units/3 Ml Vial SC 2 unit .BEDTIME SLIDING SC PRN Administration Bedtime Correctional Scale Lidocaine 1 patch 06/13/20 11:00 06/24/20 11:26 Lidocaine 5% Patch TD 1 patch 1100 PASCUAL Administration Metoclopramide HCl 5 mg 06/17/20 21:00 06/24/20 11:26 Metoclopramide 10 Mg/10 Ml Udcup PO 5 mg ACHS PASCUAL Administration Midodrine 5 mg 06/16/20 21:00 06/24/20 08:59 Midodrine Hcl 5 Mg Tab PO 5 mg TID PASCUAL Administration Miscellaneous Medication 1 each 06/13/20 23:00 06/23/20 23:00 Lidocaine Patch Removal TOP 1 each 2300 PASCUAL Administration Ondansetron HCl 4 mg 06/05/20 00:25 06/23/20 10:50 Ondansetron Pf 4 Mg/2 Ml Vial IVP 4 mg Q6H PRN Administration Nausea/Vomiting use 1st Pantoprazole Sodium 40 mg 06/15/20 21:00 06/23/20 20:14 Pantoprazole 40 Mg Tab PO 40 mg HS PASCUAL Administration Polyethylene Glycol 17 gm 06/18/20 09:00 06/24/20 08:59 Polyethylene Glycol 3350 17 Gm Packet PO Not Given DAILY PASCUAL Sodium Chloride 10 ml 06/05/20 09:00 06/24/20 08:59 Flush - Normal Saline 10 Ml Syringe IVF Not Given Q12HR PASCUAL Sodium Chloride 10 ml 06/05/20 00:45 06/20/20 00:47 Flush - Normal Saline 10 Ml Syringe IVF 10 ml PRN PRN Administration Saline Flush Tramadol HCl 50 mg 06/16/20 10:43 06/16/20 21:11 Tramadol Hcl 50 Mg Tab PO 50 mg Q12H PRN Administration Moderate Pain (4-6) - Exam General Appearance: awake alert Eye: PERRL, anicteric sclera ENT: no oropharyngeal lesions, moist mucosa Neck: supple, no JVD Heart: RRR, no murmur Respiratory: no wheezes, no rales Gastrointestinal: soft, non-tender, non-distended, normal bowel sounds Extremities - other findings: right UE edema++ Neurological: cranial nerve grossly intact, no focal deficits Psychiatric: normal affect, A&O x 3 Hosp A/P (1) MRSA bacteremia Code(s): R78.81 - BACTEREMIA; B95.62 - METHICILLIN RESIS STAPH INFCT CAUSING DISEASES CLASSD ELSWHR Status: Acute (2) Deep vein thrombosis, upper right extremity Code(s): I82.621 - ACUTE EMBOLISM AND THROMBOSIS OF DEEP VEINS OF R UP EXTREM Status: Acute (3) End-stage renal disease on hemodialysis Code(s): N18.6 - END STAGE RENAL DISEASE; Z99.2 - DEPENDENCE ON RENAL DIALYSIS Status: Chronic (4) Acute on chronic diastolic (congestive) heart failure Code(s): I50.33 - ACUTE ON CHRONIC DIASTOLIC (CONGESTIVE) HEART FAILURE Status: Resolved (5) Anxiety and depression Code(s): F41.9 - ANXIETY DISORDER, UNSPECIFIED; F32.9 - MAJOR DEPRESSIVE DISORDER, SINGLE EPISODE, UNSPECIFIED Status: Chronic (6) CAD (coronary artery disease) Code(s): I25.10 - ATHSCL HEART DISEASE OF [place] CORONARY ARTERY W/O ANG PCTRS Status: Chronic Qualifiers: Coronary Disease-Associated Artery/Lesion type: [place] artery [place] vs. transplanted heart: [place] heart (7) Diabetes type 2, controlled Code(s): E11.9 - TYPE 2 DIABETES MELLITUS WITHOUT COMPLICATIONS Status: Chronic Qualifiers: Diabetes mellitus usp insulin use: with long term acute care registered nurse use Diabetes mellitus complication status: with kidney complications Diabetes mellitus complication detail: with chronic kidney disease Chronic kidney disease stage: on chronic dialysis Qualified Code(s): E11.22 - Type 2 diabetes mellitus with diabetic chronic kidney disease; N18.6 - End stage renal disease; Z79.4 - detention (current) use of insulin; Z99.2 - Dependence on renal dialysis (8) Dyslipidemia Code(s): E78.5 - HYPERLIPIDEMIA, UNSPECIFIED Status: Chronic (9) Gout Code(s): M10.9 - GOUT, UNSPECIFIED Status: Chronic Qualifiers: Gout site: unspecified site Chronicity: chronic Presence of tophus: without tophus (10) Hypertension Code(s): I10 - ESSENTIAL (PRIMARY) HYPERTENSION Status: Chronic Qualifiers: Hypertension type: essential hypertension Qualified Code(s): I10 - Essential (primary) hypertension (11) Infection of AV graft for dialysis Code(s): T82.7XXA - INFECT/INFLM REACT D/T OTH CARDI/VASC DEV/IMPLNT/GRFT, INIT Status: Acute - Plan s/p extraction of av graft and removal of central line today and likely her tunnelled HD cath if she continues to be bacteremic per is on vanc with HD eliquis for dvt, lipitor, cymbalta, neurontin, lantus will need swing/rehab for dc plan, has severe deconditioning, agrees to go to [facility] ef of around 30%, has aicd PT to mobilize as tolerated, right UE to be elevated over pillows encourage po intake await placement. d/w , for now she will continue with her tunnelled HD cath, repeat blood cultures in 1 week to see if she has cleared up mrsa if not she will remove them.
[2020-06-24 17:34] LABS: SARS-CoV-2 MS2 Positive; SARS-CoV-2 N Gene Negative; SARS-CoV-2 S Gene Negative; SARS-CoV-2 by NAA Not Detected (NotDetected); SARS-CoV-2 orf1ab Negative
--- NOTE | 2020-06-24 18:00 | PRG ---
DATE OF SERVICE: 06/24/2020 SUBJECTIVE: A 70-year-old female being seen for end-stage renal disease. The patient denied any nausea, vomiting, or chest pain. PHYSICAL EXAMINATION: General: The patient is awake and alert. Vital Signs: Afebrile, pulse 96, breathing at 16, blood pressure 132/68. HEENT: Head normocephalic and atraumatic. Eyes intact, no ulcers. Nose intact, no ulcers. Ears intact, no ulcers. Neck: Supple. No JVD. Chest: Symmetrical and clear. Cardiovascular: Shows S1 and S2, no rub, no murmur. Gastrointestinal: Abdomen is soft, bowel sounds positive. Extremities: Show no edema or ulcers. Skin: Shows no rash or petechiae. Musculoskeletal: Shows no joint swelling or stiffness. Genitourinary: Shows no Rajan or CVA tenderness. Neurologic: Motor intact. Cranial nerves intact. LABORATORY DATA: Lab show hemoglobin 9.8. ASSESSMENT AND PLAN: 1. Stage 6 chronic kidney disease. Plan dialysis per schedule. 2. Hypertension, stable. 3. Anemia, stable. 4. Medication based on GFR appropriate. Job ID: [id number]
[2020-06-24] MEDS: Atorvastatin Calcium 20 MG TAB PO SCH (21:18)
[2020-06-24] MEDS: Lidocaine Patch Removal TOP SCH (23:00)
[2020-06-25] MEDS ORDERED: Heparin 10,000 UNITS/ 10 ML VIAL ONE (09:05)
[2020-06-25 10:08] LABS: Hemoglobin 9.2 g/dL (12.0-16.0); Mean Corpuscular HGB CONC 31.3 g/dL (32.0-36.0); Mean Corpuscular Hemoglobin 34.4 pg (27.0-31.0); Mean Platelet Volume 10.4 fL (7.4-10.4); Platelet Count 111 thou/uL (130-400); RBC Distribution Width 14.4 % (11.5-14.5); Red Blood Cell (RBC) Count 2.68 mill/uL (4.20-5.40); White Blood Cell (WBC) Count 6.8 thou/uL (4.8-10.8)
[2020-06-25 10:22] LABS: Anion Gap 16 mmol/L (10-20); BUN (Urea Nitrogen) 38 mg/dL (9.8-20.1); Calc. Creatinine Clearance 13 mL/min (70-130); Calcium 7.8 mg/dL (7.8-10.44); Carbon Dioxide 25 mmol/L (23-31); Chloride 95 mmol/L (98-107); Estimated GFR-MDRD 8; Glucose 186 mg/dL (83-110); Potassium 4.6 mmol/L (3.5-5.1); Sodium 131 mmol/L (136-145)
[2020-06-25 10:34] LABS: Band 2 % (5-11); Lymphocytes 8 % (21-51); MDiff Complete? YES; Macrocytosis MODERATE=16-30 cells (100X) (0-5/hpf); Monocytes 11 % (0-10); Neutrophil 78 % (42-75); Ovalocytes SLIGHT = 2-5 cells (100X) (0-1/hpf); Platelet Morphology Comment Appears Decreased; Polychromasia SLIGHT = 2-3 cells (100X) (0-2/hpf)
[2020-06-25 10:41] LABS: Vancomycin, Random 23.4 ug/mL (See Comment)
[2020-06-25] MEDS: Metoclopramide 10 MG/10 ML UDCUP PO SCH ×2 (10:45→12:39)
[2020-06-25] MEDS: Midodrine HCl 5 MG TAB PO SCH ×2 (10:45→14:24)
[2020-06-25] MEDS: Aluminum & Magnesium Hydroxide 60 ML, diphenhydrAMINE 150 MG, Lidocaine 2% Viscous Solu... SSW SCH ×2 (10:45→14:24)
--- NOTE | 2020-06-25 11:39 | PRG ---
DATE OF SERVICE: 06/25/2020 SUBJECTIVE: A 70-year-old female being seen for end-stage renal disease. The patient denied nausea, vomiting, or chest pain. OBJECTIVE: GENERAL: The patient is awake and alert. VITAL SIGNS: Afebrile, pulse 105, breathing at 16, blood pressure 114/76. HEENT: Head normocephalic and atraumatic. Eyes intact, no ulcers. Nose intact, no ulcers. Ears intact, no ulcers. NECK: Supple. No JVD. CHEST: Symmetrical and clear. CARDIOVASCULAR: Shows S1 and S2, no rub, no murmur. GASTROINTESTINAL: Abdomen is soft, bowel sounds positive. EXTREMITIES: Show no edema or ulcers. SKIN: Shows no rash or petechiae. MUSCULOSKELETAL: Shows no joint swelling or stiffness. GENITOURINARY: Shows no Rajan or CVA tenderness. NEUROLOGIC: Motor intact. Cranial nerves intact. LABORATORY DATA: Show hemoglobin 9.2. ASSESSMENT AND PLAN: 1. Stage 6 chronic kidney disease. Plan dialysis. 2. Hypertension, stable. 3. Anemia, stable. 4. Medication based on GFR, appropriate. Job ID: [id number]
--- NOTE | 2020-06-25 12:13 | PDOC.HOSPP ---
- Subjective Encounter Date: 06/25/20 Encounter Time: 09:00 Subjective: feels good, no sob - Objective Vital Signs & Weight: Vital Signs (12 hours) Temp Pulse Resp BP Pulse Ox 06/25/20 08:00 98.1 F 105 H 18 114/76 97 06/25/20 06:55 97.4 F L 103 H 20 158/80 H 91 L 06/25/20 04:00 97.8 F 112 H 19 111/73 91 L Weight Admit Weight 170 lb 3.136 oz Weight 176 lb Most Recent Monitor Data Heart Rate from ECG 77 NIBP 116/55 NIBP BP-Mean 75 Respiration from ECG 24 SpO2 100 I&O: 06/24/20 06/25/20 06/26/20 06:59 06:59 06:59 Intake Total 720 800 Output Total 1800 Balance -1080 800 Result Diagrams: 06/25/20 09:44 06/25/20 09:44 Additional Labs: Accuchecks 06/25/20 06/24/20 06/24/20 06:24 19:21 16:20 POC Glucose 150 H 145 H 147 H Hospitalist ROS - Medication Medications: Active Medications Generic Name Dose Route Start Last Admin Trade Name Freq PRN Reason Stop Dose Admin Acetaminophen 650 mg 06/05/20 00:35 06/21/20 10:37 Acetaminophen 650 Mg/20.3 Ml Udcup PO 650 mg Q6H PRN Administration Fever > 101 or Mild Pain Apixaban 5 mg 06/08/20 21:00 06/24/20 21:18 Apixaban 5 Mg Tab PO 5 mg BID PASCUAL Administration Atorvastatin Calcium 20 mg 06/05/20 21:00 06/24/20 21:18 Atorvastatin Calcium 20 Mg Tab PO 20 mg HS PASCUAL Administration Al Hydroxide/Mg Hydroxide 60 0 ml 06/17/20 21:00 06/25/20 10:45 ml/ Diphenhydramine HCl 150 mg SSW Not Given / Lidocaine HCl 60 ml/ ACHS PASCUAL Nystatin 6,000,000 units Docusate Sodium 100 mg 06/17/20 21:00 06/24/20 21:18 Docusate 100 Mg Cap PO 100 mg BID PASCUAL Administration Duloxetine HCl 60 mg 06/05/20 09:00 06/24/20 08:59 Duloxetine 60 Mg Cap PO 60 mg DAILY PASCUAL Administration Epoetin Yrn-epbx 10,000 unit 06/18/20 11:00 06/23/20 12:07 Epoetin Yrn-Epbx (Esrd) 10,000 Unit/Ml Vial IVP Not Given MoWeFr PASCUAL Gabapentin 200 mg 06/19/20 09:00 06/24/20 08:58 Gabapentin 100 Mg Cap PO 200 mg DAILY PASCUAL Administration Guaifenesin/Dextromethorphan 15 ml 06/05/20 00:25 06/11/20 18:22 Guaifenesin Dm 100-10/5 Ml Udcup PO 15 ml Q4H PRN Administration Cough Insulin Glargine 10 units/ 0.1 mls @ 0 mls/hr 06/05/20 09:00 06/24/20 08:58 Miscellaneous Medication SC 0.1 mls DAILY PASCUAL Administration Vancomycin HCl 1 gm/ Device 200 mls @ 200 mls/hr 06/18/20 10:30 06/18/20 12:00 IVPB 200 mls WILLCALL PASCUAL Administration Vancomycin HCl 750 mg/ Sodium 250 mls @ 250 mls/hr 06/18/20 10:30 06/21/20 10:15 Chloride IVPB 250 mls WILLCALL PASCUAL Administration Insulin Human Lispro 0 units 06/05/20 00:30 06/24/20 11:29 Humalog 300 Units/3 Ml Vial SC 3 unit .MILD SLIDING SCALE PRN Administration Mild Correctional Scale Insulin Human Lispro 0 units 06/10/20 21:27 06/18/20 21:16 Humalog 300 Units/3 Ml Vial SC 2 unit .BEDTIME SLIDING SC PRN Administration Bedtime Correctional Scale Lidocaine 1 patch 06/13/20 11:00 06/24/20 11:26 Lidocaine 5% Patch TD 1 patch 1100 PASCUAL Administration Metoclopramide HCl 5 mg 06/17/20 21:00 06/25/20 10:45 Metoclopramide 10 Mg/10 Ml Udcup PO Not Given ACHS PASCUAL Midodrine 5 mg 06/16/20 21:00 06/25/20 10:45 Midodrine Hcl 5 Mg Tab PO Not Given TID PASCUAL Miscellaneous Medication 1 each 06/13/20 23:00 06/24/20 23:00 Lidocaine Patch Removal TOP 1 each 2300 PASCUAL Administration Ondansetron HCl 4 mg 06/05/20 00:25 06/23/20 10:50 Ondansetron Pf 4 Mg/2 Ml Vial IVP 4 mg Q6H PRN Administration Nausea/Vomiting use 1st Pantoprazole Sodium 40 mg 06/15/20 21:00 06/24/20 21:18 Pantoprazole 40 Mg Tab PO 40 mg HS PASCUAL Administration Polyethylene Glycol 17 gm 06/18/20 09:00 06/24/20 08:59 Polyethylene Glycol 3350 17 Gm Packet PO Not Given DAILY PASCUAL Sodium Chloride 10 ml 06/05/20 09:00 06/25/20 10:53 Flush - Normal Saline 10 Ml Syringe IVF Not Given Q12HR PASCUAL Sodium Chloride 10 ml 06/05/20 00:45 06/20/20 00:47 Flush - Normal Saline 10 Ml Syringe IVF 10 ml PRN PRN Administration Saline Flush Tramadol HCl 50 mg 06/16/20 10:43 06/16/20 21:11 Tramadol Hcl 50 Mg Tab PO 50 mg Q12H PRN Administration Moderate Pain (4-6) - Exam General Appearance: awake alert Eye: PERRL, anicteric sclera ENT: no oropharyngeal lesions, moist mucosa Neck: supple, no JVD Heart: RRR, no murmur Respiratory: no wheezes, no rales Gastrointestinal: soft, non-tender, non-distended, normal bowel sounds Extremities: no cyanosis, 1+ LE edema Neurological: cranial nerve grossly intact, no focal deficits Psychiatric: A&O x 3 Hosp A/P (1) MRSA bacteremia Code(s): R78.81 - BACTEREMIA; B95.62 - METHICILLIN RESIS STAPH INFCT CAUSING DISEASES CLASSD ELSWHR Status: Acute (2) Deep vein thrombosis, upper right extremity Code(s): I82.621 - ACUTE EMBOLISM AND THROMBOSIS OF DEEP VEINS OF R UP EXTREM Status: Acute (3) End-stage renal disease on hemodialysis Code(s): N18.6 - END STAGE RENAL DISEASE; Z99.2 - DEPENDENCE ON RENAL DIALYSIS Status: Chronic (4) Acute on chronic diastolic (congestive) heart failure Code(s): I50.33 - ACUTE ON CHRONIC DIASTOLIC (CONGESTIVE) HEART FAILURE Status: Resolved (5) Anxiety and depression Code(s): F41.9 - ANXIETY DISORDER, UNSPECIFIED; F32.9 - MAJOR DEPRESSIVE DISORDER, SINGLE EPISODE, UNSPECIFIED Status: Chronic (6) CAD (coronary artery disease) Code(s): I25.10 - ATHSCL HEART DISEASE OF [place] CORONARY ARTERY W/O ANG PCTRS Status: Chronic Qualifiers: Coronary Disease-Associated Artery/Lesion type: [place] artery [place] vs. transplanted heart: [place] heart (7) Diabetes type 2, controlled Code(s): E11.9 - TYPE 2 DIABETES MELLITUS WITHOUT COMPLICATIONS Status: Chronic Qualifiers: Diabetes mellitus penitentiary insulin use: with middle or intermediate school principal use Diabetes mellitus complication status: with kidney complications Diabetes mellitus complication detail: with chronic kidney disease Chronic kidney disease stage: on chronic dialysis Qualified Code(s): E11.22 - Type 2 diabetes mellitus with diabetic chronic kidney disease; N18.6 - End stage renal disease; Z79.4 - manager intermediate (current) use of insulin; Z99.2 - Dependence on renal dialysis (8) Dyslipidemia Code(s): E78.5 - HYPERLIPIDEMIA, UNSPECIFIED Status: Chronic (9) Gout Code(s): M10.9 - GOUT, UNSPECIFIED Status: Chronic Qualifiers: Gout site: unspecified site Chronicity: chronic Presence of tophus: without tophus (10) Hypertension Code(s): I10 - ESSENTIAL (PRIMARY) HYPERTENSION Status: Chronic Qualifiers: Hypertension type: essential hypertension Qualified Code(s): I10 - Essential (primary) hypertension (11) Infection of AV graft for dialysis Code(s): T82.7XXA - INFECT/INFLM REACT D/T OTH CARDI/VASC DEV/IMPLNT/GRFT, INIT Status: Acute - Plan s/p extraction of av graft and removal of central line, might likely need r emoval of her tunnelled HD cath if she continues to be bacteremic per is on vanc with HD eliquis for dvt, lipitor, cymbalta, neurontin, lantus will need swing/rehab for dc plan, has severe deconditioning, agrees to go to [facility] ef of around 30%, has aicd PT to mobilize as tolerated, right UE to be elevated over pillows encourage po intake await placement, may dc anytime if approved d/w , for now she will continue with her tunnelled HD cath, repeat blood cultures in 1 week to see if she has cleared up mrsa if not she will remove them.
[2020-06-25] MEDS: EPOETIN ALFA-EPBX (ESRD) 10,000 UNIT/ML VIAL IVP SCH (12:31)
[2020-06-25] MEDS: Docusate 100 MG CAP PO SCH (12:38)
[2020-06-25] MEDS: Polyethylene Glycol 3350 17 GM Packet PO SCH (12:38)
[2020-06-25] MEDS: Gabapentin 100 MG CAP PO SCH (12:40)
[2020-06-25] MEDS: Apixaban 5 MG TAB PO SCH (12:40)
[2020-06-25] MEDS: DULoxetine 60 MG CAP PO SCH (12:40)
[2020-06-25] MEDS: Insulin Glargine 10 UNITS in Pre-Filled Syringe 1 EACH SC SCH (12:40)
[2020-06-25] MEDS: Lidocaine 5% Patch TD SCH (14:24)
[2020-06-25 14:29] VITALS: BP 118/78; TEMP 98
--- NOTE | 2020-06-25 14:33 | DIS ---
DATE OF ADMISSION: 06/04/2020 DATE OF DISCHARGE: 06/25/2020 DISCHARGE DISPOSITION: [facility]. PRIMARY DISCHARGE DIAGNOSES: Methicillin-resistant Staphylococcus aureus bacteremia; right upper extremity deep venous thrombosis; end-stage renal disease, on hemodialysis; acute on chronic congestive heart failure exacerbation with systolic and diastolic dysfunction; deconditioning; failure to thrive; moderate protein malnutrition; anxiety; depression; coronary artery disease; diabetes mellitus type 2; dyslipidemia; gout; hypertension; left upper extremity AV graft methicillin-resistant Staphylococcus aureus infection, status post removal. PROCEDURES DONE DURING HOSPITALIZATION: The patient has had ultrasound of left upper extremity done showed findings suggestive of perigraft infection with pus coming to the surface at the location. There is also collection adjacent to the graft measuring up to 2 cm in size. Chest x-ray done on admission showed no acute cardiopulmonary abnormality. The patient has had excision of infected left upper arm AV graft done by Dr. Garcia on 06/04/2020. Echo with 2D Doppler showed ejection fraction of 30% to 35%, with diastolic dysfunction, moderate aortic regurgitation. Ultrasound venous Doppler of lower extremities done showed no evidence of DVT. Ultrasound venous Doppler of right upper extremity done was positive for nonocclusive DVT of right axillary vein, nonocclusive superficial venous thrombosis of the right basilic vein and right cephalic vein in the arm and forearm. Arterial Doppler of upper extremity done showed no evidence of subclavian artery stenosis. Blood cultures have grown MRSA bacteremia from 06/04/2020. The patient has had nearly 7 blood cultures done serially, all of them have been positive for MRSA. Wound cultures from the graft have grown MRSA as well. H and H of 9 and 29, platelet count 111, white count of 6.8 on the day of discharge, MCV 110. Discharge BUN and creatinine are 38 and 5.0, albumin 2.8. COVID-19 PCR was not detected on 06/24/2020. HBS antigen was nonreactive. DISCHARGE MEDICATIONS: 1. Vancomycin sliding scale with hemodialysis. 2. Cymbalta 60 mg p.o. daily. 3. Iron 28 mg p.o. daily. 4. Multivitamin 1 tablet once daily. 5. Probiotic one capsule daily. 6. Protonix 40 mg p.o. daily. 7. Simvastatin 40 mg p.o. at bedtime. 8. Toprol-XL 25 mg twice daily. 9. Colace 100 mg twice daily. 10. Eliquis 5 mg p.o. twice daily for right upper extremity DVT. 11. Lantus 10 units subcu daily. 12. Lidocaine 5% transdermal patch daily. 13. MiraLAX 17 g daily. 14. Gabapentin 200 mg p.o. daily. 15. Midodrine 5 mg p.o. three times daily. 16. Ultram 50 mg twice daily p.r.n. ALLERGIES: TO SULFA, LATEX, AND ALLOPURINOL. INPATIENT CONSULTS: Dr. Schaffer for Nephrology, Dr. Carvajal for Infectious Disease, Dr. Garcia for General surgery, Dr. Carvajal for Infectious Disease. DISCHARGE PLAN: The patient to follow up with Dr. Carvajal in 2 to 3 weeks. She needs to follow up with Jose in 2 weeks. Serial blood cultures every 7-10 days with results faxed to . BRIEF COURSE DURING HOSPITALIZATION: The patient initially got admitted on the 05 of June with complaints of generalized weakness. The patient had a temperature of 103. Her left upper extremity AV graft site was tender to touch and was suspicious for abscess around the site with possible infection of the graft. She has had consultation with Dr. Garcia. Her left AV graft was removed. Her blood and wound cultures from the AV graft site, all of which grew MRSA. The patient was on vancomycin with hemodialysis. She has had generalized decline in her physical condition. At the time of discharge, she is tolerating oral solid diet. She has taken a few steps with physical therapy. She has been counseled to work with physical therapy at rehab prior to going home to live with her daughter. Her medications were optimized during her stay here. The plan is to have a repeat blood culture in 1 week. If this were to grow MRSA again, her right hemodialysis catheter needs to be removed. The patient needs to be referred to Dr. Garcia if her repeat blood culture on the or around that time grew MRSA again. The patient needs serial blood cultures drawn every 7 to 10 days. The plan is to remove her AICD if she were to be positive for cultures even after removing her dialysis catheter. Her overall prognosis is guarded. The patient has had Palliative Care consultation here as well. She was actually do not attempt to resuscitate and plans were for possible hospice, but then the patient got better and family decided to make her full code again. A total of 35 minutes was spent on discharge plan. Please see a [id number] documentation for the day of discharge on [employer]. Job ID: [id number] [facility]
== END 2020-06-25 15:13 | DRG 252 ==
LOC: ERS 15:32 → SDC/OP 21:12 → CCU 21:13 → 2NO 06-09 16:53 → T4-B 06-21 23:49
PROVIDERS: ADMIT Internal Medicine; ATTEND Internal Medicine Nephrology
PROC: 03BY0ZZ Excision of Upper Artery, Open Approach (ICD-10-PCS; principal; 2020-06-04)
PROC: 5A1945Z Respiratory Ventilation, 24-96 Consecutive Hours (ICD-10-PCS; 2020-06-04)
PROC: 06HY33Z Insertion of Infusion Device into Lower Vein, Percutaneous Approach (ICD-10-PCS; 2020-06-04)
PROC: 3E033XZ Introduction of Vasopressor into Peripheral Vein, Percutaneous Approach (ICD-10-PCS; 2020-06-04)
PROC: 5A1D70Z Performance of Urinary Filtration, Intermittent, Less than 6 Hours Per Day (ICD-10-PCS; 2020-06-05)
DX: T82.7XXA Infection and inflammatory reaction due to other cardiac and vascular devices, implants and grafts, initial encounter (principal); N18.6 End stage renal disease; I50.43 Acute on chronic combined systolic (congestive) and diastolic (congestive) heart failure; I49.01 Ventricular fibrillation; A41.02 Sepsis due to Methicillin resistant Staphylococcus aureus; R65.21 Severe sepsis with septic shock; J96.01 Acute respiratory failure with hypoxia; E44.0 Moderate protein-calorie malnutrition; I13.2 Hypertensive heart and chronic kidney disease with heart failure and with stage 5 chronic kidney disease, or end stage renal disease; E87.1 Hypo-osmolality and hyponatremia; E87.2 Acidosis; L03.114 Cellulitis of left upper limb; C18.9 Malignant neoplasm of colon, unspecified; C77.9 Secondary and unspecified malignant neoplasm of lymph node, unspecified; I42.0 Dilated cardiomyopathy; I82.621 Acute embolism and thrombosis of deep veins of right upper extremity; E27.40 Unspecified adrenocortical insufficiency; Z20.828 Contact with and (suspected) exposure to other viral communicable diseases; F41.9 Anxiety disorder, unspecified; F32.9 Major depressive disorder, single episode, unspecified; I25.10 Atherosclerotic heart disease of native coronary artery without angina pectoris; E11.22 Type 2 diabetes mellitus with diabetic chronic kidney disease; E78.5 Hyperlipidemia, unspecified; M10.9 Gout, unspecified; Y83.2 Surgical operation with anastomosis, bypass or graft as the cause of abnormal reaction of the patient, or of later complication, without mention of misadventure at the time of the procedure; H54.8 Legal blindness, as defined in USA; K21.9 Gastro-esophageal reflux disease without esophagitis; D63.1 Anemia in chronic kidney disease; I25.5 Ischemic cardiomyopathy; E11.40 Type 2 diabetes mellitus with diabetic neuropathy, unspecified; E88.09 Other disorders of plasma-protein metabolism, not elsewhere classified; E11.51 Type 2 diabetes mellitus with diabetic peripheral angiopathy without gangrene; I48.0 Paroxysmal atrial fibrillation; K59.00 Constipation, unspecified; R11.0 Nausea; E87.5 Hyperkalemia; E86.9 Volume depletion, unspecified; E11.65 Type 2 diabetes mellitus with hyperglycemia; E83.39 Other disorders of phosphorus metabolism; Z88.2 Allergy status to sulfonamides; Z90.49 Acquired absence of other specified parts of digestive tract; Z99.2 Dependence on renal dialysis; Z68.24 Body mass index [BMI] 24.0-24.9, adult; Z88.8 Allergy status to other drugs, medicaments and biological substances; Z91.040 Latex allergy status; Z79.899 Other long term (current) drug therapy; Z79.82 Long term (current) use of aspirin; Z79.02 Long term (current) use of antithrombotics/antiplatelets; Z95.810 Presence of automatic (implantable) cardiac defibrillator; Z98.49 Cataract extraction status, unspecified eye; I25.2 Old myocardial infarction; Z95.5 Presence of coronary angioplasty implant and graft
CPT/HCPCS: 36415; 36416; 36556; 71045; 80048; 80053; 80076; 80202; 82274; 82330; 82533; 82553; 82803; 82805; 83605; 83735; 84100; 84484; 85007; 85025; 85027; 87040; 87070; 87077; 87149; 87186; 87205; 87340; 87635; 90935; 93005; 93010; 93306; 93312; 93923; 93931; 93970; 94003; 96361; 96365; 96366; 96367; 96368; 96375; 96376; G0257; J0282; J0692; J1644; J1720; J1815; J2060; J2250; J2270; J2370; J2405; J2543; J2704; J2720; J2930; J3010; J3370; J3475; J3490; J7050; P9045; P9047; Q0163; Q5105; S0020; U0003

== ENCOUNTER 2020-06-28 17:49 | Inpatient (IN) | payer MEDICARE, MEDICAID ==
[~2020-06-28 17:49] MED LIST changes: -Amiodarone 150 MG/3 ML VIAL ONE; -Calcium Chloride 1 GM/10 ML Abboject SYRINGE ONE; +EPINEPHrine 1 MG/10 ML Abboject SYRINGE ONE; -Lidocaine 1% PF 5 ML VIAL ONE; -PHENYLEPHRINE-NS 100 MCG/ML 10 ML SYRINGE ONE; -Rocuronium Bromide 10 MG/ML (10ML VIAL) ONE
[2020-06-28] MEDS ORDERED: Fentanyl 100 MCG/2 ML VIAL ONE ×2 (17:52→20:09)
[2020-06-28 18:25] LABS: Actual Bicarbonate (HCO3a) 17.8 mEq/L (22-28); Analyzer IN Cardio ER; Base Excess (BEa) -7.6 mEq/L (-2.0 to +3.0); CO2 Tension 35.6 mmHg (35.0-45.0); Calcium, Ionized (arterial) 1.05 mmol/L (1.12-1.30); Carboxyhemoglobin (COHb) 0.6 gm% (0.0-3.0); Hemoglobin (Hb) 10.9 g/dL (12.0-16.0); O2 Tension (PaO2), arterial 105.9 mmHg (> 70.0); Potassium - ABG Lab 4.99 mmol/L (3.70-5.30); pH, Arterial 7.32 (7.35-7.45)
[2020-06-28 18:29] LABS: Puncture Site LRA
--- NOTE | 2020-06-28 18:51 | RAD ---
PORTABLE CHEST: History: Weakness, altered mental status, internal defibrillator fired six times. Comparison: 06-04-2020 FINDINGS: Endotracheal and NG tubes are in satisfactory position. Heart size is enlarged. Internal defibrillato r device is again noted. Left sided HemoSplit type catheter is again noted. Pulmonary vessels are eng orged with increased parahilar markings suggesting more of edema than an infiltrative process. IMPRESSION: 1. Endotracheal and NG tubes in satisfactory position. 2. Cardiomegaly with pulmonary vascular engorgement, increased parahilar markings, more likely edema than infiltrates. POS: OFF
[2020-06-28 19:09] LABS: Mean Corpuscular HGB CONC 30.9 g/dL (32.0-36.0); Mean Corpuscular Hemoglobin 34.4 pg (27.0-31.0); Platelet Count 162 thou/uL (130-400); White Blood Cell (WBC) Count 14.9 thou/uL (4.8-10.8)
[2020-06-28 19:25] LABS: INR-International Normal Ratio 2.4; Prothrombin Time 26.9 sec (12.0-14.7)
[2020-06-28 19:26] LABS: PTT 68.4 sec (22.9-36.1)
[2020-06-28 19:31] LABS: Anisocytosis SLIGHT = 6-15 cells (100X) (0-5/hpf); Band 20 % (5-11); Eosinophils 1 % (0-10); Hypochromia SLIGHT = 6-15 cells (100X) (0-5/hpf); Large Platelets SLIGHT; Lymphocytes 4 % (21-51); MDiff Complete? YES; Macrocytosis MODERATE=16-30 cells (100X) (0-5/hpf); Monocytes 15 % (0-10); Neutrophil 57 % (42-75); Ovalocytes SLIGHT = 2-5 cells (100X) (0-1/hpf); Platelet Morphology Comment Appears Adequate; Polychromasia MODERATE = 3-4 cells (100X) (0-2/hpf); Reactive Lymphocytes 3 % (0-10); Schistocytes SLIGHT = 2-5 cells (100X) (0-1/hpf); Tear Drops SLIGHT = 2-5 cells (100X) (0-1/hpf)
[2020-06-28 19:35] LABS: ALT (SGPT) 8 U/L (8-55); AST (SGOT) 23 U/L (5-34); Albumin 2.5 g/dL (3.4-4.8); Alkaline Phosphatase 152 U/L (40-110); Anion Gap 27 mmol/L (10-20); BUN (Urea Nitrogen) 53 mg/dL (9.8-20.1); Bilirubin, Total 0.8 mg/dL (0.2-1.2); Calc. Creatinine Clearance 0 mL/min (70-130); Calcium 7.9 mg/dL (7.8-10.44); Carbon Dioxide 15 mmol/L (23-31); Chloride 94 mmol/L (98-107); Estimated GFR-MDRD 7; Globulin 3.8 g/dL (2.4-3.5); Glucose 247 mg/dL (83-110); Potassium 5.2 mmol/L (3.5-5.1); Protein, Total 6.3 g/dL (6.0-8.3); Sodium 131 mmol/L (136-145)
[2020-06-28 20:13] LABS: CKMB 1.8 ng/mL (0-6.6)
[2020-06-28] MEDS ORDERED: Lidocaine 1% w/Epinephrine 1:100K 20 ML VIAL ONE (20:15)
[2020-06-28] MEDS ORDERED: Cefepime 2 GM VIAL ONE (20:53)
[2020-06-28 21:16] LABS: Bilirubin Negative (Negative); Blood, Urine 2+ (Negative); Clarity Extra Turbid (Clear); Glucose, Urine (Dipstick) 70 mg/dL (Negative); Ketone, Urine Negative (Negative); Leukocyte 250 Leu/uL (Negative); Nitrite Negative (Negative); Protein, Urine (Dipstick) 20 mg/dL (Neg-Trace); Specific Gravity, Urine 1.024 (1.002-1.036); Urobilinogen Normal mg/dL (Less than 2)
[2020-06-28] MEDS ORDERED: Phenylephrine 10 MG/NS 250 ML 250 ML IVPB PRN (21:18)
[2020-06-28] MEDS ORDERED: Electrolyte Replacement Protoc 1 EACH EACH IVPB PRN (21:18)
[2020-06-28] MEDS ORDERED: Norepinephrine 8 MG/0.9% NS 250 ML ONE (21:19)
[2020-06-28] MEDS ORDERED: EPINEPHrine 1 MG/10 ML Abboject SYRINGE ONE ×2 (21:24→21:25)
[2020-06-28 21:28] LABS: RBC/HPF 21-50 HPF (0-3)
[2020-06-28 21:29] LABS: Bacteria/HPF Rare-Few HPF (None Seen); Squamous Epithelial 21-50 HPF (0-3); WBC/HPF 21-50 HPF (0-3)
[2020-06-28] MEDS ORDERED: Vancomycin 1 GM in Premix Bag 1 BAG IVPB SCH ×2 (21:30→23:45)
[2020-06-28] MEDS ORDERED: Heparin 25,000 units/D5W 500 ML IVPB SCH (21:30)
[2020-06-28] MEDS ORDERED: Heparin 10,000 UNITS/ 10 ML VIAL SLOW IVP SCH (21:30)
[2020-06-28] MEDS ORDERED: Ventilator Sedation Protocol 1 EACH FS SCH (21:30)
--- NOTE | 2020-06-28 21:36 | PDOC.HHP ---
Hospitalist HPI - History of Present Illness Ventricular tachycardia. Unresponsiveness History of Present Illness: 70-year-old woman with a prior history of end-stage renal disease on hemodialysis, history of chronic systolic heart failure with an ejection fraction of 30 to 35%, status post AICD was transferred from the residential to the emergency department because patient reported feeling unwell. Per report, patient was found to have ventricular tachycardia. EMS also reported patient AICD fired 6 times. Patient was intubated for respiratory failure and transferred to [facility] ED where patient was noted to be hypotensive. He was started on amiodarone drip for ventricular tachycardia, and Levophed drip for hypotension. Patient was needing 2 vasopressors in the ED to maintain SBP greater than 90%. She was on fentanyl drip and therefore unresponsive and could not provide any history. Patient was recently discharged from hospitalization here. She was diagnosed with MRSA bacteremia secondary to infected left AV graft. According to report the AV graft was removed and temporary dialysis catheter placed in the left subclavian. According to report 7 different blood cultures yielded MRSA. No negative blood culture yet. She was discharged with vancomycin to be given with dialysis. She was also found to have DVT in the right upper extremity. BMP shows metabolic acidosis, and mild hyperkalemia. Last dialysis is unclear. Patient given broad-spectrum antibiotics-IV cefepime and vancomycin, blood cultures taken. She is admitted for further management. Hospitalist ROS - Review of Systems ROS unobtainable: due to mental status - Medication Medications: Medication Instructions Recorded Confirmed Type Pantoprazole [Protonix] 40 mg PO DAILY 01/01/18 06/28/20 History DULoxetine [Cymbalta] 1 tab PO DAILY 11/06/19 06/28/20 History Iron 28 mg PO DAILY 11/06/19 06/28/20 History Lactobacillus Acidophilus 1 tab PO DAILY 11/06/19 06/28/20 History [Probiotic] Metoprolol Succinate [Toprol XL] 1 tab PO BID 11/06/19 06/28/20 History Multivitamin [Multivitamins] 1 tab PO DAILY 11/06/19 06/28/20 History Simvastatin 1 tab PO HS 11/06/19 06/28/20 History Apixaban [Eliquis] 5 mg PO BID #60 tab 06/25/20 06/28/20 Rx Docusate [Colace] 100 mg PO BID #60 cap 06/25/20 06/28/20 Rx Insulin Glargine [Lantus Vial] 10 units SC DAILY #1 vial 06/25/20 06/28/20 Rx Lidocaine 5% Patch [Lidoderm 5% 1 patch TD 1100 #10 patch 06/25/20 06/28/20 Rx Patch] Midodrine HCl [ProAmatine] 5 mg PO TID #90 tab 06/25/20 06/28/20 Rx Polyethylene Glycol 3350 [Miralax] 17 gm PO DAILY #30 pk 06/25/20 06/28/20 Rx traMADol HCl [Ultram] 50 mg PO Q12H PRN #20 tab 06/25/20 06/28/20 Rx Gabapentin [Neurontin] 300 mg PO BID 06/28/20 06/28/20 History Hospitalist History - Past Medical History Other Medical History: ESRD, insulin-dependent diabetes, hypertension, chronic systolic heart failure, MRSA bacteremia, DVT of upper extremity. - Past Surgical History Other Surgical History: AICD, temporary dialysis catheter placement, left arm aVF, for cardiac stent, C- section, tonsillectomy. - Family History Family History: reports: no pertinent history - Social History Smoking Status: Never smoker Alcohol: reports: None Drugs: reports: none - Exam General - other findings: Unresponsive. Intubated. Eye: PERRL, anicteric sclera ENT: normocephalic atraumatic ENT - other findings: ET tube and NG tube in place Neck: supple, symmetric, no JVD Heart: RRR (Tachycardic), no murmur, no gallops Respiratory: CTAB, no wheezes, no rales Gastrointestinal: soft, non-tender, non-distended Extremities: no cyanosis, 2+ LE edema (Bilateral upper extremities and lower extremities) Skin - other findings: Left AV graft wound with wound VAC applied. Neurological - other findings: Unresponsive, open eyes spontaneously, withdraws to touch. Psychiatric - other findings: Unresponsive. Hospitalist Results - Labs Result Diagrams: 06/29/20 03:42 06/29/20 03:42 Lab results: WBC 14.9 thou/uL (4.8-10.8) H 06/28/20 18:53 Hgb 11.0 g/dL (12.0-16.0) L 06/28/20 18:53 Hct 35.5 % (36.0-47.0) L 06/28/20 18:53 MCV 111.0 fL (78.0-98.0) H 06/28/20 18:53 Plt Count 162 thou/uL (130-400) 06/28/20 18:53 Band Neuts % (Manual) 20 % (5-11) H 06/28/20 18:53 ABG pH 7.32 (7.35-7.45) L 06/28/20 18:22 ABG pCO2 35.6 mmHg (35.0-45.0) 06/28/20 18:22 ABG pO2 105.9 mmHg (> 70.0) H 06/28/20 18:22 Sodium 131 mmol/L (136-145) L 06/28/20 18:53 Potassium 5.2 mmol/L (3.5-5.1) H 06/28/20 18:53 Chloride 94 mmol/L (98-107) L 06/28/20 18:53 Carbon Dioxide 15 mmol/L (23-31) L 06/28/20 18:53 BUN 53 mg/dL (9.8-20.1) H 06/28/20 18:53 Creatinine 6.19 mg/dL (0.6-1.1) H 06/28/20 18:53 Glucose 247 mg/dL (83-110) H 06/28/20 18:53 Calcium 7.9 mg/dL (7.8-10.44) 06/28/20 18:53 Total Bilirubin 0.8 mg/dL (0.2-1.2) 06/28/20 18:53 AST 23 U/L (5-34) 06/28/20 18:53 ALT 8 U/L (8-55) 06/28/20 18:53 Alkaline Phosphatase 152 U/L (40-110) H 06/28/20 18:53 CK-MB (CK-2) 1.8 ng/mL (0-6.6) 06/28/20 18:53 Troponin I 0.038 ng/mL (< 0.028) H 06/28/20 18:53 Serum Total Protein 6.3 g/dL (6.0-8.3) 10/12/20 18:53 Albumin 2.5 g/dL (3.4-4.8) L 06/28/20 18:53 Urine Ketones Negative mg/dL (Negative) 06/28/20 19:11 Urine Blood 2+ (Negative) A 06/28/20 19:11 Urine Nitrite Negative (Negative) 06/28/20 19:11 Ur Leukocyte Esterase 250 Narda/uL (Negative) A 06/28/20 19:11 Urine RBC 21-50 HPF (0-3) A 06/28/20 19:11 Urine WBC 21-50 HPF (0-3) A 06/28/20 19:11 Ur Squamous Epith Cells 21-50 HPF (0-3) A 06/28/20 19:11 Urine Bacteria Rare-Few HPF (None Seen) 06/28/20 19:11 - Radiology Interpretation Chest x-ray Status: report reviewed by me (Cardiomegaly with pulmonary vascular congestion.) Hospitalist H&P A/P - Problem (1) Ventricular tachycardia Code(s): I47.2 - VENTRICULAR TACHYCARDIA Status: Acute Assessment and Plan: EKG on presentation shows wide complex tachycardia. Not sure if patient had true ventricular tachycardia. Whichever case patient was unstable and there was report his AICD fired multiple times. Plan: Continue amiodarone drip started in the ED. Cardiology consult. Anticoagulation with heparin drip. Optimize electrolytes. (2) MRSA bacteremia Code(s): R78.81 - BACTEREMIA; B95.62 - METHICILLIN RESIS STAPH INFCT CAUSING DISEASES CLASSD ELSWHR Status: Acute Assessment and Plan: History of persistent MRSA bacteremia. Presence of AICD. Plan: Patient should benefit from GENET but currently unstable for any procedure. Cardiology consult. Continue vancomycin Added IV cefepime to broaden coverage until blood culture results. Follow cultures. Infectious disease consult. (3) DVT of upper extremity (deep vein thrombosis) Code(s): I82.629 - ACUTE EMBOLISM AND THROMBOSIS OF DEEP VN UNSP UP EXTREM Status: Acute Assessment and Plan: Hold apixaban. Start heparin drip. (4) Cardiogenic shock Code(s): R57.0 - CARDIOGENIC SHOCK Status: Acute Assessment and Plan: Secondary to ventricular tachycardia/wide complex tachycardia in the context of severe LV dysfunction. Plan: Phenylephrine drip to maintain MAP. Cardiology consult. Little room for IV hydration given pulmonary vascular congestion and history of ESRD. (5) Acute on chronic systolic heart failure Code(s): I50.23 - ACUTE ON CHRONIC SYSTOLIC (CONGESTIVE) HEART FAILURE Status: Acute Assessment and Plan: Check x-ray shows pulmonary congestion. Hemodialysis per nephrology. (6) Diabetes mellitus type 2 in obese Code(s): E11.69 - TYPE 2 DIABETES MELLITUS WITH OTHER SPECIFIED COMPLICATION; E66.9 - OBESITY, UNSPECIFIED Status: Acute Assessment and Plan: We will treat with glucose monitoring and insulin sliding scale. (7) Infection of AV graft for dialysis Code(s): T82.7XXA - INFECT/INFLM REACT D/T OTH CARDI/VASC DEV/IMPLNT/GRFT, INIT Status: Acute Assessment and Plan: Wound VAC in place. Antibiotics as above. Consult to wound care team. (8) End-stage renal disease on hemodialysis Code(s): N18.6 - END STAGE RENAL DISEASE; Z99.2 - DEPENDENCE ON RENAL DIALYSIS Status: Chronic Assessment and Plan: Consulted nephrology for hemodialysis to optimize pH and electrolytes. - Plan Plan: Overall patient has poor prognosis. I spoke to the daughter Katerine at [phone] and discussed prognosis. She was made aware patient prognosis poor. She has agreed to make patient DNR. We will place a consult for palliative care to evaluate for goals of care discussions. Critical care time spent managing was about 42 minutes.
[2020-06-28] MEDS ORDERED: Propofol BOLUS 1,000 MG/100 ML VIAL IV PRN (21:45)
[2020-06-28] MEDS ORDERED: Propofol 1,000 MG/100 ML VIAL IV PRN (21:45)
[2020-06-28] MEDS ORDERED: Lorazepam 2 MG/ML VIAL SLOW IVP PRN (21:45)
[2020-06-28] MEDS ORDERED: Fentanyl BOLUS 250 ML IVPB PRN (21:45)
[2020-06-28] MEDS ORDERED: Morphine 2 MG/ML VIAL SLOW IVP PRN (21:45)
[2020-06-28] MEDS ORDERED: DISCONTINUE PREVIOUS NARCOTIC PAIN MEDICATIONS AND BENZODIAZEPINES FS SCH (21:45)
[2020-06-28 21:51] LABS: Platelet Count 157 thou/uL (130-400)
--- NOTE | 2020-06-28 22:03 | CT ---
CT OF BRAIN PERFORMED WITHOUT CONTRAST ENHANCEMENT: Date: 06/28/2020 HISTORY: Altered mental status. FINDINGS: The ventricular and cisternal system shows some mild generalized atrophy, fairly age-appropriate. The re are no signs of intracerebral hemorrhage or extra-axial fluid collections. The mastoid air cells a re clear. There are mucosal changes within the maxillary and ethmoid air cells. IMPRESSION: No acute intracranial abnormalities. POS: OFF
[2020-06-28] MEDS ORDERED: Dextrose 5% in Water 1,000 ML IV PRN (22:10)
[2020-06-28] MEDS ORDERED: Dextrose 50% Abboject 50 ML SYRINGE SLOW IVP PRN (22:10)
--- NOTE | 2020-06-28 22:13 | PDOC.FMACP ---
Advance Care Planning - Problem (1) Ventricular tachycardia Status: Acute Code(s): I47.2 - VENTRICULAR TACHYCARDIA (2) MRSA bacteremia Status: Acute Code(s): R78.81 - BACTEREMIA; B95.62 - METHICILLIN RESIS STAPH INFCT CAUSING DISEASES CLASSD ELSWHR (3) DVT of upper extremity (deep vein thrombosis) Status: Acute Code(s): I82.629 - ACUTE EMBOLISM AND THROMBOSIS OF DEEP VN UNSP UP EXTREM (4) Cardiogenic shock Status: Acute Code(s): R57.0 - CARDIOGENIC SHOCK (5) Acute on chronic systolic heart failure Status: Acute Code(s): I50.23 - ACUTE ON CHRONIC SYSTOLIC (CONGESTIVE) HEART FAILURE (6) Diabetes mellitus type 2 in obese Status: Acute Code(s): E11.69 - TYPE 2 DIABETES MELLITUS WITH OTHER SPECIFIED COMPLICATION; E66.9 - OBESITY, UNSPECIFIED (7) Infection of AV graft for dialysis Status: Acute Code(s): T82.7XXA - INFECT/INFLM REACT D/T OTH CARDI/VASC DEV/IMPLNT/GRFT, INIT (8) End-stage renal disease on hemodialysis Status: Chronic Code(s): N18.6 - END STAGE RENAL DISEASE; Z99.2 - DEPENDENCE ON RENAL DIALYSIS - Note Summary: Advanced Care Planning was discussed. The diagnosis, prognosis and goals of care were discussed. Appropriate forms and documentation to accomplish the goals of care were discussed. All questions were answered. The Palliative Care Team will be engaged to assist with completion of any outstanding forms that are needed. Patient's daughter Katerine has made patient DNR. Patient has no living will. Time Spent (mins): 18
[2020-06-28] MEDS ORDERED: Vancomycin HCl 1.5 GM in Sodium Chloride 0.9% 250 ML 300 ML IVPB SCH (22:30)
[2020-06-28] MEDS ORDERED: Vancomycin HCl 500 MG in Sodium Chloride 0.9% 100 ML IVPB SCH (23:45)
[2020-06-28] MEDS ORDERED: HOLD VANCOMYCIN FOR LEVEL >20 FS SCH (23:45)
[2020-06-28] MEDS ORDERED: Vancomycin HCl 750 MG in Sodium Chloride 0.9% 250 ML 250 ML IVPB SCH (23:45)
[2020-06-28] MEDS ORDERED: Vancomycin HCl 1.25 GM in Sodium Chloride 0.9% 250 ML 250 ML IVPB SCH (23:45)
[2020-06-29 00:02] LABS: Glucose 333 mg/dL (83-110)
[2020-06-29 00:23] VITALS: BMI 29.7
[2020-06-29] MEDS: HumaLOG 300 UNITS/3 ML VIAL SC PRN ×5 (00:26→21:33)
[2020-06-29] MEDS: Amiodarone 450 MG in Dextrose 5% in Water 250 ML IVPB SCH ×2 (01:32→15:04)
[2020-06-29] MEDS: fentaNYL Citrate/PF 2,000 MCG in Sodium Chloride 0.9% 60 ML IV SCH ×2 (04:09→21:36)
[2020-06-29] MEDS: Norepinephrine 8 MG/0.9% NS 250 ML IVPB SCH ×2 (04:15→15:08)
[2020-06-29 04:58] LABS: ALT (SGPT) 8 U/L (8-55); AST (SGOT) 21 U/L (5-34); Albumin 2.5 g/dL (3.4-4.8); Alkaline Phosphatase 146 U/L (40-110); Anion Gap 23 mmol/L (10-20); BUN (Urea Nitrogen) 56 mg/dL (9.8-20.1); Bilirubin, Total 0.7 mg/dL (0.2-1.2); Calc. Creatinine Clearance 10 mL/min (70-130); Calcium 7.4 mg/dL (7.8-10.44); Carbon Dioxide 18 mmol/L (23-31); Chloride 95 mmol/L (98-107); Estimated GFR-MDRD 6; Globulin 3.6 g/dL (2.4-3.5); Glucose 312 mg/dL (83-110); Potassium 5.1 mmol/L (3.5-5.1); Protein, Total 6.1 g/dL (6.0-8.3); Sodium 131 mmol/L (136-145)
[2020-06-29 05:07] LABS: Anisocytosis SLIGHT = 6-15 cells (100X) (0-5/hpf); Band 4 % (5-11); Hemoglobin 10.5 g/dL (12.0-16.0); Lymphocytes 9 % (21-51); MDiff Complete? YES; Macrocytosis SLIGHT = 6-15 cells (100X) (0-5/hpf); Mean Corpuscular HGB CONC 31.4 g/dL (32.0-36.0); Mean Corpuscular Hemoglobin 33.7 pg (27.0-31.0); Mean Platelet Volume 11.2 fL (7.4-10.4); Monocytes 15 % (0-10); Myelocyte 1 % (0-0); Neutrophil 71 % (42-75); Platelet Count 166 thou/uL (130-400); RBC Distribution Width 16.2 % (11.5-14.5); Red Blood Cell (RBC) Count 3.13 mill/uL (4.20-5.40); White Blood Cell (WBC) Count 13.5 thou/uL (4.8-10.8)
[2020-06-29 07:07] LABS: PTT Greater than 250.0 sec (22.9-36.1)
[2020-06-29] MEDS ORDERED: Heparin 10,000 UNITS/ 10 ML VIAL ONE (09:15)
--- NOTE | 2020-06-29 10:24 | PDOC.HOSPP ---
- Subjective Encounter Date: 06/29/20 Encounter Time: 09:00 Subjective: Patient seen and examined. No overnight events, patient's blood pressure has improved, currently patient is off on Levophed drip - Objective Vital Signs & Weight: Vital Signs (12 hours) Temp Pulse Resp BP Pulse Ox 06/29/20 08:02 87 06/29/20 08:00 18 99 06/29/20 07:00 98.5 F 06/29/20 06:00 18 06/29/20 04:00 98.9 F 18 06/29/20 02:33 96 134/73 06/29/20 02:00 18 06/29/20 00:14 92 123/69 06/29/20 00:00 98.7 F 18 06/28/20 23:00 98.2 F 06/28/20 22:45 18 99 06/28/20 22:33 18 Weight Admit Weight 178 lb 12.718 oz Weight 178 lb 12.718 oz Most Recent Monitor Data Heart Rate from ECG 83 NIBP 149/76 NIBP BP-Mean 100 Respiration from ECG 18 SpO2 100 I&O: 06/28/20 06/29/20 06/30/20 06:59 06:59 06:59 Intake Total 1195 Output Total 0 Balance 1195 Result Diagrams: 06/29/20 03:42 06/29/20 03:42 Additional Labs: Accuchecks 06/29/20 06/29/20 09:45 06:16 POC Glucose 241 H 273 H Radiology Reviewed by me: Yes EKG Reviewed by me: Yes Hospitalist ROS - Review of Systems ROS unobtainable: due to endotracheal tube - Medication Medications: Active Medications Generic Name Dose Route Start Last Admin Trade Name Freq PRN Reason Stop Dose Admin Heparin Sodium (Porcine) 0 units 06/28/20 21:30 06/28/20 23:47 Heparin 10,000 Units/ 10 Ml Vial SLOW IVP 6,472 units ASDIR PASCUAL Administration Protocol Fentanyl Citrate 2,000 mcg/ 100 mls @ 0 mls/hr 06/28/20 18:15 06/29/20 04:09 Sodium Chloride IV 07/28/20 18:15 100 mls INF PASCUAL Administration Protocol Per Protocol Amiodarone HCl 450 mg/ 259 mls @ 0 mls/hr 06/28/20 21:30 06/29/20 01:32 Dextrose/Water IVPB 259 mls INF PASCUAL Administration Protocol Per Protocol Heparin Sodium/Dextrose 500 mls @ 0 mls/hr 06/28/20 21:30 06/28/20 23:46 Heparin 25,000 Units/D5w IVPB 500 mls INF PASCUAL Administration Protocol Per Protocol Norepinephrine Bitartrate 250 mls @ 0 mls/hr 06/29/20 01:15 06/29/20 04:15 Levophed IVPB 250 mls INF PASCUAL Administration Protocol Titrate Insulin Human Lispro 0 units 06/28/20 22:10 06/29/20 06:13 Humalog 300 Units/3 Ml Vial SC 4 units .MILD SLIDING SCALE PRN Administration Mild Correctional Scale - Exam General Appearance: NAD, ill appearing Eye: PERRL, anicteric sclera ENT: normocephalic atraumatic, no oropharyngeal lesions ENT - other findings: Endotracheal tube in place Neck: supple, symmetric, no JVD Heart: no murmur, no gallops, no rubs Respiratory: no wheezes, no rales, no ronchi Respiratory - other findings: Left subclavian hemodialysis catheter in place Gastrointestinal: soft, non-distended, normal bowel sounds Extremities: 1+ LE edema Skin: normal turgor Hosp A/P (1) Acute respiratory failure with hypoxia Code(s): J96.01 - ACUTE RESPIRATORY FAILURE WITH HYPOXIA Status: Acute Plan: Intubated, ventilator management as per pulmonary (2) Ventricular tachycardia Code(s): I47.2 - VENTRICULAR TACHYCARDIA Status: Acute Plan: On amiodarone drip, cardiology has been consulted, patient already has AICD (3) Cardiogenic shock Code(s): R57.0 - CARDIOGENIC SHOCK Status: Acute Plan: Required vasopressor now off vasopressor (4) MRSA bacteremia Code(s): R78.81 - BACTEREMIA; B95.62 - METHICILLIN RESIS STAPH INFCT CAUSING DISEASES CLASSD ELSWHR Status: Acute Plan: Currently on vancomycin as per sliding scale, this is related with AV graft infection, infectious disease consulted (5) DVT of upper extremity (deep vein thrombosis) Code(s): I82.629 - ACUTE EMBOLISM AND THROMBOSIS OF DEEP VN UNSP UP EXTREM Status: Chronic Qualifiers: Affected thrombotic vein of extremity: brachial Laterality: right Plan: Currently she was on heparin drip (6) Dialysis AV fistula infection Code(s): T82.7XXA - INFECT/INFLM REACT D/T OTH CARDI/VASC DEV/IMPLNT/GRFT, INIT Status: Acute Qualifiers: Encounter type: subsequent encounter Qualified Code(s): T82.7XXD - Infection and inflammatory reaction due to other cardiac and vascular devices, implants and grafts, subsequent encounter (7) Anxiety and depression Code(s): F41.9 - ANXIETY DISORDER, UNSPECIFIED; F32.9 - MAJOR DEPRESSIVE DISORDER, SINGLE EPISODE, UNSPECIFIED Status: Chronic (8) Chronic combined systolic and diastolic heart failure Code(s): I50.42 - CHRONIC COMBINED SYSTOLIC AND DIASTOLIC HRT FAIL Status: Resolved (9) Diabetes type 2, controlled Code(s): E11.9 - TYPE 2 DIABETES MELLITUS WITHOUT COMPLICATIONS Status: Chronic Qualifiers: Diabetes mellitus shelter insulin use: with shelter use Diabetes mellitus complication status: with kidney complications Diabetes mellitus complication detail: with chronic kidney disease Chronic kidney disease stage: on chronic dialysis Qualified Code(s): E11.22 - Type 2 diabetes mellitus with diabetic chronic kidney disease; N18.6 - End stage renal disease; Z79.4 - roasterman (current) use of insulin; Z99.2 - Dependence on renal dialysis (10) Dyslipidemia Code(s): E78.5 - HYPERLIPIDEMIA, UNSPECIFIED Status: Chronic (11) End-stage renal disease on hemodialysis Code(s): N18.6 - END STAGE RENAL DISEASE; Z99.2 - DEPENDENCE ON RENAL DIALYSIS Status: Chronic (12) Gout Code(s): M10.9 - GOUT, UNSPECIFIED Status: Chronic Qualifiers: Gout site: unspecified site Chronicity: chronic Presence of tophus: without tophus (13) Hypertension Code(s): I10 - ESSENTIAL (PRIMARY) HYPERTENSION Status: Chronic Qualifiers: Hypertension type: essential hypertension Qualified Code(s): I10 - Essential (primary) hypertension (14) Hyperuricemia Code(s): E79.0 - HYPERURICEMIA W/O SIGNS OF INFLAM ARTHRIT AND TOPHACEOUS DIS Status: Chronic (15) Vitamin D deficiency Code(s): E55.9 - VITAMIN D DEFICIENCY, UNSPECIFIED Status: Chronic - Plan old records reviewed/req, continue antibiotics, respiratory therapy Continue ventilatory management as per pulmonary Cardiology has been consulted, Currently on amiodarone drip and heparin drip Palliative care team consulted Prognosis poor
[2020-06-29] MEDS ORDERED: Iopamidol-370 76% 500 ML 1 ML ONE (14:41)
--- NOTE | 2020-06-29 15:40 | CON ---
DATE OF CONSULTATION: 06/29/2020 REASON FOR CONSULTATION: VFib/VT arrest. PRIMARY DIVIDEND CLERK: Lenny Childs MD. HISTORY OF PRESENT ILLNESS: Ms. Bruce is a very pleasant 70-year-old white female, who comes to the hospital for syncopal spell. She actually was admitted here in the hospital just a few days ago for several days for MRSA bacteremia. She had a fistula placed in [place] and was immediately used for dialysis and eventually got infected with MRSA. I did a GENET on her to rule out endocarditis and sure enough there was no evidence of endocarditis either in the leads or in her valves. She was sent to a nursing facility, where she continued her IV antibiotics. She was not feeling well and was found unresponsive. EMS was called and showed up and saw her in ventricular tachycardia apparently, and she had been shocked about 6 times per report. She was intubated for a respiratory failure and was transferred over to and sent over to the hospital for this. She has been started on amiodarone drip for her ventricular tachycardia and Levophed for hypotension. Currently on my evaluation, she remains intubated, but she is wide awake and she is following commands. PAST MEDICAL HISTORY: 1. Ischemic cardiomyopathy, last EF at 30% to 35%. 2. Stenting to her LAD, left circumflex, and RCA in the past, last time was in 2018, at which time she had in-stent restenoses of her RCA stent and she received a drug-eluting stent at that point. At that same time, she had a patent LAD and circumflex stents. 3. Last evaluation of EF before her last admission was just about 2 months prior when she had normal LV function, and mild aortic valve stenosis. At one point, her EF was under 35% and had an AICD placed; however, the most recent EF was 52% on a stress test. 4. Last admission EF was down to 30% to 35%. Troponins were minimally changed, so this was thought to be related to acute illness rather than her history of ischemic cardiomyopathy. 5. History of colon cancer in remission, followed by Dr. Moya. 6. End-stage renal disease, on hemodialysis, Sunday, Sunday, Sunday with Dr. Spring. 7. PVD, still pending on evaluation. 8. Type 2 diabetes. 9. Gout. 10. Hyperlipidemia. SURGICAL HISTORY: 1. . 2. Cardiac stents as above. 3. Tonsillectomy. 4. Cholecystectomy. 5. Partial colectomy secondary to colon cancer. 6. Graft implanted by Dr. Esqueda in April of 2020. FAMILY HISTORY: Both parents with coronary artery disease. OUTPATIENT MEDICATIONS: 1. Tramadol. 2. MiraLAX. 3. Multivitamins. 4. Midodrine. 5. Metoprolol succinate. 6. Lidocaine patch. 7. Probiotic. 8. Iron. 9. Lantus insulin. 10. Docusate. 11. Eliquis 5 mg b.i.d. 12. Simvastatin 1 mg one tablet at bedtime. 13. Cymbalta. 14. Pantoprazole 40 mg a day. 15. Gabapentin 100 mg b.i.d. ALLERGIES: ALLOPURINOL, SULFA, AND LATEX. REVIEW OF SYSTEMS: Unobtainable as the patient is intubated. PHYSICAL EXAMINATION: VITAL SIGNS: Temperature 98.3, pulse 78, respiratory rate 20, saturating 100% on 40% FiO2. GENERAL: Awake, but intubated. HEENT: Normocephalic and atraumatic. NECK: Supple. LUNGS: Coarse breath sounds anteriorly. CARDIOVASCULAR: S1 and S2. No S3 or S4. ABDOMEN: Soft. Positive bowel sounds. EXTREMITIES: 1+ edema. SKIN: Warm and dry. LABORATORY DATA: Laboratory work was reviewed. Hematology with white count of 14.9 with 20% bands and 57% neutrophils, platelet count of 162. Coags were reviewed. ABG was reviewed. Chemistries were reviewed. Potassium was 5.2 on admission, creatinine was 6.1, GFR of 7, glucose in the 200s. TSH was 15. Albumin of 2.5. UA was brown and extra turbid with 2+ blood, 21 to 50 red cells and white cells with rare bacteria, hyaline casts. Blood cultures just came back positive on both tubes for gram-positive cocci in clusters. ASSESSMENT AND PLAN: 1. Ventricular fibrillation/ventricular tachycardia arrest. 2. Dilated cardiomyopathy, Currently better at 40%. 3. History of coronary artery disease. 4. Presence of an automatic implantable cardioverter-defibrillator. PLAN: 1. We will interrogate AICD to see if these were appropriate shocks and whether this was VT or VF. 2. We would continue amiodarone drip for possible VT and VF arrest. 3. Continue pressor support on Levophed, blood pressure is lot better. 4. Most likely, the whole situation is related to her continuous MRSA bacteremia. If the family is in agreement, we may have to repeat a transesophageal echo to make sure that she has not developed any new vegetations that would make her continue to be positive with her blood cultures and to see if there is any worsening of her valvular structures causing her to have this decompensation. Thank you for letting us to participate in the care of your patient. We will follow. 45 minutes of critical care time. ADDENDUM: - Interrogation of AICD shows she had Afib RVR and what device identified as VT was actually afib RVR with aberrancy. Likely inappropriate shock. - Interrogation also shows optivol pressures steadily increasing in last 2 days. - Continue Amiodarone gtt. - Look for PE as cause of worsening clinical state and possible syncope/code blue, continue full anticoagulation. - HD for fluid management. - After long conversation with daughter who is MPOA she wants her to be full code. She feels that is what her mother would have wanted at this time. Job ID: [id number] [facility]
--- NOTE | 2020-06-29 16:34 | PDOC.PALCO ---
Palliative Care Consult - Consult Details Requesting Physician: Dr Park Reason for Consult: goals of care, family support, complex decision-making Family Members Present: Patient three children, two grandchildren and ex- and his spouse. - Pertinent HPI 70 year old female who is familiar to the Palliative Care team. She was recently discharged from [facility] to transition to a skilled setting for continuation of hemodialysis, and rehab to gain strength and optimize transition back to independent home setting. Has a known history of end stage renal disease on hemodialysis, chronic systolic heart failure with reported EF of 30%. In custodial patient expressed increase in weakness and was transported to the emergency room in [place] for evaluation. She subsequently declined and was intubated and transfered to [facility] for higher level of care. hypotensive and required pressure support, also AICD fired 6 times. Currently patient remains on pressure support, is intubated in the CCU. Awakens. - Pertinent PMH ESRD, Hypertension, Chronic Systolic Heart Failure, DVTColon cancer - Social History Smoking: no tobacco exposure Alcohol Use: none Drug Use History: none Living Situation: other (Previously at home setting, discharged recently and sent to skilled setting) - Medications MAR Reviewed: Yes - Allergies Allergies/Adverse Reactions: Allergies Allergy/AdvReac Type Severity Reaction Status Date / Time allopurinol Allergy Severe BLISTERS Verified 05/04/20 15:24 ON HANDS Sulfa (Sulfonamide Allergy Intermediate ITCHING Verified 05/04/20 15:24 Antibiotics) latex Allergy Verified 05/04/20 15:24 - Subjective Awakens, nods head and confirms to continue with aggressive measures and hopeful to extubate. Not able to fully address ROS - ROS Non Response: due to endotracheal tube - Objective Vital Signs: Vital Signs - Most Recent Temp Pulse Resp BP Pulse Ox 98.3 F 78 18 134/73 99 06/29/20 11:00 06/29/20 14:16 06/29/20 14:00 06/29/20 02:33 06/29/20 08:00 Palliative Performance Scale: 30 - Physical Exam Constitutional: emaciated, encephalitic, ill appearing HEENT: EOMI, moist MMs, sclera anicteric Respiratory: no wheezing, diminished lung sound Deviation from normal: intubated mechanical ventilation Cardiovascular: irregular Gastrointestinal: soft, non-tender, no distention Genitourinary: coleman catheter Musculoskeletal: pulses present, edema present Skin: fragile, friable Deviation from normal: Left wound s/p av graft removal - Problem List (1) Respiratory failure requiring intubation Code(s): J96.90 - RESPIRATORY FAILURE, UNSP, UNSP W HYPOXIA OR HYPERCAPNIA Current Visit: Yes Status: Acute (2) Acute on chronic systolic heart failure Code(s): I50.23 - ACUTE ON CHRONIC SYSTOLIC (CONGESTIVE) HEART FAILURE Current Visit: Yes Status: Acute (3) Declining functional status Code(s): R53.81 - OTHER MALAISE Current Visit: No Status: Acute (4) Palliative care encounter Code(s): Z51.5 - ENCOUNTER FOR PALLIATIVE CARE Current Visit: No Status: Acu te (5) End-stage renal disease on hemodialysis Code(s): N18.6 - END STAGE RENAL DISEASE; Z99.2 - DEPENDENCE ON RENAL DIALYSIS Current Visit: No Status: Chronic - Plan/Recommendations Plan: Lengthy family meeting with patient three children, two granddaughters, ex-hus band and his spouse. Father Tobi also present as well as Clarence Kilpatrick RNenglish composition teacher. Discussed multiple disease processes and disease trajectory at length. Reviewed that dialysis is not a cure and that Ms Bruce has had difficulty with recent dialysis. Questions answered and support offered. Discussed that we will revisit goal of care as patient status determines. Hope for extubation and patient able to participate in conversation Dr Desouza and Dr Martins notified. [90] minutes spent on this encounter with >50% of the time in counseling and coordination of care. Thank you for this very appropriate consult.
[2020-06-29 17:12] LABS: PTT 128.6 sec (22.9-36.1)
[2020-06-29 17:18] LABS: Vancomycin, Random 24.1 ug/mL (See Comment)
[2020-06-29 17:40] LABS: CKMB 2.7 ng/mL (0-6.6)
--- NOTE | 2020-06-29 18:17 | CON ---
DATE OF CONSULTATION: 06/29/2020 REASON: Cardiac arrest. HISTORY OF PRESENT ILLNESS: A 70-year-old, whom I had seen recently when she was admitted with a history of type 2 diabetes mellitus and end-stage renal disease, on hemodialysis through an AV graft that became infected by methicillin-resistant Staphylococcus aureus with obvious inflammatory changes. She also has an AICD in place and had the graft removed in its entirety. Following that, she continued on vancomycin sliding scale and unfortunately had numerous positive blood cultures following that, and on my last progress note, I stated that there was a concern with colonization of the left-sided tunneled hemodialysis catheter, which had been placed elsewhere. She also had a right groin line, which I think eventually was removed and also colonization of the AICD leads. The last blood cultures were from June 18 that was 3 days before my last progress report, and she was discharged on June 25, and she had a vancomycin sliding scale plan to be continued for 6 weeks, and upon discharge, she was tolerating oral diet and was taking few steps with physical therapy, and unfortunately, the patient developed cardiac arrest associated with ventricular tachycardia and VFib, and she received internal AICD shocks 6 separate times and eventually lost her mental state, and the EMS intubated her in the field and brought her to the ICU at [facility] in [place]. On arrival, blood pressure 109/79, pulse 126, respirations 16, and O2 saturation 100, and she was unresponsive and the lung exam without any abnormalities. Heart exam appeared normal without murmurs. The abdomen appeared soft without guarding. Initial findings also included a white cell count of 14.9, hemoglobin 11, and platelets 162 with 20% bands, and CO2 was 15. Sodium 131. Liver profile with alkaline phosphatase of 152 and transaminases normal, albumin 2.5, globulin 3.8. Urinalysis, 21 to 50 wbc's, and she has 2 sets of blood cultures obtained from yesterday that are still negative, but too early to call. On admission, she had a chest x-ray, which showed the ET tube and NG tube, cardiomegaly, pulmonary vascular engorgement. There is a brain CT without any acute changes. Currently, Ms. Bruce is intubated in the ICU. She is awake. She appears to be quite alert. She followed all commands. She nodded to my questions very promptly and did not have any headaches, no respiratory symptoms, no abdominal pain, and no back pain. PAST MEDICAL HISTORY: Type 2 diabetes; end-stage renal disease; hemodialysis previously with AV graft, left upper extremity, which had to be removed due to MRSA infection. She has a left IJ tunneled hemodialysis catheter, and also, she has a history of ischemic cardiomyopathy with AICD in place, gout, blindness, neuropathy, prior DE. SURGICAL HISTORY: Four cardiac stents, retinal intervention, , tonsillectomy. SOCIAL HISTORY: Never smoker. ALLERGIES: ALLOPURINOL, LATEX, AND SULFA DRUGS. MEDICATIONS: List of meds right now; 1. Amiodarone. 2. Cefepime. 3. Fentanyl. 4. Heparin. 5. Vancomycin sliding scale. PHYSICAL EXAMINATION: VITAL SIGNS: Temperature has been normal thus far. Blood pressure 120/40, heart rate 80, FiO2 40, O2 saturations are 99. area of, I would say, stage III less than 1 cm decubitus ulcer in the presacral region with kind of a fissured ulcer below that and a grayish skin margin with a little bit of undermining. She has an ischial stage II decubitus ulcer with some violaceous discoloration around that site, a left tunneled hemodialysis catheter and AICD in the right side, and she has an indwelling Rajan catheter. Urine output is zero. HEENT: Ocular movements conjugate. Sclerae white. Pupils are constricted. Orotracheal intubation. LUNGS: With symmetric breath sounds. Clear. HEART: S1 and S2 with without murmur. ABDOMEN: Soft, not distended or tender. No ascites. No bladder distention. EXTREMITIES: She moves all extremities on command. Skin of the feet is little bit cool to touch. She has 1+ edema in lower extremities. Plantar responses are flexor. No clonus. NEUROLOGIC: She seems to have good cognition at this point, oriented. LABORATORY DATA: Urinalysis, 21 to 50 wbc's. White cell count down to 13.5, hemoglobin 10.5, MCV 107, platelets 166, bands are down to 4, and creatinine 6.46, and transaminases remain normal. Glucose 241. ASSESSMENT: 1. End-stage renal disease secondary to type 2 diabetes, on hemodialysis with tunneled hemodialysis catheter, recent infection of the left-sided AV graft due to methicillin-resistant Staphylococcus aureus, the entire graft was removed by Dr. Garcia. 2. Persistence of methicillin-resistant Staphylococcus aureus bacteremia throughout the last hospital stay, indicating colonization either of the left-sided tunneled hemodialysis catheter or AICD or both. Other sites were not apparent. Now, the patient has developed tachyarrhythmias, which were malignant and required intubation. She has been cardioverted 6 times and that saved her life basically. Now, she is back with her mental state, and I think she probably has not suffered any PARTNER MARKETING MANAGER damage, and we will have to repeat the cardiac evaluation ideally with a transesophageal echocardiogram to see if the AICD will have to be removed or at least exchanged or if she has endocarditis somewhere else. Also, if the blood cultures are positive, then I would remove the dialysis catheter and exchange it as well. Her saturation is difficult because she has 2 different devices that are possibly colonized, and the AICD or a life vest appear to be essential, as proven by this recent event that led to her current admission. Other sites of involvement are not apparent at this time. Job ID: [id number] [facility]
--- NOTE | 2020-06-29 20:51 | CT ---
CT ANGIO OF CHEST PERFORMED WITH INTRAVENOUS CONTRAST ENHANCEMENT WITH 3D RECONSTRUCTIONS: 06/29/20 HISTORY: Patient found unresponsive today. Respiratory failure. History of colon cancer. COMPARISON: A PET scan examination of 04/06/20 which showed ascites, resolution of a right pleural effusion. Review is also made of a chest x-ray done yesterday. There are large bilateral pleural effusions with bibasilar atelectatic lung changes. No pulmonary nod ules are identified. I do not appreciate any significant mediastinal or hilar adenopathy. There is good pulmonary artery o pacification, no CT evidence for pulmonary embolus. Marked ascites is incidentally seen. IMPRESSION: 1. Large bilateral pleural effusions, left larger than right. 2. No CT evidence for pulmonary embolus. 3. Suggestion of wall thickening to the esophagus incidentally noted. NG tube is in place. 4. Marked ascites. POS: [facility] [place]
[2020-06-29] MEDS: Cefepime 0.5 GM, Admixture Fee 1 EACH in Sodium Chloride 0.9% 100 ML IVPB SCH (21:21)
--- NOTE | 2020-06-29 23:31 | CON ---
DATE OF CONSULTATION: 06/29/2020 HISTORY OF PRESENT ILLNESS: Teo is a female, who is followed by Dr. Childs. She apparently had a visit to the [place] [facility], where she was intubated with multiple cardioversions defibrillator. She was initially on transfer, felt to be ventricular tachycardia, but it turns out this is rapid atrial fibrillation. Blood cultures today have turned out to be positive 2/2 for gram-positive. She was seen by me approximately 6 o'clock this morning. I had a long discussion with Dr. Childs this afternoon about her care. She was on hospice, but after repeat cardiac catheterization and right coronary stent, she had significant improvement in her clinical status and revoked her hospice status. Dr. Childs has no documents of her coronary history and history of her cardiomyopathy. PAST MEDICAL HISTORY: Otherwise, remarkable for colon cancer, in remission; end-stage renal disease, on dialysis; peripheral vascular disease; diabetes; gout; and lipid disorder. PAST SURGICAL HISTORY: Remarkable for , coronary stenting on multiple occasions, cholecystectomy, partial colectomy, and vascular access graft procedure. FAMILY HISTORY: Heart disease, but no history of lung disease in early age. MEDICATIONS: Prior to admission were reviewed. ALLERGIES: SHE REPORTS ALLERGIES TO SULFA AND ALLOPURINOL. REVIEW OF SYSTEMS: Not obtainable. PHYSICAL EXAMINATION: GENERAL: Apparently, she had a sedation holiday before I saw her and would awaken and follow commands. VITAL SIGNS: Heart rates this morning in the 80s, she is in sinus rhythm; blood pressure 140/66; respiratory rate per mechanical ventilation. HEENT: Pupils reactive. Sclerae are anicteric. LUNGS: Remarkable for equal breath sounds. HEART: Regular rhythm. S1, S2 are normal. ABDOMEN: Soft and nontender. EXTREMITIES: Without clubbing, cyanosis, or edema. LABORATORIES: White count 13.5, hemoglobin 10.5, and platelets 166. Sodium 131, potassium 5.1, chloride 95, bicarb 18, BUN 56, and creatinine 6.46. PH 7.32 last night, CO2 is 35, and PO2 of 105. IMPRESSION: Respiratory failure associated with multiple cardioversions and elective intubation in [place]. She does not appear to have an anoxic injury, but she does have bacteremia and has an indwelling medical front desk specialist. This will be evaluated by our button pusher. We will follow the other physicians. Hopefully, she will be a candidate for weaning in 24 to 48 hours if she remains stable. CRITICAL CARE TIME: Forty minutes. Job ID: [id number] [facility]
[2020-06-30] MEDS: HumaLOG 300 UNITS/3 ML VIAL SC PRN ×3 (04:56→16:53)
[2020-06-30 05:22] LABS: ALT (SGPT) 7 U/L (8-55); AST (SGOT) 15 U/L (5-34); Albumin 2.3 g/dL (3.4-4.8); Alkaline Phosphatase 119 U/L (40-110); Anion Gap 14 mmol/L (10-20); BUN (Urea Nitrogen) 41 mg/dL (9.8-20.1); Bilirubin, Total 0.7 mg/dL (0.2-1.2); Calc. Creatinine Clearance 13 mL/min (70-130); Calcium 7.6 mg/dL (7.8-10.44); Carbon Dioxide 24 mmol/L (23-31); Chloride 96 mmol/L (98-107); Estimated GFR-MDRD 8; Globulin 3.5 g/dL (2.4-3.5); Glucose 192 mg/dL (83-110); Potassium 4.1 mmol/L (3.5-5.1); Protein, Total 5.8 g/dL (6.0-8.3); Sodium 130 mmol/L (136-145)
[2020-06-30 05:33] LABS: Band 14 % (5-11); Eosinophils 2 % (0-10); Hemoglobin 9.7 g/dL (12.0-16.0); Lymphocytes 7 % (21-51); MDiff Complete? YES; Mean Corpuscular HGB CONC 31.3 g/dL (32.0-36.0); Mean Corpuscular Hemoglobin 33.4 pg (27.0-31.0); Mean Platelet Volume 10.2 fL (7.4-10.4); Monocytes 4 % (0-10); Neutrophil 73 % (42-75); Platelet Count 126 thou/uL (130-400); RBC Distribution Width 16.6 % (11.5-14.5); Red Blood Cell (RBC) Count 2.91 mill/uL (4.20-5.40); White Blood Cell (WBC) Count 11.9 thou/uL (4.8-10.8)
[2020-06-30 05:38] LABS: CKMB 2.8 ng/mL (0-6.6)
[2020-06-30] MEDS: Norepinephrine 8 MG/0.9% NS 250 ML IVPB SCH (05:51)
--- NOTE | 2020-06-30 08:15 | RAD ---
Portable frontal chest radiograph: 06/30/2020 COMPARISON: 06/28/2020 HISTORY: Congestive heart failure, respiratory failure FINDINGS: Endotracheal tube and nasogastric tube present in proper position. There is a left-sided di alysis catheter. Stable transvenous pacing device. There are bilateral pleural effusions, left greater than right, with hazy bibasilar density, particularly on the left. No discrete pneumothorax. A skinfold is noted within the lateral aspect of the left lung base. IMPRESSION: Stable appearance of the chest as detailed above. The chest is better assessed on CT zelalem ogram performed 06/29/2020.
[2020-06-30 08:44] LABS: Vancomycin, Random 29.1 ug/mL (See Comment)
--- NOTE | 2020-06-30 10:39 | PRG ---
DATE OF SERVICE: 06/30/2020 SUBJECTIVE: The patient was seen and examined at bedside in ICU, remains intubated, but awake. OBJECTIVE: GENERAL: This is a well-built female, intubated. VITAL SIGNS: Temperature 98.5, pulse 91, respiratory rate 20, blood pressure 138/110. HEENT: Intubated. CV: S1 and S2 heard. RESPIRATORY: Clear. GI: Abdomen is soft. MUSCULOSKELETAL: 1+ edema. DERMATOLOGIC: No skin rash. NEUROLOGICAL: Awake, but intubated. LABORATORY DATA: Potassium 4.1, BUN is 41, and creatinine is 5.1. ASSESSMENT AND PLAN: 1. End-stage renal disease. Continue dialysis as tolerated. We will plan for dialysis tomorrow. 2. Edema, controlled. 3. Hypertension. 4. Chronic anemia. 5. Acute hypoxic respiratory failure, intubated. Plan to have dialysis as tolerated. Job ID: [id number]
--- NOTE | 2020-06-30 12:06 | PDOC.CPN ---
- Subjective Date: 06/30/20 Time: 11:56 Interval history: No new issues. She tolerated HD yesterday. She is wide awake and able to communicate by writing and we can read her lips. She wants the tube out. - Review of Systems ROS unobtainable: due to endotracheal tube - Objective Allergies/Adverse Reactions: Allergies Allergy/AdvReac Type Severity Reaction Status Date / Time allopurinol Allergy Severe BLISTERS Verified 05/04/20 15:24 ON HANDS Sulfa (Sulfonamide Allergy Intermediate ITCHING Verified 05/04/20 15:24 Antibiotics) latex Allergy Verified 05/04/20 15:24 Visit Medications: Current Medications Dextrose/Water (Dextrose 50% Abboject 50 Ml Syringe) 25 gm SLOW IVP PRN PRN PRN Reason: Hypoglycemia Glucagon (Glucagon 1 Mg/Ml Vial) 1 mg IM PRN PRN PRN Reason: Hypoglycemia Heparin Sodium (Porcine) (Heparin 10,000 Units/ 10 Ml Vial) 0 units SLOW IVP ASDIR PASCUAL; Protocol Last Admin: 06/28/20 23:47 Dose: 6,472 units Documented by: Fentanyl Citrate 2,000 mcg/ (Sodium Chloride) 100 mls @ 0 mls/hr IV INF PASCUAL; Protocol Stop: 07/28/20 18:15 Last Admin: 06/29/20 21:36 Dose: 100 mls Documented by: Cefepime HCl 0.5 gm/Miscellaneous Medication 1 each/ Sodium Chloride 100 mls @ 200 mls/hr IVPB 2100 PASCUAL Last Admin: 06/29/20 21:21 Dose: 100 mls Documented by: Phenylephrine HCl (Manas-Synephrine) 250 mls @ 0 mls/hr IVPB PRN PRN; Protocol PRN Reason: To maintain MAP > 65 Amiodarone HCl 450 mg/ (Dextrose/Water) 259 mls @ 0 mls/hr IVPB INF PASCUAL; Protocol Last Admin: 06/29/20 15:04 Dose: 259 mls Documented by: Heparin Sodium/Dextrose (Heparin 25,000 Units/D5w) 500 mls @ 0 mls/hr IVPB INF PASCUAL; Protocol Last Admin: 06/28/20 23:46 Dose: 500 mls Documented by: Fentanyl Citrate (Fentanyl Bolus) 250 mls @ 0 mls/hr IVPB PRN PRN PRN Reason: Breakthrough pain/agitation Stop: 07/28/20 21:45 Dextrose/Water (D5w) 1,000 mls @ 0 mls/hr IV .Q0M PRN PRN Reason: Hypoglycemia Vancomycin HCl 1.25 gm/ Sodium (Chloride) 250 mls @ 166.667 mls/hr IVPB WILLCALL PASCUAL Vancomycin HCl 1 gm/ Device 200 mls @ 200 mls/hr IVPB WILLCALL PASCUAL Vancomycin HCl 750 mg/ Sodium (Chloride) 250 mls @ 250 mls/hr IVPB WILLCALL PASCUAL Vancomycin HCl 500 mg/ Sodium (Chloride) 100 mls @ 100 mls/hr IVPB WILLCALL PASCUAL Norepinephrine Bitartrate (Levophed) 250 mls @ 0 mls/hr IVPB INF PASCUAL; Protocol Last Admin: 06/30/20 05:51 Dose: 250 mls Documented by: Insulin Human Lispro (Humalog 300 Units/3 Ml Vial) 0 units SC .MILD SLIDING SCALE PRN PRN Reason: Mild Correctional Scale Last Admin: 06/30/20 04:56 Dose: 2 units Documented by: Lorazepam (Lorazepam 2 Mg/Ml Vial) 2 mg SLOW IVP Q1H PRN PRN Reason: Breakthrough agitation Stop: 07/28/20 21:45 Miscellaneous Medication (Pharmacy To Dose Vancomycin/Abx's) 1 each IVPB PRN PRN PRN Reason: Pharmacy to dose Morphine Sulfate (Morphine 2 Mg/Ml Vial) 2 mg SLOW IVP Q1H PRN PRN Reason: Breakthrough Pain/Agitation Stop: 07/28/20 21:45 Discontinue Previous Narcotic Pain Medications And Benzodiazepines 1 each FS .ONE [facility] Stop: 07/28/20 21:45 Hold Vancomycin For (Level >20) 0 each FS .AT [facility]IAL[facility] Propofol (Propofol 1,000 Mg/100 Ml Vial) 1,000 mg IV INF PRN; Protocol PRN Reason: TO ACHIEVE GOAL RASS Stop: 07/28/20 21:45 Propofol (Propofol Bolus 1,000 Mg/100 Ml Vial) 20 mg IV Q5MIN PRN PRN Reason: BREAKTHROUGH AGITATION Stop: 07/28/20 21:45 Vital Signs & Weight: Vital Signs Temp Pulse Resp BP Pulse Ox 06/30/20 10:40 82 116/81 06/30/20 07:45 84 132/110 H 100 06/30/20 07:00 98.3 F 06/30/20 06:00 18 06/30/20 04:00 98.5 F 20 06/30/20 02:17 90 156/96 H 06/30/20 02:00 20 06/30/20 00:00 98.3 F 21 H Admit Weight 178 lb 12.718 oz Weight 179 lb 10.828 oz - Physical Exam General: no apparent distress HEENT: mucus membranes moist Neck: supple neck Cardiac: regular rate and rhythm, no murmur Lungs: normal breath sounds Neuro: no lateralizing findings Abdomen: active bowel sounds Extremities: 1+ LE edema Skin: clear Musculoskeletal: no pain - Labs Result Diagrams: 06/30/20 04:40 06/30/20 04:40 Troponin/CKMB CK-MB (CK-2) 2.8 ng/mL (0-6.6) 06/30/20 04:40 Troponin I 0.070 ng/mL (< 0.028) H 06/30/20 04:40 - Telemetry Sinus rhythms and dysrhythmias: sinus rhythm - Assessment/Plan Assessment/Plan: 1. Paroxysmal afib 2. Inappropriate shocks during Afib NOT VT or VF. 3. CAD, no ACS. 4. ESRD on HD 5. Acute on chronic systolic heart failure 6. Persistent MRSA bacteremia 7. Presence of an AICD 8. EF yesterday at 30-40%. PLAN: - Continue to wean vent per critical care. - HD for fluid control - Will need GENET once off pressors and more stable. - Continue full, anticoagulation with heparin for stroke prophylaxis and for DVT - Continue amiodarone gtt. - Will follow.
[2020-06-30] MEDS: Amiodarone 450 MG in Dextrose 5% in Water 250 ML IVPB SCH (12:56)
--- NOTE | 2020-06-30 16:37 | PRG ---
DATE OF SERVICE: 06/30/2020 SUBJECTIVE: Teo is in the ICU. Remains intubated. She is awake, wants to be extubated. Denies any pain right now. OBJECTIVE: VITAL SIGNS: She is afebrile, blood pressure 119/93, heart rate 79, respiratory rate 14, O2 saturation 100. SKIN: With the incision in the left arm which has healed almost completely. There is no erythema or drainage. : She has an indwelling catheter with zero output. GENERAL: She is awake. LUNGS: Symmetric, clear breath sounds. HEART: S1 and S2. ABDOMEN: Soft. Not distended moves. EXTREMITIES: All extremities. LABORATORY DATA: White cell count is 11.9, hemoglobin 9.7, platelets 126. Creatinine 5.10. Two sets of blood cultures with MRSA again from the . GENET will be carried out once pressors are discontinued and she is more stable. Probably, will need removal of the hemodialysis catheter and exchange. I hope, we do not have to remove the AICD because that will complicate things tremendously. Maybe the option will be a LifeVest in that case and not have any device placed until this infection has resolved. Job ID: [id number]
--- NOTE | 2020-06-30 16:42 | PDOC.HOSPP ---
- Subjective Encounter Date: 06/30/20 Encounter Time: 11:15 Subjective: pt up in bed no complains. - Objective Vital Signs & Weight: Vital Signs (12 hours) Temp Pulse Resp BP Pulse Ox 06/30/20 16:00 97.5 F L 99 06/30/20 12:00 19 06/30/20 11:00 97.6 F 06/30/20 10:40 82 21 H 116/81 06/30/20 10:00 18 06/30/20 08:00 22 H 06/30/20 07:45 84 132/110 H 100 06/30/20 07:00 98.3 F 06/30/20 06:00 18 Weight Admit Weight 178 lb 12.718 oz Weight 179 lb 10.828 oz Most Recent Monitor Data Heart Rate from ECG 80 NIBP 142/117 NIBP BP-Mean 125 Respiration from ECG 21 SpO2 100 I&O: 06/29/20 06/30/20 07/01/20 06:59 06:59 06:59 Intake Total 1195 1555.7 Output Total 0 Balance 1195 1555.7 Result Diagrams: 06/30/20 04:40 06/30/20 04:40 Additional Labs: Accuchecks 06/30/20 06/30/20 06/29/20 10:54 04:51 21:36 POC Glucose 191 H 186 H 163 H Hospitalist ROS - Review of Systems Cardiovascular: denies: chest pain, palpitations, orthopnea, paroxysmal noc. dyspnea, edema, light headedness, other Gastrointestinal: denies: nausea, vomiting, abdominal pain, diarrhea, constipation, melena, hematochezia, other Genitourinary: denies: dysuria, frequency, incontinence, hematuria, retention, other - Medication Medications: Active Medications Generic Name Dose Route Start Last Admin Trade Name Freq PRN Reason Stop Dose Admin Heparin Sodium (Porcine) 0 units 06/28/20 21:30 06/28/20 23:47 Heparin 10,000 Units/ 10 Ml Vial SLOW IVP 6,472 units ASDIR PASCUAL Administration Protocol Fentanyl Citrate 2,000 mcg/ 100 mls @ 0 mls/hr 06/28/20 18:15 06/29/20 21:36 Sodium Chloride IV 07/28/20 18:15 100 mls INF PASCUAL Administration Protocol Per Protocol Cefepime HCl 0.5 gm/ 100 mls @ 200 mls/hr 06/29/20 21:00 06/29/20 21:21 Miscellaneous Medication 1 IVPB 100 mls each/ Sodium Chloride 2100 PASCUAL Administration Amiodarone HCl 450 mg/ 259 mls @ 0 mls/hr 06/28/20 21:30 06/30/20 12:56 Dextrose/Water IVPB 259 mls INF PASCUAL Administration Protocol Per Protocol Heparin Sodium/Dextrose 500 mls @ 0 mls/hr 06/28/20 21:30 06/28/20 23:46 Heparin 25,000 Units/D5w IVPB 500 mls INF PASCUAL Administration Protocol Per Protocol Norepinephrine Bitartrate 250 mls @ 0 mls/hr 06/29/20 01:15 06/30/20 05:51 Levophed IVPB 250 mls INF PASCUAL Administration Protocol Titrate Insulin Human Lispro 0 units 06/28/20 22:10 06/30/20 12:07 Humalog 300 Units/3 Ml Vial SC 2 units .MILD SLIDING SCALE PRN Administration Mild Correctional Scale Sodium Chloride 10 ml 06/30/20 21:00 06/30/20 12:58 Flush - Normal Saline 10 Ml Syringe IVF 10 ml Q12HR PASCUAL Administration - Exam Neck: negative: supple, symmetric, no JVD, no thyromegaly, no lymphadenopathy, no carotid bruit, JVD Heart: negative: RRR, no murmur, no gallops, no rubs, normal peripheral pulses, irregular, diminshed peripheral pulses, murmur present, II/IV, III/IV Respiratory: rales Gastrointestinal: negative: soft, non-tender, non-distended, normal bowel sounds, no palpable masses, no hepatomegaly, no splenomegaly, no bruit, no guarding, no rigidity, tender to palpation, distended, diminished bowl sounds, voluntary guarding Extremities: 1+ LE edema Extremities - other findings: Upper and lower extremity Hosp A/P (1) MRSA bacteremia Code(s): R78.81 - BACTEREMIA; B95.62 - METHICILLIN RESIS STAPH INFCT CAUSING DISEASES CLASSD ELSWHR Status: Acute (2) Respiratory failure requiring intubation Code(s): J96.90 - RESPIRATORY FAILURE, UNSP, UNSP W HYPOXIA OR HYPERCAPNIA Status: Acute (3) DVT of upper extremity (deep vein thrombosis) Code(s): I82.629 - ACUTE EMBOLISM AND THROMBOSIS OF DEEP VN UNSP UP EXTREM Status: Chronic Qualifiers: Affected thrombotic vein of extremity: brachial Laterality: right (4) Septic shock Code(s): A41.9 - SEPSIS, UNSPECIFIED ORGANISM; R65.21 - SEVERE SEPSIS WITH SEPTIC SHOCK Status: Acute (5) Diabetes type 2, controlled Code(s): E11.9 - TYPE 2 DIABETES MELLITUS WITHOUT COMPLICATIONS Status: Chronic Qualifiers: Diabetes mellitus fpc insulin use: with manager terminal use Diabetes mellitus complication status: with kidney complications Diabetes mellitus complication detail: with chronic kidney disease Chronic kidney disease stage: on chronic dialysis Qualified Code(s): E11.22 - Type 2 diabetes mellitus with diabetic chronic kidney disease; N18.6 - End stage renal disease; Z79.4 - intermodal dispatcher (current) use of insulin; Z99.2 - Dependence on renal dialysis (6) End-stage renal disease on hemodialysis Code(s): N18.6 - END STAGE RENAL DISEASE; Z99.2 - DEPENDENCE ON RENAL DIALYSIS Status: Chronic - Plan Patient underwent multiple cardioversion due to that she underwent intubation was extubated 06/30 patient currently on norepinephrine, amiodarone and heparin. Patient's blood cultures continue to be positive for MRSA. Per infectious disease note she will require removal of her dialysis catheter. She will require GENET once she is hemodynamically stable. Restart home medications.
--- NOTE | 2020-06-30 17:03 | PRG ---
DATE OF SERVICE: 06/30/2020 OBJECTIVE: VITAL SIGNS: Ms. Bruce is afebrile. Heart rate is in the 70s, blood pressure 142/117, respiratory rate is 21, and oximetry is 100%. LUNGS: Clear. HEART: Regular rhythm. ABDOMEN: Soft. EXTREMITIES: Without asymmetry. She moved all extremities to command. She is mouthing that she wanted to go home prior to extubation. DIAGNOSTIC STUDIES: Chest radiograph, still hazy bilaterally both lung bases. IMPRESSION: 1. Status post multiple episodes of ventricular tachycardia leading to her defibrillator firing. 2. Status post intubation for this reason with no clinical anoxic injury. 3. Methicillin-resistant Staphylococcus aureus bacteremia with possible hardware infections associated with this. I would think that her cefepime could be discontinued. She can continue with just vancomycin. Obviously, she will end up needing a PICC line at some point. Infectious Disease's input would be helpful. She has horrible dentition. I do not think that is contributing to anything regarding this illness. She is anemic, but does not need a transfusion at this point. Potassium is 4.1 today. I agree that she would benefit probably from exchange of her dialysis catheter. Critical care time 35 min. Job ID: [id number] MTDD
[2020-06-30] MEDS: Midodrine HCl 5 MG TAB PO SCH (20:16)
[2020-06-30] MEDS: Atorvastatin Calcium 20 MG TAB PO SCH (20:16)
[2020-06-30] MEDS: Gabapentin 300 MG CAP PO SCH (20:16)
[2020-06-30] MEDS: Cefepime 0.5 GM, Admixture Fee 1 EACH in Sodium Chloride 0.9% 100 ML IVPB SCH (20:16)
[2020-06-30] MEDS: Docusate 100 MG CAP PO SCH (20:17)
[2020-06-30 21:39] LABS: Hemoglobin 9.3 g/dL (12.0-16.0); Platelet Count 170 thou/uL (130-400)
[2020-07-01] MEDS: HumaLOG 300 UNITS/3 ML VIAL SC PRN ×2 (04:25→09:46)
[2020-07-01 04:54] LABS: PTT 133.5 sec (22.9-36.1)
[2020-07-01 05:07] LABS: ALT (SGPT) 10 U/L (8-55); AST (SGOT) 13 U/L (5-34); Albumin 2.3 g/dL (3.4-4.8); Alkaline Phosphatase 113 U/L (40-110); Anion Gap 17 mmol/L (10-20); BUN (Urea Nitrogen) 46 mg/dL (9.8-20.1); Bilirubin, Total 0.6 mg/dL (0.2-1.2); Calc. Creatinine Clearance 12 mL/min (70-130); Calcium 8.1 mg/dL (7.8-10.44); Carbon Dioxide 21 mmol/L (23-31); Chloride 95 mmol/L (98-107); Estimated GFR-MDRD 8; Globulin 3.4 g/dL (2.4-3.5); Glucose 227 mg/dL (83-110); Potassium 4.3 mmol/L (3.5-5.1); Protein, Total 5.7 g/dL (6.0-8.3); Sodium 129 mmol/L (136-145)
[2020-07-01 05:12] LABS: Band 31 % (5-11); Hemoglobin 9.3 g/dL (12.0-16.0); Lymphocytes 5 % (21-51); MDiff Complete? YES; Macrocytosis SLIGHT = 6-15 cells (100X) (0-5/hpf); Mean Corpuscular HGB CONC 31.3 g/dL (32.0-36.0); Mean Corpuscular Hemoglobin 33.6 pg (27.0-31.0); Mean Platelet Volume 10.7 fL (7.4-10.4); Monocytes 9 % (0-10); Neutrophil 55 % (42-75); Platelet Count 135 thou/uL (130-400); RBC Distribution Width 16.6 % (11.5-14.5); Red Blood Cell (RBC) Count 2.75 mill/uL (4.20-5.40); White Blood Cell (WBC) Count 14.5 thou/uL (4.8-10.8)
[2020-07-01] MEDS: Norepinephrine 8 MG/0.9% NS 250 ML IVPB SCH ×4 (07:42→23:31)
--- NOTE | 2020-07-01 07:57 | RAD ---
Portable frontal chest radiograph: 07/01/2020 COMPARISON: 06/30/2020 HISTORY: Congestive heart failure, ventilated patient FINDINGS: The endotracheal tube and nasogastric tube have been removed. Stable transvenous AICD and d ialysis catheter. Interval worsening density in the perihilar regions with dense consolidative change in the right perihilar and infrahilar region, new. Worsening interstitial and alveolar opacity noted in the left perihilar region. Dense left basilar opacity with obscuration of the left hemidiaphragm consistent with left lower lobe consolidation/collapse and left pleural effusion. IMPRESSION: Significant interval worsening in perihilar and bibasilar aeration suggesting interval de velopment/worsening of pulmonary edema and/or aspiration/infectious pneumonitis. Short-term follow-up imaging following treatment advised.
[2020-07-01] MEDS ORDERED: Heparin 10,000 UNITS/ 10 ML VIAL ONE (08:41)
[2020-07-01 09:45] LABS: Vancomycin, Random 22.7 ug/mL (See Comment)
[2020-07-01 10:23] LABS: Actual Bicarbonate (HCO3a) 20.3 mEq/L (22-28); Base Excess (BEa) -8.2 mEq/L (-2.0 to +3.0); CO2 Tension 58.1 mmHg (35.0-45.0); Calcium, Ionized (arterial) 1.09 mmol/L (1.12-1.30); Carboxyhemoglobin (COHb) 0.8 gm% (0.0-3.0); Hemoglobin (Hb) 9.1 g/dL (12.0-16.0); O2 Tension (PaO2), arterial 87.7 mmHg (> 70.0); Potassium - ABG Lab 3.86 mmol/L (3.70-5.30)
[2020-07-01] MEDS ORDERED: Midazolam HCl 2 mg/2 ml Vial ONE (10:37)
[2020-07-01 10:57] LABS: Puncture Site RRA; pH, Arterial 7.16 (7.35-7.45)
[2020-07-01 10:58] LABS: ALV-art Gradient 338.775 mmHg (0-20)
[2020-07-01] MEDS: Sodium Bicarb 50 MEQ/50 ML Abboject 8.4% SYRINGE ONE (11:00)
[2020-07-01] MEDS ORDERED: Morphine 2 MG/ML VIAL SLOW IVP PRN (11:30)
[2020-07-01] MEDS ORDERED: Propofol 1,000 MG/100 ML VIAL IV PRN (11:30)
[2020-07-01] MEDS ORDERED: Fentanyl BOLUS 250 ML IVPB PRN (11:30)
[2020-07-01] MEDS ORDERED: Lorazepam 2 MG/ML VIAL SLOW IVP PRN (11:30)
[2020-07-01] MEDS ORDERED: Propofol BOLUS 1,000 MG/100 ML VIAL IV PRN (11:30)
[2020-07-01] MEDS ORDERED: fentaNYL Citrate/PF 2,000 MCG in Sodium Chloride 0.9% 60 ML IV SCH (11:30)
[2020-07-01] MEDS ORDERED: DISCONTINUE PREVIOUS NARCOTIC PAIN MEDICATIONS AND BENZODIAZEPINES FS SCH (11:30)
[2020-07-01] MEDS ORDERED: Albumin 25% 100 ML ONE (11:35)
--- NOTE | 2020-07-01 11:38 | PRG ---
DATE OF SERVICE: 07/01/2020 SUBJECTIVE: The patient was seen and examined in ICU. She remains confused. She was on BiPAP, but her labs were looking worse. Critical Care team was getting ready to intubate her. OBJECTIVE: GENERAL: This is a well-built female who is on BiPAP. VITAL SIGNS: Temperature 97.4, pulse 68, respiratory rate 20, pressure 137/90. HEENT: On BiPAP. CARDIOVASCULAR: S1 and S2. RESPIRATORY: Clear. GASTROINTESTINAL: Abdomen is soft. MUSCULOSKELETAL: 2+ edema. DERMATOLOGIC: No skin rash. NEUROLOGIC: Lethargic. LABORATORY DATA: Potassium 4.3, sodium 129, BUN is 46, and creatinine is 5.5. The pH was 7.1, pCO2 of 58. ASSESSMENT AND PLAN: 1. End-stage renal disease. Continue on dialysis as tolerated. Plan to have dialysis today. 2. Edema. We will remove fluid. 3. Hypertension. 4. Chronic anemia. 5. Acute hypoxic respiratory failure. 6. Acute hypercapnia. Plan to intubate her again. Prognosis remains guarded. We will have dialysis today. Job ID: [id number]
[2020-07-01 11:42] LABS: Actual Bicarbonate (HCO3a) 21.9 mEq/L (22-28); Base Excess (BEa) -5.1 mEq/L (-2.0 to +3.0); CO2 Tension 50.2 mmHg (35.0-45.0); Calcium, Ionized (arterial) 1.04 mmol/L (1.12-1.30); Carboxyhemoglobin (COHb) 0.7 gm% (0.0-3.0); Hemoglobin (Hb) 9.1 g/dL (12.0-16.0); O2 Tension (PaO2), arterial 127.2 mmHg (> 70.0); Potassium - ABG Lab 3.64 mmol/L (3.70-5.30); pH, Arterial 7.26 (7.35-7.45)
[2020-07-01 11:44] LABS: Puncture Site RRA
--- NOTE | 2020-07-01 11:54 | RAD ---
Exam: Chest one view HISTORY:Intubation. Comparison: 07/01/2020 FINDINGS: Lines and tubes: Interval placement of endotracheal tube at the level of the [place]. Nasogastric tube extends beyond the diaphragm. Stable left-sided HemoSplit dialysis catheter. Stable right-sided transvenous defibrillator. Cardiac silhouette:Cardiomegaly Aorta: Unremarkable Pulmonary vessels: Normal Costophrenic angles: Clear LUNGS: Multifocal interstitial and alveolar opacities, unchanged. Pneumothorax: None Osseous abnormalities: None IMPRESSION: 1. Interval placement of endotracheal tube at the level of [place]. Endotracheal tube needs to be pull ed back. 2. Multifocal interstitial and alveolar opacities, unchanged. Results of study conveyed to patient's nurse Nina on 07/01/2020 at 11:53 AM Code CR Transcribed Date/Time: 07/01/2020 12:15 PM
--- NOTE | 2020-07-01 12:16 | PRG ---
DATE OF SERVICE: 07/01/2020 SUBJECTIVE: She was intubated earlier, had a cardiopulmonary arrest at about 1115 hours. CPR was initiated. She appeared to be in an idioventricular rhythm, wide complex still. She was given an amp of epinephrine. She is already on Levophed drip. She is being dialyzed. Chest x-ray post CPR shows extensive bilateral infiltrates. She was given an amp of epinephrine and an amp of bicarbonate. Blood gas shows pO2 of 127, pCO2 of 50, and pH 7.26 on a rate of 30 with 100% FiO2. OBJECTIVE: CHEST: Extensive rhonchi. CARDIAC: Sinus tach. ABDOMEN: Soft. ASSESSMENT: Multiorgan failure, Staphylococcus sepsis, cardiomyopathy, aspiration. PLAN: Family is to come back again to decide about ongoing code status. I have started low-dose vasopressin and stress dose of steroids. Prognosis remains grave. She was a DNR in the past. We will continue supportive care until family arrives. One-half hour of critical care time. Job ID: [id number]
[2020-07-01 12:35] LABS: Magnesium 1.9 mg/dL (1.6-2.6); Phosphorus 5.6 mg/dL (2.3-4.7)
[2020-07-01] MEDS: Vasopressin 20 UNIT, Admixture Fee 1 EACH in Sodium Chloride 0.9% 50 ML IV SCH ×2 (12:37→18:37)
--- NOTE | 2020-07-01 12:53 | PRG ---
DATE OF SERVICE: 07/01/2020 SUBJECTIVE: Yanet Bruce was less responsive this morning. Blood gas showed CO2 retention with a pCO2 of 58, and pH 7.16. She was placed on BiPAP and looked a little more comfortable on BiPAP, but the blood gas that I just reported was done on BiPAP, so we elected to intubate her. She is already on pressors. She is connected to dialysis machine. A fiberoptic bronchoscope was brought to the bedside and she was fiberoptically intubated. She vomited during intubation, but did not aspirate of her tracheobronchial tree. She is connected to mechanical ventilation, hyperventilated, given 2 amps of bicarb and 1 amp of epinephrine after intubation. She never lost a pulse, but her blood pressure did drop with 2 mg of Versed. She was felt to be at high risk for declining after this. She was given 1 L of saline to dialysis machine very quickly. She appeared to be stabilizing, but it is felt that her multiple medical problems combined with her extreme deconditioning make her chances for survival extremely small. This information was relayed to Dr. Childs who plans to meet with family since he is her primary educational coordinator and knows family well. CRITICAL CARE TIME: 40 minutes excluding procedures. Job ID: [id number] [facility]
[2020-07-01] MEDS: Midodrine HCl 5 MG TAB PO SCH ×3 (13:14→19:59)
[2020-07-01] MEDS: Docusate 100 MG CAP PO SCH ×2 (13:14→19:58)
[2020-07-01] MEDS: DULoxetine 60 MG CAP PO SCH (13:14)
[2020-07-01] MEDS: Ferrous Sulfate 325 MG TAB PO SCH (13:14)
[2020-07-01] MEDS: Lactinex Tablet PO SCH (13:14)
[2020-07-01] MEDS: Gabapentin 300 MG CAP PO SCH ×2 (13:14→19:58)
[2020-07-01] MEDS: Multivit, Therapeutic 1 TAB PO SCH (13:15)
[2020-07-01] MEDS: Polyethylene Glycol 3350 17 GM Packet PO SCH (13:15)
[2020-07-01] MEDS: Hydrocortisone Sod Succ/PF 100 mg/2 ml Vial IVP SCH ×3 (13:19→23:38)
--- NOTE | 2020-07-01 16:56 | PDOC.HOSPP ---
- Subjective Encounter Date: 07/01/20 Encounter Time: 11:30 Subjective: Patient intubated after being nauseous then went into PEA arrest - Objective Vital Signs & Weight: Vital Signs (12 hours) Temp Pulse Resp BP Pulse Ox 07/01/20 16:00 98.4 F 07/01/20 14:24 103 H 150/122 H 07/01/20 13:18 110 H 133/86 07/01/20 12:00 30 H 94 L 07/01/20 10:42 110 H 120/89 07/01/20 08:00 96.2 F L 94 L Weight Admit Weight 178 lb 12.718 oz Weight 179 lb 10.828 oz Most Recent Monitor Data Heart Rate from ECG 128 NIBP 166/65 NIBP BP-Mean 98 Respiration from ECG 34 SpO2 91 I&O: 06/30/20 07/01/20 07/02/20 06:59 06:59 06:59 Intake Total 1555.7 1682.7 Balance 1555.7 1682.7 Result Diagrams: 07/01/20 04:15 07/01/20 04:15 Additional Labs: Accuchecks 07/01/20 07/01/20 07/01/20 16:27 09:17 04:24 POC Glucose 121 H 196 H 214 H 06/30/20 20:39 POC Glucose 174 H Hospitalist ROS - Review of Systems Other: Unable to obtain - Medication Medications: Active Medications Generic Name Dose Route Start Last Admin Trade Name Freq PRN Reason Stop Dose Admin Acidophilus 1 tab 07/01/20 09:00 07/01/20 13:14 Lactinex Tablet PO Not Given DAILY PASCUAL Albuterol/Ipratropium 3 ml 07/01/20 14:30 07/01/20 14:23 Ipratropium/Albuterol Sulfate 3 Ml Neb NEB 3 ml [id number] PASCUAL Administration Atorvastatin Calcium 20 mg 06/30/20 21:00 06/30/20 20:16 Atorvastatin Calcium 20 Mg Tab PO 20 mg HS PASCUAL Administration Docusate Sodium 100 mg 06/30/20 21:00 07/01/20 13:14 Docusate 100 Mg Cap PO Not Given BID PASCUAL Duloxetine HCl 60 mg 07/01/20 09:00 07/01/20 13:14 Duloxetine 60 Mg Cap PO Not Given DAILY PASCUAL Ferrous Sulfate 325 mg 07/01/20 09:00 07/01/20 13:14 Ferrous Sulfate 325 Mg Tab PO Not Given DAILY PASCUAL Gabapentin 300 mg 06/30/20 21:00 07/01/20 13:14 Gabapentin 300 Mg Cap PO Not Given BID PASCUAL Heparin Sodium (Porcine) 0 units 06/28/20 21:30 06/28/20 23:47 Heparin 10,000 Units/ 10 Ml Vial SLOW IVP 6,472 units ASDIR PASCUAL Administration Protocol Hydrocortisone Sodium Succinate 50 mg 07/01/20 12:00 07/01/20 13:19 Hydrocortisone Sod Succ/Pf 100 Mg/2 Ml Vial IVP 07/08/20 12:01 50 mg Q6HR PASCUAL Administration Cefepime HCl 0.5 gm/ 100 mls @ 200 mls/hr 06/29/20 21:00 06/30/20 20:16 Miscellaneous Medication 1 IVPB 100 mls each/ Sodium Chloride 2100 PASCUAL Administration Amiodarone HCl 450 mg/ 259 mls @ 0 mls/hr 06/28/20 21:30 07/01/20 00:00 Dextrose/Water IVPB 259 mls INF PASCUAL Administration Protocol Per Protocol Heparin Sodium/Dextrose 500 mls @ 0 mls/hr 06/28/20 21:30 06/28/20 23:46 Heparin 25,000 Units/D5w IVPB 500 mls INF PASCUAL Administration Protocol Per Protocol Norepinephrine Bitartrate 250 mls @ 0 mls/hr 06/29/20 01:15 07/01/20 15:08 Levophed IVPB 250 mls INF PASCUAL Administration Protocol Titrate Fentanyl Citrate 2,000 mcg/ 100 mls @ 0 mls/hr 07/01/20 11:30 07/01/20 11:42 Sodium Chloride IV 07/31/20 11:30 100 mls INF PASCUAL Administration Protocol Per Protocol Vasopressin 20 unit/ 51 mls @ 0 mls/hr 07/01/20 12:30 07/01/20 12:37 Miscellaneous Medication 1 IV 51 mls each/ Sodium Chloride INF PASCUAL Administration Protocol As Directed Insulin Human Lispro 0 units 06/28/20 22:10 07/01/20 09:46 Humalog 300 Units/3 Ml Vial SC 2 units .MILD SLIDING SCALE PRN Administration Mild Correctional Scale Midodrine 5 mg 06/30/20 21:00 07/01/20 16:30 Midodrine Hcl 5 Mg Tab PO 5 mg TID PASCUAL Administration Multivitamins 1 tab 07/01/20 09:00 07/01/20 13:15 Multivit, Therapeutic 1 Tab PO Not Given DAILY PASCUAL Pantoprazole Sodium 40 mg 07/01/20 09:00 07/01/20 13:15 Pantoprazole 40 Mg Tab PO Not Given DAILY PASCUAL Polyethylene Glycol 17 gm 07/01/20 09:00 07/01/20 13:15 Polyethylene Glycol 3350 17 Gm Packet PO Not Given DAILY PASCUAL Sodium Chloride 10 ml 06/30/20 21:00 07/01/20 13:15 Flush - Normal Saline 10 Ml Syringe IVF Not Given Q12HR PASCUAL - Exam Heart: negative: RRR, no murmur, no gallops, no rubs, normal peripheral pulses, irregular, diminshed peripheral pulses, murmur present, II/IV, III/IV Respiratory: negative: CTAB, no wheezes, no rales, no ronchi, normal chest expansion, no tachypnea, normal percussion, rales, rhonchi, tachypneic, wheezes Gastrointestinal: soft, normal bowel sounds Hosp A/P (1) MRSA bacteremia Code(s): R78.81 - BACTEREMIA; B95.62 - METHICILLIN RESIS STAPH INFCT CAUSING DISEASES CLASSD ELSWHR Status: Acute (2) Respiratory failure requiring intubation Code(s): J96.90 - RESPIRATORY FAILURE, UNSP, UNSP W HYPOXIA OR HYPERCAPNIA Status: Acute (3) DVT of upper extremity (deep vein thrombosis) Code(s): I82.629 - ACUTE EMBOLISM AND THROMBOSIS OF DEEP VN UNSP UP EXTREM Status: Chronic Qualifiers: Affected thrombotic vein of extremity: brachial Laterality: right (4) Septic shock Code(s): A41.9 - SEPSIS, UNSPECIFIED ORGANISM; R65.21 - SEVERE SEPSIS WITH SEPTIC SHOCK Status: Acute (5) Diabetes type 2, controlled Code(s): E11.9 - TYPE 2 DIABETES MELLITUS WITHOUT COMPLICATIONS Status: Chron ic Qualifiers: Diabetes mellitus detention insulin use: with detention use Diabetes mellitus complication status: with kidney complications Diabetes mellitus complication detail: with chronic kidney disease Chronic kidney disease stage: on chronic dialysis Qualified Code(s): E11.22 - Type 2 diabetes mellitus with diabetic chronic kidney disease; N18.6 - End stage renal disease; Z79.4 - USP (current) use of insulin; Z99.2 - Dependence on renal dialysis (6) End-stage renal disease on hemodialysis Code(s): N18.6 - END STAGE RENAL DISEASE; Z99.2 - DEPENDENCE ON RENAL DIALYSIS Status: Chronic - Plan Patient underwent multiple cardioversion due to that she underwent intubation was extubated 06/30 patient currently on norepinephrine, amiodarone and heparin. Patient's blood cultures continue to be positive for MRSA. Per infectious disease note she will require removal of her dialysis catheter. She will require GENET once she is hemodynamically stable. Restart home medications. 07/01 while patient was getting dialysis she was nauseated had emesis x1 that is when she went into PEA arrest. She was resuscitated ROSC was obtained patient at this time was intubated. Family updated about patient's overall multiple medical problems. We will add Flagyl to her current antibiotics which is cefepime and vancomycin to cover any anaerobic coverage. Will get abdominal x- ray to rule out any obstruction. Patient's ex- at the bedside updated him of what was going on. Patient's daughter on her way.
--- NOTE | 2020-07-01 17:24 | PDOC.CPN ---
- Subjective Date: 07/01/20 Time: 17:22 Interval history: She was extubated but could not tolerate breathing on her own and had respiratory acidosis due to hypoventilation and had to be re intubated after no significant improvement on BiPAP. She is now on 2 pressors both levophed and Vasopressin. - Review of Systems ROS unobtainable: due to endotracheal tube - Objective Allergies/Adverse Reactions: Allergies Allergy/AdvReac Type Severity Reaction Status Date / Time allopurinol Allergy Severe BLISTERS Verified 05/04/20 15:24 ON HANDS Sulfa (Sulfonamide Allergy Intermediate ITCHING Verified 05/04/20 15:24 Antibiotics) latex Allergy Verified 05/04/20 15:24 Visit Medications: Current Medications Acidophilus (Lactinex Tablet) 1 tab PO DAILY ON LICENSE OF [facility] Last Admin: 07/01/20 13:14 Dose: Not Given Documented by: Albuterol/Ipratropium (Ipratropium/Albuterol Sulfate 3 Ml Neb) 3 ml NEB [id number] ON LICENSE OF [facility] Last Admin: 07/01/20 14:23 Dose: 3 ml Documented by: Atorvastatin Calcium (Atorvastatin Calcium 20 Mg Tab) 20 mg PO HS ON LICENSE OF [facility] Last Admin: 06/30/20 20:16 Dose: 20 mg Documented by: Dextrose/Water (Dextrose 50% Abboject 50 Ml Syringe) 25 gm SLOW IVP PRN PRN PRN Reason: Hypoglycemia Docusate Sodium (Docusate 100 Mg Cap) 100 mg PO BID ON LICENSE OF [facility] Last Admin: 07/01/20 13:14 Dose: Not Given Documented by: Duloxetine HCl (Duloxetine 60 Mg Cap) 60 mg PO DAILY ON LICENSE OF [facility] Last Admin: 07/01/20 13:14 Dose: Not Given Documented by: Ferrous Sulfate (Ferrous Sulfate 325 Mg Tab) 325 mg PO DAILY ON LICENSE OF [facility] Last Admin: 07/01/20 13:14 Dose: Not Given Documented by: Gabapentin (Gabapentin 300 Mg Cap) 300 mg PO BID ON LICENSE OF [facility] Last Admin: 07/01/20 13:14 Dose: Not Given Documented by: Glucagon (Glucagon 1 Mg/Ml Vial) 1 mg IM PRN PRN PRN Reason: Hypoglycemia Heparin Sodium (Porcine) (Heparin 10,000 Units/ 10 Ml Vial) 0 units SLOW IVP ASDIR ON LICENSE OF [facility]; Protocol Last Admin: 06/28/20 23:47 Dose: 6,472 units Documented by: Hydrocortisone Sodium Succinate (Hydrocortisone Sod Succ/Pf 100 Mg/2 Ml Vial) 50 mg IVP Q6HR PASCUAL Stop: 07/08/20 12:01 Last Admin: 07/01/20 13:19 Dose: 50 mg Documented by: Cefepime HCl 0.5 gm/Miscellaneous Medication 1 each/ Sodium Chloride 100 mls @ 200 mls/hr IVPB 2100 PASCUAL Last Admin: 06/30/20 20:16 Dose: 100 mls Documented by: Phenylephrine HCl (Manas-Synephrine) 250 mls @ 0 mls/hr IVPB PRN PRN; Protocol PRN Reason: To maintain MAP > 65 Amiodarone HCl 450 mg/ (Dextrose/Water) 259 mls @ 0 mls/hr IVPB INF PASCUAL; Protocol Last Admin: 07/01/20 00:00 Dose: 259 mls Documented by: Heparin Sodium/Dextrose (Heparin 25,000 Units/D5w) 500 mls @ 0 mls/hr IVPB INF PASCUAL; Protocol Last Admin: 06/28/20 23:46 Dose: 500 mls Documented by: Dextrose/Water (D5w) 1,000 mls @ 0 mls/hr IV .Q0M PRN PRN Reason: Hypoglycemia Vancomycin HCl 1.25 gm/ Sodium (Chloride) 250 mls @ 166.667 mls/hr IVPB WILLCALL PASCUAL Vancomycin HCl 1 gm/ Device 200 mls @ 200 mls/hr IVPB WILLCALL PASCUAL Vancomycin HCl 750 mg/ Sodium (Chloride) 250 mls @ 250 mls/hr IVPB WILLCALL PASCUAL Vancomycin HCl 500 mg/ Sodium (Chloride) 100 mls @ 100 mls/hr IVPB WILLCALL PASCUAL Norepinephrine Bitartrate (Levophed) 250 mls @ 0 mls/hr IVPB INF PASCUAL; Protocol Last Admin: 07/01/20 15:08 Dose: 250 mls Documented by: Fentanyl Citrate 2,000 mcg/ (Sodium Chloride) 100 mls @ 0 mls/hr IV INF PASCUAL; Protocol Stop: 07/31/20 11:30 Last Admin: 07/01/20 11:42 Dose: 100 mls Documented by: Fentanyl Citrate (Fentanyl Bolus) 250 mls @ 0 mls/hr IVPB PRN PRN PRN Reason: Breakthrough pain/agitation Stop: 07/31/20 11:30 Vasopressin 20 unit/Miscellaneous Medication 1 each/ Sodium Chloride 51 mls @ 0 mls/hr IV INF PASCUAL; Protocol Last Admin: 07/01/20 12:37 Dose: 51 mls Documented by: Metronidazole 500 mg/ Device 100 mls @ 100 mls/hr IVPB Q8HR ON LICENSE OF [facility] Insulin Human Lispro (Humalog 300 Units/3 Ml Vial) 0 units SC .MILD SLIDING SCALE PRN PRN Reason: Mild Correctional Scale Last Admin: 07/01/20 09:46 Dose: 2 units Documented by: Lorazepam (Lorazepam 2 Mg/Ml Vial) 2 mg SLOW IVP Q1H PRN PRN Reason: Breakthrough agitation Stop: 07/31/20 11:30 Midodrine (Midodrine Hcl 5 Mg Tab) 5 mg PO TID ON LICENSE OF [facility] Last Admin: 07/01/20 16:30 Dose: 5 mg Documented by: Miscellaneous Medication (Pharmacy To Dose Vancomycin/Abx's) 1 each IVPB PRN PRN PRN Reason: Pharmacy to dose Morphine Sulfate (Morphine 2 Mg/Ml Vial) 2 mg SLOW IVP Q1H PRN PRN Reason: Breakthrough Pain/Agitation Stop: 07/31/20 11:30 Multivitamins (Multivit, Therapeutic 1 Tab) 1 tab PO DAILY ON LICENSE OF [facility] Last Admin: 07/01/20 13:15 Dose: Not Given Documented by: Discontinue Previous Narcotic Pain Medications And Benzodiazepines 1 each FS .ONE ON LICENSE OF [facility] Stop: 07/28/20 21:45 Hold Vancomycin For (Level >20) 0 each FS .AT DIALYSIS ON LICENSE OF [facility] Discontinue Previous Narcotic Pain Medications And Benzodiazepines 1 each FS .ONE ON LICENSE OF [facility] Stop: 07/31/20 11:30 Pantoprazole Sodium (Pantoprazole 40 Mg Tab) 40 mg PO DAILY ON LICENSE OF [facility] Last Admin: 07/01/20 13:15 Dose: Not Given Documented by: Polyethylene Glycol (Polyethylene Glycol 3350 17 Gm Packet) 17 gm PO DAILY ON LICENSE OF [facility] Last Admin: 07/01/20 13:15 Dose: Not Given Documented by: Propofol (Propofol 1,000 Mg/100 Ml Vial) 1,000 mg IV INF PRN; Protocol PRN Reason: TO ACHIEVE GOAL RASS Stop: 07/31/20 11:30 Propofol (Propofol Bolus 1,000 Mg/100 Ml Vial) 20 mg IV Q5MIN PRN PRN Reason: BREAKTHROUGH AGITATION Stop: 07/31/20 11:30 Sodium Chloride (Flush - Normal Saline 10 Ml Syringe) 10 ml IVF Q12HR PASCUAL Last Admin: 07/01/20 13:15 Dose: Not Given Documented by: Sodium Chloride (Flush - Normal Saline 10 Ml Syringe) 10 ml IVF PRN PRN PRN Reason: Saline Flush Vital Signs & Weight: Vital Signs Temp Pulse Resp BP Pulse Ox 07/01/20 16:00 98.4 F 07/01/20 14:24 103 H 150/122 H 07/01/20 13:18 110 H 133/86 07/01/20 12:00 30 H 94 L 07/01/20 10:42 110 H 120/89 07/01/20 08:00 96.2 F L 94 L Admit Weight 178 lb 12.718 oz Weight 179 lb 10.828 oz - Physical Exam General: other (S/I) HEENT: normocephaly Neck: supple neck Cardiac: irregularly regular Lungs: bibasilar rales Neuro: no lateralizing findings Abdomen: active bowel sounds Extremities: other: (3+ edema) Skin: clear Musculoskeletal: no pain - Labs Result Diagrams: 07/01/20 04:15 07/01/20 04:15 Troponin/CKMB CK-MB (CK-2) 2.8 ng/mL (0-6.6) 06/30/20 04:40 Troponin I 0.070 ng/mL (< 0.028) H 06/30/20 04:40 - Telemetry Supraventricular conduction: atrial fibrillation - Assessment/Plan Assessment/Plan: 1. Paroxysmal afib 2. Inappropriate shocks during Afib NOT VT or VF. 3. CAD, no ACS. 4. ESRD on HD 5. Acute on chronic systolic heart failure 6. Persistent MRSA bacteremia 7. Presence of an AICD 8. EF at 30-40%. 9. Extreme deconditioning. 10 . Sepsis due to MRSA. PLAN: - Discussed with Dr. Desozua and agree that she would be very difficult to wean at this point due to extreme deconditioning and septic shock with MRSA. - Would need to exchange all lines and take out AICD as both possible sources of MRSA seeding. Currently not stable for GENET. - She is currently needing both levophed and Vasopressin to maintain BP and remains in heart failure and needs HD for fluid control and is not tolerating it well. - She is severely ill and would not be unexpected. - I had a long discussion with family members, her daughter who is the MPOA. We spoke about any road to a significant recovery would be very long and hard on her if its even possible. She has only gotten worse since arrival and was not strong enough to breath on her own after extubation. Her chances or recovery are minimal at this point. Daughter understands and verbalizes understanding of this. She wants to think about this decision. - Critical Care Time Critical care time (mins): 30
[2020-07-01] MEDS: metroNIDAZOLE 500 MG in Premix Bag 1 BAG IVPB SCH (18:30)
[2020-07-01] MEDS: Amiodarone 450 MG in Dextrose 5% in Water 250 ML IVPB SCH ×2 (19:47)
[2020-07-01] MEDS: Atorvastatin Calcium 20 MG TAB PO SCH (19:58)
[2020-07-01] MEDS: Cefepime 0.5 GM, Admixture Fee 1 EACH in Sodium Chloride 0.9% 100 ML IVPB SCH (23:32)
[2020-07-02 00:20] VITALS: BP 105/72
[2020-07-02] MEDS: metroNIDAZOLE 500 MG in Premix Bag 1 BAG IVPB SCH ×2 (01:31→10:27)
[2020-07-02] MEDS: Vasopressin 20 UNIT, Admixture Fee 1 EACH in Sodium Chloride 0.9% 50 ML IV SCH (02:05)
[2020-07-02] MEDS: Amiodarone 450 MG in Dextrose 5% in Water 250 ML IVPB SCH (02:06)
[2020-07-02] MEDS: Norepinephrine 8 MG/0.9% NS 250 ML IVPB SCH (03:09)
[2020-07-02 03:20] LABS: Base Excess (BEa) -23.9 mEq/L (-2.0 to +3.0); CO2 Tension 33.5 mmHg (35.0-45.0); Calcium, Ionized (arterial) 1.06 mmol/L (1.12-1.30); Carboxyhemoglobin (COHb) 0.3 gm% (0.0-3.0); Hemoglobin (Hb) 8.9 g/dL (12.0-16.0); O2 Tension (PaO2), arterial 67.7 mmHg (> 70.0); Potassium - ABG Lab 5.32 mmol/L (3.70-5.30)
[2020-07-02 03:28] LABS: Puncture Site RRA; pH, Arterial 6.94 (7.35-7.45)
[2020-07-02 03:29] LABS: ALV-art Gradient 603.425 mmHg (0-20)
[2020-07-02 04:53] LABS: Vancomycin, Random 20.2 ug/mL (See Comment)
[2020-07-02 04:54] LABS: ALT (SGPT) 11 U/L (8-55); AST (SGOT) 25 U/L (5-34); Albumin 2.4 g/dL (3.4-4.8); Alkaline Phosphatase 106 U/L (40-110); Anion Gap 32 mmol/L (10-20); BUN (Urea Nitrogen) 37 mg/dL (9.8-20.1); Bilirubin, Total 1.4 mg/dL (0.2-1.2); Calc. Creatinine Clearance 13 mL/min (70-130); Calcium 8.3 mg/dL (7.8-10.44); Carbon Dioxide 8 mmol/L (23-31); Chloride 97 mmol/L (98-107); Critical Call Chemistry ICU.RB@0452; Estimated GFR-MDRD 8; Globulin 2.8 g/dL (2.4-3.5); Glucose 39 mg/dL (83-110); Potassium 5.3 mmol/L (3.5-5.1); Protein, Total 5.2 g/dL (6.0-8.3); Sodium 132 mmol/L (136-145)
[2020-07-02] MEDS: Hydrocortisone Sod Succ/PF 100 mg/2 ml Vial IVP SCH ×2 (05:31→13:31)
[2020-07-02 05:50] LABS: Band 39 % (5-11); Hemoglobin 8.3 g/dL (12.0-16.0); Hypochromia SLIGHT = 6-15 cells (100X) (0-5/hpf); Lymphocytes 6 % (21-51); MDiff Complete? YES; Mean Corpuscular HGB CONC 29.2 g/dL (32.0-36.0); Mean Corpuscular Hemoglobin 33.3 pg (27.0-31.0); Monocytes 2 % (0-10); Myelocyte 1 % (0-0); Neutrophil 52 % (42-75); Nucleated RBC 2 % (0); Platelet Count 93 thou/uL (130-400); Platelet Morphology Comment Appears Decreased; RBC Distribution Width 17.3 % (11.5-14.5); Red Blood Cell (RBC) Count 2.48 mill/uL (4.20-5.40); White Blood Cell (WBC) Count 11.7 thou/uL (4.8-10.8)
--- NOTE | 2020-07-02 07:10 | RAD ---
KUB: Date: 07/01/2020 HISTORY: Possible small bowel obstruction. FINDINGS: There is a relative paucity of bowel gas present. The bowel loops visualized do not appear dilated. A right-sided femoral line is present, catheter tip overlies the confluence of the iliac vein and IVC. IMPRESSION: No definite signs of obstruction. Relative lack of bowel gas. POS: SLIM
[2020-07-02] MEDS ORDERED: Norepinephrine 8 MG/0.9% NS 250 ML ONE (07:13)
--- NOTE | 2020-07-02 08:14 | RAD ---
XR Chest 1 View Portable History: Ventilated patient Comparison: Radiograph prior day Findings: Enteric tube tip above the azalea 1.1 cm. Cardiac device is similar. Diffuse airspace opaci ties are slightly progressed. Left IJ dialysis catheter tip projects over the mid SVC. Large effusions. Impression: Slightly progressive airspace opacities
[2020-07-02 08:18] VITALS: TEMP 97.9
[2020-07-02] MEDS ORDERED: Morphine 4 MG/ML VIAL SLOW IVP PRN (09:22)
[2020-07-02] MEDS ORDERED: Lorazepam 2 MG/ML VIAL SLOW IVP PRN (09:23)
[2020-07-02] MEDS ORDERED: Hyoscyamine Sulfate SL 0.125 mg Tablet SL PRN (09:24)
[2020-07-02] MEDS ORDERED: Scopolamine 1.5 mg/72 hour Patch TOP SCH (09:30)
[2020-07-02] MEDS: Docusate 100 MG CAP PO SCH (09:46)
[2020-07-02] MEDS: DULoxetine 60 MG CAP PO SCH (09:46)
[2020-07-02] MEDS: Midodrine HCl 5 MG TAB PO SCH (09:47)
[2020-07-02] MEDS: Multivit, Therapeutic 1 TAB PO SCH (09:47)
[2020-07-02] MEDS: Gabapentin 300 MG CAP PO SCH (09:47)
[2020-07-02] MEDS: Lactinex Tablet PO SCH (09:47)
[2020-07-02] MEDS: Ferrous Sulfate 325 MG TAB PO SCH (09:47)
[2020-07-02] MEDS: Polyethylene Glycol 3350 17 GM Packet PO SCH (09:48)
--- NOTE | 2020-07-02 16:02 | PRG ---
DATE OF SERVICE: 07/02/2020 SUBJECTIVE: The patient was seen at the bedside. Family members . The patient is not doing well. She had coded this morning and she was having respiratory distress, on the ventilator. OBJECTIVE: GENERAL: This was a well-built female, on ventilator. VITAL SIGNS: Temperature 97.9, pulse 60, respiratory rate 18, blood pressure 78/62 this morning. HEENT: Atraumatic, normocephalic. CV: S1 and S2 heard. RESPIRATORY: . MUSCULOSKELETAL: 2+ edema. NEUROLOGIC: Intubated. LABORATORY DATA: Potassium 5.3, bicarb 8, BUN 77, creatinine 5.01. ASSESSMENT AND PLAN: 1. End-stage renal disease with hypotension and the patient not able to tolerate dialysis. 2. Hyperkalemia. 3. Severe acidosis. 4. Methicillin-resistant Staphylococcus aureus bacteremia. 5. Chronic anemia. 6. Acute hypoxic respiratory failure. The patient's prognosis is poor. Family understood that, and multiple discussions with other providers and decided to compassionately extubate her and the patient later this afternoon. Emotional support given to the family. Job ID: [id number]
--- NOTE | 2020-07-03 02:09 | DIS ---
DATE OF ADMISSION: 06/28/2020 DATE OF DISCHARGE: 07/02/2020 DATE OF EXPIRATION: 07/02/2020 at 12:08 p.m. HOSPITAL COURSE: The patient is a very pleasant 70-year-old female, who initially presented to the hospital on 06/28 for V-tach and was found to be unresponsive. At this time, she was intubated. She was known to have MRSA bacteremia. At this time, she was put on IV antibiotics and was admitted to the ICU. The patient was seen by multiple subspecialties including Pulmonology, Cardiology, Infectious Disease. The patient did undergo a CTA which had bilateral pleural effusion. No evidence of pulmonary embolism and significant ascites. She also had end-stage renal disease and was on dialysis. The patient was then extubated; however, while she was getting her dialysis, she got nauseated, threw up, and at this time, went into respiratory distress and was intubated. She then went into a PEA arrest and was resuscitated appropriately. However, patient continued to deteriorate. Her repeat blood cultures also came back positive for MRSA. She had an AICD and a dialysis catheter. The patient's family then decided to withdraw care. At this time, patient peacefully. Condolences to the family and all the questions were answered to the family. Job ID: [id number]
--- NOTE | 2020-07-03 16:52 | EKG ---
Test Reason : CODE BLUE Blood Pressure : / mmHG Vent. Rate : 113 BPM Atrial Rate : 113 BPM P-R Int : 000 ms QRS Dur : 132 ms QT Int : 354 ms P-R-T Axes : 000 -52 098 degrees QTc Int : 485 ms Atrial fibrillation with rapid ventricular response with premature ventricular or aberrantly conducte d complexes Left axis deviation Right bundle branch block Possible Lateral infarct , age undetermined Inferior infarct , age undetermined Abnormal ECG Confirmed by DR. Augusto SMALLWOOD ([id number]) on 07/03/2020 4:52:18 PM Referred By: LUISA Confirmed By:DR. Augusto SMALLWOOD
--- NOTE | 2020-07-07 02:47 | PQF ---
CLINICAL DOCUMENTATION CLARIFICATION FORM: Dear : Cathie Alan MD Date / Time: 07/07/2020 Please exercise your independent, professional judgment in responding to the clarification form. Clinical indicators are provided on the bottom of this form for your review Diagnosis: Sepsis Present on Admission (POA): [x ] Yes [ ] No [ ] Unable to determine Physician Signature: Date/Time: For continuity of documentation, please document condition throughout progress notes and discharge summary. Thank You. To be completed by CDI/Coding staff for physician review: Present Clinical Indicators - Signs / Symptoms / Labs Results and Location in Medical Record [x] MRSA bacteremia Hospital progress notes on 06/29 [x] Septic shock Hospital progress notes on 06/30 [x] Sepsis due to MRSA Cardiology progress notes on 07/01 [x] She was diagnosed with MRSA bacteremia secondary to infected left AV graft H&P on 06/28 Present Risk Factors Results and Location in Medical Record [x] Aged person 70 yrs H&P on 06/28 [x] Diabetes H&P on 06/28 Present Treatments Results and Location in Medical Record [x] Vancomycin 1gm IV Medication on 06/28 [x] Vancomycin 1.5gm IV Medication on 06/28, 06/29 [x] Vancomycin 1.25gm IV Medication from 06/28 to07/02 [ ] CDS/Mechanical Engineering Advisor Signature: AAS Phone #: Date/Time: 07/07/2020 This is a permanent part of the Medical Record [facility]
--- NOTE | 2020-07-07 03:55 | PQF ---
CLINICAL DOCUMENTATION CLARIFICATION FORM: Dear : Dayanna Brand MD Date / Time: 07/07/2020 Please exercise your independent, professional judgment in responding to the clarification form. Clinical indicators are provided on the bottom of this form for your review Please check appropriate box(es): to clarify the source of sepsis [ ] Sepsis due to dialysis catheter [ ] Sepsis due to AICD [ ] Other diagnosis (Please specify if any) [x ] Unable to determine Physician Signature: Date/Time: For continuity of documentation, please document condition throughout progress notes and discharge summary. Thank You To be completed by CDI/Coding staff for physician review: Present Clinical Indicators - Signs / Symptoms / Labs Results and Location in Medical Record [x] Patient was recently discharged from hospitalization here. She was diagnosed with MRSA bacteremia secondary to infected left AV graft H&P on 06/28 [x] Infection of AV graft for dialysis H&P on 06/28 [x] Persistence of methicillin-resistant staphylococcus aureus bacteremia throughout the last hospital stay, indicating colonization either of the left- tunneled hemodialysis catheter or AICD or both Consult on 06/29 [x] Methicillin resistant staphylococcus aureus bacteremia with possible hardware infections associated with this Progress notes on 05/31 [x] Her repeat blood cultures also came back positive for MRSA Discharge summary on 07/02 [x] Would need to exchange all lines and take out AICD as both possible sources of MRSA seeding Cardiology progress notes on 07/01 [x] Multiorgan failure, staphylococcus sepsis Progress notes on 06/01 Present Risk Factors Results and Location in Medical Record [x] Aged person 70 yrs H&P on 06/28 [x] AICD H&P on 06/28 [x] Temporary dialysis catheter H&P on 06/28 Present Treatments Results and Location in Medical Record [x] Vancomycin 1gm IV Medication on 06/28 [x] Vancomycin 1.5gm IV Medication on 06/28, 06/29 [x] Vancomycin 1.25gm IV Medication on 06/28 to 07/02 [ ] CDS/[employer] Caretaker Signature: AAS Phone #: Date/Time: 07/07/2020 This is a permanent part of the Medical Record [facility]
== END 2020-07-02 13:55 | disposition expired | DRG 871 ==
LOC: ERS 17:49 → CCU 18:25
PROVIDERS: ADMIT Internal Medicine; ATTEND Internal Medicine
PROC: 5A1945Z Respiratory Ventilation, 24-96 Consecutive Hours (ICD-10-PCS; 2020-06-28)
PROC: 5A12012 Performance of Cardiac Output, Single, Manual (ICD-10-PCS; principal; 2020-07-01)
PROC: 5A1D70Z Performance of Urinary Filtration, Intermittent, Less than 6 Hours Per Day (ICD-10-PCS; 2020-07-01)
DX: A41.02 Sepsis due to Methicillin resistant Staphylococcus aureus (principal); I50.23 Acute on chronic systolic (congestive) heart failure; J96.01 Acute respiratory failure with hypoxia; R65.21 Severe sepsis with septic shock; N18.6 End stage renal disease; J96.02 Acute respiratory failure with hypercapnia; Z51.5 Encounter for palliative care; Z66 Do not resuscitate; I47.2 Ventricular tachycardia; I13.2 Hypertensive heart and chronic kidney disease with heart failure and with stage 5 chronic kidney disease, or end stage renal disease; I82.629 Acute embolism and thrombosis of deep veins of unspecified upper extremity; E87.2 Acidosis; I42.0 Dilated cardiomyopathy; T82.897A Other specified complication of cardiac prosthetic devices, implants and grafts, initial encounter; I50.32 Chronic diastolic (congestive) heart failure; D63.1 Anemia in chronic kidney disease; I48.0 Paroxysmal atrial fibrillation; I46.2 Cardiac arrest due to underlying cardiac condition; E11.69 Type 2 diabetes mellitus with other specified complication; D64.9 Anemia, unspecified; M19.90 Unspecified osteoarthritis, unspecified site; R57.0 Cardiogenic shock; F32.9 Major depressive disorder, single episode, unspecified; E11.22 Type 2 diabetes mellitus with diabetic chronic kidney disease; E55.9 Vitamin D deficiency, unspecified; I25.5 Ischemic cardiomyopathy; R53.81 Other malaise; I25.10 Atherosclerotic heart disease of native coronary artery without angina pectoris; M10.9 Gout, unspecified; E87.5 Hyperkalemia; B95.62 Methicillin resistant Staphylococcus aureus infection as the cause of diseases classified elsewhere; I25.2 Old myocardial infarction; Z90.49 Acquired absence of other specified parts of digestive tract; Z88.8 Allergy status to other drugs, medicaments and biological substances; Z91.040 Latex allergy status; Z88.2 Allergy status to sulfonamides; Z79.899 Other long term (current) drug therapy; Z79.82 Long term (current) use of aspirin; Z99.2 Dependence on renal dialysis; Z95.810 Presence of automatic (implantable) cardiac defibrillator; Z95.5 Presence of coronary angioplasty implant and graft; T82.7XXD Infection and inflammatory reaction due to other cardiac and vascular devices, implants and grafts, subsequent encounter
CPT/HCPCS: 36415; 36416; 36556; 51702; 70450; 71045; 71275; 74018; 80053; 80202; 81003; 81015; 82553; 82805; 83735; 84100; 84443; 84484; 85007; 85025; 85027; 85610; 85730; 87040; 87070; 87077; 87147; 87149; 87186; 87205; 90935; 92950; 93005; 93010; 93306; 94002; 94003; 94640; 96365; 96366; 96375; G0257; J0171; J0282; J0692; J1644; J1720; J2250; J2270; J3010; J3370; J3490; J7050; J7070; J7620; P9047; Q9967